=== PATIENT | male | born 1945 | race Caucasian/White ===

== ENCOUNTER 2022-11-26 12:19 | Emergency (ER) | payer MEDICARE, SELFPAY ==
[2022-11-26] VITALS (8 sets, daily range): BP systolic 113–168; BP diastolic 56–79; PULSE 54–74; RESP 15–18; TEMP 36.4; O2SAT 97–100
--- NOTE | ~2022-11-26 | XR_ITS ---
EXAMINATION: XR chest 2V DATE: 11/26/2022 12:47 INDICATION: Weakness TECHNIQUE: AP and lateral views of the chest are obtained. COMPARISON: None available FINDINGS: The lungs are free of acute opacities. No pleural effusion or pneumothorax. The cardiomedia stinal silhouette is normal. There are bridging osteophytes at multiple levels in the spine, consiste nt with diffuse idiopathic skeletal hyperostosis (DISH). IMPRESSION: 1. No acute cardiopulmonary abnormality. Reviewed, dictated and finalized at location A.
--- NOTE | 2022-11-26 12:32 | ECG_ITS ---
Measurements Intervals [place] Rate: 53 P: 3 NM: 163 QRS: -2 QRSD: 106 T: 22 QT: 448 QTc: 424 Interpretive Statements SINUS BRADYCARDIA NO PREVIOUS ECG AVAILABLE FOR COMPARISON Electronically Signed On 11-26-2022 19:21:57 CDT by Irene Aviles M.D.
--- NOTE | 2022-11-26 12:39 | ED.WEAKNESS ---
HPI - Weakness General Chief complaint: Weakness Stated complaint: weakness Time Seen by Provider: 11/26/22 12:22 History of Present Illness HPI Narrative: Patient is a 77-year-old male with a history of hypertension, HFpEF (EF 70%), diabetes presenting with lightheadedness. Patient and his family report that he was recently admitted to [place] for CHF exacerbation. They state that he was started on double the dose of Lasix and he has since lost approximately 40 pounds in the last month. Patient states that he continues to urinate a lot. For the last day and a half he has noticed lightheadedness whenever he stands. States that today he felt so lightheaded when he stood that he had to sit down for fear of passing out. EMS was called and he was noted to have some soft pressures in the 90s over 50s. He denies any chest pain, shortness of breath, palpitations, leg swelling. Denies headache, vision changes, speech changes, numbness or weakness. Denies abdominal pain, vomiting, diarrhea, dysuria. Related Data Home Medications Medication Instructions Recorded Confirmed chlorthalidone 25 mg tablet 25 mg PO DAILY 10/21/20 11/27/22 carvedilol 12.5 mg tablet (Coreg) 25 mg PO Q12HR 11/27/22 11/27/22 furosemide 40 mg tablet 40 mg PO DAILY 11/27/22 11/27/22 gabapentin 100 mg capsule 100 mg PO BID 11/27/22 11/27/22 spironolactone 25 mg tablet 12.5 mg PO BID 11/27/22 11/27/22 Allergies Allergy/AdvReac Type Severity Reaction Status Date / Time LAUREN Inhibitors Allergy Cough Verified 11/27/22 10:53 enalapril Allergy Cough Verified 11/27/22 10:53 lisinopril Allergy Cough Verified 11/27/22 10:53 quinapril Allergy Cough Verified 11/27/22 10:53 Review of Systems Review of Systems: All systems reviewed & are unremarkable except as noted in HPI and below PMFSH Past Medical History Medical History Arthritis CHF (congestive heart failure), NYHA class I COPD (chronic obstructive pulmonary disease) Depression Diabetes Surgical History Surgical History H/O foot surgery History of total knee replacement (TKR) Hx of cholecystectomy S/P insertion of penile implant Family History Family History Father Cancer Diabetes mellitus Mother Hyperlipidemia Hypertension Heart attack Sibling Hx of CABG Colon cancer Social History Social History (Updated 11/27/22 @ 20:30 by Courtney Talamantes NP) Social History: The patient lives with his . He is retired from [employer]. 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 Code status full code Smoking packs per day: 2 Smoking cigarettes per day: 40.0 Smoking status: Former smoker Tobacco type: cigarettes Second hand tobacco smoke exposure: No Alcohol intake: former Alcohol use details: wine every now and then Substance use: never Substance use type: does not use Lack of Transportation: No Lack of Food: Never True Current Housing: I Have Housing Concerned About Future Housing: No Difficulty Paying Gas/Electric Bills: No Difficulty Paying for Meds: No Currently Unemployed: No Education: High School Diploma/GED Difficulty w/ Childcare or Family Care: No Living arrangements: with family Additional living arrangements comments: - bro 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 HEAD: Normocephalic, atraumatic. EYES: PERRLA and EOMI. ENT: Nares clear, no rhinorrhea or epistaxis. Mucous membranes dry and tacky. NECK: Supple. CHEST: Clear to auscultation. No res
[2022-11-26 12:42] LABS: Basophils Absolute Auto 0.2 K/mm3 (0.0-0.1); Basophils Percent Auto 1.3 % (0.2-1.2); Eosinophils Absolute Auto 0.6 K/mm3 (0-0.3); Eosinophils Percent Auto 4.1 % (0-4.4); Hematocrit 34.4 % (42.0-52.0); Hemoglobin 11.1 g/dL (14.0-18.0); Immature Granulocyte Absolute 0.06 K/mm3 (0.00-0.031); Immature Granulocyte Percent A 0.4 % (0-0.5); Lymphocytes Absolute Auto 1.53 K/mm3 (0.9-3.2); Lymphocytes Percent Auto 10.8 % (18.3-44.2); Mean Corpuscular HGB Conc 32.3 g/dl (32-36); Mean Corpuscular Hemoglobin 33.5 pg (26-34); Mean Corpuscular Volume 103.9 fl (80-100); Mean Platelet Volume 9.9 fl (7.4-10.4); Monocytes Absolute Auto 0.7 K/mm3 (0.1-0.6); Neutrophils Absolute Auto 11.2 K/mm3 (1.3-6.7); Neutrophils Percent Auto 78.4 % (45.5-73.1); Platelet Count Result 631 k/mm3 (150-375); Red Blood Count 3.31 M/mm3 (4.6-6.20); White Blood Count 14.2 K/mm3 (4.5-10.0)
[2022-11-26 13:02] LABS: Alanine Aminotransferase 49 U/L (6-50); Albumin Level 4.4 g/dL (3.5-5.1); Alkaline Phosphatase 133 U/L (38-126); Anion Gap 10 mmol/L (8-16); Aspartate Amino Transferase 43 U/L (17-59); Bilirubin,Total 0.7 mg/dL (0.2-1.3); Blood Urea Nitrogen 92 mg/dL (9-20); Calcium 9.4 mg/dL (8.4-10.2); Carbon Dioxide 26 mmol/L (22-30); Chloride 102 mmol/L (98-107); Estimated CRCL calculation 24 ml/min; Estimated Glomerular Filt Rate 22; Glucose 211 mg/dL (65-110); Potassium 5.1 mmol/L (3.4-5.0); Sodium 138 mmol/L (137-145)
[2022-11-26] MEDS: LACTATED RINGERS 1,000 ML 999 ML IV CONT (13:40)
[2022-11-26 14:25] LABS: INR 1.1; Prothrombin Time 14.1 Seconds (11.1-14.7)
[2022-11-26 14:26] LABS: Partial Thromboplastin Time 29.2 SECONDS (22.3-36.8)
[2022-11-26 14:45] LABS: NT Pro B Type Natriuretic Pept 822 pg/mL (19.9-100); Troponin I < 0.012 ng/mL (0.000-0.034)
[2022-11-26 16:52] LABS: Appearance Urine Cloudy (Clear); Bacteria Urine Rare /hpf; Bilirubin Urine Negative (Negative); Blood Urine 3+ (Negative); Color Urine Yellow (Yellow); Glucose Urine UA Negative (Negative); Ketones Urine Negative (Negative); Leukocyte Esterase Ur 2+ LEU/UL (Negative); Need Manual Microscopic Reviewed; Nitrate Urine Negative (Negative); Protein Urine 2+ mg/dL (Negative); RBC Urine >100 /hpf (0-2); Specific Grav Ur 1.014 (1.001-1.035); Squamous Epithelial Cell Urine Moderate /hpf (Few); Urobilinogen Urine 0.2 mg/dL (<2.0); WBC Urine 51-100 /hpf
[2022-11-26 17:00] LABS: Add Urine Microscopic? YES
[2022-11-26] MEDS: CEPHALEXIN 500 MG CAPSULE PO (17:48)
[2022-11-26 18:01] LABS: Troponin I < 0.012 ng/mL (0.000-0.034)
== END 2022-11-26 19:00 | disposition home or self-care (01) ==
PROVIDERS: Emergency Medicine; Emergency Provider Emergency Medicine; PCP Hospitalist
DX: I50.9 Heart failure, unspecified (principal); N39.0 Urinary tract infection, site not specified; E86.0 Dehydration; M19.90 Unspecified osteoarthritis, unspecified site; J44.9 Chronic obstructive pulmonary disease, unspecified; F32.A Depression, unspecified; E11.9 Type 2 diabetes mellitus without complications
CPT/HCPCS: 36415; 71046; 80053; 81001; 83605; 83880; 84484; 85025; 85610; 85730; 87086; 87147; 87181; 87186; 93005; 96360; 96361; 99284; A9270; J7120

== ENCOUNTER 2022-11-27 10:33 | Inpatient (IN) | payer MEDICARE, SELFPAY ==
[2022-11-27] VITALS (47 sets, daily range): BP systolic 85–166; BP diastolic 43–75; PULSE 57–86; RESP 12–23; TEMP 36.4–36.9; O2SAT 90–99; BMI 32.3
--- NOTE | ~2022-11-27 | CT_ITS ---
EXAMINATION: CT brain wo con DATE: 11/27/2022 15:19 INDICATION: Dizziness. TECHNIQUE: Computed tomography (CT) of the head was performed without intravenous contrast. The dose- length product was 605.33 mGy-cm. Automated exposure control and iterative reconstruction technique w ere employed. COMPARISON: None FINDINGS: Generalized atrophy. There are scattered mild periventricular and subcortical white matter changes, most likely related to small vessel ischemic disease (microangiopathy). No acute intracrania l hemorrhage, infarction, mass or mass effect. No ventriculomegaly or midline shift. Basilar cisterns are patent. There is intracranial atherosclerosis. Paranasal sinuses and mastoids are pneumatized. N o depressed skull fractures. IMPRESSION: 1. No acute intracranial abnormality. 2: Chronic age-related findings. Reviewed, dictated and finalized at location A.
--- NOTE | ~2022-11-27 | XR_ITS ---
Clinical Indication: Weakness AP and lateral views of the chest: Comparison: 11/26/2022 Findings: The lungs are clear, without evidence of focal consolidation or pleural effusion. Cardiome diastinal silhouette is within normal limits. Bones and soft tissues are unremarkable. Impression: Normal chest. Reviewed, dictated and finalized at location . Impression: Normal chest.
--- NOTE | 2022-11-27 10:46 | ECG_ITS ---
Measurements Intervals [place] Rate: 60 P: 21 [place]: 168 QRS: -16 QRSD: 102 T: 40 QT: 412 QTc: 413 Interpretive Statements SINUS RHYTHM NORMAL ELECTROCARDIOGRAM COMPARED TO ECG 11/26/2022 12:36:53 SINUS RHYTHM NOW PRESENT Electronically Signed On 11-28-2022 6:51:58 CDT by Ahmet Diaz M.D.
[2022-11-27 11:00] LABS: Basophils Absolute Auto 0.1 K/mm3 (0.0-0.1); Basophils Percent Auto 1.1 % (0.2-1.2); Eosinophils Absolute Auto 0.1 K/mm3 (0-0.3); Hematocrit 30.7 % (42.0-52.0); Immature Granulocyte Absolute 0.05 K/mm3 (0.00-0.031); Immature Granulocyte Percent A 0.4 % (0-0.5); Lymphocytes Absolute Auto 0.36 K/mm3 (0.9-3.2); Lymphocytes Percent Auto 2.9 % (18.3-44.2); Mean Corpuscular HGB Conc 32.6 g/dl (32-36); Mean Corpuscular Volume 101.3 fl (80-100); Mean Platelet Volume 9.8 fl (7.4-10.4); Monocytes Absolute Auto 0.6 K/mm3 (0.1-0.6); Neutrophils Percent Auto 89.6 % (45.5-73.1); Platelet Count Result 569 k/mm3 (150-375); Red Blood Count 3.03 M/mm3 (4.6-6.20); White Blood Count 12.2 K/mm3 (4.5-10.0)
[2022-11-27 11:11] LABS: Alanine Aminotransferase 41 U/L (6-50); Albumin Level 4.1 g/dL (3.5-5.1); Alkaline Phosphatase 117 U/L (38-126); Anion Gap 9 mmol/L (8-16); Aspartate Amino Transferase 30 U/L (17-59); Bilirubin,Total 0.6 mg/dL (0.2-1.3); Blood Urea Nitrogen 79 mg/dL (9-20); Calcium 8.8 mg/dL (8.4-10.2); Carbon Dioxide 26 mmol/L (22-30); Chloride 101 mmol/L (98-107); Estimated CRCL calculation 27 ml/min; Estimated Glomerular Filt Rate 25; Glucose 285 mg/dL (65-110); Potassium 4.9 mmol/L (3.4-5.0); Sodium 136 mmol/L (137-145)
[2022-11-27] MEDS: SODIUM CHLORIDE 0.9% IV 1,000 ML 999 ML IV CONT (11:58)
--- NOTE | 2022-11-27 13:41 | ED.GENADULT ---
HPI - General Adult General Chief complaint: Dizziness Stated complaint: fall/ dizzy/ uti Time Seen by Provider: 11/27/22 10:34 History of Present Illness HPI narrative: Patient is a 77-year-old male who presents ER with dizziness and fall. Patient was seen in the ER yesterday for orthostasis and a UTI. He recovered well after fluids. He had been suffering likely due to overdiuresis with Lasix and spironolactone as well as losartan. Patient reports he got up and was walking and became very lightheaded when he fell onto his buttock. He did not strike his head or lose consciousness. He has no injury to his extremities. He reports he did not fill his antibiotic yesterday. Denies fevers or chills or sweats. Related Data Home Medications Medication Instructions Recorded Confirmed chlorthalidone 25 mg tablet 25 mg PO DAILY 10/21/20 11/27/22 carvedilol 12.5 mg tablet (Coreg) 25 mg PO Q12HR 11/27/22 11/27/22 furosemide 40 mg tablet 40 mg PO DAILY 11/27/22 11/27/22 gabapentin 100 mg capsule 100 mg PO BID 11/27/22 11/27/22 spironolactone 25 mg tablet 12.5 mg PO BID 11/27/22 11/27/22 Allergies Allergy/AdvReac Type Severity Reaction Status Date / Time LAUREN Inhibitors Allergy Cough Verified 11/27/22 10:53 enalapril Allergy Cough Verified 11/27/22 10:53 lisinopril Allergy Cough Verified 11/27/22 10:53 quinapril Allergy Cough Verified 11/27/22 10:53 Review of Systems Review of Systems: All systems reviewed & are unremarkable except as noted in HPI and below Constitutional: Constitutional: Denies chills, Denies fatigue and Denies fever(s) ENT: Denies nasal congestion and Denies sore throat Cardiovascular: Cardiovascular: Denies chest pain, Denies rapid heart rate and Denies radiating jaw, neck or arm pain Respiratory: Respiratory: Denies cough and Denies dyspnea Gastrointestinal: Gastrointestinal: Denies abdominal pain, Denies nausea and Denies vomiting Neurologic: Reports dizziness, Denies syncope, Denies headache(s), Denies focal weakness and Denies numbness PMFSH Past Medical History Medical History Arthritis CHF (congestive heart failure), NYHA class I Depression Diabetes Surgical History Surgical History History of total knee replacement (TKR) Family History Family History Father Cancer Diabetes mellitus Mother Hyperlipidemia Hypertension Heart attack Sibling Hx of CABG Colon cancer Social History Social History Smoking packs per day: 2 Smoking cigarettes per day: 40.0 Smoking status: Former smoker Tobacco type: cigarettes Second hand tobacco smoke exposure: No Alcohol intake: former Alcohol use details: wine every now and then Substance use: never Substance use type: does not use Lack of Transportation: No Lack of Food: Never True Current Housing: I Have Housing Concerned About Future Housing: No Difficulty Paying Gas/Electric Bills: No Difficulty Paying for Meds: No Currently Unemployed: No Education: High School Diploma/GED Difficulty w/ Childcare or Family Care: No Living arrangements: with family Additional living arrangements comments: - bro 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 HEAD: Normocephalic, atraumatic. EYES: PERRL and EOMI. ENT: Mucous membranes moist. CHEST: Clear to auscultation. No respiratory distress. HEART: Regular rate and rhythm. Normal peripheral pulses. ABDOMEN: Soft, nontender, nondistended.
--- NOTE | 2022-11-27 16:18 | PM.IMHP ---
H&P: HPI History of Present Illness Date/Time: 11/27/22 16:18 Chief Complaint: Dizziness Narrative: This is a 77-year-old male patient who had been in the emergency room at yesterday. He had been complaining of weakness and dizziness and lightheadedness yesterday. The patient reported that he was recently admitted to [facility] for congestive heart failure. The patient stated that he had a double dose of Lasix and since then he has lost approximately 40 lb in the last month according to the patient. The patient continues to urinate quite frequently. The patient noticed that he has more lightheaded when he stands. The patient had to immediately sit down after standing up yesterday as he felt like he was going to pass out. His blood pressures and noted to be soft yesterday. His workup was concerning for urinary tract infection. Antibiotics had already been prescribed. He was instructed to increase his fluid intake over the next several days. Is recommended for the patient to drink Gatorade or Powerade. The patient had been discharged home and has been on Keflex. The patient returns today with dizziness and falling. His white count is noted to be 12.2. H&H is 10.0 and 30.7. Sodium is 136. BUN is 79 creatinine 2.5. This is his baseline. Blood sugars 285 and then 264. His urine from yesterday was cloudy and had 2+ protein and 3+ blood patient had 2+ leukocyte esterase and WBCs 51-100. The patient has been on Keflex. Urine cultures pending. The patient was found have orthostatic blood pressures in the emergency room. Blood pressure is 121/65 and then 101/43 standing. The patient was given IV fluids and Rocephin. Patient is being admitted to observation status on the date of service of 11/27/2022. Review of Systems Review of Systems: All systems reviewed & are unremarkable except as noted in HPI and below Constitutional: Constitutional: Reports as per HPI and Reports no additional constitutional complaints Eyes: Eyes: Reports as per HPI and Reports no additional eye complaints ENT: Reports system reviewed and no additional complaints, except as documented and Reports Normal hearing present Cardiovascular: Cardiovascular: Reports no additional cardiovascular complaints Respiratory: Respiratory: Reports no additional respiratory complaints and Reports no additional respiratory complaints Gastrointestinal: Gastrointestinal: Reports as per HPI and Reports no additional gastrointestinal complaints Musculoskeletal: Musculoskeletal: Reports no additional musculoskeletal complaints Integumentary/Breasts: Skin/Breast: Reports system reviewed and no additional complaints, except as docu and Reports as per HPI Neurologic: Reports system reviewed and no additional complaints, except as documented, Reports as per HPI and Reports Normal hearing present Psychiatric: Psychiatric: Reports no additional psychiatric complaints and Reports as per HPI Endocrine: Endocrine: Reports no additional endocrine complaints Hematologic/Lymphatic: Hematologic/Lymphatic: Reports no additional hematologic/lymphatic complaints Allergic/Immunologic: Allergic/Immunologic: Reports no additional allergic/immunologic complaints FOR[facility]LY [facility], [facility] Past Medical History Medical History Arthritis CHF (congestive heart failure), NYHA class I COPD (chronic obstructive pulmonary disease) Depression Diabetes Surgical History Surgical History H/O foot surgery History of total knee replacement (TKR) Hx of cholecystectomy S/P insertion of penile implant Family History Family History Father Cancer Diabetes mellitus Mother Hyperlipidemia Hypertension Heart attack Sibling Hx of CABG Colon cancer Social History Social History (Updated 11/27/22 @ 20:30 by Courtney Talamantes NP) Social History:
[2022-11-27 17:11] LABS: Glucose Point of Care 264 mg/dl (65-105)
[2022-11-27] MEDS: INSULIN ASPART (*BKC) 100 UNITS/ML SUB-Q (18:24)
[2022-11-27 20:25] LABS: Glucose Point of Care 344 mg/dl (65-105)
[2022-11-27] MEDS: INSULIN ASPART (*BKC) 100 UNITS/ML 6 UNITS SUB-Q (20:48)
[2022-11-27] MEDS: INSULIN GLARGINE (*BKC) 100 UNITS/ML 24 UNITS SUB-Q (21:41)
[2022-11-27] MEDS: GABAPENTIN 100 MG CAPSULE PO (22:01)
[2022-11-27 22:08] LABS: Hematocrit 30.8 % (42.0-52.0); Hemoglobin 10.1 g/dL (14.0-18.0)
[2022-11-28] VITALS (21 sets, daily range): BP systolic 106–156; BP diastolic 51–74; PULSE 64–86; RESP 15–20; TEMP 36.1–37; O2SAT 95–98
[2022-11-28] MEDS: LEVALBUTEROL NEB 1.25 MG/3 ML 0.63 MG INHALATION ×4 (03:10→19:36)
[2022-11-28 05:25] LABS: Basophils Absolute Auto 0.2 K/mm3 (0.0-0.1); Basophils Percent Auto 1.9 % (0.2-1.2); Eosinophils Absolute Auto 0.7 K/mm3 (0-0.3); Eosinophils Percent Auto 7.2 % (0-4.4); Hematocrit 31.6 % (42.0-52.0); Hemoglobin 10.3 g/dL (14.0-18.0); Immature Granulocyte Absolute 0.04 K/mm3 (0.00-0.031); Immature Granulocyte Percent A 0.4 % (0-0.5); Lymphocytes Absolute Auto 1.26 K/mm3 (0.9-3.2); Lymphocytes Percent Auto 12.9 % (18.3-44.2); Mean Corpuscular HGB Conc 32.6 g/dl (32-36); Mean Corpuscular Hemoglobin 33.4 pg (26-34); Mean Corpuscular Volume 102.6 fl (80-100); Mean Platelet Volume 9.9 fl (7.4-10.4); Monocytes Percent Auto 10.2 % (2.6-8.5); Neutrophils Absolute Auto 6.6 K/mm3 (1.3-6.7); Neutrophils Percent Auto 67.4 % (45.5-73.1); Platelet Count Result 498 k/mm3 (150-375); Red Blood Count 3.08 M/mm3 (4.6-6.20); Red Cell Distribution Width 18.2 % (11.5-14.5); White Blood Count 9.8 K/mm3 (4.5-10.0)
[2022-11-28 05:26] LABS: Lactic Acid Reflex 0.7 mmol/L (0.7-2.0)
[2022-11-28 05:28] LABS: Magnesium 1.8 mg/dL (1.6-2.3)
[2022-11-28 06:02] LABS: Hemoglobin A1C 5.1 % (<5.7)
[2022-11-28 08:09] LABS: Glucose Point of Care 212 mg/dl (65-105)
[2022-11-28 08:13] LABS: Hematocrit 31.7 % (42.0-52.0); Hemoglobin 10.4 g/dL (14.0-18.0)
[2022-11-28 08:16] LABS: Alanine Aminotransferase 40 U/L (6-50); Albumin Level 3.7 g/dL (3.5-5.1); Alkaline Phosphatase 109 U/L (38-126); Anion Gap 6 mmol/L (8-16); Aspartate Amino Transferase 34 U/L (17-59); Bilirubin,Total 0.4 mg/dL (0.2-1.3); Blood Urea Nitrogen 72 mg/dL (9-20); Calcium 8.7 mg/dL (8.4-10.2); Carbon Dioxide 28 mmol/L (22-30); Chloride 102 mmol/L (98-107); Estimated CRCL calculation 28 ml/min; Estimated Glomerular Filt Rate 26; Glucose 243 mg/dL (65-110); Potassium 4.8 mmol/L (3.4-5.0); Sodium 136 mmol/L (137-145)
[2022-11-28] MEDS: GABAPENTIN 100 MG CAPSULE PO ×2 (08:28→17:46)
[2022-11-28] MEDS: buPROPion HCL 75 MG TABLET PO ×2 (08:28→20:50)
[2022-11-28] MEDS: ASPIRIN 81 MG CHEWABLE TABLET PO (08:28)
[2022-11-28] MEDS: PANTOPRAZOLE 40 MG TABLET PO (08:28)
[2022-11-28] MEDS: SERTRALINE HCL 25 MG TABLET PO (08:28)
[2022-11-28] MEDS: INSULIN ASPART (*BKC) 100 UNITS/ML SUB-Q ×3 (08:45→18:12)
[2022-11-28 12:14] LABS: Glucose Point of Care 393 mg/dl (65-105)
--- NOTE | 2022-11-28 13:16 | PM.IMPN ---
Progress Note: A&P Assessment and Plan (1) Orthostatic hypotension: Code(s): I95.1 - Orthostatic hypotension Status: Acute Assessment and Plan: He has been complaining of dizziness. Especially when he stands up. Patient has orthostatic hypotension. patient recently diagnosed with CHF and started on spironolactone, furosemide and chlorthalidone. The patient has been on diuretics. Diuretics put on hold. I did order CT of the head which shows no acute intracranial abnormality. Chronic age-related findings. Orthostatics Q shift Check stool for occult blood. H&H every 6 hours. Patient denies any dark stools or any active bleeding. He is on an aspirin but not any anticoagulations. (2) Acute UTI: Code(s): N39.0 - Urinary tract infection, site not specified Status: Acute Assessment and Plan: The patient had been on Keflex outpatient Urine and blood cultures are pending Continue with Rocephin Patient did also feel dizzy due to his infectious process. Tailor antibiotic therapy to culture results (3) Chronic anemia: Code(s): D64.9 - Anemia, unspecified Status: Acute Assessment and Plan: Check stool for occult blood H&H every 6 hours. (4) Chronic kidney disease: Code(s): N18.9 - Chronic kidney disease, unspecified Status: Acute Assessment and Plan: His BUN is 79 creatinine 2.5 the patient is at his baseline. His GFR is 25. (5) COPD (chronic obstructive pulmonary disease): Code(s): J44.9 - Chronic obstructive pulmonary disease, unspecified Status: Acute Assessment and Plan: There is a nationwide shortage on albuterol so will continue with Xopenex instead. (6) Diabetes mellitus: Code(s): E11.9 - Type 2 diabetes mellitus without complications Status: Acute Assessment and Plan: Accu-Cheks AC and HS with sliding scale insulin. Check A1c. Continue with Lantus\ (7) Diastolic congestive heart failure: Code(s): I50.30 - Unspecified diastolic (congestive) heart failure Status: Acute Assessment and Plan: The patient has orthostatic hypotension. No previous echo was noted here. The patient did not appear to be having exacerbation of congestive heart failure at this time. Continue Coreg and losartan (8) Hypertension: Code(s): I10 - Essential (primary) hypertension Status: Acute Assessment and Plan: patient's diuretics on hold Continue Coreg and losartan. (9) Neuropathy: Code(s): G62.9 - Polyneuropathy, unspecified Status: Acute Assessment and Plan: Continue with gabapentin. Continue with Wellbutrin Continue Zoloft Subjective Date/time seen: 11/28/22 13:16 Interval history: Patient doing well today and states that his dizziness has resolved. He is able to get up walk around without feeling dizzy or lightheaded. He denies urinary symptoms and states he never had urinary symptoms although his UA was positive for UTI. Patient denies pedal edema, chest pain, shortness a breath nausea and vomiting Review of Systems Review of Systems: All systems reviewed & are unremarkable except as noted in HPI and below Exam Narrative: GENERAL: Comfortable, no acute distress HENMT: moist mucous membranes EYES: EOM intact b/l NECK: no lymphadenopathy RESPIRATORY: clear to auscultation CARDIO: RRR GI: soft, nontender, bowel sounds present SKIN: no rashes EXTREMITIES: no edema, redness or tenderness Objective Data Vital Signs Vital Signs: Vital Signs - 24 hr 11/27/22 13:45 11/27/22 14:03 11/27/22 14:04 Temperature Pulse Rate 67 65 71 Respiratory Rate 20 Blood Pressure 138/68 121/65 Pulse Oximetry 98 Oxygen Delivery 11/27/22 14:07 11/27/22 13:57 11/27/22 14:00 Temperature Pulse Rate 69 68 67 Respiratory Rate 13 13 Bloo
[2022-11-28 15:49] LABS: Hematocrit 30.5 % (42.0-52.0); Hemoglobin 10.2 g/dL (14.0-18.0)
[2022-11-28] MEDS: INSULIN GLARGINE (*BKC) 100 UNITS/ML 24 UNITS SUB-Q (17:47)
[2022-11-28 17:58] LABS: Glucose Point of Care 272 mg/dl (65-105)
[2022-11-28] MEDS: rOPINIRole HCL 0.5 MG TABLET PO (20:50)
[2022-11-28] MEDS: carvediloL 25 MG TABLET PO (20:50)
[2022-11-28 21:27] LABS: Glucose Point of Care 252 mg/dl (65-105)
[2022-11-29] VITALS (25 sets, daily range): BP systolic 94–162; BP diastolic 39–73; PULSE 56–83; RESP 16–20; TEMP 36.3–36.9; O2SAT 94–98
[2022-11-29] MEDS: LEVALBUTEROL NEB 1.25 MG/3 ML 0.63 MG INHALATION ×4 (01:32→21:19)
[2022-11-29 05:39] LABS: Hemoglobin A1C 9.1 % (<5.7)
[2022-11-29 05:41] LABS: Basophils Absolute Auto 0.2 K/mm3 (0.0-0.1); Basophils Percent Auto 1.6 % (0.2-1.2); Eosinophils Absolute Auto 1.1 K/mm3 (0-0.3); Eosinophils Percent Auto 9.9 % (0-4.4); Hematocrit 31.3 % (42.0-52.0); Hemoglobin 10.2 g/dL (14.0-18.0); Immature Granulocyte Absolute 0.04 K/mm3 (0.00-0.031); Immature Granulocyte Percent A 0.4 % (0-0.5); Lymphocytes Absolute Auto 1.64 K/mm3 (0.9-3.2); Lymphocytes Percent Auto 14.4 % (18.3-44.2); Mean Corpuscular HGB Conc 32.6 g/dl (32-36); Mean Corpuscular Hemoglobin 33.7 pg (26-34); Mean Corpuscular Volume 103.3 fl (80-100); Mean Platelet Volume 10.2 fl (7.4-10.4); Monocytes Percent Auto 9.1 % (2.6-8.5); Neutrophils Absolute Auto 7.4 K/mm3 (1.3-6.7); Neutrophils Percent Auto 64.6 % (45.5-73.1); Platelet Count Result 473 k/mm3 (150-375); Red Blood Count 3.03 M/mm3 (4.6-6.20); Red Cell Distribution Width 18.2 % (11.5-14.5); White Blood Count 11.4 K/mm3 (4.5-10.0)
[2022-11-29 05:45] LABS: Alanine Aminotransferase 39 U/L (6-50); Albumin Level 3.7 g/dL (3.5-5.1); Alkaline Phosphatase 102 U/L (38-126); Anion Gap 7 mmol/L (8-16); Aspartate Amino Transferase 35 U/L (17-59); Bilirubin,Total 0.5 mg/dL (0.2-1.3); Blood Urea Nitrogen 59 mg/dL (9-20); Calcium 8.4 mg/dL (8.4-10.2); Carbon Dioxide 25 mmol/L (22-30); Chloride 103 mmol/L (98-107); Estimated CRCL calculation 33 ml/min; Estimated Glomerular Filt Rate 33; Glucose 224 mg/dL (65-110); Potassium 4.6 mmol/L (3.4-5.0); Sodium 135 mmol/L (137-145)
[2022-11-29 08:20] LABS: Glucose Point of Care 218 mg/dl (65-105)
[2022-11-29] MEDS: ASPIRIN 81 MG CHEWABLE TABLET PO (08:33)
[2022-11-29] MEDS: buPROPion HCL 75 MG TABLET PO ×2 (08:34→20:06)
[2022-11-29] MEDS: carvediloL 25 MG TABLET PO (08:34)
[2022-11-29] MEDS: SERTRALINE HCL 25 MG TABLET PO (08:35)
[2022-11-29] MEDS: PANTOPRAZOLE 40 MG TABLET PO (08:35)
[2022-11-29] MEDS: GABAPENTIN 100 MG CAPSULE PO ×2 (08:35→17:51)
[2022-11-29] MEDS: INSULIN ASPART (*BKC) 100 UNITS/ML SUB-Q ×2 (08:36→12:18)
[2022-11-29 12:09] LABS: Glucose Point of Care 360 mg/dl (65-105)
[2022-11-29] MEDS: INSULIN ASPART (*BKC) 100 UNITS/ML 8 UNITS SUB-Q ×2 (12:18→17:52)
[2022-11-29] MEDS: AMOXICILLIN 500 MG CAPSULE PO ×2 (14:26→21:08)
[2022-11-29] MEDS: SODIUM CHLORIDE 0.9% IV 250 ML 75 ML IV CONT (16:12)
--- NOTE | 2022-11-29 16:58 | P.PNIM_ITS ---
Progress Note: A&P Assessment and Plan (1) Orthostatic hypotension: Code(s): I95.1 - Orthostatic hypotension Status: Acute Assessment and Plan: He has been complaining of dizziness. Especially when he stands up. Patient has orthostatic hypotension. patient recently diagnosed with CHF and started on spironolactone, furosemide and chlorthalidone. * The patient has been on multiple diuretics. Continue to hold diuretics. * CT of the head which shows no acute intracranial abnormality. Chronic age- related findings. * Orthostatics Q shift * 11/29 Orthostatic vitals still positive- BP 140/60 HR 61 lying, BP 94/47 HR 70 sitting, and BP 97/49 HR 71 sitting. Give slow 250 mL bolus x1 and repeat orthostatic vitals.?bilateral knee RODRÍGUEZ hose.? * Check stool for occult blood which is pending. H&H stable- unlikely secondary to acute blood loss. Patient denies any dark stools or any active bleeding. He is on an aspirin but not any anticoagulations. * Likely secondary to dehydration. (2) Acute UTI: Code(s): N39.0 - Urinary tract infection, site not specified Status: Acute Assessment and Plan: The patient had been on Keflex outpatient, prescribed 11/27 outpatient. * Urine culture with enterococcus species pansensitive. * blood cultures negative to date. * 11/29 Stop Rocephin d/t urine culture results. No antibiotic allergies noted. Avoid macrobid d/t CKD. Start amoxicillin 500 mg PO Q8 hours x 7 days. * WBC 11.4 today 11/29. Repeat CBC tomorrow. (3) Chronic anemia: Code(s): D64.9 - Anemia, unspecified Status: Acute Assessment and Plan: H/H 10/31%. MCV elevated. * Check stool for occult blood * Hgb stable 10 since 11/27. * Check B12, folate, iron panel, transferrin, and reticulocyte count. * Ferritin 498 and elevated but may be elevated secondary to inflammation given it is and acute phase reactant. (4) Chronic kidney disease: Code(s): N18.9 - Chronic kidney disease, unspecified Status: Chronic Assessment and Plan: Likely acute on chronic exacerbation. BUN 97, creatinine 2.8 and GFR 22. Unknown baseline. * Hold diuretics. * Trend BMP. Slowly trending down. * Given 250 mL NS bolus x1 on 11/29 * No overt hypervolemia and +orthostatics suggests hypovolemia and some component of prerenal azotemia * Monitor I/O. (5) COPD (chronic obstructive pulmonary disease): Code(s): J44.9 - Chronic obstructive pulmonary disease, unspecified Status: Chronic Assessment and Plan: Not in acute exacerbation. Continue Xopenex nebs. 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 * A1c 9.1% on 11/29. 11/28 A1c 5.1% but I suspect this is a lab error as he reports blood sugars run in the low 200s and current blood sugars 250-300s. * Continue Accu-Cheks AC and HS with sliding scale insulin. * Fasting glucose >200 for the past 48 hours. Increase lantus 30 units at HS. Given HS snack to prevent overnight hypoglycemia. * Resume aspart 8 units TID with meals plus aspart low sliding scale with meals. * Adjust insulin as needed with goal glucose 140-180s and A1c 7%. * He was counseled t
--- NOTE | 2022-11-29 16:58 | PM.IMPN ---
Progress Note: A&P Assessment and Plan (1) Orthostatic hypotension: Code(s): I95.1 - Orthostatic hypotension Status: Acute Assessment and Plan: He has been complaining of dizziness. Especially when he stands up. Patient has orthostatic hypotension. patient recently diagnosed with CHF and started on spironolactone, furosemide and chlorthalidone. The patient has been on multiple diuretics. Continue to hold diuretics. CT of the head which shows no acute intracranial abnormality. Chronic age-related findings. Orthostatics Q shift 11/29 Orthostatic vitals still positive- BP 140/60 HR 61 lying, BP 94/47 HR 70 sitting, and BP 97/49 HR 71 sitting. Give slow 250 mL bolus x1 and repeat orthostatic vitals.?bilateral knee RODRÍGUEZ hose.? Check stool for occult blood which is pending. H&H stable- unlikely secondary to acute blood loss. Patient denies any dark stools or any active bleeding. He is on an aspirin but not any anticoagulations. Likely secondary to dehydration. (2) Acute UTI: Code(s): N39.0 - Urinary tract infection, site not specified Status: Acute Assessment and Plan: The patient had been on Keflex outpatient, prescribed 11/27 outpatient. Urine culture with enterococcus species pansensitive. blood cultures negative to date. 11/29 Stop Rocephin d/t urine culture results. No antibiotic allergies noted. Avoid macrobid d/t CKD. Start amoxicillin 500 mg PO Q8 hours x 7 days. WBC 11.4 today 11/29. Repeat CBC tomorrow. (3) Chronic anemia: Code(s): D64.9 - Anemia, unspecified Status: Acute Assessment and Plan: H/H 10/31%. MCV elevated. Check stool for occult blood Hgb stable 10 since 11/27. Check B12, folate, iron panel, transferrin, and reticulocyte count. Ferritin 498 and elevated but may be elevated secondary to inflammation given it is and acute phase reactant. (4) Chronic kidney disease: Code(s): N18.9 - Chronic kidney disease, unspecified Status: Chronic Assessment and Plan: Likely acute on chronic exacerbation. BUN 97, creatinine 2.8 and GFR 22. Unknown baseline. Hold diuretics. Trend BMP. Slowly trending down. Given 250 mL NS bolus x1 on 11/29 No overt hypervolemia and +orthostatics suggests hypovolemia and some component of prerenal azotemia Monitor I/O. (5) COPD (chronic obstructive pulmonary disease): Code(s): J44.9 - Chronic obstructive pulmonary disease, unspecified Status: Chronic Assessment and Plan: Not in acute exacerbation. Continue Xopenex nebs. 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 A1c 9.1% on 11/29. 11/28 A1c 5.1% but I suspect this is a lab error as he reports blood sugars run in the low 200s and current blood sugars 250-300s. Continue Accu-Cheks AC and HS with sliding scale insulin. Fasting glucose >200 for the past 48 hours. Increase lantus 30 units at HS. Given HS snack to prevent overnight hypoglycemia. Resume aspart 8 units TID with meals plus aspart low sliding scale with meals. Adjust insulin as needed with goal glucose 140-180s and A1c 7%. He was counseled to check his feet daily Chronic neuropathy noted continue gabapentin 100 mg BID. Check B12. Continue consistent carb diet. (7) Neuropathy: Code(s): G62.9 - Polyneuropathy, unspecified Status: Chronic Assessment and Plan: Chronic, bilateral feet. continue management as above. (8) Diastolic congestive heart failure: Code(s): I50.30 - Unspecified
[2022-11-29 17:22] LABS: Glucose Point of Care 128 mg/dl (65-105)
[2022-11-29] MEDS: INSULIN GLARGINE (*BKC) 100 UNITS/ML 30 UNITS SUB-Q (17:53)
[2022-11-29] MEDS: rOPINIRole HCL 0.5 MG TABLET PO (20:05)
[2022-11-29] MEDS: carvediloL 12.5 MG TABLET PO (20:06)
[2022-11-29 20:15] LABS: Glucose Point of Care 153 mg/dl (65-105)
[2022-11-30] VITALS (18 sets, daily range): BP systolic 103–185; BP diastolic 47–68; PULSE 57–72; RESP 18; TEMP 36.2–36.9; O2SAT 94–99
[2022-11-30 05:53] LABS: Hematocrit 29.7 % (42.0-52.0); Hemoglobin 9.5 g/dL (14.0-18.0); Mean Corpuscular Hemoglobin 32.9 pg (26-34); Mean Corpuscular Volume 102.8 fl (80-100); Mean Platelet Volume 10.3 fl (7.4-10.4); Platelet Count Result 415 k/mm3 (150-375); Red Blood Count 2.89 M/mm3 (4.6-6.20); White Blood Count 13.2 K/mm3 (4.5-10.0)
[2022-11-30 05:55] LABS: Immature Reticulocyte Fraction 21.7 % (3.0-15.9); Reticulocyte Hemoglobin Conten 38.6 pg (28.2-35.7); Reticulocyte Percent 1.92 % (0.7-4.3); Reticulocytes Absolute 0.05 B/L (32.2-175.7)
[2022-11-30 06:04] LABS: Anion Gap 7 mmol/L (8-16); Blood Urea Nitrogen 54 mg/dL (9-20); Carbon Dioxide 24 mmol/L (22-30); Chloride 103 mmol/L (98-107); Estimated CRCL calculation 33 ml/min; Estimated Glomerular Filt Rate 33; Glucose 164 mg/dL (65-110); Magnesium 1.8 mg/dL (1.6-2.3); Phosphorus 3.2 mg/dL (2.5-4.5); Potassium 4.7 mmol/L (3.4-5.0); Sodium 134 mmol/L (137-145)
[2022-11-30 06:07] LABS: Transferrin 177 mg/dL (206-381)
[2022-11-30 06:11] LABS: Iron 36 ug/dL (49-181)
[2022-11-30] MEDS: AMOXICILLIN 500 MG CAPSULE PO ×3 (06:21→20:24)
[2022-11-30 06:23] LABS: Percent Iron Saturation 14 % (20-50)
[2022-11-30] MEDS: ACETAMINOPHEN 325 MG TABLET 650 MG PO (06:47)
[2022-11-30 07:10] LABS: Folic Acid 11.8 ng/mL (2.76->20)
[2022-11-30 08:49] LABS: Glucose Point of Care 164 mg/dl (65-105)
[2022-11-30] MEDS: LEVALBUTEROL NEB 1.25 MG/3 ML 0.63 MG INHALATION ×2 (08:56→14:10)
[2022-11-30] MEDS: INSULIN ASPART (*BKC) 100 UNITS/ML 8 UNITS SUB-Q ×3 (09:12→17:50)
[2022-11-30] MEDS: carvediloL 12.5 MG TABLET PO ×2 (09:13→20:24)
[2022-11-30] MEDS: buPROPion HCL 75 MG TABLET PO ×2 (09:13→20:23)
[2022-11-30] MEDS: GABAPENTIN 100 MG CAPSULE PO ×2 (09:14→17:49)
[2022-11-30] MEDS: SERTRALINE HCL 25 MG TABLET PO (09:14)
[2022-11-30] MEDS: ASPIRIN 81 MG CHEWABLE TABLET PO (09:15)
[2022-11-30] MEDS: PANTOPRAZOLE 40 MG TABLET PO (09:15)
[2022-11-30] MEDS: MAGNESIUM SULF 1 GM/D5W 100 ML 1 GM/100 ML BAG IVPB (11:39)
[2022-11-30 11:55] LABS: Glucose Point of Care 243 mg/dl (65-105)
[2022-11-30] MEDS: SODIUM CHLORIDE 0.9% IV 1,000 ML 70 ML IV CONT (12:23)
[2022-11-30] MEDS: INSULIN ASPART (*BKC) 100 UNITS/ML SUB-Q (12:24)
--- NOTE | 2022-11-30 16:04 | P.PNIM_ITS ---
Progress Note: A&P Assessment and Plan (1) Orthostatic hypotension: Code(s): I95.1 - Orthostatic hypotension Status: Acute Assessment and Plan: He has been complaining of dizziness. Especially when he stands up. Patient has orthostatic hypotension. patient recently diagnosed with CHF and started on spironolactone, furosemide and chlorthalidone. * The patient has been on multiple diuretics. Continue to hold diuretics. * CT of the head which shows no acute intracranial abnormality. Chronic age- related findings. * Orthostatics Q shift * 11/29 Orthostatic vitals still positive- BP 140/60 HR 61 lying, BP 94/47 HR 70 sitting, and BP 97/49 HR 71 sitting. Give slow 250 mL bolus x1 and repeat orthostatic vitals.?bilateral knee RODRÍGUEZ hose.? * Check stool for occult blood which is pending. H&H stable- unlikely secondary to acute blood loss. Patient denies any dark stools or any active bleeding. He is on an aspirin but not any anticoagulations. * Likely secondary to dehydration. * 11/30 Orthostatic vitals- 170/61 HR 68 lying, 113/68 HR 72 sitting, 103/47 HR 71 standing. Give 1L NS fluids x1 @70 mL/hour. Continue to hold diuretics. (2) Acute UTI: Code(s): N39.0 - Urinary tract infection, site not specified Status: Acute Assessment and Plan: The patient had been on Keflex outpatient, prescribed 11/27 outpatient. * Urine culture with enterococcus species pansensitive. * blood cultures negative to date. * 11/29 Stop Rocephin d/t urine culture results. No antibiotic allergies noted. Avoid macrobid d/t CKD. Start amoxicillin 500 mg PO Q8 hours x 7 days. * WBC 11.4 today 11/29. * WBC 13, clinically feels improved and afebrile. Monitor for now. (3) Chronic anemia: Code(s): D64.9 - Anemia, unspecified Status: Acute Assessment and Plan: H/H 10/31%. MCV elevated. * Check stool for occult blood * Hgb stable 10 since 11/27. Hgb 9.6 on 11/30 * B12 747 and normal, folate 11.8 and normal * serum iron low 36, saturation 14%, TIBC low 258, transferrin 177. * Reticulocyte count 0.05 low, immature retic 21.7% * Ferritin 498 and elevated but may be elevated secondary to inflammation given it is and acute phase reactant. * Likely anemia of chronic disease from CKD and multiple medical comorbidities. (4) Chronic kidney disease: Code(s): N18.9 - Chronic kidney disease, unspecified Status: Chronic Assessment and Plan: Likely acute on chronic exacerbation. BUN 97, creatinine 2.8 and GFR 22. Unknown baseline. * Hold diuretics. * Trend BMP. Slowly trending down. * Given 250 mL NS bolus x1 on 11/29 * No overt hypervolemia and +orthostatics suggests hypovolemia and some component of prerenal azotemia * Monitor I/O. * 11/30 renal function unchanged from 11/29 (5) COPD (chronic obstructive pulmonary disease): Qualifiers: COPD type: unspecified COPD Qualified Code(s): J44.9 - Chronic obstructive pulmonary disease, unspecified Code(s): J44.9 - Chronic obstructive pulmonary disease, unspecified Status: Chronic Assessment and Plan: Not in acute exacerbation. 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
--- NOTE | 2022-11-30 16:04 | PM.IMPN ---
Progress Note: A&P Assessment and Plan (1) Orthostatic hypotension: Code(s): I95.1 - Orthostatic hypotension Status: Acute Assessment and Plan: He has been complaining of dizziness. Especially when he stands up. Patient has orthostatic hypotension. patient recently diagnosed with CHF and started on spironolactone, furosemide and chlorthalidone. The patient has been on multiple diuretics. Continue to hold diuretics. CT of the head which shows no acute intracranial abnormality. Chronic age-related findings. Orthostatics Q shift 11/29 Orthostatic vitals still positive- BP 140/60 HR 61 lying, BP 94/47 HR 70 sitting, and BP 97/49 HR 71 sitting. Give slow 250 mL bolus x1 and repeat orthostatic vitals.?bilateral knee RODRÍGUEZ hose.? Check stool for occult blood which is pending. H&H stable- unlikely secondary to acute blood loss. Patient denies any dark stools or any active bleeding. He is on an aspirin but not any anticoagulations. Likely secondary to dehydration. 11/30 Orthostatic vitals- 170/61 HR 68 lying, 113/68 HR 72 sitting, 103/47 HR 71 standing. Give 1L NS fluids x1 @70 mL/hour. Continue to hold diuretics. (2) Acute UTI: Code(s): N39.0 - Urinary tract infection, site not specified Status: Acute Assessment and Plan: The patient had been on Keflex outpatient, prescribed 11/27 outpatient. Urine culture with enterococcus species pansensitive. blood cultures negative to date. 11/29 Stop Rocephin d/t urine culture results. No antibiotic allergies noted. Avoid macrobid d/t CKD. Start amoxicillin 500 mg PO Q8 hours x 7 days. WBC 11.4 today 11/29. WBC 13, clinically feels improved and afebrile. Monitor for now. (3) Chronic anemia: Code(s): D64.9 - Anemia, unspecified Status: Acute Assessment and Plan: H/H 10/31%. MCV elevated. Check stool for occult blood Hgb stable 10 since 11/27. Hgb 9.6 on 11/30 B12 747 and normal, folate 11.8 and normal serum iron low 36, saturation 14%, TIBC low 258, transferrin 177. Reticulocyte count 0.05 low, immature retic 21.7% Ferritin 498 and elevated but may be elevated secondary to inflammation given it is and acute phase reactant. Likely anemia of chronic disease from CKD and multiple medical comorbidities. (4) Chronic kidney disease: Code(s): N18.9 - Chronic kidney disease, unspecified Status: Chronic Assessment and Plan: Likely acute on chronic exacerbation. BUN 97, creatinine 2.8 and GFR 22. Unknown baseline. Hold diuretics. Trend BMP. Slowly trending down. Given 250 mL NS bolus x1 on 11/29 No overt hypervolemia and +orthostatics suggests hypovolemia and some component of prerenal azotemia Monitor I/O. 11/30 renal function unchanged from 11/29 (5) COPD (chronic obstructive pulmonary disease): Qualifiers: COPD type: unspecified COPD Qualified Code(s): J44.9 - Chronic obstructive pulmonary disease, unspecified Code(s): J44.9 - Chronic obstructive pulmonary disease, unspecified Status: Chronic Assessment and Plan: Not in acute exacerbation. 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 A1c 9.1% on 11/29. 11/28 A1c 5.1% but I suspect this is a lab error as he reports blood sugars run in the low 200s and current blood sugars 250-300s. Continue Accu-Cheks AC and HS with sliding scale insulin. Fasting glucose >200 for the past 48 hours. Increase lantus 30 units at HS. Given HS snack to prevent overnight hypoglycemia.
[2022-11-30 17:18] LABS: Glucose Point of Care 149 mg/dl (65-105)
[2022-11-30] MEDS: INSULIN GLARGINE (*BKC) 100 UNITS/ML 30 UNITS SUB-Q (17:50)
[2022-11-30] MEDS: rOPINIRole HCL 0.5 MG TABLET PO (20:24)
[2022-11-30 20:30] LABS: Glucose Point of Care 153 mg/dl (65-105)
[2022-11-30 21:10] LABS: Glucose Point of Care 139 mg/dl (65-105)
[2022-12-01] VITALS (9 sets, daily range): BP systolic 93–184; BP diastolic 47–69; PULSE 59–72; RESP 18; TEMP 36.4–36.6; O2SAT 94–96
[2022-12-01] MEDS: MELATONIN 5 MG TABLET PO (00:22)
[2022-12-01] MEDS: AMOXICILLIN 500 MG CAPSULE PO ×2 (05:51→14:27)
[2022-12-01 06:42] LABS: Basophils Absolute Auto 0.1 K/mm3 (0.0-0.1); Basophils Percent Auto 1.3 % (0.2-1.2); Eosinophils Absolute Auto 1.3 K/mm3 (0-0.3); Eosinophils Percent Auto 13.3 % (0-4.4); Hematocrit 28.5 % (42.0-52.0); Hemoglobin 9.5 g/dL (14.0-18.0); Immature Granulocyte Absolute 0.03 K/mm3 (0.00-0.031); Immature Granulocyte Percent A 0.3 % (0-0.5); Lymphocytes Absolute Auto 1.46 K/mm3 (0.9-3.2); Lymphocytes Percent Auto 14.8 % (18.3-44.2); Mean Corpuscular HGB Conc 33.3 g/dl (32-36); Mean Corpuscular Hemoglobin 33.3 pg (26-34); Mean Platelet Volume 10.2 fl (7.4-10.4); Monocytes Absolute Auto 0.8 K/mm3 (0.1-0.6); Monocytes Percent Auto 8.1 % (2.6-8.5); Neutrophils Absolute Auto 6.1 K/mm3 (1.3-6.7); Neutrophils Percent Auto 62.2 % (45.5-73.1); Platelet Count Result 396 k/mm3 (150-375); Red Blood Count 2.85 M/mm3 (4.6-6.20); Red Cell Distribution Width 17.7 % (11.5-14.5); White Blood Count 9.9 K/mm3 (4.5-10.0)
[2022-12-01 06:56] LABS: Alanine Aminotransferase 32 U/L (6-50); Albumin Level 3.5 g/dL (3.5-5.1); Alkaline Phosphatase 90 U/L (38-126); Anion Gap 4 mmol/L (8-16); Aspartate Amino Transferase 35 U/L (17-59); Bilirubin,Total 0.6 mg/dL (0.2-1.3); Blood Urea Nitrogen 44 mg/dL (9-20); Calcium 8.3 mg/dL (8.4-10.2); Carbon Dioxide 24 mmol/L (22-30); Chloride 107 mmol/L (98-107); Estimated CRCL calculation 41 ml/min; Estimated Glomerular Filt Rate 42; Glucose 163 mg/dL (65-110); Potassium 4.7 mmol/L (3.4-5.0); Sodium 135 mmol/L (137-145)
[2022-12-01 08:32] LABS: Glucose Point of Care 169 mg/dl (65-105)
[2022-12-01] MEDS: ASPIRIN 81 MG CHEWABLE TABLET PO (08:43)
[2022-12-01] MEDS: GABAPENTIN 100 MG CAPSULE PO ×2 (08:44→17:14)
[2022-12-01] MEDS: PANTOPRAZOLE 40 MG TABLET PO (08:44)
[2022-12-01] MEDS: buPROPion HCL 75 MG TABLET PO (08:44)
[2022-12-01] MEDS: SERTRALINE HCL 25 MG TABLET PO (08:44)
[2022-12-01] MEDS: INSULIN ASPART (*BKC) 100 UNITS/ML 8 UNITS SUB-Q ×3 (08:46→17:15)
[2022-12-01] MEDS: LOSARTAN POTASSIUM 50 MG TABLET PO (09:47)
[2022-12-01] MEDS: carvediloL 25 MG TABLET PO (09:50)
[2022-12-01 12:18] LABS: Glucose Point of Care 178 mg/dl (65-105)
--- NOTE | 2022-12-01 14:21 | P.DS_ITS ---
DS: Admitting Diagnosis Discharge Date 12/01/2022 Admitting Diagnosis Orthostatic hypotension Acute UTI Chronic anemia Chronic kidney disease COPD (chronic obstructive pulmonary disease) Type 2 diabetes mellitus without complications Diastolic congestive heart failure Hypertension Obstructive sleep apnea Polyneuropathy, unspecified DS: Discharge Diagnosis Discharge Diagnosis (1) Orthostatic hypotension: Code(s): I95.1 - Orthostatic hypotension Status: Acute Assessment and Plan: Patient presented with c/o dizziness, especially when he stands up. +orthostatic hypotension. patient recently diagnosed with CHF and started on spironolactone, furosemide and chlorthalidone. * Held diuretics. * CT of the head which shows no acute intracranial abnormality. Chronic age- related findings. * Othostatic vitals positive. Initially conservative with fluids due to recent CHF diagnosis. * 11/29 Orthostatic vitals still positive- BP 140/60 HR 61 lying, BP 94/47 HR 70 sitting, and BP 97/49 HR 71 sitting. Given slow 250 mL bolus x1 and repeat orthostatic vitals improved.? * bilateral knee RODRÍGUEZ hose added. * H&H monitored and stable stable- unlikely secondary to acute blood loss. Patient denies any dark stools or any active bleeding. He is on an aspirin but not any anticoagulations. * Likely secondary to dehydration. * 11/30 Orthostatic vitals- 170/61 HR 68 lying, 113/68 HR 72 sitting, 103/47 HR 71 standing. Give 1L NS fluids x1 @70 mL/hour. Continue to hold diuretics. * 12/01 SBP 168-170s. resumed losartan at half dose. Afternoon orthostatics positive- SBP 160s to 93 standing. Dizziness improved however. resumed coreg 25 mg PO BID. Stop diuretics. Check BP at home and take readings to cardiology and PCP follow up. (2) Acute UTI: Code(s): N39.0 - Urinary tract infection, site not specified Status: Acute Assessment and Plan: The patient had been on Keflex outpatient, prescribed 11/27 outpatient. * Urine culture with enterococcus species pansensitive. * blood cultures negative to date. * 11/29 Stopped Rocephin d/t urine culture results. No antibiotic allergies noted. Avoid macrobid d/t CKD. Pt able to take PO, started amoxicillin 500 mg PO Q8 hours x 7 days (11/29-12/05). * WBC 11.4 today 11/29. * WBC 13, clinically feels improved and afebrile. Monitor for now. No urinary symptoms. (3) Chronic anemia: Code(s): D64.9 - Anemia, unspecified Status: Acute Assessment and Plan: H/H 10/31%. MCV elevated. * Check stool for occult blood * Hgb stable 10 since 11/27. Hgb 9.6 on 11/30 * B12 747 and normal, folate 11.8 and normal * serum iron low 36, saturation 14%, TIBC low 258, transferrin 177. * Reticulocyte count 0.05 low, immature retic 21.7% * Ferritin 498 and elevated but may be elevated secondary to inflammation given it is and acute phase reactant. * Likely anemia of chronic disease from CKD and multiple medical comorbidities. (4) Chronic kidney disease: Qualifiers: Chronic kidney disease stage: stage 3 (moderate) Chronic kidney disease stage 3 subtype: stage 3b (GFR 30-44) Qualified Code(s): N18.32 - Chronic kidney disease, stage 3b Code(s): N18.9 - Chronic kidney disease, unspecified Status: Chronic Assessment and Plan: Likely acute on chronic exacerbation. BUN 97, creatinine 2.8 and GFR 22. Unknown baseline. * Hold diuretics. * Trend BMP. Slowly trending down. * Given 250 mL NS bolus x1 on 11/29 * No overt hypervolemia and +orthostatics suggests hypovolemia and some
--- NOTE | 2022-12-01 14:21 | PM.DS ---
DS: Admitting Diagnosis Discharge Date 12/01/2022 Admitting Diagnosis Orthostatic hypotension Acute UTI Chronic anemia Chronic kidney disease COPD (chronic obstructive pulmonary disease) Type 2 diabetes mellitus without complications Diastolic congestive heart failure Hypertension Obstructive sleep apnea Polyneuropathy, unspecified DS: Discharge Diagnosis Discharge Diagnosis (1) Orthostatic hypotension: Code(s): I95.1 - Orthostatic hypotension Status: Acute Assessment and Plan: Patient presented with c/o dizziness, especially when he stands up. +orthostatic hypotension. patient recently diagnosed with CHF and started on spironolactone, furosemide and chlorthalidone. Held diuretics. CT of the head which shows no acute intracranial abnormality. Chronic age-related findings. Othostatic vitals positive. Initially conservative with fluids due to recent CHF diagnosis. 11/29 Orthostatic vitals still positive- BP 140/60 HR 61 lying, BP 94/47 HR 70 sitting, and BP 97/49 HR 71 sitting. Given slow 250 mL bolus x1 and repeat orthostatic vitals improved.? bilateral knee RODRÍGUEZ hose added. H&H monitored and stable stable- unlikely secondary to acute blood loss. Patient denies any dark stools or any active bleeding. He is on an aspirin but not any anticoagulations. Likely secondary to dehydration. 11/30 Orthostatic vitals- 170/61 HR 68 lying, 113/68 HR 72 sitting, 103/47 HR 71 standing. Give 1L NS fluids x1 @70 mL/hour. Continue to hold diuretics. 12/01 SBP 168-170s. resumed losartan at half dose. Afternoon orthostatics positive- SBP 160s to 93 standing. Dizziness improved however. resumed coreg 25 mg PO BID. Stop diuretics. Check BP at home and take readings to cardiology and PCP follow up. (2) Acute UTI: Code(s): N39.0 - Urinary tract infection, site not specified Status: Acute Assessment and Plan: The patient had been on Keflex outpatient, prescribed 11/27 outpatient. Urine culture with enterococcus species pansensitive. blood cultures negative to date. 11/29 Stopped Rocephin d/t urine culture results. No antibiotic allergies noted. Avoid macrobid d/t CKD. Pt able to take PO, started amoxicillin 500 mg PO Q8 hours x 7 days (11/29-12/05). WBC 11.4 today 11/29. WBC 13, clinically feels improved and afebrile. Monitor for now. No urinary symptoms. (3) Chronic anemia: Code(s): D64.9 - Anemia, unspecified Status: Acute Assessment and Plan: H/H 10/31%. MCV elevated. Check stool for occult blood Hgb stable 10 since 11/27. Hgb 9.6 on 11/30 B12 747 and normal, folate 11.8 and normal serum iron low 36, saturation 14%, TIBC low 258, transferrin 177. Reticulocyte count 0.05 low, immature retic 21.7% Ferritin 498 and elevated but may be elevated secondary to inflammation given it is and acute phase reactant. Likely anemia of chronic disease from CKD and multiple medical comorbidities. (4) Chronic kidney disease: Qualifiers: Chronic kidney disease stage: stage 3 (moderate) Chronic kidney disease stage 3 subtype: stage 3b (GFR 30-44) Qualified Code(s): N18.32 - Chronic kidney disease, stage 3b Code(s): N18.9 - Chronic kidney disease, unspecified Status: Chronic Assessment and Plan: Likely acute on chronic exacerbation. BUN 97, creatinine 2.8 and GFR 22. Unknown baseline. Hold diuretics. Trend BMP. Slowly trending down. Given 250 mL NS bolus x1 on 11/29 No overt hypervolemia and +orthostatics suggests hypovolemia and some component of prerenal azotemia Monitor I/O. 11/30 renal function unchanged from 11/29 (5) COPD (chronic obstructive pulmonary disease): Qualifiers: COPD type: unspecified COPD Qualified Code(s): J44.9 - Chronic obstructive pulmonary disease, unspecified Code(s): J44.9 - Chronic obstructive pulmonary disease, unspecified Status: Chronic Assessment and Plan: Not in acute ex
[2022-12-01] MEDS: INSULIN GLARGINE (*BKC) 100 UNITS/ML 30 UNITS SUB-Q (17:15)
[2022-12-01 17:38] LABS: Glucose Point of Care 141 mg/dl (65-105)
== END 2022-12-01 18:15 | disposition home health service (06) | DRG 312 ==
LOC: ANHED 11:23 → ANH2MED 15:50
PROVIDERS: Internal Medicine Critical Care Medicine; Nurse Practitioner; Admitting Provider Internal Medicine; Emergency Provider Emergency Medicine; PCP Hospitalist; Visit Provider Nurse Practitioner Family
DX: I95.1 Orthostatic hypotension (principal); I13.0 Hypertensive heart and chronic kidney disease with heart failure and stage 1 through stage 4 chronic kidney disease, or unspecified chronic kidney disease; I50.32 Chronic diastolic (congestive) heart failure; D63.1 Anemia in chronic kidney disease; N18.9 Chronic kidney disease, unspecified; J44.9 Chronic obstructive pulmonary disease, unspecified; E11.65 Type 2 diabetes mellitus with hyperglycemia; E11.22 Type 2 diabetes mellitus with diabetic chronic kidney disease; E11.42 Type 2 diabetes mellitus with diabetic polyneuropathy; F32.A Depression, unspecified; W18.30XA Fall on same level, unspecified, initial encounter; M19.90 Unspecified osteoarthritis, unspecified site; G47.33 Obstructive sleep apnea (adult) (pediatric); Z96.659 Presence of unspecified artificial knee joint; Z87.891 Personal history of nicotine dependence; Z90.49 Acquired absence of other specified parts of digestive tract
CPT/HCPCS: 36415; 70450; 71046; 80048; 80053; 81001; 82607; 82728; 82746; 82948; 83036; 83540; 83550; 83605; 83735; 83880; 84100; 84443; 84466; 84484; 85014; 85018; 85025; 85027; 85046; 85610; 85730; 87086; 87147; 87181; 87186; 93005; 94640; 96360; 96361; 96365; 97161; 97165; 97530; 99284; 99285; A9270; G0378; J0696; J1815; J3475; J7030; J7040; J7120

== ENCOUNTER 2022-12-28 14:15 | Emergency (ER) | payer MEDICARE, SELFPAY ==
[2022-12-28 14:16] VITALS: BP 185/59; PULSE 58; RESP 18; TEMP 36.4; O2SAT 98
--- NOTE | 2022-12-28 14:31 | ECG_ITS ---
Measurements Intervals [place] Rate: 56 P: 81 LA: 162 QRS: -1 QRSD: 93 T: 25 QT: 419 QTc: 407 Interpretive Statements SINUS BRADYCARDIA BASELINE ARTIFACT- I, II, III, AVR, AVL, AVF BORDERLINE ECG COMPARED TO ECG 11/27/2022 10:41:32 SINUS BRADYCARDIA NOW PRESENT Electronically Signed On 12-28-2022 14:44:48 CDT by Niko Reilly D.O.
--- NOTE | 2022-12-28 14:34 | ED.FALL ---
HPI - Fall General Chief Complaint: Fall Stated Complaint: fall/dizzy Time Seen by Provider: 12/28/22 14:18 History of Present Illness HPI Narrative: 77-year-old male here for evaluation of lightheadedness today. Patient states he went from seated to standing and he felt lightheaded and his knees buckled. No head injury or LOC. Patient has a history of orthostatic hypotension and that it was thought to be due to overdiuresis. He states he has not been eating or drinking his normal amount. Related Data Home Medications Medication Instructions Recorded Confirmed carvedilol 12.5 mg tablet (Coreg) 25 mg PO Q12HR 11/27/22 11/27/22 gabapentin 100 mg capsule 100 mg PO BID 11/27/22 11/27/22 Allergies Allergy/AdvReac Type Severity Reaction Status Date / Time LAUREN Inhibitors Allergy Cough Verified 11/27/22 10:53 enalapril Allergy Cough Verified 11/27/22 10:53 lisinopril Allergy Cough Verified 11/27/22 10:53 quinapril Allergy Cough Verified 11/27/22 10:53 Review of Systems Review of Systems: Gen.: Reports lightheadedness Eyes: Denies eye pain or visual change ENT: Denies congestion Respiratory: Denies shortness of breath or cough CV: Denies chest pain or palpitations GI: Denies abdominal pain nausea, emesis or diarrhea denies burning, urgency, frequency or hematuria Musculoskeletal: Denies back pain or muscle pain Neuro: Denies numbness, tingling, weakness or focal weakness Skin: Denies rash Except as documented, all other systems reviewed and negative [facility] Past Medical History Medical History Arthritis CHF (congestive heart failure), NYHA class I COPD (chronic obstructive pulmonary disease) Depression Diabetes Surgical History Surgical History H/O foot surgery History of total knee replacement (TKR) Hx of cholecystectomy S/P insertion of penile implant Family History Family History Father Cancer Diabetes mellitus Mother Hyperlipidemia Hypertension Heart attack Sibling Hx of CABG Colon cancer Social History Social History (Updated 11/27/22 @ 20:30 by DARYL Shaw Social History: The patient lives with his . He is retired from [employer]. 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 Code status full code Smoking packs per day: 2 Smoking cigarettes per day: 40.0 Smoking status: Former smoker Tobacco type: cigarettes Second hand tobacco smoke exposure: No Alcohol intake: former Alcohol use details: wine every now and then Substance use: never Substance use type: does not use Lack of Transportation: No Lack of Food: Never True Current Housing: I Have Housing Concerned About Future Housing: No Difficulty Paying Gas/Electric Bills: No Difficulty Paying for Meds: No Currently Unemployed: No Education: High School Diploma/GED Difficulty w/ Childcare or Family Care: No Living arrangements: with family Additional living arrangements comments: - lottie Occupation/Education: retired 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 Head: Normocephalic and atraumatic. EYES: PERRLA/EOMI, conjunctivae clear NOSE: No nasal drainage EARS: External ear normal in appearance THROAT: Oropharynx is clear. Mucous membranes are moist. NECK: Supple. No adenopathy, no masses. RESPIRATORY: Airway patent, respirations nonlabored. Clear to auscultation bilaterally, no rales, rhonchi, wheezing. CARDIOVASCULAR: Regular rate and rhythm without murmurs, rubs, or gallops. ABDOMINAL: Normoactive malcolm
[2022-12-28 14:53] LABS: Basophils Absolute Auto 0.1 K/mm3 (0.0-0.1); Basophils Percent Auto 1.4 % (0.2-1.2); Eosinophils Absolute Auto 0.4 K/mm3 (0-0.3); Eosinophils Percent Auto 5.7 % (0-4.4); Hemoglobin 9.5 g/dL (14.0-18.0); Immature Granulocyte Absolute 0.03 K/mm3 (0.00-0.031); Immature Granulocyte Percent A 0.4 % (0-0.5); Lymphocytes Absolute Auto 1.08 K/mm3 (0.9-3.2); Lymphocytes Percent Auto 14.6 % (18.3-44.2); Mean Corpuscular HGB Conc 32.8 g/dl (32-36); Mean Corpuscular Hemoglobin 35.2 pg (26-34); Mean Corpuscular Volume 107.4 fl (80-100); Mean Platelet Volume 9.8 fl (7.4-10.4); Monocytes Absolute Auto 0.6 K/mm3 (0.1-0.6); Monocytes Percent Auto 7.8 % (2.6-8.5); Neutrophils Absolute Auto 5.2 K/mm3 (1.3-6.7); Neutrophils Percent Auto 70.1 % (45.5-73.1); Platelet Count Result 379 k/mm3 (150-375); Red Cell Distribution Width 17.5 % (11.5-14.5); White Blood Count 7.4 K/mm3 (4.5-10.0)
[2022-12-28 15:02] LABS: Alanine Aminotransferase 28 U/L (6-50); Albumin Level 3.3 g/dL (3.5-5.1); Alkaline Phosphatase 78 U/L (38-126); Anion Gap 5 mmol/L (8-16); Aspartate Amino Transferase 27 U/L (17-59); Bilirubin,Total 0.3 mg/dL (0.2-1.3); Blood Urea Nitrogen 43 mg/dL (9-20); Calcium 8.1 mg/dL (8.4-10.2); Carbon Dioxide 28 mmol/L (22-30); Chloride 109 mmol/L (98-107); Estimated CRCL calculation 29 ml/min; Estimated Glomerular Filt Rate 33; Glucose 107 mg/dL (65-110); Potassium 4.6 mmol/L (3.4-5.0); Sodium 142 mmol/L (137-145)
[2022-12-28 15:29] VITALS: BP 192/72; PULSE 65
[2022-12-28 15:31] VITALS: BP 186/134; PULSE 66
[2022-12-28 15:33] VITALS: BP 133/100; PULSE 65
[2022-12-28] MEDS: SODIUM CHLORIDE 0.9% IV 500 ML 999 ML IV CONT (15:45)
[2022-12-28] MEDS: ACETAMINOPHEN 325 MG TABLET 650 MG PO (15:53)
[2022-12-28 16:30] VITALS: BP 190/97; PULSE 65; RESP 16; O2SAT 98
[2022-12-28 17:45] VITALS: BP 180/99; PULSE 69; RESP 16; O2SAT 98
== END 2022-12-28 17:45 | disposition home or self-care (01) ==
PROVIDERS: Emergency Provider Physician Assistant; PCP Hospitalist
DX: I95.1 Orthostatic hypotension (principal); I50.9 Heart failure, unspecified; J44.9 Chronic obstructive pulmonary disease, unspecified; E11.9 Type 2 diabetes mellitus without complications; M19.90 Unspecified osteoarthritis, unspecified site; Z96.659 Presence of unspecified artificial knee joint; Z90.49 Acquired absence of other specified parts of digestive tract; Z87.891 Personal history of nicotine dependence; Z79.82 Long term (current) use of aspirin; Z79.4 Long term (current) use of insulin; R00.1 Bradycardia, unspecified
CPT/HCPCS: 36415; 80053; 85025; 93005; 96360; 99283; A9270; J7040

== ENCOUNTER 2023-01-13 04:07 | Emergency (ER) | payer MEDICARE, SELFPAY ==
[2023-01-13] VITALS (7 sets, daily range): BP systolic 157–206; BP diastolic 71–88; PULSE 62–72; RESP 15–20; TEMP 37; O2SAT 94–100
--- NOTE | ~2023-01-13 | CT_ITS ---
EXAMINATION: CT brain wo con DATE: 01/13/2023 05:22 INDICATION: Head injury. TECHNIQUE: Computed tomography (CT) of the head was performed without intravenous contrast. The mA wa s adjusted according to patient size. Iterative reconstruction technique was employed. The dose-lengt h product was 681.00 mGy-cm. COMPARISON: Head CT 11/27/2022 FINDINGS: There is diffuse brain volume loss. There are scattered areas of low attenuation in the cer ebral white matter, which is within normal limits for the patient's age. There is no intracranial hem orrhage, acute infarction, or abnormal intracranial mass lesion. The ventricles are normal in size. T here are likely changes of ocular lens replacement surgeries. There is mild mucosal thickening in the ethmoid sinuses. There is an old fracture deformity of left nasal bone. The mastoid air cells are no rmal. There is mild right frontal scalp soft tissue swelling. IMPRESSION: 1. Normal aging brain. Reviewed, dictated and finalized at location E. IMPRESSION: 1. Normal aging brain.
--- NOTE | ~2023-01-13 | XR_ITS ---
XR chest 1V portable DATE: 01/13/2023 06:12 INDICATION: Weakness. Frequent falls. TECHNIQUE: Portable upright AP chest on 01/13/2023 at 0602 hours COMPARISON: November 27, 2022 AP chest FINDINGS: Normal heart size. No hilar or mediastinal enlargement. No pulmonary infiltrate or consolid ation, pleural effusion or pulmonary vascular congestion or pneumothorax. Dextroscoliosis and degenerative spurring of the thoracic spine. IMPRESSION: No active cardiopulmonary disease Reviewed, dictated and finalized at location A.
--- NOTE | ~2023-01-13 | CT_ITS ---
EXAMINATION: CT cervical spine wo con DATE: 01/13/2023 05:26 INDICATION: Head injury. TECHNIQUE: Computed tomography (CT) of the cervical spine was performed without intravenous contrast. Automated exposure control and iterative reconstruction technique were employed. The dose-length pro duct was 515.73 mGy-cm. COMPARISON: None FINDINGS: Bone alignment is normal. Vertebral body heights are normal. There is moderately decreased disc height at C5-C6 and mildly decreased disc height at C6-C7. The following disc levels are specifi brenda discussed: C2-C3: There is no uncovertebral joint osteoarthritis. There is severe bilateral facet joint osteoart hritis. There is no neural foraminal stenosis. There is no central canal stenosis. C3-C4: There is severe right and mild left uncovertebral joint osteoarthritis. There is severe right and moderate left facet joint osteoarthritis. There is moderate right and mild left neural foraminal stenosis. There is mild central canal stenosis. C4-C5: There is mild left uncovertebral joint osteoarthritis. There is moderate right and severe left facet joint osteoarthritis. There is mild left neural foraminal stenosis. There is mild central steven l stenosis. C5-C6: There is mild bilateral uncovertebral joint osteoarthritis. There is mild bilateral facet join t osteoarthritis. There is no neural foraminal stenosis. There is mild central canal stenosis. C6-C7: There is moderate left uncovertebral joint osteoarthritis. There is mild bilateral facet joint osteoarthritis. There is mild left neural foraminal stenosis. There is mild central canal stenosis. C7-T1: There is mild right uncovertebral joint osteoarthritis. There is mild bilateral facet joint os teoarthritis. There is no neural foraminal stenosis. There is no central canal stenosis. IMPRESSION: 1. No fracture. 2. Moderate cervical spondylosis. Reviewed, dictated and finalized at location E.
--- NOTE | ~2023-01-13 | XR_ITS ---
XR hip RT min 3V w AP pelvis DATE: 01/13/2023 06:12 INDICATION: Right hip pain following fall TECHNIQUE: AP pelvis. AP and lateral views of right hip COMPARISON: None FINDINGS: An extremely subtle nondisplaced right subcapital femoral neck fracture is strongly suggest ed. CT of the right hip is recommended. Dr. Regalado telephoned Dr. Bruner, emergency room physician, [facility] h the findings and 0848 hours on . Normal alignment at the pubic symphysis and sacroiliac joints. No pelvic bone fracture is noted. There is mild left and moderate right hip osteoarthritis. Bilateral penile or pleural implants are noted. IMPRESSION: Very subtle nondisplaced right subcapital femoral neck fracture is strongly suggested; CT right hip is recommended to confirm. The emergency room physician was notified. Reviewed, dictated and finalized at location A.
--- NOTE | 2023-01-13 05:00 | ECG_ITS ---
Measurements Intervals [place] Rate: 64 P: 44 DE: 174 QRS: -3 QRSD: 100 T: 22 QT: 424 QTc: 438 Interpretive Statements SINUS RHYTHM WITH OCCASIONAL SUPRAVENTRICULAR PREMATURE COMPLEXES COMPARED TO ECG 12/28/2022 14:21:29 SINUS RHYTHM NOW PRESENT Electronically Signed On 01-13-2023 9:42:07 CDT by Clarisa Reese M.D.
[2023-01-13] MEDS: SODIUM CHLORIDE 0.9% IV 500 ML 999 ML IV CONT (05:41)
[2023-01-13] MEDS: ONDANSETRON INJ 4 MG/2 ML VIAL IV PUSH (05:45)
[2023-01-13] MEDS: TETANUS,DIPHTHERIA,AC PERTUSSIS ADULT (0.5 ML) BOOSTRIX IM (05:45)
[2023-01-13 05:51] LABS: Basophils Absolute Auto 0.1 K/mm3 (0.0-0.1); Basophils Percent Auto 1.2 % (0.2-1.2); Eosinophils Absolute Auto 0.6 K/mm3 (0-0.3); Eosinophils Percent Auto 6.1 % (0-4.4); Hematocrit 29.2 % (42.0-52.0); Hemoglobin 9.5 g/dL (14.0-18.0); Immature Granulocyte Absolute 0.04 K/mm3 (0.00-0.031); Immature Granulocyte Percent A 0.4 % (0-0.5); Lymphocytes Absolute Auto 1.51 K/mm3 (0.9-3.2); Lymphocytes Percent Auto 15.7 % (18.3-44.2); Mean Corpuscular HGB Conc 32.5 g/dl (32-36); Mean Corpuscular Hemoglobin 34.7 pg (26-34); Mean Corpuscular Volume 106.6 fl (80-100); Mean Platelet Volume 9.9 fl (7.4-10.4); Monocytes Absolute Auto 0.6 K/mm3 (0.1-0.6); Monocytes Percent Auto 6.5 % (2.6-8.5); Neutrophils Absolute Auto 6.7 K/mm3 (1.3-6.7); Neutrophils Percent Auto 70.1 % (45.5-73.1); Platelet Count Result 365 k/mm3 (150-375); Red Blood Count 2.74 M/mm3 (4.6-6.20); Red Cell Distribution Width 15.7 % (11.5-14.5); White Blood Count 9.6 K/mm3 (4.5-10.0)
[2023-01-13 06:03] LABS: Alanine Aminotransferase 25 U/L (6-50); Albumin Level 3.3 g/dL (3.5-5.1); Alkaline Phosphatase 82 U/L (38-126); Anion Gap 5 mmol/L (8-16); Aspartate Amino Transferase 28 U/L (17-59); Bilirubin,Total 0.4 mg/dL (0.2-1.3); Blood Urea Nitrogen 39 mg/dL (9-20); Calcium 7.7 mg/dL (8.4-10.2); Carbon Dioxide 29 mmol/L (22-30); Chloride 105 mmol/L (98-107); Estimated CRCL calculation 31 ml/min; Estimated Glomerular Filt Rate 31; Glucose 94 mg/dL (65-110); Magnesium 1.6 mg/dL (1.6-2.3); Potassium 4.1 mmol/L (3.4-5.0); Sodium 139 mmol/L (137-145)
[2023-01-13 06:09] LABS: Add Urine Microscopic? YES; Appearance Urine Clear (Clear); Bacteria Urine None Seen /hpf; Bilirubin Urine Negative (Negative); Blood Urine 1+ (Negative); Color Urine Yellow (Yellow); Glucose Urine UA 1+ mg/dL (Negative); Ketones Urine Negative (Negative); Leukocyte Esterase Ur Negative LEU/UL (Negative); Need Manual Microscopic Reviewed; Nitrate Urine Negative (Negative); Protein Urine 4+ mg/dL (Negative); RBC Urine 0-2 /hpf (0-2); Specific Grav Ur 1.016 (1.001-1.035); Squamous Epithelial Cell Urine None seen /hpf (Few); Urobilinogen Urine 0.2 mg/dL (<2.0); WBC Urine 0-5 /hpf; pH Urine 5.5 (5.0-9.0)
[2023-01-13 06:11] LABS: NT Pro B Type Natriuretic Pept 5830 pg/mL (19.9-100)
[2023-01-13 06:14] LABS: Troponin I 0.019 ng/mL (0.000-0.034)
--- NOTE | 2023-01-13 06:17 | ED.GENADULT ---
HPI - General Adult General Chief complaint: Fall Stated complaint: fall Time Seen by Provider: 01/13/23 04:53 History of Present Illness HPI narrative: Patient 77-year-old gentleman presents emergency department with chief complaint of falls patient reports that he has had several falls today reports that he lost his balance and fell to the ground. The patient reports he struck the right side of his head and has an abrasion on his forehead patient states that he also has pain in his right hip area the patient reports no loss of consciousness reports that he is not on any blood thinners the patient reports he has a prior history of congestive heart failure but denies chest pain or shortness of breath patient did report that after hitting his head he started to have nausea and vomiting and generally lays flat he starts to vomit. Related Data Home Medications Medication Instructions Recorded Confirmed carvedilol 12.5 mg tablet (Coreg) 25 mg PO Q12HR 11/27/22 11/27/22 gabapentin 100 mg capsule 100 mg PO BID 11/27/22 11/27/22 Allergies Allergy/AdvReac Type Severity Reaction Status Date / Time LAUREN Inhibitors Allergy Cough Verified 11/27/22 10:53 enalapril Allergy Cough Verified 11/27/22 10:53 lisinopril Allergy Cough Verified 11/27/22 10:53 quinapril Allergy Cough Verified 11/27/22 10:53 Review of Systems Review of Systems: A 10 system review of systems was completed on the patient and is negative except for what is stated in the HPI. Nursing and ancillary documentation was reviewed. [facility] Past Medical History Medical History Arthritis CHF (congestive heart failure), NYHA class I COPD (chronic obstructive pulmonary disease) Depression Diabetes Surgical History Surgical History H/O foot surgery History of total knee replacement (TKR) Hx of cholecystectomy S/P insertion of penile implant Family History Family History Father Cancer Diabetes mellitus Mother Hyperlipidemia Hypertension Heart attack Sibling Hx of CABG Colon cancer Social History Social History Social History: The patient lives with his . He is retired from [employer]. His Bro is a durable power bankruptcy attorney for healthcare. Code status full code Smoking packs per day: 2 Smoking cigarettes per day: 40.0 Smoking status: Former smoker Tobacco type: cigarettes Second hand tobacco smoke exposure: No Alcohol intake: former Alcohol use details: wine every now and then Substance use: never Substance use type: does not use Lack of Transportation: No Lack of Food: Never True Current Housing: I Have Housing Concerned About Future Housing: No Difficulty Paying Gas/Electric Bills: No Difficulty Paying for Meds: No Currently Unemployed: No Education: High School Diploma/GED Difficulty w/ Childcare or Family Care: No Living arrangements: with family Additional living arrangements comments: - bro 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 HEAD: Normocephalic, small abrasion present to the right forehead.. EYES: PERRLA and EOMI. ENT: Nares clear, no rhinorrhea or epistaxis. Mucous membranes moist. NECK: Supple. CHEST: Clear to auscultation. No respiratory distress. HEART: Regular rate and rhythm. No murmur heard. Normal peripheral pulses. ABDOMEN: Soft, nontender, nondistended, normal active bowel sounds. EXTREMITIES: Normal range of m
[2023-01-13] MEDS: MAGNESIUM SULF 1 GM/D5W 100 ML 1 GM/100 ML BAG IVPB (06:40)
[2023-01-13 06:48] LABS: Anisocytosis 1+ (NORMAL); Poikilocytosis 1+ (NORMAL); Schistocytes Rare (NORMAL)
== END 2023-01-13 08:05 | disposition home or self-care (01) ==
PROVIDERS: Emergency Provider Emergency Medicine; PCP Hospitalist
DX: S00.81XA Abrasion of other part of head, initial encounter (principal); S70.01XA Contusion of right hip, initial encounter; Z23 Encounter for immunization; R29.6 Repeated falls; I50.9 Heart failure, unspecified; J44.9 Chronic obstructive pulmonary disease, unspecified; E11.9 Type 2 diabetes mellitus without complications; Z96.659 Presence of unspecified artificial knee joint; Z87.891 Personal history of nicotine dependence; Z90.49 Acquired absence of other specified parts of digestive tract; Z79.82 Long term (current) use of aspirin; Z79.4 Long term (current) use of insulin; W18.39XA Other fall on same level, initial encounter
CPT/HCPCS: 36415; 70450; 71045; 72125; 73502; 80053; 81001; 83605; 83735; 83880; 84484; 85025; 90471; 90715; 93005; 96361; 96365; 96375; 99284; J2405; J3475; J7040

== ENCOUNTER 2023-01-13 09:26 | Inpatient (IN) | payer MEDICARE, SELFPAY ==
[2023-01-13] VITALS (10 sets, daily range): BP systolic 160–221; BP diastolic 64–88; PULSE 60–77; RESP 18–20; TEMP 36.4–36.9; O2SAT 95–97
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
--- NOTE | ~2023-01-13 | CT_ITS ---
EXAMINATION: CT brain wo con INDICATION: Headache COMPARISON: 01/13/2023 TECHNIQUE: Standard unenhanced head CT. The dose-length product (DLP) was 681.00 mGy-cm. The mA was a djusted according to patient size. Iterative reconstruction technique was employed. FINDINGS: There is no acute intraparenchymal hemorrhage. No evidence of mass lesion. No evidence of a cute infarction. There is moderate periventricular and subcortical hypodensity probably related to sm all vessel ischemic disease. There is moderate prominence of the sulci and ventricles related to cere bral atrophy. Intracranial calcified cerebral atherosclerosis is noted. There are no extra-axial jabier ections. There is no mass effect or midline shift. Changes in the globes are likely from ocular lens surgery. There is mild mucosal thickening of the paranasal sinuses. Right frontal scalp soft tissue swelling is again noted. IMPRESSION: 1. No acute intracranial abnormality. 2. Age related findings. Reviewed, dictated and finalized at location F.
--- NOTE | ~2023-01-13 | CT_ITS ---
EXAMINATION: CT cervical spine wo con DATE: 01/15/2023 17:55 INDICATION: Head injury TECHNIQUE: Computed tomography (CT) of the cervical spine was performed without intravenous contrast. The dose-length product (DLP) was 508.47 mGy-cm. Automated exposure control and iterative reconstruc tion technique were employed. COMPARISON: 01/13/2023 FINDINGS: Bone alignment is normal. The vertebral body heights are maintained. There is moderate loss of intervertebral disc space height at C5-6. The odontoid process is intact. Atlantoaxial osteoarthr itis is noted. There is multilevel moderate to severe facet joint osteoarthritis. The prevertebral so ft tissues are normal. There is multilevel mild to moderate uncovertebral joint osteoarthritis. IMPRESSION: 1. Moderate cervical spondylosis without acute findings. Reviewed, dictated and finalized at location F.
--- NOTE | 2023-01-13 10:15 | ED.FALL ---
HPI - Fall General Chief Complaint: Fall Stated Complaint: CALL BACK FOR CT Time Seen by Provider: 01/13/23 09:31 Source: patient and family Mode of arrival: wheelchair History of Present Illness HPI Narrative: This is a 77 year old male who presents for evaluation of an abnormal right hip xray. PAtient was evaluated in ER early this morning for frequent falls. He has right hip xray done to assess for right thigh pain. Patient was ambulated prior to discharge and did well. His family at bedside said patient has not had any additional issues. Patient denies having right hip pain. He has old scar to his right lateral thigh that he reports was painful. His family reports his right lateral thigh is chronically swollen so no acute issues. He also had CT Brain that was unremarkable earlier today. Radiology reviewed his hip xray this morning. Radiologist called me stating patient possibly has subtle right subcapital femoral neck fracture and they recommended patient return for CT right hip. Patient was called by ER staff and his family brought patient back in. Related Data Home Medications Medication Instructions Recorded Confirmed carvedilol 12.5 mg tablet (Coreg) 25 mg PO Q12HR 11/27/22 01/13/23 gabapentin 100 mg capsule 100 mg PO BID 11/27/22 01/13/23 insulin glargine 100 unit/mL (3 22 unit subcut QPM 01/13/23 01/13/23 mL) subcutaneous pen (Lantus Solostar U-100 Insulin) insulin lispro 100 unit/mL 10 unit subcut TIDWM 01/13/23 01/13/23 subcutaneous solution (Humalog U-100 Insulin) losartan 100 mg tablet 100 mg PO DAILY 01/13/23 01/13/23 pantoprazole 40 mg tablet,delayed 40 mg PO WEEKLY 01/13/23 01/13/23 release Allergies Allergy/AdvReac Type Severity Reaction Status Date / Time LAUREN Inhibitors Allergy Cough Verified 11/27/22 10:53 enalapril Allergy Cough Verified 11/27/22 10:53 lisinopril Allergy Cough Verified 11/27/22 10:53 quinapril Allergy Cough Verified 11/27/22 10:53 Review of Systems Constitutional: Constitutional: Denies weakness Cardiovascular: Cardiovascular: Denies syncope, Denies rapid heart rate, Denies irregular heart rhythm, Denies leg edema and Denies dyspnea Respiratory: Respiratory: Denies chest congestion, Denies hemoptysis, Denies excessive phlegm production and Denies dyspnea Gastrointestinal: Gastrointestinal: Denies abdominal pain, Denies hematochezia, Denies diarrhea and Denies vomiting Genitourinary: Genitourinary: Denies hematuria, Denies dysuria, Denies penile discharge and Denies testicular pain Musculoskeletal: Musculoskeletal: Denies joint swelling, Denies loss of height and Denies muscle weakness Neurologic: Denies syncope, Denies focal weakness and Denies weakness [facility] Past Medical History Medical History (Updated 01/13/23 @ 18:20 by Guera Bruner MD) Arthritis Chronic anemia Chronic kidney disease Chronic obstructive pulmonary disease Depression Diabetic peripheral neuropathy Diastolic congestive heart failure Hypertension Insulin dependent diabetes mellitus Obstructive sleep apnea Surgical History Surgical History (Updated 01/13/23 @ 13:53 by Ileana Campuzano PA-C) History of cholecystectomy History of foot surgery History of penile implant Family History Family History Father Cancer Diabetes mellitus Mother Hyperlipidemia Hypertension Heart attack Sibling Hx of CABG Colon cancer Social History Social History (Updated 01/13/23 @ 14:25 by Ileana Campuzano PA-C) Social History: Surrogate medical decision maker: Palmira Worthington, granddaughter. Code status: Full code. Smoking packs per day: 1 Smoking cigarettes per day: 20.0 Smoking status: Former smoker Tobacco type: cigarettes Second hand tobacco smoke exposure: No Alcohol intake: current Drinks per week: 1 Alcohol use details: Occasional glass a wine though rare. Substance use: unknown Substa
[2023-01-13 11:46] LABS: Basophils Absolute Auto 0.1 K/mm3 (0.0-0.1); Basophils Percent Auto 1.4 % (0.2-1.2); Eosinophils Absolute Auto 0.4 K/mm3 (0-0.3); Eosinophils Percent Auto 4.1 % (0-4.4); Hematocrit 28.1 % (42.0-52.0); Hemoglobin 9.2 g/dL (14.0-18.0); Immature Granulocyte Absolute 0.02 K/mm3 (0.00-0.031); Immature Granulocyte Percent A 0.2 % (0-0.5); Lymphocytes Absolute Auto 1.68 K/mm3 (0.9-3.2); Lymphocytes Percent Auto 19.3 % (18.3-44.2); Mean Corpuscular HGB Conc 32.7 g/dl (32-36); Mean Corpuscular Hemoglobin 35.2 pg (26-34); Mean Corpuscular Volume 107.7 fl (80-100); Mean Platelet Volume 9.9 fl (7.4-10.4); Monocytes Absolute Auto 0.6 K/mm3 (0.1-0.6); Monocytes Percent Auto 7.4 % (2.6-8.5); Neutrophils Absolute Auto 5.9 K/mm3 (1.3-6.7); Neutrophils Percent Auto 67.6 % (45.5-73.1); Platelet Count Result 346 k/mm3 (150-375); Red Blood Count 2.61 M/mm3 (4.6-6.20); Red Cell Distribution Width 15.9 % (11.5-14.5); White Blood Count 8.7 K/mm3 (4.5-10.0)
[2023-01-13 11:58] LABS: Alanine Aminotransferase 23 U/L (6-50); Alkaline Phosphatase 70 U/L (38-126); Anion Gap 4 mmol/L (8-16); Aspartate Amino Transferase 26 U/L (17-59); Bilirubin,Total 0.4 mg/dL (0.2-1.3); Blood Urea Nitrogen 37 mg/dL (9-20); Calcium 7.3 mg/dL (8.4-10.2); Carbon Dioxide 27 mmol/L (22-30); Chloride 106 mmol/L (98-107); Estimated CRCL calculation 31 ml/min; Estimated Glomerular Filt Rate 35; Glucose 177 mg/dL (65-110); Potassium 4.3 mmol/L (3.4-5.0); Sodium 137 mmol/L (137-145)
[2023-01-13 12:12] LABS: Anisocytosis 1+ (NORMAL); Hypochromasia 1+ (NORMAL); Platelet Estimate Adequate (Adequate); Schistocytes Rare (NORMAL)
--- NOTE | 2023-01-13 13:44 | PM.IMHP ---
H&P: HPI History of Present Illness Date/Time: 01/13/23 13:45 Chief Complaint: Fall, needs further imaging. Narrative: This is a 77-year-old male with hypertension, insulin-dependent diabetes, diastolic congestive heart failure, chronic anemia, chronic kidney disease, and other comorbidities who presented to the emergency department via private vehicle from home for further imaging after sustaining several falls yesterday. Patient provides the following history. He had several falls yesterday which he attributes to losing his balance (he has a history of orthostatic hypotension though it does not look like he had positive orthostatic vital signs in the ED yesterday). In one of the falls he landed on his right side and struck his head on the ground. CT of the head and cervical spine showed no acute findings. Hip x-ray did not show obvious evidence of fracture however on radiologist over read this morning there were concerns for possible fracture and he was asked to return for further imaging. CT of the right hip showed subtle findings which may be due to a nondisplaced acute versus chronic subcapital femoral neck fracture. MRI was recommended for definitive diagnosis and he is being admitted in this setting. At the time my evaluation he has no specific complaints aside for a mild discomfort along the right lateral thigh near where he had surgery while in the [employer]. He denies syncope, near syncope, fever, chills, sweats, chest pain, shortness of breath, nausea, vomiting, diarrhea, and dysuria. Review of Systems Review of Systems: Twelve systems were reviewed and are negative except for as per HPI. [facility] Past Medical History Medical History Arthritis Chronic anemia Chronic kidney disease Chronic obstructive pulmonary disease Depression Diabetic peripheral neuropathy Diastolic congestive heart failure Hypertension Insulin dependent diabetes mellitus Obstructive sleep apnea Surgical History Surgical History History of cholecystectomy History of foot surgery History of penile implant Family History Family History Father Cancer Diabetes mellitus Mother Hyperlipidemia Hypertension Heart attack Sibling Hx of CABG Colon cancer Social History Social History Social History: Surrogate medical decision maker: Palmira Flau, granddaughter. Code status: Full code. Smoking packs per day: 1 Smoking cigarettes per day: 20.0 Smoking status: Former smoker Tobacco type: cigarettes Second hand tobacco smoke exposure: No Alcohol intake: current Drinks per week: 1 Alcohol use details: Occasional glass a wine though rare. Substance use: unknown Substance use type: does not use Lack of Transportation: No Lack of Food: Never True Current Housing: I Have Housing Concerned About Future Housing: No Difficulty Paying Gas/Electric Bills: No Difficulty Paying for Meds: No Currently Unemployed: No Education: High School Diploma/GED Difficulty w/ Childcare or Family Care: No Living arrangements: with family Occupation/Education: retired Additional occupation/education comments: Retired from [employer]. Spiritual care concerns: No Meds Home Medications and Allergies Home Medications Medication Instructions Recorded Confirmed Type aspirin 81 mg chewable tablet 81 mg PO DAILY@0800 #30 tabs 11/22/22 01/13/23 Rx (Children's Aspirin) bupropion HCl 75 mg tablet 75 mg PO Q12HR #60 tabs 11/22/22 01/13/23 Rx calcium carbonate 500 mg-vitamin 1 tablet PO DAILY@0800 #30 tabs 11/22/22 01/13/23 Rx D3 5 mcg (200 unit) tablet (Oyster Shell Calcium-Vitamin D3) ropinirole 0.5 mg tablet 0.5 mg PO HS #30 tabs 11/22/22 01/13/23 Rx sertraline 50 mg tablet (Z
--- NOTE | 2023-01-13 14:14 | ADMGEN ---
This patient, Kenneth Powers, was admitted to Medical Room 341-01. Patient/family oriented to hospital policies and general routines including ID bracelet, bed and alarms, visiting hours, pain management, procedures, bathroom and other care routines, personal items, smoking policy, room service/diet, and visiting hours. Information on how to activate the Rapid Response Team has been discussed. Patient/Family are encouraged to report perceived risks to care and to ask questions if they do not understand what they are told or what they should do.
[2023-01-13 17:45] LABS: Glucose Point of Care 212 mg/dl (65-105)
[2023-01-13] MEDS: INSULIN ASPART (*BKC) 100 UNITS/ML SUB-Q ×2 (17:50→21:21)
[2023-01-13] MEDS: ACETAMINOPHEN 325 MG TABLET 650 MG PO (20:49)
[2023-01-13 20:58] LABS: Glucose Point of Care 230 mg/dl (65-105)
[2023-01-13] MEDS: LOSARTAN POTASSIUM 50 MG TABLET PO (21:21)
[2023-01-13] MEDS: rOPINIRole HCL 0.5 MG TABLET PO (21:21)
[2023-01-13] MEDS: INSULIN GLARGINE (*BKC) 100 UNITS/ML 22 UNITS SUB-Q (21:21)
[2023-01-13] MEDS: buPROPion HCL 75 MG TABLET PO (21:21)
[2023-01-13] MEDS: carvediloL 25 MG TABLET PO (21:21)
[2023-01-13] MEDS: hydrALAZINE HCL 20 MG/ML VIAL 5 MG IV PUSH (23:53)
[2023-01-14] VITALS (13 sets, daily range): BP systolic 101–190; BP diastolic 57–77; PULSE 51–76; RESP 16–18; TEMP 36.4–36.8; O2SAT 95–100
[2023-01-14 05:34] LABS: Basophils Absolute Auto 0.1 K/mm3 (0.0-0.1); Basophils Percent Auto 1.4 % (0.2-1.2); Eosinophils Absolute Auto 0.6 K/mm3 (0-0.3); Eosinophils Percent Auto 8.2 % (0-4.4); Hematocrit 26.3 % (42.0-52.0); Hemoglobin 8.8 g/dL (14.0-18.0); Immature Granulocyte Absolute 0.01 K/mm3 (0.00-0.031); Immature Granulocyte Percent A 0.1 % (0-0.5); Lymphocytes Absolute Auto 1.57 K/mm3 (0.9-3.2); Lymphocytes Percent Auto 20.5 % (18.3-44.2); Mean Corpuscular HGB Conc 33.5 g/dl (32-36); Mean Corpuscular Hemoglobin 36.1 pg (26-34); Mean Corpuscular Volume 107.8 fl (80-100); Mean Platelet Volume 9.8 fl (7.4-10.4); Monocytes Absolute Auto 0.7 K/mm3 (0.1-0.6); Neutrophils Absolute Auto 4.6 K/mm3 (1.3-6.7); Neutrophils Percent Auto 60.8 % (45.5-73.1); Platelet Count Result 335 k/mm3 (150-375); Red Blood Count 2.44 M/mm3 (4.6-6.20); Red Cell Distribution Width 15.8 % (11.5-14.5); White Blood Count 7.6 K/mm3 (4.5-10.0)
[2023-01-14 05:38] LABS: Alanine Aminotransferase 19 U/L (6-50); Albumin Level 2.6 g/dL (3.5-5.1); Alkaline Phosphatase 61 U/L (38-126); Anion Gap 0 mmol/L (8-16); Aspartate Amino Transferase 24 U/L (17-59); Bilirubin,Total 0.4 mg/dL (0.2-1.3); Blood Urea Nitrogen 35 mg/dL (9-20); Calcium 7.3 mg/dL (8.4-10.2); Carbon Dioxide 32 mmol/L (22-30); Chloride 106 mmol/L (98-107); Estimated CRCL calculation 28 ml/min; Estimated Glomerular Filt Rate 31; Glucose 115 mg/dL (65-110); Magnesium 1.8 mg/dL (1.6-2.3); Potassium 4.1 mmol/L (3.4-5.0); Sodium 138 mmol/L (137-145)
[2023-01-14 06:22] LABS: Hemoglobin A1C 7.9 % (<5.7)
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
--- NOTE | 2023-01-14 08:24 | PCOTNOTE ---
Awaiting further medical testing, MRI, to ensure safety and clarity of pt. injury and decision to pursue non-operative treatment. Following.
[2023-01-14 08:36] LABS: Glucose Point of Care 96 mg/dl (65-105)
[2023-01-14] MEDS: carvediloL 25 MG TABLET PO ×2 (09:03→20:20)
[2023-01-14] MEDS: GABAPENTIN 100 MG CAPSULE PO ×2 (09:03→18:32)
[2023-01-14] MEDS: SERTRALINE HCL 25 MG TABLET PO (09:03)
[2023-01-14] MEDS: ASPIRIN 81 MG CHEWABLE TABLET PO (09:03)
[2023-01-14] MEDS: buPROPion HCL 75 MG TABLET PO ×2 (09:03→20:21)
[2023-01-14] MEDS: LOSARTAN POTASSIUM 100 MG TABLET PO (09:05)
--- NOTE | 2023-01-14 10:25 | PM.IMPN ---
Progress Note: A&P Assessment and Plan (1) Recurrent falls: Code(s): R29.6 - Repeated falls Status: Acute (2) Abnormal finding on CT scan: Code(s): R93.89 - Abnormal findings on diagnostic imaging of other specified body structures Status: Acute Assessment and Plan: X-ray and CT of hip show possible fracture. Awaiting MRI. Then awaiting orthopedic plan. (3) Hypertension: Qualifiers: Hypertension type: primary hypertension Qualified Code(s): I10 - Essential (primary) hypertension Code(s): I10 - Essential (primary) hypertension Status: Chronic (4) Insulin dependent diabetes mellitus: Status: Acute (5) Chronic kidney disease: Qualifiers: Chronic kidney disease stage: stage 3 (moderate) Chronic kidney disease stage 3 subtype: stage 3b (GFR 30-44) Qualified Code(s): N18.32 - Chronic kidney disease, stage 3b Code(s): N18.9 - Chronic kidney disease, unspecified Status: Chronic (6) Chronic anemia: Code(s): D64.9 - Anemia, unspecified Status: Acute (7) Diastolic congestive heart failure: Qualifiers: Heart failure chronicity: chronic Qualified Code(s): I50.32 - Chronic diastolic (congestive) heart failure Code(s): I50.30 - Unspecified diastolic (congestive) heart failure Status: Chronic (8) Obstructive sleep apnea: Code(s): G47.33 - Obstructive sleep apnea (adult) (pediatric) Status: Acute (9) Chronic obstructive pulmonary disease: Code(s): J44.9 - Chronic obstructive pulmonary disease, unspecified Status: Acute Subjective Date/time seen: 01/14/23 10:25 Interval history: No new complaints. Exam Narrative: General: Well-developed gentleman sitting at the side of the bed in no distress. Weight: 88.7 kg. BMI: 20.1. HEENT: PERRL, EOMI. Small abrasion on the right lateral forehead from previous fall. Sclera anicteric. Oral mucosa moist. Oropharynx clear. Neck: Supple. Respiratory: Lungs are clear to auscultation bilaterally. Cardiovascular: Regular rate and rhythm with S1-S2. Gastrointestinal: Abdomen is soft, nontender, and nondistended with positive bowel sounds. Skin: Warm and dry. No rash or lesions on limited exam. Extremities: No cyanosis, clubbing, or edema. Radial and pedal pulses intact. Neurological: Alert. Cranial nerves 2-12 are grossly intact. No gross focal deficits to casual conversation. Psychiatric: Pleasant and cooperative with normal mood and affect. Judgment and insight intact. Objective Data Vital Signs Vital Signs: Vital Signs - 24 hr 01/13/23 13:06 01/13/23 14:00 01/13/23 14:29 Temperature 97.6 F Pulse Rate 64 62 63 Respiratory Rate 20 19 Blood Pressure 196/85 H 201/80 H 221/84 H Pulse Oximetry 97 97 Oxygen Delivery 01/13/23 14:33 01/13/23 14:39 01/13/23 21:21 Temperature Pulse Rate 60 67 68 Respiratory Rate Blood Pressure 178/88 H 183/68 H Pulse Oximetry Oxygen Delivery 01/13/23 20:00 01/13/23 22:00 01/14/23 01:27 Temperature 98.5 F Pulse Rate 65 Respiratory Rate 18 Blood Pressure 206/80 H 172/64 H Pulse Oximetry 97 Oxygen Delivery Room Air 01/14/23 05:37 01/13/23 20:00 01/14/23 06:10 Temperature 97.8 F Pulse Rate 58 L Respiratory Rate 18 Blood Pressure 160/64 H 160/64 H 101/71 Pulse Oximetry 96 Oxygen Delivery 01/14/23 06:10 01/14/23 07:50 01/14/23 09:03 Temperature Pulse Rate 54 L Respiratory Rate Blood Pressure 164/62 H Pulse Oximetry 95 Oxygen Delivery Room Air 01/13/23 14:35 Temperature 97.6 F Pulse Rate 62 Respiratory Rate 19 Blood Pressure 201/80 H Pulse Oximetry Oxygen Delivery Intake/Output Intake/Output: Intake & Output 01/11/23 01/12/23 01/13/23 01/14/23 23:59 23:59 23:59 23:59 Intake Total 240 240 Output Total 400 300 Balance -160 -60 Meds/Results Medications: Active Medications G
[2023-01-14 12:16] LABS: Glucose Point of Care 163 mg/dl (65-105)
[2023-01-14] MEDS: INSULIN ASPART (*BKC) 100 UNITS/ML 10 UNITS SUB-Q (12:33)
[2023-01-14 17:32] LABS: Glucose Point of Care 101 mg/dl (65-105)
[2023-01-14] MEDS: INSULIN GLARGINE (*BKC) 100 UNITS/ML 22 UNITS SUB-Q (18:32)
[2023-01-14] MEDS: rOPINIRole HCL 0.5 MG TABLET PO (20:20)
[2023-01-14 20:28] LABS: Glucose Point of Care 143 mg/dl (65-105)
[2023-01-15] VITALS (10 sets, daily range): BP systolic 132–203; BP diastolic 54–77; PULSE 56–68; RESP 14–18; TEMP 36.2–36.9; O2SAT 97–100
[2023-01-15] MEDS: hydrALAZINE HCL 20 MG/ML VIAL 10 MG IV PUSH ×2 (06:38→20:40)
[2023-01-15 08:23] LABS: Glucose Point of Care 111 mg/dl (65-105)
--- NOTE | 2023-01-15 09:16 | PC.NURSE ---
Network Specialist called pharmacy. All morning medications for patient are not on the unit at this time. Waiting for pharmacy to tube medications up.
--- NOTE | 2023-01-15 09:44 | PM.PNORT ---
Progress Note: A&P Assessment and Plan (1) Closed subcapital fracture of femur: Qualifiers: Encounter type: initial encounter Laterality: right Qualified Code(s): S72.011A - Unspecified intracapsular fracture of right femur, initial encounter for closed fracture Code(s): S72.019A - Unspecified intracapsular fracture of unspecified femur, initial encounter for closed fracture Status: Acute Assessment and Plan: Right hip pain after fall. History, physical exam and radiographs reviewed with the patient. Questionable fracture femoral neck on radiographs. CT scan equivocal. Discussed the condition, nature, etiology and course of natural history with the patient. Treatment options including surgical and nonoperative treatment were reviewed. Risks and benefits of each as well as alternatives reviewed. The patient's questions were answered. Conservative treatment ice, pain control. Awaiting MRI to evaluate right hip for fracture. WBAT, pain control, ice in the interim. Will await MRI results. Subjective Subjective Date/Time Seen: 01/15/23 09:44 Interval history: Patient doing well. Laying in bed. Awaiting MRI today. No new concerns. Review of Systems Constitutional: Constitutional: Denies fever(s) Eyes: Eyes: Denies blurry vision ENT: Reports Normal hearing present Cardiovascular: Cardiovascular: Denies chest pain and Denies dyspnea Respiratory: Respiratory: Denies dyspnea and Denies wheezing Gastrointestinal: Gastrointestinal: Denies abdominal pain Genitourinary: Genitourinary: Denies urinary urgency Musculoskeletal: Musculoskeletal: Reports as per HPI and Denies numbness Integumentary/Breasts: Skin/Breast: Denies changing lesions and Denies sores Neurologic: Reports Normal hearing present, Denies behavioral changes, Denies confusion, Denies numbness and Denies convulsions Psychiatric: Psychiatric: Denies behavioral changes, Denies confusion and Denies hallucinations Endocrine: Endocrine: Denies heat intolerance Hematologic/Lymphatic: Hematologic/Lymphatic: Denies easy bleeding Allergic/Immunologic: Allergic/Immunologic: Denies wheezing Exam Const: General: healthy appearing; No in distress or confusion Orientation/consciousness: oriented to person, oriented to place, oriented to time and No confusion HENMT: Head: normal to inspection, normocephalic and atraumatic Eyes: Conjunctivae: conjunctivae normal Sclera: sclerae normal Neck: Neck: supple and nontender Resp: Effort & Inspection: normal respiratory effort and no audible wheezes Cardio: Rate: regular rate Rhythm: regular rhythm Skin: General skin exam: no rashes or lesions noted Neuro: General: oriented to person, oriented to place, oriented to time and No confusion Extrem: Right upper extremity: normal to inspection Left upper extremity: normal to inspection Right lower extremity: hip/thigh Details: tenderness Location: of the hip Location: anteriorly, swelling ( Mild) Location: at the hip, abnormal ROM Details: pain with active ROM during Details: with ABduction and with flexion, pain with resistance to Details: to ABduction and to flexion and with range as follows ( flexion 90, external rotation 30, internal rotation 20, abduction 40) and crepitus Location: at the hip; no deformity and no unusual warmth and foot Details: normal capillary refill, toes with normal ROM, vascular exam Details: dorsalis pedis pulse present and motor-sensory exam Details: light-touch normal; no tenderness; no edema Left lower extremity: normal to inspection Other: Lateral mid right thigh previous surgical incision well healed. Fluctuance beneath incision, possible a seroma. Bruising noted at the more distal aspect of the incision. No erythema or warmth. Mild tenderness to palpation. Able to flex and extend hip. Nontender to log roll and heel strike. Able to flex and extend knee without tenderness. Psych: Affect: normal affec
[2023-01-15] MEDS: LOSARTAN POTASSIUM 100 MG TABLET PO (10:04)
[2023-01-15] MEDS: GABAPENTIN 100 MG CAPSULE PO ×2 (10:04→17:35)
[2023-01-15] MEDS: ASPIRIN 81 MG CHEWABLE TABLET PO (10:04)
[2023-01-15] MEDS: SERTRALINE HCL 25 MG TABLET PO (10:04)
[2023-01-15] MEDS: carvediloL 25 MG TABLET PO ×2 (10:06→20:34)
[2023-01-15] MEDS: buPROPion HCL 75 MG TABLET PO ×2 (10:28→20:34)
--- NOTE | 2023-01-15 10:56 | PM.IMPN ---
Progress Note: A&P Assessment and Plan (1) Recurrent falls: Code(s): R29.6 - Repeated falls Status: Acute (2) Abnormal finding on CT scan: Code(s): R93.89 - Abnormal findings on diagnostic imaging of other specified body structures Status: Acute Assessment and Plan: X-ray and CT of hip show possible fracture. Awaiting MRI. Then awaiting orthopedic plan. (3) Hypertension: Qualifiers: Hypertension type: primary hypertension Qualified Code(s): I10 - Essential (primary) hypertension Code(s): I10 - Essential (primary) hypertension Status: Chronic (4) Insulin dependent diabetes mellitus: Status: Acute (5) Chronic kidney disease: Qualifiers: Chronic kidney disease stage: stage 3 (moderate) Chronic kidney disease stage 3 subtype: stage 3b (GFR 30-44) Qualified Code(s): N18.32 - Chronic kidney disease, stage 3b Code(s): N18.9 - Chronic kidney disease, unspecified Status: Chronic (6) Chronic anemia: Code(s): D64.9 - Anemia, unspecified Status: Acute (7) Diastolic congestive heart failure: Qualifiers: Heart failure chronicity: chronic Qualified Code(s): I50.32 - Chronic diastolic (congestive) heart failure Code(s): I50.30 - Unspecified diastolic (congestive) heart failure Status: Chronic (8) Obstructive sleep apnea: Code(s): G47.33 - Obstructive sleep apnea (adult) (pediatric) Status: Acute (9) Chronic obstructive pulmonary disease: Code(s): J44.9 - Chronic obstructive pulmonary disease, unspecified Status: Acute Subjective Date/time seen: 01/15/23 10:56 Interval history: No new complaints. Exam Narrative: General: Well-developed gentleman sitting at the side of the bed in no distress. Weight: 88.7 kg. BMI: 20.1. HEENT: PERRL, EOMI. Small abrasion on the right lateral forehead from previous fall. Sclera anicteric. Oral mucosa moist. Oropharynx clear. Neck: Supple. Respiratory: Lungs are clear to auscultation bilaterally. Cardiovascular: Regular rate and rhythm with S1-S2. Gastrointestinal: Abdomen is soft, nontender, and nondistended with positive bowel sounds. Skin: Warm and dry. No rash or lesions on limited exam. Extremities: No cyanosis, clubbing, or edema. Radial and pedal pulses intact. Neurological: Alert. Cranial nerves 2-12 are grossly intact. No gross focal deficits to casual conversation. Psychiatric: Pleasant and cooperative with normal mood and affect. Judgment and insight intact. Objective Data Vital Signs Vital Signs: Vital Signs - 24 hr 01/14/23 13:52 01/14/23 14:00 01/14/23 13:56 Temperature 97.6 F Pulse Rate 56 L 57 L 51 L Respiratory Rate 18 Blood Pressure 184/58 H 127/57 L 148/60 H Pulse Oximetry 100 Oxygen Delivery 01/14/23 14:00 01/14/23 20:20 01/14/23 20:00 Temperature Pulse Rate 57 L 64 67 Respiratory Rate Blood Pressure 127/57 L 190/74 H Pulse Oximetry Oxygen Delivery 01/14/23 20:01 01/14/23 20:02 01/14/23 21:31 Temperature 98.3 F Pulse Rate 76 71 64 Respiratory Rate 16 Blood Pressure 158/67 H 147/64 H 160/77 H Pulse Oximetry 96 Oxygen Delivery 01/15/23 06:00 01/15/23 08:15 01/15/23 09:15 Temperature 98.4 F Pulse Rate 56 L Respiratory Rate 16 Blood Pressure 203/77 H 164/60 H Pulse Oximetry 97 Oxygen Delivery Room Air 01/15/23 09:16 01/15/23 09:16 01/15/23 10:06 Temperature Pulse Rate 57 L Respiratory Rate Blood Pressure 147/54 H 132/58 L Pulse Oximetry Oxygen Delivery Intake/Output Intake/Output: Intake & Output 01/12/23 01/13/23 01/14/23 01/15/23 23:59 23:59 23:59 23:59 Intake Total 240 1370 360 Output Total 400 1200 350 Balance -160 170 10 Meds/Results Medications: Active Medications Generic Name Dose Route Start Last Admin Trade Name Freq PRN Reason Stop Dose Admin Acetaminophen 650 mg
[2023-01-15 11:57] LABS: Glucose Point of Care 187 mg/dl (65-105)
[2023-01-15] MEDS: INSULIN ASPART (*BKC) 100 UNITS/ML 10 UNITS SUB-Q (12:22)
[2023-01-15] MEDS: GLUCOSE ORAL GEL 15 GM OF GLUCSE IN 37.5 GM TUBE PO (17:35)
[2023-01-15 17:46] LABS: Glucose Point of Care 61 mg/dl (65-105)
--- NOTE | 2023-01-15 18:01 | P.PNCROSS_ITS ---
Event Note Event Note Event Note: ANALYTICAL STRATEGIST called for a fall. patient lying on the floor. alert and oriented. initially not able ot move his right arm, but spoontaneously able to move. he staes he was trying to get up from the commode but got shaky and lost his balance. per rn he was not responsive when initially seen with some shaking of his upper extermities. he was moed to the chair,vitals with eleated systolic bp. blood sugar checked was 61. given glucose. back to alert and oriened, both extremities equal. will get ct head and cervicac spine. monitor accuchecks. suspect vasovagal syncope. place on telemetry.
[2023-01-15 20:03] LABS: Glucose Point of Care 164 mg/dl (65-105)
[2023-01-15] MEDS: rOPINIRole HCL 0.5 MG TABLET PO (20:34)
[2023-01-15] MEDS: ACETAMINOPHEN 325 MG TABLET 650 MG PO (20:37)
[2023-01-16] VITALS (9 sets, daily range): BP systolic 131–187; BP diastolic 60–99; PULSE 56–78; RESP 18; TEMP 36.4–36.8; O2SAT 98
[2023-01-16 06:43] LABS: Basophils Absolute Auto 0.1 K/mm3 (0.0-0.1); Eosinophils Absolute Auto 0.5 K/mm3 (0-0.3); Eosinophils Percent Auto 6.1 % (0-4.4); Hematocrit 28.3 % (42.0-52.0); Hemoglobin 9.4 g/dL (14.0-18.0); Immature Granulocyte Absolute 0.03 K/mm3 (0.00-0.031); Immature Granulocyte Percent A 0.4 % (0-0.5); Mean Corpuscular HGB Conc 33.2 g/dl (32-36); Mean Corpuscular Hemoglobin 35.1 pg (26-34); Mean Corpuscular Volume 105.6 fl (80-100); Mean Platelet Volume 10.2 fl (7.4-10.4); Monocytes Absolute Auto 0.7 K/mm3 (0.1-0.6); Monocytes Percent Auto 8.4 % (2.6-8.5); Neutrophils Absolute Auto 5.5 K/mm3 (1.3-6.7); Neutrophils Percent Auto 67.1 % (45.5-73.1); Platelet Count Result 398 k/mm3 (150-375); Red Blood Count 2.68 M/mm3 (4.6-6.20); Red Cell Distribution Width 15.6 % (11.5-14.5); White Blood Count 8.2 K/mm3 (4.5-10.0)
[2023-01-16 07:02] LABS: Anion Gap 0 mmol/L (8-16); Blood Urea Nitrogen 38 mg/dL (9-20); Calcium 7.6 mg/dL (8.4-10.2); Carbon Dioxide 32 mmol/L (22-30); Chloride 105 mmol/L (98-107); Estimated CRCL calculation 28 ml/min; Estimated Glomerular Filt Rate 31; Glucose 179 mg/dL (65-110); Potassium 4.3 mmol/L (3.4-5.0); Sodium 137 mmol/L (137-145)
[2023-01-16 08:22] LABS: Glucose Point of Care 145 mg/dl (65-105)
[2023-01-16] MEDS: buPROPion HCL 75 MG TABLET PO (08:44)
[2023-01-16] MEDS: SERTRALINE HCL 25 MG TABLET PO (08:44)
[2023-01-16] MEDS: ASPIRIN 81 MG CHEWABLE TABLET PO (08:44)
[2023-01-16] MEDS: GABAPENTIN 100 MG CAPSULE PO (08:44)
[2023-01-16] MEDS: LOSARTAN POTASSIUM 100 MG TABLET PO (08:44)
[2023-01-16] MEDS: carvediloL 25 MG TABLET PO (08:46)
--- NOTE | 2023-01-16 10:54 | PM.IMPN ---
Progress Note: A&P Assessment and Plan (1) Recurrent falls: Code(s): R29.6 - Repeated falls Status: Acute (2) Abnormal finding on CT scan: Code(s): R93.89 - Abnormal findings on diagnostic imaging of other specified body structures Status: Acute Assessment and Plan: X-ray and CT of hip show possible fracture. Awaiting MRI. Then awaiting orthopedic plan. (3) Hypertension: Qualifiers: Hypertension type: primary hypertension Qualified Code(s): I10 - Essential (primary) hypertension Code(s): I10 - Essential (primary) hypertension Status: Chronic Assessment and Plan: Monitor (4) Insulin dependent diabetes mellitus: Status: Acute Assessment and Plan: Blood sugars are okay. Patient did have episode of hypoglycemia yesterday. Resolved. (5) Chronic kidney disease: Qualifiers: Chronic kidney disease stage: stage 3 (moderate) Chronic kidney disease stage 3 subtype: stage 3b (GFR 30-44) Qualified Code(s): N18.32 - Chronic kidney disease, stage 3b Code(s): N18.9 - Chronic kidney disease, unspecified Status: Chronic Assessment and Plan: Monitor (6) Chronic anemia: Code(s): D64.9 - Anemia, unspecified Status: Acute Assessment and Plan: No bleeding, monitor (7) Diastolic congestive heart failure: Qualifiers: Heart failure chronicity: chronic Qualified Code(s): I50.32 - Chronic diastolic (congestive) heart failure Code(s): I50.30 - Unspecified diastolic (congestive) heart failure Status: Chronic Assessment and Plan: Stable (8) Obstructive sleep apnea: Code(s): G47.33 - Obstructive sleep apnea (adult) (pediatric) Status: Acute (9) Chronic obstructive pulmonary disease: Code(s): J44.9 - Chronic obstructive pulmonary disease, unspecified Status: Acute Assessment and Plan: Stable Subjective Date/time seen: 01/16/23 10:54 Exam Narrative: General: Well-developed gentleman sitting at the side of the bed in no distress. Weight: 88.7 kg. BMI: 20.1. HEENT: PERRL, EOMI. Small abrasion on the right lateral forehead from previous fall. Sclera anicteric. Oral mucosa moist. Oropharynx clear. Neck: Supple. Respiratory: Lungs are clear to auscultation bilaterally. Cardiovascular: Regular rate and rhythm with S1-S2. Gastrointestinal: Abdomen is soft, nontender, and nondistended with positive bowel sounds. Skin: Warm and dry. No rash or lesions on limited exam. Extremities: No cyanosis, clubbing, or edema. Radial and pedal pulses intact. Neurological: Alert. Cranial nerves 2-12 are grossly intact. No gross focal deficits to casual conversation. Psychiatric: Pleasant and cooperative with normal mood and affect. Judgment and insight intact. Objective Data Vital Signs Vital Signs: Vital Signs - 24 hr 01/15/23 14:00 01/15/23 17:40 01/15/23 20:34 Temperature 97.1 F L 98.1 F Pulse Rate 57 L 60 67 Respiratory Rate 18 14 Blood Pressure 132/58 L 191/76 H Pulse Oximetry 100 100 01/15/23 20:38 01/15/23 20:30 01/15/23 20:00 Temperature 97.6 F 97.6 F Pulse Rate 68 68 65 Respiratory Rate 18 18 Blood Pressure 189/68 H 189/68 H Pulse Oximetry 97 97 01/16/23 00:00 01/16/23 04:00 01/16/23 06:00 Temperature 98.3 F Pulse Rate 78 70 70 Respiratory Rate 18 Blood Pressure 185/77 H Pulse Oximetry 98 01/16/23 08:46 01/16/23 08:40 01/16/23 08:00 Temperature Pulse Rate 67 67 Respiratory Rate Blood Pressure 172/60 H 187/65 H Pulse Oximetry 01/16/23 09:35 Temperature Pulse Rate Respiratory Rate Blood Pressure 131/62 Pulse Oximetry Intake/Output Intake/Output: Intake & Output 01/13/23 01/14/23 01/15/23 01/16/23 23:59 23:59 23:59 23:59 Intake Total 240 1370 1320 730 Output Total 400 1200 550 700 Balance -160 170 770 30 Meds/Results Medications: Active Medications G
[2023-01-16 12:14] LABS: Glucose Point of Care 241 mg/dl (65-105)
--- NOTE | 2023-01-16 12:24 | PM.PNORT ---
Progress Note: A&P Assessment and Plan (1) Closed subcapital fracture of femur: Qualifiers: Encounter type: initial encounter Laterality: right Qualified Code(s): S72.011A - Unspecified intracapsular fracture of right femur, initial encounter for closed fracture Code(s): S72.019A - Unspecified intracapsular fracture of unspecified femur, initial encounter for closed fracture Status: Acute Assessment and Plan: Right hip pain after initial fall. History, physical exam and radiographs reviewed with the patient. Questionable fracture femoral neck on radiographs. CT scan equivocal. Discussed the condition, nature, etiology and course of natural history with the patient. Treatment options including surgical and nonoperative treatment were reviewed. Risks and benefits of each as well as alternatives reviewed. The patient's questions were answered. Patient was scheduled to have a MRI but due to penile implant and inability to obtain records, [facility] radiology unable to proceed with MRI at this time. Patient is ambulating with PT/OT without pain. No pain with AROM/PROM of the hip. No pain with flexion/extension. New fall last night not resulting in increase of pain. Will continue to treat conservatively at this time with PT/OT and fall precautions. Patient will go home with home health once cleared by the medicine team. He will follow up in the outpatient orthopedic clinic in 2 weeks at which point we will perform repeat radiographs. (2) Falls frequently: Code(s): R29.6 - Repeated falls Status: Acute (3) Obstructive sleep apnea: Code(s): G47.33 - Obstructive sleep apnea (adult) (pediatric) Status: Acute (4) Diastolic congestive heart failure: Qualifiers: Heart failure chronicity: chronic Qualified Code(s): I50.32 - Chronic diastolic (congestive) heart failure Code(s): I50.30 - Unspecified diastolic (congestive) heart failure Status: Chronic Plan Reviewed radiographs, physical exam, inability to obtain MRI, PT notes and fall events with attending MD, Dr. Shanks. No further recommendations at this time. Agrees with current plan as indicated above. Subjective Subjective Date/Time Seen: 01/16/23 12:24 Interval history: Patient doing well. Laying in bed. Events of fall last night reviewed. No new complaints of pain s/p fall. Patient continues to deny pain of the right hip/thigh today. Eager to be discharged. Review of Systems Constitutional: Constitutional: Denies fever(s) Eyes: Eyes: Denies blurry vision ENT: Reports Normal hearing present Cardiovascular: Cardiovascular: Denies chest pain and Denies dyspnea Respiratory: Respiratory: Denies dyspnea and Denies wheezing Gastrointestinal: Gastrointestinal: Denies abdominal pain Genitourinary: Genitourinary: Denies urinary urgency Musculoskeletal: Musculoskeletal: Reports as per HPI and Denies numbness Integumentary/Breasts: Skin/Breast: Denies changing lesions and Denies sores Neurologic: Reports Normal hearing present, Denies behavioral changes, Denies confusion, Denies numbness and Denies convulsions Psychiatric: Psychiatric: Denies behavioral changes, Denies confusion and Denies hallucinations Endocrine: Endocrine: Denies heat intolerance Hematologic/Lymphatic: Hematologic/Lymphatic: Denies easy bleeding Allergic/Immunologic: Allergic/Immunologic: Denies wheezing Exam Const: General: healthy appearing; No in distress or confusion Orientation/consciousness: oriented to person, oriented to place, oriented to time and No confusion HENMT: Head: normal to inspection, normocephalic and atraumatic Eyes: Conjunctivae: conjunctivae normal Sclera: sclerae normal Neck: Neck: supple and nontender Resp: Effort & Inspection: normal respiratory effort and no audible wheezes Cardio: Rate: regular rate Rhythm: regular rhythm Skin: General skin exam: no rashes or lesions noted Neuro: General:
[2023-01-16] MEDS: INSULIN ASPART (*BKC) 100 UNITS/ML 10 UNITS SUB-Q (13:13)
[2023-01-16] MEDS: INSULIN ASPART (*BKC) 100 UNITS/ML SUB-Q (13:13)
--- NOTE | 2023-01-16 13:18 | PM.DS ---
DS: Admitting Diagnosis Discharge Date 01/16/23 Admitting Diagnosis hip pain DS: Discharge Diagnosis Discharge Diagnosis (1) Closed subcapital fracture of femur: Qualifiers: Encounter type: initial encounter Laterality: right Qualified Code(s): S72.011A - Unspecified intracapsular fracture of right femur, initial encounter for closed fracture Code(s): S72.019A - Unspecified intracapsular fracture of unspecified femur, initial encounter for closed fracture Status: Acute Assessment and Plan: Right hip pain after initial fall. History, physical exam and radiographs reviewed with the patient. Questionable fracture femoral neck on radiographs. CT scan equivocal. Discussed the condition, nature, etiology and course of natural history with the patient. Treatment options including surgical and nonoperative treatment were reviewed. Risks and benefits of each as well as alternatives reviewed. The patient's questions were answered. Patient was scheduled to have a MRI but due to penile implant and inability to obtain records, [facility] radiology unable to proceed with MRI at this time. Patient is ambulating with PT/OT without pain. No pain with AROM/PROM of the hip. No pain with flexion/extension. New fall last night not resulting in increase of pain. Will continue to treat conservatively at this time with PT/OT and fall precautions. Patient will go home with home health once cleared by the medicine team. He will follow up in the outpatient orthopedic clinic in 2 weeks at which point we will perform repeat radiographs. (2) Falls frequently: Code(s): R29.6 - Repeated falls Status: Acute (3) Obstructive sleep apnea: Code(s): G47.33 - Obstructive sleep apnea (adult) (pediatric) Status: Acute (4) Diastolic congestive heart failure: Qualifiers: Heart failure chronicity: chronic Qualified Code(s): I50.32 - Chronic diastolic (congestive) heart failure Code(s): I50.30 - Unspecified diastolic (congestive) heart failure Status: Chronic Plan Reviewed radiographs, physical exam, inability to obtain MRI, PT notes and fall events with attending MD, Dr. Shanks. No further recommendations at this time. Agrees with current plan as indicated above. DS: Summary Hospital Course Hospital Course: Admitted for hip pain after fall, Ct scan show possible fracutre, PT OT working with patient and unable to get MRI. Orthopedics recommended fu as outpatient and continue HH after discharge. Patient is working with PT with minimal to no pain. Time Spent with Patient Time attestation: Total time spent providing and/or coordinating discharge services: Exam Narrative: General: Well-developed gentleman sitting at the side of the bed in no distress. Weight: 88.7 kg. BMI: 20.1. HEENT: PERRL, EOMI. Small abrasion on the right lateral forehead from previous fall. Sclera anicteric. Oral mucosa moist. Oropharynx clear. Neck: Supple. Respiratory: Lungs are clear to auscultation bilaterally. Cardiovascular: Regular rate and rhythm with S1-S2. Gastrointestinal: Abdomen is soft, nontender, and nondistended with positive bowel sounds. Skin: Warm and dry. No rash or lesions on limited exam. Extremities: No cyanosis, clubbing, or edema. Radial and pedal pulses intact. Neurological: Alert. Cranial nerves 2-12 are grossly intact. No gross focal deficits to casual conversation. Psychiatric: Pleasant and cooperative with normal mood and affect. Judgment and insight intact. DS: Data Data Completed and Pending Labs on day of discharge: Labs from last 24 hours 01/16/23 01/16/23 01/16/23 12:12 08:19 06:13 WBC 8.2 RBC 2.68 L Hgb 9.4 L Hct 28.3 L MCV 105.6 H MCH 35.1 H MCHC 33.2 RDW 15.6 H Plt Count 398 H MPV 10.2 Immature Gran % (Auto) 0.4 Neut % (Auto) 67.1 Lymph % (Auto) 17.0 L [place] % (Auto) 8.4 Eos % (Auto) 6.1 H Baso % (Auto) 1.0 L
== END 2023-01-16 14:09 | disposition home health service (06) | DRG 536 ==
LOC: ANHED 09:37 → ANH3MED 12:55
PROVIDERS: Physician Assistant; Admitting Provider Chiropractor; Emergency Provider General Practice; PCP Hospitalist; Visit Provider Chiropractor
DX: S72.011A Unspecified intracapsular fracture of right femur, initial encounter for closed fracture (principal); I13.0 Hypertensive heart and chronic kidney disease with heart failure and stage 1 through stage 4 chronic kidney disease, or unspecified chronic kidney disease; I50.32 Chronic diastolic (congestive) heart failure; W18.11XA Fall from or off toilet without subsequent striking against object, initial encounter; W19.XXXA Unspecified fall, initial encounter; D63.1 Anemia in chronic kidney disease; E11.22 Type 2 diabetes mellitus with diabetic chronic kidney disease; F32.A Depression, unspecified; G47.33 Obstructive sleep apnea (adult) (pediatric); J44.9 Chronic obstructive pulmonary disease, unspecified; M19.90 Unspecified osteoarthritis, unspecified site; N18.32 Chronic kidney disease, stage 3b; R29.6 Repeated falls; Z90.49 Acquired absence of other specified parts of digestive tract; Z87.891 Personal history of nicotine dependence; Z79.4 Long term (current) use of insulin
CPT/HCPCS: 36415; 70450; 71045; 72125; 73502; 73700; 80048; 80053; 81001; 82948; 83036; 83605; 83735; 83880; 84443; 84484; 85025; 90471; 90715; 93005; 96361; 96365; 96374; 96375; 96376; 97110; 97116; 97161; 97165; 99284; 99285; A9270; G0378; J0360; J1815; J2405; J3475; J7040

== ENCOUNTER 2023-01-19 18:45 | Emergency (ER) | payer MEDICARE, SELFPAY ==
[2023-01-19] VITALS (22 sets, daily range): BP systolic 101–184; BP diastolic 65–90; PULSE 60–72; RESP 14–19; TEMP 36.8; O2SAT 93–97
--- NOTE | ~2023-01-19 | CT_ITS ---
EXAMINATION: CT abdomen pelvis wo con DATE: 01/19/2023 21:17 INDICATION: Elbow pain after fall TECHNIQUE: Computed tomography (CT) of the abdomen and pelvis was performed without intravenous contr ast. The dose-length product (DLP) was 1034.04 mGy-cm. Automated exposure control and iterative recon struction technique were employed. COMPARISON: None FINDINGS: Evaluation for solid organ injury is limited by the absence of intravenous contrast. Minima l dependent atelectasis is present in the lung bases. The heart size is normal. Within the limitation s of noncontrast examination, the liver, spleen, pancreas, gallbladder, and adrenal glands are normal . There are soft tissue attenuation lesions of the kidneys measuring 1.8 cm on the left and 7 mm on t he right. There is a 3.5 cm exophytic cyst of the right kidney. No pathologically enlarged abdominal or pelvic lymph nodes are identified. There is no free intraperitoneal gas or evidence of bowel obstr uction. There is mild wall thickening of the urinary bladder with mild adjacent fat stranding. Prosta tomegaly is noted. There is moderate lumbar spondylosis. Recommend a penile implant is noted. IMPRESSION: 1. Bladder wall thickening with surrounding fat stranding which could reflect cystitis or chronic out let obstruction. 2. No solid organ injury identified although sensitivity is limited by absence of intravenous contras t. 3. Indeterminate soft tissue attenuation masses of the kidneys. Follow-up by nonemergent CT or MRI wi thout and with contrast is recommended. Reviewed, dictated and finalized at location F. IMPRESSION: 1. Bladder wall thickening with surrounding fat stranding which could reflect c ystitis or chronic outlet obstruction. 2. No solid organ injury identified although sensitivity is limited by absence of intravenous contrast. 3. Indeterminate soft tissue attenuation masses of the kidneys. Follow-up by no nemergent CT or MRI without and with contrast is recommended.
--- NOTE | ~2023-01-19 | CT_ITS ---
EXAMINATION: CT cervical spine wo con DATE: 01/19/2023 21:17 INDICATION: Head injury TECHNIQUE: Computed tomography (CT) of the cervical spine was performed without intravenous contrast. The dose-length product (DLP) was 505.61 mGy-cm. Automated exposure control and iterative reconstruc tion technique were employed. COMPARISON: 01/15/2023 FINDINGS: Again noted is moderate loss of intervertebral disc space height at C5-6. The odontoid proc ess is intact. The vertebral body heights and alignment are normal. There is no fracture. Multilevel mild to moderate facet and uncovertebral joint osteoarthritis is seen. 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 IMPRESSION: 1. Moderate cervical spondylosis without acute findings or significant interval change. Reviewed, dictated and finalized at location F.
--- NOTE | ~2023-01-19 | XR_ITS ---
EXAMINATION: XR thoracic spine 2V DATE: 01/19/2023 21:27 INDICATION: Thoracic back pain TECHNIQUE: AP, lateral and lateral swimmer's views of the thoracic spine were obtained. COMPARISON: None. FINDINGS: Bone alignment is normal. There is no fracture. The vertebral body heights are maintained. There is mild loss of intervertebral disc space height at multiple levels of the thoracic spine. Ther e are bridging osteophytes at multiple levels in the spine, consistent with diffuse idiopathic skelet al hyperostosis (DISH). IMPRESSION: 1. Moderate thoracic spondylosis and diffuse idiopathic skeletal hyperostosis without acute osseous a bnormality. Reviewed, dictated and finalized at location F. IMPRESSION: 1. Moderate thoracic spondylosis and diffuse idiopathic skeletal hyperostosis w ithout acute osseous abnormality.
--- NOTE | ~2023-01-19 | CT_ITS ---
EXAMINATION: CT brain wo con INDICATION: Head injury COMPARISON: 01/15/2023 TECHNIQUE: Standard unenhanced head CT. The dose-length product (DLP) was 605.33 mGy-cm. The mA was a djusted according to patient size. Iterative reconstruction technique was employed. FINDINGS: There is no acute intraparenchymal hemorrhage. No evidence of mass lesion. No evidence of a cute infarction. There is moderate periventricular and subcortical hypodensity probably related to sm all vessel ischemic disease. There is moderate prominence of the sulci and ventricles related to cere bral atrophy. Intracranial calcified cerebral atherosclerosis is noted. There are no extra-axial jabier ections. There is no mass effect or midline shift. Changes in the globes are likely from ocular lens surgery. The visualized sinuses and mastoid air cells are well aerated. IMPRESSION: 1. No acute intracranial abnormality. 2. Age related findings. Reviewed, dictated and finalized at location F.
--- NOTE | 2023-01-19 20:10 | ECG_ITS ---
Measurements Intervals [place] Rate: 67 P: 92 TX: 157 QRS: -5 QRSD: 97 T: 15 QT: 401 QTc: 425 Interpretive Statements SINUS RHYTHM COMPARED TO ECG 01/13/2023 05:53:52 NO SIGNIFICANT CHANGES Electronically Signed On 01-20-2023 8:59:50 CDT by Irene Aviles M.D.
[2023-01-19 20:41] LABS: Basophils Absolute Auto 0.1 K/mm3 (0.0-0.1); Basophils Percent Auto 0.6 % (0.2-1.2); Eosinophils Absolute Auto 0.3 K/mm3 (0-0.3); Eosinophils Percent Auto 1.8 % (0-4.4); Hemoglobin 8.1 g/dL (14.0-18.0); Immature Granulocyte Absolute 0.14 K/mm3 (0.00-0.031); Immature Granulocyte Percent A 0.9 % (0-0.5); Lymphocytes Absolute Auto 1.11 K/mm3 (0.9-3.2); Lymphocytes Percent Auto 7.2 % (18.3-44.2); Mean Corpuscular HGB Conc 32.4 g/dl (32-36); Mean Corpuscular Hemoglobin 35.4 pg (26-34); Mean Corpuscular Volume 109.2 fl (80-100); Monocytes Absolute Auto 1.2 K/mm3 (0.1-0.6); Monocytes Percent Auto 7.8 % (2.6-8.5); Neutrophils Absolute Auto 12.6 K/mm3 (1.3-6.7); Neutrophils Percent Auto 81.7 % (45.5-73.1); Platelet Count Result 382 k/mm3 (150-375); Red Blood Count 2.29 M/mm3 (4.6-6.20); Red Cell Distribution Width 15.4 % (11.5-14.5); White Blood Count 15.4 K/mm3 (4.5-10.0)
[2023-01-19 20:52] LABS: Alanine Aminotransferase 26 U/L (6-50); Alkaline Phosphatase 84 U/L (38-126); Anion Gap 3 mmol/L (8-16); Aspartate Amino Transferase 25 U/L (17-59); Bilirubin,Total 0.5 mg/dL (0.2-1.3); Blood Urea Nitrogen 52 mg/dL (9-20); Calcium 7.7 mg/dL (8.4-10.2); Carbon Dioxide 32 mmol/L (22-30); Chloride 103 mmol/L (98-107); Estimated CRCL calculation 26 ml/min; Estimated Glomerular Filt Rate 25; Glucose 195 mg/dL (65-110); Lipase 24 U/L (23-300); Magnesium 1.9 mg/dL (1.6-2.3); Potassium 4.2 mmol/L (3.4-5.0); Sodium 138 mmol/L (137-145)
[2023-01-19 20:53] LABS: Lactic Acid Reflex 0.9 mmol/L (0.7-2.0)
[2023-01-19 21:04] LABS: Troponin I 0.026 ng/mL (0.000-0.034)
[2023-01-19] MEDS: SODIUM CHLORIDE 0.9% IV 1,000 ML 500 ML IV CONT (21:35)
--- NOTE | 2023-01-19 22:41 | ED.GENADULT ---
HPI - General Adult General Chief complaint: Fall Stated complaint: fall Time Seen by Provider: 01/19/23 20:01 History of Present Illness HPI narrative: Patient 77-year-old gentleman who presents emerged from with chief complaint of tailbone pain back pain status post fall. The patient reports he was trying to sit down in a chair missed the chair fell backwards and landed on the ground. The patient recently was in the hospital after being evaluated for possible hip fracture that they wanted to do a MRI but were unable to due to a penile implant. The patient reports that he has over the last 24 hours had some episodes of nausea and vomiting Related Data Home Medications Medication Instructions Recorded Confirmed carvedilol 12.5 mg tablet (Coreg) 25 mg PO Q12HR 11/27/22 01/13/23 gabapentin 100 mg capsule 100 mg PO BID 11/27/22 01/13/23 insulin glargine 100 unit/mL (3 22 unit subcut QPM 01/13/23 01/13/23 mL) subcutaneous pen (Lantus Solostar U-100 Insulin) insulin lispro 100 unit/mL 10 unit subcut TIDWM 01/13/23 01/13/23 subcutaneous solution (Humalog U-100 Insulin) losartan 100 mg tablet 100 mg PO DAILY 01/13/23 01/13/23 pantoprazole 40 mg tablet,delayed 40 mg PO WEEKLY 01/13/23 01/13/23 release Allergies Allergy/AdvReac Type Severity Reaction Status Date / Time LAUREN Inhibitors Allergy Cough Verified 11/27/22 10:53 enalapril Allergy Cough Verified 11/27/22 10:53 lisinopril Allergy Cough Verified 11/27/22 10:53 quinapril Allergy Cough Verified 11/27/22 10:53 Review of Systems Review of Systems: A 10 system review of systems was completed on the patient and is negative except for what is stated in the HPI. Nursing and ancillary documentation was reviewed. [facility] Past Medical History Medical History Arthritis Chronic anemia Chronic kidney disease Chronic obstructive pulmonary disease Depression Diabetic peripheral neuropathy Diastolic congestive heart failure Hypertension Insulin dependent diabetes mellitus Obstructive sleep apnea Surgical History Surgical History History of cholecystectomy History of foot surgery History of penile implant Family History Family History Father Cancer Diabetes mellitus Mother Hyperlipidemia Hypertension Heart attack Sibling Hx of CABG Colon cancer Social History Social History Social History: Surrogate medical decision maker: Palmira Worthington, granddaughter. Code status: Full code. Smoking packs per day: 1 Smoking cigarettes per day: 20.0 Smoking status: Former smoker Tobacco type: cigarettes Second hand tobacco smoke exposure: No Alcohol intake: current Drinks per week: 1 Alcohol use details: Occasional glass a wine though rare. Substance use: unknown Substance use type: does not use Lack of Transportation: No Lack of Food: Never True Current Housing: I Have Housing Concerned About Future Housing: No Difficulty Paying Gas/Electric Bills: No Difficulty Paying for Meds: No Currently Unemployed: No Education: High School Diploma/GED Difficulty w/ Childcare or Family Care: No Living arrangements: with family Occupation/Education: retired Additional occupation/education comments: Retired from [employer]. Spiritual care concerns: No Exam Narrative: GENERAL: Well-appearing, well-nourished, and in no acute distress. HEAD: Normocephalic, atraumatic. EYES: PERRLA and EOMI. ENT: Nares clear, no rhinorrhea or epistaxis. Mucous membranes moist. NECK: Supple. CHEST: Clear to auscultation. No respiratory distress. HEART: Regular rate and rhythm. No murmur heard. Normal peripheral pulses. ABDOMEN: Soft, nontender, nondistended, normal active bow
[2023-01-19 23:02] LABS: Appearance Urine Cloudy (Clear); Bacteria Urine 4+ /hpf; Bilirubin Urine Negative (Negative); Blood Urine 1+ (Negative); Color Urine Yellow (Yellow); Glucose Urine UA 1+ mg/dL (Negative); Ketones Urine Negative (Negative); Leukocyte Esterase Ur 2+ LEU/UL (Negative); Mucus Urine Present /lpf; Nitrate Urine Positive (Negative); Protein Urine 4+ mg/dL (Negative); RBC Urine 0-2 /hpf (0-2); Specific Grav Ur 1.019 (1.001-1.035); Squamous Epithelial Cell Urine None seen /hpf (Few); Urobilinogen Urine 0.2 mg/dL (<2.0); WBC Urine >100 /hpf; pH Urine 7.5 (5.0-9.0)
[2023-01-19 23:08] LABS: Add Urine Microscopic? YES
--- NOTE | 2023-01-19 23:15 | PC.NURSE ---
This RN assumed care of pt.
== END 2023-01-20 00:27 | disposition home or self-care (01) ==
PROVIDERS: Emergency Provider Emergency Medicine; PCP Hospitalist
DX: S20.224A Contusion of middle back wall of thorax, initial encounter (principal); N39.0 Urinary tract infection, site not specified; E11.22 Type 2 diabetes mellitus with diabetic chronic kidney disease; I13.0 Hypertensive heart and chronic kidney disease with heart failure and stage 1 through stage 4 chronic kidney disease, or unspecified chronic kidney disease; N18.9 Chronic kidney disease, unspecified; I50.30 Unspecified diastolic (congestive) heart failure; E11.42 Type 2 diabetes mellitus with diabetic polyneuropathy; D64.9 Anemia, unspecified; G47.33 Obstructive sleep apnea (adult) (pediatric); M19.90 Unspecified osteoarthritis, unspecified site; Z87.891 Personal history of nicotine dependence; Z90.49 Acquired absence of other specified parts of digestive tract; Z79.4 Long term (current) use of insulin; W07.XXXA Fall from chair, initial encounter
CPT/HCPCS: 36415; 70450; 72070; 72125; 74176; 80053; 81001; 83605; 83690; 83735; 84484; 85025; 87077; 87086; 87186; 93005; 96361; 96365; 99284; J0696; J7030

== ENCOUNTER 2023-02-12 11:49 | Emergency (ER) | payer MEDICARE, SELFPAY ==
[2023-02-12] VITALS (7 sets, daily range): BP systolic 148–184; BP diastolic 60–81; PULSE 57–68; RESP 16–20; TEMP 36.6–36.8; O2SAT 95–97
--- NOTE | 2023-02-12 12:07 | ECG_ITS ---
Measurements Intervals [place] Rate: 63 P: 18 GA: 168 QRS: -5 QRSD: 104 T: 30 QT: 444 QTc: 455 Interpretive Statements SINUS RHYTHM BASELINE ARTIFACT- II, III NORMAL ECG COMPARED TO ECG 01/19/2023 20:53:20 NO SIGNIFICANT CHANGES Electronically Signed On 02-12-2023 13:55:30 CDT by Niko Reilly D.O.
[2023-02-12 12:22] LABS: Basophils Absolute Auto 0.1 K/mm3 (0.0-0.1); Eosinophils Absolute Auto 0.3 K/mm3 (0-0.3); Eosinophils Percent Auto 3.9 % (0-4.4); Hematocrit 25.4 % (42.0-52.0); Hemoglobin 8.2 g/dL (14.0-18.0); Immature Granulocyte Absolute 0.03 K/mm3 (0.00-0.031); Immature Granulocyte Percent A 0.4 % (0-0.5); Lymphocytes Absolute Auto 1.19 K/mm3 (0.9-3.2); Lymphocytes Percent Auto 16.5 % (18.3-44.2); Mean Corpuscular HGB Conc 32.3 g/dl (32-36); Mean Corpuscular Hemoglobin 35.5 pg (26-34); Mean Platelet Volume 9.8 fl (7.4-10.4); Monocytes Absolute Auto 0.4 K/mm3 (0.1-0.6); Monocytes Percent Auto 4.9 % (2.6-8.5); Neutrophils Absolute Auto 5.3 K/mm3 (1.3-6.7); Neutrophils Percent Auto 73.3 % (45.5-73.1); Platelet Count Result 383 k/mm3 (150-375); Red Blood Count 2.31 M/mm3 (4.6-6.20); Red Cell Distribution Width 15.9 % (11.5-14.5); White Blood Count 7.2 K/mm3 (4.5-10.0)
[2023-02-12 12:33] LABS: Alanine Aminotransferase 16 U/L (6-50); Albumin Level 3.1 g/dL (3.5-5.1); Alkaline Phosphatase 69 U/L (38-126); Anion Gap 4 mmol/L (8-16); Aspartate Amino Transferase 25 U/L (17-59); Bilirubin,Total 0.5 mg/dL (0.2-1.3); Blood Urea Nitrogen 36 mg/dL (9-20); Calcium 7.9 mg/dL (8.4-10.2); Carbon Dioxide 29 mmol/L (22-30); Chloride 107 mmol/L (98-107); Estimated CRCL calculation 22 ml/min; Estimated Glomerular Filt Rate 21; Glucose 137 mg/dL (65-110); Potassium 4.3 mmol/L (3.4-5.0); Sodium 140 mmol/L (137-145)
[2023-02-12 12:52] LABS: Anisocytosis 1+ (NORMAL); Macrocytosis 1+ (NORMAL)
[2023-02-12 12:53] LABS: Platelet Estimate Adequate (Adequate)
[2023-02-12] MEDS: MECLIZINE HCL 25 MG TABLET PO (12:53)
[2023-02-12] MEDS: SODIUM CHLORIDE 0.9% IV 500 ML 999 ML IV CONT (12:53)
[2023-02-12 13:53] LABS: Schistocytes None Seen (NORMAL)
--- NOTE | 2023-02-12 14:39 | ED.DIZZY ---
HPI - Dizziness General Chief Complaint: Dizziness Stated Complaint: dizziness Time Seen by Provider: 02/12/23 12:32 History of Present Illness HPI Narrative: Patient is a 77-year-old male who presents ER with dizziness. Spinning in nature. Worse with turning his head and standing up. Associate with some mild nausea. Patient has had this previously. Patient reports chronic tinnitus in the ears. No focal numbness or weakness in arm or leg. No slurred speech. Denies fevers or chills or sweats. Symptoms better with rest. Related Data Home Medications Medication Instructions Recorded Confirmed carvedilol 12.5 mg tablet (Coreg) 25 mg PO Q12HR 11/27/22 01/30/23 gabapentin 100 mg capsule 100 mg PO BID 11/27/22 01/30/23 insulin glargine 100 unit/mL (3 22 unit subcut QPM 01/13/23 01/30/23 mL) subcutaneous pen (Lantus Solostar U-100 Insulin) insulin lispro 100 unit/mL 10 unit subcut TIDWM 01/13/23 01/30/23 subcutaneous solution (Humalog U-100 Insulin) losartan 100 mg tablet 100 mg PO DAILY 01/13/23 01/30/23 pantoprazole 40 mg tablet,delayed 40 mg PO WEEKLY 01/13/23 01/30/23 release Allergies Allergy/AdvReac Type Severity Reaction Status Date / Time LAUREN Inhibitors Allergy Cough Verified 01/30/23 10:45 enalapril Allergy Cough Verified 01/30/23 10:45 lisinopril Allergy Cough Verified 01/30/23 10:45 quinapril Allergy Cough Verified 01/30/23 10:45 Review of Systems Review of Systems: All systems reviewed & are unremarkable except as noted in HPI and below Constitutional: Constitutional: Denies chills, Denies fatigue and Denies fever(s) ENT: Reports vertigo, Reports dizziness, Denies nasal congestion and Denies sore throat Cardiovascular: Cardiovascular: Denies chest pain, Denies rapid heart rate and Denies radiating jaw, neck or arm pain Respiratory: Respiratory: Denies cough and Denies dyspnea Gastrointestinal: Gastrointestinal: Denies abdominal pain, Denies nausea and Denies vomiting Neurologic: Reports dizziness, Denies syncope, Denies headache(s), Denies focal weakness and Denies numbness [facility] Past Medical History Medical History (Updated 02/12/23 @ 14:43 by Marcio Pierce MD) Arthritis Chronic anemia Chronic kidney disease Chronic obstructive pulmonary disease Depression Diabetic peripheral neuropathy Diastolic congestive heart failure Hypertension Insulin dependent diabetes mellitus Obstructive sleep apnea Strain of right hip and thigh Surgical History Surgical History History of cholecystectomy History of foot surgery History of penile implant Family History Family History Father Cancer Diabetes mellitus Mother Hyperlipidemia Hypertension Heart attack Sibling Hx of CABG Colon cancer Social History Social History Social History: Surrogate medical decision maker: Palmira Worthington, granddaughter. Code status: Full code. Smoking packs per day: 1 Smoking cigarettes per day: 20.0 Smoking status: Former smoker Tobacco type: cigarettes Second hand tobacco smoke exposure: No Alcohol intake: current Drinks per week: 1 Alcohol use details: Occasional glass a wine though rare. Substance use: unknown Substance use type: does not use Lack of Transportation: No Lack of Food: Never True Current Housing: I Have Housing Concerned About Future Housing: No Difficulty Paying Gas/Electric Bills: No Difficulty Paying for Meds: No Currently Unemployed: No Education: High School Diploma/GED Difficulty w/ Childcare or Family Care: No Living arrangements: with family Occupation/Education: retired Additional occupation/education comments: Retired from [employer]. Spiritual care concerns: No Exam Narrative: GENERAL: Well-appearing, well-nourished, and in no acute d
== END 2023-02-12 15:15 | disposition home or self-care (01) ==
PROVIDERS: Emergency Provider Emergency Medicine; PCP Hospitalist
DX: R42 Dizziness and giddiness (principal); E86.0 Dehydration; E11.22 Type 2 diabetes mellitus with diabetic chronic kidney disease; I13.0 Hypertensive heart and chronic kidney disease with heart failure and stage 1 through stage 4 chronic kidney disease, or unspecified chronic kidney disease; N18.9 Chronic kidney disease, unspecified; I50.30 Unspecified diastolic (congestive) heart failure; E11.42 Type 2 diabetes mellitus with diabetic polyneuropathy; J44.9 Chronic obstructive pulmonary disease, unspecified; D64.9 Anemia, unspecified; G47.33 Obstructive sleep apnea (adult) (pediatric); F32.A Depression, unspecified; Z87.891 Personal history of nicotine dependence; Z90.49 Acquired absence of other specified parts of digestive tract; Z79.4 Long term (current) use of insulin; Z79.82 Long term (current) use of aspirin
CPT/HCPCS: 36415; 80053; 85025; 93005; 96360; 99284; A9270; J7040

== ENCOUNTER 2023-02-18 15:19 | Inpatient (IN) | payer MEDICARE, SELFPAY ==
[2023-02-18] VITALS (28 sets, daily range): BP systolic 179–218; BP diastolic 67–126; PULSE 64–74; RESP 14–33; TEMP 36.4–36.7; O2SAT 87–99; BMI 29.6
--- NOTE | ~2023-02-18 | US_ITS ---
EXAMINATION: US venous doppler LE RT DATE: 02/19/2023 11:00 INDICATION: Right lower limb swelling TECHNIQUE: Schmitt scale images without and with compression and Doppler images of the right lower extre mity veins were obtained. COMPARISON: None FINDINGS: The right common femoral vein, profunda femoral vein, femoral vein, popliteal vein, peronea l trunk, posterior tibial veins, and greater saphenous vein are patent. IMPRESSION: 1. Patent right lower extremity veins. No evidence of deep venous thrombosis. Reviewed, dictated and finalized at location B.
--- NOTE | ~2023-02-18 | XR_ITS ---
EXAMINATION: XR chest 1V portable Exam Date/Time: 02/18/2023 15:45 CDT HISTORY: dyspnea Comparison: 01/13/2023. RESULT: Lines, tubes, and devices: None. Lungs and pleura: Rightward rotation. Mild diffuse reticular opacities. No focal consolidation, large pleural effusion, or pneumothorax. Cardiomediastinal silhouette: Stable. Other: No acute osseous or upper abdominal finding. IMPRESSION: Mild interstitial edema. Reviewed, dictated and finalized at location K. IMPRESSION: Mild interstitial edema.
--- NOTE | ~2023-02-18 | NM_ITS ---
EXAMINATION: NM pulmonary perfusion DATE: 02/19/2023 11:31 INDICATION: Dyspnea TECHNIQUE: 5.5 mCi Tc-99m MAA by intravenous route. Scintigraphic images of the chest were obtained. COMPARISON: Radiograph dated 02/28/2023 FINDINGS: Large perfusion defect involving the superior segment of the right lower lobe. Moderate-sized perfusi on defect involving the lateral segment of the right middle lobe. Flat contour to the posterior lungs on the lateral projection suggesting bilateral posterior layering pleural effusions. IMPRESSION: 1. Nondiagnostic low or intermediate probability for pulmonary embolism. 2. Suggestion of small bilateral posterior layering pleural effusions. Reviewed, dictated and finalized at location A.
[2023-02-18 15:30] LABS: Glucose Point of Care 268 mg/dl (65-105)
--- NOTE | 2023-02-18 15:40 | ECG_ITS ---
Measurements Intervals [place] Rate: 64 P: 23 NE: 166 QRS: 11 QRSD: 104 T: 38 QT: 449 QTc: 465 Interpretive Statements SINUS RHYTHM ATRIAL PREMATURE COMPLEX BASELINE WANDER- V6 BORDERLINE ECG COMPARED TO ECG 02/12/2023 12:15:24 NO SIGNIFICANT CHANGES Electronically Signed On 02-18-2023 18:47:41 CDT by Niko Reilly D.O.
--- NOTE | 2023-02-18 15:54 | ED.RECABL ---
HPI - Recheck/Abnormal Lab/Rx General Chief Complaint: Recheck/Abnormal Lab/Rx <Ramila Armenta PA-C - Last Filed: 02/18/23 19:15> Stated Complaint: hyperglycemia <Ramila Armenta PA-C - Last Filed: 02/18/23 19:15> Time Seen by Provider: 02/18/23 15:32 <Ramila Armenta PA-C - Last Filed: 02/18/23 19:15> History of Present Illness HPI narrative: 77-year-old male with a history of diastolic CHF, CKD, COPD, insulin-dependent diabetes reports with his for evaluation for hyperglycemia. Patient states his freestyle fabiola stopped working 2 days ago and he has not been checking his sugar. When asked if the patient has been taking his insulin he reports sometimes . I asked if this is due to his freestyle fabiola being broken versus noncompliance and he said both. Patient's states she saw the patient sitting in his recliner using his CPAP during the day. States she tried to talk to him but he would not take his CPAP off, therefore she checked his blood glucose with a fingerstick and the glucometer read greater than 500, therefore they came to the ED. Patient states he put on his CPAP because he was feeling more short of breath than normal since yesterday. He normally does not wear oxygen, only wears CPAP at night. States the dyspnea is worse when laying flat and with exertion. He denies cough or congestion, chest pain, abdominal pain, nausea or vomiting, fever, urinary complaints. He was diagnosed with diastolic CHF 2 months ago. 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 States he does not take a diuretic due to history of recurrent dehydration. He was hospitalized on 01/13 to 01/19 with a acute versus chronic subcapital femoral neck fracture of the right hip. He was evaluated by orthopedics with anticipation to obtain an MRI, however MRI not able to obtain due to penile implant. No history of VTE, he is not anticoagulated, no recent surgeries, no calf pain. Patient and his states the patient gets weekly infusions for CKD, however they are unsure what the infusions are for or what they are called. <Ramila Armenta PA-C - Last Filed: 02/18/23 19:15> Related Data Home Medications: Home Medications Medication Instructions Recorded Confirmed carvedilol 12.5 mg tablet (Coreg) 25 mg PO Q12HR 11/27/22 02/18/23 gabapentin 100 mg capsule 100 mg PO BID 11/27/22 02/18/23 pantoprazole 40 mg tablet,delayed 40 mg PO .THREE TIMES WEEKLY 01/13/23 02/18/23 release amlodipine 10 mg tablet 10 mg PO DAILY 02/18/23 02/18/23 <Ramila Armenta PA-C - Last Filed: 02/18/23 19:15> Allergies/Adverse Reactions: Allergies Allergy/AdvReac Type Severity Reaction Status Date / Time LAUREN Inhibitors Allergy Cough Verified 02/18/23 20:49 enalapril Allergy Cough Verified 02/18/23 20:49 lisinopril Allergy Cough Verified 02/18/23 20:49 quinapril Allergy Cough Verified 02/18/23 20:49 <Ramila Armenta PA-C - Last Filed: 02/18/23 19:15> Review of Systems Review of Systems: CONSTITUTIONAL: Denies fever, chills EYES: Denies visual changes, redness, or discharge. ENT: Denies rhinorrhea, congestion, sore throat, or otalgia. CARDIOVASCULAR: Denies chest pain, palpitations, or edema. RESPIRATORY: See HPI GASTROINTESTINAL: Denies abdominal pain, nausea, vomiting, or diarrhea. GENITOURINARY: Denies dysuria or hematuria. SKIN: Denies rash or itching. MUSCULOSKELETAL: Denies back pain, joint pain, or myalgia. NEUROLOGIC: Denies headache, numbness, dizziness, or weakness. PSYCHIATRIC: Denies anxiety or depression. <Ramila Armenta PA-C - Last Filed: 02/18/23 19:15> [facility] Past Medical History Medical History: Medical History (Updated 02/18/23 @ 19:15 by Ramila Armenta PA-C) Arthritis Chronic anemia Chronic kidney disease Chronic obstructive pulmonary disease Depression Diabetic peripheral neuropathy Diastolic congestive heart failure Hypertension Insulin dependent diabet
[2023-02-18 15:56] LABS: Basophils Absolute Auto 0.1 K/mm3 (0.0-0.1); Basophils Percent Auto 1.1 % (0.2-1.2); Eosinophils Absolute Auto 0.2 K/mm3 (0-0.3); Eosinophils Percent Auto 2.4 % (0-4.4); Hematocrit 23.3 % (42.0-52.0); Hemoglobin 7.6 g/dL (14.0-18.0); Immature Granulocyte Absolute 0.02 K/mm3 (0.00-0.031); Immature Granulocyte Percent A 0.3 % (0-0.5); Lymphocytes Absolute Auto 0.97 K/mm3 (0.9-3.2); Lymphocytes Percent Auto 13.1 % (18.3-44.2); Mean Corpuscular HGB Conc 32.6 g/dl (32-36); Mean Corpuscular Hemoglobin 36.7 pg (26-34); Mean Corpuscular Volume 112.6 fl (80-100); Mean Platelet Volume 10.5 fl (7.4-10.4); Monocytes Absolute Auto 0.4 K/mm3 (0.1-0.6); Monocytes Percent Auto 5.6 % (2.6-8.5); Neutrophils Absolute Auto 5.7 K/mm3 (1.3-6.7); Neutrophils Percent Auto 77.5 % (45.5-73.1); Platelet Count Result 367 k/mm3 (150-375); Red Blood Count 2.07 M/mm3 (4.6-6.20); Red Cell Distribution Width 16.2 % (11.5-14.5); White Blood Count 7.4 K/mm3 (4.5-10.0)
[2023-02-18 16:07] LABS: Alanine Aminotransferase 18 U/L (6-50); Albumin Level 3.2 g/dL (3.5-5.1); Alkaline Phosphatase 77 U/L (38-126); Anion Gap 8 mmol/L (8-16); Aspartate Amino Transferase 32 U/L (17-59); Bilirubin,Total 0.6 mg/dL (0.2-1.3); Blood Urea Nitrogen 48 mg/dL (9-20); Calcium 7.7 mg/dL (8.4-10.2); Carbon Dioxide 23 mmol/L (22-30); Chloride 107 mmol/L (98-107); Estimated CRCL calculation 18 ml/min; Estimated Glomerular Filt Rate 18; Glucose 282 mg/dL (65-110); Magnesium 1.8 mg/dL (1.6-2.3); Phosphorus 4.3 mg/dL (2.5-4.5); Potassium 5.1 mmol/L (3.4-5.0); Sodium 138 mmol/L (137-145)
[2023-02-18 16:11] LABS: Beta-Hydroxybutyrate/Acetoacetate 0.52 mmol/L (0.02-0.27)
[2023-02-18 16:16] LABS: Appearance Urine Cloudy (Clear); Bacteria Urine None Seen /hpf; Bilirubin Urine Negative (Negative); Blood Urine Trace (Negative); Color Urine Yellow (Yellow); Glucose Urine UA 2+ mg/dL (Negative); Granular Casts Urine Present /lpf; Ketones Urine Negative (Negative); Leukocyte Esterase Ur Negative LEU/UL (Negative); Nitrate Urine Negative (Negative); Non Pathogenic Casts >20; Protein Urine 4+ mg/dL (Negative); RBC Urine 0-2 /hpf (0-2); Specific Grav Ur 1.019 (1.001-1.035); Squamous Epithelial Cell Urine Few /hpf (Few); WBC Urine 0-5 /hpf; pH Urine 5.5 (5.0-9.0)
[2023-02-18 16:20] LABS: Add Urine Microscopic? YES
[2023-02-18 16:31] LABS: Platelet Estimate Adequate (Adequate); Poikilocytosis 1+ (NORMAL); Polychromasia 1+ (NORMAL)
[2023-02-18 16:32] LABS: Anisocytosis 1+ (NORMAL); Basophilic Stippling 1+ (NORMAL); Schistocytes Rare (NORMAL)
[2023-02-18 16:38] LABS: NT Pro B Type Natriuretic Pept 26600 pg/mL (19.9-100)
[2023-02-18 18:09] LABS: Troponin I 0.015 ng/mL (0.000-0.034)
--- NOTE | 2023-02-18 18:10 | PM.IMHP ---
H&P: HPI History of Present Illness Date/Time: 02/18/23 18:10 Chief Complaint: Short of breath Narrative: 77-year-old gentleman with history of type 2 diabetes on insulin, disorder heart failure, CKD, COPD, TELMA on CPAP, presented ED with a chief complaint of short of breath. Patient had a fall on the right hip, sustained right hip pain. Patient has restrictive move on the right hip because of pain. Repeated the x-rays has rule out fracture per patient and patient's statement. In today patient has worsening short breast, patient tried to use CPAP during the day to have with short of breath, but it did not work. Therefore patient came to ED for evaluation in the ED, patient was found to have red leg swelling. Patient states he noticed right leg swelling about a week ago. Patient denied chest pain, cough, fever, chills, abdominal pain, black emesis, black stool, red blood per rectum. Last bowel movement was 4 days ago. In the ED, patient was found have elevated BUN creatinine above baseline, anemia hemoglobin 7.6 close to baseline. Suspecting DVT and PE, V/Q scan was ordered, a patient also received Lovenox 1 milligram/kilos x1 in the ED. we admit patient for further evaluation and management. . [facility] Past Medical History Medical History (Updated 02/18/23 @ 18:26 by Luis Enrique Patel MD) Arthritis Chronic anemia Chronic kidney disease Chronic obstructive pulmonary disease Depression Diabetic peripheral neuropathy Diastolic congestive heart failure Hypertension Insulin dependent diabetes mellitus Obstructive sleep apnea Strain of right hip and thigh Surgical History Surgical History History of cholecystectomy History of foot surgery History of penile implant Family History Family History Father Cancer Diabetes mellitus Mother Hyperlipidemia Hypertension Heart attack Sibling Hx of CABG Colon cancer Social History Social History Social History: Surrogate medical decision maker: Palmira Worthington, granddaughter. Code status: Full code. Smoking packs per day: 1 Smoking cigarettes per day: 20.0 Smoking status: Former smoker Tobacco type: cigarettes Second hand tobacco smoke exposure: No Alcohol intake: current Drinks per week: 1 Alcohol use details: Occasional glass a wine though rare. Substance use: unknown Substance use type: does not use Lack of Transportation: No Lack of Food: Never True Current Housing: I Have Housing Concerned About Future Housing: No Difficulty Paying Gas/Electric Bills: No Difficulty Paying for Meds: No Currently Unemployed: No Education: High School Diploma/GED Difficulty w/ Childcare or Family Care: No Living arrangements: with family Occupation/Education: retired Additional occupation/education comments: Retired from [employer]. Spiritual care concerns: No Meds Home Medications and Allergies Home Medications Medication Instructions Recorded Confirmed Type aspirin 81 mg chewable tablet 81 mg PO DAILY@0800 #30 tabs 11/22/22 01/30/23 Rx (Children's Aspirin) bupropion HCl 75 mg tablet 75 mg PO Q12HR #60 tabs 11/22/22 01/30/23 Rx calcium carbonate 500 mg-vitamin 1 tablet PO DAILY@0800 #30 tabs 11/22/22 01/30/23 Rx D3 5 mcg (200 unit) tablet (Oyster Shell Calcium-Vitamin D3) ropinirole 0.5 mg tablet 0.5 mg PO HS #30 tabs 11/22/22 01/30/23 Rx sertraline 50 mg tablet (Zoloft) 25 mg PO QAM #30 tabs 11/22/22 01/30/23 Rx carvedilol 12.5 mg tablet (Coreg) 25 mg PO Q12HR 11/27/22 01/30/23 History gabapentin 100 mg capsule 100 mg PO BID 11/27/22 01/30/23 History insulin glargine 100 unit/mL (3 22 unit subcut QPM 01/13/23 01/30/23 History mL) subcutaneous pen (Lantus Solostar U-100 Insulin) insulin lispro 100 unit/mL 10 unit subcut TIDWM 01/13/2301/12
[2023-02-18] MEDS: ENOXAPARIN 100 MG/ML SYRINGE 95 MG SUB-Q (18:54)
[2023-02-18 20:27] LABS: Glucose Point of Care 248 mg/dl (65-105)
--- NOTE | 2023-02-18 20:38 | ADMGEN ---
This patient, Kenneth Powers, was admitted to IMU Room 203-01 on 02/18/23 at 1999. Patient/family oriented to hospital policies and general routines including ID bracelet, bed and alarms, visiting hours, pain management, procedures, bathroom and other care routines, personal items, smoking policy, room service/diet, and visiting hours. Information on how to activate the Rapid Response Team has been discussed. Patient/Family are encouraged to report perceived risks to care and to ask questions if they do not understand what they are told or what they should do.
[2023-02-18] MEDS: hydrALAZINE HCL 20 MG/ML VIAL 10 MG IV PUSH (22:32)
[2023-02-18] MEDS: INSULIN ASPART (*BKC) 100 UNITS/ML SUB-Q (22:36)
[2023-02-19] VITALS (17 sets, daily range): BP systolic 135–178; BP diastolic 55–78; PULSE 59–80; RESP 16–22; TEMP 35.9–36.6; O2SAT 89–98
--- NOTE | 2023-02-19 | ECHO_ITS ---
Patient Info Name: Kenneth Powers Age: 77 years : 1945 Gender: Male Ht: 71 in Wt: 206 lbs BSA: 2.18 m2 HR: 59 bpm BP: 156 / 62 mmHg Heart Rhythm: Sinus Rhythm Technical Quality: Fair Exam Date: 02/19/2023 9:28 AM Exam Location: [facility] Patient Status: Inpatient Admit Date: 02/18/2023 Staff Ordering Physician: Luis Enrique Patel MD Nutrition Professor: Montserrat Hilario RDCS Attending Provider: Luis Enrique Patel MD Exam Type: CA echo dop color flow w con Study Info Indications - DIZZINESS Complete two-dimensional, color flow and Doppler transthoracic echocardiogram is performed with contrast to opacify the left ventricle and to improve the deliniation of the left ventricle endocardial borders. Contrast/Agitated Saline Contrast/Ag. Saline: Definity Amount: 3.00 ml Administered By: Montserrat Hilario RDCS Existing IV Access: Yes IV Access Condition: patent with no signs of infiltration Summary 1. Definity contrast injected to improve visualization. 2. Normal left ventricular systolic function with grade 2 diastolic noncompliance. 3. Enlarged left atrium. 4. Trivial MR. Left Ventricle Left ventricular chamber dimension is normal. Left ventricular systolic function is normal, estimated at 50-55%. The left ventricular diastolic function is grade II diastolic dysfunction. Right Ventricle Right ventricular chamber dimension is normal. Left Atria Left atrial chamber dimension is moderately enlarged. Right Atria Right atrial chamber dimension is normal. Aortic Valve The aortic valve is trileaflet. There is mild aortic valve sclerosis. Pulmonic Valve The pulmonic valve is not well visualized. Mitral Valve The mitral valve has normal leaflets. There is trace mitral valve regurgitation. Tricuspid Valve The tricuspid valve leaflets are normal. Pericardium/Pleural The pericardium appears normal. Aorta The aortic root size at the sinus of Valsalva is normal. Left Ventricular Outflow Tract Name Value Normal LVOT 2D LVOT Diameter 2.03 cm LVOT Doppler LVOT Peak Gradient 2 mmHg LVOT Mean Gradient 1 mmHg LVOT VTI 18.08 cm LVOT VTI/AV VTI Ratio 0.50 LVOT Stroke Volume 58.74 ml LVOT CO 3.82 l/min LVOT CI 1.75 L/min/m2 Pulmonic Valve Name Value Normal RVOT Doppler RVOT Peak Gradient 1 mmHg PV Doppler PV Peak Gradient 4 mmHg Mitral Valve Name Value Normal MV Doppler
[2023-02-19] MEDS: GABAPENTIN 100 MG CAPSULE PO ×3 (03:08→18:11)
[2023-02-19] MEDS: carvediloL 25 MG TABLET PO ×3 (03:09→20:42)
[2023-02-19] MEDS: INSULIN GLARGINE (*BKC) 100 UNITS/ML 22 UNITS SUB-Q ×2 (03:09→18:11)
--- NOTE | 2023-02-19 08:07 | PM.IMPN ---
Progress Note: A&P Assessment and Plan (1) Hypertensive urgency: Code(s): I16.0 - Hypertensive urgency Status: Acute (2) Leg swelling: Code(s): M79.89 - Other specified soft tissue disorders Status: Acute (3) Acute on chronic renal failure: Code(s): N17.9 - Acute kidney failure, unspecified; N18.9 - Chronic kidney disease, unspecified Status: Acute (4) Obstructive sleep apnea: Code(s): G47.33 - Obstructive sleep apnea (adult) (pediatric) Status: Acute (5) Chronic kidney disease: Qualifiers: Chronic kidney disease stage: stage 3 (moderate) Chronic kidney disease stage 3 subtype: stage 3b (GFR 30-44) Qualified Code(s): N18.32 - Chronic kidney disease, stage 3b Code(s): N18.9 - Chronic kidney disease, unspecified Status: Chronic (6) Diastolic congestive heart failure: Qualifiers: Heart failure chronicity: chronic Qualified Code(s): I50.32 - Chronic diastolic (congestive) heart failure Code(s): I50.30 - Unspecified diastolic (congestive) heart failure Status: Chronic (7) Chronic anemia: Code(s): D64.9 - Anemia, unspecified Status: Acute (8) COPD (chronic obstructive pulmonary disease): Qualifiers: COPD type: unspecified COPD Qualified Code(s): J44.9 - Chronic obstructive pulmonary disease, unspecified Code(s): J44.9 - Chronic obstructive pulmonary disease, unspecified Status: Chronic (9) Uncontrolled type 2 diabetes circulatory disorder erectile dysfunction: Status: Acute Plan Shortness of breath High risk of PE, and DVT, given recent fall and right leg swelling Receive Lovenox 1 milligram/kilos x1 in the ED, follow-up venous Doppler right lower extremity, V/Q scan V/Q scan suggests low to intermediate risk, well-nourished over shows no DVT Shortness breath is improving Consult PT OT for evaluation History of CHF Lungs clear, pending echocardiogram report Hypertension urgency Start amlodipine 10 mg daily p.o., hydrochlorothiazide 25 mg daily p.o. Start hydralazine 10 mg IV push q.4 hours as needed if systolic above 160 or diastolic above 100 Because of worsening kidney function, hold lisinopril VISHNU on CKD Likely secondary to uncontrolled hypertension and uncontrolled diabetes Follow urinalysis Avoid nephrotoxic medication Follow-up BMP Type 2 diabetes on insulin Uncontrolled type 2 diabetes due to noncompliance with medication Started ISS q.a.c. q.h.s. c. q.h.s. Glucose is better controlled today, OPTIMIZE MEDICATION FOR BETTER GLUCOSE CONTROL Current Continue Protonix 40 mg daily p.o. TELMA Continue CPAP Patient may stay more than 2 minute in hospital Subjective Date/time seen: 02/19/23 08:07 Interval history: Patient feels better today, denies dyspnea, no new issue even overnight Exam Narrative: GENERAL: Pleasant, in no acute distress. Well-nourished. - EYES: EOMI. Anicteric. - HENT: Moist mucous membranes. - LUNGS: Clear to auscultation bilaterally, no wheezing, rhonchi, or rales. - CARDIOVASCULAR: Regular rate and rhythm. No murmur. No JVD. - ABDOMEN: Soft, non-tender and non-distended. No palpable masses. - EXTREMITIES: 2+ rt lower extremity edema. Peripheral pulses 2+. Non-tender. - NEUROLOGIC: No focal neurological deficits. CN II-XII grossly intact. - PSYCHIATRIC: Awake, Alert and oriented x 3. Appropriate mood and affect. - SKIN: No rashes or lesions. Warm. - LYMPH: No cervical lymphadenopathy. Objective Data Vital Signs Vital Signs: Vital Signs - 24 hr 02/18/23 15:20 02/18/23 16:07 02/18/23 16:07 Temperature 98.0 F Pulse Rate 64 Respiratory Rate 20 Blood Pressure 185/68 H Pulse Oximetry 97 95 87 L Oxygen Delivery Room Air Nasal Cannula Room Air Oxygen Flow Rate 2 02/18/23 16:35 02/18/23 16:52 02/18/23 17:00 Temperature Pulse Rate 67 Respiratory Rate 17 Blood Pressure Pulse Oximetry
[2023-02-19 08:49] LABS: Glucose Point of Care 139 mg/dl (65-105)
[2023-02-19] MEDS: PANTOPRAZOLE 40 MG TABLET PO (08:55)
[2023-02-19] MEDS: ASPIRIN 81 MG CHEWABLE TABLET PO (08:55)
[2023-02-19] MEDS: hydroCHLOROthiazide 25 MG TABLET PO (08:56)
[2023-02-19] MEDS: amLODIPine BESYLATE 5 MG TABLET 10 MG PO (08:56)
[2023-02-19] MEDS: buPROPion HCL 75 MG TABLET PO ×2 (08:56→20:42)
[2023-02-19] MEDS: SERTRALINE HCL 25 MG TABLET PO (08:56)
[2023-02-19] MEDS: PERFLUTREN LIPID MICROSPHERES 1.5 ML VIAL DILUTED TO 10 ML TOTAL VOLUME IV PUSH (10:00)
[2023-02-19 12:52] LABS: Glucose Point of Care 136 mg/dl (65-105)
--- NOTE | 2023-02-19 13:13 | IVDEFINITY ---
Prior to administration of IV Definity the patient was educated on the risks and benefits of the imaging enhancing agent including potential adverse side effects. The patient verbalized understanding. Allergies were verified. No exclusion criteria were identified and at least one of the following inclusion criteria were met: 1) physician request, 2) patient technically difficult to image (per the [place] [employer] guidelines of two or more segments not discernable within the apical view), or 3) questionable left ventricular function. ?
[2023-02-19] MEDS: hydrALAZINE HCL 20 MG/ML VIAL 10 MG IV PUSH ×2 (13:30→18:16)
--- NOTE | 2023-02-19 13:31 | PCCCNOTE ---
On 02/19/23, the student, [Sangita Elliott], provided care and completed [facility] on this patient. I have reviewed the student's documentation and agree with the findings.
[2023-02-19 17:11] LABS: Glucose Point of Care 152 mg/dl (65-105)
[2023-02-19 20:32] LABS: Glucose Point of Care 179 mg/dl (65-105)
[2023-02-19] MEDS: rOPINIRole HCL 0.5 MG TABLET PO (20:42)
[2023-02-20] VITALS (25 sets, daily range): BP systolic 138–161; BP diastolic 51–93; PULSE 55–80; RESP 16–24; TEMP 35.6–36.6; O2SAT 88–100
[2023-02-20 05:03] LABS: Basophils Absolute Auto 0.1 K/mm3 (0.0-0.1); Basophils Percent Auto 0.9 % (0.2-1.2); Eosinophils Absolute Auto 0.5 K/mm3 (0-0.3); Hematocrit 22.1 % (42.0-52.0); Immature Granulocyte Absolute 0.06 K/mm3 (0.00-0.031); Immature Granulocyte Percent A 0.8 % (0-0.5); Lymphocytes Absolute Auto 0.97 K/mm3 (0.9-3.2); Lymphocytes Percent Auto 12.8 % (18.3-44.2); Mean Corpuscular HGB Conc 31.2 g/dl (32-36); Mean Corpuscular Hemoglobin 35.4 pg (26-34); Mean Corpuscular Volume 113.3 fl (80-100); Mean Platelet Volume 10.6 fl (7.4-10.4); Monocytes Absolute Auto 0.7 K/mm3 (0.1-0.6); Monocytes Percent Auto 8.7 % (2.6-8.5); Neutrophils Absolute Auto 5.3 K/mm3 (1.3-6.7); Neutrophils Percent Auto 69.8 % (45.5-73.1); Platelet Count Result 356 k/mm3 (150-375); Red Blood Count 1.95 M/mm3 (4.6-6.20); Red Cell Distribution Width 16.3 % (11.5-14.5); White Blood Count 7.6 K/mm3 (4.5-10.0)
[2023-02-20 05:07] LABS: Hemoglobin 6.9 g/dL (14.0-18.0)
[2023-02-20 05:12] LABS: Anion Gap 0 mmol/L (8-16); Blood Urea Nitrogen 48 mg/dL (9-20); Calcium 7.4 mg/dL (8.4-10.2); Carbon Dioxide 29 mmol/L (22-30); Chloride 109 mmol/L (98-107); Estimated CRCL calculation 17 ml/min; Estimated Glomerular Filt Rate 17; Glucose 113 mg/dL (65-110); Potassium 4.5 mmol/L (3.4-5.0); Sodium 138 mmol/L (137-145)
[2023-02-20 05:41] LABS: Macrocytosis 1+ (NORMAL); Platelet Estimate Adequate (Adequate)
[2023-02-20 05:42] LABS: Anisocytosis 1+ (NORMAL); Schistocytes None Seen (NORMAL)
[2023-02-20 07:57] LABS: Glucose Point of Care 67 mg/dl (65-105)
[2023-02-20] MEDS: MECLIZINE HCL 12.5 MG TABLET PO (08:35)
[2023-02-20] MEDS: GABAPENTIN 100 MG CAPSULE PO ×2 (08:35→17:02)
[2023-02-20] MEDS: amLODIPine BESYLATE 5 MG TABLET 10 MG PO (08:35)
[2023-02-20] MEDS: buPROPion HCL 75 MG TABLET PO ×2 (08:35→20:47)
[2023-02-20] MEDS: ASPIRIN 81 MG CHEWABLE TABLET PO (08:35)
[2023-02-20] MEDS: carvediloL 25 MG TABLET PO ×2 (08:35→20:46)
[2023-02-20] MEDS: hydroCHLOROthiazide 25 MG TABLET PO (08:35)
[2023-02-20] MEDS: SERTRALINE HCL 25 MG TABLET PO (08:36)
[2023-02-20] MEDS: SODIUM CHLORIDE 0.9% IV 250 ML 30 ML IV CONT (09:50)
--- NOTE | 2023-02-20 10:06 | PCOTNOTE ---
Per. nursing, request to evaluate pt. at later time, as pt. is about to receive unit of blood and hemoglobin is low at this time. Following.
[2023-02-20] MEDS: TUBING, BLOOD PLUM PUMP TUBING 1 EACH XX (10:33)
[2023-02-20] MEDS: INSULIN ASPART (*BKC) 100 UNITS/ML 10 UNITS SUB-Q (12:05)
[2023-02-20 12:14] LABS: Glucose Point of Care 157 mg/dl (65-105)
--- NOTE | 2023-02-20 13:36 | PC.NURSE ---
This patient, Kenneth Powers, was transferred to [[facility] ] on 02/20/23 at 1330. Personal belongings sent with patient. Report given to [ Francheska]. Appropriate documentation sent with patient.
--- NOTE | 2023-02-20 13:36 | PM.IMPN ---
Progress Note: A&P Assessment and Plan (1) Acute respiratory failure with hypoxia: Code(s): J96.01 - Acute respiratory failure with hypoxia Status: Acute (2) CHF exacerbation: Qualifiers: Heart failure type: unspecified Qualified Code(s): I50.9 - Heart failure, unspecified Code(s): I50.9 - Heart failure, unspecified Status: Acute (3) Anemia, macrocytic: Code(s): D53.9 - Nutritional anemia, unspecified Status: Acute (4) Hypokalemia: Code(s): E87.6 - Hypokalemia Status: Acute (5) Uncontrolled type 2 diabetes circulatory disorder erectile dysfunction: Status: Acute (6) Acute on chronic renal failure: Code(s): N17.9 - Acute kidney failure, unspecified; N18.9 - Chronic kidney disease, unspecified Status: Acute Plan Shortness of breath High risk of PE, and DVT, given recent fall and right leg swelling Receive Lovenox 1 milligram/kilos x1 in the ED, follow-up venous Doppler right lower extremity, V/Q scan V/Q scan suggests low to intermediate risk, well-nourished over shows no DVT Shortness breath is improving maybe related to anemia pt receiving blood today Consult PT OT for evaluation Can transfer to medical floor today History of CHF Lungs clear, pending echocardiogram report Hypertension urgency Start amlodipine 10 mg daily p.o., hydrochlorothiazide 25 mg daily p.o. Start hydralazine 10 mg IV push q.4 hours as needed if systolic above 160 or diastolic above 100 Because of worsening kidney function, hold lisinopril Bp is stable today VISHNU on CKD Likely secondary to uncontrolled hypertension and uncontrolled diabetes Follow urinalysis and BMP Type 2 diabetes on insulin Uncontrolled type 2 diabetes due to noncompliance with medication Started ISS q.a.c. q.h.s. c. q.h.s. Current Continue Protonix 40 mg daily p.o. TELAM Continue CPAP Subjective Date/time seen: 02/20/23 13:36 Interval history: 77-year-old gentleman with history of type 2 diabetes on insulin, disorder heart failure, CKD, COPD, TELMA on CPAP, presented ED with a chief complaint of short of breath.? Patient had a fall on the right hip,? sustained right hip pain.? Pt having hb of 6.9 today tranfuse blood and start therapy today Review of Systems Review of Systems: SOB, weakness and fall Objective Data Vital Signs Vital Signs: Vital Signs - 24 hr 02/19/23 14:00 02/19/23 16:00 02/19/23 16:00 Temperature Pulse Rate 80 59 L Respiratory Rate Blood Pressure Pulse Oximetry Oxygen Delivery Room Air Oxygen Flow Rate Fraction of Inspired Oxygen 02/19/23 16:00 02/19/23 18:00 02/19/23 20:00 Temperature 36.5 C 36.6 C Pulse Rate 76 67 80 Respiratory Rate 20 20 Blood Pressure 164/66 H 135/55 L Pulse Oximetry 91 93 Oxygen Delivery Oxygen Flow Rate Fraction of Inspired Oxygen 02/19/23 20:00 02/19/23 20:42 02/19/23 20:00 Temperature Pulse Rate 80 79 79 Respiratory Rate 20 Blood Pressure Pulse Oximetry 93 Oxygen Delivery Room Air Oxygen Flow Rate Fraction of Inspired Oxygen 02/19/23 23:33 02/19/23 22:00 02/20/23 00:00 Temperature 36.3 C L Pulse Rate 59 L 60 59 L Respiratory Rate 20 20 Blood Pressure 144/55 H Pulse Oximetry 89 L 95 Oxygen Delivery Nasal Cannula Oxygen Flow Rate 2 Fraction of Inspired Oxygen 02/20/23 00:00 02/20/23 02:00 02/20/23 04:07 Temperature 36.3 C L Pulse Rate 76 57 L 76 Respiratory Rate 18 Blood Pressure 155/93 H Pulse Oximetry 93 Oxygen Delivery Oxygen Flow Rate Fraction of Inspired Oxygen 02/20/23 04:00 02/20/23 04:00 02/20/23 06:00 Temperature Pulse Rate 76 76 76 Respiratory Rate 18 Blood Pressure Pulse Oximetry 93 Oxygen Delivery Nasal Cannula Oxygen Flow Rate 2 Fraction of Inspired Oxygen 02/20/23 07:58 02/20/23 08:09 02/20/23 08:35 Temperature 35.9 C L Pulse Rate 56 L 76
--- NOTE | 2023-02-20 13:39 | PC.NURSE ---
This patient, Kenneth Powers, was received from [imu] on 02/20/23 at 1330. Patient/family oriented to unit policies and routines. Report from Jayne
--- NOTE | 2023-02-20 14:51 | PCOTNOTE ---
Attempted to see for OT evaluation. Patient receiving another unit of blood. Will continue to attempt.
[2023-02-20 16:27] LABS: Glucose Point of Care 103 mg/dl (65-105)
--- NOTE | 2023-02-20 16:45 | PM.CNNEP ---
Assessment and Plan Assessment and plan (1) VISHNU (acute kidney injury): Code(s): N17.9 - Acute kidney failure, unspecified Status: Acute Assessment and Plan: as noted by trend of labs since admission several issues: relative anemia HTN urgency poor glycemic control prerenal factors CKD progression (?) ATN (granular casts noted on admission UA) check renal ultrasound and urine studies follow trend of repeat labs and UOP (2) Chronic kidney disease, stage IV (severe): Code(s): N18.4 - Chronic kidney disease, stage 4 (severe) Status: Acute Assessment and Plan: creatinine ~ 1.9 - 2.5mg/dl on last hospitalization however, unclear what it is running as an outpatient will try to obtain records from Dr. Ny office suspect due to HTN, DM, vascular disease, and age-related change (3) Anemia: Code(s): D64.9 - Anemia, unspecified Status: Chronic Assessment and Plan: appears to be a chronic issue suspect related to underlying CKD PRBC transfusion per protocol likely benefit from SALLY follow trend of H/H (4) Hypertension: Qualifiers: Hypertension type: primary hypertension Qualified Code(s): I10 - Essential (primary) hypertension Code(s): I10 - Essential (primary) hypertension Status: Chronic Assessment and Plan: better control at this time continue current medications LAUREN-I on hold due to #1 follow trend of hemodynamics (5) Diabetes mellitus with chronic kidney disease: Code(s): E11.22 - Type 2 diabetes mellitus with diabetic chronic kidney disease Status: Chronic Assessment and Plan: recent poor control prior to admission follow accu-cheks glycemic control per hospitalisits I will continue follow patient with you while remains hospitalized to make further recommendations as needed. Thank you for allowing me to participate in the care of this patient. History of Present Illness Reason for Consult Consult date: 02/20/23 Reason for consult: acute renal failure (on chronic kidney disease) Chief Complaint Chief complaint: Acute hypoxic respiratory failure History of Present Illness Narrative: The patient is a 77-year-old male with a past medical history as outlined below who presented to [facility] Emergency room for further evaluation of hyperglycemia. His apparently checked his blood sugar when he was sitting in the chair using PEEP Pap as he did not seem to be as responsive as he should be. The glucometer reading was apparently greater than 500. Apparently, his glucometer had not been working right for last few days so he has not been checking his blood sugar. Was not realize how high his blood sugar was until his checked it and she subsequently brought him into the ER for further evaluation. Upon further questioning to the patient, he also reports that this bite being on CPAP, he has been feeling more short of breath than usual. He thinks this is going on for last 1-2 days as well. He reports shortness of breath is worse with laying flat and with exertional activities. He denied any cough or congestion, chest pain, abdominal pain, nausea vomiting, or any other subjective symptoms. Workup and evaluation in the emergency room demonstrated the patient to be in no acute distress but clearly with evidence of shortness of breath. He was quite hypertensive and apparently hypoxic but his hypoxia improved with application of 2 L of supplemental oxygen. Routine blood test demonstrated relative anemia and what appeared to be acute kidney injury on top of his baseline chronic kidney disease. Furthermore, his exam was significant for a right lower extremity more swollen than left with concern for possible DVT. He was given medications for his blood pressure and started on anticoagulation on the concern for possible DVT and possible PE as an etiology for his shortness of br
[2023-02-20] MEDS: INSULIN GLARGINE (*BKC) 100 UNITS/ML 22 UNITS SUB-Q (17:08)
[2023-02-20 19:28] LABS: Hematocrit 27.6 % (42.0-52.0); Hemoglobin 8.9 g/dL (14.0-18.0)
--- NOTE | 2023-02-20 19:47 | PC.NURSE ---
hemoglobin up to 8.9 after transfusion
[2023-02-20] MEDS: MELATONIN 3 MG TABLET PO (20:46)
[2023-02-20] MEDS: rOPINIRole HCL 0.5 MG TABLET PO (20:47)
[2023-02-20 20:54] LABS: Glucose Point of Care 149 mg/dl (65-105)
[2023-02-21] VITALS (7 sets, daily range): BP systolic 134–150; BP diastolic 55–68; PULSE 51–77; RESP 16; TEMP 36.1–36.7; O2SAT 90–97
[2023-02-21 06:46] LABS: Hematocrit 27.9 % (42.0-52.0); Hemoglobin 8.9 g/dL (14.0-18.0); Mean Corpuscular HGB Conc 31.9 g/dl (32-36); Mean Corpuscular Hemoglobin 33.7 pg (26-34); Mean Corpuscular Volume 105.7 fl (80-100); Mean Platelet Volume 10.3 fl (7.4-10.4); Platelet Count Result 370 k/mm3 (150-375); Red Blood Count 2.64 M/mm3 (4.6-6.20); Red Cell Distribution Width 21.1 % (11.5-14.5); White Blood Count 8.4 K/mm3 (4.5-10.0)
[2023-02-21 06:51] LABS: Carbon Dioxide 27 mmol/L (22-30); Chloride 109 mmol/L (98-107); Potassium 4.8 mmol/L (3.4-5.0); Sodium 139 mmol/L (137-145)
[2023-02-21 06:52] LABS: Anion Gap 3 mmol/L (8-16); Blood Urea Nitrogen 48 mg/dL (9-20); Calcium 7.4 mg/dL (8.4-10.2); Estimated CRCL calculation 18 ml/min; Estimated Glomerular Filt Rate 18; Glucose 49 mg/dL (65-110)
--- NOTE | 2023-02-21 06:55 | PC.NURSE ---
juice x2 given start hypoglycemic protocol
[2023-02-21 07:03] LABS: Glucose Point of Care 78 mg/dl (65-105)
[2023-02-21 07:31] LABS: Glucose Point of Care 76 mg/dl (65-105)
[2023-02-21] MEDS: hydroCHLOROthiazide 25 MG TABLET PO (08:16)
[2023-02-21] MEDS: GABAPENTIN 100 MG CAPSULE PO ×2 (08:16→17:39)
[2023-02-21] MEDS: carvediloL 25 MG TABLET PO ×2 (08:16→20:30)
[2023-02-21] MEDS: ASPIRIN 81 MG CHEWABLE TABLET PO (08:17)
[2023-02-21] MEDS: amLODIPine BESYLATE 5 MG TABLET 10 MG PO (08:17)
[2023-02-21] MEDS: PANTOPRAZOLE 40 MG TABLET PO (08:17)
[2023-02-21] MEDS: buPROPion HCL 75 MG TABLET PO ×2 (08:17→20:30)
[2023-02-21] MEDS: SERTRALINE HCL 25 MG TABLET PO (08:17)
--- NOTE | 2023-02-21 11:05 | PM.IMPN ---
Progress Note: A&P Assessment and Plan (1) Acute respiratory failure with hypoxia: Code(s): J96.01 - Acute respiratory failure with hypoxia Status: Acute (2) CHF exacerbation: Qualifiers: Heart failure type: unspecified Qualified Code(s): I50.9 - Heart failure, unspecified Code(s): I50.9 - Heart failure, unspecified Status: Acute (3) Anemia, macrocytic: Code(s): D53.9 - Nutritional anemia, unspecified Status: Acute (4) Hypokalemia: Code(s): E87.6 - Hypokalemia Status: Acute (5) Uncontrolled type 2 diabetes circulatory disorder erectile dysfunction: Status: Acute (6) Acute on chronic renal failure: Code(s): N17.9 - Acute kidney failure, unspecified; N18.9 - Chronic kidney disease, unspecified Status: Acute Plan Shortness of breath High risk of PE, and DVT, given recent fall and right leg swelling Receive Lovenox 1 milligram/kilos x1 in the ED, follow-up venous Doppler right lower extremity, V/Q scan V/Q scan suggests low to intermediate risk, well-nourished over shows no DVT Shortness breath is improving maybe related to anemia pt receiving blood today Consult PT OT for evaluation Can transfer to medical floor today History of CHF Lungs clear, pending echocardiogram report Hypertension urgency Start amlodipine 10 mg daily p.o., hydrochlorothiazide 25 mg daily p.o. Start hydralazine 10 mg IV push q.4 hours as needed if systolic above 160 or diastolic above 100 Because of worsening kidney function, hold lisinopril Bp is stable today VISHNU on CKD Likely secondary to uncontrolled hypertension and uncontrolled diabetes Follow urinalysis and BMP Type 2 diabetes on insulin Uncontrolled type 2 diabetes due to noncompliance with medication Started ISS q.a.c. q.h.s. c. q.h.s. Current Continue Protonix 40 mg daily p.o. TELMA Continue CPAP Subjective Date/time seen: 02/21/23 11:05 Interval history: No new complaints. Exam Narrative: GENERAL: Pleasant, in no acute distress. Well-nourished. - EYES: EOMI. Anicteric. - HENT: Moist mucous membranes. - LUNGS: Clear to auscultation bilaterally, no wheezing, rhonchi, or rales. - CARDIOVASCULAR: Regular rate and rhythm. No murmur. No JVD. - ABDOMEN: Soft, non-tender and non-distended. No palpable masses. - EXTREMITIES: 2+ rt lower extremity edema. Peripheral pulses 2+. Non-tender. - NEUROLOGIC: No focal neurological deficits. CN II-XII grossly intact. - PSYCHIATRIC: Awake, Alert and oriented x 3. Appropriate mood and affect. - SKIN: No rashes or lesions. Warm. - LYMPH: No cervical lymphadenopathy. Objective Data Vital Signs Vital Signs: Vital Signs - 24 hr 02/20/23 11:59 02/20/23 12:00 02/20/23 12:42 Temperature 96.3 F L 96.7 F L 96.3 F L Pulse Rate 74 75 58 L Respiratory Rate 24 H 20 16 Blood Pressure 146/76 H 145/65 H 144/57 H Pulse Oximetry 93 91 90 Oxygen Delivery 02/20/23 14:15 02/20/23 14:30 02/20/23 14:00 Temperature 97.2 F L 97.5 F L 97.2 F L Pulse Rate 78 60 78 Respiratory Rate 18 16 18 Blood Pressure 147/75 H 151/64 H 147/75 H Pulse Oximetry 92 92 92 Oxygen Delivery 02/20/23 15:30 02/20/23 15:45 02/20/23 16:30 Temperature 97.7 F 97.6 F Pulse Rate 55 L 60 Respiratory Rate 18 16 Blood Pressure 146/63 H 154/81 H Pulse Oximetry 91 91 95 Oxygen Delivery Room Air 02/20/23 20:46 02/20/23 20:40 02/20/23 23:37 Temperature 97.8 F Pulse Rate 77 80 Respiratory Rate 16 Blood Pressure 161/70 H 155/68 H Pulse Oximetry 95 Oxygen Delivery 02/21/23 05:01 02/21/23 08:16 02/21/23 09:20 Temperature 97.0 F L Pulse Rate 51 L 58 L Respiratory Rate 16 Blood Pressure 134/55 L Pulse Oximetry 95 Oxygen Delivery Room Air 02/21/23 08:00 Temperature Pulse Rate Respiratory Rate Blood Pressure Pulse Oximetry 90 Oxygen Delivery Room Air Intake/Output Intake/Output: Intake & Output 02/18/23 07
[2023-02-21 11:36] LABS: Glucose Point of Care 212 mg/dl (65-105)
[2023-02-21] MEDS: INSULIN ASPART (*BKC) 100 UNITS/ML SUB-Q ×2 (12:02→17:04)
[2023-02-21] MEDS: INSULIN ASPART (*BKC) 100 UNITS/ML 10 UNITS SUB-Q ×2 (12:03→17:05)
--- NOTE | 2023-02-21 12:44 | PCPTNOTE ---
On 02/21/23, the student, ADRIAN Mon, provided care and completed [facility] documentation on this patient. I have reviewed the student's documentation and agree with the findings.
--- NOTE | 2023-02-21 13:44 | P.PNNP_ITS ---
Progress Note: A&P Assessment and Plan (1) VISHNU (acute kidney injury): Code(s): N17.9 - Acute kidney failure, unspecified Status: Acute Assessment and Plan: * some improvement noted * several issues: * relative anemia * HTN urgency * poor glycemic control * prerenal factors * CKD progression (?) * ATN (granular casts noted on admission UA) * follow-up on urine testing * renal ultrasound (if not already done) * follow trend of repeat labs and UOP (2) Chronic kidney disease, stage IV (severe): Code(s): N18.4 - Chronic kidney disease, stage 4 (severe) Status: Acute Assessment and Plan: * creatinine ~ 1.9 - 2.5mg/dl on last hospitalization * reviewed records from Dr. Lane's office * creatinine has fluctuated to extremes in the last several months * has ranged from 1.8 - 2.7mg/dl * hence, he fluctuates between CKD stage 3 (A and B) and CKD stage 4 * due to HTN, DM, vascular disease, and age-related change (3) Anemia: Code(s): D64.9 - Anemia, unspecified Status: Chronic Assessment and Plan: * appears to be a chronic issue * suspect related to underlying CKD * PRBC transfusion per protocol * likely benefit from SALLY * follow trend of H/H (4) Hypertension: Qualifiers: Hypertension type: primary hypertension Qualified Code(s): I10 - Essential (primary) hypertension Code(s): I10 - Essential (primary) hypertension Status: Chronic Assessment and Plan: * better control at this time * continue current medications * follow trend of hemodynamics (5) Diabetes mellitus with chronic kidney disease: Code(s): E11.22 - Type 2 diabetes mellitus with diabetic chronic kidney disease Status: Chronic Assessment and Plan: * recent poor control prior to admission * follow accu-cheks * glycemic control per hospitalisits Will continue to follow. Subjective Date/time seen: 02/21/23 13:44 Interval history: Follow-up for acute kidney injury/acute renal failure on top of chronic kidney disease. Appears to be doing reasonably well at the time of my visit; renal function/creatinine seems to be a bit better by recent testing; H/H better s/p PRBC transfusion; no apparent distress noted. Exam Narrative: General: elderly but WD/WN male in NAD Heart: normal S1 and S2; no rub Lungs: clear to auscultation Abdomen: soft, nontender, nondistended, positive bowel sounds Extremities: no cyanosis or clubbing; trace edema Skin: warm and dry Objective Data Vital Signs Vital Signs: Vital Signs Temp Pulse Resp BP Pulse Ox O2 Del Method 02/21/23 13:00 97.6 F 71 16 149/67 H 97 02/21/23 08:00 90 Room Air 02/21/23 09:20 Room Air 02/21/23 08:16 58 L 02/21/23 05:01 97.0 F L 51 L 16 134/55 L 95 02/20/23 23:37 155/68 H 02/20/23 20:40 97.8 F 80 16 161/70 H 95 02/20/23 20:46 77 02/20/23 16:30 97.6 F 60 16 154/81 H 95 02/20/23 15:45 91 Room Air Intake/Output Intake/Output: Intake & Output 02/18/23 02/19/23 02/20/23 02/21/23 23:59 23:59 23:59 23:59 Intake Total 2350 2847 1100 Output Total 710 1200 600 Balance 1640 1647 260
--- NOTE | 2023-02-21 13:44 | PM.PNNEP ---
Progress Note: A&P Assessment and Plan (1) VISHNU (acute kidney injury): Code(s): N17.9 - Acute kidney failure, unspecified Status: Acute Assessment and Plan: some improvement noted several issues: relative anemia HTN urgency poor glycemic control prerenal factors CKD progression (?) ATN (granular casts noted on admission UA) follow-up on urine testing renal ultrasound (if not already done) follow trend of repeat labs and UOP (2) Chronic kidney disease, stage IV (severe): Code(s): N18.4 - Chronic kidney disease, stage 4 (severe) Status: Acute Assessment and Plan: creatinine ~ 1.9 - 2.5mg/dl on last hospitalization reviewed records from Dr. Lane's office creatinine has fluctuated to extremes in the last several months has ranged from 1.8 - 2.7mg/dl hence, he fluctuates between CKD stage 3 (A and B) and CKD stage 4 due to HTN, DM, vascular disease, and age-related change (3) Anemia: Code(s): D64.9 - Anemia, unspecified Status: Chronic Assessment and Plan: appears to be a chronic issue suspect related to underlying CKD PRBC transfusion per protocol likely benefit from SALLY follow trend of H/H (4) Hypertension: Qualifiers: Hypertension type: primary hypertension Qualified Code(s): I10 - Essential (primary) hypertension Code(s): I10 - Essential (primary) hypertension Status: Chronic Assessment and Plan: better control at this time continue current medications follow trend of hemodynamics (5) Diabetes mellitus with chronic kidney disease: Code(s): E11.22 - Type 2 diabetes mellitus with diabetic chronic kidney disease Status: Chronic Assessment and Plan: recent poor control prior to admission follow accu-cheks glycemic control per hospitalisits Will continue to follow. Subjective Date/time seen: 02/21/23 13:44 Interval history: Follow-up for acute kidney injury/acute renal failure on top of chronic kidney disease. Appears to be doing reasonably well at the time of my visit; renal function/creatinine seems to be a bit better by recent testing; H/H better s/p PRBC transfusion; no apparent distress noted. Exam Narrative: General: elderly but WD/WN male in NAD Heart: normal S1 and S2; no rub Lungs: clear to auscultation Abdomen: soft, nontender, nondistended, positive bowel sounds Extremities: no cyanosis or clubbing; trace edema Skin: warm and dry Objective Data Vital Signs Vital Signs: Vital Signs Temp Pulse Resp BP Pulse Ox O2 Del Method 02/21/23 13:00 97.6 F 71 16 149/67 H 97 02/21/23 08:00 90 Room Air 02/21/23 09:20 Room Air 02/21/23 08:16 58 L 02/21/23 05:01 97.0 F L 51 L 16 134/55 L 95 02/20/23 23:37 155/68 H 02/20/23 20:40 97.8 F 80 16 161/70 H 95 02/20/23 20:46 77 02/20/23 16:30 97.6 F 60 16 154/81 H 95 02/20/23 15:45 91 Room Air Intake/Output Intake/Output: Intake & Output 02/18/23 02/19/23 02/20/23 02/21/23 23:59 23:59 23:59 23:59 Intake Total 2350 2847 1100 Output Total 710 1200 600 Balance 1640 1647 500 Meds/Results Medications: Active Medications Generic Name Dose Route Start Last Admin Trade Name Freq PRN Reason Stop Dose Admin Acetaminophen 650 mg 02/18/23 18:23 Acetaminophen 325 Mg Tablet PO Q4H PRN Mild Pain (1-3) or Fever Amlodipine Besylate 10 mg 02/19/23 09:00 02/21/23 08:17 Amlodipine Besylate 5 Mg Tablet PO 10 mg QAM LUX Administration Aspirin 81 mg 02/19/23 08:00 02/21/23 08:17 Aspirin 81 Mg Chewable Tablet PO 81 mg DAILY@0800 LUX Administration Bupropion HCl 75 mg 02/19/23 09:00 02/21/23 08:17 Bupropion Hcl 75 Mg Tablet PO 75 mg Q12HR LUX Administration Calcium Carbonate 500 mg 02/19/23 08:00 02/21/23 08:18 Calcium/Vitamin D 500 Mg Tablet PO 500 mg STEFANI
[2023-02-21 16:43] LABS: Glucose Point of Care 226 mg/dl (65-105)
[2023-02-21] MEDS: INSULIN GLARGINE (*BKC) 100 UNITS/ML 22 UNITS SUB-Q (17:31)
[2023-02-21 20:22] LABS: Glucose Point of Care 108 mg/dl (65-105)
[2023-02-21] MEDS: MELATONIN 3 MG TABLET PO (21:33)
[2023-02-21] MEDS: rOPINIRole HCL 0.5 MG TABLET PO (21:33)
[2023-02-22 04:35] VITALS: BP 159/75; PULSE 75; RESP 18; TEMP 36.8; O2SAT 93
--- NOTE | 2023-02-22 06:09 | PC.NURSE ---
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
[2023-02-22 07:38] LABS: Glucose Point of Care 36 mg/dl (65-105)
[2023-02-22 08:00] LABS: Glucose Point of Care 69 mg/dl (65-105)
[2023-02-22 08:18] VITALS: PULSE 75
[2023-02-22] MEDS: GABAPENTIN 100 MG CAPSULE PO (08:18)
[2023-02-22] MEDS: SERTRALINE HCL 25 MG TABLET PO (08:18)
[2023-02-22] MEDS: buPROPion HCL 75 MG TABLET PO (08:18)
[2023-02-22] MEDS: carvediloL 25 MG TABLET PO (08:18)
[2023-02-22] MEDS: ASPIRIN 81 MG CHEWABLE TABLET PO (08:18)
[2023-02-22] MEDS: hydroCHLOROthiazide 25 MG TABLET PO (08:19)
[2023-02-22] MEDS: amLODIPine BESYLATE 5 MG TABLET 10 MG PO (08:19)
[2023-02-22 09:01] LABS: Anion Gap 3 mmol/L (8-16); Blood Urea Nitrogen 51 mg/dL (9-20); Calcium 7.3 mg/dL (8.4-10.2); Carbon Dioxide 29 mmol/L (22-30); Chloride 105 mmol/L (98-107); Estimated CRCL calculation 21 ml/min; Estimated Glomerular Filt Rate 18; Glucose 85 mg/dL (65-110); Potassium 5.2 mmol/L (3.4-5.0); Sodium 137 mmol/L (137-145)
[2023-02-22 11:25] LABS: Glucose Point of Care 225 mg/dl (65-105)
--- NOTE | 2023-02-22 11:50 | PM.DS ---
DS: Admitting Diagnosis Discharge Date February 22, 2023 Admitting Diagnosis Acute kidney injury on kidney disease. Hypoxia DS: Discharge Diagnosis Discharge Diagnosis (1) Acute respiratory failure with hypoxia: Code(s): J96.01 - Acute respiratory failure with hypoxia Status: Acute (2) CHF exacerbation: Qualifiers: Heart failure type: unspecified Qualified Code(s): I50.9 - Heart failure, unspecified Code(s): I50.9 - Heart failure, unspecified Status: Acute (3) Anemia, macrocytic: Code(s): D53.9 - Nutritional anemia, unspecified Status: Acute (4) Hypokalemia: Code(s): E87.6 - Hypokalemia Status: Acute (5) Uncontrolled type 2 diabetes circulatory disorder erectile dysfunction: Status: Acute (6) Acute on chronic renal failure: Code(s): N17.9 - Acute kidney failure, unspecified; N18.9 - Chronic kidney disease, unspecified Status: Acute DS: Summary Hospital Course Hospital Course: Patient was admitted for shortness of breath and hypoxia. By time I had seen the patient he had improved significantly he was back to his baseline. He did have worsening of his kidney function while on the hospital. His ARB has been held and kidney function is slowly improving. He will need to follow up with Nephrology as an outpatient. Otherwise patient is back to his baseline wants to be discharged. He is going to be discharged to acute rehab. Time Spent with Patient Time attestation: Total time spent providing and/or coordinating discharge services: Exam Narrative: GENERAL: Pleasant, in no acute distress. Well-nourished. - EYES: EOMI. Anicteric. - HENT: Moist mucous membranes. - LUNGS: Clear to auscultation bilaterally, no wheezing, rhonchi, or rales. - CARDIOVASCULAR: Regular rate and rhythm. No murmur. No JVD. - ABDOMEN: Soft, non-tender and non-distended. No palpable masses. - EXTREMITIES: 2+ rt lower extremity edema. Peripheral pulses 2+. Non-tender. - NEUROLOGIC: No focal neurological deficits. CN II-XII grossly intact. - PSYCHIATRIC: Awake, Alert and oriented x 3. Appropriate mood and affect. - SKIN: No rashes or lesions. Warm. - LYMPH: No cervical lymphadenopathy. DS: Data Data Completed and Pending Labs on day of discharge: Labs from last 24 hours 02/22/23 02/22/23 02/22/23 11:22 08:42 07:57 Sodium 137 Potassium 5.2 H Chloride 105 Carbon Dioxide 29 Anion Gap 3 L BUN 51 H Creatinine 3.30 H Estim Creat Clear Calc 21 Estimated GFR 18 L Glucose 85 POC Capillary Glucose 225 H 69 Calcium 7.3 L 02/22/23 02/21/23 02/21/23 07:34 20:15 16:40 Sodium Potassium Chloride Carbon Dioxide Anion Gap BUN Creatinine Estim Creat Clear Calc Estimated GFR Glucose POC Capillary Glucose 36 L* 108 H 226 H Calcium Discharge Plan Discharge Attending physician on discharge: Ahmet Manzo Consulting providers: Ferdinand Alvarez Discharging Clinician: Ahmet Manzo Patient Disposition: Inpatient Rehab Facility Activity: as tolerated Diet: as tolerated Patient Instructions: Antibiotic Form, Heart Failure (DC) Stand Alone Forms: General Discharge Information Follow-up/Referrals: Gambino,MD Domingo [Primary Care Provider] - Ferdinand Alvarez MD [Physician] - Discharge Medications: Continued pantoprazole 40 mg tablet,delayed release (DR/EC) 40 mg PO .THREE TIMES WEEKLY Rx Instructions: Pt takes this three times per week on Sunday, Sunday and Sunday. meclizine 12.5 mg tablet 12.5 mg PO TID PRN (Reason: dizziness) Qty: 14 0RF carvedilol [Coreg] 12.5 mg tablet 25 mg PO Q12HR gabapentin 100 mg capsule 100 mg PO BID amlodipine 10 mg tablet 10 mg PO DAILY bupropion HCl 75 mg Tablet 75 mg PO Q12HR Qty: 60 0RF aspirin [Children's Aspirin] 81 mg Tablet,Chewable 81 mg PO DAILY@0800
[2023-02-22] MEDS: INSULIN ASPART (*BKC) 100 UNITS/ML 8 UNITS SUB-Q (11:55)
[2023-02-22] MEDS: INSULIN ASPART (*BKC) 100 UNITS/ML SUB-Q (11:56)
--- NOTE | 2023-02-22 13:25 | PC.NURSE ---
1325 - RN called to give report to [facility]. Stated they will call RN back in 15 - 20 minutes.
== END 2023-02-22 14:30 | DRG 291 ==
LOC: ANHED 16:05 → ANHIMU 19:13 → ANH3MEDSUR 02-20 13:28
PROVIDERS: Family Medicine; Admitting Provider Hospitalist; Emergency Provider Physician Assistant; PCP Hospitalist; Visit Provider Chiropractor
DX: I13.0 Hypertensive heart and chronic kidney disease with heart failure and stage 1 through stage 4 chronic kidney disease, or unspecified chronic kidney disease (principal); I50.33 Acute on chronic diastolic (congestive) heart failure; J96.01 Acute respiratory failure with hypoxia; N17.9 Acute kidney failure, unspecified; N18.4 Chronic kidney disease, stage 4 (severe); E11.65 Type 2 diabetes mellitus with hyperglycemia; E11.22 Type 2 diabetes mellitus with diabetic chronic kidney disease; E11.42 Type 2 diabetes mellitus with diabetic polyneuropathy; E87.6 Hypokalemia; D63.1 Anemia in chronic kidney disease; D53.9 Nutritional anemia, unspecified; I16.0 Hypertensive urgency; J44.9 Chronic obstructive pulmonary disease, unspecified; M19.90 Unspecified osteoarthritis, unspecified site; F32.A Depression, unspecified; G47.33 Obstructive sleep apnea (adult) (pediatric); Z87.891 Personal history of nicotine dependence; Z79.4 Long term (current) use of insulin; Z79.82 Long term (current) use of aspirin
CPT/HCPCS: 36415; 36430; 71045; 78580; 80048; 80053; 81001; 82010; 82948; 83735; 83880; 84100; 84484; 85014; 85018; 85025; 85027; 86850; 86900; 86901; 86923; 93005; 93306; 93971; 94002; 96372; 96374; 96375; 96376; 97110; 97116; 97162; 97165; 97530; 97535; 99285; A9270; A9540; C8929; G0378; J0360; J1650; J1815; J7050; P9016; Q9957

== ENCOUNTER 2023-03-06 16:46 | Inpatient (IN) | payer MEDICARE, SELFPAY ==
--- NOTE | ~2023-03-06 | US_ITS ---
Renal-Bladder ultrasound Clinical History: Acute kidney insufficiency, hyperkalemia Technique: Real-time sonographic imaging of the kidneys and urinary bladder was performed. Findings: The right kidney measures 12.6 cm in length and the left kidney measures 12.2 cm. There is no hydronephrosis or renal calculus identified. Renal cortical echogenicity is within normal limits. No solid renal mass lesion is identified. The urinary bladder is partially distended at the time of this exam. No intraluminal echoes are ident ified. No abnormal wall thickening is seen. Impression: No significant abnormality seen. Reviewed, dictated and finalized at location . Impression: No significant abnormality seen.
--- NOTE | ~2023-03-06 | US_ITS ---
EXAMINATION: US venous doppler UE RT DATE: 03/13/2023 19:13 INDICATION: MB swelling TECHNIQUE: Grayscale ultrasound images without and with compression and Doppler ultrasound images of the right upper extremity veins were obtained. COMPARISON: None. FINDINGS: The visualized portions of the right internal jugular vein, subclavian vein, axillary vein, brachial veins, basilic vein, cephalic vein, radial vein, and ulnar vein are patent. Pitting edema. IMPRESSION: 1. No deep venous thrombosis. Reviewed, dictated and finalized at location K.
--- NOTE | ~2023-03-06 | XR_ITS ---
XR chest 1V portable DATE: 03/11/2023 05:37 INDICATION: Shortness of breath TECHNIQUE: Portable AP chest on 03/11/2023 at 0530 hours COMPARISON: 03/06/2023 portable AP chest at 7 1839 hours FINDINGS: Cardiomegaly. There is pulmonary vascular congestion and redistribution. There is prominenc e of minor fissure consistent with subpleural edema. There are bilateral central and lower lung zone infiltrates in a distribution consistent with pulmonary edema. Small right pleural effusion. No pneumothorax. No tubes or central lines. Diffuse idiopathic skeletal hyperostosis of the thoracic spine. Osteopenia. IMPRESSION: Congestive heart failure and pulmonary edema, increased since 03/06/2023 Reviewed, dictated and finalized at location A. IMPRESSION: Congestive heart failure and pulmonary edema, increased since 2022
--- NOTE | ~2023-03-06 | XR_ITS ---
EXAMINATION: XR chest 2V DATE: 03/06/2023 17:47 INDICATION: Weakness TECHNIQUE: frontal and lateral views of the chest were obtained. COMPARISON: 02/28/2023 FINDINGS: Bilateral perihilar opacities, left greater than right and mild opacities in the left lower lung zone . Small bilateral pleural effusions. No pneumothorax. Heart size is normal. There are bridging osteop hytes at multiple levels in the spine, consistent with diffuse idiopathic skeletal hyperostosis (DISH ). IMPRESSION: 1. Mild opacities in the left lower lung zone and bilateral perihilar regions, left greater than righ t which could represent asymmetric pulmonary edema, pneumonia, atelectasis or some combination thereo f. 2. Small bilateral pleural effusions. Reviewed, dictated and finalized at location A. IMPRESSION: 1. Mild opacities in the left lower lung zone and bilateral perihilar regions, left greater than right which could represent asymmetric pulmonary edema, pneum onia, atelectasis or some combination thereof. 2. Small bilateral pleural effusions.
--- NOTE | ~2023-03-06 | XR_ITS ---
EXAMINATION: XR chest 1V portable DATE: 03/15/2023 08:38 INDICATION: Shortness of breath. TECHNIQUE: A single frontal view of the chest was obtained. COMPARISON: Chest single view 03/11/2023 FINDINGS: There are airspace opacities in all lung zones bilaterally. There is a small right pleural effusion. No pneumothorax. Cardiomegaly is noted. IMPRESSION: 1. Stable diffuse lung disease, consistent with pulmonary edema versus pneumonia. 2. Worsened small right pleural effusion. 3. Cardiomegaly. Reviewed, dictated and finalized at location L. IMPRESSION: 1. Stable diffuse lung disease, consistent with pulmonary edema versus pneumoni a. 2. Worsened small right pleural effusion. 3. Cardiomegaly.
--- NOTE | ~2023-03-06 | XR_ITS ---
XR knee LT min 4V 03/06/2023 19:12 INDICATION: Left knee pain PROCEDURE: 4 views left knee COMPARISON: No prior studies for comparison. FINDINGS: Fracture, dislocation or subluxation is not identified. No significant joint effusion. Ther e is a left knee arthroplasty which is well seated. The soft tissues appear within normal limits. No foreign bodies are identified. IMPRESSION: 1: NO ACUTE BONE OR JOINT ABNORMALITY IDENTIFIED. Reviewed, dictated and finalized at location A.
--- NOTE | ~2023-03-06 | NM_ITS ---
EXAMINATION: NM renal flow and function DATE: 03/15/2023 12:57 INDICATION: Acute on chronic kidney disease. TECHNIQUE: 8.7 mCi Tc-99m MAG3 was administered IV. The patient was scanned in the supine position. A posterior abdominal radionuclide angiogram was obtained. A subsequent time course of static images of the kidneys, ureters, and bladder was obtained. COMPARISON: Ultrasound kidneys 03/15/2023 FINDINGS: The posterior abdominal radionuclide angiogram and sequential static images show normal siz e, position, and morphology of the kidneys. Peak renal parenchymal uptake was 7 min in right kidney a nd 11 min in left kidney (normal peak 3-5 minutes). The relative early renal uptake was 59% on the r ight and 41% on the left (<40% is abnormal). No abnormalities of the ureters or bladder are seen. T1/2 for clearance of activity from the right kidney and proximal collecting system was 27 minutes. T1/2 for clearance of activity from the left kidney and proximal collecting system was 43 minutes. IMPRESSION: 1. Symmetric kidney function. 2. Delayed contrast clearance from both kidneys, consistent with decreased renal function. Reviewed, dictated and finalized at location L. IMPRESSION: 1. Symmetric kidney function. 2. Delayed contrast clearance from both kidneys, consistent with decreased timmy al function.
--- NOTE | ~2023-03-06 | CT_ITS ---
EXAMINATION: CT brain wo con DATE: 03/06/2023 18:50 INDICATION: Weakness. Fall. TECHNIQUE: Computed tomography (CT) of the head was performed without intravenous contrast. The dose- length product was 1210.67 mGy-cm. Automated exposure control and iterative reconstruction technique were employed. COMPARISON: CT dated 01/19/2023 FINDINGS: Generalized atrophy. Persistent prominence of the lateral ventricles, likely due to atrophy . Normal pressure hydrocephalus is less favored. There are scattered mild periventricular and subcort ical white matter changes, most likely related to small vessel ischemic disease (microangiopathy). No acute intracranial hemorrhage, infarction, mass or mass effect. No midline shift. IMPRESSION: 1. No acute intracranial abnormality. 2: Chronic age-related findings. Mild ventricular prominence likely relates to brain parenchymal atro phy. Normal pressure hydrocephalus less favored. Reviewed, dictated and finalized at location A. IMPRESSION: 1. No acute intracranial abnormality. 2: Chronic age-related findings. Mild ventricular prominence likely relates to brain parenchymal atrophy. Normal pressure hydrocephalus less favored.
--- NOTE | ~2023-03-06 | XR_ITS ---
XR hip LT 2V w AP pelvis 03/06/2023 19:12 INDICATION: Left hip pain PROCEDURE: 3 views left hip COMPARISON: 01/13/2023 FINDINGS: Fracture, dislocation or subluxation is not identified. There is mild osteoarthritis of the hips. Pelvic rings are intact. Sacral foramen are symmetric. The soft tissues appear within normal l imits. No foreign bodies are identified. IMPRESSION: 1: NO ACUTE BONE OR JOINT ABNORMALITY IDENTIFIED. Reviewed, dictated and finalized at location A.
--- NOTE | ~2023-03-06 | US_ITS ---
EXAMINATION: US venous doppler [facility] DATE: 03/09/2023 14:49 INDICATION: Lower limb pain and swelling TECHNIQUE: Grayscale ultrasound images without and with compression and Doppler ultrasound images of the bilateral lower extremity veins were obtained. COMPARISON: None. FINDINGS: The visualized portions of right common femoral vein, profunda (deep) femoral vein, femoral vein, pop liteal vein, posterior tibial veins, peroneal veins, gastrocnemius vein and greater saphenous vein ou tflow are patent. The visualized portions of left common femoral vein, profunda femoral vein, femoral vein, popliteal v ein, posterior tibial veins, peroneal veins, gastrocnemius vein and greater saphenous vein outflow ar e patent. Shotty bilateral inguinal lymph nodes with central fatty essie, the largest on the left measuring 2.3 x 1.7 cm IMPRESSION: 1. No deep venous thrombosis in either lower limb. Reviewed, dictated and finalized at location A.
--- NOTE | ~2023-03-06 | XR_ITS ---
EXAMINATION: XR chest 2V DATE: 03/16/2023 19:22 INDICATION: Shortness of breath TECHNIQUE: AP and lateral views of the chest are obtained. COMPARISON: 03/15/2023 FINDINGS: Cardiomegaly is noted. There is diffuse lung disease with slight interval improvement. Ther e are small pleural effusions. No pneumothorax is identified. IMPRESSION: 1. Diffuse lung disease with slight improvement, consistent with pneumonia and/or pulmonary edema. 2. Recommended. 3. Small pleural effusions. Reviewed, dictated and finalized at location F. IMPRESSION: 1. Diffuse lung disease with slight improvement, consistent with pneumonia and/ or pulmonary edema. 2. Recommended. 3. Small pleural effusions.
[2023-03-06 16:47] VITALS: BP 149/63; PULSE 73; RESP 16; TEMP 36.6; O2SAT 93
--- NOTE | 2023-03-06 16:54 | ECG_ITS ---
Measurements Intervals [place] Rate: 70 P: -4 CO: 152 QRS: -3 QRSD: 107 T: 31 QT: 414 QTc: 447 Interpretive Statements SINUS RHYTHM BORDERLINE R WAVE PROGRESSION, ANTERIOR LEADS BASELINE ARTIFACT- I, II, III, AVR, AVL, V1-V4 BORDERLINE ECG COMPARED TO ECG 02/18/2023 15:44:29 NO SIGNIFICANT CHANGES Electronically Signed On 03-06-2023 20:07:51 CDT by Niko Reilly D.O.
[2023-03-06 17:04] LABS: Basophils Absolute Auto 0.1 K/mm3 (0.0-0.1); Basophils Percent Auto 1.1 % (0.2-1.2); Eosinophils Absolute Auto 0.1 K/mm3 (0-0.3); Eosinophils Percent Auto 1.9 % (0-4.4); Hematocrit 23.4 % (42.0-52.0); Hemoglobin 7.2 g/dL (14.0-18.0); Immature Granulocyte Absolute 0.06 K/mm3 (0.00-0.031); Immature Granulocyte Percent A 0.8 % (0-0.5); Lymphocytes Absolute Auto 0.65 K/mm3 (0.9-3.2); Lymphocytes Percent Auto 8.8 % (18.3-44.2); Mean Corpuscular HGB Conc 30.8 g/dl (32-36); Mean Corpuscular Hemoglobin 33.6 pg (26-34); Mean Corpuscular Volume 109.3 fl (80-100); Mean Platelet Volume 10.3 fl (7.4-10.4); Monocytes Absolute Auto 0.5 K/mm3 (0.1-0.6); Monocytes Percent Auto 6.4 % (2.6-8.5); Platelet Count Result 352 k/mm3 (150-375); Red Blood Count 2.14 M/mm3 (4.6-6.20); Red Cell Distribution Width 18.7 % (11.5-14.5); White Blood Count 7.4 K/mm3 (4.5-10.0)
[2023-03-06 17:16] LABS: Alanine Aminotransferase 30 U/L (6-50); Albumin Level 3.1 g/dL (3.5-5.1); Alkaline Phosphatase 126 U/L (38-126); Anion Gap 9 mmol/L (8-16); Aspartate Amino Transferase 31 U/L (17-59); Bilirubin,Total 0.5 mg/dL (0.2-1.3); Blood Urea Nitrogen 81 mg/dL (9-20); Calcium 7.6 mg/dL (8.4-10.2); Carbon Dioxide 22 mmol/L (22-30); Chloride 108 mmol/L (98-107); Estimated CRCL calculation 19 ml/min; Estimated Glomerular Filt Rate 15; Glucose 253 mg/dL (65-110); Sodium 139 mmol/L (137-145)
[2023-03-06 17:32] LABS: Appearance Urine Cloudy (Clear); Bacteria Urine None Seen /hpf; Bilirubin Urine Negative (Negative); Blood Urine Negative (Negative); Color Urine Yellow (Yellow); Glucose Urine UA 1+ mg/dL (Negative); Hyaline Casts Urine Present /lpf; Ketones Urine Negative (Negative); Leukocyte Esterase Ur 1+ LEU/UL (Negative); Need Manual Microscopic Reviewed; Nitrate Urine Negative (Negative); Non Pathogenic Casts >20; Protein Urine 3+ mg/dL (Negative); RBC Urine 0-2 /hpf (0-2); Specific Grav Ur 1.015 (1.001-1.035); Squamous Epithelial Cell Urine Occasional /hpf (Few); WBC Urine 0-5 /hpf
[2023-03-06 17:36] LABS: Add Urine Microscopic? YES
--- NOTE | 2023-03-06 18:35 | ED.WEAKNESS ---
HPI - Weakness General Chief complaint: Weakness <Meenu Kidd PA-C - Last Filed: 03/06/23 21:28> Stated complaint: WEAKNESS <ANA LUISA Perez Last Filed: 03/06/23 21:28> Time Seen by Provider: 03/06/23 17:20 <Meenu Kidd PA-C - Last Filed: 03/06/23 21:28> Source: patient and family <ANA LUISA Perez Last Filed: 03/06/23 21:28> Mode of arrival: EMS <ANA LUISA Perez Last Filed: 03/06/23 21:28> Limitations: no limitations <Meenu Kidd PA-C - Last Filed: 03/06/23 21:28> History of Present Illness HPI Narrative: This is a 77-year-old male that presents to the emergency department for generalized weakness. Reports he was recently discharged from our rehab facility. He was feeling good and functioning well upon discharge. Since he has been home he has progressively gone downhill again. Reports being weak in his legs and then giving out on him. Reports this caused him to fall onto his bottom twice today. He does not report hitting his head or loss of consciousness. He denies any other focal symptoms. Denies fever, cough, visual changes, chest pain, worsening shortness of breath, abdominal pain, vomiting, or dysuria. <Meenu Kidd PA-C - Last Filed: 03/06/23 21:28> Related Data Home medications: Home Medications Medication Instructions Recorded Confirmed carvedilol 12.5 mg tablet (Coreg) 25 mg PO Q12HR 11/27/22 02/22/23 gabapentin 100 mg capsule 100 mg PO BID 11/27/22 02/22/23 pantoprazole 40 mg tablet,delayed 40 mg PO .THREE TIMES WEEKLY 01/13/23 02/22/23 release amlodipine 10 mg tablet 10 mg PO DAILY 02/18/23 02/22/23 <ANA LUISA Perez Last Filed: 03/06/23 21:28> Allergies/Adverse reactions: Allergies Allergy/AdvReac Type Severity Reaction Status Date / Time LAUREN Inhibitors Allergy Cough Verified 02/18/23 20:49 enalapril Allergy Cough Verified 02/18/23 20:49 lisinopril Allergy Cough Verified 02/18/23 20:49 quinapril Allergy Cough Verified 02/18/23 20:49 <Meenu Kidd PA-C - Last Filed: 03/06/23 21:28> Review of Systems Review of Systems: CONSTITUTIONAL: Denies fever EYES: Denies visual changes CARDIOVASCULAR: Reports edema. Denies chest pain RESPIRATORY: Denies cough or dyspnea. GASTROINTESTINAL: Denies abdominal pain, nausea, vomiting GENITOURINARY: Denies dysuria or hematuria. MUSCULOSKELETAL: Reports joint pain and myalgia. Denies back pain NEUROLOGIC: Reports generalized weakness. Denies headache, numbness <Meenu Kidd PA-C - Last Filed: 03/06/23 21:28> All systems reviewed & are unremarkable except as noted in HPI and below <Meenu Kidd PA-C - Last Filed: 03/06/23 21:28> [facility] Past Medical History Medical History: Medical History Arthritis Chronic anemia Chronic kidney disease Chronic obstructive pulmonary disease Depression Diabetic peripheral neuropathy Diastolic congestive heart failure Hypertension Insulin dependent diabetes mellitus Obstructive sleep apnea Strain of right hip and thigh <Meenu Kidd PA-C - Last Filed: 03/06/23 21:28> Surgical History Surgical History: Surgical History History of cholecystectomy History of foot surgery History of penile implant <Meenu Kidd PA-C - Last Filed: 03/06/23 21:28> Family History Family History: Family History Father Cancer Diabetes mellitus Mother Hyperlipidemia Hypertension Heart attack Sibling Hx of CABG Colon cancer <Meenu Kidd PA-C - Last Filed: 03/06/23 21:28> Social History Social History: Social History Social History: Surrogate medical decision maker: Palmira Worthington, granddaughter. Code status: Full code. Smoking packs per day: 1 Smoking cigar
--- NOTE | 2023-03-06 20:03 | PM.IMHP ---
H&P: HPI History of Present Illness Date/Time: 03/06/23 20:03 Chief Complaint: generalized weakness Narrative: 77-year-old male with past medical history significant for type 2 diabetes mellitus, COPD, obstructive sleep apnea on CPAP at nighttime, patient just recently discharged from rehabilitation due to generalized weakness however at home has been very weak and falling unable to take care for himself has been providing most of the care was brought to the emergency room for evaluation. Patient is not really a good historian and can not really give much meaningful history preliminary workup was significant for chest x-ray with infiltrates EXAMINATION: XR chest 2V DATE: 03/06/2023 17:47 INDICATION: Weakness TECHNIQUE: frontal and lateral views of the chest were obtained. COMPARISON: 02/28/2023 FINDINGS: Bilateral perihilar opacities, left greater than right and mild opacities in the left lower lung zone. Small bilateral pleural effusions. No pneumothorax. Heart size is normal. There are bridging osteophytes at multiple levels in the spine, consistent with diffuse idiopathic skeletal hyperostosis (DISH). IMPRESSION: 1. Mild opacities in the left lower lung zone and bilateral perihilar regions, left greater than right which could represent asymmetric pulmonary edema, pneumonia, atelectasis or some combination thereof. 2. Small bilateral pleural effusions. Rate 70 NV 152 QRSd 107 QT 414 QTc 447 --[place]-- P -4 QRS -3 T 31 SINUS RHYTHM BORDERLINE R WAVE PROGRESSION, ANTERIOR LEADS BASELINE ARTIFACT- I, II, III, AVR, AVL, V1-V4 BORDERLINE ECG COMPARED TO ECG 02/18/2023 15:44:29 NO SIGNIFICANT CHANGES Electronically Signed On 03-06-2023 20:07:51 CDT by Niko Reilly D.O. Review of Systems Review of Systems: generalized weakness, shortness of breath. [facility] Past Medical History Medical History Arthritis Chronic anemia Chronic kidney disease Chronic obstructive pulmonary disease Depression Diabetic peripheral neuropathy Diastolic congestive heart failure Hypertension Insulin dependent diabetes mellitus Obstructive sleep apnea Strain of right hip and thigh Surgical History Surgical History History of cholecystectomy History of foot surgery History of penile implant Family History Family History Father Cancer Diabetes mellitus Mother Hyperlipidemia Hypertension Heart attack Sibling Hx of CABG Colon cancer Social History Social History Social History: Surrogate medical decision maker: Palmira Worthington, granddaughter. Code status: Full code. Smoking packs per day: 1 Smoking cigarettes per day: 20.0 Years smoked: 2 Smoking pack-years: 2.00 Smoking status: Former smoker Tobacco type: cigarettes Second hand tobacco smoke exposure: Yes Smoking end date: 08/13/1967 Alcohol intake: former Drinks per week: 1 Alcohol use details: Occasional glass a wine though rare. Substance use: never Substance use type: does not use Lack of Transportation: No Lack of Food: Never True Current Housing: I Have Housing Concerned About Future Housing: No Difficulty Paying Gas/Electric Bills: No Difficulty Paying for Meds: No Currently Unemployed: No Education: High School Diploma/GED Difficulty w/ Childcare or Family Care: No Living arrangements: with family Occupation/Education: retired Additional occupation/education comments: Retired from [employer]. Spiritual care concerns: No Meds Home Medications and Allergies Home Medications Medication Instructions Recorded Confirmed Type aspirin 81 mg chewable tablet 81 mg PO DAILY@0800 #30 tabs 11/22/22 03/06/23 Rx (Children's Aspirin) bupropion HCl 75 mg tablet 75 mg PO Q12HR #60 tabs
[2023-03-06] MEDS: cefTRIAXone 2 GM/NS 100 ML 2 GM/100 ML BAG IVPB (20:30)
[2023-03-06 20:47] VITALS: BP 159/68; PULSE 68; RESP 19; O2SAT 95
[2023-03-06] MEDS: AZITHROMYCIN 500 MG/NS 250 ML 500 MG/250 ML BAG 250 MG IVPB (21:05)
[2023-03-06 21:48] VITALS: BMI 33.5
--- NOTE | 2023-03-06 21:56 | ADMGEN ---
This patient, Kenneth Powers, was admitted to Medical Room 245-. Patient/family oriented to hospital policies and general routines including ID bracelet, bed and alarms, visiting hours, pain management, procedures, bathroom and other care routines, personal items, smoking policy, room service/diet, and visiting hours. Information on how to activate the Rapid Response Team has been discussed. Patient/Family are encouraged to report perceived risks to care and to ask questions if they do not understand what they are told or what they should do.
[2023-03-06 22:00] VITALS: BP 116/59; PULSE 71; RESP 16; TEMP 36.5; O2SAT 91
[2023-03-06 22:08] LABS: Glucose Point of Care 197 mg/dl (65-105)
[2023-03-06 22:33] VITALS: O2SAT 91
[2023-03-07] VITALS (20 sets, daily range): BP systolic 109–159; BP diastolic 43–70; PULSE 48–75; RESP 13–28; TEMP 36.4–36.6; O2SAT 91–100
--- NOTE | 2023-03-07 00:15 | ECG_ITS ---
Measurements Intervals [place] Rate: 75 P: 35 KS: 177 QRS: 0 QRSD: 83 T: 27 QT: 382 QTc: 428 Interpretive Statements SINUS RHYTHM BASELINE ARTIFACT- I, II, III, AVR, AVL, AVF, V1-V6 NORMAL ECG COMPARED TO ECG 03/06/2023 17:23:37 NO SIGNIFICANT CHANGES Electronically Signed On 03-07-2023 7:01:22 CDT by Niko Reilly D.O.
[2023-03-07] MEDS: MELATONIN 5 MG TABLET PO ×2 (00:50→20:22)
[2023-03-07] MEDS: ALBUTEROL SULFATE NEB 2.5 MG/3 ML INH INHALATION (00:59)
[2023-03-07] MEDS: IPRATROPIUM BR 0.02% INH SOLN 0.5 MG/2.5 ML VIAL INHALATION (00:59)
[2023-03-07 01:04] LABS: Alveolar/Arterial O2 Gradient 154.5 mmHg; Base Excess ABG -3.8 mEq/l (+/-2.0); Fractional Inspired Oxygen 36 %; HCO3 ABG 22.2 mEq/l (22.0-26.0); Oxygen Content ABG 9.8 %vol (16.0-22.0); PCO2 ABG 44.4 mmHg (35.0-45.0); PO2 ABG 50.7 mmHg (80.0-100.0); PO2 FiO2 Ratio Arterial Blood 1.41 %; Total Hemoglobin 8.6 g/dL (12.0-18.0); pH ABG 7.316 (7.350-7.450)
[2023-03-07 01:06] LABS: Oxygen Saturation ABG 82.7 % (95.0-100.0)
[2023-03-07 01:07] LABS: Device NASAL CANNULA; Oxyhemoglobin 80.5 % THb (90.0-100.0); Site Drawn RIGHT BRACHIAL
[2023-03-07 05:38] LABS: Basophils Absolute Auto 0.1 K/mm3 (0.0-0.1); Basophils Percent Auto 0.7 % (0.2-1.2); Eosinophils Absolute Auto 0.1 K/mm3 (0-0.3); Eosinophils Percent Auto 1.2 % (0-4.4); Hematocrit 23.2 % (42.0-52.0); Hemoglobin 7.1 g/dL (14.0-18.0); Immature Granulocyte Absolute 0.08 K/mm3 (0.00-0.031); Immature Granulocyte Percent A 0.8 % (0-0.5); Lymphocytes Absolute Auto 0.22 K/mm3 (0.9-3.2); Lymphocytes Percent Auto 2.1 % (18.3-44.2); Mean Corpuscular HGB Conc 30.6 g/dl (32-36); Mean Corpuscular Hemoglobin 33.8 pg (26-34); Mean Corpuscular Volume 110.5 fl (80-100); Mean Platelet Volume 10.2 fl (7.4-10.4); Monocytes Absolute Auto 0.5 K/mm3 (0.1-0.6); Monocytes Percent Auto 4.7 % (2.6-8.5); Neutrophils Absolute Auto 9.5 K/mm3 (1.3-6.7); Neutrophils Percent Auto 90.5 % (45.5-73.1); Platelet Count Result 342 k/mm3 (150-375); Red Cell Distribution Width 18.8 % (11.5-14.5); White Blood Count 10.5 K/mm3 (4.5-10.0)
[2023-03-07 05:54] LABS: Anion Gap 9 mmol/L (8-16); Blood Urea Nitrogen 79 mg/dL (9-20); Calcium 7.6 mg/dL (8.4-10.2); Carbon Dioxide 23 mmol/L (22-30); Chloride 108 mmol/L (98-107); Estimated CRCL calculation 17 ml/min; Estimated Glomerular Filt Rate 15; Glucose 211 mg/dL (65-110); Potassium 4.9 mmol/L (3.4-5.0); Sodium 140 mmol/L (137-145)
[2023-03-07 06:02] LABS: Schistocytes None Seen (NORMAL)
[2023-03-07 06:03] LABS: Platelet Estimate Adequate (Adequate); Poikilocytosis 1+ (NORMAL)
[2023-03-07 06:04] LABS: Anisocytosis 2+ (NORMAL)
--- NOTE | 2023-03-07 07:36 | PM.IMPN ---
Progress Note: A&P Assessment and Plan (1) Nosocomial pneumonia: Code(s): J18.9 - Pneumonia, unspecified organism; Y95 - Nosocomial condition Status: Acute Assessment and Plan: Started on vancomycin, cefepime azithromycin 03/06 (2) Weakness generalized: Code(s): R53.1 - Weakness Status: Acute Assessment and Plan: Multifactorial, complicated by acute illness PT/OT (3) Chronic kidney disease, stage IV (severe): Code(s): N18.4 - Chronic kidney disease, stage 4 (severe) Status: Acute Assessment and Plan: Creatinine appears to be around 3.5-3.9, currently 4, monitor (4) Type 2 diabetes mellitus with hyperglycemia, with long-term current use of insulin: Code(s): E11.65 - Type 2 diabetes mellitus with hyperglycemia; Z79.4 - assisted (current) use of insulin Status: Acute Assessment and Plan: Continue home insulin, Accu-Cheks, sliding scale insulin Check A1c Blood glucose reviewed 03/07 (5) Diastolic congestive heart failure: Qualifiers: Heart failure chronicity: chronic Qualified Code(s): I50.32 - Chronic diastolic (congestive) heart failure Code(s): I50.30 - Unspecified diastolic (congestive) heart failure Status: Chronic Assessment and Plan: Slightly hypervolemic, monitor (6) Obstructive sleep apnea: Code(s): G47.33 - Obstructive sleep apnea (adult) (pediatric) Status: Acute Assessment and Plan: CPAP at nighttime (7) Chronic anemia: Code(s): D64.9 - Anemia, unspecified Status: Acute Assessment and Plan: likely secondary to renal failure, monitor (8) Neurogenic bladder: Code(s): N31.9 - Neuromuscular dysfunction of bladder, unspecified Status: Acute (9) Chronic obstructive pulmonary disease: Code(s): J44.9 - Chronic obstructive pulmonary disease, unspecified Status: Acute Assessment and Plan: Nebulizers as needed, does not appear in exacerbation Plan DVT prophylaxis with SCDs GI prophylaxis not indicated Code status full code Subjective Date/time seen: 03/07/23 07:36 Interval history: 77-year-old male with history of diabetes, COPD, sleep apnea is presenting with generalized weakness and currently being treated for possible pneumonia. No overnight events noted. No chest pain or shortness of breath. No nausea, vomiting or diarrhea. No fevers or chills. Review of Systems Review of Systems: 12 point review of systems was assessed and was negative except as noted in the HPI Exam Narrative: General: No acute distress, alert and oriented per baseline HEENT: Atraumatic, normocephalic, mucous membranes moist CV: Regular rate and rhythm, S1, S2 Lungs: Clear to auscultation bilaterally, no rales or crackles noted, no wheezes Abdomen: Soft, nontender, nondistended Extremities: Normal to inspection Skin: No rashes noted, no lesions or wounds seen Psych: Euthymic, normal affect Objective Data Vital Signs Vital Signs: Vital Signs - 24 hr 03/06/23 16:47 03/06/23 20:47 03/06/23 22:00 Temperature 97.8 F 97.7 F Pulse Rate 73 68 71 Respiratory Rate 16 19 16 Blood Pressure 149/63 H 159/68 H 116/59 L Pulse Oximetry 93 95 91 Oxygen Delivery Nasal Cannula Oxygen Flow Rate 3 Fraction of Inspired Oxygen 03/06/23 22:33 03/07/23 00:07 03/07/23 00:18 Temperature 97.6 F Pulse Rate 74 73 Respiratory Rate 16 25 H Blood Pressure 145/58 H 154/70 H Pulse Oximetry 91 93 95 Oxygen Delivery Nasal Cannula Oxygen Flow Rate 3 Fraction of Inspired Oxygen 03/07/23 00:30 03/07/23 00:47 03/07/23 01:00 Temperature 97.6 F 97.7 F Pulse Rate 73 73 Respiratory Rate 28 H 25 H 24 H Blood Pressure 142/55 H 159/53 H Pulse Oximetry 92 91 Oxygen Delivery Oxygen Flow Rate Fraction of Inspired Oxygen 03/07/23 01:19 03/07/23 01:20 03/07/23 01:21 Temperature
[2023-03-07 08:28] LABS: Glucose Point of Care 203 mg/dl (65-105)
[2023-03-07 08:42] LABS: CRP 6.6 mg/dL (<1.0)
[2023-03-07] MEDS: GABAPENTIN 100 MG CAPSULE PO ×2 (08:44→17:36)
[2023-03-07] MEDS: PANTOPRAZOLE 40 MG TABLET PO (08:44)
[2023-03-07] MEDS: hydroCHLOROthiazide 25 MG TABLET PO (08:45)
[2023-03-07] MEDS: amLODIPine BESYLATE 5 MG TABLET 10 MG PO (08:45)
[2023-03-07] MEDS: carvediloL 25 MG TABLET PO ×2 (08:45→20:21)
[2023-03-07] MEDS: SERTRALINE HCL 25 MG TABLET PO (08:45)
[2023-03-07] MEDS: INSULIN GLARGINE (*BKC) 100 UNITS/ML 15 UNITS SUB-Q (08:45)
[2023-03-07] MEDS: ASPIRIN 81 MG CHEWABLE TABLET PO (08:45)
[2023-03-07] MEDS: hydrALAZINE HCL 25 MG TABLET PO ×2 (08:45→12:31)
[2023-03-07] MEDS: INSULIN ASPART (*BKC) 100 UNITS/ML 8 UNITS SUB-Q ×2 (08:46→12:31)
[2023-03-07 08:49] LABS: NT Pro B Type Natriuretic Pept 17300 pg/mL (19.9-100)
[2023-03-07 09:44] LABS: Procalcitonin 0.4 ng/mL
[2023-03-07 12:08] LABS: Glucose Point of Care 166 mg/dl (65-105)
[2023-03-07] MEDS: buPROPion HCL 75 MG TABLET PO ×2 (12:31→20:22)
--- NOTE | 2023-03-07 16:55 | PCPTNOTE ---
On 03/07/23, the student, FRACISCO Lai, provided care and completed [facility] documentation on this patient. I have reviewed the student's documentation and agree with the findings.
[2023-03-07 17:21] LABS: Glucose Point of Care 67 mg/dl (65-105)
[2023-03-07 18:04] LABS: Glucose Point of Care 108 mg/dl (65-105)
[2023-03-07] MEDS: rOPINIRole HCL 0.5 MG TABLET PO (20:22)
[2023-03-07 22:11] LABS: Glucose Point of Care 121 mg/dl (65-105)
[2023-03-08] VITALS (26 sets, daily range): BP systolic 120–137; BP diastolic 47–67; PULSE 53–72; RESP 14–22; TEMP 36.1–36.5; O2SAT 93–97
[2023-03-08] MEDS: AZITHROMYCIN 500 MG/NS 250 ML 500 MG/250 ML BAG 250 MG IVPB (00:11)
[2023-03-08] MEDS: CEFEPIME 2 GM/NS 50 ML 2 GM/50 ML BAG IVPB (00:12)
[2023-03-08 05:59] LABS: Basophils Absolute Auto 0.1 K/mm3 (0.0-0.1); Basophils Percent Auto 0.9 % (0.2-1.2); Eosinophils Absolute Auto 0.6 K/mm3 (0-0.3); Eosinophils Percent Auto 9.6 % (0-4.4); Hematocrit 21.6 % (42.0-52.0); Immature Granulocyte Absolute 0.05 K/mm3 (0.00-0.031); Immature Granulocyte Percent A 0.8 % (0-0.5); Lymphocytes Absolute Auto 0.54 K/mm3 (0.9-3.2); Lymphocytes Percent Auto 8.4 % (18.3-44.2); Mean Corpuscular HGB Conc 30.1 g/dl (32-36); Mean Corpuscular Hemoglobin 33.7 pg (26-34); Mean Corpuscular Volume 111.9 fl (80-100); Mean Platelet Volume 10.2 fl (7.4-10.4); Monocytes Absolute Auto 0.4 K/mm3 (0.1-0.6); Monocytes Percent Auto 6.8 % (2.6-8.5); Neutrophils Absolute Auto 4.7 K/mm3 (1.3-6.7); Neutrophils Percent Auto 73.5 % (45.5-73.1); Platelet Count Result 303 k/mm3 (150-375); Red Blood Count 1.93 M/mm3 (4.6-6.20); Red Cell Distribution Width 19.2 % (11.5-14.5); White Blood Count 6.5 K/mm3 (4.5-10.0)
[2023-03-08 06:12] LABS: Hemoglobin 6.5 g/dL (14.0-18.0)
[2023-03-08 06:18] LABS: Alanine Aminotransferase 30 U/L (6-50); Albumin Level 2.8 g/dL (3.5-5.1); Alkaline Phosphatase 117 U/L (38-126); Anion Gap 9 mmol/L (8-16); Aspartate Amino Transferase 30 U/L (17-59); Bilirubin,Total 0.3 mg/dL (0.2-1.3); Blood Urea Nitrogen 86 mg/dL (9-20); Calcium 7.3 mg/dL (8.4-10.2); Carbon Dioxide 24 mmol/L (22-30); Chloride 106 mmol/L (98-107); Estimated CRCL calculation 16 ml/min; Estimated Glomerular Filt Rate 13; Glucose 130 mg/dL (65-110); Potassium 5.3 mmol/L (3.4-5.0); Sodium 139 mmol/L (137-145)
[2023-03-08 06:51] LABS: Anisocytosis 2+ (NORMAL); Macrocytosis 1+ (NORMAL); Platelet Estimate Adequate (Adequate)
[2023-03-08 06:53] LABS: Poikilocytosis 1+ (NORMAL); Schistocytes None Seen (NORMAL)
[2023-03-08 08:51] LABS: Glucose Point of Care 110 mg/dl (65-105)
[2023-03-08] MEDS: hydrALAZINE HCL 25 MG TABLET PO ×3 (09:11→16:15)
[2023-03-08] MEDS: carvediloL 25 MG TABLET PO ×2 (09:11→20:37)
[2023-03-08] MEDS: SERTRALINE HCL 25 MG TABLET PO (09:11)
[2023-03-08] MEDS: buPROPion HCL 75 MG TABLET PO ×2 (09:11→20:36)
[2023-03-08] MEDS: GABAPENTIN 100 MG CAPSULE PO ×2 (09:11→16:15)
[2023-03-08] MEDS: ASPIRIN 81 MG CHEWABLE TABLET PO (09:11)
[2023-03-08] MEDS: hydroCHLOROthiazide 25 MG TABLET PO (09:11)
[2023-03-08] MEDS: amLODIPine BESYLATE 5 MG TABLET 10 MG PO (09:12)
[2023-03-08] MEDS: SODIUM CHLORIDE 0.9% IV 250 ML 30 ML IV CONT (10:02)
[2023-03-08] MEDS: INSULIN GLARGINE (*BKC) 100 UNITS/ML 15 UNITS SUB-Q (10:08)
--- NOTE | 2023-03-08 10:46 | PCOTNOTE ---
The patient treatment was not able to be completed on 03/08 due to Patient getting blood will attempt later today. Will plan to continue treatment per plan of care.
[2023-03-08 11:51] LABS: Glucose Point of Care 166 mg/dl (65-105)
[2023-03-08] MEDS: INSULIN ASPART (*BKC) 100 UNITS/ML 8 UNITS SUB-Q ×2 (12:30→17:53)
--- NOTE | 2023-03-08 13:43 | PCOTNOTE ---
The patient treatment was not able to be completed on 03/08 at 13:43 due to patient receiving more blood. Will plan to continue treatment per plan of care tomorrow.
--- NOTE | 2023-03-08 14:45 | P.CONNP_ITS ---
Assessment and Plan Assessment and plan (1) VISHNU (acute kidney injury): Code(s): N17.9 - Acute kidney failure, unspecified Status: Acute Assessment and Plan: * as noted by trend of labs since admission (and previous admissions/hospitalizations) * likely related to several issues: * significant anemia * infection (possible pneumonia) * prerenal factors * CKD progression (?) * check urine studies * previous renal ultrasound done at rehab unremarkable * follow trend of repeat labs and UOP (2) Chronic kidney disease, stage IV (severe): Code(s): N18.4 - Chronic kidney disease, stage 4 (severe) Status: Acute Assessment and Plan: * creatinine ~ 1.8 - 2.7mg/dl by outpatient records * follows with Dr. Davis Ny for CKD managmenet * suspect due to HTN, DM, vascular disease, and age-related change * HOWEVER, since last hospitalization, creatinine running higher...closer to 3.3 - 3.6mg/dl (new baseline?) (3) Anemia: Code(s): D64.9 - Anemia, unspecified Status: Chronic Assessment and Plan: * as noted on admission * acute on chronic * suspect partly related to underlying CKD * PRBC transfusion per protocol * likely benefit from SALLY * follow trend of H/H (4) Hypertension: Qualifiers: Hypertension type: primary hypertension Qualified Code(s): I10 - Essential (primary) hypertension Code(s): I10 - Essential (primary) hypertension Status: Chronic Assessment and Plan: * reasonable control at this time * possible :overcontrol since recent issues with HTN urgency (?) * continue current medications * follow trend of hemodynamics (5) Diabetes mellitus with chronic kidney disease: Code(s): E11.22 - Type 2 diabetes mellitus with diabetic chronic kidney disease Status: Chronic Assessment and Plan: * follow accu-cheks * glycemic control per hospitalisits I will continue follow patient with you while remains hospitalized to make further recommendations as needed. Thank you for allowing me to participate in the care of this patient. History of Present Illness Reason for Consult Consult date: 03/08/23 Reason for consult: acute renal failure (on chronic kidney disease) Chief Complaint Chief complaint: Generlized Weakness/Anemia History of Present Illness Narrative: The patient is a 77-year-old male with a past medical history as outlined below who presented to [facility] Emergency room for further evaluation of generalized weakness. It should be noted the patient was just recently hospitalized here at [facility] earlier this month for hypertensive urgency, anemia, and acute kidney injury on top of his baseline kidney disease. His condition stabilized with re linus to his blood pressure and anemia but his kidney function was still not back to baseline by time of his discharge. He was discharged to the [facility] where his kidney function remained elevated but stable. It was felt that his creatinine at that time may be a new baseline. He was subsequently discharged home after his stay at [facility]. When he was discharged home, he was feeling close to baseline and functioning reasonably well. However, since his discharge, he has progressively declined once again. He reports generalized weakness in his lower extremities in association with his legs giving out on him resulting in falls x2 on the day of presentation. He denies any head trauma or loss of consciousness. He denies any other sub
--- NOTE | 2023-03-08 14:45 | PM.CNNEP ---
Assessment and Plan Assessment and plan (1) VISHNU (acute kidney injury): Code(s): N17.9 - Acute kidney failure, unspecified Status: Acute Assessment and Plan: as noted by trend of labs since admission (and previous admissions/hospitalizations) likely related to several issues: significant anemia infection (possible pneumonia) prerenal factors CKD progression (?) check urine studies previous renal ultrasound done at rehab unremarkable follow trend of repeat labs and UOP (2) Chronic kidney disease, stage IV (severe): Code(s): N18.4 - Chronic kidney disease, stage 4 (severe) Status: Acute Assessment and Plan: creatinine ~ 1.8 - 2.7mg/dl by outpatient records follows with Dr. Davis Ny for CKD managmenet suspect due to HTN, DM, vascular disease, and age-related change HOWEVER, since last hospitalization, creatinine running higher...closer to 3.3 - 3.6mg/dl (new baseline?) (3) Anemia: Code(s): D64.9 - Anemia, unspecified Status: Chronic Assessment and Plan: as noted on admission acute on chronic suspect partly related to underlying CKD PRBC transfusion per protocol likely benefit from SALLY follow trend of H/H (4) Hypertension: Qualifiers: Hypertension type: primary hypertension Qualified Code(s): I10 - Essential (primary) hypertension Code(s): I10 - Essential (primary) hypertension Status: Chronic Assessment and Plan: reasonable control at this time possible :overcontrol since recent issues with HTN urgency (?) continue current medications follow trend of hemodynamics (5) Diabetes mellitus with chronic kidney disease: Code(s): E11.22 - Type 2 diabetes mellitus with diabetic chronic kidney disease Status: Chronic Assessment and Plan: follow accu-cheks glycemic control per hospitalisits I will continue follow patient with you while remains hospitalized to make further recommendations as needed. Thank you for allowing me to participate in the care of this patient. History of Present Illness Reason for Consult Consult date: 03/08/23 Reason for consult: acute renal failure (on chronic kidney disease) Chief Complaint Chief complaint: Generlized Weakness/Anemia History of Present Illness Narrative: The patient is a 77-year-old male with a past medical history as outlined below who presented to [facility] Emergency room for further evaluation of generalized weakness. It should be noted the patient was just recently hospitalized here at [facility] earlier this month for hypertensive urgency, anemia, and acute kidney injury on top of his baseline kidney disease. His condition stabilized with regard to his blood pressure and anemia but his kidney function was still not back to baseline by time of his discharge. He was discharged to the [facility] where his kidney function remained elevated but stable. It was felt that his creatinine at that time may be a new baseline. He was subsequently discharged home after his stay at [facility]. When he was discharged home, he was feeling close to baseline and functioning reasonably well. However, since his discharge, he has progressively declined once again. He reports generalized weakness in his lower extremities in association with his legs giving out on him resulting in falls x2 on the day of presentation. He denies any head trauma or loss of consciousness. He denies any other subjective symptoms with regard to fevers, chills, cough, visual changes, chest pain, shortness of breath, abdominal pain, nausea, vomiting, or dysuria. Given his progressive decline since his discharge from rehab, he presented to the ER for further assessment. Workup and evaluation emergency room demonstrated the patient be hemodynamically stable but routine blood test demonstrated worsening of his b
--- NOTE | 2023-03-08 14:48 | PCPTNOTE ---
Attempted to see patient for PT, however patient declined due to feeling too tired today. Patient's hemoglobins 6.5 this morning, patient will be getting second unit of blood later.
[2023-03-08] MEDS: SODIUM CHLORIDE 0.9% IV 250 ML 65 ML (16:14)
--- NOTE | 2023-03-08 16:44 | PM.IMPN ---
Progress Note: A&P Assessment and Plan (1) Nosocomial pneumonia: Code(s): J18.9 - Pneumonia, unspecified organism; Y95 - Nosocomial condition Status: Acute Assessment and Plan: Started on vancomycin, cefepime, azithromycin 03/06 (2) Weakness generalized: Code(s): R53.1 - Weakness Status: Acute Assessment and Plan: Multifactorial, complicated by acute illness, worsened by anemia PT/OT (3) Chronic kidney disease, stage IV (severe): Code(s): N18.4 - Chronic kidney disease, stage 4 (severe) Status: Acute Assessment and Plan: Creatinine appears to be around 3.5-3.9, currently 4, monitor nephrology consult pending (4) Type 2 diabetes mellitus with hyperglycemia, with long-term current use of insulin: Code(s): E11.65 - Type 2 diabetes mellitus with hyperglycemia; Z79.4 - tank terminal gauger (current) use of insulin Status: Acute Assessment and Plan: Continue home insulin, Accu-Cheks, sliding scale insulin Check A1c Blood glucose reviewed 03/08 (5) Diastolic congestive heart failure: Qualifiers: Heart failure chronicity: chronic Qualified Code(s): I50.32 - Chronic diastolic (congestive) heart failure Code(s): I50.30 - Unspecified diastolic (congestive) heart failure Status: Chronic Assessment and Plan: Slightly hypervolemic, monitor (6) Obstructive sleep apnea: Code(s): G47.33 - Obstructive sleep apnea (adult) (pediatric) Status: Acute Assessment and Plan: CPAP at nighttime (7) Chronic anemia: Code(s): D64.9 - Anemia, unspecified Status: Acute Assessment and Plan: likely secondary to renal failure, monitor (8) Neurogenic bladder: Code(s): N31.9 - Neuromuscular dysfunction of bladder, unspecified Status: Acute (9) Chronic obstructive pulmonary disease: Code(s): J44.9 - Chronic obstructive pulmonary disease, unspecified Status: Acute Assessment and Plan: Nebulizers as needed, does not appear in exacerbation (10) Acute anemia: Code(s): D64.9 - Anemia, unspecified Status: Acute Assessment and Plan: Check stool occult, iron studies not done prior to transfusion, monitor Plan DVT prophylaxis with SCDs GI prophylaxis not indicated Code status full code Subjective Date/time seen: 03/08/23 16:44 Interval history: 77-year-old male with history of diabetes, COPD, sleep apnea is presenting with generalized weakness and currently being treated for possible pneumonia. No overnight events noted. No chest pain or shortness of breath. No nausea, vomiting or diarrhea. No fevers or chills. Hgb dropped, receiving transfusion. Review of Systems Review of Systems: 12 point review of systems was assessed and was negative except as noted in the HPI Exam Narrative: General: No acute distress, alert and oriented per baseline HEENT: Atraumatic, normocephalic, mucous membranes moist CV: Regular rate and rhythm, S1, S2 Lungs: Clear to auscultation bilaterally, no rales or crackles noted, no wheezes Abdomen: Soft, nontender, nondistended Extremities: Normal to inspection Skin: No rashes noted, no lesions or wounds seen Psych: Euthymic, normal affect Objective Data Vital Signs Vital Signs: Vital Signs - 24 hr 03/07/23 20:21 03/07/23 20:24 03/07/23 20:00 Temperature 97.6 F Pulse Rate 58 L 59 L 57 L Respiratory Rate 16 Blood Pressure 131/61 Pulse Oximetry 100 Oxygen Delivery Oxygen Flow Rate Fraction of Inspired Oxygen 03/07/23 20:00 03/07/23 23:26 03/08/23 00:00 Temperature Pulse Rate 72 Respiratory Rate 13 Blood Pressure Pulse Oximetry 98 Oxygen Delivery Nasal Cannula Autopap Oxygen Flow Rate 4 Fraction of Inspired Oxygen 32 03/08/23 04:00 03/08/23 06:27 03/08/23 09:11 Temperature 97.7 F Pulse Rate 53 L 60 61 Respiratory Rate
[2023-03-08 17:10] LABS: Glucose Point of Care 152 mg/dl (65-105)
[2023-03-08 17:51] LABS: Hematocrit 26.9 % (42.0-52.0); Hemoglobin 8.2 g/dL (14.0-18.0)
[2023-03-08] MEDS: PANTOPRAZOLE SODIUM IV 40 MG VIAL IV PUSH (17:55)
[2023-03-08] MEDS: ALBUTEROL SULFATE NEB 2.5 MG/3 ML INH INHALATION (18:05)
[2023-03-08] MEDS: IPRATROPIUM BR 0.02% INH SOLN 0.5 MG/2.5 ML VIAL INHALATION (18:05)
[2023-03-08] MEDS: rOPINIRole HCL 0.5 MG TABLET PO (20:36)
[2023-03-08 21:16] LABS: Glucose Point of Care 112 mg/dl (65-105)
[2023-03-09] VITALS (13 sets, daily range): BP systolic 117–136; BP diastolic 54–65; PULSE 50–72; RESP 16–20; TEMP 35.7–36.3; O2SAT 94–98
[2023-03-09] MEDS: CEFEPIME 2 GM/NS 50 ML 2 GM/50 ML BAG IVPB ×2 (00:07→23:49)
[2023-03-09] MEDS: AZITHROMYCIN 500 MG/NS 250 ML 500 MG/250 ML BAG 250 MG IVPB ×2 (00:38→22:02)
[2023-03-09 06:12] LABS: Creatinine Urine 81.8 mg/dL; Total Protein Urine Random 200 mg/dL; Ur Ttl Prot Creatinine Ratio 2.44 mg/mg (0-0.20); Urea Random Urine 544 MG/DL
[2023-03-09 06:15] LABS: Sodium Urine Random 41 meq/L
[2023-03-09 06:25] LABS: Basophils Absolute Auto 0.1 K/mm3 (0.0-0.1); Basophils Percent Auto 1.5 % (0.2-1.2); Eosinophils Absolute Auto 0.8 K/mm3 (0-0.3); Eosinophils Percent Auto 11.2 % (0-4.4); Hematocrit 28.4 % (42.0-52.0); Immature Granulocyte Absolute 0.08 K/mm3 (0.00-0.031); Immature Granulocyte Percent A 1.1 % (0-0.5); Lymphocytes Absolute Auto 0.69 K/mm3 (0.9-3.2); Lymphocytes Percent Auto 9.3 % (18.3-44.2); Mean Corpuscular HGB Conc 31.7 g/dl (32-36); Mean Corpuscular Hemoglobin 33.5 pg (26-34); Mean Corpuscular Volume 105.6 fl (80-100); Mean Platelet Volume 10.6 fl (7.4-10.4); Monocytes Absolute Auto 0.5 K/mm3 (0.1-0.6); Monocytes Percent Auto 6.5 % (2.6-8.5); Neutrophils Absolute Auto 5.2 K/mm3 (1.3-6.7); Neutrophils Percent Auto 70.4 % (45.5-73.1); Platelet Count Result 339 k/mm3 (150-375); Red Blood Count 2.69 M/mm3 (4.6-6.20); Red Cell Distribution Width 21.2 % (11.5-14.5); White Blood Count 7.4 K/mm3 (4.5-10.0)
[2023-03-09 06:39] LABS: Alanine Aminotransferase 32 U/L (6-50); Alkaline Phosphatase 134 U/L (38-126); Anion Gap 10 mmol/L (8-16); Aspartate Amino Transferase 30 U/L (17-59); Bilirubin,Total 0.4 mg/dL (0.2-1.3); Blood Urea Nitrogen 84 mg/dL (9-20); Calcium 7.6 mg/dL (8.4-10.2); Carbon Dioxide 21 mmol/L (22-30); Chloride 109 mmol/L (98-107); Creatine Kinase 31 U/L (55-170); Estimated CRCL calculation 16 ml/min; Estimated Glomerular Filt Rate 13; Glucose 99 mg/dL (65-110); Potassium 5.1 mmol/L (3.4-5.0); Sodium 140 mmol/L (137-145)
[2023-03-09 07:00] LABS: Anisocytosis 1+ (NORMAL); Burr Cells 1+ (NORMAL); Platelet Clumps Present; Platelet Estimate Adequate (Adequate); Schistocytes 1+ (NORMAL)
[2023-03-09 08:31] LABS: Glucose Point of Care 97 mg/dl (65-105)
--- NOTE | 2023-03-09 09:26 | PM.IMPN ---
Progress Note: A&P Assessment and Plan (1) Acute anemia: Code(s): D64.9 - Anemia, unspecified Status: Acute Assessment and Plan: Check stool occult, iron studies not done prior to transfusion, monitor s/p 2 units pRBCs, likely acute worsening of anemia of chronic disease 2/2 CKD 03/09: resolved, cont to monitor (2) Nosocomial pneumonia: Code(s): J18.9 - Pneumonia, unspecified organism; Y95 - Nosocomial condition Status: Acute Assessment and Plan: Started on vancomycin, cefepime, azithromycin 03/06 Improving (3) Weakness generalized: Code(s): R53.1 - Weakness Status: Acute Assessment and Plan: Multifactorial, complicated by acute illness, worsened by anemia PT/OT (4) Chronic kidney disease, stage IV (severe): Code(s): N18.4 - Chronic kidney disease, stage 4 (severe) Status: Acute Assessment and Plan: Creatinine appears to be around 3.5-3.9, currently 4, monitor nephrology consult pending (5) Type 2 diabetes mellitus with hyperglycemia, with long-term current use of insulin: Code(s): E11.65 - Type 2 diabetes mellitus with hyperglycemia; Z79.4 - exterminator (current) use of insulin Status: Acute Assessment and Plan: Continue home insulin, Accu-Cheks, sliding scale insulin Check A1c Blood glucose reviewed 03/09 (6) Diastolic congestive heart failure: Qualifiers: Heart failure chronicity: chronic Qualified Code(s): I50.32 - Chronic diastolic (congestive) heart failure Code(s): I50.30 - Unspecified diastolic (congestive) heart failure Status: Chronic Assessment and Plan: Slightly hypervolemic, monitor Lasix IV given 03/09 (7) Obstructive sleep apnea: Code(s): G47.33 - Obstructive sleep apnea (adult) (pediatric) Status: Acute Assessment and Plan: CPAP at nighttime (8) Chronic anemia: Code(s): D64.9 - Anemia, unspecified Status: Acute Assessment and Plan: likely secondary to renal failure, monitor defer management to outpatient nephro and hematology, likely need epogen regularly (9) Neurogenic bladder: Code(s): N31.9 - Neuromuscular dysfunction of bladder, unspecified Status: Acute (10) Chronic obstructive pulmonary disease: Code(s): J44.9 - Chronic obstructive pulmonary disease, unspecified Status: Acute Assessment and Plan: Nebulizers as needed, does not appear in exacerbation Plan Left knee tenderness: check LE dopplers, r/o DVT DVT prophylaxis with SCDs GI prophylaxis not indicated Code status full code Subjective Date/time seen: 03/09/23 09:26 Interval history: 77-year-old male with history of diabetes, COPD, sleep apnea is presenting with generalized weakness and currently being treated for possible pneumonia. No overnight events noted. No chest pain or shortness of breath. No nausea, vomiting or diarrhea. No fevers or chills. Hgb dropped, received transfusion. Stable now. Some LE edema, pain behind left knee noted. Review of Systems Review of Systems: 12 point review of systems was assessed and was negative except as noted in the HPI Exam Narrative: General: No acute distress, alert and oriented per baseline HEENT: Atraumatic, normocephalic, mucous membranes moist CV: Regular rate and rhythm, S1, S2 Lungs: Clear to auscultation bilaterally, no rales or crackles noted, no wheezes Abdomen: Soft, nontender, nondistended Extremities: Normal to inspection, 2+ pitting edema noted, TTP behind left knee Skin: No rashes noted, no lesions or wounds seen Psych: Euthymic, normal affect Objective Data Vital Signs Vital Signs: Vital Signs - 24 hr 03/08/23 10:02 03/08/23 10:18 03/08/23 11:18 Temperature 97.5 F L 97.4 F L 97.5 F L Pulse Rate 60 59 L 60 Respiratory Rate 20 18 18 Blood Pressure 129/57 L 124/47 L 128/53 L Pulse Oximetry 96 95 97 Oxygen
[2023-03-09] MEDS: ASPIRIN 81 MG CHEWABLE TABLET PO (09:27)
[2023-03-09] MEDS: GABAPENTIN 100 MG CAPSULE PO ×2 (09:28→17:45)
[2023-03-09] MEDS: carvediloL 25 MG TABLET PO (09:28)
[2023-03-09] MEDS: buPROPion HCL 75 MG TABLET PO ×2 (09:28→21:23)
[2023-03-09] MEDS: hydrALAZINE HCL 25 MG TABLET PO ×3 (09:28→18:34)
[2023-03-09] MEDS: hydroCHLOROthiazide 25 MG TABLET PO (09:29)
[2023-03-09] MEDS: SERTRALINE HCL 25 MG TABLET PO (09:29)
[2023-03-09] MEDS: PANTOPRAZOLE 40 MG TABLET PO (09:29)
[2023-03-09] MEDS: amLODIPine BESYLATE 5 MG TABLET 10 MG PO (09:31)
[2023-03-09] MEDS: INSULIN GLARGINE (*BKC) 100 UNITS/ML 15 UNITS SUB-Q (09:31)
[2023-03-09 10:15] LABS: Eosinophil Urine None Seen % (None Seen); Urine Eos QC 2nd Tech Confirmed
[2023-03-09 12:03] LABS: Glucose Point of Care 167 mg/dl (65-105)
[2023-03-09] MEDS: INSULIN ASPART (*BKC) 100 UNITS/ML 8 UNITS SUB-Q ×2 (12:12→17:46)
[2023-03-09 13:02] LABS: IFOB Positive Control Positive
[2023-03-09 13:12] LABS: Immunochemical Fecal Occult Bl Positive (N)
--- NOTE | 2023-03-09 14:31 | PM.PNNEP ---
Progress Note: A&P Assessment and Plan (1) VISHNU (acute kidney injury): Code(s): N17.9 - Acute kidney failure, unspecified Status: Acute Assessment and Plan: as noted by trend of labs since admission (and previous admissions/hospitalizations) likely related to several issues: significant anemia infection (possible pneumonia) prerenal factors CKD progression (?) evaluation to date: urine eosinophils negative some suggestion of prerenal azotemia by urine electrolytes protienuria noted renal ultrasound (done in rehab) unremarkable follow trend of repeat labs and UOP (2) Chronic kidney disease, stage IV (severe): Code(s): N18.4 - Chronic kidney disease, stage 4 (severe) Status: Acute Assessment and Plan: creatinine ~ 1.8 - 2.7mg/dl by outpatient records follows with Dr. Davis Ny for CKD managmenet suspect due to HTN, DM, vascular disease, and age-related change HOWEVER, since last hospitalization, creatinine running higher...closer to 3.3 - 3.6mg/dl (new baseline?) (3) Pneumonia: Qualifiers: Laterality: left Lung location: lower lobe of lung Pneumonia type: due to unspecified organism Qualified Code(s): J18.9 - Pneumonia, unspecified organism Code(s): J18.9 - Pneumonia, unspecified organism Status: Chronic Assessment and Plan: as suggested by admission imaging given recent/recurrent hospitalizations, being treated as nosocomial follow culture data on antibiotics (4) Anemia: Code(s): D64.9 - Anemia, unspecified Status: Chronic Assessment and Plan: as noted on admission acute on chronic suspect partly related to underlying CKD PRBC transfusion per protocol start empiric SALLY while hospitalized follow trend of H/H (5) Hypertension: Qualifiers: Hypertension type: primary hypertension Qualified Code(s): I10 - Essential (primary) hypertension Code(s): I10 - Essential (primary) hypertension Status: Chronic Assessment and Plan: reasonable control at this time possible :overcontrol since recent issues with HTN urgency (?) will d/c hydralazine for now continue current medications follow trend of hemodynamics (6) Diabetes mellitus with chronic kidney disease: Code(s): E11.22 - Type 2 diabetes mellitus with diabetic chronic kidney disease Status: Chronic Assessment and Plan: follow accu-cheks glycemic control per hospitalisits Will continue to follow. Subjective Date/time seen: 03/09/23 14:31 Interval history: Follow-up for acute kidney injury/acute renal failure on chronic kidney disease. Tolerated PRBC transfusion yesterday with appropriate incrementation of H/H; no significant change in renal function by trend of labs; no acute distress voiced aside from some left knee discomfort; no other issues/events overnight or earlier this morning. Exam Narrative: General: elderly but WD/WN male in NAD Heart: normal S1 and S2; no rub Lungs: clear anteriorly but decreased at bases Abdomen: soft, nontender, nondistended, positive bowel sounds Extremities: no cyanosis or clubbing; 2+ edema Skin: warm and dry Objective Data Vital Signs Vital Signs: Vital Signs Temp Pulse Resp BP Pulse Ox O2 Del Method O2 Flow Rate 03/09/23 14:00 96.3 F L 65 16 127/60 98 03/09/23 09:25 95 Nasal Cannula 3 03/09/23 12:00 58 L 03/09/23 09:25 95 Nasal Cannula 3 03/09/23 08:00 72 03/09/23 09:28 68 03/09/23 06:00 97.3 F L 70 20 136/65 95 03/09/23 04:00 66 03/09/23 00:00 65 03/08/23 20:00 65 03/08/23 20:30 95 Nasal Cannula 3 03/08/23 22:40 64 14 96 Autopap 03/08/23 22:00 97.4 F L 63 19 122/67 95 03/08/23 20:37 63 03/08/23 19:46 97.7 F 63 20 128/59 L 95 Intake/Output Intake/Output: Intake & Output 07
--- NOTE | 2023-03-09 14:31 | P.PNNP_ITS ---
Progress Note: A&P Assessment and Plan (1) VISHNU (acute kidney injury): Code(s): N17.9 - Acute kidney failure, unspecified Status: Acute Assessment and Plan: * as noted by trend of labs since admission (and previous admissions/hospitalizations) * likely related to several issues: * significant anemia * infection (possible pneumonia) * prerenal factors * CKD progression (?) * evaluation to date: * urine eosinophils negative * some suggestion of prerenal azotemia by urine electrolytes * protienuria noted * renal ultrasound (done in rehab) unremarkable * follow trend of repeat labs and UOP (2) Chronic kidney disease, stage IV (severe): Code(s): N18.4 - Chronic kidney disease, stage 4 (severe) Status: Acute Assessment and Plan: * creatinine ~ 1.8 - 2.7mg/dl by outpatient records * follows with Dr. Davis Ny for CKD managmenet * suspect due to HTN, DM, vascular disease, and age-related change * HOWEVER, since last hospitalization, creatinine running higher...closer to 3.3 - 3.6mg/dl (new baseline?) (3) Pneumonia: Qualifiers: Laterality: left Lung location: lower lobe of lung Pneumonia type: due to unspecified organism Qualified Code(s): J18.9 - Pneumonia, unspecified [facility] Code(s): J18.9 - Pneumonia, unspecified organism Status: Chronic Assessment and Plan: * as suggested by admission imaging * given recent/recurrent hospitalizations, being treated as nosocomial * follow culture data * on antibiotics (4) Anemia: Code(s): D64.9 - Anemia, unspecified Status: Chronic Assessment and Plan: * as noted on admission * acute on chronic * suspect partly related to underlying CKD * PRBC transfusion per protocol * start empiric SALLY while hospitalized * follow trend of H/H (5) Hypertension: Qualifiers: Hypertension type: primary hypertension Qualified Code(s): I10 - Essential (primary) hypertension Code(s): I10 - Essential (primary) hypertension Status: Chronic Assessment and Plan: * reasonable control at this time * possible :overcontrol since recent issues with HTN urgency (?) * will d/c hydralazine for now * continue current medications * follow trend of hemodynamics (6) Diabetes mellitus with chronic kidney disease: Code(s): E11.22 - Type 2 diabetes mellitus with diabetic chronic kidney disease Status: Chronic Assessment and Plan: * follow accu-cheks * glycemic control per hospitalisits Will continue to follow. Subjective Date/time seen: 03/09/23 14:31 Interval history: Follow-up for acute kidney injury/acute renal failure on chronic kidney disease. Tolerated PRBC transfusion yesterday with appropriate incrementation of H/H; no significant change in renal function by trend of labs; no acute distress voiced aside from some left knee discomfort; no other issues/events overnight or earlier this morning. Exam Narrative: General: elderly but WD/WN male in NAD Heart: normal S1 and S2; no rub Lungs: clear anteriorly but decreased at bases Abdomen: soft, nontender, nondistended, positive bowel sounds Extremities: no cyanosis or clubbing; 2+ edema Skin: warm and dry Objective Data Vital Signs Vital Signs: Vital Signs Temp Pulse Resp BP Pulse Ox O2 Del Method O2 Flow Rate
[2023-03-09 17:03] LABS: Glucose Point of Care 130 mg/dl (65-105)
[2023-03-09] MEDS: FUROSEMIDE INJ 40 MG/4 ML VIAL IV PUSH (17:46)
[2023-03-09 21:11] LABS: Glucose Point of Care 127 mg/dl (65-105)
[2023-03-09] MEDS: rOPINIRole HCL 0.5 MG TABLET PO (21:23)
[2023-03-09] MEDS: MELATONIN 5 MG TABLET PO (21:57)
[2023-03-10] VITALS (11 sets, daily range): BP systolic 121–148; BP diastolic 56–59; PULSE 56–92; RESP 16–22; TEMP 35.8–36.4; O2SAT 95–99
[2023-03-10 05:59] LABS: Basophils Absolute Auto 0.1 K/mm3 (0.0-0.1); Basophils Percent Auto 1.2 % (0.2-1.2); Eosinophils Absolute Auto 0.8 K/mm3 (0-0.3); Eosinophils Percent Auto 12.5 % (0-4.4); Hematocrit 28.1 % (42.0-52.0); Hemoglobin 8.9 g/dL (14.0-18.0); Immature Granulocyte Absolute 0.06 K/mm3 (0.00-0.031); Immature Granulocyte Percent A 0.9 % (0-0.5); Lymphocytes Percent Auto 9.2 % (18.3-44.2); Mean Corpuscular HGB Conc 31.7 g/dl (32-36); Mean Corpuscular Hemoglobin 33.1 pg (26-34); Mean Corpuscular Volume 104.5 fl (80-100); Mean Platelet Volume 10.7 fl (7.4-10.4); Monocytes Absolute Auto 0.5 K/mm3 (0.1-0.6); Monocytes Percent Auto 7.9 % (2.6-8.5); Neutrophils Absolute Auto 4.4 K/mm3 (1.3-6.7); Neutrophils Percent Auto 68.3 % (45.5-73.1); Platelet Count Result 346 k/mm3 (150-375); Red Blood Count 2.69 M/mm3 (4.6-6.20); Red Cell Distribution Width 20.5 % (11.5-14.5); White Blood Count 6.5 K/mm3 (4.5-10.0)
[2023-03-10 06:27] LABS: Alanine Aminotransferase 36 U/L (6-50); Albumin Level 2.9 g/dL (3.5-5.1); Alkaline Phosphatase 139 U/L (38-126); Anion Gap 7 mmol/L (8-16); Aspartate Amino Transferase 46 U/L (17-59); Bilirubin,Total 0.3 mg/dL (0.2-1.3); Blood Urea Nitrogen 88 mg/dL (9-20); Calcium 7.6 mg/dL (8.4-10.2); Carbon Dioxide 21 mmol/L (22-30); Chloride 107 mmol/L (98-107); Estimated CRCL calculation 16 ml/min; Estimated Glomerular Filt Rate 13; Glucose 43 mg/dL (65-110); Potassium 5.1 mmol/L (3.4-5.0); Sodium 135 mmol/L (137-145)
[2023-03-10 06:35] LABS: Vancomycin Random 8.6 ug/mL (10-20)
[2023-03-10 08:26] LABS: Glucose Point of Care 94 mg/dl (65-105)
--- NOTE | 2023-03-10 09:13 | PM.IMPN ---
Progress Note: A&P Assessment and Plan (1) Acute anemia: Code(s): D64.9 - Anemia, unspecified Status: Acute Assessment and Plan: Check stool occult, iron studies not done prior to transfusion, monitor s/p 2 units pRBCs, likely acute worsening of anemia of chronic disease 2/2 CKD 03/09: resolved, cont to monitor (2) Nosocomial pneumonia: Code(s): J18.9 - Pneumonia, unspecified organism; Y95 - Nosocomial condition Status: Acute Assessment and Plan: Started on vancomycin, cefepime, azithromycin 03/06 Improving 03/10: MRSA swab came back positive, de-escalated to doxycycline to complete 10 day course of abx (3) Weakness generalized: Code(s): R53.1 - Weakness Status: Acute Assessment and Plan: Multifactorial, complicated by acute illness, worsened by anemia PT/OT (4) Chronic kidney disease, stage IV (severe): Code(s): N18.4 - Chronic kidney disease, stage 4 (severe) Status: Acute Assessment and Plan: Creatinine appears to be around 3.5-3.9, currently 4, monitor nephrology consult pending 03/10: vanc, lasix and HCTZ d/c today, assess response tomorrow (5) Type 2 diabetes mellitus with hyperglycemia, with long-term current use of insulin: Code(s): E11.65 - Type 2 diabetes mellitus with hyperglycemia; Z79.4 - [facility] terminal (current) use of insulin Status: Acute Assessment and Plan: Continue home insulin, Accu-Cheks, sliding scale insulin A1c 7.9 Blood glucose reviewed 03/10, insulin decreased, FBG 94 (6) Diastolic congestive heart failure: Qualifiers: Heart failure chronicity: chronic Qualified Code(s): I50.32 - Chronic diastolic (congestive) heart failure Code(s): I50.30 - Unspecified diastolic (congestive) heart failure Status: Chronic Assessment and Plan: Slightly hypervolemic, monitor Lasix IV given 03/09 03/10: d/c lasix and HCTZ, assess edema tomorrow (7) Obstructive sleep apnea: Code(s): G47.33 - Obstructive sleep apnea (adult) (pediatric) Status: Acute Assessment and Plan: CPAP at nighttime (8) Chronic anemia: Code(s): D64.9 - Anemia, unspecified Status: Acute Assessment and Plan: likely secondary to renal failure, monitor defer management to outpatient nephro and hematology, likely need epogen regularly (9) Neurogenic bladder: Code(s): N31.9 - Neuromuscular dysfunction of bladder, unspecified Status: Acute (10) Chronic obstructive pulmonary disease: Code(s): J44.9 - Chronic obstructive pulmonary disease, unspecified Status: Acute Assessment and Plan: Nebulizers as needed, does not appear in exacerbation Plan Left knee tenderness: check LE dopplers, r/o DVT--dopplers negative DVT prophylaxis with SCDs GI prophylaxis not indicated Code status full code Subjective Date/time seen: 03/10/23 09:13 Interval history: 77-year-old male with history of diabetes, COPD, sleep apnea is presenting with generalized weakness and currently being treated for possible pneumonia. No overnight events noted. No chest pain or shortness of breath. No nausea, vomiting or diarrhea. No fevers or chills. Still with leg swelling. No pain. Review of Systems Review of Systems: 12 point review of systems was assessed and was negative except as noted in the HPI Exam Narrative: General: No acute distress, alert and oriented per baseline HEENT: Atraumatic, normocephalic, mucous membranes moist CV: Regular rate and rhythm, S1, S2 Lungs: Clear to auscultation bilaterally, no rales or crackles noted, no wheezes Abdomen: Soft, nontender, nondistended Extremities: Normal to inspection, 1+ pitting edema noted Skin: No rashes noted, no lesions or wounds seen Psych: Euthymic, normal affect Objective Data Vital Signs Vital Signs: Vital Signs - 24 hr 03/09/23 09:28 03/09/23 09:25
[2023-03-10] MEDS: ASPIRIN 81 MG CHEWABLE TABLET PO (09:47)
[2023-03-10] MEDS: amLODIPine BESYLATE 5 MG TABLET 10 MG PO (09:47)
[2023-03-10] MEDS: hydrALAZINE HCL 25 MG TABLET PO ×2 (09:48→12:28)
[2023-03-10] MEDS: SERTRALINE HCL 25 MG TABLET PO (09:48)
[2023-03-10] MEDS: buPROPion HCL 75 MG TABLET PO ×2 (09:48→20:17)
[2023-03-10] MEDS: GABAPENTIN 100 MG CAPSULE PO ×2 (09:48→17:18)
[2023-03-10 10:50] LABS: Glucose Point of Care 42 mg/dl (65-105)
[2023-03-10 10:50] LABS: Glucose Point of Care 65 mg/dl (65-105)
[2023-03-10] MEDS: DOXYCYCLINE HYCLATE 100 MG TABLET PO ×2 (11:46→20:16)
[2023-03-10] MEDS: carvediloL 12.5 MG TABLET PO ×2 (11:46→20:17)
[2023-03-10 12:11] LABS: Glucose Point of Care 209 mg/dl (65-105)
[2023-03-10] MEDS: INSULIN ASPART (*BKC) 100 UNITS/ML 7 UNITS SUB-Q ×2 (12:28→17:17)
--- NOTE | 2023-03-10 12:35 | P.PNNP_ITS ---
Progress Note: A&P Assessment and Plan (1) VISHNU (acute kidney injury): Code(s): N17.9 - Acute kidney failure, unspecified Status: Acute Assessment and Plan: * as noted by trend of labs since admission (and previous admissions/hospitalizations in the last couple of months) * likely related to several issues: * significant anemia * infection (possible pneumonia) * prerenal factors * CKD progression (?) * evaluation to date: * urine eosinophils negative * some suggestion of prerenal azotemia by urine electrolytes * proteinuria noted * renal ultrasound (done in rehab) unremarkable * PRN diuretics to maintain volume status * follow trend of repeat labs and UOP (2) Chronic kidney disease, stage IV (severe): Code(s): N18.4 - Chronic kidney disease, stage 4 (severe) Status: Acute Assessment and Plan: * creatinine ~ 1.8 - 2.7mg/dl by outpatient records * follows with Dr. Davis Ny for CKD managmenet * suspect due to HTN, DM, vascular disease, and age-related change * HOWEVER, since last hospitalization, creatinine running higher...closer to 3.3 - 3.6mg/dl (new baseline?) (3) Pneumonia: Qualifiers: Laterality: left Lung location: lower lobe of lung Pneumonia type: due to unspecified organism Qualified Code(s): J18.9 - Pneumonia, unspecified organism Code(s): J18.9 - Pneumonia, unspecified organism Status: Chronic Assessment and Plan: * as suggested by admission imaging * given recent/recurrent hospitalizations, being treated as nosocomial * follow culture data * on antibiotics (4) Anemia: Code(s): D64.9 - Anemia, unspecified Status: Chronic Assessment and Plan: * as noted on admission * acute on chronic * suspect partly related to underlying CKD * PRBC transfusion per protocol * on SALLY while hospitalized * follow trend of H/H (5) Hypertension: Qualifiers: Hypertension type: primary hypertension Qualified Code(s): I10 - Essential (primary) hypertension Code(s): I10 - Essential (primary) hypertension Status: Chronic Assessment and Plan: * reasonable control at this time * possible :overcontrol since recent issues with HTN urgency (?) * off hydralazine * consider backing off on amlodipine as well * follow trend of hemodynamics (6) Diabetes mellitus with chronic kidney disease: Code(s): E11.22 - Type 2 diabetes mellitus with diabetic chronic kidney disease Status: Chronic Assessment and Plan: * follow accu-cheks * glycemic control per hospitalisits Will continue to follow. Subjective Date/time seen: 03/10/23 12:35 Interval history: Follow-up for acute kidney injury/acute renal failure on chronic kidney disease. Sitting up in chair in no apparent distress on my visit; requiring supplemental oxygen currently; given IV diuretics yesterday due to concerns of hypervolemia in the context of PRBC transfusion; renal function about the same (no worse but no better); reasonable urine output noted; no apparent distress. Exam Narrative: General: elderly but WD/WN male in NAD Heart: normal S1 and S2; no rub Lungs: clear anteriorly but decreased at bases Abdomen: soft, nontender, nondistended, positive bowel sounds Extremities: no cyanosis or clubbing; 1 - 2+ edema Skin: warm and intact Objective Data Vital Signs Vital Signs:
--- NOTE | 2023-03-10 12:35 | PM.PNNEP ---
Progress Note: A&P Assessment and Plan (1) VISHNU (acute kidney injury): Code(s): N17.9 - Acute kidney failure, unspecified Status: Acute Assessment and Plan: as noted by trend of labs since admission (and previous admissions/hospitalizations in the last couple of months) likely related to several issues: significant anemia infection (possible pneumonia) prerenal factors CKD progression (?) evaluation to date: urine eosinophils negative some suggestion of prerenal azotemia by urine electrolytes proteinuria noted renal ultrasound (done in rehab) unremarkable PRN diuretics to maintain volume status follow trend of repeat labs and UOP (2) Chronic kidney disease, stage IV (severe): Code(s): N18.4 - Chronic kidney disease, stage 4 (severe) Status: Acute Assessment and Plan: creatinine ~ 1.8 - 2.7mg/dl by outpatient records follows with Dr. Davis Ny for CKD managmenet suspect due to HTN, DM, vascular disease, and age-related change HOWEVER, since last hospitalization, creatinine running higher...closer to 3.3 - 3.6mg/dl (new baseline?) (3) Pneumonia: Qualifiers: Laterality: left Lung location: lower lobe of lung Pneumonia type: due to unspecified organism Qualified Code(s): J18.9 - Pneumonia, unspecified organism Code(s): J18.9 - Pneumonia, unspecified organism Status: Chronic Assessment and Plan: as suggested by admission imaging given recent/recurrent hospitalizations, being treated as nosocomial follow culture data on antibiotics (4) Anemia: Code(s): D64.9 - Anemia, unspecified Status: Chronic Assessment and Plan: as noted on admission acute on chronic suspect partly related to underlying CKD PRBC transfusion per protocol on SALLY while hospitalized follow trend of H/H (5) Hypertension: Qualifiers: Hypertension type: primary hypertension Qualified Code(s): I10 - Essential (primary) hypertension Code(s): I10 - Essential (primary) hypertension Status: Chronic Assessment and Plan: reasonable control at this time possible :overcontrol since recent issues with HTN urgency (?) off hydralazine consider backing off on amlodipine as well follow trend of hemodynamics (6) Diabetes mellitus with chronic kidney disease: Code(s): E11.22 - Type 2 diabetes mellitus with diabetic chronic kidney disease Status: Chronic Assessment and Plan: follow accu-cheks glycemic control per hospitalisits Will continue to follow. Subjective Date/time seen: 03/10/23 12:35 Interval history: Follow-up for acute kidney injury/acute renal failure on chronic kidney disease. Sitting up in chair in no apparent distress on my visit; requiring supplemental oxygen currently; given IV diuretics yesterday due to concerns of hypervolemia in the context of PRBC transfusion; renal function about the same (no worse but no better); reasonable urine output noted; no apparent distress. Exam Narrative: General: elderly but WD/WN male in NAD Heart: normal S1 and S2; no rub Lungs: clear anteriorly but decreased at bases Abdomen: soft, nontender, nondistended, positive bowel sounds Extremities: no cyanosis or clubbing; 1 - 2+ edema Skin: warm and intact Objective Data Vital Signs Vital Signs: Vital Signs Temp Pulse Resp BP Pulse Ox O2 Del Method O2 Flow Rate 03/10/23 12:00 66 03/10/23 11:46 65 03/10/23 08:00 56 L 03/10/23 09:42 95 Nasal Cannula 3 03/10/23 06:00 96.7 F L 56 L 22 H 121/56 L 95 03/10/23 04:00 62 03/10/23 00:00 59 L 03/09/23 21:40 20 94 Nasal Cannula 3 03/09/23 21:37 96.5 F L 51 L 19 117/54 L 98 03/09/23 20:00 50 L 03/09/23 20:00 50 L 16 98 Nasal Cannula 3 03/09/23 21:24 50 L 03/09/23 16:00 53 L Intake/Output Intake
[2023-03-10 17:47] LABS: Glucose Point of Care 221 mg/dl (65-105)
[2023-03-10] MEDS: EPOETIN ALFA 20,000 UNITS/ML VIAL 20000 UNITS SUB-Q (18:30)
[2023-03-10 19:51] LABS: Glucose Point of Care 155 mg/dl (65-105)
[2023-03-10] MEDS: MELATONIN 5 MG TABLET PO (20:17)
[2023-03-10] MEDS: rOPINIRole HCL 0.5 MG TABLET PO (20:17)
[2023-03-11] VITALS (14 sets, daily range): BP systolic 118–153; BP diastolic 53–64; PULSE 52–85; RESP 16–20; TEMP 35.8–36.4; O2SAT 95–97
[2023-03-11] MEDS: CALCIUM CARBONATE (TUMS) 500 MG (200 MG ELEMENTAL) PO (05:14)
[2023-03-11 05:26] LABS: Basophils Absolute Auto 0.1 K/mm3 (0.0-0.1); Basophils Percent Auto 1.4 % (0.2-1.2); Eosinophils Absolute Auto 0.8 K/mm3 (0-0.3); Eosinophils Percent Auto 11.5 % (0-4.4); Hematocrit 28.8 % (42.0-52.0); Hemoglobin 8.9 g/dL (14.0-18.0); Immature Granulocyte Absolute 0.18 K/mm3 (0.00-0.031); Immature Granulocyte Percent A 2.5 % (0-0.5); Lymphocytes Absolute Auto 0.66 K/mm3 (0.9-3.2); Lymphocytes Percent Auto 9.2 % (18.3-44.2); Mean Corpuscular HGB Conc 30.9 g/dl (32-36); Mean Corpuscular Hemoglobin 32.6 pg (26-34); Mean Corpuscular Volume 105.5 fl (80-100); Mean Platelet Volume 10.9 fl (7.4-10.4); Monocytes Absolute Auto 0.6 K/mm3 (0.1-0.6); Monocytes Percent Auto 8.4 % (2.6-8.5); Neutrophils Absolute Auto 4.8 K/mm3 (1.3-6.7); Platelet Count Result 330 k/mm3 (150-375); Red Blood Count 2.73 M/mm3 (4.6-6.20); Red Cell Distribution Width 19.9 % (11.5-14.5); White Blood Count 7.2 K/mm3 (4.5-10.0)
[2023-03-11 05:45] LABS: Alanine Aminotransferase 31 U/L (6-50); Albumin Level 2.9 g/dL (3.5-5.1); Alkaline Phosphatase 139 U/L (38-126); Anion Gap 7 mmol/L (8-16); Aspartate Amino Transferase 27 U/L (17-59); Bilirubin,Total 0.3 mg/dL (0.2-1.3); Blood Urea Nitrogen 87 mg/dL (9-20); Calcium 7.6 mg/dL (8.4-10.2); Carbon Dioxide 20 mmol/L (22-30); Chloride 106 mmol/L (98-107); Estimated CRCL calculation 16 ml/min; Estimated Glomerular Filt Rate 13; Glucose 112 mg/dL (65-110); Potassium 5.4 mmol/L (3.4-5.0); Sodium 133 mmol/L (137-145)
[2023-03-11 07:04] LABS: Glucose Point of Care 113 mg/dl (65-105)
[2023-03-11 08:37] LABS: Glucose Point of Care 123 mg/dl (65-105)
[2023-03-11] MEDS: ASPIRIN 81 MG CHEWABLE TABLET PO (09:02)
[2023-03-11] MEDS: buPROPion HCL 75 MG TABLET PO ×2 (09:03→20:06)
[2023-03-11] MEDS: DOXYCYCLINE HYCLATE 100 MG TABLET PO ×2 (09:03→20:06)
[2023-03-11] MEDS: carvediloL 12.5 MG TABLET PO ×2 (09:03→20:05)
[2023-03-11] MEDS: amLODIPine BESYLATE 5 MG TABLET 10 MG PO (09:03)
[2023-03-11] MEDS: GABAPENTIN 100 MG CAPSULE PO ×2 (09:03→17:35)
[2023-03-11] MEDS: SERTRALINE HCL 25 MG TABLET PO (09:03)
[2023-03-11] MEDS: INSULIN GLARGINE (*BKC) 100 UNITS/ML 12 UNITS SUB-Q (09:05)
[2023-03-11] MEDS: INSULIN ASPART (*BKC) 100 UNITS/ML 7 UNITS SUB-Q ×3 (09:06→17:35)
[2023-03-11] MEDS: BUMETANIDE INJ 1 MG/4 ML VIAL 1.5 MG IV PUSH (09:10)
--- NOTE | 2023-03-11 10:34 | PM.IMPN ---
Progress Note: A&P Assessment and Plan (1) Chronic kidney disease, stage IV (severe): Code(s): N18.4 - Chronic kidney disease, stage 4 (severe) Status: Acute Assessment and Plan: Creatinine appears to be around 3.5-3.9, currently 4, monitor nephrology consult pending 03/10: vanc, lasix and HCTZ d/c today, assess response tomorrow 03/11: unchanged, appreciate nephrology (2) Nosocomial pneumonia: Code(s): J18.9 - Pneumonia, unspecified organism; Y95 - Nosocomial condition Status: Acute Assessment and Plan: Started on vancomycin, cefepime, azithromycin 03/06 Improving 03/10: MRSA swab came back positive, de-escalated to doxycycline to complete 10 day course of abx (3) Acute anemia: Code(s): D64.9 - Anemia, unspecified Status: Acute Assessment and Plan: Check stool occult, iron studies not done prior to transfusion, monitor s/p 2 units pRBCs, likely acute worsening of anemia of chronic disease 2/2 CKD 03/09: resolved, cont to monitor (4) Weakness generalized: Code(s): R53.1 - Weakness Status: Acute Assessment and Plan: Multifactorial, complicated by acute illness, worsened by anemia PT/OT (5) Type 2 diabetes mellitus with hyperglycemia, with long-term current use of insulin: Code(s): E11.65 - Type 2 diabetes mellitus with hyperglycemia; Z79.4 - [facility] (current) use of insulin Status: Acute Assessment and Plan: Continue home insulin, Accu-Cheks, sliding scale insulin A1c 7.9 Blood glucose reviewed 03/11, improved on lower dose of insulin (6) Diastolic congestive heart failure: Qualifiers: Heart failure chronicity: chronic Qualified Code(s): I50.32 - Chronic diastolic (congestive) heart failure Code(s): I50.30 - Unspecified diastolic (congestive) heart failure Status: Chronic Assessment and Plan: Slightly hypervolemic, monitor Lasix IV given 03/09 03/10: d/c lasix and HCTZ, assess edema tomorrow 03/11: worsened swelling today, bumex given x 1 (7) Obstructive sleep apnea: Code(s): G47.33 - Obstructive sleep apnea (adult) (pediatric) Status: Acute Assessment and Plan: CPAP at nighttime (8) Chronic anemia: Code(s): D64.9 - Anemia, unspecified Status: Acute Assessment and Plan: likely secondary to renal failure, monitor defer management to outpatient nephro and hematology, likely need epogen regularly (9) Neurogenic bladder: Code(s): N31.9 - Neuromuscular dysfunction of bladder, unspecified Status: Acute (10) Chronic obstructive pulmonary disease: Code(s): J44.9 - Chronic obstructive pulmonary disease, unspecified Status: Acute Assessment and Plan: Nebulizers as needed, does not appear in exacerbation Plan Left knee tenderness: check LE dopplers, r/o DVT--dopplers negative DVT prophylaxis with SCDs GI prophylaxis not indicated Code status full code Subjective Date/time seen: 03/11/23 10:34 Interval history: 77-year-old male with history of diabetes, COPD, sleep apnea is presenting with generalized weakness and currently being treated for possible pneumonia. No overnight events noted. No chest pain or shortness of breath. No nausea, vomiting or diarrhea. No fevers or chills. Still with leg swelling. No pain. Review of Systems Review of Systems: 12 point review of systems was assessed and was negative except as noted in the HPI Exam Narrative: General: No acute distress, alert and oriented per baseline HEENT: Atraumatic, normocephalic, mucous membranes moist CV: Regular rate and rhythm, S1, S2 Lungs: Clear to auscultation bilaterally, no rales or crackles noted, no wheezes Abdomen: Soft, nontender, nondistended Extremities: Normal to inspection, 2+ pitting edema noted Skin: No rashes noted, no lesions or wounds seen Psych: Euthymic, normal affect Obj
--- NOTE | 2023-03-11 11:44 | PM.PNNEP ---
Progress Note: A&P Assessment and Plan (1) VISHNU (acute kidney injury): Code(s): N17.9 - Acute kidney failure, unspecified Status: Acute Assessment and Plan: as noted by trend of labs since admission (and previous admissions/hospitalizations in the last couple of months) likely related to several issues: significant anemia infection (possible pneumonia) prerenal factors CKD progression (?) evaluation to date: urine eosinophils negative some suggestion of prerenal azotemia by urine electrolytes proteinuria noted renal ultrasound (done in rehab) unremarkable PRN diuretics to maintain volume status - will give a dose IV bumex today follow trend of repeat labs and UOP (2) Chronic kidney disease, stage IV (severe): Code(s): N18.4 - Chronic kidney disease, stage 4 (severe) Status: Acute Assessment and Plan: creatinine ~ 1.8 - 2.7mg/dl by outpatient records follows with Dr. Davis Ny for CKD managmenet suspect due to HTN, DM, vascular disease, and age-related change HOWEVER, since last hospitalization, creatinine running higher...closer to 3.3 - 3.6mg/dl (new baseline?) (3) Pneumonia: Qualifiers: Laterality: left Lung location: lower lobe of lung Pneumonia type: due to unspecified organism Qualified Code(s): J18.9 - Pneumonia, unspecified organism Code(s): J18.9 - Pneumonia, unspecified organism Status: Chronic Assessment and Plan: as suggested by admission imaging given recent/recurrent hospitalizations, being treated as nosocomial follow culture data on antibiotics (4) Anemia: Code(s): D64.9 - Anemia, unspecified Status: Chronic Assessment and Plan: as noted on admission acute on chronic suspect partly related to underlying CKD PRBC transfusion per protocol on [facility] while hospitalized follow trend of H/H (5) Hypertension: Qualifiers: Hypertension type: primary hypertension Qualified Code(s): I10 - Essential (primary) hypertension Code(s): I10 - Essential (primary) hypertension Status: Chronic Assessment and Plan: reasonable control at this time possible :overcontrol since recent issues with HTN urgency (?) off hydralazine consider backing off on amlodipine as well follow trend of hemodynamics (6) Diabetes mellitus with chronic kidney disease: Code(s): E11.22 - Type 2 diabetes mellitus with diabetic chronic kidney disease Status: Chronic Assessment and Plan: follow accu-cheks glycemic control per hospitalisits Will continue to follow. Subjective Date/time seen: 03/11/23 11:44 Interval history: Follow-up for acute kidney injury/acute renal failure on chronic kidney disease. Renal function remains unchanged however CXR this AM notable for congestion/pulmonary edema although patient does not report any worsening shortness of breath; no new issues/events overnight or earlier this morning; no apparent distress noted. Exam Narrative: General: elderly but WD/WN male in NAD Heart: normal S1 and S2; no rub Lungs: clear anteriorly but decreased at bases Abdomen: soft, nontender, nondistended, positive bowel sounds Extremities: no cyanosis or clubbing; 1 - 2+ edema Skin: no rash Objective Data Vital Signs Vital Signs: Vital Signs Temp Pulse Resp BP Pulse Ox O2 Del Method O2 Flow Rate 03/11/23 09:10 95 Nasal Cannula 3 03/11/23 09:10 66 03/11/23 09:03 67 03/11/23 06:00 97.6 F 66 18 153/64 H 97 03/11/23 04:00 61 03/11/23 00:00 61 03/10/23 20:00 58 L 16 98 Nasal Cannula 3 03/10/23 20:00 58 L 03/10/23 19:58 97.6 F 59 L 18 148/56 H 99 03/10/23 16:00 59 L 03/10/23 14:00 96.5 F L 92 18 129/59 L 99 Intake/Output Intake/Output: Intake & Output 03/08/23 03/09/23 03/10/23 03/11/23 23:59 23:59 23:59 23:59 Intak
--- NOTE | 2023-03-11 11:44 | P.PNNP_ITS ---
Progress Note: A&P Assessment and Plan (1) VISHNU (acute kidney injury): Code(s): N17.9 - Acute kidney failure, unspecified Status: Acute Assessment and Plan: * as noted by trend of labs since admission (and previous admissions/hospitalizations in the last couple of months) * likely related to several issues: * significant anemia * infection (possible pneumonia) * prerenal factors * CKD progression (?) * evaluation to date: * urine eosinophils negative * some suggestion of prerenal azotemia by urine electrolytes * proteinuria noted * renal ultrasound (done in rehab) unremarkable * PRN diuretics to maintain volume status - will give a dose IV bumex today * follow trend of repeat labs and UOP (2) Chronic kidney disease, stage IV (severe): Code(s): N18.4 - Chronic kidney disease, stage 4 (severe) Status: Acute Assessment and Plan: * creatinine ~ 1.8 - 2.7mg/dl by outpatient records * follows with Dr. Davis Ny for CKD managmenet * suspect due to HTN, DM, vascular disease, and age-related change * HOWEVER, since last hospitalization, creatinine running higher...closer to 3.3 - 3.6mg/dl (new baseline?) (3) Pneumonia: Qualifiers: Laterality: left Lung location: lower lobe of lung Pneumonia type: due to unspecified organism Qualified Code(s): J18.9 - Pneumonia, unspecified organism Code(s): J18.9 - Pneumonia, unspecified organism Status: Chronic Assessment and Plan: * as suggested by admission imaging * given recent/recurrent hospitalizations, being treated as nosocomial * follow culture data * on antibiotics (4) Anemia: Code(s): D64.9 - Anemia, unspecified Status: Chronic Assessment and Plan: * as noted on admission * acute on chronic * suspect partly related to underlying CKD * PRBC transfusion per protocol * on SALLY while hospitalized * follow trend of H/H (5) Hypertension: Qualifiers: Hypertension type: primary hypertension Qualified Code(s): I10 - Essential (primary) hypertension Code(s): I10 - Essential (primary) hypertension Status: Chronic Assessment and Plan: * reasonable control at this time * possible :overcontrol since recent issues with HTN urgency (?) * off hydralazine * consider backing off on amlodipine as well * follow trend of hemodynamics (6) Diabetes mellitus with chronic kidney disease: Code(s): E11.22 - Type 2 diabetes mellitus with diabetic chronic kidney disease Status: Chronic Assessment and Plan: * follow accu-cheks * glycemic control per hospitalisits Will continue to follow. Subjective Date/time seen: 03/11/23 11:44 Interval history: Follow-up for acute kidney injury/acute renal failure on chronic kidney disease. Renal function remains unchanged however CXR this AM notable for congestion/pul monary edema although patient does not report any worsening shortness of breath; no new issues/events overnight or earlier this morning; no apparent distress noted. Exam Narrative: General: elderly but WD/WN male in NAD Heart: normal S1 and S2; no rub Lungs: clear anteriorly but decreased at bases Abdomen: soft, nontender, nondistended, positive bowel sounds Extremities: no cyanosis or clubbing; 1 - 2+ edema Skin: no rash Objective Data Vital Signs Vital Signs: Vital Sign
[2023-03-11 11:59] LABS: Glucose Point of Care 138 mg/dl (65-105)
[2023-03-11 16:35] LABS: Glucose Point of Care 95 mg/dl (65-105)
[2023-03-11] MEDS: MELATONIN 5 MG TABLET PO (20:05)
[2023-03-11] MEDS: rOPINIRole HCL 0.5 MG TABLET PO (20:06)
[2023-03-11 22:06] LABS: Glucose Point of Care 96 mg/dl (65-105)
[2023-03-12] VITALS (12 sets, daily range): BP systolic 117–141; BP diastolic 55–69; PULSE 48–68; RESP 18; TEMP 35.8–36.8; O2SAT 94–98
[2023-03-12 06:01] LABS: Basophils Absolute Auto 0.1 K/mm3 (0.0-0.1); Basophils Percent Auto 1.5 % (0.2-1.2); Eosinophils Absolute Auto 0.6 K/mm3 (0-0.3); Eosinophils Percent Auto 9.3 % (0-4.4); Hematocrit 28.9 % (42.0-52.0); Immature Granulocyte Absolute 0.12 K/mm3 (0.00-0.031); Immature Granulocyte Percent A 1.8 % (0-0.5); Lymphocytes Absolute Auto 0.77 K/mm3 (0.9-3.2); Lymphocytes Percent Auto 11.7 % (18.3-44.2); Mean Corpuscular HGB Conc 31.1 g/dl (32-36); Mean Corpuscular Hemoglobin 32.7 pg (26-34); Mean Corpuscular Volume 105.1 fl (80-100); Mean Platelet Volume 10.7 fl (7.4-10.4); Monocytes Absolute Auto 0.6 K/mm3 (0.1-0.6); Monocytes Percent Auto 9.1 % (2.6-8.5); Neutrophils Absolute Auto 4.4 K/mm3 (1.3-6.7); Neutrophils Percent Auto 66.6 % (45.5-73.1); Nucleated Red Blood Cells Perc 0.3 % (0.0-0.2); Platelet Count Result 303 k/mm3 (150-375); Red Blood Count 2.75 M/mm3 (4.6-6.20); Red Cell Distribution Width 19.5 % (11.5-14.5); White Blood Count 6.6 K/mm3 (4.5-10.0)
[2023-03-12 06:11] LABS: Alanine Aminotransferase 28 U/L (6-50); Albumin Level 2.8 g/dL (3.5-5.1); Alkaline Phosphatase 123 U/L (38-126); Anion Gap 6 mmol/L (8-16); Aspartate Amino Transferase 33 U/L (17-59); Bilirubin,Total 0.3 mg/dL (0.2-1.3); Blood Urea Nitrogen 89 mg/dL (9-20); Calcium 7.7 mg/dL (8.4-10.2); Carbon Dioxide 21 mmol/L (22-30); Chloride 107 mmol/L (98-107); Estimated CRCL calculation 15 ml/min; Estimated Glomerular Filt Rate 13; Glucose 63 mg/dL (65-110); Potassium 5.1 mmol/L (3.4-5.0); Sodium 134 mmol/L (137-145)
[2023-03-12 07:23] LABS: Platelet Estimate Adequate (Adequate)
[2023-03-12 07:24] LABS: Anisocytosis 1+ (NORMAL); Burr Cells 1+ (NORMAL); Schistocytes 1+ (NORMAL)
[2023-03-12] MEDS: GLUCOSE ORAL GEL 15 GM OF GLUCSE IN 37.5 GM TUBE PO (08:28)
[2023-03-12] MEDS: amLODIPine BESYLATE 5 MG TABLET 10 MG PO (08:33)
[2023-03-12] MEDS: DOXYCYCLINE HYCLATE 100 MG TABLET PO ×2 (08:33→20:27)
[2023-03-12] MEDS: ASPIRIN 81 MG CHEWABLE TABLET PO (08:33)
[2023-03-12] MEDS: carvediloL 12.5 MG TABLET PO ×2 (08:33→20:27)
[2023-03-12] MEDS: buPROPion HCL 75 MG TABLET PO ×2 (08:33→20:27)
[2023-03-12] MEDS: GABAPENTIN 100 MG CAPSULE PO ×2 (08:33→17:15)
[2023-03-12] MEDS: SERTRALINE HCL 25 MG TABLET PO (08:33)
[2023-03-12] MEDS: EPOETIN ALFA 10,000 UNITS/ML VIAL 10000 UNITS SUB-Q (08:38)
[2023-03-12] MEDS: PANTOPRAZOLE 40 MG TABLET PO (08:38)
[2023-03-12 08:49] LABS: Glucose Point of Care 87 mg/dl (65-105)
[2023-03-12 08:49] LABS: Glucose Point of Care 60 mg/dl (65-105)
[2023-03-12 08:49] LABS: Glucose Point of Care 60 mg/dl (65-105)
--- NOTE | 2023-03-12 08:49 | PM.IMPN ---
Progress Note: A&P Assessment and Plan (1) Chronic kidney disease, stage IV (severe): Code(s): N18.4 - Chronic kidney disease, stage 4 (severe) Status: Acute Assessment and Plan: Creatinine appears to be around 3.5-3.9, currently 4, monitor nephrology consult pending 03/10: vanc, lasix and HCTZ d/c today, assess response tomorrow 03/11: unchanged, appreciate nephrology 03/12: worsened, 4.5 today (2) Nosocomial pneumonia: Code(s): J18.9 - Pneumonia, unspecified organism; Y95 - Nosocomial condition Status: Acute Assessment and Plan: Started on vancomycin, cefepime, azithromycin 03/06 Improving 03/10: MRSA swab came back positive, de-escalated to doxycycline to complete 10 day course of abx, end date Mar 15 (3) Acute anemia: Code(s): D64.9 - Anemia, unspecified Status: Acute Assessment and Plan: Check stool occult, iron studies not done prior to transfusion, monitor s/p 2 units pRBCs, likely acute worsening of anemia of chronic disease 2/2 CKD 03/09: resolved, cont to monitor (4) Weakness generalized: Code(s): R53.1 - Weakness Status: Acute Assessment and Plan: Multifactorial, complicated by acute illness, worsened by anemia PT/OT (5) Type 2 diabetes mellitus with hyperglycemia, with long-term current use of insulin: Code(s): E11.65 - Type 2 diabetes mellitus with hyperglycemia; Z79.4 - retirement (current) use of insulin Status: Acute Assessment and Plan: Continue home insulin, Accu-Cheks, sliding scale insulin A1c 7.9 Blood glucose reviewed 03/12, continues to need less insulin, d/c mealtime coverage and decrease lantus to 10 units (6) Diastolic congestive heart failure: Qualifiers: Heart failure chronicity: chronic Qualified Code(s): I50.32 - Chronic diastolic (congestive) heart failure Code(s): I50.30 - Unspecified diastolic (congestive) heart failure Status: Chronic Assessment and Plan: Slightly hypervolemic, monitor Lasix IV given 03/09 03/10: d/c lasix and HCTZ, assess edema tomorrow 03/11: worsened swelling today, bumex given x 1 03/12: (7) Obstructive sleep apnea: Code(s): G47.33 - Obstructive sleep apnea (adult) (pediatric) Status: Acute Assessment and Plan: CPAP at nighttime (8) Chronic anemia: Code(s): D64.9 - Anemia, unspecified Status: Acute Assessment and Plan: likely secondary to renal failure, monitor defer management to outpatient nephro and hematology, likely need epogen regularly (9) Neurogenic bladder: Code(s): N31.9 - Neuromuscular dysfunction of bladder, unspecified Status: Acute (10) Chronic obstructive pulmonary disease: Code(s): J44.9 - Chronic obstructive pulmonary disease, unspecified Status: Acute Assessment and Plan: Nebulizers as needed, does not appear in exacerbation Plan Left knee tenderness: check LE dopplers, r/o DVT--dopplers negative DVT prophylaxis with SCDs GI prophylaxis not indicated Code status full code Subjective Date/time seen: 03/12/23 08:49 Interval history: 77-year-old male with history of diabetes, COPD, sleep apnea is presenting with generalized weakness and currently being treated for possible pneumonia. No overnight events noted. No chest pain or shortness of breath. No nausea, vomiting or diarrhea. No fevers or chills. Much less edema. Review of Systems Review of Systems: 12 point review of systems was assessed and was negative except as noted in the HPI Exam Narrative: General: No acute distress, alert and oriented per baseline HEENT: Atraumatic, normocephalic, mucous membranes moist CV: Regular rate and rhythm, S1, S2 Lungs: Clear to auscultation bilaterally, no rales or crackles noted, no wheezes Abdomen: Soft, nontender, nondistended Extremities: Normal to inspection, trace pitting edema noted Skin:
--- NOTE | 2023-03-12 10:00 | P.PNNP_ITS ---
Progress Note: A&P Assessment and Plan (1) VISHNU (acute kidney injury): Code(s): N17.9 - Acute kidney failure, unspecified Status: Acute Assessment and Plan: * as noted by trend of labs since admission (and previous admissions/hospitalizations in the last couple of months) * likely related to several issues: * significant anemia * infection (possible pneumonia) * prerenal factors * CKD progression (?) * evaluation to date: * urine eosinophils negative * some suggestion of prerenal azotemia by urine electrolytes * proteinuria noted * renal ultrasound (done in rehab) unremarkable * PRN diuretics to maintain volume status * follow trend of repeat labs and UOP (2) Chronic kidney disease, stage IV (severe): Code(s): N18.4 - Chronic kidney disease, stage 4 (severe) Status: Acute Assessment and Plan: * creatinine ~ 1.8 - 2.7mg/dl by outpatient records * follows with Dr. Davis Ny for CKD managmenet * suspect due to HTN, DM, vascular disease, and age-related change * HOWEVER, since last hospitalization, creatinine running higher...closer to 3.3 - 3.6mg/dl (new baseline?) (3) Pneumonia: Qualifiers: Laterality: left Lung location: lower lobe of lung Pneumonia type: due to unspecified organism Qualified Code(s): J18.9 - Pneumonia, unspecified organism Code(s): J18.9 - Pneumonia, unspecified organism Status: Chronic Assessment and Plan: * as suggested by admission imaging * given recent/recurrent hospitalizations, being treated as nosocomial * follow culture data * on antibiotics (4) Anemia: Code(s): D64.9 - Anemia, unspecified Status: Chronic Assessment and Plan: * as noted on admission * acute on chronic * suspect partly related to underlying CKD * PRBC transfusion per protocol * on [facility] while hospitalized * follow trend of H/H (5) Hypertension: Qualifiers: Hypertension type: primary hypertension Qualified Code(s): I10 - Essential (primary) hypertension Code(s): I10 - Essential (primary) hypertension Status: Chronic Assessment and Plan: * reasonable control at this time * possible :overcontrol since recent issues with HTN urgency (?) * off hydralazine * follow trend of hemodynamics (6) Diabetes mellitus with chronic kidney disease: Code(s): E11.22 - Type 2 diabetes mellitus with diabetic chronic kidney disease Status: Chronic Assessment and Plan: * follow accu-cheks * glycemic control per hospitalisits Will continue to follow. Subjective Date/time seen: 03/12/23 10:00 Interval history: Follow-up for acute kidney injury/acute renal failure on chronic kidney disease. Renal function a little worse by AM labs but he did receive IV diuretics yesterday due to concerns of volume overload; sitting up in chair at the time of my visit; denies any acute complaints at this time; no other issues/events overnight or earlier this morning. Exam Narrative: General: elderly but WD/WN male in NAD Heart: normal S1 and S2; no rub Lungs: clear anteriorly but decreased at bases Abdomen: soft, nontender, nondistended, positive bowel sounds Extremities: no cyanosis or clubbing; 1 - 2+ edema Skin: no nodules Objective Data Vital Signs Vital Signs: Vital Signs Temp Pulse Resp BP Pulse Ox O2 Del Me
--- NOTE | 2023-03-12 10:00 | PM.PNNEP ---
Progress Note: A&P Assessment and Plan (1) VISHNU (acute kidney injury): Code(s): N17.9 - Acute kidney failure, unspecified Status: Acute Assessment and Plan: as noted by trend of labs since admission (and previous admissions/hospitalizations in the last couple of months) likely related to several issues: significant anemia infection (possible pneumonia) prerenal factors CKD progression (?) evaluation to date: urine eosinophils negative some suggestion of prerenal azotemia by urine electrolytes proteinuria noted renal ultrasound (done in rehab) unremarkable PRN diuretics to maintain volume status follow trend of repeat labs and UOP (2) Chronic kidney disease, stage IV (severe): Code(s): N18.4 - Chronic kidney disease, stage 4 (severe) Status: Acute Assessment and Plan: creatinine ~ 1.8 - 2.7mg/dl by outpatient records follows with Dr. Davis Ny for CKD managmenet suspect due to HTN, DM, vascular disease, and age-related change HOWEVER, since last hospitalization, creatinine running higher...closer to 3.3 - 3.6mg/dl (new baseline?) (3) Pneumonia: Qualifiers: Laterality: left Lung location: lower lobe of lung Pneumonia type: due to unspecified organism Qualified Code(s): J18.9 - Pneumonia, unspecified organism Code(s): J18.9 - Pneumonia, unspecified organism Status: Chronic Assessment and Plan: as suggested by admission imaging given recent/recurrent hospitalizations, being treated as nosocomial follow culture data on antibiotics (4) Anemia: Code(s): D64.9 - Anemia, unspecified Status: Chronic Assessment and Plan: as noted on admission acute on chronic suspect partly related to underlying CKD PRBC transfusion per protocol on [facility] while hospitalized follow trend of H/H (5) Hypertension: Qualifiers: Hypertension type: primary hypertension Qualified Code(s): I10 - Essential (primary) hypertension Code(s): I10 - Essential (primary) hypertension Status: Chronic Assessment and Plan: reasonable control at this time possible :overcontrol since recent issues with HTN urgency (?) off hydralazine follow trend of hemodynamics (6) Diabetes mellitus with chronic kidney disease: Code(s): E11.22 - Type 2 diabetes mellitus with diabetic chronic kidney disease Status: Chronic Assessment and Plan: follow accu-cheks glycemic control per hospitalisits Will continue to follow. Subjective Date/time seen: 03/12/23 10:00 Interval history: Follow-up for acute kidney injury/acute renal failure on chronic kidney disease. Renal function a little worse by AM labs but he did receive IV diuretics yesterday due to concerns of volume overload; sitting up in chair at the time of my visit; denies any acute complaints at this time; no other issues/events overnight or earlier this morning. Exam Narrative: General: elderly but WD/WN male in NAD Heart: normal S1 and S2; no rub Lungs: clear anteriorly but decreased at bases Abdomen: soft, nontender, nondistended, positive bowel sounds Extremities: no cyanosis or clubbing; 1 - 2+ edema Skin: no nodules Objective Data Vital Signs Vital Signs: Vital Signs Temp Pulse Resp BP Pulse Ox O2 Del Method O2 Flow Rate 03/12/23 08:46 94 Nasal Cannula 3 03/12/23 06:00 97.5 F L 63 18 141/55 H 94 03/12/23 04:00 66 03/12/23 00:00 58 L 03/11/23 20:00 52 L 03/11/23 23:07 20 97 Nasal Cannula 3 03/11/23 21:00 68 16 95 Autopap 03/11/23 20:00 97 Nasal Cannula 3 03/11/23 20:05 53 L 03/11/23 19:48 53 L 18 144/53 H 97 03/11/23 13:39 95 Nasal Cannula 3 03/11/23 16:00 85 03/11/23 14:00 96.5 F L 85 18 118/64 97 Intake/Output Intake/Output: Intake & Output 03/09/23 03/10/23 03/11/23
[2023-03-12] MEDS: INSULIN GLARGINE (*BKC) 100 UNITS/ML 10 UNITS SUB-Q (10:12)
[2023-03-12] MEDS: polyethylene glycoL 3350 17 GM POWD.PACK PO (11:39)
[2023-03-12 12:23] LABS: Glucose Point of Care 176 mg/dl (65-105)
--- NOTE | 2023-03-12 15:26 | PCCCNOTE ---
On 03/12/23, the student, Sangita Elliott, provided care and completed [facility] documentation on this patient. I have reviewed the student's documentation and agree with the findings.
[2023-03-12 17:39] LABS: Glucose Point of Care 178 mg/dl (65-105)
[2023-03-12 20:21] LABS: Glucose Point of Care 179 mg/dl (65-105)
[2023-03-12] MEDS: rOPINIRole HCL 0.5 MG TABLET PO (20:27)
[2023-03-12] MEDS: MELATONIN 5 MG TABLET PO (20:27)
[2023-03-13] VITALS (15 sets, daily range): BP systolic 124–149; BP diastolic 57–69; PULSE 51–62; RESP 18; TEMP 36.4–36.8; O2SAT 94–96
[2023-03-13 05:34] LABS: Basophils Absolute Auto 0.1 K/mm3 (0.0-0.1); Basophils Percent Auto 1.5 % (0.2-1.2); Eosinophils Absolute Auto 0.5 K/mm3 (0-0.3); Hematocrit 28.7 % (42.0-52.0); Hemoglobin 8.9 g/dL (14.0-18.0); Immature Granulocyte Absolute 0.12 K/mm3 (0.00-0.031); Lymphocytes Absolute Auto 0.73 K/mm3 (0.9-3.2); Lymphocytes Percent Auto 12.4 % (18.3-44.2); Mean Corpuscular Hemoglobin 32.6 pg (26-34); Mean Corpuscular Volume 105.1 fl (80-100); Mean Platelet Volume 10.9 fl (7.4-10.4); Monocytes Absolute Auto 0.7 K/mm3 (0.1-0.6); Monocytes Percent Auto 11.5 % (2.6-8.5); Neutrophils Absolute Auto 3.8 K/mm3 (1.3-6.7); Neutrophils Percent Auto 63.6 % (45.5-73.1); Platelet Count Result 314 k/mm3 (150-375); Red Blood Count 2.73 M/mm3 (4.6-6.20); White Blood Count 5.9 K/mm3 (4.5-10.0)
[2023-03-13 05:49] LABS: Alanine Aminotransferase 29 U/L (6-50); Albumin Level 3.1 g/dL (3.5-5.1); Alkaline Phosphatase 134 U/L (38-126); Anion Gap 7 mmol/L (8-16); Aspartate Amino Transferase 26 U/L (17-59); Bilirubin,Total 0.3 mg/dL (0.2-1.3); Blood Urea Nitrogen 92 mg/dL (9-20); Calcium 7.7 mg/dL (8.4-10.2); Carbon Dioxide 22 mmol/L (22-30); Chloride 106 mmol/L (98-107); Estimated CRCL calculation 15 ml/min; Estimated Glomerular Filt Rate 12; Glucose 131 mg/dL (65-110); Potassium 6.1 mmol/L (3.4-5.0); Sodium 135 mmol/L (137-145)
[2023-03-13 06:25] LABS: Crenated RBC 1+ (NORMAL); Platelet Estimate Adequate (Adequate)
[2023-03-13 06:26] LABS: Anisocytosis 1+ (NORMAL); Schistocytes Rare (NORMAL)
[2023-03-13] MEDS: SODIUM ZIRCONIUM CYCLOSILICATE 10 GM POWD.PACK PO (06:30)
[2023-03-13] MEDS: amLODIPine BESYLATE 5 MG TABLET 10 MG PO (08:12)
[2023-03-13] MEDS: buPROPion HCL 75 MG TABLET PO ×2 (08:12→20:45)
[2023-03-13] MEDS: carvediloL 12.5 MG TABLET PO ×2 (08:12→20:45)
[2023-03-13] MEDS: ASPIRIN 81 MG CHEWABLE TABLET PO (08:12)
[2023-03-13] MEDS: GABAPENTIN 100 MG CAPSULE PO ×2 (08:13→17:16)
[2023-03-13] MEDS: SERTRALINE HCL 25 MG TABLET PO (08:13)
[2023-03-13] MEDS: DOXYCYCLINE HYCLATE 100 MG TABLET PO ×2 (08:13→20:45)
[2023-03-13] MEDS: INSULIN GLARGINE (*BKC) 100 UNITS/ML 10 UNITS SUB-Q (08:18)
[2023-03-13 08:32] LABS: Glucose Point of Care 118 mg/dl (65-105)
--- NOTE | 2023-03-13 08:46 | PM.IMPN ---
Progress Note: A&P Assessment and Plan (1) Chronic kidney disease, stage IV (severe): Code(s): N18.4 - Chronic kidney disease, stage 4 (severe) Status: Acute Assessment and Plan: Creatinine appears to be around 3.5-3.9, currently 4, monitor nephrology consult appreciated, likely multifactorial etiology 03/10: vanc, lasix and HCTZ d/c today, assess response tomorrow 03/11: unchanged, appreciate nephrology 03/12: worsened, 4.5 today 03/13: continues to worsen with increasing potassium, defer management to nephrology (2) Nosocomial pneumonia: Code(s): J18.9 - Pneumonia, unspecified organism; Y95 - Nosocomial condition Status: Acute Assessment and Plan: Started on vancomycin, cefepime, azithromycin 03/06 Improving 03/10: MRSA swab came back positive, de-escalated to doxycycline to complete 10 day course of abx, end date Mar 15 (3) Acute anemia: Code(s): D64.9 - Anemia, unspecified Status: Acute Assessment and Plan: Check stool occult, iron studies not done prior to transfusion, monitor s/p 2 units pRBCs, likely acute worsening of anemia of chronic disease 2/2 CKD 03/09: resolved, cont to monitor (4) Weakness generalized: Code(s): R53.1 - Weakness Status: Acute Assessment and Plan: Multifactorial, complicated by acute illness, worsened by anemia PT/OT (5) Type 2 diabetes mellitus with hyperglycemia, with long-term current use of insulin: Code(s): E11.65 - Type 2 diabetes mellitus with hyperglycemia; Z79.4 - terminologist (current) use of insulin Status: Acute Assessment and Plan: Continue home insulin, Accu-Cheks, sliding scale insulin A1c 7.9 Blood glucose reviewed 03/13, continues to need less insulin, d/c mealtime coverage and decrease lantus to 10 units, stable (6) Diastolic congestive heart failure: Qualifiers: Heart failure chronicity: chronic Qualified Code(s): I50.32 - Chronic diastolic (congestive) heart failure Code(s): I50.30 - Unspecified diastolic (congestive) heart failure Status: Chronic Assessment and Plan: Diuretics given prn, slightly hypervolemic, monitor (7) Obstructive sleep apnea: Code(s): G47.33 - Obstructive sleep apnea (adult) (pediatric) Status: Acute Assessment and Plan: CPAP at nighttime (8) Chronic anemia: Code(s): D64.9 - Anemia, unspecified Status: Acute Assessment and Plan: likely secondary to renal failure, monitor defer management to outpatient nephro and hematology, likely need epogen regularly (9) Neurogenic bladder: Code(s): N31.9 - Neuromuscular dysfunction of bladder, unspecified Status: Acute (10) Chronic obstructive pulmonary disease: Code(s): J44.9 - Chronic obstructive pulmonary disease, unspecified Status: Acute Assessment and Plan: Nebulizers as needed, does not appear in exacerbation Plan Left knee tenderness: check LE dopplers, r/o DVT--dopplers negative DVT prophylaxis with SCDs GI prophylaxis not indicated Code status full code Subjective Date/time seen: 03/13/23 08:46 Interval history: 77-year-old male with history of diabetes, COPD, sleep apnea is presenting with generalized weakness and currently being treated for possible pneumonia. No overnight events noted. No chest pain or shortness of breath. No nausea, vomiting or diarrhea. No fevers or chills. No edema. Review of Systems Review of Systems: 12 point review of systems was assessed and was negative except as noted in the HPI Exam Narrative: General: No acute distress, alert and oriented per baseline HEENT: Atraumatic, normocephalic, mucous membranes moist CV: Regular rate and rhythm, S1, S2 Lungs: Clear to auscultation bilaterally, no rales or crackles noted, no wheezes Abdomen: Soft, nontender, nondistended Extremities: Normal to inspection, no edema, suman hose o
[2023-03-13 09:36] LABS: Anion Gap 6 mmol/L (8-16); Blood Urea Nitrogen 95 mg/dL (9-20); Calcium 7.9 mg/dL (8.4-10.2); Carbon Dioxide 21 mmol/L (22-30); Chloride 105 mmol/L (98-107); Estimated CRCL calculation 16 ml/min; Estimated Glomerular Filt Rate 14; Glucose 142 mg/dL (65-110); Potassium 5.6 mmol/L (3.4-5.0); Sodium 132 mmol/L (137-145)
--- NOTE | 2023-03-13 10:10 | P.PNNP_ITS ---
Progress Note: A&P Assessment and Plan (1) VISHNU (acute kidney injury): Code(s): N17.9 - Acute kidney failure, unspecified Status: Acute Assessment and Plan: * as noted by trend of labs since admission (and previous admissions/hospitalizations in the last couple of months) * likely related to several issues: * significant anemia * infection (pneumonia) -- progression to ATN?? * prerenal factors * CKD progression (?) * evaluation to date: * urine eosinophils negative * some suggestion of prerenal azotemia by urine electrolytes * proteinuria noted * renal ultrasound (done in rehab) unremarkable * PRN diuretics to maintain volume status * follow trend of repeat labs and UOP (2) Chronic kidney disease, stage IV (severe): Code(s): N18.4 - Chronic kidney disease, stage 4 (severe) Status: Acute Assessment and Plan: * creatinine ~ 1.8 - 2.7mg/dl by outpatient records * follows with Dr. Davis Ny for CKD managmenet * suspect due to HTN, DM, vascular disease, and age-related change * HOWEVER, since last hospitalization, creatinine running higher...closer to 3.3 - 3.6mg/dl (new baseline?) (3) Hyperkalemia: Code(s): E87.5 - Hyperkalemia Status: Acute Assessment and Plan: * as noted by recent labs * s/p medical management * start low K+ diet * presumably secondary to #1 * follow repeat K+ levels (4) Pneumonia: Qualifiers: Laterality: left Lung location: lower lobe of lung Pneumonia type: due to unspecified organism Qualified Code(s): J18.9 - Pneumonia, unspecified organism Code(s): J18.9 - Pneumonia, unspecified organism Status: Chronic Assessment and Plan: * as suggested by admission imaging * given recent/recurrent hospitalizations, being treated as nosocomial * follow culture data * on antibiotics (5) Anemia: Code(s): D64.9 - Anemia, unspecified Status: Chronic Assessment and Plan: * as noted on admission * acute on chronic * suspect partly related to underlying CKD * PRBC transfusion per protocol * on SALLY while hospitalized * follow trend of H/H (6) Hypertension: Qualifiers: Hypertension type: primary hypertension Qualified Code(s): I10 - Essential (primary) hypertension Code(s): I10 - Essential (primary) hypertension Status: Chronic Assessment and Plan: * reasonable control at this time * possible overcontrol since recent issues with HTN urgency (?) * off hydralazine * follow trend of hemodynamics (7) Diabetes mellitus with chronic kidney disease: Code(s): E11.22 - Type 2 diabetes mellitus with diabetic chronic kidney disease Status: Chronic Assessment and Plan: * follow accu-cheks * glycemic control per hospitalisits Will continue to follow. Subjective Date/time seen: 03/13/23 10:10 Interval history: Follow-up for acute kidney injury/acute renal failure on chronic kidney disease. Worsening creatinine in association with hyperkalemia this morning requiring medical management (insulin, D50, lokelma...etc) with improvement in potassium level; no other acute issues/events overnight or earlier this AM. Exam Narrative: General: elderly but WD/WN male in NAD Heart: normal S1 and S2; no rub Lungs: clear anteriorly but decreased at bases Abdomen: soft, nontender, nondistended, positive bowel sounds Extremities: no cyanosis or clubbing; 1 - 2+ edema Skin:
--- NOTE | 2023-03-13 10:10 | PM.PNNEP ---
Progress Note: A&P Assessment and Plan (1) VISHNU (acute kidney injury): Code(s): N17.9 - Acute kidney failure, unspecified Status: Acute Assessment and Plan: as noted by trend of labs since admission (and previous admissions/hospitalizations in the last couple of months) likely related to several issues: significant anemia infection (pneumonia) -- progression to ATN?? prerenal factors CKD progression (?) evaluation to date: urine eosinophils negative some suggestion of prerenal azotemia by urine electrolytes proteinuria noted renal ultrasound (done in rehab) unremarkable PRN diuretics to maintain volume status follow trend of repeat labs and UOP (2) Chronic kidney disease, stage IV (severe): Code(s): N18.4 - Chronic kidney disease, stage 4 (severe) Status: Acute Assessment and Plan: creatinine ~ 1.8 - 2.7mg/dl by outpatient records follows with Dr. Davis Ny for CKD managmenet suspect due to HTN, DM, vascular disease, and age-related change HOWEVER, since last hospitalization, creatinine running higher...closer to 3.3 - 3.6mg/dl (new baseline?) (3) Hyperkalemia: Code(s): E87.5 - Hyperkalemia Status: Acute Assessment and Plan: as noted by recent labs s/p medical management start low K+ diet presumably secondary to #1 follow repeat K+ levels (4) Pneumonia: Qualifiers: Laterality: left Lung location: lower lobe of lung Pneumonia type: due to unspecified organism Qualified Code(s): J18.9 - Pneumonia, unspecified organism Code(s): J18.9 - Pneumonia, unspecified organism Status: Chronic Assessment and Plan: as suggested by admission imaging given recent/recurrent hospitalizations, being treated as nosocomial follow culture data on antibiotics (5) Anemia: Code(s): D64.9 - Anemia, unspecified Status: Chronic Assessment and Plan: as noted on admission acute on chronic suspect partly related to underlying CKD PRBC transfusion per protocol on SALLY while hospitalized follow trend of H/H (6) Hypertension: Qualifiers: Hypertension type: primary hypertension Qualified Code(s): I10 - Essential (primary) hypertension Code(s): I10 - Essential (primary) hypertension Status: Chronic Assessment and Plan: reasonable control at this time possible overcontrol since recent issues with HTN urgency (?) off hydralazine follow trend of hemodynamics (7) Diabetes mellitus with chronic kidney disease: Code(s): E11.22 - Type 2 diabetes mellitus with diabetic chronic kidney disease Status: Chronic Assessment and Plan: follow accu-cheks glycemic control per hospitalisits Will continue to follow. Subjective Date/time seen: 03/13/23 10:10 Interval history: Follow-up for acute kidney injury/acute renal failure on chronic kidney disease. Worsening creatinine in association with hyperkalemia this morning requiring medical management (insulin, D50, lokelma...etc) with improvement in potassium level; no other acute issues/events overnight or earlier this AM. Exam Narrative: General: elderly but WD/WN male in NAD Heart: normal S1 and S2; no rub Lungs: clear anteriorly but decreased at bases Abdomen: soft, nontender, nondistended, positive bowel sounds Extremities: no cyanosis or clubbing; 1 - 2+ edema Skin: warm and dry Objective Data Vital Signs Vital Signs: Vital Signs Temp Pulse Resp BP Pulse Ox O2 Del Method O2 Flow Rate 03/13/23 10:08 55 L 03/13/23 08:00 57 L 03/13/23 08:00 94 Nasal Cannula 3 03/13/23 08:43 94 Nasal Cannula 3 03/13/23 08:12 58 L 03/13/23 05:35 98.0 F 58 L 18 124/59 L 95 03/13/23 04:00 57 L 03/12/23 23:00 95 Nasal Cannula 3 03/13/23 00:00 56 L 03/12/23 20:00 96 Nasal Cannula 3 03/12/23 20:
--- NOTE | 2023-03-13 10:21 | PC.NURSE ---
Dr Zhu notified of repeat potassium 5.6.
[2023-03-13] MEDS: SODIUM BICARBONATE 8.4% 50 MEQ/50 ML SYRINGE IV PUSH (10:37)
[2023-03-13] MEDS: CALCIUM GLUC 1,000 MG/NS 100ML 1,000 MG/100 ML BAG 200 MG IVPB (10:41)
[2023-03-13 12:20] LABS: Glucose Point of Care 168 mg/dl (65-105)
[2023-03-13 17:25] LABS: Glucose Point of Care 168 mg/dl (65-105)
[2023-03-13 20:11] LABS: Glucose Point of Care 209 mg/dl (65-105)
[2023-03-13] MEDS: rOPINIRole HCL 0.5 MG TABLET PO (20:45)
[2023-03-13] MEDS: MELATONIN 5 MG TABLET PO (20:48)
[2023-03-14] VITALS (15 sets, daily range): BP systolic 131–143; BP diastolic 50–71; PULSE 52–106; RESP 17–18; TEMP 36.3–36.7; O2SAT 88–97
[2023-03-14 05:38] LABS: Basophils Absolute Auto 0.1 K/mm3 (0.0-0.1); Basophils Percent Auto 1.9 % (0.2-1.2); Eosinophils Absolute Auto 0.4 K/mm3 (0-0.3); Eosinophils Percent Auto 6.3 % (0-4.4); Hematocrit 28.6 % (42.0-52.0); Hemoglobin 8.8 g/dL (14.0-18.0); Immature Granulocyte Absolute 0.13 K/mm3 (0.00-0.031); Immature Granulocyte Percent A 1.9 % (0-0.5); Lymphocytes Absolute Auto 0.62 K/mm3 (0.9-3.2); Lymphocytes Percent Auto 9.3 % (18.3-44.2); Mean Corpuscular HGB Conc 30.8 g/dl (32-36); Mean Corpuscular Hemoglobin 32.7 pg (26-34); Mean Corpuscular Volume 106.3 fl (80-100); Mean Platelet Volume 11.1 fl (7.4-10.4); Monocytes Absolute Auto 0.8 K/mm3 (0.1-0.6); Monocytes Percent Auto 11.2 % (2.6-8.5); Neutrophils Absolute Auto 4.7 K/mm3 (1.3-6.7); Neutrophils Percent Auto 69.4 % (45.5-73.1); Nucleated Red Blood Cells Perc 0.4 % (0.0-0.2); Platelet Count Result 309 k/mm3 (150-375); Red Blood Count 2.69 M/mm3 (4.6-6.20); Red Cell Distribution Width 19.2 % (11.5-14.5); White Blood Count 6.7 K/mm3 (4.5-10.0)
[2023-03-14 05:48] LABS: Alanine Aminotransferase 28 U/L (6-50); Alkaline Phosphatase 118 U/L (38-126); Anion Gap 5 mmol/L (8-16); Aspartate Amino Transferase 29 U/L (17-59); Bilirubin,Total 0.3 mg/dL (0.2-1.3); Blood Urea Nitrogen 94 mg/dL (9-20); Calcium 7.8 mg/dL (8.4-10.2); Carbon Dioxide 22 mmol/L (22-30); Chloride 105 mmol/L (98-107); Estimated CRCL calculation 16 ml/min; Estimated Glomerular Filt Rate 13; Glucose 134 mg/dL (65-110); Potassium 5.7 mmol/L (3.4-5.0); Sodium 132 mmol/L (137-145)
[2023-03-14 06:33] LABS: Anisocytosis 1+ (NORMAL); Crenated RBC 1+ (NORMAL); Platelet Estimate Adequate (Adequate); Schistocytes None Seen (NORMAL)
[2023-03-14] MEDS: SODIUM ZIRCONIUM CYCLOSILICATE 10 GM POWD.PACK PO (06:34)
[2023-03-14] MEDS: amLODIPine BESYLATE 5 MG TABLET 10 MG PO (07:33)
[2023-03-14] MEDS: buPROPion HCL 75 MG TABLET PO ×2 (07:33→20:20)
[2023-03-14] MEDS: ASPIRIN 81 MG CHEWABLE TABLET PO (07:33)
[2023-03-14] MEDS: carvediloL 12.5 MG TABLET PO (07:33)
[2023-03-14] MEDS: GABAPENTIN 100 MG CAPSULE PO ×2 (07:34→17:09)
[2023-03-14] MEDS: SERTRALINE HCL 25 MG TABLET PO (07:34)
[2023-03-14] MEDS: DOXYCYCLINE HYCLATE 100 MG TABLET PO ×2 (07:34→20:20)
[2023-03-14] MEDS: PANTOPRAZOLE 40 MG TABLET PO (07:34)
[2023-03-14] MEDS: INSULIN GLARGINE (*BKC) 100 UNITS/ML 10 UNITS SUB-Q (07:36)
[2023-03-14 08:26] LABS: Glucose Point of Care 101 mg/dl (65-105)
[2023-03-14] MEDS: EPOETIN ALFA 10,000 UNITS/ML VIAL 10000 UNITS SUB-Q (10:22)
--- NOTE | 2023-03-14 10:42 | PCNWS ---
Weekly nutritional screen. Patient is tolerating current diet with adequate intake. No weight loss reported. No nutritional needs at this time.
--- NOTE | 2023-03-14 11:19 | PM.IMPN ---
Progress Note: A&P Assessment and Plan (1) VISHNU (acute kidney injury): Code(s): N17.9 - Acute kidney failure, unspecified Status: Acute (2) Chronic kidney disease, stage IV (severe): Code(s): N18.4 - Chronic kidney disease, stage 4 (severe) Status: Acute (3) Pneumonia: Qualifiers: Laterality: left Lung location: lower lobe of lung Pneumonia type: due to unspecified organism Qualified Code(s): J18.9 - Pneumonia, unspecified organism Code(s): J18.9 - Pneumonia, unspecified organism Status: Chronic (4) Anemia: Code(s): D64.9 - Anemia, unspecified Status: Chronic (5) Hypertension: Qualifiers: Hypertension type: primary hypertension Qualified Code(s): I10 - Essential (primary) hypertension Code(s): I10 - Essential (primary) hypertension Status: Chronic (6) Diabetes mellitus with chronic kidney disease: Code(s): E11.22 - Type 2 diabetes mellitus with diabetic chronic kidney disease Status: Chronic Plan 77-year-old male with history of diabetes, COPD, sleep apnea is presenting with generalized weakness and currently being treated for possible pneumonia 1)Nosocomial Pna: c/w Doxycycline Last day Mar 15 2)Acute on Chronic Kidney Disease with hyperkalemia: Monitor kidney function Worsening Renal Following Avoid nephrotoxins Recheck BMP in AM Kayexalate and Calcium gluconate for hyperkalemia 3)Anemia: acute on Chronic 2/2 Anemia of Chronic disease Monitor H/H s/p 2 units of PRBC this admission 4)Mild Bradycardia: Decrease the dose corge 5)Diabetes mellitus: BG check TID AC and HS c/w lantus Adjust insulin as needed 6)DVT ppx:SCD, has anemia 7)Code:Full 8)Dispo:pending improvement Time Spent With Patient Time with patient: 25 - 35 minutes Subjective Date/time seen: 03/14/23 11:19 Interval history: worsening creatinine, hyperkalemia eager to go home Review of Systems Review of Systems: 12 point review of systems was assessed and was negative except as noted in the HPI Exam Narrative: General: No acute distress, alert and oriented per baseline HEENT: Atraumatic, normocephalic, mucous membranes moist CV: Regular rate and rhythm, S1, S2 Lungs: Clear to auscultation bilaterally, no rales or crackles noted, no wheezes Abdomen: Soft, nontender, nondistended Extremities: Normal to inspection, edema+, suman hose on Skin: No rashes noted, no lesions or wounds seen Psych: Euthymic, normal affect Objective Data Vital Signs Vital Signs: Vital Signs - 24 hr 03/13/23 12:00 03/13/23 16:00 03/13/23 14:00 Temperature 97.6 F Pulse Rate 56 L 51 L 61 Respiratory Rate 18 Blood Pressure 145/69 H Pulse Oximetry 96 Oxygen Delivery Oxygen Flow Rate 03/13/23 18:00 03/13/23 20:41 03/13/23 20:45 Temperature 98.3 F Pulse Rate 55 L 57 L 62 Respiratory Rate 18 Blood Pressure 149/57 H Pulse Oximetry 95 Oxygen Delivery Oxygen Flow Rate 03/13/23 20:00 03/13/23 20:00 03/14/23 00:00 Temperature Pulse Rate 60 61 Respiratory Rate Blood Pressure Pulse Oximetry 95 Oxygen Delivery Nasal Cannula Oxygen Flow Rate 3 03/14/23 02:00 03/13/23 21:18 03/14/23 04:07 Temperature Pulse Rate 61 Respiratory Rate Blood Pressure Pulse Oximetry 95 Oxygen Delivery Nasal Cannula Autopap Oxygen Flow Rate 3 03/14/23 04:00 03/14/23 05:37 03/14/23 06:00 Temperature 98.1 F Pulse Rate 58 L 59 L 62 Respiratory Rate 17 Blood Pressure 133/50 L Pulse Oximetry 95 Oxygen Delivery Oxygen Flow Rate 03/14/23 07:33 Temperature Pulse Rate 61 Respiratory Rate Blood Pressure Pulse Oximetry Oxygen Delivery Oxygen Flow Rate Intake/Output Intake/Output: Intake & Output 03/11/23 03/12/23 03/13/23 03/14/23 23:59 23:59 23:59 23:59 Intake Total 462 785 8265 390 Output Total 1444 650 900 600 Balance -484 210 140
[2023-03-14] MEDS: CALCIUM GLUC 1,000 MG/NS 50 ML 1,000 MG/50 ML BAG 100 MG IVPB (11:47)
[2023-03-14 12:12] LABS: Glucose Point of Care 127 mg/dl (65-105)
--- NOTE | 2023-03-14 14:09 | P.PNNP_ITS ---
Progress Note: A&P Assessment and Plan (1) VISHNU (acute kidney injury): Code(s): N17.9 - Acute kidney failure, unspecified Status: Acute Assessment and Plan: * as noted by trend of labs since admission (and previous admissions/hospitalizations in the last couple of months) * likely related to several issues: * significant anemia * infection (pneumonia) -- progression to ATN?? * prerenal factors * CKD progression (?) * evaluation to date: * urine eosinophils negative * some suggestion of prerenal azotemia by urine electrolytes * proteinuria noted * renal ultrasound (done in rehab) unremarkable * PRN diuretics to maintain volume status * follow trend of repeat labs and UOP (2) Chronic kidney disease, stage IV (severe): Code(s): N18.4 - Chronic kidney disease, stage 4 (severe) Status: Acute Assessment and Plan: * creatinine ~ 1.8 - 2.7mg/dl by outpatient records * follows with Dr. Davis Ny for CKD managmenet * suspect due to HTN, DM, vascular disease, and age-related change * HOWEVER, since last hospitalization, creatinine running higher...closer to 3.3 - 3.6mg/dl (new baseline?) (3) Hyperkalemia: Code(s): E87.5 - Hyperkalemia Status: Acute Assessment and Plan: * as noted by recent labs * s/p medical management * started on low K+ diet * presumably secondary to #1 * follow repeat K+ levels (4) Pneumonia: Qualifiers: Laterality: left Lung location: lower lobe of lung Pneumonia type: due to unspecified organism Qualified Code(s): J18.9 - Pneumonia, unspecified organism Code(s): J18.9 - Pneumonia, unspecified organism Status: Chronic Assessment and Plan: * as suggested by admission imaging * given recent/recurrent hospitalizations, being treated as nosocomial * follow culture data * on antibiotics (5) Anemia: Code(s): D64.9 - Anemia, unspecified Status: Chronic Assessment and Plan: * as noted on admission * acute on chronic * suspect partly related to underlying CKD * PRBC transfusion per protocol * on SALLY while hospitalized * follow trend of H/H (6) Hypertension: Qualifiers: Hypertension type: primary hypertension Qualified Code(s): I10 - Essential (primary) hypertension Code(s): I10 - Essential (primary) hypertension Status: Chronic Assessment and Plan: * reasonable control at this time * possible overcontrol since recent issues with HTN urgency (?) * off hydralazine * follow trend of hemodynamics (7) Diabetes mellitus with chronic kidney disease: Code(s): E11.22 - Type 2 diabetes mellitus with diabetic chronic kidney disease Status: Chronic Assessment and Plan: * follow accu-cheks * glycemic control per hospitalisits Despite all conservative therapy, he continues to have an elevated BUN and c reatinine; more concerning is that his potassium level continues to run high as well in spite of medical therapy; however, he appears to be making reasonable urine output. 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 Will continue to follow. Subjective Date/time seen: 03/14/23 14:09 Interval history: Follow-up for acute kidney injury/acute renal failure on chronic kidney disease. Creatinine about the same and potassium continues to remain on the higher side as well;
--- NOTE | 2023-03-14 14:09 | PM.PNNEP ---
Progress Note: A&P Assessment and Plan (1) VISHNU (acute kidney injury): Code(s): N17.9 - Acute kidney failure, unspecified Status: Acute Assessment and Plan: as noted by trend of labs since admission (and previous admissions/hospitalizations in the last couple of months) likely related to several issues: significant anemia infection (pneumonia) -- progression to ATN?? prerenal factors CKD progression (?) evaluation to date: urine eosinophils negative some suggestion of prerenal azotemia by urine electrolytes proteinuria noted renal ultrasound (done in rehab) unremarkable PRN diuretics to maintain volume status follow trend of repeat labs and UOP (2) Chronic kidney disease, stage IV (severe): Code(s): N18.4 - Chronic kidney disease, stage 4 (severe) Status: Acute Assessment and Plan: creatinine ~ 1.8 - 2.7mg/dl by outpatient records follows with Dr. Davis Ny for CKD managmenet suspect due to HTN, DM, vascular disease, and age-related change HOWEVER, since last hospitalization, creatinine running higher...closer to 3.3 - 3.6mg/dl (new baseline?) (3) Hyperkalemia: Code(s): E87.5 - Hyperkalemia Status: Acute Assessment and Plan: as noted by recent labs s/p medical management started on low K+ diet presumably secondary to #1 follow repeat K+ levels (4) Pneumonia: Qualifiers: Laterality: left Lung location: lower lobe of lung Pneumonia type: due to unspecified organism Qualified Code(s): J18.9 - Pneumonia, unspecified organism Code(s): J18.9 - Pneumonia, unspecified organism Status: Chronic Assessment and Plan: as suggested by admission imaging given recent/recurrent hospitalizations, being treated as nosocomial follow culture data on antibiotics (5) Anemia: Code(s): D64.9 - Anemia, unspecified Status: Chronic Assessment and Plan: as noted on admission acute on chronic suspect partly related to underlying CKD PRBC transfusion per protocol on SALLY while hospitalized follow trend of H/H (6) Hypertension: Qualifiers: Hypertension type: primary hypertension Qualified Code(s): I10 - Essential (primary) hypertension Code(s): I10 - Essential (primary) hypertension Status: Chronic Assessment and Plan: reasonable control at this time possible overcontrol since recent issues with HTN urgency (?) off hydralazine follow trend of hemodynamics (7) Diabetes mellitus with chronic kidney disease: Code(s): E11.22 - Type 2 diabetes mellitus with diabetic chronic kidney disease Status: Chronic Assessment and Plan: follow accu-cheks glycemic control per hospitalisits Despite all conservative therapy, he continues to have an elevated BUN and creatinine; more concerning is that his potassium level continues to run high as well in spite of medical therapy; however, he appears to be making reasonable urine output. 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 Will continue to follow. Subjective Date/time seen: 03/14/23 14:09 Interval history: Follow-up for acute kidney injury/acute renal failure on chronic kidney disease. Creatinine about the same and potassium continues to remain on the higher side as well; no other acute complaints voiced at the time of my visit; no apparent distress noted; no other isssues/events overnight or earlier this morning; asking me about discharge. Exam Narrative: General: elderly but WD/WN male in NAD Heart: normal S1 and S2; no rub Lungs: clear anteriorly but decreased at bases Abdomen: soft, nontender, nondistended, positive bowel sounds Extremities: no cyanosis or clubbing; 1 - 2+ edema Skin: warm and intact Objective Data
[2023-03-14 17:24] LABS: Glucose Point of Care 134 mg/dl (65-105)
[2023-03-14 17:34] LABS: Chloride Rand Ur 36 mmol/L (32-290); Chloride/Creatinine Rand Ur 46 (23-275); Creatinine Random Urine 79 mg/dL (20-320)
[2023-03-14] MEDS: carvediloL 6.25 MG TABLET PO (20:20)
[2023-03-14] MEDS: rOPINIRole HCL 0.5 MG TABLET PO (20:20)
[2023-03-14] MEDS: MELATONIN 5 MG TABLET PO (20:23)
[2023-03-14 22:04] LABS: Glucose Point of Care 148 mg/dl (65-105)
[2023-03-15] VITALS (13 sets, daily range): BP systolic 133–158; BP diastolic 50–61; PULSE 60–66; RESP 18; TEMP 36.1–36.4; O2SAT 90–93
[2023-03-15 05:51] LABS: Alanine Aminotransferase 30 U/L (6-50); Albumin Level 3.3 g/dL (3.5-5.1); Alkaline Phosphatase 120 U/L (38-126); Anion Gap 12 mmol/L (8-16); Aspartate Amino Transferase 35 U/L (17-59); Bilirubin,Total 0.6 mg/dL (0.2-1.3); Blood Urea Nitrogen 97 mg/dL (9-20); Carbon Dioxide 18 mmol/L (22-30); Chloride 105 mmol/L (98-107); Estimated CRCL calculation 16 ml/min; Estimated Glomerular Filt Rate 13; Glucose 107 mg/dL (65-110); Sodium 135 mmol/L (137-145)
[2023-03-15 05:52] LABS: Basophils Absolute Auto 0.1 K/mm3 (0.0-0.1); Basophils Percent Auto 1.7 % (0.2-1.2); Eosinophils Absolute Auto 0.3 K/mm3 (0-0.3); Eosinophils Percent Auto 4.8 % (0-4.4); Hematocrit 30.9 % (42.0-52.0); Hemoglobin 9.7 g/dL (14.0-18.0); Immature Granulocyte Absolute 0.18 K/mm3 (0.00-0.031); Immature Granulocyte Percent A 2.6 % (0-0.5); Lymphocytes Absolute Auto 0.49 K/mm3 (0.9-3.2); Lymphocytes Percent Auto 7.1 % (18.3-44.2); Mean Corpuscular HGB Conc 31.4 g/dl (32-36); Mean Corpuscular Hemoglobin 33.1 pg (26-34); Mean Corpuscular Volume 105.5 fl (80-100); Mean Platelet Volume 11.8 fl (7.4-10.4); Monocytes Absolute Auto 0.6 K/mm3 (0.1-0.6); Monocytes Percent Auto 8.4 % (2.6-8.5); Neutrophils Absolute Auto 5.2 K/mm3 (1.3-6.7); Neutrophils Percent Auto 75.4 % (45.5-73.1); Nucleated Red Blood Cells Absolute Auto 0.1 K/mm3 (0.0-0.012); Nucleated Red Blood Cells Perc 0.7 % (0.0-0.2); Platelet Count Result 290 k/mm3 (150-375); Red Blood Count 2.93 M/mm3 (4.6-6.20); Red Cell Distribution Width 19.1 % (11.5-14.5); White Blood Count 6.9 K/mm3 (4.5-10.0)
[2023-03-15 06:22] LABS: Crenated RBC 1+ (NORMAL); Macrocytosis 1+ (NORMAL); Platelet Estimate Adequate (Adequate); Schistocytes None Seen (NORMAL)
[2023-03-15] MEDS: SODIUM ZIRCONIUM CYCLOSILICATE 10 GM POWD.PACK PO ×2 (06:36→18:28)
[2023-03-15] MEDS: amLODIPine BESYLATE 5 MG TABLET 10 MG PO (08:16)
[2023-03-15] MEDS: SODIUM BICARBONATE TAB 650 MG TABLET PO ×2 (08:16→16:22)
[2023-03-15] MEDS: carvediloL 6.25 MG TABLET PO ×2 (08:16→20:44)
[2023-03-15] MEDS: DOXYCYCLINE HYCLATE 100 MG TABLET PO (08:17)
[2023-03-15] MEDS: GABAPENTIN 100 MG CAPSULE PO ×2 (08:17→16:22)
[2023-03-15] MEDS: buPROPion HCL 75 MG TABLET PO ×2 (08:17→20:44)
[2023-03-15] MEDS: SERTRALINE HCL 25 MG TABLET PO (08:17)
[2023-03-15] MEDS: ASPIRIN 81 MG CHEWABLE TABLET PO (08:17)
--- NOTE | 2023-03-15 08:41 | PM.IMPN ---
Progress Note: A&P Assessment and Plan (1) Chronic kidney disease, stage IV (severe): Code(s): N18.4 - Chronic kidney disease, stage 4 (severe) Status: Acute Assessment and Plan: Creatinine appears to be around 3.5-3.9, currently 4, monitor nephrology consult appreciated, likely multifactorial etiology 03/15: cr unchanged, suspect new baseline? (2) Nosocomial pneumonia: Code(s): J18.9 - Pneumonia, unspecified organism; Y95 - Nosocomial condition Status: Acute Assessment and Plan: Started on vancomycin, cefepime, azithromycin 03/06 Improving 03/10: MRSA swab came back positive, de-escalated to doxycycline to complete 10 day course of abx, end date Mar 15 (3) Acute anemia: Code(s): D64.9 - Anemia, unspecified Status: Acute Assessment and Plan: Check stool occult, iron studies not done prior to transfusion, monitor s/p 2 units pRBCs, likely acute worsening of anemia of chronic disease 2/2 CKD 03/09: resolved, cont to monitor (4) Weakness generalized: Code(s): R53.1 - Weakness Status: Acute Assessment and Plan: Multifactorial, complicated by acute illness, worsened by anemia PT/OT (5) Type 2 diabetes mellitus with hyperglycemia, with long-term current use of insulin: Code(s): E11.65 - Type 2 diabetes mellitus with hyperglycemia; 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 Status: Acute Assessment and Plan: Continue home insulin, Accu-Cheks, sliding scale insulin A1c 7.9 Blood glucose reviewed 03/15, controlled, monitor (6) Diastolic congestive heart failure: Qualifiers: Heart failure chronicity: chronic Qualified Code(s): I50.32 - Chronic diastolic (congestive) heart failure Code(s): I50.30 - Unspecified diastolic (congestive) heart failure Status: Chronic Assessment and Plan: Diuretics given prn, slightly hypervolemic, monitor (7) Obstructive sleep apnea: Code(s): G47.33 - Obstructive sleep apnea (adult) (pediatric) Status: Acute Assessment and Plan: CPAP at nighttime (8) Chronic anemia: Code(s): D64.9 - Anemia, unspecified Status: Acute Assessment and Plan: likely secondary to renal failure, monitor defer management to outpatient nephro and hematology, likely need epogen regularly (9) Neurogenic bladder: Code(s): N31.9 - Neuromuscular dysfunction of bladder, unspecified Status: Acute (10) Chronic obstructive pulmonary disease: Code(s): J44.9 - Chronic obstructive pulmonary disease, unspecified Status: Acute Assessment and Plan: Nebulizers as needed, does not appear in exacerbation Plan Left knee tenderness: check LE dopplers, r/o DVT--dopplers negative DVT prophylaxis with SCDs GI prophylaxis not indicated Code status full code Subjective Date/time seen: 03/15/23 08:41 Interval history: 77-year-old male with history of diabetes, COPD, sleep apnea is presenting with generalized weakness and currently being treated for possible pneumonia. No overnight events noted. No chest pain or shortness of breath. No nausea, vomiting or diarrhea. No fevers or chills. No edema. Review of Systems Review of Systems: 12 point review of systems was assessed and was negative except as noted in the HPI Exam Narrative: General: No acute distress, alert and oriented per baseline HEENT: Atraumatic, normocephalic, mucous membranes moist CV: Regular rate and rhythm, S1, S2 Lungs: Clear to auscultation bilaterally, no rales or crackles noted, no wheezes Abdomen: Soft, nontender, nondistended Extremities: Normal to inspection, no edema, suman hose on Skin: No rashes noted, no lesions or wounds seen Psych: Euthymic, normal affect Objective Data Vital Signs Vital Signs: Vital Signs - 24 hr 03/14/23 14:00 03/14/23 16:00 03/14/23 12:00 Temperature 97.6 F Pulse Rate 106
[2023-03-15 08:50] LABS: Glucose Point of Care 99 mg/dl (65-105)
[2023-03-15 11:28] LABS: Glucose Point of Care 161 mg/dl (65-105)
[2023-03-15] MEDS: INSULIN GLARGINE (*BKC) 100 UNITS/ML 10 UNITS SUB-Q (11:31)
--- NOTE | 2023-03-15 14:23 | PM.PNNEP ---
Progress Note: A&P Assessment and Plan (1) VISHNU (acute kidney injury): Code(s): N17.9 - Acute kidney failure, unspecified Status: Acute Assessment and Plan: as noted by trend of labs since admission (and previous admissions/hospitalizations in the last couple of months) likely related to several issues: significant anemia infection (pneumonia) -- progression to ATN?? prerenal factors CKD progression (?) evaluation to date: urine eosinophils negative some suggestion of prerenal azotemia by urine electrolytes proteinuria noted renal ultrasound (done in rehab and here) unremarkable renal scan results noted PRN diuretics to maintain volume status follow trend of repeat labs and UOP (2) Chronic kidney disease, stage IV (severe): Code(s): N18.4 - Chronic kidney disease, stage 4 (severe) Status: Acute Assessment and Plan: creatinine ~ 1.8 - 2.7mg/dl by outpatient records follows with Dr. Davis Ny for CKD managmenet suspect due to HTN, DM, vascular disease, and age-related change HOWEVER, since last hospitalization, creatinine running higher...closer to 3.3 - 3.6mg/dl (new baseline?) (3) Hyperkalemia: Code(s): E87.5 - Hyperkalemia Status: Acute Assessment and Plan: as noted by recent labs s/p medical management started on low K+ diet presumably secondary to #1 follow repeat K+ levels (4) Pneumonia: Qualifiers: Laterality: left Lung location: lower lobe of lung Pneumonia type: due to unspecified organism Qualified Code(s): J18.9 - Pneumonia, unspecified organism Code(s): J18.9 - Pneumonia, unspecified organism Status: Chronic Assessment and Plan: as suggested by admission imaging given recent/recurrent hospitalizations, being treated as nosocomial follow culture data on antibiotics (5) Anemia: Code(s): D64.9 - Anemia, unspecified Status: Chronic Assessment and Plan: as noted on admission acute on chronic suspect partly related to underlying CKD PRBC transfusion per protocol on S[facility] while hospitalized follow trend of H/H (6) Hypertension: Qualifiers: Hypertension type: primary hypertension Qualified Code(s): I10 - Essential (primary) hypertension Code(s): I10 - Essential (primary) hypertension Status: Chronic Assessment and Plan: reasonable control at this time possible overcontrol since recent issues with HTN urgency (?) off hydralazine follow trend of hemodynamics (7) Diabetes mellitus with chronic kidney disease: Code(s): E11.22 - Type 2 diabetes mellitus with diabetic chronic kidney disease Status: Chronic Assessment and Plan: follow accu-cheks glycemic control per hospitalists Will continue to follow. Subjective Date/time seen: 03/15/23 14:23 Interval history: Follow-up for acute kidney injury/acute renal failure on chronic kidney disease. Renal function/creatinine about the same but once again, hyperkalemia noted by AM labs today necessitating medical management interventions; no apparent distress noted this AM; discussed my concerns with him regarding his renal dysfunction and the likelihood that he may need dialysis in the future -- he reports his primary fixer supervisor had discussed this with him before. Exam Narrative: General: elderly but WD/WN male in NAD Heart: normal S1 and S2; no rub Lungs: clear anteriorly but decreased at bases Abdomen: soft, nontender, nondistended, positive bowel sounds Extremities: no cyanosis or clubbing; 1 - 2+ edema Skin: no rash Objective Data Vital Signs Vital Signs: Vital Signs Temp Pulse Resp BP Pulse Ox O2 Del Method O2 Flow Rate 03/15/23 14:10 93 Nasal Cannula 3 03/15/23 14:18 97.5 F L 62 18 133/61 93 03/15/23 12:01 64 03/15/23 07:30 65 18 92 Nasal Cannula 3 03/15/23 08:03 66
--- NOTE | 2023-03-15 14:23 | P.PNNP_ITS ---
Progress Note: A&P Assessment and Plan (1) VISHNU (acute kidney injury): Code(s): N17.9 - Acute kidney failure, unspecified Status: Acute Assessment and Plan: * as noted by trend of labs since admission (and previous admissions/hospitalizations in the last couple of months) * likely related to several issues: * significant anemia * infection (pneumonia) -- progression to ATN?? * prerenal factors * CKD progression (?) * evaluation to date: * urine eosinophils negative * some suggestion of prerenal azotemia by urine electrolytes * proteinuria noted * renal ultrasound (done in rehab and here) unremarkable * renal scan results noted * PRN diuretics to maintain volume status * follow trend of repeat labs and UOP (2) Chronic kidney disease, stage IV (severe): Code(s): N18.4 - Chronic kidney disease, stage 4 (severe) Status: Acute Assessment and Plan: * creatinine ~ 1.8 - 2.7mg/dl by outpatient records * follows with Dr. Davis Ny for CKD managmenet * suspect due to HTN, DM, vascular disease, and age-related change * HOWEVER, since last hospitalization, creatinine running higher...closer to 3.3 - 3.6mg/dl (new baseline?) (3) Hyperkalemia: Code(s): E87.5 - Hyperkalemia Status: Acute Assessment and Plan: * as noted by recent labs * s/p medical management * started on low K+ diet * presumably secondary to #1 * follow repeat K+ levels (4) Pneumonia: Qualifiers: Laterality: left Lung location: lower lobe of lung Pneumonia type: due to unspecified organism Qualified Code(s): J18.9 - Pneumonia, unspecified organism Code(s): J18.9 - Pneumonia, unspecified organism Status: Chronic Assessment and Plan: * as suggested by admission imaging * given recent/recurrent hospitalizations, being treated as nosocomial * follow culture data * on antibiotics (5) Anemia: Code(s): D64.9 - Anemia, unspecified Status: Chronic Assessment and Plan: * as noted on admission * acute on chronic * suspect partly related to underlying CKD * PRBC transfusion per protocol * on SALLY while hospitalized * follow trend of H/H (6) Hypertension: Qualifiers: Hypertension type: primary hypertension Qualified Code(s): I10 - Essential (primary) hypertension Code(s): I10 - Essential (primary) hypertension Status: Chronic Assessment and Plan: * reasonable control at this time * possible overcontrol since recent issues with HTN urgency (?) * off hydralazine * follow trend of hemodynamics (7) Diabetes mellitus with chronic kidney disease: Code(s): E11.22 - Type 2 diabetes mellitus with diabetic chronic kidney disease Status: Chronic Assessment and Plan: * follow accu-cheks * glycemic control per hospitalists Will continue to follow. Subjective Date/time seen: 03/15/23 14:23 Interval history: Follow-up for acute kidney injury/acute renal failure on chronic kidney disease. Renal function/creatinine about the same but once again, hyperkalemia noted by AM labs today necessitating medical management interventions; no apparent distress noted this AM; discussed my concerns with him regarding his renal dysfunction and the likelihood that he may need dialysis in the future -- he reports his primary marketing developer had discussed this with him before. Exam Narrative: General: elderly but WD/WN male in NAD Heart: nor
[2023-03-15 17:09] LABS: Glucose Point of Care 173 mg/dl (65-105)
[2023-03-15] MEDS: MELATONIN 5 MG TABLET PO (20:44)
[2023-03-15] MEDS: rOPINIRole HCL 0.5 MG TABLET PO (20:44)
[2023-03-15 20:48] LABS: Glucose Point of Care 184 mg/dl (65-105)
[2023-03-15 20:54] LABS: Glucose Point of Care 187 mg/dl (65-105)
[2023-03-16] VITALS (13 sets, daily range): BP systolic 134–154; BP diastolic 57–59; PULSE 58–75; RESP 18–20; TEMP 36.2–36.9; O2SAT 92–95
--- NOTE | 2023-03-16 00:35 | PCRCNOTE ---
Pt refused to wear CPAP tonight
[2023-03-16 07:07] LABS: Basophils Absolute Auto 0.2 K/mm3 (0.0-0.1); Basophils Percent Auto 2.1 % (0.2-1.2); Eosinophils Absolute Auto 0.3 K/mm3 (0-0.3); Eosinophils Percent Auto 4.5 % (0-4.4); Hematocrit 28.4 % (42.0-52.0); Hemoglobin 8.8 g/dL (14.0-18.0); Immature Granulocyte Absolute 0.19 K/mm3 (0.00-0.031); Immature Granulocyte Percent A 2.7 % (0-0.5); Lymphocytes Absolute Auto 0.66 K/mm3 (0.9-3.2); Lymphocytes Percent Auto 9.2 % (18.3-44.2); Mean Corpuscular Hemoglobin 33.1 pg (26-34); Mean Corpuscular Volume 106.8 fl (80-100); Mean Platelet Volume 11.1 fl (7.4-10.4); Monocytes Absolute Auto 0.9 K/mm3 (0.1-0.6); Monocytes Percent Auto 12.3 % (2.6-8.5); Neutrophils Percent Auto 69.2 % (45.5-73.1); Nucleated Red Blood Cells Absolute Auto 0.1 K/mm3 (0.0-0.012); Nucleated Red Blood Cells Perc 0.7 % (0.0-0.2); Platelet Count Result 322 k/mm3 (150-375); Red Blood Count 2.66 M/mm3 (4.6-6.20); Red Cell Distribution Width 19.4 % (11.5-14.5); White Blood Count 7.2 K/mm3 (4.5-10.0)
[2023-03-16 07:25] LABS: Alanine Aminotransferase 27 U/L (6-50); Alkaline Phosphatase 126 U/L (38-126); Anion Gap 7 mmol/L (8-16); Aspartate Amino Transferase 26 U/L (17-59); Bilirubin,Total 0.3 mg/dL (0.2-1.3); Blood Urea Nitrogen 93 mg/dL (9-20); Calcium 7.8 mg/dL (8.4-10.2); Carbon Dioxide 22 mmol/L (22-30); Chloride 106 mmol/L (98-107); Estimated CRCL calculation 15 ml/min; Estimated Glomerular Filt Rate 13; Glucose 121 mg/dL (65-110); Potassium 4.8 mmol/L (3.4-5.0); Sodium 135 mmol/L (137-145)
[2023-03-16 07:58] LABS: Anisocytosis 2+ (NORMAL); Macrocytosis 2+ (NORMAL); Platelet Estimate Adequate (Adequate); Schistocytes None Seen (NORMAL)
[2023-03-16] MEDS: amLODIPine BESYLATE 5 MG TABLET 10 MG PO (08:59)
[2023-03-16] MEDS: SODIUM BICARBONATE TAB 650 MG TABLET PO ×2 (08:59→17:26)
[2023-03-16] MEDS: buPROPion HCL 75 MG TABLET PO ×2 (08:59→20:30)
[2023-03-16] MEDS: carvediloL 6.25 MG TABLET PO ×2 (09:00→20:29)
[2023-03-16] MEDS: SERTRALINE HCL 25 MG TABLET PO (09:00)
[2023-03-16] MEDS: PANTOPRAZOLE 40 MG TABLET PO (09:00)
[2023-03-16] MEDS: SODIUM ZIRCONIUM CYCLOSILICATE 10 GM POWD.PACK PO ×2 (09:00→17:26)
[2023-03-16] MEDS: ASPIRIN 81 MG CHEWABLE TABLET PO (09:00)
[2023-03-16] MEDS: GABAPENTIN 100 MG CAPSULE PO ×2 (09:00→17:26)
[2023-03-16] MEDS: INSULIN GLARGINE (*BKC) 100 UNITS/ML 10 UNITS SUB-Q (09:00)
[2023-03-16 09:03] LABS: Glucose Point of Care 112 mg/dl (65-105)
--- NOTE | 2023-03-16 10:11 | PM.IMPN ---
Progress Note: A&P Assessment and Plan (1) VISHNU (acute kidney injury): Code(s): N17.9 - Acute kidney failure, unspecified Status: Acute (2) Chronic kidney disease, stage IV (severe): Code(s): N18.4 - Chronic kidney disease, stage 4 (severe) Status: Acute (3) Pneumonia: Qualifiers: Laterality: left Lung location: lower lobe of lung Pneumonia type: due to unspecified organism Qualified Code(s): J18.9 - Pneumonia, unspecified organism Code(s): J18.9 - Pneumonia, unspecified organism Status: Chronic (4) Anemia: Code(s): D64.9 - Anemia, unspecified Status: Chronic (5) Hypertension: Qualifiers: Hypertension type: primary hypertension Qualified Code(s): I10 - Essential (primary) hypertension Code(s): I10 - Essential (primary) hypertension Status: Chronic (6) Diabetes mellitus with chronic kidney disease: Code(s): E11.22 - Type 2 diabetes mellitus with diabetic chronic kidney disease Status: Chronic Plan 77-year-old male with history of diabetes, COPD, sleep apnea is presenting with generalized weakness and currently being treated for possible pneumonia 1)Nosocomial Pna: completed 10 day course of doxycycline on mar 15 2)Acute on Chronic Kidney Disease with hyperkalemia: Monitor kidney function Worsening Renal Following Avoid nephrotoxins Recheck BMP in AM ?need for dialysis in near future, will leave that discussion with nephrology 3)Anemia: acute on Chronic 2/2 Anemia of Chronic disease Monitor H/H s/p 2 units of PRBC this admission c/w epogen 4)Mild Bradycardia: resolved with decreased dose of coreg 5)Diabetes mellitus: BG check TID AC and HS c/w lantus Adjust insulin as needed 6)DVT ppx:SCD, has anemia 7)Code:Full 8)Dispo:pending improvement complexity:moderate Time Spent With Patient Time with patient: 25 - 35 minutes Subjective Date/time seen: 03/16/23 10:11 Interval history: ? confused/drowsy overnight Seems to be doing good this morning, sitting in chair, eating breakfast Review of Systems Review of Systems: 12 point review of systems was assessed and was negative except as noted in the HPI Exam Narrative: General: No acute distress, alert and oriented per baseline HEENT: Atraumatic, normocephalic, mucous membranes moist CV: Regular rate and rhythm, S1, S2 Lungs: Clear to auscultation bilaterally, no rales or crackles noted, no wheezes Abdomen: Soft, nontender, nondistended Extremities: Normal to inspection, edema+, suman hose on Skin: No rashes noted, no lesions or wounds seen Psych: Euthymic, normal affect Objective Data Vital Signs Vital Signs: Vital Signs - 24 hr 03/15/23 12:01 03/15/23 14:18 03/15/23 14:10 Temperature 97.5 F L Pulse Rate 64 62 Respiratory Rate 18 Blood Pressure 133/61 Pulse Oximetry 93 93 Oxygen Delivery Nasal Cannula Oxygen Flow Rate 3 03/15/23 16:05 03/15/23 20:13 03/15/23 20:44 Temperature 97 F L Pulse Rate 60 63 60 Respiratory Rate 18 Blood Pressure 146/56 H Pulse Oximetry 93 Oxygen Delivery Oxygen Flow Rate 03/15/23 20:45 03/16/23 00:36 03/16/23 00:37 Temperature Pulse Rate Respiratory Rate Blood Pressure Pulse Oximetry 94 Oxygen Delivery Nasal Cannula Autopap Nasal Cannula Oxygen Flow Rate 3 3 03/15/23 20:00 03/16/23 00:00 03/16/23 04:00 Temperature Pulse Rate 64 61 63 Respiratory Rate Blood Pressure Pulse Oximetry Oxygen Delivery Oxygen Flow Rate 03/16/23 04:48 03/16/23 09:00 03/16/23 08:00 Temperature 97.1 F L Pulse Rate 65 68 Respiratory Rate 19 Blood Pressure 143/57 H Pulse Oximetry 92 93 Oxygen Delivery Nasal Cannula Oxygen Flow Rate 3 03/16/23 08:00 Temperature Pulse Rate 68 Respiratory Rate Blood Pressure Pulse Oximetry Oxygen Delivery Oxygen Flow Rate Intake/Output Intake/Output: Intake &
[2023-03-16] MEDS: EPOETIN ALFA 10,000 UNITS/ML VIAL 10000 UNITS SUB-Q (10:26)
[2023-03-16 12:12] LABS: Glucose Point of Care 116 mg/dl (65-105)
--- NOTE | 2023-03-16 13:23 | PM.PNNEP ---
Progress Note: A&P Assessment and Plan (1) VISHNU (acute kidney injury): Code(s): N17.9 - Acute kidney failure, unspecified Status: Acute Assessment and Plan: as noted by trend of labs since admission (and previous admissions/hospitalizations in the last couple of months) creatinine relatively unchanged since admission likely related to several issues: significant anemia infection (pneumonia) -- progression to ATN?? prerenal factors likely an element of CKD progression as well evaluation to date: urine eosinophils negative some suggestion of prerenal azotemia by urine electrolytes proteinuria noted renal ultrasound (done in rehab and here) unremarkable renal scan results noted PRN diuretics to maintain volume status follow trend of repeat labs and UOP (2) Chronic kidney disease, stage IV (severe): Code(s): N18.4 - Chronic kidney disease, stage 4 (severe) Status: Acute Assessment and Plan: creatinine ~ 1.8 - 2.7mg/dl by outpatient records follows with Dr. Davis Ny for CKD managmenet suspect due to HTN, DM, vascular disease, and age-related change HOWEVER, since last hospitalization, creatinine running higher...closer to 3.3 - 3.6mg/dl (new baseline?) now his creatinine is in the mid 4s for the last several days.... (3) Hyperkalemia: Code(s): E87.5 - Hyperkalemia Status: Acute Assessment and Plan: as noted by recent labs s/p medical management started on low K+ diet and lokelma presumably secondary to #1 follow repeat K+ levels (4) Pneumonia: Qualifiers: Laterality: left Lung location: lower lobe of lung Pneumonia type: due to unspecified organism Qualified Code(s): J18.9 - Pneumonia, unspecified organism Code(s): J18.9 - Pneumonia, unspecified organism Status: Chronic Assessment and Plan: as suggested by admission imaging given recent/recurrent hospitalizations, being treated as nosocomial culture data noted completed course on antibiotics still requiring supplemental oxygen - recheck CXR does he need chronic diuretic therapy (?) - this may help keep his K+ stable as well (5) Anemia: Code(s): D64.9 - Anemia, unspecified Status: Chronic Assessment and Plan: as noted on admission acute on chronic suspect partly related to underlying CKD PRBC transfusion per protocol on [facility] while hospitalized follow trend of H/H (6) Hypertension: Qualifiers: Hypertension type: primary hypertension Qualified Code(s): I10 - Essential (primary) hypertension Code(s): I10 - Essential (primary) hypertension Status: Chronic Assessment and Plan: reasonable control at this time possible overcontrol since recent issues with HTN urgency (?) off hydralazine follow trend of hemodynamics (7) Diabetes mellitus with chronic kidney disease: Code(s): E11.22 - Type 2 diabetes mellitus with diabetic chronic kidney disease Status: Chronic Assessment and Plan: follow accu-cheks glycemic control per hospitalists Would not necessarily be opposed to discharge from renal perspective if otherwise medically stable; he will need close follow-up with regard to his tenuous kidney function; long and extensive discussion (> 20 minutes) with patient as well as his by phone regarding this issue and my recommendations to see his primary furniture shampooer, Dr. Davis Ny, fairly soon after discharge for ongoing management of his advanced CKD - they both voiced understanding to this. Will continue to follow. Subjective Date/time seen: 03/16/23 13:23 Interval history: Follow-up for acute kidney injury/acute renal failure on chronic kidney disease. No real significant change noted with regard to his renal function; K+ seems better controlled with scheduled lokelma; no apparent distress voiced at the time of my visit; eating and drinking ok
--- NOTE | 2023-03-16 13:23 | P.PNNP_ITS ---
Progress Note: A&P Assessment and Plan (1) VISHNU (acute kidney injury): Code(s): N17.9 - Acute kidney failure, unspecified Status: Acute Assessment and Plan: * as noted by trend of labs since admission (and previous admissions/hospitalizations in the last couple of months) * creatinine relatively unchanged since admission * likely related to several issues: * significant anemia * infection (pneumonia) -- progression to ATN?? * prerenal factors * likely an element of CKD progression as well * evaluation to date: * urine eosinophils negative * some suggestion of prerenal azotemia by urine electrolytes * proteinuria noted * renal ultrasound (done in rehab and here) unremarkable * renal scan results noted * PRN diuretics to maintain volume status * follow trend of repeat labs and UOP (2) Chronic kidney disease, stage IV (severe): Code(s): N18.4 - Chronic kidney disease, stage 4 (severe) Status: Acute Assessment and Plan: * creatinine ~ 1.8 - 2.7mg/dl by outpatient records * follows with Dr. Davis Ny for CKD managmenet * suspect due to HTN, DM, vascular disease, and age-related change * HOWEVER, since last hospitalization, creatinine running higher...closer to 3.3 - 3.6mg/dl (new baseline?) * now his creatinine is in the mid 4s for the last several days.... (3) Hyperkalemia: Code(s): E87.5 - Hyperkalemia Status: Acute Assessment and Plan: * as noted by recent labs * s/p medical management * started on low K+ diet and lokelma * presumably secondary to #1 * follow repeat K+ levels (4) Pneumonia: Qualifiers: Laterality: left Lung location: lower lobe of lung Pneumonia type: due to unspecified organism Qualified Code(s): J18.9 - Pneumonia, unspecified organism Code(s): J18.9 - Pneumonia, unspecified organism Status: Chronic Assessment and Plan: * as suggested by admission imaging * given recent/recurrent hospitalizations, being treated as nosocomial * culture data noted * completed course on antibiotics * still requiring supplemental oxygen - recheck CXR * does he need chronic diuretic therapy (?) - this may help keep his K+ stable as well (5) Anemia: Code(s): D64.9 - Anemia, unspecified Status: Chronic Assessment and Plan: * as noted on admission * acute on chronic * suspect partly related to underlying CKD * PRBC transfusion per protocol * on SALLY while hospitalized * follow trend of H/H (6) Hypertension: Qualifiers: Hypertension type: primary hypertension Qualified Code(s): I10 - Essential (primary) hypertension Code(s): I10 - Essential (primary) hypertension Status: Chronic Assessment and Plan: * reasonable control at this time * possible overcontrol since recent issues with HTN urgency (?) * off hydralazine * follow trend of hemodynamics (7) Diabetes mellitus with chronic kidney disease: Code(s): E11.22 - Type 2 diabetes mellitus with diabetic chronic kidney disease Status: Chronic Assessment and Plan: * follow accu-cheks * glycemic control per hospitalists Would not necessarily be opposed to discharge from renal perspective if otherwise medically stable; he will need close follow-up with regard to his tenuous kidney function; long and extensive discussion (> 20 minutes) with patient as well as his by phone regarding this issue and my recommendations to see his primary spinning room worker, Dr. Davis Ny, fairly soon after di
[2023-03-16 17:37] LABS: Glucose Point of Care 109 mg/dl (65-105)
[2023-03-16 19:48] LABS: Glucose Point of Care 150 mg/dl (65-105)
[2023-03-16] MEDS: rOPINIRole HCL 0.5 MG TABLET PO (20:30)
[2023-03-17] VITALS (8 sets, daily range): BP systolic 134–159; BP diastolic 62–64; PULSE 64–88; RESP 17–18; TEMP 35.9–36.6; O2SAT 91–94
[2023-03-17 06:21] LABS: Basophils Absolute Auto 0.2 K/mm3 (0.0-0.1); Basophils Percent Auto 2.2 % (0.2-1.2); Eosinophils Absolute Auto 0.3 K/mm3 (0-0.3); Eosinophils Percent Auto 5.1 % (0-4.4); Hematocrit 28.3 % (42.0-52.0); Hemoglobin 8.8 g/dL (14.0-18.0); Immature Granulocyte Absolute 0.18 K/mm3 (0.00-0.031); Immature Granulocyte Percent A 2.7 % (0-0.5); Mean Corpuscular HGB Conc 31.1 g/dl (32-36); Mean Corpuscular Hemoglobin 32.7 pg (26-34); Mean Corpuscular Volume 105.2 fl (80-100); Mean Platelet Volume 11.1 fl (7.4-10.4); Monocytes Absolute Auto 0.9 K/mm3 (0.1-0.6); Monocytes Percent Auto 13.3 % (2.6-8.5); Neutrophils Absolute Auto 4.3 K/mm3 (1.3-6.7); Neutrophils Percent Auto 64.7 % (45.5-73.1); Nucleated Red Blood Cells Absolute Auto 0.1 K/mm3 (0.0-0.012); Nucleated Red Blood Cells Perc 1.3 % (0.0-0.2); Platelet Count Result 312 k/mm3 (150-375); Red Blood Count 2.69 M/mm3 (4.6-6.20); Red Cell Distribution Width 19.6 % (11.5-14.5); White Blood Count 6.7 K/mm3 (4.5-10.0)
[2023-03-17 06:34] LABS: Alanine Aminotransferase 24 U/L (6-50); Albumin Level 2.9 g/dL (3.5-5.1); Alkaline Phosphatase 121 U/L (38-126); Anion Gap 9 mmol/L (8-16); Aspartate Amino Transferase 23 U/L (17-59); Bilirubin,Total 0.3 mg/dL (0.2-1.3); Blood Urea Nitrogen 91 mg/dL (9-20); Calcium 7.7 mg/dL (8.4-10.2); Carbon Dioxide 23 mmol/L (22-30); Chloride 108 mmol/L (98-107); Estimated CRCL calculation 16 ml/min; Estimated Glomerular Filt Rate 13; Glucose 123 mg/dL (65-110); Potassium 4.3 mmol/L (3.4-5.0); Sodium 140 mmol/L (137-145)
[2023-03-17 07:01] LABS: Anisocytosis 1+ (NORMAL); Burr Cells 1+ (NORMAL); Macrocytosis 2+ (NORMAL); Platelet Estimate Adequate (Adequate); Schistocytes None Seen (NORMAL)
[2023-03-17 08:40] LABS: Glucose Point of Care 120 mg/dl (65-105)
[2023-03-17] MEDS: ASPIRIN 81 MG CHEWABLE TABLET PO (08:54)
[2023-03-17] MEDS: GABAPENTIN 100 MG CAPSULE PO ×2 (08:54→17:34)
[2023-03-17] MEDS: SODIUM BICARBONATE TAB 650 MG TABLET PO (08:55)
[2023-03-17] MEDS: SERTRALINE HCL 25 MG TABLET PO (08:56)
[2023-03-17] MEDS: amLODIPine BESYLATE 5 MG TABLET 10 MG PO (08:56)
[2023-03-17] MEDS: carvediloL 6.25 MG TABLET PO (08:56)
[2023-03-17] MEDS: buPROPion HCL 75 MG TABLET PO (08:56)
[2023-03-17] MEDS: SODIUM ZIRCONIUM CYCLOSILICATE 10 GM POWD.PACK PO ×2 (08:57→17:34)
[2023-03-17] MEDS: INSULIN GLARGINE (*BKC) 100 UNITS/ML 10 UNITS SUB-Q (08:57)
--- NOTE | 2023-03-17 11:16 | PM.DS ---
DS: Admitting Diagnosis Discharge Date 03/17/2023 Admitting Diagnosis Acute on chronic renal failure Pneumonia DS: Discharge Diagnosis Discharge Diagnosis (1) Hyperkalemia: Code(s): E87.5 - Hyperkalemia Status: Acute (2) Anemia: Qualifiers: Anemia type: unspecified type Qualified Code(s): D64.9 - Anemia, unspecified Code(s): D64.9 - Anemia, unspecified Status: Acute (3) Nosocomial pneumonia: Code(s): J18.9 - Pneumonia, unspecified organism; [id number] - Nosocomial condition Status: Acute (4) Diabetes mellitus with chronic kidney disease: Code(s): E11.22 - Type 2 diabetes mellitus with diabetic chronic kidney disease Status: Chronic (5) Chronic kidney disease, stage IV (severe): Code(s): N18.4 - Chronic kidney disease, stage 4 (severe) Status: Acute DS: Summary Hospital Course Hospital Course: Patient was admitted with nosocomial pneumonia, hyperkalemia and VISHNU (acute kidney injury). He was started on antibiotics and has finished a course of antibiotics. Nephrology was consulted for his acute kidney injury on chronic kidney disease. Nephrology recommendations: VISHNU on CKD likely related to several issues: significant anemia infection (pneumonia) -- progression to ATN?? prerenal factors likely an element of CKD progression as well urine eosinophils negative some suggestion of prerenal azotemia by urine electrolytes proteinuria noted renal ultrasound (done in rehab and here) unremarkable renal scan results noted creatinine ~ 1.8 - 2.7mg/dl by outpatient records follows with Dr. Davis Ny for CKD managmenet suspect due to HTN, DM, vascular disease, and age-related change HOWEVER, since last hospitalization, creatinine running higher...closer to 3.3 - 3.6mg/dl (new baseline?). now his creatinine is in the mid 4s for the last several days. Per nephrology he is okay to be discharged home. Patient to follow-up with his sr community manager Dr. Ny for outpatient management. Patient is back to his baseline. He is on home CPAP with oxygen Time Spent with Patient Time attestation: Total time spent providing and/or coordinating discharge services: DS: Data Data Completed and Pending Labs on day of discharge: Labs from last 24 hours 03/17/23 03/17/23 03/16/23 08:36 05:59 19:43 WBC 6.7 RBC 2.69 L Hgb 8.8 L Hct 28.3 L MCV 105.2 H MCH 32.7 MCHC 31.1 L RDW 19.6 H Plt Count 312 MPV 11.1 H Immature Gran % (Auto) 2.7 H Neut % (Auto) 64.7 Lymph % (Auto) 12.0 L [place] % (Auto) 13.3 H Eos % (Auto) 5.1 H Baso % (Auto) 2.2 H Lymph # (Auto) 0.80 L [place] # (Auto) 0.9 H Eos # (Auto) 0.3 Baso # (Auto) 0.2 H Abs Immat Gran (auto) 0.18 H Absolute Neuts (auto) 4.3 Absolute Nucleated RBC 0.1 H Nucleated RBC % 1.3 H Platelet Estimate Adequate Anisocytosis 1+ Macrocytosis 2+ Angela Cells 1+ Schistocytes None seen Sodium 140 Potassium 4.3 Chloride 108 H Carbon Dioxide 23 Anion Gap 9 BUN 91 H Creatinine 4.40 H Estim Creat Clear Calc 16 Estimated GFR 13 L Glucose 123 H POC Capillary Glucose 120 H 150 H Calcium 7.7 L Total Bilirubin 0.3 AST 23 ALT 24 Alkaline Phosphatase 121 Total Protein 6.0 L Albumin 2.9 L 03/16/23 03/16/23 17:33 12:09 WBC RBC Hgb Hct MCV MCH MCHC RDW Plt Count MPV Immature Gran % (Auto) Neut % (Auto) Lymph % (Auto) [place] % (Auto) Eos % (Auto) Baso % (Auto) Lymph # (Auto) [place] # (Auto) Eos # (Auto) Baso # (Auto) Abs Immat Gran (auto) Absolute Neuts (auto) Absolute Nucleated RBC Nucleated RBC % Platelet Estimate Anisocytosis Macrocytosis Angela Cells Schistocytes Sodium Potassium Chloride Carbon Dioxide Anion Gap BUN Creatinine Estim Creat Clear Calc Estimated GFR Glucose P
--- NOTE | 2023-03-17 11:45 | P.PNNP_ITS ---
Progress Note: A&P Assessment and Plan (1) VISHNU (acute kidney injury): Code(s): N17.9 - Acute kidney failure, unspecified Status: Acute Assessment and Plan: * as noted by trend of labs since admission (and previous admissions/hospitalizations in the last couple of months) * creatinine relatively unchanged since admission * likely related to several issues: * significant anemia * infection (pneumonia) -- progression to ATN?? * prerenal factors * likely an element of CKD progression as well * evaluation to date: * urine eosinophils negative * some suggestion of prerenal azotemia by urine electrolytes * proteinuria noted * renal ultrasound (done in rehab and here) unremarkable * renal scan results noted * It looks like the acute portion of his kidney disease is resolved and he is left with a chronic new baseline. (2) Chronic kidney disease, stage IV (severe): Code(s): N18.4 - Chronic kidney disease, stage 4 (severe) Status: Acute Assessment and Plan: * creatinine ~ 1.8 - 2.7mg/dl by outpatient records * follows with Dr. Davis Ny for CKD managmenet * suspect due to HTN, DM, vascular disease, and age-related change * The patient has a new baseline in the mid 4s. His GFR is 13. * He does not have any symptoms of uremia. volume status looks okay. * I think he is okay without dialysis now. However he should call Dr. Ny as soon as he gets home to make an appointment with him. He will need education about the type of dialysis and possibly fistula placement soon if he decides on in center hemo or home hemodialysis. If he chooses peritoneal dialysis placement would be closer to when he starts the treatments. * His bicarb is up to 23 now. Stop bicarb since it has sodium load. (3) Hyperkalemia: Code(s): E87.5 - Hyperkalemia Status: Acute Assessment and Plan: * as noted by recent labs * currently on low K+ diet and lokelma * Potassium is normal today (4) Pneumonia: Qualifiers: Laterality: left Lung location: lower lobe of lung Pneumonia type: due to unspecified organism Qualified Code(s): J18.9 - Pneumonia, unspecified organism Code(s): J18.9 - Pneumonia, unspecified organism Status: Chronic Assessment and Plan: * as suggested by admission imaging * given recent/recurrent hospitalizations, being treated as nosocomial * culture data noted * completed course on antibiotics * still requiring supplemental oxygen he has been on home oxygen before all this. * Chest x-ray still shows some fluid but it is improved. * Will start a low-dose of loop diuretic. (5) Anemia: Code(s): D64.9 - Anemia, unspecified Status: Chronic Assessment and Plan: * as noted on admission * Hemoglobin 8.8. * He is on Epogen (6) Hypertension: Qualifiers: Hypertension type: primary hypertension Qualified Code(s): I10 - Essential (primary) hypertension Code(s): I10 - Essential (primary) hypertension Status: Chronic Assessment and Plan: * Systolic is running 130s to 150s. * Mild diuresis may help his blood pressure. (7) Diabetes mellitus with chronic kidney disease: Code(s): E11.22 - Type 2 diabetes mellitus with diabetic chronic kidney disease Status: Chronic Assessment and Plan: * follow accu-cheks * glycemic control per hospitalists Plan Long discussion with the patient and his daughter and the outpatient case manager. He may be too weak to go home. He had previously insisted on going
--- NOTE | 2023-03-17 11:45 | PM.PNNEP ---
Progress Note: A&P Assessment and Plan (1) VISHNU (acute kidney injury): Code(s): N17.9 - Acute kidney failure, unspecified Status: Acute Assessment and Plan: as noted by trend of labs since admission (and previous admissions/hospitalizations in the last couple of months) creatinine relatively unchanged since admission likely related to several issues: significant anemia infection (pneumonia) -- progression to ATN?? prerenal factors likely an element of CKD progression as well evaluation to date: urine eosinophils negative some suggestion of prerenal azotemia by urine electrolytes proteinuria noted renal ultrasound (done in rehab and here) unremarkable renal scan results noted It looks like the acute portion of his kidney disease is resolved and he is left with a chronic new baseline. (2) Chronic kidney disease, stage IV (severe): Code(s): N18.4 - Chronic kidney disease, stage 4 (severe) Status: Acute Assessment and Plan: creatinine ~ 1.8 - 2.7mg/dl by outpatient records follows with Dr. Davis Ny for CKD managmenet suspect due to HTN, DM, vascular disease, and age-related change The patient has a new baseline in the mid 4s. His GFR is 13. He does not have any symptoms of uremia. volume status looks okay. I think he is okay without dialysis now. However he should call Dr. Ny as soon as he gets home to make an appointment with him. He will need education about the type of dialysis and possibly fistula placement soon if he decides on in center hemo or home hemodialysis. If he chooses peritoneal dialysis placement would be closer to when he starts the treatments. His bicarb is up to 23 now. Stop bicarb since it has sodium load. (3) Hyperkalemia: Code(s): E87.5 - Hyperkalemia Status: Acute Assessment and Plan: as noted by recent labs currently on low K+ diet and lokelma Potassium is normal today (4) Pneumonia: Qualifiers: Laterality: left Lung location: lower lobe of lung Pneumonia type: due to unspecified organism Qualified Code(s): J18.9 - Pneumonia, unspecified organism Code(s): J18.9 - Pneumonia, unspecified organism Status: Chronic Assessment and Plan: as suggested by admission imaging given recent/recurrent hospitalizations, being treated as nosocomial culture data noted completed course on antibiotics still requiring supplemental oxygen he has been on home oxygen before all this. Chest x-ray still shows some fluid but it is improved. Will start a low-dose of loop diuretic. (5) Anemia: Code(s): D64.9 - Anemia, unspecified Status: Chronic Assessment and Plan: as noted on admission Hemoglobin 8.8. He is on Epogen (6) Hypertension: Qualifiers: Hypertension type: primary hypertension Qualified Code(s): I10 - Essential (primary) hypertension Code(s): I10 - Essential (primary) hypertension Status: Chronic Assessment and Plan: Systolic is running 130s to 150s. Mild diuresis may help his blood pressure. (7) Diabetes mellitus with chronic kidney disease: Code(s): E11.22 - Type 2 diabetes mellitus with diabetic chronic kidney disease Status: Chronic Assessment and Plan: follow accu-cheks glycemic control per hospitalists Plan Long discussion with the patient and his daughter and the rn case management. He may be too weak to go home. He had previously insisted on going home but now has changed his mind and wants to go to outpatient rehab. Subjective Date/time seen: 03/17/23 11:45 Interval history: Kenneth feels okay today. His daughter is in the room. No chest pain or shortness of breath. Apparently case Management was just in the room and was talking to him about going to rehab. The patient wanted to go home at the time of the conversation. However now he has changed his mind and may want to go to
[2023-03-17 12:03] LABS: Glucose Point of Care 210 mg/dl (65-105)
[2023-03-17] MEDS: FUROSEMIDE 40 MG TABLET PO (12:23)
[2023-03-17 16:03] LABS: SARS-CoV-2 RNA PCR Negative (Negative)
[2023-03-17 17:14] LABS: Glucose Point of Care 235 mg/dl (65-105)
[2023-03-21 05:09] LABS: Potassium 6.1 mmol/L (3.4-5.0)
== END 2023-03-17 18:05 | DRG 682 ==
LOC: ANHED 20:16 → ANH2MED 21:08
PROVIDERS: Emergency Medicine; Internal Medicine Nephrology; Student in an Organized Health Care Education/Training Program; Admitting Provider Internal Medicine; Emergency Provider Physician Assistant; PCP Hospitalist; Visit Provider Hospitalist
DX: N17.9 Acute kidney failure, unspecified (principal); J18.9 Pneumonia, unspecified organism; I13.0 Hypertensive heart and chronic kidney disease with heart failure and stage 1 through stage 4 chronic kidney disease, or unspecified chronic kidney disease; I50.32 Chronic diastolic (congestive) heart failure; N18.4 Chronic kidney disease, stage 4 (severe); E11.22 Type 2 diabetes mellitus with diabetic chronic kidney disease; E87.71 Transfusion associated circulatory overload; E87.5 Hyperkalemia; E11.42 Type 2 diabetes mellitus with diabetic polyneuropathy; J44.9 Chronic obstructive pulmonary disease, unspecified; D63.8 Anemia in other chronic diseases classified elsewhere; N31.9 Neuromuscular dysfunction of bladder, unspecified; Y95 Nosocomial condition; B95.62 Methicillin resistant Staphylococcus aureus infection as the cause of diseases classified elsewhere; M19.90 Unspecified osteoarthritis, unspecified site; G47.33 Obstructive sleep apnea (adult) (pediatric); R29.6 Repeated falls; F32.A Depression, unspecified; Z20.822 Contact with and (suspected) exposure to COVID-19; Z87.891 Personal history of nicotine dependence; Z79.82 Long term (current) use of aspirin; Z79.4 Long term (current) use of insulin
CPT/HCPCS: 36415; 36430; 36600; 70450; 71045; 71046; 73502; 73564; 76775; 78707; 80048; 80053; 80202; 81001; 81050; 82274; 82436; 82550; 82570; 82805; 82948; 83880; 84145; 84156; 84300; 84540; 85014; 85018; 85025; 85999; 86140; 86850; 86900; 86901; 86923; 87040; 87081; 87635; 93005; 93970; 93971; 94640; 96365; 96367; 97110; 97161; 97165; 97530; 97535; 99285; A9270; A9562; C9113; G0378; J0456; J0612; J0692; J0696; J1815; J1940; J3370; J7050; P9016; Q4081

== ENCOUNTER 2023-03-27 13:47 | Inpatient (IN) | payer MEDICARE, SELFPAY ==
[2023-03-27] VITALS (11 sets, daily range): BP systolic 91–142; BP diastolic 44–66; PULSE 43–56; RESP 12–22; TEMP 32.9–35.2; O2SAT 95–97; BMI 39.1
--- NOTE | ~2023-03-27 | XR_ITS ---
EXAMINATION: XR fl guide central line place DATE: 03/29/2023 13:30 CDT INDICATION: TUNNELED DIALYSIS CATH PLACEMENT . TECHNIQUE: 1 fluoroscopic image of the upper chest were obtained during tunneled dialysis catheter pl acement performed by the surgeon. I was not present in the operating room. Fluoroscopy exposure time was 12.7 seconds. Air Kerma 4.8429 mGy. DAP 0.0960 mGym2. COMPARISON: X-ray chest 03/27/2023 FINDINGS: A single image demonstrates a central line terminating in the distal SVC. IMPRESSION: Fluoroscopic documentation of tunneled dialysis catheter placement. Please refer to the operative not e for complete procedural details . Reviewed, dictated and finalized at location K. IMPRESSION: Fluoroscopic documentation of tunneled dialysis catheter placement. Please refe r to the operative note for complete procedural details .
--- NOTE | ~2023-03-27 | XR_ITS ---
EXAMINATION: XR chest port-a-cath/central DATE: 04/04/2023 14:50 INDICATION: Central line placement. TECHNIQUE: A single frontal view of the chest was obtained. COMPARISON: Chest single view 04/03/2023 FINDINGS: There are airspace opacities in all lung zones bilaterally. There are small pleural effusio ns. No pneumothorax. Cardiomegaly is noted. There is a right internal jugular central venous catheter with tip in right atrium. IMPRESSION: 1. Central line tip in right atrium. 2. Worsened diffuse lung disease, consistent with pulmonary edema versus pneumonia. 3. Small pleural effusions with worsening on the left. 4. Cardiomegaly. Reviewed, dictated and finalized at location A. IMPRESSION: 1. Central line tip in right atrium. 2. Worsened diffuse lung disease, consistent with pulmonary edema versus pneumo rubi. 3. Small pleural effusions with worsening on the left. 4. Cardiomegaly.
--- NOTE | ~2023-03-27 | XR_ITS ---
EXAMINATION: XR chest 1V portable DATE: 04/01/2023 01:21 INDICATION: Hypoxia. TECHNIQUE: A single frontal view of the chest was obtained. COMPARISON: Chest view 03/29/2023, CT abdomen and pelvis 03/27/2023 FINDINGS: There is a small right pleural effusion. There are airspace opacities in all right lung zon es and in left perihilar region. No pneumothorax. Cardiomegaly is noted. There is a right subclavian central venous catheter with tip in superior vena cava. IMPRESSION: 1. Small right pleural effusion with interval improvement. 2. Airspace opacities in right lung and left perihilar region with slight improvement on the right, c onsistent with atelectasis versus pneumonia versus pulmonary edema. 3. Cardiomegaly. Reviewed, dictated and finalized at location A. IMPRESSION: 1. Small right pleural effusion with interval improvement. 2. Airspace opacities in right lung and left perihilar region with slight impro vement on the right, consistent with atelectasis versus pneumonia versus pulmon crissy edema. 3. Cardiomegaly.
--- NOTE | ~2023-03-27 | CT_ITS ---
EXAMINATION: CT brain wo con DATE: 03/27/2023 15:12 INDICATION: ams . TECHNIQUE: Computed tomography (CT) of the head was performed without intravenous contrast. The mA wa s adjusted according to patient size. Iterative reconstruction technique was employed. The dose-lengt h product was 756.67 mGy-cm. COMPARISON: 03/06/2023. FINDINGS: Mild motion artifact. No acute intracranial hemorrhage or extra-axial fluid collection. No hydrocephalus, mass, or herniation. No acute ischemic infarct. Unremarkable dural venous sinus attenuation. No acute osseous abnormality. Mild mucosal thickening in the ethmoid air cells, the remaining aerated spaces are clear. Moderate atrophy and chronic white matter change. Atherosclerotic intracranial calcification. Bilater al lens replacements. IMPRESSION: No acute intracranial process. Reviewed, dictated and finalized at location K.
--- NOTE | ~2023-03-27 | XR_ITS ---
EXAMINATION: XR chest 1V portable DATE: 04/08/2023 16:13 INDICATION: Hypoxia TECHNIQUE: frontal view of the chest was obtained. COMPARISON: Chest radiograph dated 04/04/2023 FINDINGS: Large-bore dual-lumen right internal jugular central venous catheter with distal tip in the right atr ium. Interval decrease in diffuse airspace opacities throughout both lungs. No new airspace opacities or pneumothorax. Blunting at the right costophrenic angle and left cardiophrenic angle suggesting sm all bilateral pleural effusions. Cardiomegaly. There are bridging osteophytes at multiple levels in t he spine, consistent with diffuse idiopathic skeletal hyperostosis (DISH). IMPRESSION: 1. Decreasing diffuse bilateral lung disease consistent with improving pulmonary edema versus pneumon ia. 2. Likely small bilateral pleural effusions, decreased on the left. 3. Cardiomegaly. Reviewed, dictated and finalized at location A. IMPRESSION: 1. Decreasing diffuse bilateral lung disease consistent with improving pulmonar y edema versus pneumonia. 2. Likely small bilateral pleural effusions, decreased on the left. 3. Cardiomegaly.
--- NOTE | ~2023-03-27 | XR_ITS ---
EXAMINATION: XR chest 1V portable Exam Date/Time: 03/27/2023 14:50 CDT HISTORY: ams/ SWELLING Comparison: 03/16/2023. RESULT: Lines, tubes, and devices: None. Lungs and pleura: Low volumes with crowding. Persistent diffuse bilateral reticular opacities and sc attered patchy subsegmental airspace opacities. Increased right basilar airspace disease. Increased r ight costophrenic angle blunting. Cardiomediastinal silhouette: Stable. Other: No acute osseous or upper abdominal finding. IMPRESSION: Pulmonary opacities likely represent pulmonary edema with increasing right basilar atelectasis and in creasing but still small right pleural effusion. Infection is not excluded. Reviewed, dictated and finalized at location K. IMPRESSION: Pulmonary opacities likely represent pulmonary edema with increasing right basi lar atelectasis and increasing but still small right pleural effusion. Infectio n is not excluded.
--- NOTE | ~2023-03-27 | XR_ITS ---
XR fl guide central line place 04/04/2023 14:43 Indication: Central venous catheter placement Procedure: 3 fluoroscopic images of the chest. 22 seconds of fluoroscopy. Comparison: Chest dated 04/03/2023 Findings: Central venous catheter tip in the caudal aspect of the SVC. Otherwise, the study is limite d for evaluation of lung parenchyma. Impression: 1: Status post interval placement of right internal jugular central venous catheter, tip in the SVC. Reviewed, dictated and finalized at location B. Impression: 1: Status post interval placement of right internal jugular central venous cath eter, tip in the SVC.
--- NOTE | ~2023-03-27 | XR_ITS ---
EXAMINATION: XR chest port-a-cath/central DATE: 03/29/2023 14:37 INDICATION: Tunneled dialysis catheter placement TECHNIQUE: frontal view of the chest was obtained. COMPARISON: Chest radiograph dated 03/27/2023 FINDINGS: Interval placement of a dual-lumen right subclavian central venous catheter with distal tip near the superior cavoatrial junction. Extensive airspace opacity throughout the right hemithorax likely moder ate-sized right pleural effusion. Scattered less dense opacities in the left hemithorax with perihila r and lower lung predominance. No pneumothorax or definitive left pleural effusion. Cardiomegaly. IMPRESSION: 1. Right subclavian central venous catheter tip at the superior cavoatrial junction. 2. Bilateral airspace opacities, right greater than left which could represent atelectasis or pneumon ia with moderate-sized right pleural effusion. 3. Cardiomegaly. Reviewed, dictated and finalized at location A. IMPRESSION: 1. Right subclavian central venous catheter tip at the superior cavoatrial junc tion. 2. Bilateral airspace opacities, right greater than left which could represent atelectasis or pneumonia with moderate-sized right pleural effusion. 3. Cardiomegaly.
--- NOTE | ~2023-03-27 | XR_ITS ---
EXAMINATION: XR chest 1V portable INDICATION: Congestive heart failure TECHNIQUE: Portable AP chest at 1032 hours COMPARISON: 04/01/2023 FINDINGS: Cardiomegaly is noted. Diffuse opacities persist throughout all lung zones without signific ant change. There is a small right pleural effusion with interval decrease in size. No pneumothorax i s identified. IMPRESSION: 1. Diffuse lung disease, consistent with pulmonary edema and/or pneumonia and/or atelectasis. 2. Cardiomegaly. 3. Small right pleural effusion with decrease in size. Reviewed, dictated and finalized at location A. IMPRESSION: 1. Diffuse lung disease, consistent with pulmonary edema and/or pneumonia and/o r atelectasis. 2. Cardiomegaly. 3. Small right pleural effusion with decrease in size.
--- NOTE | ~2023-03-27 | CT_ITS ---
EXAMINATION: CT abdomen pelvis wo con DATE: 03/27/2023 15:13 INDICATION: Abdominal distention. Constipation. Decreased urination. TECHNIQUE: Computed tomography (CT) of the abdomen and pelvis was performed without intravenous contr ast. Automated exposure control and iterative reconstruction technique were employed. The dose-length product was 1581.20 mGy-cm. COMPARISON: 01/29/2023 FINDINGS: Incompletely visualized small to moderate left and moderate right pleural effusions with complete col lapse of the right lower lobe and dependent compressive atelectasis in the left lower and right middl e lobes. Bilateral small calcified pulmonary nodules along with calcified bilateral hilar and mediast inal lymph nodes consistent with old granulomatous disease. Mild cardiomegaly. No pericardial effusio n. There is diffuse body wall edema at the lower thorax, abdomen and pelvis extending into the visual ized proximal thighs. Small to moderate amount of ascites scattered throughout the abdomen and pelvis . Gallbladder is not visualized and likely surgically absent. Liver, spleen, pancreas, bilateral adre nal glands are normal. Mild bilateral renal atrophy. 3.5 cm exophytic cyst arising from the lower agustina e of the right kidney. There are few scattered colonic diverticula without adjacent from trace strand ing to suggest diverticulitis. No bowel obstruction. Bladder is normal. There is retroperitoneal and mesenteric edema throughout the abdomen and pelvis. Again seen are multiple mildly prominent lymph no karl in the pelvis and bilateral inguinal regions which are comprised primarily of central fatty essie. Partially visualized penile implant. There are bridging osteophytes at multiple levels in the spine, consistent with diffuse idiopathic skeletal hyperostosis (DISH). IMPRESSION: 1. Anasarca with moderate right and [id number] left pleural effusions, small to moderate amoun t of ascites and extensive body wall, retroperitoneal and mesenteric edema. 2. Mild cardiomegaly and mild bilateral renal atrophy. Reviewed, dictated and finalized at location A. IMPRESSION: 1. Anasarca with moderate right and [id number] left pleural effusions, s mall to moderate amount of ascites and extensive body wall, retroperitoneal and mesenteric edema. 2. Mild cardiomegaly and mild bilateral renal atrophy.
--- NOTE | 2023-03-27 14:03 | ECG_ITS ---
Measurements Intervals [place] Rate: 44 P: SD: 0 QRS: 0 QRSD: 87 T: 5 QT: 491 QTc: 421 Interpretive Statements LIKELY SINUS BRADYCARDIA LOW QRS VOLTAGE [QRS DEFLECTION < 0.5/1.0 mV IN LIMB/CHEST LEADS] ANTEROSEPTAL MYOCARDIAL INFARCTION , PROBABLY OLD [40+ ms Q WAVE IN V1-V4] COMPARED TO ECG 03/07/2023 00:45:39 BRADYCARDIA NOW PRESENT Electronically Signed On 03-27-2023 14:43:06 CDT by Clarisa Reese M.D.
--- NOTE | 2023-03-27 14:40 | ED.GENADULT ---
HPI - General Adult General Chief complaint: Unspecified Stated complaint: decreased urination, ams, dizziness Time Seen by Provider: 03/27/23 13:59 History of Present Illness HPI narrative: Patient is a 77-year-old male with a history of CHF, CKD, COPD, hypertension, hyperlipidemia, diabetes presenting with decreased urination and altered mental status. Patient resides in a nursing facility. He has reportedly not urinated or had a bowel movement in several days. He states that he is still eating and drinking normally. He complains of chest pain as well as scrotal pain. States that he feels very swollen. States that the chest pain feels like tightness. Also complaining of lightheadedness. No fevers or chills, headache, numbness or weakness, cough, vomiting, dysuria, hematuria. Complains of diffuse abdominal pain. Related Data Home Medications Medication Instructions Recorded Confirmed carvedilol 12.5 mg tablet (Coreg) 25 mg PO Q12HR 11/27/22 03/27/23 gabapentin 100 mg capsule 100 mg PO BID 11/27/22 03/27/23 pantoprazole 40 mg tablet,delayed 40 mg PO .THREE TIMES WEEKLY 01/13/23 03/27/23 release amlodipine 10 mg tablet 10 mg PO DAILY 02/18/23 03/27/23 insulin glargine 100 unit/mL (3 15 unit subcut DAILY 03/23/23 03/27/23 mL) subcutaneous pen (Lantus Solostar U-100 Insulin) Allergies Allergy/AdvReac Type Severity Reaction Status Date / Time LAUREN Inhibitors Allergy Cough Verified 02/18/23 20:49 enalapril Allergy Cough Verified 02/18/23 20:49 lisinopril Allergy Cough Verified 02/18/23 20:49 quinapril Allergy Cough Verified 02/18/23 20:49 Review of Systems Review of Systems: All systems reviewed & are unremarkable except as noted in HPI and below PMFSH Past Medical History Medical History (Updated 03/27/23 @ 22:41 by Ileana Campuzano PA-C) Arthritis Chronic anemia Chronic kidney disease Chronic obstructive pulmonary disease Depression Diabetic peripheral neuropathy Diastolic congestive heart failure Hypertension Insulin dependent diabetes mellitus Obstructive sleep apnea Surgical History Surgical History History of cholecystectomy History of foot surgery History of penile implant Family History Family History Father Cancer Diabetes mellitus Mother Hyperlipidemia Hypertension Heart attack Sibling Hx of CABG Colon cancer Social History Social History Social History: Surrogate medical decision maker: Palmira Worthington, granddaughter. Code status: Full code. Smoking packs per day: 1 Smoking cigarettes per day: 20.0 Years smoked: 2 Smoking pack-years: 2.00 Smoking status: Former smoker Tobacco type: cigarettes Second hand tobacco smoke exposure: Yes Smoking end date: 08/13/1967 Alcohol intake: former Drinks per week: 1 Alcohol use details: Occasional glass a wine though rare. Substance use: never Substance use type: does not use Lack of Transportation: No Lack of Food: Never True Current Housing: I Have Housing Concerned About Future Housing: No Difficulty Paying Gas/Electric Bills: No Difficulty Paying for Meds: No Currently Unemployed: No Education: High School Diploma/GED Difficulty w/ Childcare or Family Care: No Living arrangements: with family Occupation/Education: retired Additional occupation/education comments: Retired from [employer]. Spiritual care concerns: No Exam Narrative: GENERAL: Chronically ill-appearing man laying in bed in no acute distress, pleasant and cooperative HEAD: Normocephalic, atraumatic. EYES: PERRLA and EOMI. ENT: Nares clear, no rhinorrhea or epistaxis. Mucous membranes moist. NECK: Supple. CHEST: Coarse sounds posteriorly, on baseline 3 L nasal cannula saturating well, no respiratory distress HEART: Regular rat
[2023-03-27] MEDS: MORPHINE SULFATE (*CRX) 2 MG/ML INJ IV PUSH (15:19)
[2023-03-27 16:03] LABS: Basophils Absolute Auto 0.1 K/mm3 (0.0-0.1); Basophils Percent Auto 1.1 % (0.2-1.2); Eosinophils Absolute Auto 0.2 K/mm3 (0-0.3); Hematocrit 27.9 % (42.0-52.0); Hemoglobin 8.5 g/dL (14.0-18.0); Immature Granulocyte Absolute 0.05 K/mm3 (0.00-0.031); Immature Granulocyte Percent A 0.9 % (0-0.5); Lymphocytes Percent Auto 7.5 % (18.3-44.2); Mean Corpuscular HGB Conc 30.5 g/dl (32-36); Mean Corpuscular Hemoglobin 33.5 pg (26-34); Mean Corpuscular Volume 109.8 fl (80-100); Monocytes Absolute Auto 0.4 K/mm3 (0.1-0.6); Monocytes Percent Auto 7.9 % (2.6-8.5); Neutrophils Absolute Auto 4.2 K/mm3 (1.3-6.7); Neutrophils Percent Auto 79.6 % (45.5-73.1); Platelet Count Result 177 k/mm3 (150-375); Red Blood Count 2.54 M/mm3 (4.6-6.20); Red Cell Distribution Width 21.1 % (11.5-14.5); White Blood Count 5.3 K/mm3 (4.5-10.0)
[2023-03-27 16:13] LABS: Appearance Urine Clear (Clear); Bacteria Urine None Seen /hpf; Bilirubin Urine Negative (Negative); Blood Urine Negative (Negative); Color Urine Dark Yellow (Yellow); Glucose Urine UA Negative (Negative); Hyaline Casts Urine Present /lpf; Ketones Urine Negative (Negative); Leukocyte Esterase Ur 1+ LEU/UL (Negative); Nitrate Urine Negative (Negative); Protein Urine 3+ mg/dL (Negative); RBC Urine 0-2 /hpf (0-2); Specific Grav Ur 1.019 (1.001-1.035); Squamous Epithelial Cell Urine Occasional /hpf (Few); Urobilinogen Urine 0.2 mg/dL (<2.0)
[2023-03-27 16:14] LABS: Add Urine Microscopic? YES; INR 1.5; Prothrombin Time 18.5 Seconds (11.1-14.7)
[2023-03-27 16:15] LABS: Lactic Acid Reflex 0.8 mmol/L (0.7-2.0); Partial Thromboplastin Time 40.4 SECONDS (22.3-36.8)
[2023-03-27 16:16] LABS: Alanine Aminotransferase 20 U/L (6-50); Albumin Level 2.8 g/dL (3.5-5.1); Alkaline Phosphatase 96 U/L (38-126); Anion Gap 8 mmol/L (8-16); Aspartate Amino Transferase 22 U/L (17-59); Bilirubin,Total 0.3 mg/dL (0.2-1.3); Blood Urea Nitrogen 97 mg/dL (9-20); Calcium 6.6 mg/dL (8.4-10.2); Carbon Dioxide 20 mmol/L (22-30); Chloride 107 mmol/L (98-107); Estimated CRCL calculation 13 ml/min; Estimated Glomerular Filt Rate 10; Glucose 157 mg/dL (65-110); Lipase 15 U/L (23-300); Magnesium 1.8 mg/dL (1.6-2.3); Potassium 4.8 mmol/L (3.4-5.0); Sodium 135 mmol/L (137-145)
[2023-03-27 16:22] LABS: Platelet Estimate Adequate (Adequate)
[2023-03-27 16:23] LABS: Schistocytes Rare (NORMAL)
[2023-03-27 16:24] LABS: Anisocytosis 3+ (NORMAL); Hypochromasia 1+ (NORMAL); Macrocytosis 1+ (NORMAL)
[2023-03-27 16:25] LABS: Microcytosis 1+ (NORMAL); NT Pro B Type Natriuretic Pept 8090 pg/mL (19.9-100)
[2023-03-27 16:28] LABS: Troponin I < 0.012 ng/mL (0.000-0.034)
[2023-03-27 17:04] LABS: Influenza A QL RT-PCR Negative (Negative); Influenza B QL RT-PCR Negative (Negative); SARS-CoV-2 RNA PCR Negative (Negative)
[2023-03-27] MEDS: MORPHINE SULFATE (*CRX) 2 MG/ML INJ (17:33)
--- NOTE | 2023-03-27 18:32 | PM.IMHP ---
H&P: HPI History of Present Illness Date/Time: 03/27/23 17:30 Chief Complaint: Swelling. Narrative: This is a very pleasant 77-year-old male with hypertension, insulin-dependent diabetes, diastolic congestive heart failure, chronic anemia, chronic kidney disease, and other comorbidities who presented to the emergency department via EMS from [facility] for evaluation of swelling. The patient provides the following history. He is known to myself and the hospitalist service from a recent admission in which he was treated for pneumonia, hyperkalemia, and in acute on chronic kidney injury. He received antibiotics and was seen by a Nephrology for his worsening renal failure. He had significant proteinuria with greater than 4 g out in 24 hours. He is followed by Dr. Chris Ny who according to the patient's felt that the patient's renal function was stable enough that he did not need to see him until June. Unfortunately since his most recent hospitalization he has continued to gain weight and his swelling is now up to his chest. He is having difficulties participating in rehab due to the swelling. He notes a decrease in urine output. He also reports confusion and seeing things in his room that are not there, for instance he saw a basket of tomatoes in his room which were not there. He has been feeling lightheaded and a bit dizzy. On occasion he has mid chest discomfort though he goes on to say that is not necessarily unusual for him. He reports chills but denies fever and sweats. No headache or neck ache. No cold or flu symptoms. He denies cough. Appetite has been okay. No nausea, vomiting, or diarrhea. He has had some abnormal vital signs since arrival including a temperature down to 91?, bradycardia into the 40s, and blood pressures as low as 91/44. Labs were significant for a stable hemoglobin and hematocrit, BUN 97, creatinine 5.70 (baseline creatinine has historically run between 2.0 and 3.0 but has gradually increased over the past 1 month with a discharge creatinine 10 days ago 4.40), proBNP 8090, total protein 6.0, albumin 2.8. 3+ protein was noted in the urine with multiple casts. 300 mL of urine was obtained in the ED on catheterization. CT of the abdomen and pelvis showed anasarca with bilateral pleural effusions, small to moderate amount of ascites, extensive body wall, retroperitoneal, and mesenteric edema with mild cardiomegaly and mild bilateral renal atrophy. He was given 1500 mL LR in the ED as well as 25 g of albumin. He is being admitted in this setting for further treatment and evaluation. On review of his EMR, it looks like he has gained 30 kg in the last 1 month. Review of Systems Review of Systems: Twelve systems were reviewed and are negative except for as per HPI. [facility] Past Medical History Medical History Arthritis Chronic anemia Chronic kidney disease Chronic obstructive pulmonary disease Depression Diabetic peripheral neuropathy Diastolic congestive heart failure Hypertension Insulin dependent diabetes mellitus Obstructive sleep apnea Surgical History Surgical History History of cholecystectomy History of foot surgery History of penile implant Family History Family History Father Cancer Diabetes mellitus Mother Hyperlipidemia Hypertension Heart attack Sibling Hx of CABG Colon cancer Social History Social History Social History: Surrogate medical decision maker: Palmira Worthington, granddaughter. Code status: Full code. Smoking packs per day: 1 Smoking cigarettes per day: 20.0 Years smoked: 2 Smoking pack-years: 2.00 Smoking status: Former smoker Tobacco type: cigarettes Second hand tobacco smoke exposure: Yes Smoking end date: 08/13/1967 Alcohol in
[2023-03-27 19:56] LABS: Troponin I < 0.012 ng/mL (0.000-0.034)
--- NOTE | 2023-03-27 20:24 | ADMGEN ---
This patient, Kenneth Powers, was admitted to IMU Room 231-01. Patient/family oriented to hospital policies and general routines including ID bracelet, bed and alarms, visiting hours, pain management, procedures, bathroom and other care routines, personal items, smoking policy, room service/diet, and visiting hours. Information on how to activate the Rapid Response Team has been discussed. Patient/Family are encouraged to report perceived risks to care and to ask questions if they do not understand what they are told or what they should do.
[2023-03-27] MEDS: ALBUMIN HUMAN 25% 25 GM/100 ML 100 ML IVPB (20:32)
[2023-03-27 23:01] LABS: Troponin I < 0.012 ng/mL (0.000-0.034)
[2023-03-27 23:02] LABS: Glucose Point of Care 156 mg/dl (65-105)
[2023-03-28] VITALS (17 sets, daily range): BP systolic 105–124; BP diastolic 42–86; PULSE 52–57; RESP 12–22; TEMP 35.4–36.4; O2SAT 94–97; BMI 39.0
[2023-03-28 00:56] LABS: Erythrocyte Sedimentation Rate 89 mm/hr (0-20)
[2023-03-28 02:10] LABS: Free T4 Free Thyroxine Reflex 0.93 ng/dL (0.78-2.19)
[2023-03-28 03:04] LABS: Total Triiodothyronine (T3) 0.52 NG/ML (0.97-1.69)
[2023-03-28 04:08] LABS: Hematocrit 28.5 % (42.0-52.0); Hemoglobin 8.8 g/dL (14.0-18.0); Mean Corpuscular HGB Conc 30.9 g/dl (32-36); Mean Corpuscular Hemoglobin 33.3 pg (26-34); Mean Platelet Volume 11.8 fl (7.4-10.4); Platelet Count Result 204 k/mm3 (150-375); Red Blood Count 2.64 M/mm3 (4.6-6.20); Red Cell Distribution Width 20.7 % (11.5-14.5); White Blood Count 5.5 K/mm3 (4.5-10.0)
[2023-03-28 04:24] LABS: Alanine Aminotransferase 19 U/L (6-50); Alkaline Phosphatase 93 U/L (38-126); Anion Gap 8 mmol/L (8-16); Aspartate Amino Transferase 22 U/L (17-59); Bilirubin,Total 0.3 mg/dL (0.2-1.3); Blood Urea Nitrogen 95 mg/dL (9-20); CRP 3.3 mg/dL (<1.0); Calcium 6.8 mg/dL (8.4-10.2); Carbon Dioxide 21 mmol/L (22-30); Chloride 107 mmol/L (98-107); Estimated CRCL calculation 12 ml/min; Estimated Glomerular Filt Rate 9; Glucose 135 mg/dL (65-110); Magnesium 1.7 mg/dL (1.6-2.3); Phosphorus 7.6 mg/dL (2.5-4.5); Sodium 136 mmol/L (137-145)
[2023-03-28 07:38] LABS: Glucose Point of Care 120 mg/dl (65-105)
[2023-03-28] MEDS: SERTRALINE HCL 25 MG TABLET PO (10:16)
[2023-03-28] MEDS: buPROPion HCL 75 MG TABLET PO ×2 (10:16→22:50)
[2023-03-28] MEDS: INSULIN GLARGINE (*BKC) 100 UNITS/ML 15 UNITS SUB-Q (10:16)
--- NOTE | 2023-03-28 10:43 | PM.IMPN ---
Progress Note: A&P Assessment and Plan (1) Acute on chronic kidney failure: Code(s): N17.9 - Acute kidney failure, unspecified; N18.9 - Chronic kidney disease, unspecified Status: Acute Assessment and Plan: Baseline creatinine seems to range between 2.0 and 3.0 however has been worsening over the past 1 month. POA, the creatinine 5.70 compared to a creatinine of 4.40 just 10 days ago. Creatinine level is trending up His urine output has dropped off. Current patient is confused, staring, possible secondary to uremia And patient also has fluid overload Nephrology consulted. Apodaca catheter inserted for strict I/O. Patient needs dialysis, management per weigh box tender (2) Volume overload: Code(s): E87.70 - Fluid overload, unspecified Status: Acute Assessment and Plan: The patient has significant volume overload. He has gained 30 kg in a month. He has severe pitting edema up to the mid chest. CT scan shows anasarca with moderate right and small to moderate left pleural effusions, a small to moderate amount of ascites, and extensive body wall, retroperitoneal, and mesenteric edema. receiving albumin, renal function is worsening Nephrology consulted. (3) Intravascular volume depletion: Code(s): E86.1 - Hypovolemia Status: Acute Assessment and Plan: Blood pressures have been a bit soft and he is likely intravascularly depleted due to all the 3rd spacing. He received 1.5 L of lactated Ringer's in the ED and is getting 25 g IV albumin. No further fluids for now given his extensive edema. (4) Bradycardia: Code(s): R00.1 - Bradycardia, unspecified Status: Acute Assessment and Plan: May very well be due to hypothermia. Currently under a Bettye Hugger. Hold carvedilol. Check TSH though that was normal 2 months ago. Continue to monitor closely on telemetry in IMU. (5) Hypothermia: Code(s): T68.XXXA - Hypothermia, initial encounter Status: Acute Assessment and Plan: He gives no history to suggest underlying infection and not appear septic. May be related to worsening renal function. Currently under a Bettye Hugger. Blood cultures ordered to rule out bacteremia which seems unlikely. Check TSH though that was normal 2 months ago. (6) Diastolic congestive heart failure: Code(s): I50.30 - Unspecified diastolic (congestive) heart failure Status: Acute Assessment and Plan: Echocardiogram last month showed a normal LV systolic function with grade 2 diastolic noncompliance. He has significant volume overload as detailed above which is due to his worsening renal function and some part due to congestive heart failure as well. (7) Chronic anemia: Code(s): D64.9 - Anemia, unspecified Status: Acute Assessment and Plan: Stable on review of previous labs. (8) Hypertension: Qualifiers: Hypertension type: primary hypertension Qualified Code(s): I10 - Essential (primary) hypertension Code(s): I10 - Essential (primary) hypertension Status: Chronic Assessment and Plan: Blood pressures have been intermittently soft and his antihypertensives are currently on hold. (9) Obstructive sleep apnea: Code(s): G47.33 - Obstructive sleep apnea (adult) (pediatric) Status: Acute Assessment and Plan: CPAP will be provided for the patient to use while hospitalized. (10) Insulin dependent diabetes mellitus: Status: Acute Assessment and Plan: Continue basal insulin. Initiate sliding scale insulin, Accu-Cheks, and hypoglycemic protocol. (11) Acute metabolic encephalopathy: Code(s): G93.41 - Metabolic encephalopathy Status: Acute Assessment and Plan: Patient mental status deteriorates quickly, has visual hallucination Likely secondary to uremia Neuro check Urgent dialysis per weigh box tender Subjective Date/time seen:
[2023-03-28 11:37] LABS: Glucose Point of Care 136 mg/dl (65-105)
--- NOTE | 2023-03-28 12:21 | PM.CNNEP ---
Assessment and Plan Assessment and plan (1) VISHNU (acute kidney injury): Code(s): N17.9 - Acute kidney failure, unspecified Status: Acute Assessment and Plan: as noted by trend of labs since admission (and previous admissions/hospitalizations) rather than VISHNU, I suspect this is just progression of his known CKD now complicated by fluid overload/anasarca I suspect he need AUTO REPAIR TECHNICIAN/dialysis at this time I worry that with his advanced CKD at baseline, he may now be dialysis dependent (2) Chronic kidney disease, stage IV (severe): Code(s): N18.4 - Chronic kidney disease, stage 4 (severe) Status: Acute Assessment and Plan: creatinine ~ 4.0 - 4.5mg/dl during last hospitalization -- assumption was this was his new baseline follows with Dr. Davis Ny for CKD management suspect due to HTN, DM, vascular disease, and age-related change (3) Volume overload: Code(s): E87.70 - Fluid overload, unspecified Status: Acute Assessment and Plan: as evidenced by physical exam and imaging studies he has gained almost 60+ pounds since last hospitalization -- presumably all fluid... will start IV albumin chased by IV bumex however, I suspect he will need AUTO REPAIR TECHNICIAN/dialysis for more aggressive fluid removal (4) Diastolic congestive heart failure: Code(s): I50.30 - Unspecified diastolic (congestive) heart failure Status: Acute Assessment and Plan: fluid status worse at this time more so due to renal dysfunction fluid removal (diuretics + dialysis) as tolerated follow cardiac status (5) Anemia: Code(s): D64.9 - Anemia, unspecified Status: Chronic Assessment and Plan: as noted on admission acute on chronic suspect partly related to underlying CKD PRBC transfusion per protocol EPogen with HD when started follow trend of H/H (6) Diabetes mellitus with chronic kidney disease: Code(s): E11.22 - Type 2 diabetes mellitus with diabetic chronic kidney disease Status: Chronic Assessment and Plan: follow accu-cheks glycemic control per hospitalisits Long and lengthy discussion (greater than 20 minutes) with the patient, his , and multiple family members at bedside with regard to his worsening renal dysfunction in association with anasarca/volume overload. Unfortunately, given the severity of his kidney disease, I am not sure if medications alone will be able to optimize his fluid status. Furthermore, along with his significant anasarca/swelling, he has some signs/symptoms that are concerning for possible uremia as noted by his altered mentation and hallucinations at this time. Hence, I think that renal replacement therapy/dialysis is indicated at this time which the patient as well as his family are in agreement with. I discussed with him the nature of renal replacement therapy/dialysis, necessity of placement of a dialysis catheter for dialysis, and ongoing monitoring of his electrolytes, volume status, and clearance in the hopes that this intervention will optimize his overall clinical status. They all appeared to voice understanding and are willing to proceed. I will consult surgery for placement of a tunneled dialysis catheter as I suspect he will need to continue dialysis even on discharge from the hospital. I will continue follow patient with you while remains hospitalized to make further recommendations as needed. Thank you for allowing me to participate in the care of this patient. History of Present Illness Reason for Consult Consult date: 03/28/23 Reason for consult: acute renal failure (on chronic kidney disease versus progression of CKD) Chief Complaint Chief complaint: VISHNU/Volume Overload History of Present Illness Narrative: Most of the information I have obtained is review of the electronic medical record as well as discussion with his family at bedside as well as the physician/nurses involved in the patient's c
--- NOTE | 2023-03-28 12:21 | P.CONNP_ITS ---
Assessment and Plan Assessment and plan (1) VISHNU (acute kidney injury): Code(s): N17.9 - Acute kidney failure, unspecified Status: Acute Assessment and Plan: * as noted by trend of labs since admission (and previous admissions/hospitalizations) * rather than VISHNU, I suspect this is just progression of his known CKD * now complicated by fluid overload/anasarca * I suspect he need ORGAN PIPE MAKER METAL/dialysis at this time * I worry that with his advanced CKD at baseline, he may now be dialysis dependent (2) Chronic kidney disease, stage IV (severe): Code(s): N18.4 - Chronic kidney disease, stage 4 (severe) Status: Acute Assessment and Plan: * creatinine ~ 4.0 - 4.5mg/dl during last hospitalization -- assumption was this was his new baseline * follows with Dr. Davis Ny for CKD management * suspect due to HTN, DM, vascular disease, and age-related change (3) Volume overload: Code(s): E87.70 - Fluid overload, unspecified Status: Acute Assessment and Plan: * as evidenced by physical exam and imaging studies * he has gained almost 60+ pounds since last hospitalization -- presumably all fluid... * will start IV albumin chased by IV bumex * however, I suspect he will need ORGAN PIPE MAKER METAL/dialysis for more aggressive fluid removal (4) Diastolic congestive heart failure: Code(s): I50.30 - Unspecified diastolic (congestive) heart failure Status: Acute Assessment and Plan: * fluid status worse at this time more so due to renal dysfunction * fluid removal (diuretics + dialysis) as tolerated * follow cardiac status (5) Anemia: Code(s): D64.9 - Anemia, unspecified Status: Chronic Assessment and Plan: * as noted on admission * acute on chronic * suspect partly related to underlying CKD * PRBC transfusion per protocol * EPogen with HD when started * follow trend of H/H (6) Diabetes mellitus with chronic kidney disease: Code(s): E11.22 - Type 2 diabetes mellitus with diabetic chronic kidney disease Status: Chronic Assessment and Plan: * follow accu-cheks * glycemic control per hospitalisits Long and lengthy discussion (greater than 20 minutes) with the patient, his , and multiple family members at bedside with regard to his worsening renal dysfunction in association with anasarca/volume overload. Unfortunately, given the severity of his kidney disease, I am not sure if medications alone will be able to optimize his fluid status. Furthermore, along with his significant anasarca/swelling, he has some signs/symptoms that are concerning for possible uremia as noted by his altered mentation and hallucinations at this time. Hence, I think that renal replacement therapy/dialysis is indicated at this time which the patient as well as his family are in agreement with. I discussed with him the nature of renal replacement therapy/dialysis, necessity of placement of a dialysis catheter for dialysis, and ongoing monitoring of his electrolytes, volume status, and clearance in the hopes that this intervention will optimize his overall clinical status. They all appeared to voice understanding and are willing to proceed. I will consult surgery for placement of a tunneled dialysis catheter as I suspect he will need to continue dialysis even on discharge from [facility]. I will continue follow patient with you while remains hospitalized to make further recommendations as needed. Thank you for allowing me to participate in the care of this patient. History of Present Illness Reason for Consult Consult date: 03/28/23
[2023-03-28] MEDS: ALBUMIN HUMAN 25% 12.5 GM/50ML 50 ML IVPB ×2 (14:53→22:51)
[2023-03-28 16:37] LABS: Glucose Point of Care 137 mg/dl (65-105)
[2023-03-28] MEDS: BUMETANIDE INJ 2.5 MG/10 ML VIAL 2 MG IV PUSH ×2 (16:37→22:51)
[2023-03-28 19:49] LABS: Glucose Point of Care 100 mg/dl (65-105)
[2023-03-28] MEDS: rOPINIRole HCL 0.5 MG TABLET PO (22:51)
[2023-03-29] VITALS (28 sets, daily range): BP systolic 104–172; BP diastolic 43–87; PULSE 50–56; RESP 12–22; TEMP 35.8–36.7; O2SAT 92–98
[2023-03-29 04:54] LABS: Basophils Absolute Auto 0.1 K/mm3 (0.0-0.1); Basophils Percent Auto 0.6 % (0.2-1.2); Eosinophils Absolute Auto 0.1 K/mm3 (0-0.3); Eosinophils Percent Auto 0.7 % (0-4.4); Hematocrit 29.5 % (42.0-52.0); Hemoglobin 9.1 g/dL (14.0-18.0); Immature Granulocyte Absolute 0.12 K/mm3 (0.00-0.031); Immature Granulocyte Percent A 0.7 % (0-0.5); Lymphocytes Absolute Auto 0.55 K/mm3 (0.9-3.2); Lymphocytes Percent Auto 3.1 % (18.3-44.2); Mean Corpuscular HGB Conc 30.8 g/dl (32-36); Mean Corpuscular Hemoglobin 33.6 pg (26-34); Mean Corpuscular Volume 108.9 fl (80-100); Mean Platelet Volume 11.6 fl (7.4-10.4); Monocytes Absolute Auto 1.5 K/mm3 (0.1-0.6); Monocytes Percent Auto 8.3 % (2.6-8.5); Neutrophils Absolute Auto 15.1 K/mm3 (1.3-6.7); Neutrophils Percent Auto 86.6 % (45.5-73.1); Nucleated Red Blood Cells Perc 0.1 % (0.0-0.2); Platelet Count Result 230 k/mm3 (150-375); Red Blood Count 2.71 M/mm3 (4.6-6.20); Red Cell Distribution Width 20.9 % (11.5-14.5); White Blood Count 17.5 K/mm3 (4.5-10.0)
[2023-03-29 05:11] LABS: Alanine Aminotransferase 20 U/L (6-50); Albumin Level 3.5 g/dL (3.5-5.1); Alkaline Phosphatase 86 U/L (38-126); Anion Gap 13 mmol/L (8-16); Aspartate Amino Transferase 20 U/L (17-59); Bilirubin,Total 0.3 mg/dL (0.2-1.3); Blood Urea Nitrogen 102 mg/dL (9-20); Calcium 6.6 mg/dL (8.4-10.2); Carbon Dioxide 20 mmol/L (22-30); Chloride 105 mmol/L (98-107); Estimated CRCL calculation 11 ml/min; Estimated Glomerular Filt Rate 8; Glucose 31 mg/dL (65-110); Potassium 5.3 mmol/L (3.4-5.0); Sodium 138 mmol/L (137-145)
[2023-03-29] MEDS: DEXTROSE 50% 25 GM/50 ML SYRINGE IV PUSH ×4 (05:15→08:03)
[2023-03-29 05:27] LABS: Glucose Point of Care 139 mg/dl (65-105)
[2023-03-29 05:42] LABS: Macrocytosis 2+ (NORMAL); Platelet Estimate Adequate (Adequate)
[2023-03-29 05:43] LABS: Anisocytosis 1+ (NORMAL); Burr Cells 1+ (NORMAL); Hepatitis B Surface Antigen Negative (Negative); Schistocytes Rare (NORMAL)
[2023-03-29 05:49] LABS: HAV RESULT Negative (Negative); Hepatitis B Core IgM Result Negative (Negative)
[2023-03-29 06:00] LABS: Hepatitis B Surface Anti Res Negative; Hepatitis C Virus Antibody Negative (Negative)
[2023-03-29 06:05] LABS: Glucose Point of Care 67 mg/dl (65-105)
[2023-03-29 06:25] LABS: Glucose Point of Care 98 mg/dl (65-105)
--- NOTE | 2023-03-29 06:45 | PM.IMPN ---
Subjective Date/time seen: 03/29/23 06:45 Interval history: 03/29: Pt had 2 episodes of hypoglycemia. The first one was 31. D50 was given. Then glucose > 130. Then dropped to 67. Insulin should be held in this pt who cannot excrete insulin due to dialysis dependence. Bumex 2mg iv push does not produce any urine. 4 mg IV push bumex needs to be given. Ca Gluconate needs to be given for hypocalcemia. The pt has not had any dialysis yet. Objective Data Vital Signs Vital Signs: Vital Signs - 24 hr 03/28/23 08:11 03/28/23 08:00 03/28/23 08:00 Temperature 97.5 F L Pulse Rate 56 L 55 L Respiratory Rate 20 Blood Pressure 117/67 Pulse Oximetry 96 96 Oxygen Delivery Nasal Cannula Oxygen Flow Rate 3 03/28/23 10:00 03/28/23 11:42 03/28/23 12:00 Temperature 97.4 F L Pulse Rate 56 L 54 L Respiratory Rate 20 Blood Pressure 119/51 L Pulse Oximetry 97 97 Oxygen Delivery Nasal Cannula Oxygen Flow Rate 3 03/28/23 12:00 03/28/23 15:58 03/28/23 14:00 Temperature 96.4 F L Pulse Rate 55 L 55 L 55 L Respiratory Rate 18 Blood Pressure 105/50 L Pulse Oximetry 94 Oxygen Delivery Oxygen Flow Rate 03/28/23 16:00 03/28/23 18:00 03/28/23 16:00 Temperature Pulse Rate 53 L 52 L Respiratory Rate Blood Pressure Pulse Oximetry 96 Oxygen Delivery Nasal Cannula Oxygen Flow Rate 3 03/28/23 20:00 03/28/23 23:21 03/28/23 20:00 Temperature 96.8 F L 97.5 F L Pulse Rate 52 L 53 L 53 L Respiratory Rate 20 20 20 Blood Pressure 110/42 L 105/86 Pulse Oximetry 97 96 96 Oxygen Delivery Nasal Cannula Oxygen Flow Rate 3 03/29/23 00:00 03/28/23 20:00 03/28/23 22:00 Temperature Pulse Rate 53 L 52 L 53 L Respiratory Rate 20 Blood Pressure Pulse Oximetry 96 Oxygen Delivery Nasal Cannula Oxygen Flow Rate 3 03/29/23 00:00 03/29/23 02:00 03/29/23 04:00 Temperature 96.7 F L Pulse Rate 54 L 55 L 52 L Respiratory Rate 20 Blood Pressure 119/64 Pulse Oximetry 97 Oxygen Delivery Oxygen Flow Rate 03/29/23 04:00 03/29/23 04:00 03/29/23 06:00 Temperature Pulse Rate 52 L 52 L 51 L Respiratory Rate 20 Blood Pressure Pulse Oximetry 97 Oxygen Delivery Nasal Cannula Oxygen Flow Rate 3 Intake/Output Intake/Output: Intake & Output 03/26/23 03/27/23 03/28/23 03/29/23 23:59 23:59 23:59 23:59 Intake Total 100 900 100 Output Total 450 50 Balance 100 450 50 Meds/Results Medications: Active Medications Generic Name Dose Route Start Last Admin Trade Name Freq PRN Reason Stop Dose Admin Bumetanide 2 mg 03/28/23 15:30 03/28/23 22:51 Bumetanide Inj 2.5 Mg/10 Ml Vial IV PUSH 2 mg Q8H LUX Administration Bupropion HCl 75 mg 03/27/23 23:05 03/28/23 22:50 Bupropion Hcl 75 Mg Tablet PO 75 mg Q12HR LUX Administration Dextrose 12.5 gm 03/27/23 22:55 03/29/23 05:47 Dextrose 50% 25 Gm/50 Ml Syringe IV PUSH 12.5 gm PRN PRN Administration Hypoglycemia Protocol Glucagon 1 mg 03/27/23 22:55 Glucagon For Inj 1 Mg Vial IM PRN PRN Hypoglycemia Protocol Glucose 15 gm 03/27/23 22:55 Glucose Oral Gel 15 Gm Of Glucse In 37.5 Gm Tube PO PRN PRN Hypoglycemia Protocol Dextrose 1,000 mls @ 100 mls/hr 03/27/23 22:55 Dextrose 5% 1,000 Ml IVPB PRN PRN Hypoglycemia Protocol Albumin Human 50 mls @ 50 mls/hr 03/28/23 14:00 03/28/23 23:50 Albutein IVPB Infused Q8HR LUX Infusion Insulin Aspart 1 - 3 units 03/28/23 21:00 03/28/23 22:49 Insulin Aspart (*Bkc) 100 Units/Ml SUB-Q Not Given HS [facility] Protocol Insulin Aspart 3 - 6 units 03/28/23 08:00 03/28/23 20:23 Insulin Aspart (*Bkc) 100 Units/Ml SUB-Q Not Given TIDWM [facility] Protocol Ropinirole HCl 0.5 mg 03/27/23 23:05 03/28/23 22:51 Ropinirole Hcl 0.5 Mg Tablet PO 0.5 mg HS LUX Administration Sertraline HCl 25 mg 03/28/23 09:00 03/28
[2023-03-29 07:29] LABS: INR 1.5
[2023-03-29 07:34] LABS: Glucose Point of Care 79 mg/dl (65-105)
[2023-03-29] MEDS: ALBUMIN HUMAN 25% 12.5 GM/50ML 50 ML IVPB (07:45)
[2023-03-29 07:53] LABS: Glucose Point of Care 68 mg/dl (65-105)
[2023-03-29 08:23] LABS: Glucose Point of Care 95 mg/dl (65-105)
--- NOTE | 2023-03-29 09:15 | PM.IMPN ---
Progress Note: A&P Assessment and Plan (1) Acute on chronic kidney failure: Code(s): N17.9 - Acute kidney failure, unspecified; N18.9 - Chronic kidney disease, unspecified Status: Acute Assessment and Plan: Baseline creatinine seems to range between 2.0 and 3.0 however has been worsening over the past 1 month. Creatinine today is 5.70 compared to a creatinine of 4.40 just 10 days ago. His urine output has dropped off. He had 4 g of protein out on 24 hour urine done during his most recent hospitalization. As above, he may be heading towards dialysis to remove this fluid. Nephrology consulted. Apodaca catheter inserted for strict I/O. (2) Volume overload: Code(s): E87.70 - Fluid overload, unspecified Status: Acute Assessment and Plan: The patient has significant volume overload. He has gained 30 kg in a month. He has severe pitting edema up to the mid chest. CT scan shows anasarca with moderate right and small to moderate left pleural effusions, a small to moderate amount of ascites, and extensive body wall, retroperitoneal, and mesenteric edema. Blood pressures were stable on arrival but are now soft and he is unable to be diuresed. Received albumin with Lasix. His renal function is worsening Patient ends up needing dialysis to remove this fluid. Nephrology consulted, appreciate gang leader's consultation (3) Intravascular volume depletion: Code(s): E86.1 - Hypovolemia Status: Acute Assessment and Plan: Blood pressures have been a bit soft and he is likely intravascularly depleted due to all the 3rd spacing. received 1.5 L of lactated Ringer's in the ED and is getting 25 g IV albumin. Hold IV fluid because of fluid overload (4) Bradycardia: Code(s): R00.1 - Bradycardia, unspecified Status: Acute Assessment and Plan: May very well be due to hypothermia and uremia. Hold carvedilol. Check TSH though that was normal 2 months ago. (5) Hypothermia: Code(s): T68.XXXA - Hypothermia, initial encounter Status: Acute Assessment and Plan: need to rule out sepsis Blood culture and urine culture no growth so far (6) Diastolic congestive heart failure: Code(s): I50.30 - Unspecified diastolic (congestive) heart failure Status: Acute Assessment and Plan: Echocardiogram last month showed a normal LV systolic function with grade 2 diastolic noncompliance. He has significant volume overload as detailed above which is due to his worsening renal function and some part due to congestive heart failure as well. (7) Chronic anemia: Code(s): D64.9 - Anemia, unspecified Status: Acute Assessment and Plan: Stable on review of previous labs. (8) Hypertension: Qualifiers: Hypertension type: primary hypertension Qualified Code(s): I10 - Essential (primary) hypertension Code(s): I10 - Essential (primary) hypertension Status: Chronic Assessment and Plan: Blood pressures have been intermittently soft and his antihypertensives are currently on hold. (9) Obstructive sleep apnea: Code(s): G47.33 - Obstructive sleep apnea (adult) (pediatric) Status: Acute Assessment and Plan: CPAP will be provided for the patient to use while hospitalized. (10) Insulin dependent diabetes mellitus: Status: Acute Assessment and Plan: Discontinue basal insulin because of hypoglycemia. Continue sliding scale insulin, Accu-Cheks, and hypoglycemic protocol. (11) Community acquired pneumonia due to Haemophilus influenzae: Code(s): J14 - Pneumonia due to Hemophilus influenzae Status: Acute Assessment and Plan: Chest x-ray and CT scan revealed bilateral reticular opacity and scattered patchy airspace opacity Positive for multifocal pneumonia Patient has a leukocytosis 17,000 Started vancomycin cefepime IV Consult pharmacist for dosing Nasop
[2023-03-29] MEDS: BUMETANIDE INJ 1 MG/4 ML VIAL 4 MG IV PUSH (09:42)
[2023-03-29] MEDS: CALCIUM GLUC 1,000 MG/NS 50 ML 1,000 MG/50 ML BAG 100 MG IVPB (09:43)
[2023-03-29] MEDS: SERTRALINE HCL 25 MG TABLET PO (09:43)
[2023-03-29] MEDS: buPROPion HCL 75 MG TABLET PO ×2 (09:43→21:50)
[2023-03-29] MEDS: CEFEPIME 1 GM/NS 50 ML 1 GM/50 ML BAG IVPB (10:30)
[2023-03-29 10:40] LABS: Glucose Point of Care 81 mg/dl (65-105)
--- NOTE | 2023-03-29 11:07 | WPDCN ---
Assessment and Plan Assessment and plan (1) Acute on chronic kidney failure: Code(s): N17.9 - Acute kidney failure, unspecified; N18.9 - Chronic kidney disease, unspecified Status: Acute Assessment and Plan: Have been asked by the patient's fleet coordinator here [facility] to place a hemodialysis catheter. Initially a request for a tunneled hemodialysis catheter was placed. However on today's labs the patient has a significant up trend in his white blood cell count from 5500 to 52426. With this significant increase in his white blood cell count I am concerned that he may have an undiagnosed or inadequately treated focus of infection. For this reason I would not place a tunneled hemodialysis catheter today but would rather place a non tunneled temporary hemodialysis catheter. I did discuss with the patient risks benefits indications and expected outcomes to include bleeding needing a blood transfusion and iatrogenic pneumothorax yesterday he is agreeable to proceeding with the procedure. (2) Volume overload: Code(s): E87.70 - Fluid overload, unspecified Status: Acute Assessment and Plan: Patient definitely has fluid overload. He would benefit from hemodialysis. We will plan on placing hemodialysis catheter later today. (3) Leukocytosis: Code(s): D72.829 - Elevated white blood cell count, unspecified Status: Acute Assessment and Plan: White blood cell [place] 5500 [place] [address] today. No fever noted. Will need workup to see if he has a focus of untreated infection. [facility] Data of Consult Date/Time: 03/29/23 11:07 Requesting Physician: Nevin Castillo DO Primary Care Provider: Domingo GambinoMD Consult Narrative Reason for consult: Need for hemodialysis access Narrative: Kenneth Powers is a 77 year old male who has had multiple recent admissions here to [facility] for acute on chronic renal injury with volume overload and treatment for pneumonia. His most recent admission was 2 days ago when he was readmitted again for excessive swelling and fluid overload. He has a history of diastolic congestive heart failure as well as hypertension and diabetes. He has a regular fleet coordinator who does not come here to [facility] and he has been seen by Dr. Alvarez who feels that his renal function is worsening and he is starting to have azotemia and is becoming uremic. He has asked me to place a tunneled hemodialysis catheter for long-term hemodialysis access. Yesterday's white blood cell count was normal at 5500 but today is increased to 17,500. His INR which was 1.1 at the beginning when he was admitted has also increased to 1.5 today. He is not on any systemic anticoagulation. Review of Systems Review of Systems: The remainder of the review of systems to include constitutional, HEENT, cardiovascular, respiratory, GI, , integumentary, musculoskeletal, endocrine, immunologic, hematologic, psychiatric, and neurologic are all negative except for which is mentioned above in the HPI. [facility] Past Medical History Medical History Arthritis Chronic anemia Chronic kidney disease Chronic obstructive pulmonary disease Depression Diabetic peripheral neuropathy Diastolic congestive heart failure Hypertension Insulin dependent diabetes mellitus Obstructive sleep apnea Surgical History Surgical History History of cholecystectomy History of foot surgery History of penile implant Family History Family History Father Cancer Diabetes mellitus Mother Hyperlipidemia Hypertension Heart attack Sibling Hx of CABG Colon cancer Social History Social History Social History: Surrogate medical decision maker: Palmira Worthington,
[2023-03-29 11:16] LABS: Glucose Point of Care 76 mg/dl (65-105)
[2023-03-29 12:04] LABS: Iron 68 ug/dL (49-181)
[2023-03-29 12:08] LABS: Glucose Point of Care 83 mg/dl (65-105)
[2023-03-29 12:09] LABS: Vitamin D 25 Hydroxy 24.8 ng/mL
[2023-03-29 12:18] LABS: Percent Iron Saturation 28 % (20-50)
--- NOTE | 2023-03-29 12:28 | WPDHPUPDATE1 ---
History and Physical Update Update Date/Time: 03/29/23 12:28 History and Physical has been reviewed, including an updated exam of the patient. There are NO changes in the patient's condition. Risks, benefits, and alternatives have been discussed and questions answered. Patient agrees to proceed with procedure.
[2023-03-29] MEDS: SODIUM CHLORIDE 0.9% IV 500 ML 30 ML IV CONT (12:30)
--- NOTE | 2023-03-29 12:46 | WPDANESEPPF ---
Anes - Initial Pre Proc Eval Procedure: Operation Date: 03/29/23 13:00 Proposed Procedures p Insertion Иван Catheter - Tono Blanca MD Date/Time: 03/29/23 12:46 Surgeon: Nevin Castillo DO Pre Op Diagnosis: VISHNU/Volume Overload Patient Data Age: 77 Gender: M Height: 1.75 m Weight: 121 kg Last Vital Signs Temp 96.4 F L 03/29/23 12:00 Pulse 51 L 03/29/23 12:00 Resp 16 03/29/23 12:00 BP 135/87 03/29/23 12:00 Pulse Ox 92 03/29/23 12:00 O2 Del Method Nasal Cannula 03/29/23 04:00 O2 Flow Rate 3 03/29/23 04:00 Allergies Allergy/AdvReac Type Severity Reaction Status Date / Time LAUREN Inhibitors Allergy Cough Verified 02/18/23 20:49 enalapril Allergy Cough Verified 02/18/23 20:49 lisinopril Allergy Cough Verified 02/18/23 20:49 quinapril Allergy Cough Verified 02/18/23 20:49 Home Medications Medication Instructions Recorded Confirmed Type aspirin 81 mg chewable tablet 81 mg PO DAILY@0800 #30 tabs 11/22/22 03/27/23 Rx (Children's Aspirin) bupropion HCl 75 mg tablet 75 mg PO Q12HR #60 tabs 11/22/22 03/27/23 Rx calcium carbonate 500 mg-vitamin 1 tablet PO DAILY@0800 #30 tabs 11/22/22 03/27/23 Rx D3 5 mcg (200 unit) tablet (Oyster Shell Calcium-Vitamin D3) ropinirole 0.5 mg tablet 0.5 mg PO HS #30 tabs 11/22/22 03/27/23 Rx sertraline 50 mg tablet (Zoloft) 25 mg PO QAM #30 tabs 11/22/22 03/27/23 Rx carvedilol 12.5 mg tablet (Coreg) 25 mg PO Q12HR 11/27/22 03/27/23 History gabapentin 100 mg capsule 100 mg PO BID 11/27/22 03/27/23 History pantoprazole 40 mg tablet,delayed 40 mg PO .THREE TIMES WEEKLY 01/13/23 03/27/23 History release meclizine 12.5 mg tablet 12.5 mg PO TID PRN dizziness #14 02/12/23 03/27/23 Rx tabs amlodipine 10 mg tablet 10 mg PO DAILY 02/18/23 03/27/23 History insulin lispro 100 unit/mL 8 unit (0.08 mL) subcut TIDWM #10 02/22/23 03/27/23 Rx subcutaneous solution (Humalog mL U-100 Insulin) hydralazine 25 mg tablet 25 mg PO TID #90 tabs 03/04/23 03/27/23 Rx hydrochlorothiazide 25 mg tablet 25 mg PO QAM #30 tabs 03/04/23 03/27/23 Rx insulin glargine 100 unit/mL (3 15 unit subcut DAILY 03/23/23 03/27/23 History mL) subcutaneous pen (Lantus Solostar U-100 Insulin) Laboratory Tests 03/28/23 03/28/23 03/29/23 16:30 19:41 04:48 WBC 17.5 H K/mm3 (4.5-10.0) RBC 2.71 L M/mm3 (4.6-6.20) Hgb 9.1 L g/dL (14.0-18.0) Hct 29.5 L % (42.0-52.0) MCV 108.9 H fl (80-100) MCH 33.6 pg (26-34) MCHC 30.8 L g/dl (32-36) RDW 20.9 H % (11.5-14.5) Plt Count 230 k/mm3 (150-375) MPV 11.6 H fl (7.4-10.4) Immature Gran % (Auto) 0.7 H % (0-0.5) Neut % (Auto) 86.6 H % (45.5-73.1) Lymph % (Auto) 3.1 L % (18.3-44.2) [place] % (Auto) 8.3 % (2.6-8.5) Eos % (Auto) 0.7 % (0-4.4) Baso % (Auto) 0.6 % (0.2-1.2) Lymph # (Auto) 0.55 L K/mm3 (0.9-3.2) [place] # (Auto) 1.5 H K/mm3 (0.1-0.6) Eos # (Auto) 0.1 K/mm3 (0-0.3) Baso # (Auto) 0.1 K/mm3 (0.0-0.1) Abs Immat Gran (auto) 0.12 H K/mm3 (0.00-0.031) Absolute Neuts (auto) 15.1 H K/mm3 (1.3-6.7) Absolute Nucleated RBC 0.0 K/mm3 (0.0-0.012) Nucleated RBC % 0.1 % (0.0-0.2) Platelet Estimate Adequate (Adequate) Anisocytosis 1+ (NORMAL) Macrocytosis 2+ (NORMAL) Angela Cells 1+ (NORMAL) Schistocytes Rare (NORMAL) PT INR Sodium 138 mmol/L (137-145) Potassium 5.3 H mmol/L (3.4-5.0) Chloride 105 mmol/L (98-107) Carbon Dioxide 20 L mmol/L (22-30) Anion Gap 13 mmol/L (8-16) BUN 102 H mg/dL (9-20) Creatinine 6.70 H mg/dL (0.7-1.3) Estim Creat Clear Calc 11 ml/min Estimated G
--- NOTE | 2023-03-29 13:26 | PCOTNOTE ---
Attempted to see pt for OT evaluation however pt is off the floor for a hemodialysis catheter placement. Will continue to follow.
[2023-03-29] MEDS: SODIUM CHLORIDE 0.9% IV 1,000 ML 999 ML IV CONT (13:50)
[2023-03-29 14:27] LABS: Glucose Point of Care 69 mg/dl (65-105)
--- NOTE | 2023-03-29 14:35 | W.PM.PROC2 ---
Procedure Note - Detailed Date of Procedure 03/29/23 Pre-op Diagnosis VISHNU/Volume Overload, Acute on chronic renal failure Post-op Diagnosis Same Procedure Performed Placement of right subclavian vein non tunneled Иван hemodialysis catheter with intraoperative fluoroscopy. Surgeon Tono Blanca MD Functional Tester Type[employer] [facility] Anesthesia MAC Indications Patient is a 77-year-old white male who has acute on chronic renal failure. He has diastolic congestive heart failure and volume overload. He presents now for placement of a non tunneled Иван hemodialysis catheter for urgent dialysis treatment. Findings None significant Description of Procedure After informed consent was obtained patient was brought to the operating room was placed in the supine position and then IV sedation with LMA was administered. The bilateral anterior neck and chest was then prepped and draped in usual sterile fashion. Time-out was then performed correctly identifying the patient as well as procedure to be performed. He was already getting scheduled IV antibiotics. I then placed the patient in the head-down Trendelenburg position. I used 1% lidocaine mixed with 0.5% Marcaine in a 50 50 mixture with some epinephrine injected in around the medial 3rd of the right clavicle. I then proceeded to percutaneously cannulate the right subclavian vein with a long 18gauge needle. I was able to access the vein the 1st pass without any difficulty and there was prompt return of dark venous appearing blood. A guidewire was advanced through the needle into the right subclavian vein subsequently down into the superior vena cava. Intraoperative fluoroscopy was then used to identify the guidewire and its proper position. I then proceeded to enlarge the skin incision at the insertion site of the wire and advanced dilators over the guidewire to enlarge to be not any. Lastly a 16cm non tunneled Иван hemodialysis catheter with an additional 3rd port pigtail catheter was advanced over the guidewire and subsequently into the left subclavian vein and down into the superior vena cava. The guidewire was then removed. Catheter was then secured in place to the skin with 3-0 nylon sutures. I then aspirated all 3 ports in the andrea back blood easily and were flushed easily with easy high flows. Lastly I flushed the port with 5000units of IV heparin. There is then cleaned and then a sterile dressing was applied. The patient tolerated the procedure well no complications. All sponges, needles, and instrument counts were correct at the end procedure. EBL was _30__cc. The patient was awakened and taken to recovery in stable and satisfactory condition. Postprocedure chest x-ray has been performed and the reading is pending at the time this dictation. Implants 16cm non tunneled Иван hemodialysis catheter. Estimated Blood Loss 30 Drains No Packing No Pathology None sent Complications No immediate complications Condition Stable Disposition PACU [facility] Billing Surgery - Charge Forward: Surgery Billing
[2023-03-29 15:25] LABS: Glucose Point of Care 73 mg/dl (65-105)
--- NOTE | 2023-03-29 15:44 | P.PNNP_ITS ---
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 Davis Ny for CKD management * suspect due to HTN, DM, vascular disease, and age-related change (3) Volume overload: Code(s): E87.70 - Fluid overload, unspecified Status: Acute Assessment and Plan: * as evidenced by physical exam and imaging studies * he has gained almost 60+ pounds since last hospitalization -- presumably all fluid... * started IV albumin chased by IV bumex with poor response so will discontinue * push fluid removal with dialysis/ultrafiltration as tolerated by hemodynamics * consider thoracentesis if no improvement in pleural effusions with dialysis (4) Diastolic congestive heart failure: Code(s): I50.30 - Unspecified diastolic (congestive) heart failure Status: Acute Assessment and Plan: * fluid status worse at this time more so due to renal dysfunction * fluid removal with dialysis as tolerated * follow cardiac status (5) Anemia: Code(s): D64.9 - Anemia, unspecified Status: Chronic Assessment and Plan: * as noted on admission * acute on chronic * suspect partly related to underlying CKD * PRBC transfusion per protocol * EPogen with HD when started * follow trend of H/H (6) Diabetes mellitus with chronic kidney disease: Code(s): E11.22 - Type 2 diabetes mellitus with diabetic chronic kidney disease Status: Chronic Assessment and Plan: * follow accu-cheks * glycemic control per hospitalisits Will continue to follow. Subjective Date/time seen: 03/29/23 15:44 Interval history: Follow-up for acute kidney injury on chronic kidney disease versus progression of chronic kidney disease. S/P temporary HD catheter placement earlier this afternoon (had planned tunneled HD catheter but elevated WBC concerning for possible infection) and tolerating dialysis treatment at the time of my visit (seen on HD at 3:38PM); issues with hypoglycemic earlier today as well; seems a bit lethargic currently but is responsive to questions. Exam Narrative: General: ill appearing and elderly male in NAD Heart: normal S1 and S2; no rub Lungs: coarse and decreased at bases Abdomen: soft, nontender, nondistended, positive bowel sounds Extremities: no cyanosis or clubbing; 2 - 3+ edema (feet to mid chest) Skin: warm and dry Objective Data Vital Signs Vital Signs: Vital Signs Temp Pulse Resp BP Pulse Ox O2 Del Method O2 Flow Rate 03/29/23 14:55 50 L 18 127/63 94 Nasal Cannula 4 03/29/23 14:35 55 L 14 127/63 94 Nasal Cannula 4 03/29/23 14:21 97.2 F L 51 L 12 117
--- NOTE | 2023-03-29 15:44 | PM.PNNEP ---
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 Davis Ny for CKD management suspect due to HTN, DM, vascular disease, and age-related change (3) Volume overload: Code(s): E87.70 - Fluid overload, unspecified Status: Acute Assessment and Plan: as evidenced by physical exam and imaging studies he has gained almost 60+ pounds since last hospitalization -- presumably all fluid... started IV albumin chased by IV bumex with poor response so will discontinue push fluid removal with dialysis/ultrafiltration as tolerated by hemodynamics consider thoracentesis if no improvement in pleural effusions with dialysis (4) Diastolic congestive heart failure: Code(s): I50.30 - Unspecified diastolic (congestive) heart failure Status: Acute Assessment and Plan: fluid status worse at this time more so due to renal dysfunction fluid removal with dialysis as tolerated follow cardiac status (5) Anemia: Code(s): D64.9 - Anemia, unspecified Status: Chronic Assessment and Plan: as noted on admission acute on chronic suspect partly related to underlying CKD PRBC transfusion per protocol EPogen with HD when started follow trend of H/H (6) Diabetes mellitus with chronic kidney disease: Code(s): E11.22 - Type 2 diabetes mellitus with diabetic chronic kidney disease Status: Chronic Assessment and Plan: follow accu-cheks glycemic control per hospitalisits Will continue to follow. Subjective Date/time seen: 03/29/23 15:44 Interval history: Follow-up for acute kidney injury on chronic kidney disease versus progression of chronic kidney disease. S/P temporary HD catheter placement earlier this afternoon (had planned tunneled HD catheter but elevated WBC concerning for possible infection) and tolerating dialysis treatment at the time of my visit (seen on HD at 3:38PM); issues with hypoglycemic earlier today as well; seems a bit lethargic currently but is responsive to questions. Exam Narrative: General: ill appearing and elderly male in NAD Heart: normal S1 and S2; no rub Lungs: coarse and decreased at bases Abdomen: soft, nontender, nondistended, positive bowel sounds Extremities: no cyanosis or clubbing; 2 - 3+ edema (feet to mid chest) Skin: warm and dry Objective Data Vital Signs Vital Signs: Vital Signs Temp Pulse Resp BP Pulse Ox O2 Del Method O2 Flow Rate 03/29/23 14:55 50 L 18 127/63 94 Nasal Cannula 4 03/29/23 14:35 55 L 14 127/63 94 Nasal Cannula 4 03/29/23 14:21 97.2 F L 51 L 12 117/60 94 Simple Face Mask 8 03/29/23 13:15 97.0 F L 53 L 20 104/43 L 93 Nasal Cannula 3 03/29/23 08:00 97 Nasal Cannula 3 03/29/23 12:00 96.4 F L 51 L 16 135/87 92 03/29/23 08:00 97.0 F L 50 L 16 105/49 L 93 03/29/23 06:00 51 L 03/29/23 04:00 52 L 20 97 Nasal Cannula 3 03/29/23 04:00 52 L 03/29/23 04:00 96.7 F L 52 L 20 119/64 97 03/29/23 02:00 55 L 03/29/23 00:00 54 L 03/28/23 22:00 53 L 03/28/23 20:00 52 L 03/29/23 00:00 53 L 20 96 Nasal Cannula 3
[2023-03-29] MEDS: EPOETIN ALFA 10,000 UNITS/ML VIAL 10000 UNITS IV PUSH (16:01)
[2023-03-29 17:34] LABS: Glucose Point of Care 88 mg/dl (65-105)
[2023-03-29 18:43] LABS: Glucose Point of Care 86 mg/dl (65-105)
[2023-03-29 20:07] LABS: Glucose Point of Care 136 mg/dl (65-105)
[2023-03-29] MEDS: rOPINIRole HCL 0.5 MG TABLET PO (21:50)
[2023-03-30] VITALS (26 sets, daily range): BP systolic 118–154; BP diastolic 47–81; PULSE 53–78; RESP 16–25; TEMP 35.5–36.7; O2SAT 91–98
[2023-03-30 06:17] LABS: Vancomycin Random 16.6 ug/mL (10-20)
[2023-03-30 06:55] LABS: Albumin Level 2.9 g/dL (3.5-5.1); Anion Gap 10 mmol/L (8-16); Blood Urea Nitrogen 81 mg/dL (9-20); Calcium 6.9 mg/dL (8.4-10.2); Carbon Dioxide 22 mmol/L (22-30); Chloride 103 mmol/L (98-107); Estimated CRCL calculation 13 ml/min; Estimated Glomerular Filt Rate 10; Glucose 117 mg/dL (65-110); Potassium 4.9 mmol/L (3.4-5.0); Sodium 135 mmol/L (137-145)
[2023-03-30 08:08] LABS: Glucose Point of Care 115 mg/dl (65-105)
--- NOTE | 2023-03-30 08:20 | WPDANESPN ---
Anes - Prog Note Post-Op Date/Time: 03/30/23 08:20 Vital Signs: Last Vital Signs Temp 36.3 C L 03/30/23 08:00 Pulse 59 L 03/30/23 08:00 Resp 16 03/30/23 08:00 BP 122/52 L 03/30/23 08:00 Pulse Ox 92 03/30/23 08:00 O2 Del Method Autopap 03/30/23 04:00 O2 Flow Rate 3 03/30/23 00:00 Pain Score (VAS): 0 I/O: Intake & Output 03/29/23 03/30/23 03/30/23 23:59 07:59 15:59 Intake Total 360 Output Total 2120 250 Balance -1760 -250 Laboratory Tests 03/29/23 04:48 03/30/23 05:11 03/29/23 03/29/23 03/29/23 04:48 08:21 09:38 Sodium Potassium Chloride Carbon Dioxide Anion Gap BUN Creatinine Estim Creat Clear Calc Estimated GFR Glucose POC Capillary Glucose 95 81 Calcium Phosphorus Iron 68 TIBC 241 L % Saturation 28 Ferritin 238.00 Albumin Vitamin D 25-Hydroxy 24.8 Random Vancomycin 03/29/23 03/29/23 03/29/23 11:02 12:02 14:25 Sodium Potassium Chloride Carbon Dioxide Anion Gap BUN Creatinine Estim Creat Clear Calc Estimated GFR Glucose POC Capillary Glucose 76 83 69 Calcium Phosphorus Iron TIBC % Saturation Ferritin Albumin Vitamin D 25-Hydroxy Random Vancomycin 03/29/23 03/29/23 03/29/23 15:14 17:12 18:38 Sodium Potassium Chloride Carbon Dioxide Anion Gap BUN Creatinine Estim Creat Clear Calc Estimated GFR Glucose POC Capillary Glucose 73 88 86 Calcium Phosphorus Iron TIBC % Saturation Ferritin Albumin Vitamin D 25-Hydroxy Random Vancomycin 03/29/23 03/30/23 03/30/23 20:00 05:11 05:30 Sodium 135 L Potassium 4.9 Chloride 103 Carbon Dioxide 22 Anion Gap 10 BUN 81 H D Creatinine 5.70 H Estim Creat Clear Calc 13 Estimated GFR 10 L Glucose 117 H POC Capillary Glucose 136 H Calcium 6.9 L Phosphorus 7.0 H Iron TIBC % Saturation Ferritin Albumin 2.9 L Vitamin D 25-Hydroxy Random Vancomycin 16.6 03/30/23 08:04 Sodium Potassium Chloride Carbon Dioxide Anion Gap BUN Creatinine Estim Creat Clear Calc Estimated GFR Glucose POC Capillary Glucose 115 H Calcium Phosphorus Iron TIBC % Saturation Ferritin Albumin Vitamin D 25-Hydroxy Random Vancomycin Patient Feedback: Patient satisfied with anesthetic care.
[2023-03-30] MEDS: EPOETIN ALFA 10,000 UNITS/ML VIAL 10000 UNITS IV PUSH (11:26)
[2023-03-30 11:27] LABS: Glucose Point of Care 119 mg/dl (65-105)
--- NOTE | 2023-03-30 11:40 | PCOTNOTE ---
Attempted to see pt. for occupational therapy evaluation. Pt. is currently away from room for dialysis. Nursing aware. Following.
--- NOTE | 2023-03-30 11:48 | PCPTNOTE ---
Patient off floor at dialysis, will attempt PT eval at later time/date.
--- NOTE | 2023-03-30 12:13 | P.PNNP_ITS ---
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 Davis Ny for CKD management * suspect due to HTN, DM, vascular disease, and age-related change (3) Volume overload: Code(s): E87.70 - Fluid overload, unspecified Status: Acute Assessment and Plan: * as evidenced by physical exam and imaging studies * he has gained almost 60+ pounds since last hospitalization -- presumably all fluid... * started IV albumin chased by IV bumex but with poor response so discontinued * push fluid removal with dialysis/ultrafiltration as tolerated by hemodynamics * consider thoracentesis if no improvement in right pleural effusion with dialysis * check CXR in AM (4) Diastolic congestive heart failure: Code(s): I50.30 - Unspecified diastolic (congestive) heart failure Status: Acute Assessment and Plan: * fluid status worse at this time more so due to renal dysfunction * fluid removal with dialysis as tolerated * follow cardiac status (5) Anemia: Code(s): D64.9 - Anemia, unspecified Status: Chronic Assessment and Plan: * as noted on admission * acute on chronic * suspect partly related to underlying CKD * adequate iron stores by anemia studies * PRBC transfusion per protocol * EPogen with HD * follow trend of H/H (6) Diabetes mellitus with chronic kidney disease: Code(s): E11.22 - Type 2 diabetes mellitus with diabetic chronic kidney disease Status: Chronic Assessment and Plan: * follow accu-cheks * glycemic control per hospitalisits Will continue to follow. Subjective Date/time seen: 03/30/23 12:13 Interval history: Follow-up for acute kidney injury on chronic kidney disease versus progression of chronic kidney disease. Tolerated hemodialysis treatment yesterday afternoon and tolerating dialysis pooja atment at the the time of my visit (seen on HD at ~ 12:00PM); still a bit confused but able to answer questions; respiratory status seems better as well as fluid status/edema; no apparent distress noted. Exam Narrative: General: ill appearing and elderly male in NAD Heart: normal S1 and S2; no rub Lungs: coarse and decreased at bases Abdomen: soft, nontender, nondistended, positive bowel sounds Extremities: no cyanosis or clubbing; 2 - 3+ edema (feet to mid chest) Skin: warm and intact Objective Data Vital Signs Vital Signs: Vital Signs Temp Pulse Resp BP Pulse Ox O2 Del Method O2 Flow Rate 03/30/23 09:20 97.5 F L 60 18 120/59 L 03/30/23 09:20 3 03/30/23 08:00 61 03/30/23 08:00 97.4 F L
--- NOTE | 2023-03-30 12:13 | PM.PNNEP ---
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 Davis Ny for CKD management suspect due to HTN, DM, vascular disease, and age-related change (3) Volume overload: Code(s): E87.70 - Fluid overload, unspecified Status: Acute Assessment and Plan: as evidenced by physical exam and imaging studies he has gained almost 60+ pounds since last hospitalization -- presumably all fluid... started IV albumin chased by IV bumex but with poor response so discontinued push fluid removal with dialysis/ultrafiltration as tolerated by hemodynamics consider thoracentesis if no improvement in right pleural effusion with dialysis check CXR in AM (4) Diastolic congestive heart failure: Code(s): I50.30 - Unspecified diastolic (congestive) heart failure Status: Acute Assessment and Plan: fluid status worse at this time more so due to renal dysfunction fluid removal with dialysis as tolerated follow cardiac status (5) Anemia: Code(s): D64.9 - Anemia, unspecified Status: Chronic Assessment and Plan: as noted on admission acute on chronic suspect partly related to underlying CKD adequate iron stores by anemia studies PRBC transfusion per protocol EPogen with HD follow trend of H/H (6) Diabetes mellitus with chronic kidney disease: Code(s): E11.22 - Type 2 diabetes mellitus with diabetic chronic kidney disease Status: Chronic Assessment and Plan: follow accu-cheks glycemic control per hospitalisits Will continue to follow. Subjective Date/time seen: 03/30/23 12:13 Interval history: Follow-up for acute kidney injury on chronic kidney disease versus progression of chronic kidney disease. Tolerated hemodialysis treatment yesterday afternoon and tolerating dialysis treatment at the the time of my visit (seen on HD at ~ 12:00PM); still a bit confused but able to answer questions; respiratory status seems better as well as fluid status/edema; no apparent distress noted. Exam Narrative: General: ill appearing and elderly male in NAD Heart: normal S1 and S2; no rub Lungs: coarse and decreased at bases Abdomen: soft, nontender, nondistended, positive bowel sounds Extremities: no cyanosis or clubbing; 2 - 3+ edema (feet to mid chest) Skin: warm and intact Objective Data Vital Signs Vital Signs: Vital Signs Temp Pulse Resp BP Pulse Ox O2 Del Method O2 Flow Rate 03/30/23 09:20 97.5 F L 60 18 120/59 L 03/30/23 09:20 3 03/30/23 08:00 61 03/30/23 08:00 97.4 F L 59 L 16 122/52 L 92 03/30/23 06:00 55 L 03/30/23 04:00 55 L 22 H 96 Autopap 03/30/23 04:00 55 L 03/30/23 02:00 57 L 03/30/23 04:00 97.7 F 55 L 22 H 125/48 L 96 03/30/23 00:54 56 L 16 95 Autopap 03/29/23 20:00 56 L 03/30/23 00:00 55 L 03/30/23 00:00 53 L 22 H 98 Nasal Cannula 3 03/29/23 23:38 97.7 F 53 L 22 H 131/51 L 98 03/29/23 22:00 55 L 03/29/23 20:00 56 L 20 98 Nasal Cannula 3 03/29/23 21:14 97.8 F 56 L 20 122/48 L 98 03/29/23 18:46 96.8 F L 55 L 20 120/45 L 95
--- NOTE | 2023-03-30 14:09 | PM.IMPN ---
Progress Note: A&P Assessment and Plan (1) Acute on chronic kidney failure: Code(s): N17.9 - Acute kidney failure, unspecified; N18.9 - Chronic kidney disease, unspecified Status: Acute Assessment and Plan: Baseline creatinine seems to range between 2.0 and 3.0 however has been worsening over the past 1 month. Creatinine today is 5.70 compared to a creatinine of 4.40 just 10 days ago. His urine output has dropped off. He had 4 g of protein out on 24 hour urine done during his most recent hospitalization. As above, he may be heading towards dialysis to remove this fluid. Nephrology consulted. Ap[place]aca catheter inserted for strict I/O. (2) Volume overload: Code(s): E87.70 - Fluid overload, unspecified Status: Acute Assessment and Plan: The patient has significant volume overload. He has gained 30 kg in a month. He has severe pitting edema up to the mid chest. CT scan shows anasarca with moderate right and small to moderate left pleural effusions, a small to moderate amount of ascites, and extensive body wall, retroperitoneal, and mesenteric edema. Blood pressures were stable on arrival but are now soft and he is unable to be diuresed. Received albumin with Lasix. His renal function is worsening Patient ends up needing dialysis to remove this fluid. Nephrology consulted, appreciate janitorial account manager's consultation Patient underwent status is yesterday, 2 L fluid was removed. Today patient is on dialysis again (3) Bradycardia: Code(s): R00.1 - Bradycardia, unspecified Status: Acute Assessment and Plan: May very well be due to hypothermia and uremia. Hold carvedilol. Check TSH though that was normal 2 months ago. (4) Hypothermia: Code(s): T68.XXXA - Hypothermia, initial encounter Status: Acute Assessment and Plan: need to rule out sepsis Blood culture and urine culture no growth so far (5) Diastolic congestive heart failure: Code(s): I50.30 - Unspecified diastolic (congestive) heart failure Status: Acute Assessment and Plan: Echocardiogram last month showed a normal LV systolic function with grade 2 diastolic noncompliance. He has significant volume overload as detailed above which is due to his worsening renal function and some part due to congestive heart failure as well. (6) Chronic anemia: Code(s): D64.9 - Anemia, unspecified Status: Acute Assessment and Plan: Stable on review of previous labs. (7) Hypertension: Qualifiers: Hypertension type: primary hypertension Qualified Code(s): I10 - Essential (primary) hypertension Code(s): I10 - Essential (primary) hypertension Status: Chronic Assessment and Plan: Blood pressures have been intermittently soft and his antihypertensives are currently on hold. (8) Obstructive sleep apnea: Code(s): G47.33 - Obstructive sleep apnea (adult) (pediatric) Status: Acute Assessment and Plan: CPAP will be provided for the patient to use while hospitalized. (9) Insulin dependent diabetes mellitus: Status: Acute Assessment and Plan: Discontinue basal insulin because of hypoglycemia. Continue sliding scale insulin, Accu-Cheks, and hypoglycemic protocol. (10) Community acquired pneumonia due to Haemophilus influenzae: Code(s): J14 - Pneumonia due to Hemophilus influenzae Status: Acute Assessment and Plan: Chest x-ray and CT scan revealed bilateral reticular opacity and scattered patchy airspace opacity Positive for multifocal pneumonia Patient has a leukocytosis 17,000 Started vancomycin cefepime IV Consult pharmacist for dosing Nasopharynx positive of MRSA March 08, 2023 fu CBC and procalcitonin (11) Complicated UTI (urinary tract infection): Code(s): N39.0 - Urinary tract infection, site not specified Status: Acute Assessment and Plan: Urinalysis shows white blood
[2023-03-30 15:54] LABS: Basophils Absolute Auto 0.1 K/mm3 (0.0-0.1); Basophils Percent Auto 1.5 % (0.2-1.2); Eosinophils Absolute Auto 0.3 K/mm3 (0-0.3); Hematocrit 29.4 % (42.0-52.0); Hemoglobin 9.1 g/dL (14.0-18.0); Immature Granulocyte Absolute 0.06 K/mm3 (0.00-0.031); Immature Granulocyte Percent A 0.8 % (0-0.5); Lymphocytes Absolute Auto 0.36 K/mm3 (0.9-3.2); Lymphocytes Percent Auto 4.6 % (18.3-44.2); Mean Corpuscular Hemoglobin 33.6 pg (26-34); Mean Corpuscular Volume 108.5 fl (80-100); Monocytes Absolute Auto 0.6 K/mm3 (0.1-0.6); Monocytes Percent Auto 7.9 % (2.6-8.5); Neutrophils Absolute Auto 6.3 K/mm3 (1.3-6.7); Neutrophils Percent Auto 81.2 % (45.5-73.1); Nucleated Red Blood Cells Perc 0.4 % (0.0-0.2); Platelet Count Result 207 k/mm3 (150-375); Red Blood Count 2.71 M/mm3 (4.6-6.20); White Blood Count 7.8 K/mm3 (4.5-10.0)
[2023-03-30] MEDS: CEFEPIME 1 GM/NS 50 ML 1 GM/50 ML BAG IVPB (16:00)
[2023-03-30 16:30] LABS: Anisocytosis 2+ (NORMAL); Hypochromasia 1+ (NORMAL); Macrocytosis 1+ (NORMAL); Platelet Estimate Adequate (Adequate)
[2023-03-30 16:31] LABS: Burr Cells 1+ (NORMAL); Schistocytes None Seen (NORMAL)
[2023-03-30] MEDS: VANCOMYCIN 1,000 MG/NS 250 ML BAG 250 MG IVPB (16:55)
[2023-03-30 17:04] LABS: Glucose Point of Care 144 mg/dl (65-105)
[2023-03-30] MEDS: buPROPion HCL 75 MG TABLET PO (20:44)
[2023-03-30] MEDS: rOPINIRole HCL 0.5 MG TABLET PO (20:45)
[2023-03-30 20:58] LABS: Glucose Point of Care 169 mg/dl (65-105)
[2023-03-31] VITALS (24 sets, daily range): BP systolic 136–181; BP diastolic 66–85; PULSE 73–89; RESP 17–24; TEMP 36–37.6; O2SAT 94–96; BMI 10.0
[2023-03-31 05:10] LABS: Basophils Absolute Auto 0.1 K/mm3 (0.0-0.1); Basophils Percent Auto 1.2 % (0.2-1.2); Eosinophils Absolute Auto 0.3 K/mm3 (0-0.3); Eosinophils Percent Auto 3.7 % (0-4.4); Hematocrit 28.7 % (42.0-52.0); Immature Granulocyte Absolute 0.07 K/mm3 (0.00-0.031); Immature Granulocyte Percent A 0.9 % (0-0.5); Lymphocytes Absolute Auto 0.65 K/mm3 (0.9-3.2); Mean Corpuscular HGB Conc 31.4 g/dl (32-36); Mean Corpuscular Hemoglobin 33.3 pg (26-34); Mean Corpuscular Volume 106.3 fl (80-100); Mean Platelet Volume 11.3 fl (7.4-10.4); Monocytes Absolute Auto 0.9 K/mm3 (0.1-0.6); Monocytes Percent Auto 11.1 % (2.6-8.5); Neutrophils Absolute Auto 6.1 K/mm3 (1.3-6.7); Neutrophils Percent Auto 75.1 % (45.5-73.1); Nucleated Red Blood Cells Perc 0.5 % (0.0-0.2); Platelet Count Result 198 k/mm3 (150-375); Red Cell Distribution Width 20.7 % (11.5-14.5); White Blood Count 8.1 K/mm3 (4.5-10.0)
[2023-03-31 05:23] LABS: Alanine Aminotransferase 20 U/L (6-50); Albumin Level 3.2 g/dL (3.5-5.1); Alkaline Phosphatase 108 U/L (38-126); Anion Gap 11 mmol/L (8-16); Aspartate Amino Transferase 25 U/L (17-59); Bilirubin,Total 0.6 mg/dL (0.2-1.3); Blood Urea Nitrogen 60 mg/dL (9-20); Calcium 7.4 mg/dL (8.4-10.2); Carbon Dioxide 25 mmol/L (22-30); Chloride 102 mmol/L (98-107); Estimated CRCL calculation 17 ml/min; Estimated Glomerular Filt Rate 13; Glucose 165 mg/dL (65-110); Phosphorus 5.3 mg/dL (2.5-4.5); Potassium 4.5 mmol/L (3.4-5.0); Sodium 138 mmol/L (137-145)
[2023-03-31 05:43] LABS: Anisocytosis 1+ (NORMAL); Platelet Estimate Adequate (Adequate); Schistocytes Rare (NORMAL)
[2023-03-31] MEDS: buPROPion HCL 75 MG TABLET PO ×2 (09:16→22:10)
[2023-03-31] MEDS: SERTRALINE HCL 25 MG TABLET PO (09:17)
[2023-03-31] MEDS: CEFEPIME 1 GM/NS 50 ML 1 GM/50 ML BAG IVPB (09:17)
--- NOTE | 2023-03-31 11:03 | PCPTNOTE ---
Patient out of room at 1100 will attempt to evaluate the patient later.
[2023-03-31] MEDS: EPOETIN ALFA 10,000 UNITS/ML VIAL 10000 UNITS IV PUSH (13:27)
--- NOTE | 2023-03-31 13:57 | P.PNNP_ITS ---
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 * Will continue to remove fluid as tolerated. * plan HD again on Sunday. (2) Chronic kidney disease, stage IV (severe): Code(s): N18.4 - Chronic kidney disease, stage 4 (severe) Status: Acute Assessment and Plan: * creatinine ~ 4.0 - 4.5mg/dl during last hospitalization -- assumption was this was his new baseline * follows with Dr. Davis Ny for CKD management * suspect due to HTN, DM, vascular disease, and age-related change (3) Volume overload: Code(s): E87.70 - Fluid overload, unspecified Status: Acute Assessment and Plan: * as evidenced by physical exam and imaging studies * he has gained almost 60+ pounds since last hospitalization -- presumably all fluid... * started IV albumin chased by IV bumex but with poor response so discontinued * Going for more fluid removal on dialysis today. * Chest x-ray from 2 days ago still shows some volume overload. (4) Diastolic congestive heart failure: Code(s): I50.30 - Unspecified diastolic (congestive) heart failure Status: Acute Assessment and Plan: * fluid status worse at this time more so due to renal dysfunction * fluid removal with dialysis as tolerated * No chest pain. Still some swelling and shortness of breath (5) Anemia: Code(s): D64.9 - Anemia, unspecified Status: Chronic Assessment and Plan: * as noted on admission * acute on chronic * suspect partly related to underlying CKD * adequate iron stores by anemia studies * On antibiotics so we could not use iron at this point anyway. * PRBC transfusion per protocol * EPogen with HD * Hemoglobin stable in the 9s. (6) Diabetes mellitus with chronic kidney disease: Code(s): E11.22 - Type 2 diabetes mellitus with diabetic chronic kidney disease Status: Chronic Assessment and Plan: * follow accu-cheks * glycemic control per hospitalisits Subjective Date/time seen: 03/31/23 13:57 Interval history: Patient is confused. He is on dialysis and tolerating it well. Blood pressure is doing well. We are removing some fluid. He was seen at 12:45 p.m. Exam Narrative: General: ill appearing and elderly male in NAD Heart: normal S1 and S2; no rub or gallop Lungs: coarse and decreased at bases Abdomen: soft, nontender, nondistended, positive bowel sounds Extremities: no cyanosis or clubbing; 2 - 3+ edema (feet to mid chest) Skin: No rash Objective Data Vital Signs Vital Signs: Vital Signs - 24 hr 03/30/23 16:00 03/30/23 16:00 03/30/23 14:00 Temperature 97.4 F L Pulse Rate 78 74 72 Respiratory Rate 20 Blood Pressure 139/63 Pulse Oximetry 94 Oxygen Delivery Oxygen Flow Rate Fraction of Inspired Oxygen 03/30/23 18:00 03/30/23 16:00 03/30/23 20:00 Temperature 97.6 F Pulse Rate 75 73 Respiratory Rate 20 Blood Pressure 149/50 H Pulse Oximetr
--- NOTE | 2023-03-31 13:57 | PM.PNNEP ---
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 Will continue to remove fluid as tolerated. plan HD again on Sunday. (2) Chronic kidney disease, stage IV (severe): Code(s): N18.4 - Chronic kidney disease, stage 4 (severe) Status: Acute Assessment and Plan: creatinine ~ 4.0 - 4.5mg/dl during last hospitalization -- assumption was this was his new baseline follows with Dr. Davis Ny for CKD management suspect due to HTN, DM, vascular disease, and age-related change (3) Volume overload: Code(s): E87.70 - Fluid overload, unspecified Status: Acute Assessment and Plan: as evidenced by physical exam and imaging studies he has gained almost 60+ pounds since last hospitalization -- presumably all fluid... started IV albumin chased by IV bumex but with poor response so discontinued Going for more fluid removal on dialysis today. Chest x-ray from 2 days ago still shows some volume overload. (4) Diastolic congestive heart failure: Code(s): I50.30 - Unspecified diastolic (congestive) heart failure Status: Acute Assessment and Plan: fluid status worse at this time more so due to renal dysfunction fluid removal with dialysis as tolerated No chest pain. Still some swelling and shortness of breath (5) Anemia: Code(s): D64.9 - Anemia, unspecified Status: Chronic Assessment and Plan: as noted on admission acute on chronic suspect partly related to underlying CKD adequate iron stores by anemia studies On antibiotics so we could not use iron at this point anyway. PRBC transfusion per protocol EPogen with HD Hemoglobin stable in the 9s. (6) Diabetes mellitus with chronic kidney disease: Code(s): E11.22 - Type 2 diabetes mellitus with diabetic chronic kidney disease Status: Chronic Assessment and Plan: follow accu-cheks glycemic control per hospitalisits Subjective Date/time seen: 03/31/23 13:57 Interval history: Patient is confused. He is on dialysis and tolerating it well. Blood pressure is doing well. We are removing some fluid. He was seen at 12:45 p.m. Exam Narrative: General: ill appearing and elderly male in NAD Heart: normal S1 and S2; no rub or gallop Lungs: coarse and decreased at bases Abdomen: soft, nontender, nondistended, positive bowel sounds Extremities: no cyanosis or clubbing; 2 - 3+ edema (feet to mid chest) Skin: No rash Objective Data Vital Signs Vital Signs: Vital Signs - 24 hr 03/30/23 16:00 03/30/23 16:00 03/30/23 14:00 Temperature 97.4 F L Pulse Rate 78 74 72 Respiratory Rate 20 Blood Pressure 139/63 Pulse Oximetry 94 Oxygen Delivery Oxygen Flow Rate Fraction of Inspired Oxygen 03/30/23 18:00 03/30/23 16:00 03/30/23 20:00 Temperature 97.6 F Pulse Rate 75 73 Respiratory Rate 20 Blood Pressure 149/50 H Pulse Oximetry 96 Oxygen Delivery Room Air Oxygen Flow Rate Fraction of Inspired Oxygen 03/30/23 22:39 03/30/23 22:00 03/30/23 23:31 Temperature 98.1 F Pulse Rate 77 77 77 Respiratory Rate 25 H 17 22 H Blood Pressure 146/81 H Pulse Oximetry 95 91 93 Oxygen Delivery CPAP Nasal Cannula Oxygen Flow Rate 5 Fraction of Inspired Oxygen 40 03/30/23 20:00 03/30/23 20:00 03/30/23 22:00 Temperature Pulse Rate 75 75 77 Respiratory Rate 22 H Blood Pressure Pulse Oximetry 93 Oxygen Delivery Room Air Oxygen Flow Rate Fraction of Inspired Oxygen 03/31/23 00:00 03/31/23 00:00 03/31/23 02:00 Temperature Pulse Rate 77 77
--- NOTE | 2023-03-31 14:24 | PCPTNOTE ---
Patient still out of room at 1400. Will attempt evaluation tomorrow.
--- NOTE | 2023-03-31 16:05 | PM.IMHP ---
H&P: HPI History of Present Illness Date/Time: 03/31/23 16:05 Review of Systems Review of Systems: Twelve systems were reviewed and are negative except for as per HPI. [facility] Past Medical History Medical History Arthritis Chronic anemia Chronic kidney disease Chronic obstructive pulmonary disease Depression Diabetic peripheral neuropathy Diastolic congestive heart failure Hypertension Insulin dependent diabetes mellitus Obstructive sleep apnea Surgical History Surgical History History of cholecystectomy History of foot surgery History of penile implant Family History Family History Father Cancer Diabetes mellitus Mother Hyperlipidemia Hypertension Heart attack Sibling Hx of CABG Colon cancer Social History Social History Social History: Surrogate medical decision maker: Palmira Worthington, granddaughter. Code status: Full code. Smoking packs per day: 1 Smoking cigarettes per day: 20.0 Years smoked: 2 Smoking pack-years: 2.00 Smoking status: Former smoker Tobacco type: cigarettes Second hand tobacco smoke exposure: Yes Smoking end date: 08/13/1967 Alcohol intake: former Drinks per week: 1 Alcohol use details: Occasional glass a wine though rare. Substance use: never Substance use type: does not use Lack of Transportation: No Lack of Food: Never True Current Housing: I Have Housing Concerned About Future Housing: No Difficulty Paying Gas/Electric Bills: No Difficulty Paying for Meds: No Currently Unemployed: No Education: High School Diploma/GED Difficulty w/ Childcare or Family Care: No Living arrangements: with family Occupation/Education: retired Additional occupation/education comments: Retired from [employer]. Spiritual care concerns: No Meds Home Medications and Allergies Home Medications Medication Instructions Recorded Confirmed Type aspirin 81 mg chewable tablet 81 mg PO DAILY@0800 #30 tabs 11/22/22 03/29/23 Rx (Children's Aspirin) bupropion HCl 75 mg tablet 75 mg PO Q12HR #60 tabs 11/22/22 03/29/23 Rx calcium carbonate 500 mg-vitamin 1 tablet PO DAILY@0800 #30 tabs 11/22/22 03/29/23 Rx D3 5 mcg (200 unit) tablet (Oyster Shell Calcium-Vitamin D3) ropinirole 0.5 mg tablet 0.5 mg PO HS #30 tabs 11/22/22 03/29/23 Rx sertraline 50 mg tablet (Zoloft) 25 mg PO QAM #30 tabs 11/22/22 03/29/23 Rx carvedilol 12.5 mg tablet (Coreg) 25 mg PO Q12HR 11/27/22 03/29/23 History gabapentin 100 mg capsule 100 mg PO BID 11/27/22 03/29/23 History pantoprazole 40 mg tablet,delayed 40 mg PO .THREE TIMES WEEKLY 01/13/23 03/29/23 History release meclizine 12.5 mg tablet 12.5 mg PO TID PRN dizziness #14 02/12/23 03/29/23 Rx tabs amlodipine 10 mg tablet 10 mg PO DAILY 02/18/23 03/29/23 History insulin lispro 100 unit/mL 8 unit (0.08 mL) subcut TIDWM #10 02/22/23 03/29/23 Rx subcutaneous solution (Humalog mL U-100 Insulin) hydralazine 25 mg tablet 25 mg PO TID #90 tabs 03/04/23 03/29/23 Rx hydrochlorothiazide 25 mg tablet 25 mg PO QAM #30 tabs 03/04/23 03/29/23 Rx insulin glargine 100 unit/mL (3 15 unit subcut DAILY 03/23/23 03/29/23 History mL) subcutaneous pen (Lantus Solostar U-100 Insulin) Allergies Allergy/AdvReac Type Severity Reaction Status Date / Time LAUREN Inhibitors Allergy Cough Verified 02/18/23 20:49 enalapril Allergy Cough Verified 02/18/23 20:49 lisinopril Allergy Cough Verified 02/18/23 20:49 quinapril Allergy Cough Verified 02/18/23 20:49 Vital Signs Vital Signs - 24 hr 03/30/23 18:00 03/30/23 20:00 03/30/23 22:39 Temperature 97.6 F Pulse Rate 75 73 77 Respiratory Rate 20 25 H Blood Pressure 149/50 H Pulse Oximetry 96 95 Oxygen Delivery CPAP Oxygen Flow Rate
--- NOTE | 2023-03-31 16:07 | PM.IMPN ---
Progress Note: A&P Assessment and Plan (1) Acute on chronic kidney failure: Code(s): N17.9 - Acute kidney failure, unspecified; N18.9 - Chronic kidney disease, unspecified Status: Acute (2) Volume overload: Code(s): E87.70 - Fluid overload, unspecified Status: Acute (3) Bradycardia: Code(s): R00.1 - Bradycardia, unspecified Status: Acute (4) Hypothermia: Code(s): T68.XXXA - Hypothermia, initial encounter Status: Acute (5) Diastolic congestive heart failure: Code(s): I50.30 - Unspecified diastolic (congestive) heart failure Status: Acute (6) Chronic anemia: Code(s): D64.9 - Anemia, unspecified Status: Acute (7) Hypertension: Qualifiers: Hypertension type: primary hypertension Qualified Code(s): I10 - Essential (primary) hypertension Code(s): I10 - Essential (primary) hypertension Status: Chronic (8) Obstructive sleep apnea: Code(s): G47.33 - Obstructive sleep apnea (adult) (pediatric) Status: Acute (9) Insulin dependent diabetes mellitus: Status: Acute (10) Community acquired pneumonia due to Haemophilus influenzae: Code(s): J14 - Pneumonia due to Hemophilus influenzae Status: Acute (11) Complicated UTI (urinary tract infection): Code(s): N39.0 - Urinary tract infection, site not specified Status: Acute Plan (1) Acute on chronic kidney failure: ?Code(s): N17.9 - Acute kidney failure, unspecified; N18.9 - Chronic kidney disease, unspecified ?Status:?Acute ?Assessment and Plan: Baseline creatinine seems to range between 2.0 and 3.0 however has been worsening over the past 1 month. Creatinine today is 5.70 compared to a creatinine of 4.40 just 10 days ago. His urine output has dropped off. He had 4 g of protein out on 24 hour urine done during his most recent hospitalization. As above, he may be heading towards dialysis to remove this fluid. Nephrology consulted. Apodaca catheter inserted for strict I/O. Food Service Attendant considers progression of CKD (2) Volume overload: ?Code(s): E87.70 - Fluid overload, unspecified ?Status:?Acute ?Assessment and Plan: The patient has significant volume overload.?He has gained 30 kg in a month.?He has severe pitting edema up to the mid chest. CT scan shows anasarca with moderate right and small to moderate left pleural effusions, a small to moderate amount of ascites, and extensive body wall, retroperitoneal, and mesenteric edema. Blood pressures were stable on arrival but are now soft and he is unable to be diuresed. Received albumin with Lasix. His renal function is worsening Patient ends up needing dialysis to remove this fluid. Nephrology consulted, appreciate validation software facilitator's consultation Patient underwent hemodialysis in past 2 days, 2>2.5 L fluid was removed.? Today patient is on dialysis again pass removed 3.5 Approach to euvolemia Edema is improving (3) Bradycardia: ?Code(s): R00.1 - Bradycardia, unspecified ?Status:?Acute ?Assessment and Plan: May very well be due to hypothermia and uremia. Hold carvedilol. Check TSH though that was normal 2 months ago. (4) Hypothermia: ?Code(s): T68.XXXA - Hypothermia, initial encounter ?Status:?Acute ?Assessment and Plan: need to rule out sepsis Blood culture and urine culture no growth so far (5) Diastolic congestive heart failure: ?Code(s): I50.30 - Unspecified diastolic (congestive) heart failure ?Status:?Acute ?Assessment and Plan: Echocardiogram last month showed a normal LV systolic function with grade 2 diastolic noncompliance. He has significant volume overload as detailed above which is due to his worsening renal function and some part due to congestive heart failure as well. (6) Chronic anemia: ?Code(s): D64.9 - Anemia, unspecified ?Status:?Acute ?Assessment and Plan: Stable on review of previous
[2023-03-31 18:06] LABS: Basophils Absolute Auto 0.1 K/mm3 (0.0-0.1); Basophils Percent Auto 1.3 % (0.2-1.2); Eosinophils Absolute Auto 0.3 K/mm3 (0-0.3); Eosinophils Percent Auto 3.2 % (0-4.4); Hematocrit 29.6 % (42.0-52.0); Immature Granulocyte Absolute 0.11 K/mm3 (0.00-0.031); Immature Granulocyte Percent A 1.1 % (0-0.5); Lymphocytes Absolute Auto 0.57 K/mm3 (0.9-3.2); Lymphocytes Percent Auto 5.8 % (18.3-44.2); Mean Corpuscular HGB Conc 30.4 g/dl (32-36); Mean Corpuscular Hemoglobin 33.3 pg (26-34); Mean Corpuscular Volume 109.6 fl (80-100); Mean Platelet Volume 11.4 fl (7.4-10.4); Monocytes Absolute Auto 0.9 K/mm3 (0.1-0.6); Monocytes Percent Auto 9.4 % (2.6-8.5); Neutrophils Absolute Auto 7.8 K/mm3 (1.3-6.7); Neutrophils Percent Auto 79.2 % (45.5-73.1); Nucleated Red Blood Cells Absolute Auto 0.1 K/mm3 (0.0-0.012); Nucleated Red Blood Cells Perc 0.6 % (0.0-0.2); Platelet Count Result 201 k/mm3 (150-375); Red Cell Distribution Width 21.3 % (11.5-14.5); White Blood Count 9.8 K/mm3 (4.5-10.0)
--- NOTE | 2023-03-31 18:17 | ECG_ITS ---
Measurements Intervals [place] Rate: 78 P: 24 [place]: 168 QRS: 6 QRSD: 112 T: 48 QT: 402 QTc: 459 Interpretive Statements SINUS RHYTHM WITH OCCASIONAL ECTOPIC PREMATURE COMPLEXES LOW QRS VOLTAGE IN EXTREMITY LEADS [QRS DEFLECTION < 0.5 mV IN LIMB LEADS] POOR R-WAVE PROGRESSION/CANNOT EXCLUDE PREVIOUS ANTEROSEPTAL DE. ABNORMAL ECG COMPARED TO ECG 03/27/2023 14:05:34 NO SIGNIFICANT CHANGE Electronically Signed On 04-01-2023 7:13:55 CDT by Ahmte Diaz M.D.
--- NOTE | 2023-03-31 18:20 | PC.NURSE ---
Spoke with Dr. Patel regarding new onset of chest pain. Per MD stat EKG and 30mL of Maalox and continue to monitor.
[2023-03-31 18:36] LABS: Procalcitonin 1.4 ng/mL
[2023-03-31] MEDS: ONDANSETRON INJ 4 MG/2 ML VIAL IV PUSH (18:50)
[2023-03-31 19:20] LABS: Hypochromasia 1+ (NORMAL); Platelet Estimate Adequate (Adequate); Schistocytes None Seen (NORMAL)
[2023-03-31 19:21] LABS: Anisocytosis 3+ (NORMAL)
[2023-03-31 19:22] LABS: Macrocytosis 2+ (NORMAL); Polychromasia 1+ (NORMAL)
[2023-03-31] MEDS: MAG HYDROX/AL HYDROX/SIMETH 30 ML UDC PO (19:23)
[2023-03-31 20:50] LABS: Glucose Point of Care 169 mg/dl (65-105)
[2023-03-31] MEDS: VANCOMYCIN 750 MG/NS 250 ML BAG 250 MG IVPB (21:45)
[2023-03-31] MEDS: rOPINIRole HCL 0.5 MG TABLET PO (22:10)
[2023-03-31] MEDS: ACETAMINOPHEN 325 MG TABLET 650 MG PO (23:21)
[2023-04-01] VITALS (12 sets, daily range): BP systolic 136–167; BP diastolic 53–63; PULSE 72–82; RESP 16–20; TEMP 36.3–37.2; O2SAT 90–96
--- NOTE | 2023-04-01 00:12 | ECG_ITS ---
Measurements Intervals [place] Rate: 81 P: 9 [place]: 168 QRS: 1 QRSD: 105 T: 34 QT: 367 QTc: 428 Interpretive Statements SINUS RHYTHM SEPTAL MYOCARDIAL INFARCTION [40+ ms Q WAVE IN V1/V2], PROBABLY OLD INFERIOR MYOCARDIAL INFARCTION [40+ ms Q WAVE AND/OR ST/T ABNORMALITY IN II/aVF], PROBABLY OLD WARNING: DATA QUALITY MAY AFFECT INTERPRETATION COMPARED TO ECG 03/31/2023 18:46:13 NO SIGNIFICANT CHANGES Electronically Signed On 04-03-2023 11:06:19 CDT by Clarisa Reese M.D.
[2023-04-01] MEDS: NITROGLYCERIN SL 0.4 MG TABLET SUBLINGUAL (00:48)
[2023-04-01] MEDS: FUROSEMIDE INJ 40 MG/4 ML VIAL IV PUSH (02:00)
[2023-04-01 06:17] LABS: Basophils Absolute Auto 0.1 K/mm3 (0.0-0.1); Basophils Percent Auto 1.2 % (0.2-1.2); Eosinophils Absolute Auto 0.1 K/mm3 (0-0.3); Eosinophils Percent Auto 1.3 % (0-4.4); Hemoglobin 9.1 g/dL (14.0-18.0); Immature Granulocyte Absolute 0.15 K/mm3 (0.00-0.031); Immature Granulocyte Percent A 1.4 % (0-0.5); Lymphocytes Absolute Auto 0.74 K/mm3 (0.9-3.2); Lymphocytes Percent Auto 7.1 % (18.3-44.2); Mean Corpuscular HGB Conc 30.3 g/dl (32-36); Mean Corpuscular Hemoglobin 33.3 pg (26-34); Mean Corpuscular Volume 109.9 fl (80-100); Mean Platelet Volume 11.5 fl (7.4-10.4); Monocytes Absolute Auto 1.1 K/mm3 (0.1-0.6); Monocytes Percent Auto 10.4 % (2.6-8.5); Neutrophils Absolute Auto 8.2 K/mm3 (1.3-6.7); Neutrophils Percent Auto 78.6 % (45.5-73.1); Nucleated Red Blood Cells Absolute Auto 0.1 K/mm3 (0.0-0.012); Nucleated Red Blood Cells Perc 0.6 % (0.0-0.2); Platelet Count Result 207 k/mm3 (150-375); Red Blood Count 2.73 M/mm3 (4.6-6.20); Red Cell Distribution Width 21.2 % (11.5-14.5); White Blood Count 10.4 K/mm3 (4.5-10.0)
[2023-04-01 06:40] LABS: Alanine Aminotransferase 20 U/L (6-50); Albumin Level 3.5 g/dL (3.5-5.1); Alkaline Phosphatase 107 U/L (38-126); Anion Gap 10 mmol/L (8-16); Aspartate Amino Transferase 24 U/L (17-59); Bilirubin,Total 0.7 mg/dL (0.2-1.3); Blood Urea Nitrogen 42 mg/dL (9-20); Calcium 7.9 mg/dL (8.4-10.2); Carbon Dioxide 27 mmol/L (22-30); Chloride 104 mmol/L (98-107); Estimated CRCL calculation 21 ml/min; Estimated Glomerular Filt Rate 17; Glucose 160 mg/dL (65-110); Phosphorus 4.4 mg/dL (2.5-4.5); Potassium 4.5 mmol/L (3.4-5.0); Sodium 141 mmol/L (137-145)
[2023-04-01 08:38] LABS: Glucose Point of Care 148 mg/dl (65-105)
[2023-04-01] MEDS: SERTRALINE HCL 25 MG TABLET PO (09:35)
[2023-04-01] MEDS: buPROPion HCL 75 MG TABLET PO ×2 (09:36→20:05)
[2023-04-01] MEDS: CEFEPIME 1 GM/NS 50 ML 1 GM/50 ML BAG IVPB (09:36)
--- NOTE | 2023-04-01 09:47 | PM.IMPN ---
Progress Note: A&P Assessment and Plan (1) Acute on chronic kidney failure: Code(s): N17.9 - Acute kidney failure, unspecified; N18.9 - Chronic kidney disease, unspecified Status: Acute (2) Volume overload: Code(s): E87.70 - Fluid overload, unspecified Status: Acute (3) Bradycardia: Code(s): R00.1 - Bradycardia, unspecified Status: Acute (4) Hypothermia: Code(s): T68.XXXA - Hypothermia, initial encounter Status: Acute (5) Diastolic congestive heart failure: Code(s): I50.30 - Unspecified diastolic (congestive) heart failure Status: Acute (6) Chronic anemia: Code(s): D64.9 - Anemia, unspecified Status: Acute (7) Hypertension: Qualifiers: Hypertension type: primary hypertension Qualified Code(s): I10 - Essential (primary) hypertension Code(s): I10 - Essential (primary) hypertension Status: Chronic (8) Obstructive sleep apnea: Code(s): G47.33 - Obstructive sleep apnea (adult) (pediatric) Status: Acute (9) Insulin dependent diabetes mellitus: Status: Acute (10) Community acquired pneumonia due to Haemophilus influenzae: Code(s): J14 - Pneumonia due to Hemophilus influenzae Status: Acute (11) Complicated UTI (urinary tract infection): Code(s): N39.0 - Urinary tract infection, site not specified Status: Acute Plan (1) Acute on chronic kidney failure: ?Code(s): N17.9 - Acute kidney failure, unspecified; N18.9 - Chronic kidney disease, unspecified ?Status:?Acute ?Assessment and Plan: Baseline creatinine seems to range between 2.0 and 3.0 however has been worsening over the past 1 month. Creatinine today is 5.70 compared to a creatinine of 4.40 just 10 days ago. His urine output has dropped off. He had 4 g of protein out on 24 hour urine done during his most recent hospitalization. As above, he may be heading towards dialysis to remove this fluid. Nephrology consulted. Apodaca catheter inserted for strict I/O. Core Oven Tender considers progression of CKD (2) Volume overload: ?Code(s): E87.70 - Fluid overload, unspecified ?Status:?Acute ?Assessment and Plan: The patient has significant volume overload.?He has gained 30 kg in a month.?He has severe pitting edema up to the mid chest. CT scan shows anasarca with moderate right and small to moderate left pleural effusions, a small to moderate amount of ascites, and extensive body wall, retroperitoneal, and mesenteric edema. Blood pressures were stable on arrival but are now soft and he is unable to be diuresed. Received albumin with Lasix. His renal function is worsening Patient ends up needing dialysis to remove this fluid. Nephrology consulted, appreciate founding partner's consultation Patient underwent hemodialysis in past 2 days, 2>2.5 L fluid was removed.? 03/31 patient is on dialysis again pass removed 3.5 Approach to euvolemia Edema is improving Pending dialysis on Sunday (3) Bradycardia: ?Code(s): R00.1 - Bradycardia, unspecified ?Status:?Acute ?Assessment and Plan: May very well be due to hypothermia and uremia. Hold carvedilol. Check TSH though that was normal 2 months ago. (4) Hypothermia: ?Code(s): T68.XXXA - Hypothermia, initial encounter ?Status:?Acute ?Assessment and Plan: need to rule out sepsis Blood culture and urine culture no growth so far Resolves (5) Diastolic congestive heart failure: ?Code(s): I50.30 - Unspecified diastolic (congestive) heart failure ?Status:?Acute ?Assessment and Plan: Echocardiogram last month showed a normal LV systolic function with grade 2 diastolic noncompliance. He has significant volume overload as detailed above which is due to his worsening renal function and some part due to congestive heart failure as well. Pulmonary congestion is improving on hemodialysis (6) Chronic anemia: ?Code(s): D64.9 - Anemia, unsp
[2023-04-01 11:36] LABS: Hepatitis B Core Ab Total Nonreactive (Nonreactive)
[2023-04-01 12:14] LABS: Glucose Point of Care 144 mg/dl (65-105)
--- NOTE | 2023-04-01 14:10 | P.PNNP_ITS ---
Progress Note: A&P Assessment and Plan (1) VISHNU (acute kidney injury): Code(s): N17.9 - Acute kidney failure, unspecified Status: Acute Assessment and Plan: * as noted by trend of labs since admission (and previous admissions/hospitalizations) * rather than VISHNU, I suspect this is just progression of his known CKD * inititated on PROSTHETIST/dialysis * He had dialysis Sunday and Sunday. * Will order dialysis for tomorrow (2) Chronic kidney disease, stage IV (severe): Code(s): N18.4 - Chronic kidney disease, stage 4 (severe) Status: Acute Assessment and Plan: * creatinine ~ 4.0 - 4.5mg/dl during last hospitalization -- assumption was this was his new baseline * follows with Dr. Davis Ny for CKD management * suspect due to HTN, DM, vascular disease, and age-related change (3) Volume overload: Code(s): E87.70 - Fluid overload, unspecified Status: Acute Assessment and Plan: * as evidenced by physical exam and imaging studies * he has gained almost 60+ pounds since last hospitalization * Working on getting rid of the fluid with dialysis. * Will get another treatment tomorrow (4) Diastolic congestive heart failure: Code(s): I50.30 - Unspecified diastolic (congestive) heart failure Status: Acute Assessment and Plan: * fluid status worse at this time more so due to renal dysfunction * fluid removal with dialysis as tolerated * No chest pain. Still some swelling and shortness of breath (5) Anemia: Code(s): D64.9 - Anemia, unspecified Status: Chronic Assessment and Plan: * adequate iron stores by anemia studies * On antibiotics so we could not use iron at this point anyway. * Getting Epogen. * Hemoglobin 9.1 today. (6) Diabetes mellitus with chronic kidney disease: Code(s): E11.22 - Type 2 diabetes mellitus with diabetic chronic kidney disease Status: Chronic Assessment and Plan: * follow accu-cheks * glycemic control per hospitalisits Subjective Date/time seen: 04/01/23 14:10 Interval history: Patient is confused. A bit sleepy today. Did well for the rest of his dialysis yesterday. Nursing says he has been doing well. Exam Narrative: General: ill appearing and elderly male in NAD Heart: normal S1 and S2; no rub or gallop Lungs: Decreased breath sounds at the bases. Abdomen: soft, nontender, nondistended, positive bowel sounds Extremities: Still has 2 to3+ bilateral edema Skin: No rash or subQ nodules Objective Data Vital Signs Vital Signs: Vital Signs - 24 hr 03/31/23 16:00 03/31/23 16:00 03/31/23 16:00 Temperature 97.1 F L Pulse Rate 76 89 82 Respiratory Rate 17 24 H Blood Pressure 158/66 H Pulse Oximetry 95 95 Oxygen Delivery Nasal Cannula Oxygen Flow Rate 3 Fraction of Inspired Oxygen 40 03/31/23 18:00 03/31/23 14:30 03/31/23 14:50 Temperature 97.5 F L Pulse Rate 79 81 84 Respiratory Rate 18 Blood Pressure 152/77 H 181/81 H Pulse Oximetry Oxygen Delivery Oxygen Flow Rate Fraction of Inspired Oxygen 03/31/23 20:00 04/01/23 00:00 04/01/23 04:00 Temperature 99.7 F H 98.7 F 98.9 F Pulse Rate 86 80 80 Respiratory Rate 20
--- NOTE | 2023-04-01 14:10 | PM.PNNEP ---
Progress Note: A&P Assessment and Plan (1) VISHNU (acute kidney injury): Code(s): N17.9 - Acute kidney failure, unspecified Status: Acute Assessment and Plan: as noted by trend of labs since admission (and previous admissions/hospitalizations) rather than VISHNU, I suspect this is just progression of his known CKD inititated on BARREL CHARRER/dialysis He had dialysis Sunday and Sunday. Will order dialysis for tomorrow (2) Chronic kidney disease, stage IV (severe): Code(s): N18.4 - Chronic kidney disease, stage 4 (severe) Status: Acute Assessment and Plan: creatinine ~ 4.0 - 4.5mg/dl during last hospitalization -- assumption was this was his new baseline follows with Dr. Davis yN for CKD management suspect due to HTN, DM, vascular disease, and age-related change (3) Volume overload: Code(s): E87.70 - Fluid overload, unspecified Status: Acute Assessment and Plan: as evidenced by physical exam and imaging studies he has gained almost 60+ pounds since last hospitalization Working on getting rid of the fluid with dialysis. Will get another treatment tomorrow (4) Diastolic congestive heart failure: Code(s): I50.30 - Unspecified diastolic (congestive) heart failure Status: Acute Assessment and Plan: fluid status worse at this time more so due to renal dysfunction fluid removal with dialysis as tolerated No chest pain. Still some swelling and shortness of breath (5) Anemia: Code(s): D64.9 - Anemia, unspecified Status: Chronic Assessment and Plan: adequate iron stores by anemia studies On antibiotics so we could not use iron at this point anyway. Getting Epogen. Hemoglobin 9.1 today. (6) Diabetes mellitus with chronic kidney disease: Code(s): E11.22 - Type 2 diabetes mellitus with diabetic chronic kidney disease Status: Chronic Assessment and Plan: follow accu-cheks glycemic control per hospitalisits Subjective Date/time seen: 04/01/23 14:10 Interval history: Patient is confused. A bit sleepy today. Did well for the rest of his dialysis yesterday. Nursing says he has been doing well. Exam Narrative: General: ill appearing and elderly male in NAD Heart: normal S1 and S2; no rub or gallop Lungs: Decreased breath sounds at the bases. Abdomen: soft, nontender, nondistended, positive bowel sounds Extremities: Still has 2 to3+ bilateral edema Skin: No rash or subQ nodules Objective Data Vital Signs Vital Signs: Vital Signs - 24 hr 03/31/23 16:00 03/31/23 16:00 03/31/23 16:00 Temperature 97.1 F L Pulse Rate 76 89 82 Respiratory Rate 17 24 H Blood Pressure 158/66 H Pulse Oximetry 95 95 Oxygen Delivery Nasal Cannula Oxygen Flow Rate 3 Fraction of Inspired Oxygen 40 03/31/23 18:00 03/31/23 14:30 03/31/23 14:50 Temperature 97.5 F L Pulse Rate 79 81 84 Respiratory Rate 18 Blood Pressure 152/77 H 181/81 H Pulse Oximetry Oxygen Delivery Oxygen Flow Rate Fraction of Inspired Oxygen 03/31/23 20:00 04/01/23 00:00 04/01/23 04:00 Temperature 99.7 F H 98.7 F 98.9 F Pulse Rate 86 80 80 Respiratory Rate 20 20 20 Blood Pressure 164/67 H 152/57 H 167/53 H Pulse Oximetry 95 90 93 Oxygen Delivery Oxygen Flow Rate Fraction of Inspired Oxygen 03/31/23 20:00 03/31/23 22:00 04/01/23 00:00 Temperature Pulse Rate 84 80 81 Respiratory Rate Blood Pressure Pulse Oximetry Oxygen Delivery Oxygen Flow Rate Fraction of Inspired Oxygen 04/01/23 02:00 04/01/23 04:00 04/01/23 06:00 Temperature Pulse Rate 80 80 78 Respiratory Rate Blood Pressure Pulse Oximetry Oxygen Delivery Oxygen Flow Rate Fraction of Inspired Oxygen 03/31/23 20:00 04/01/23 00:00 04/01/23 04:00 Temperature Pulse Rate 84 81 80 Respiratory Rate Blood Pressure Pulse Oximetry 94 93
[2023-04-01 15:40] LABS: Basophils Absolute Auto 0.1 K/mm3 (0.0-0.1); Basophils Percent Auto 0.7 % (0.2-1.2); Eosinophils Absolute Auto 0.2 K/mm3 (0-0.3); Eosinophils Percent Auto 1.8 % (0-4.4); Hematocrit 28.7 % (42.0-52.0); Hemoglobin 8.5 g/dL (14.0-18.0); Immature Granulocyte Absolute 0.15 K/mm3 (0.00-0.031); Immature Granulocyte Percent A 1.5 % (0-0.5); Lymphocytes Absolute Auto 0.62 K/mm3 (0.9-3.2); Lymphocytes Percent Auto 6.3 % (18.3-44.2); Mean Corpuscular HGB Conc 29.6 g/dl (32-36); Mean Corpuscular Hemoglobin 32.8 pg (26-34); Mean Corpuscular Volume 110.8 fl (80-100); Mean Platelet Volume 11.4 fl (7.4-10.4); Monocytes Absolute Auto 0.9 K/mm3 (0.1-0.6); Monocytes Percent Auto 8.7 % (2.6-8.5); Nucleated Red Blood Cells Absolute Auto 0.1 K/mm3 (0.0-0.012); Nucleated Red Blood Cells Perc 0.7 % (0.0-0.2); Platelet Count Result 185 k/mm3 (150-375); Red Blood Count 2.59 M/mm3 (4.6-6.20); Red Cell Distribution Width 21.2 % (11.5-14.5); White Blood Count 9.9 K/mm3 (4.5-10.0)
[2023-04-01 16:12] LABS: Anisocytosis 2+ (NORMAL); Hypochromasia 1+ (NORMAL); Platelet Estimate Adequate (Adequate); Schistocytes None Seen (NORMAL)
[2023-04-01 16:13] LABS: Burr Cells 1+ (NORMAL); Macrocytosis 2+ (NORMAL)
[2023-04-01 17:15] LABS: Glucose Point of Care 168 mg/dl (65-105)
[2023-04-01] MEDS: rOPINIRole HCL 0.5 MG TABLET PO (20:05)
[2023-04-01 21:26] LABS: Glucose Point of Care 189 mg/dl (65-105)
[2023-04-02] VITALS (28 sets, daily range): BP systolic 146–165; BP diastolic 49–77; PULSE 67–96; RESP 11–22; TEMP 35.6–37.6; O2SAT 92–97
--- NOTE | 2023-04-02 00:55 | PM.EVENT ---
Event Note Event Note Event Note: Nursing staff contacted me as the patient was having significant increasing oxygen requirements. When I arrived to evaluate the patient he was delirious but this was unchanged from his recent exams. He is hallucinating in mumbling random statements. He had accessory muscle use. He was not diaphoretic. He did have generalized pallor. He was on cooperative with exam. He had decreased breath sounds bilaterally. I had reviewed his chest x-ray from the previous day that had improved in parents and pleural effusions and edema. The patient had evidently received hemodialysis Sunday and Sunday but dialysis was skipped on Sunday. He has a new dialysis patient. He does have a history of COPD listed but was not actively wheezing. I did obtain an ABG and give the patient a nebulizer treatment to see if this would improve his respiratory symptoms. The breathing treatment did not seem to help his respiratory symptoms. The ABG was relatively unremarkable. I suspect that the patient's symptoms most likely are due to recurrent fluid overload since he did not receive dialysis on Sunday. According to notes the patient is supposed to get dialysis this morning. There is no note of whether not the Lasix I had given the patient in the corporate legal secretary hours of the was of any benefit. I instructed the nursing staff to call me if the patient had continued increasing oxygen requirements as would try given the patient another dose of Lasix but otherwise we will wait to the patient had hemodialysis and morning. 30 minutes was spent in critical care activities. Due to a high probability of clinically significant, life threatening deterioration, the patient required my highest level of preparedness to intervene emergently and I personally spent this critical care time directly and personally managing the patient. This critical care time included obtaining a history; examining the patient; pulse oximetry; ordering and review of studies; arranging urgent treatment with development of a management plan; evaluation of patient's response to treatment; frequent reassessment; and discussions with other providers. It was exclusive of separately billable procedures and treating other patients and teaching time. Please see Assessment and Plan section and the rest of the note for further information on patient assessment and treatment.
[2023-04-02] MEDS: ALBUTEROL SULFATE NEB 2.5 MG/3 ML INH 5 MG INHALATION (01:34)
[2023-04-02] MEDS: IPRATROPIUM BR 0.02% INH SOLN 0.5 MG/2.5 ML VIAL INHALATION (01:34)
[2023-04-02 01:53] LABS: Alveolar/Arterial O2 Gradient 222.3 mmHg; Base Excess ABG -2.7 mEq/l (+/-2.0); Carboxyhemoglobin 0.6 % THb (0-2.0); Device HIGH FLOW NASAL CANN; Fractional Inspired Oxygen 48 %; HCO3 ABG 23.5 mEq/l (22.0-26.0); Methemoglobin ABG 0.3 %THb (0-1.5); Modified Allen's Test Pass; Oxygen Content ABG 12.5 %vol (16.0-22.0); Oxygen Saturation ABG 91.4 % (95.0-100.0); Oxyhemoglobin 91.3 % THb (90.0-100.0); PCO2 ABG 47.3 mmHg (35.0-45.0); PO2 ABG 66.5 mmHg (80.0-100.0); PO2 FiO2 Ratio Arterial Blood 1.39 %; Reduced Hemoglobin 7.8 %THb (0-5.0); Site Drawn RIGHT RADIAL; Total Hemoglobin 9.7 g/dL (12.0-18.0); pH ABG 7.314 (7.350-7.450)
[2023-04-02] MEDS: ONDANSETRON INJ 4 MG/2 ML VIAL IV PUSH ×2 (05:08→18:01)
[2023-04-02 06:38] LABS: Vancomycin Random 18.2 ug/mL (10-20)
[2023-04-02 06:47] LABS: Basophils Absolute Auto 0.1 K/mm3 (0.0-0.1); Eosinophils Absolute Auto 0.1 K/mm3 (0-0.3); Eosinophils Percent Auto 1.4 % (0-4.4); Hematocrit 29.8 % (42.0-52.0); Hemoglobin 8.9 g/dL (14.0-18.0); Immature Granulocyte Absolute 0.16 K/mm3 (0.00-0.031); Immature Granulocyte Percent A 1.6 % (0-0.5); Lymphocytes Absolute Auto 0.88 K/mm3 (0.9-3.2); Lymphocytes Percent Auto 8.6 % (18.3-44.2); Mean Corpuscular HGB Conc 29.9 g/dl (32-36); Mean Corpuscular Hemoglobin 33.1 pg (26-34); Mean Corpuscular Volume 110.8 fl (80-100); Mean Platelet Volume 11.5 fl (7.4-10.4); Monocytes Absolute Auto 1.1 K/mm3 (0.1-0.6); Neutrophils Absolute Auto 7.8 K/mm3 (1.3-6.7); Neutrophils Percent Auto 76.4 % (45.5-73.1); Nucleated Red Blood Cells Absolute Auto 0.1 K/mm3 (0.0-0.012); Nucleated Red Blood Cells Perc 0.5 % (0.0-0.2); Platelet Count Result 181 k/mm3 (150-375); Red Blood Count 2.69 M/mm3 (4.6-6.20); White Blood Count 10.2 K/mm3 (4.5-10.0)
[2023-04-02 07:08] LABS: Alanine Aminotransferase 18 U/L (6-50); Albumin Level 3.2 g/dL (3.5-5.1); Alkaline Phosphatase 91 U/L (38-126); Anion Gap 8 mmol/L (8-16); Aspartate Amino Transferase 22 U/L (17-59); Bilirubin,Total 0.8 mg/dL (0.2-1.3); Blood Urea Nitrogen 50 mg/dL (9-20); Calcium 7.9 mg/dL (8.4-10.2); Carbon Dioxide 25 mmol/L (22-30); Chloride 105 mmol/L (98-107); Estimated CRCL calculation 18 ml/min; Estimated Glomerular Filt Rate 15; Glucose 183 mg/dL (65-110); Phosphorus 4.2 mg/dL (2.5-4.5); Potassium 4.5 mmol/L (3.4-5.0); Sodium 138 mmol/L (137-145)
[2023-04-02 08:11] LABS: Anisocytosis 2+ (NORMAL); Macrocytosis 1+ (NORMAL); Platelet Estimate Adequate (Adequate); Schistocytes Rare (NORMAL)
[2023-04-02 08:12] LABS: Crenated RBC 1+ (NORMAL)
[2023-04-02] MEDS: buPROPion HCL 75 MG TABLET PO ×2 (09:00→21:06)
[2023-04-02] MEDS: SERTRALINE HCL 25 MG TABLET PO (09:00)
--- NOTE | 2023-04-02 10:00 | PM.PNNEP ---
Progress Note: A&P Assessment and Plan (1) VISHNU (acute kidney injury): Code(s): N17.9 - Acute kidney failure, unspecified Status: Acute Assessment and Plan: as noted by trend of labs since admission (and previous admissions/hospitalizations) rather than VISHNU, I suspect this is just progression of his known CKD inititated on PUBLIC WORKS DIRECTOR/dialysis HD today consider DUF tomorrow for further fluid removal (2) Chronic kidney disease, stage IV (severe): Code(s): N18.4 - Chronic kidney disease, stage 4 (severe) Status: Acute Assessment and Plan: creatinine ~ 4.0 - 4.5mg/dl during last hospitalization -- assumption was this was his new baseline follows with Dr. Davis Ny for CKD management suspect due to HTN, DM, vascular disease, and age-related change (3) Volume overload: Code(s): E87.70 - Fluid overload, unspecified Status: Acute Assessment and Plan: as evidenced by physical exam and imaging studies he has gained almost 60+ pounds since last hospitalization working on getting rid of the fluid with dialysis HD today and possible DUF tomorrow (4) Diastolic congestive heart failure: Code(s): I50.30 - Unspecified diastolic (congestive) heart failure Status: Acute Assessment and Plan: fluid status worse at this time more so due to renal dysfunction fluid removal with dialysis as tolerated still with swelling and shortness of breath (5) Anemia: Code(s): D64.9 - Anemia, unspecified Status: Chronic Assessment and Plan: adequate iron stores by anemia studies getting Epogen with dialysis follow trend of H/H (6) Diabetes mellitus with chronic kidney disease: Code(s): E11.22 - Type 2 diabetes mellitus with diabetic chronic kidney disease Status: Chronic Assessment and Plan: follow accu-cheks glycemic control per hospitalists Will continue to follow. Subjective Date/time seen: 04/02/23 10:00 Interval history: Follow-up for acute kidney injury on chronic kidney disease versus progression of chronic kidney disease. Tolerating hemodialysis treatment at the time of my visit (seen on HD at 9:50AM); issues noted overnight with regard to hypoxia; no apparent distress when seen but quite sleepy/lethargic currently. Exam Narrative: General: ill appearing and elderly male in NAD Heart: normal S1 and S2; no rub or gallop Lungs: decreased breath sounds at the bases. Abdomen: soft, nontender, nondistended, positive bowel sounds Extremities: no cyanosis or clubbing, 2 -3+ bilateral edema Skin: warm and dry Objective Data Vital Signs Vital Signs: Vital Signs Temp Pulse Resp BP Pulse Ox O2 Del Method O2 Flow Rate 04/02/23 09:20 3 04/02/23 07:00 99.6 F 87 22 H 153/59 H 96 04/02/23 04:00 98.0 F 84 20 158/59 H 94 04/02/23 04:00 90 04/02/23 02:01 83 18 04/02/23 02:00 86 92 Nasal Cannula 6 04/02/23 01:40 86 18 04/02/23 01:32 93 High Flow Nasal Cannula 6 04/02/23 00:00 96 04/02/23 00:56 97 High Flow Nasal Cannula 8 04/02/23 00:34 98.3 F 88 20 146/57 H 97 04/02/23 00:00 98.3 F 88 20 146/57 H 97 04/01/23 20:00 82 04/01/23 20:00 92 Nasal Cannula 3 04/01/23 19:57 98.5 F 81 20 152/55 H 92 04/01/23 16:00 79 04/01/23 14:43 96 Nasal Cannula 3 04/01/23 14:00 79 04/01/23 12:00 75 04/01/23 12:00 79 16 96 Nasal Cannula 3 04/01/23 12:00 97.7 F 79 16 136/59 L 96 Intake/Output Intake/Output: Intake & Output 03/30/23 03/31/23 04/01/23 04/02/23 23:59 23:59 23:59 23:59 Intake Total 660 420 50 478 Output Total 3950 4150 300 068 [facility] [phone] Meds/Results Medications: Active Medications Generic Name Dose Route Start Last Admin Trade Name Freq PRN Reason Stop Dose Admin Bupropion HCl 75 mg 03/27/23 23:0
--- NOTE | 2023-04-02 10:00 | P.PNNP_ITS ---
Progress Note: A&P Assessment and Plan (1) VISHNU (acute kidney injury): Code(s): N17.9 - Acute kidney failure, unspecified Status: Acute Assessment and Plan: * as noted by trend of labs since admission (and previous admissions/hospitalizations) * rather than VISHNU, I suspect this is just progression of his known CKD * inititated on PRINTER SLOTTER HELPER/dialysis * HD today * consider DUF tomorrow for further fluid removal (2) Chronic kidney disease, stage IV (severe): Code(s): N18.4 - Chronic kidney disease, stage 4 (severe) Status: Acute Assessment and Plan: * creatinine ~ 4.0 - 4.5mg/dl during last hospitalization -- assumption was this was his new baseline * follows with Dr. Davis Ny for CKD management * suspect due to HTN, DM, vascular disease, and age-related change (3) Volume overload: Code(s): E87.70 - Fluid overload, unspecified Status: Acute Assessment and Plan: * as evidenced by physical exam and imaging studies * he has gained almost 60+ pounds since last hospitalization * working on getting rid of the fluid with dialysis * HD today and possible DUF tomorrow (4) Diastolic congestive heart failure: Code(s): I50.30 - Unspecified diastolic (congestive) heart failure Status: Acute Assessment and Plan: * fluid status worse at this time more so due to renal dysfunction * fluid removal with dialysis as tolerated * still with swelling and shortness of breath (5) Anemia: Code(s): D64.9 - Anemia, unspecified Status: Chronic Assessment and Plan: * adequate iron stores by anemia studies * getting Epogen with dialysis * follow trend of H/H (6) Diabetes mellitus with chronic kidney disease: Code(s): E11.22 - Type 2 diabetes mellitus with diabetic chronic kidney disease Status: Chronic Assessment and Plan: * follow accu-cheks * glycemic control per hospitalists Will continue to follow. Subjective Date/time seen: 04/02/23 10:00 Interval history: Follow-up for acute kidney injury on chronic kidney disease versus progression of chronic kidney disease. Tolerating hemodialysis treatment at the time of my visit (seen on HD at 9: 50AM); issues noted overnight with regard to hypoxia; no apparent distress when seen but quite sleepy/lethargic currently. Exam Narrative: General: ill appearing and elderly male in NAD Heart: normal S1 and S2; no rub or gallop Lungs: decreased breath sounds at the bases. Abdomen: soft, nontender, nondistended, positive bowel sounds Extremities: no cyanosis or clubbing, 2 -3+ bilateral edema Skin: warm and dry Objective Data Vital Signs Vital Signs: Vital Signs Temp Pulse Resp BP Pulse Ox O2 Del Method O2 Flow Rate 04/02/23 09:20 3 04/02/23 07:00 99.6 F 87 22 H 153/59 H 96 04/02/23 04:00 98.0 F 84 20 158/59 H 94 04/02/23 04:00 90 04/02/23 02:01 83 18 04/02/23 02:00 86 92 Nasal Cannula 6 04/02/23 01:40 86 18 04/02/23 01:32 93 High Flow Nasal Cannula 6 04/02/23 00:00 96 04/02/23 00:56 97 High Flow Nasal Cannula 8 04/02/23 00:34 98.3 F 88 20 146/57 H 97 04/02/23 00:00 98.3 F 88 20 146/57 H 97 04/01/23 20:00 82 04/01/23 20:00 92 Nasal Cannula 3
[2023-04-02] MEDS: EPOETIN ALFA 10,000 UNITS/ML VIAL 10000 UNITS IV PUSH (11:10)
--- NOTE | 2023-04-02 11:58 | PM.IMPN ---
Progress Note: A&P Assessment and Plan (1) Acute on chronic kidney failure: Code(s): N17.9 - Acute kidney failure, unspecified; N18.9 - Chronic kidney disease, unspecified Status: Acute (2) Volume overload: Code(s): E87.70 - Fluid overload, unspecified Status: Acute (3) Bradycardia: Code(s): R00.1 - Bradycardia, unspecified Status: Acute (4) Hypothermia: Code(s): T68.XXXA - Hypothermia, initial encounter Status: Acute (5) Diastolic congestive heart failure: Code(s): I50.30 - Unspecified diastolic (congestive) heart failure Status: Acute (6) Chronic anemia: Code(s): D64.9 - Anemia, unspecified Status: Acute (7) Hypertension: Qualifiers: Hypertension type: primary hypertension Qualified Code(s): I10 - Essential (primary) hypertension Code(s): I10 - Essential (primary) hypertension Status: Chronic (8) Obstructive sleep apnea: Code(s): G47.33 - Obstructive sleep apnea (adult) (pediatric) Status: Acute (9) Insulin dependent diabetes mellitus: Status: Acute (10) Community acquired pneumonia due to Haemophilus influenzae: Code(s): J14 - Pneumonia due to Hemophilus influenzae Status: Acute (11) Complicated UTI (urinary tract infection): Code(s): N39.0 - Urinary tract infection, site not specified Status: Acute Plan (1) Acute on chronic kidney failure: ?Code(s): N17.9 - Acute kidney failure, unspecified; N18.9 - Chronic kidney disease, unspecified ?Status:?Acute ?Assessment and Plan: Baseline creatinine seems to range between 2.0 and 3.0 however has been worsening over the past 1 month. Creatinine today is 5.70 compared to a creatinine of 4.40 just 10 days ago. His urine output has dropped off. He had 4 g of protein out on 24 hour urine done during his most recent hospitalization. As above, he may be heading towards dialysis to remove this fluid. Nephrology consulted. Apodaca catheter inserted for strict I/O. Mending Carrier considers progression of CKD (2) Volume overload: ?Code(s): E87.70 - Fluid overload, unspecified ?Status:?Acute ?Assessment and Plan: The patient has significant volume overload.?He has gained 30 kg in a month.?He has severe pitting edema up to the mid chest. CT scan shows anasarca with moderate right and small to moderate left pleural effusions, a small to moderate amount of ascites, and extensive body wall, retroperitoneal, and mesenteric edema. Blood pressures were stable on arrival but are now soft and he is unable to be diuresed. Received albumin with Lasix. His renal function is worsening Patient ends up needing dialysis to remove this fluid. Nephrology consulted, appreciate order entry specialist's consultation Patient underwent hemodialysis in past 2 days, 2>2.5 L fluid was removed.? 03/31 patient is on dialysis again pass removed 3.5 Approach to euvolemia Edema is improving on dialysis today, plan to remove 4 liter today (3) Bradycardia: ?Code(s): R00.1 - Bradycardia, unspecified ?Status:?Acute ?Assessment and Plan: May very well be due to hypothermia and uremia. Hold carvedilol. resolves (4) Hypothermia: ?Code(s): T68.XXXA - Hypothermia, initial encounter ?Status:?Acute ?Assessment and Plan: need to rule out sepsis Blood culture and urine culture no growth so far Resolves (5) Diastolic congestive heart failure: ?Code(s): I50.30 - Unspecified diastolic (congestive) heart failure ?Status:?Acute ?Assessment and Plan: Echocardiogram last month showed a normal LV systolic function with grade 2 diastolic noncompliance. significant volume overload as detailed above which is due to his worsening renal function and some part due to congestive heart failure as well. Pulmonary congestion is improving on hemodialysis (6) Chronic anemia: ?Code(s): D64.9 - Anemia, unspecified ?St
[2023-04-02] MEDS: CEFEPIME 1 GM/NS 50 ML 1 GM/50 ML BAG IVPB (13:21)
[2023-04-02] MEDS: oxyCODONE HCL (*CRX) 5 MG TAB IR PO ×2 (14:56→21:05)
--- NOTE | 2023-04-02 15:03 | PC.NURSE ---
Reviewed assessment of patient by Aleshia Davis film sorter of [facility]. Agree with assessment. Student has passed medications and will report to RN at end of shift.
[2023-04-02 16:51] LABS: Glucose Point of Care 161 mg/dl (65-105)
--- NOTE | 2023-04-02 17:09 | PC.NURSE ---
Patients blood glucose is not transmitting to the lab records at 0757 the patient blood glucose was 190 1320 the patient blood glucose was 161 1657 the patients blood glucose was 162
--- NOTE | 2023-04-02 20:14 | PC.NURSE ---
This patient, Kenneth Powers, was transferred to [facility] from [facility] on 04/02/23 at 2013. Personal belongings brought to new room. Family updated on room change to be closer to nursing station.
[2023-04-02] MEDS: rOPINIRole HCL 0.5 MG TABLET PO (21:06)
[2023-04-02 21:17] LABS: Glucose Point of Care 164 mg/dl (65-105)
[2023-04-03] VITALS (16 sets, daily range): BP systolic 145–175; BP diastolic 57–84; PULSE 66–93; RESP 12–18; TEMP 36–36.6; O2SAT 90–100
[2023-04-03 05:30] LABS: Basophils Absolute Auto 0.1 K/mm3 (0.0-0.1); Basophils Percent Auto 1.2 % (0.2-1.2); Eosinophils Absolute Auto 0.2 K/mm3 (0-0.3); Eosinophils Percent Auto 2.3 % (0-4.4); Hematocrit 29.7 % (42.0-52.0); Hemoglobin 8.9 g/dL (14.0-18.0); Immature Granulocyte Absolute 0.24 K/mm3 (0.00-0.031); Immature Granulocyte Percent A 2.6 % (0-0.5); Lymphocytes Percent Auto 8.7 % (18.3-44.2); Mean Corpuscular Hemoglobin 33.6 pg (26-34); Mean Corpuscular Volume 112.1 fl (80-100); Mean Platelet Volume 11.6 fl (7.4-10.4); Monocytes Absolute Auto 0.9 K/mm3 (0.1-0.6); Monocytes Percent Auto 9.3 % (2.6-8.5); Neutrophils Percent Auto 75.9 % (45.5-73.1); Nucleated Red Blood Cells Absolute Auto 0.1 K/mm3 (0.0-0.012); Nucleated Red Blood Cells Perc 0.5 % (0.0-0.2); Platelet Count Result 165 k/mm3 (150-375); Red Blood Count 2.65 M/mm3 (4.6-6.20); White Blood Count 9.2 K/mm3 (4.5-10.0)
[2023-04-03 05:38] LABS: Alanine Aminotransferase 17 U/L (6-50); Albumin Level 3.3 g/dL (3.5-5.1); Alkaline Phosphatase 91 U/L (38-126); Anion Gap 8 mmol/L (8-16); Aspartate Amino Transferase 22 U/L (17-59); Bilirubin,Total 0.8 mg/dL (0.2-1.3); Blood Urea Nitrogen 37 mg/dL (9-20); Carbon Dioxide 24 mmol/L (22-30); Chloride 105 mmol/L (98-107); Estimated CRCL calculation 21 ml/min; Estimated Glomerular Filt Rate 18; Glucose 178 mg/dL (65-110); Phosphorus 4.1 mg/dL (2.5-4.5); Potassium 4.5 mmol/L (3.4-5.0); Sodium 137 mmol/L (137-145)
[2023-04-03 05:58] LABS: Platelet Estimate Adequate (Adequate)
[2023-04-03 06:01] LABS: Anisocytosis 2+ (NORMAL); Macrocytosis 1+ (NORMAL); Microcytosis 1+ (NORMAL); Poikilocytosis 1+ (NORMAL); Schistocytes Rare (NORMAL)
[2023-04-03 08:23] LABS: Glucose Point of Care 180 mg/dl (65-105)
[2023-04-03] MEDS: buPROPion HCL 75 MG TABLET PO ×2 (08:53→20:39)
[2023-04-03] MEDS: SERTRALINE HCL 25 MG TABLET PO (08:53)
[2023-04-03] MEDS: CEFEPIME 1 GM/NS 50 ML 1 GM/50 ML BAG IVPB (09:13)
--- NOTE | 2023-04-03 11:05 | P.PNNP_ITS ---
Progress Note: A&P Assessment and Plan (1) VISHNU (acute kidney injury): Code(s): N17.9 - Acute kidney failure, unspecified Status: Acute Assessment and Plan: * as noted by trend of labs since admission (and previous admissions/hospitalizations) * rather than VISHNU, I suspect this is just progression of his known CKD * inititated on PIPELINE CONTROLLER/dialysis * unable to do DUF/HD due to lack of access * given the likelihood he will need to continue PIPELINE CONTROLLER/dialysis after discharge, will consult Surgery to place tunneled HD catheter * resume dialysis once HD catheter in place (2) Chronic kidney disease, stage IV (severe): Code(s): N18.4 - Chronic kidney disease, stage 4 (severe) Status: Acute Assessment and Plan: * creatinine ~ 4.0 - 4.5mg/dl during last hospitalization -- assumption was this was his new baseline * follows with Dr. Davis Ny for CKD management * suspect due to HTN, DM, vascular disease, and age-related change (3) Volume overload: Code(s): E87.70 - Fluid overload, unspecified Status: Acute Assessment and Plan: * as evidenced by physical exam and imaging studies * he has gained almost 60+ pounds since last hospitalization * about 11L negative with HD/DUF * continue getting rid of the fluid with dialysis (4) Diastolic congestive heart failure: Code(s): I50.30 - Unspecified diastolic (congestive) heart failure Status: Acute Assessment and Plan: * fluid status worse at this time more so due to renal dysfunction * fluid removal with dialysis as tolerated * still with swelling and some shortness of breath (5) Anemia: Code(s): D64.9 - Anemia, unspecified Status: Chronic Assessment and Plan: * adequate iron stores by anemia studies * getting Epogen with dialysis * follow trend of H/H (6) Diabetes mellitus with chronic kidney disease: Code(s): E11.22 - Type 2 diabetes mellitus with diabetic chronic kidney disease Status: Chronic Assessment and Plan: * follow accu-cheks * glycemic control per hospitalists Will continue to follow. Subjective Date/time seen: 04/03/23 11:05 Interval history: Follow-up for acute kidney injury on chronic kidney disease versus progression of chronic kidney disease. Tolerated dialysis yesterday without any issue or problems; signifcant agitation last night and accidently pulled out his temporary dialysis catheter; bleeding controlled; responsive to questions but then quickly falls back to sleep. Exam Narrative: General: ill appearing and elderly male in NAD Heart: normal S1 and S2; no rub or gallop Lungs: decreased breath sounds at the bases. Abdomen: soft, nontender, nondistended, positive bowel sounds Extremities: no cyanosis or clubbing, 2+ bilateral edema Skin: warm and intact Objective Data Vital Signs Vital Signs: Vital Signs Temp Pulse Resp BP Pulse Ox O2 Del Method O2 Flow Rate 04/03/23 08:03 80 04/03/23 08:53 18 93 Nasal Cannula 4 04/03/23 09:01 93 Nasal Cannula 4 04/03/23 08:00 96.8 F L 85 18 154/65 H 100 04/03/23 07:00 96 Nasal Cannula 4 04/03/23 04:00 71 04/03/23 04:00 97.8 F 73 18 167/66 H 100 04/03/23 02:35 66 16 97 CPAP 04/02/23 21:53 95 Nasal Cannula 4 04/03/23 00:00 78
--- NOTE | 2023-04-03 11:05 | PM.PNNEP ---
Progress Note: A&P Assessment and Plan (1) VISHNU (acute kidney injury): Code(s): N17.9 - Acute kidney failure, unspecified Status: Acute Assessment and Plan: as noted by trend of labs since admission (and previous admissions/hospitalizations) rather than VISHNU, I suspect this is just progression of his known CKD inititated on FINANCIAL ADVOCATE/dialysis unable to do DUF/HD due to lack of access given the likelihood he will need to continue FINANCIAL ADVOCATE/dialysis after discharge, will consult Surgery to place tunneled HD catheter resume dialysis once HD catheter in place (2) Chronic kidney disease, stage IV (severe): Code(s): N18.4 - Chronic kidney disease, stage 4 (severe) Status: Acute Assessment and Plan: creatinine ~ 4.0 - 4.5mg/dl during last hospitalization -- assumption was this was his new baseline follows with Dr. Davis Ny for CKD management suspect due to HTN, DM, vascular disease, and age-related change (3) Volume overload: Code(s): E87.70 - Fluid overload, unspecified Status: Acute Assessment and Plan: as evidenced by physical exam and imaging studies he has gained almost 60+ pounds since last hospitalization about 11L negative with HD/DUF continue getting rid of the fluid with dialysis (4) Diastolic congestive heart failure: Code(s): I50.30 - Unspecified diastolic (congestive) heart failure Status: Acute Assessment and Plan: fluid status worse at this time more so due to renal dysfunction fluid removal with dialysis as tolerated still with swelling and some shortness of breath (5) Anemia: Code(s): D64.9 - Anemia, unspecified Status: Chronic Assessment and Plan: adequate iron stores by anemia studies getting Epogen with dialysis follow trend of H/H (6) Diabetes mellitus with chronic kidney disease: Code(s): E11.22 - Type 2 diabetes mellitus with diabetic chronic kidney disease Status: Chronic Assessment and Plan: follow accu-cheks glycemic control per hospitalists Will continue to follow. Subjective Date/time seen: 04/03/23 11:05 Interval history: Follow-up for acute kidney injury on chronic kidney disease versus progression of chronic kidney disease. Tolerated dialysis yesterday without any issue or problems; signifcant agitation last night and accidently pulled out his temporary dialysis catheter; bleeding controlled; responsive to questions but then quickly falls back to sleep. Exam Narrative: General: ill appearing and elderly male in NAD Heart: normal S1 and S2; no rub or gallop Lungs: decreased breath sounds at the bases. Abdomen: soft, nontender, nondistended, positive bowel sounds Extremities: no cyanosis or clubbing, 2+ bilateral edema Skin: warm and intact Objective Data Vital Signs Vital Signs: Vital Signs Temp Pulse Resp BP Pulse Ox O2 Del Method O2 Flow Rate 04/03/23 08:03 80 04/03/23 08:53 18 93 Nasal Cannula 4 04/03/23 09:01 93 Nasal Cannula 4 04/03/23 08:00 96.8 F L 85 18 154/65 H 100 04/03/23 07:00 96 Nasal Cannula 4 04/03/23 04:00 71 04/03/23 04:00 97.8 F 73 18 167/66 H 100 04/03/23 02:35 66 16 97 CPAP 04/02/23 21:53 95 Nasal Cannula 4 04/03/23 00:00 78 04/02/23 20:00 96 Nasal Cannula 6 04/02/23 20:00 78 04/02/23 22:39 67 11 L 96 CPAP 04/03/23 00:00 97.6 F 72 18 148/57 H 100 04/02/23 12:45 98.2 F 80 18 158/51 H 04/02/23 19:26 98.5 F 87 18 153/49 H 04/02/23 16:00 80 04/02/23 16:00 96.7 F L 82 12 152/64 H 95 Intake/Output Intake/Output: Intake & Output 03/31/23 04/01/23 04/02/23 04/03/23 23:59 23:59 23:59 23:59 Intake Total 420 50 528 390 Output Total 4150 300 4250 300 Balance -3010 -278 -8077 90 Meds/Results Medications: Active Medications Generic Name Dose Route Start Last Adm
--- NOTE | 2023-04-03 11:20 | PCNFU ---
Nutrition Follow-Up Complete: Suboptimal po intake related to reduced appetite as evidenced by charted intake Goal: PO intake 75% or greater for meals Patient is progressing towards goal. We will continue current goal. Pt current nutrition is Renal Dialysis. Last recorded weight is 107.9 kg. Bowel Motility:+Bm reported 03/30 Labs Reviewed:Glu 178,BUN 37, GFR 18, Cr 3.4 Meds Noted:NovoLog,Lantus Skin:WNL Additional Notes: Spoke with nursing today, patient pulled dialysis catheter last night will be replacing. Oral intake for breakfast 50% with assist. Patient consumed oatmeal, pancakes. Drinking Iced tea and Nepro shakes (420 kcals/19 gms protein). Agree with diet orders. Monitor intake, wt, labs. Follow up in 7 days.
[2023-04-03] MEDS: INSULIN ASPART (*BKC) 100 UNITS/ML SUB-Q ×3 (12:05→20:46)
[2023-04-03 12:14] LABS: Glucose Point of Care 246 mg/dl (65-105)
[2023-04-03 12:50] LABS: Glucose Point of Care 162 mg/dl (65-105)
--- NOTE | 2023-04-03 13:07 | PM.IMPN ---
Progress Note: A&P Assessment and Plan (1) Acute on chronic kidney failure: Code(s): N17.9 - Acute kidney failure, unspecified; N18.9 - Chronic kidney disease, unspecified Status: Acute (2) Volume overload: Code(s): E87.70 - Fluid overload, unspecified Status: Acute (3) Bradycardia: Code(s): R00.1 - Bradycardia, unspecified Status: Acute (4) Hypothermia: Code(s): T68.XXXA - Hypothermia, initial encounter Status: Acute (5) Diastolic congestive heart failure: Code(s): I50.30 - Unspecified diastolic (congestive) heart failure Status: Acute (6) Chronic anemia: Code(s): D64.9 - Anemia, unspecified Status: Acute (7) Hypertension: Qualifiers: Hypertension type: primary hypertension Qualified Code(s): I10 - Essential (primary) hypertension Code(s): I10 - Essential (primary) hypertension Status: Chronic (8) Obstructive sleep apnea: Code(s): G47.33 - Obstructive sleep apnea (adult) (pediatric) Status: Acute (9) Insulin dependent diabetes mellitus: Status: Acute (10) Community acquired pneumonia due to Haemophilus influenzae: Code(s): J14 - Pneumonia due to Hemophilus influenzae Status: Acute (11) Complicated UTI (urinary tract infection): Code(s): N39.0 - Urinary tract infection, site not specified Status: Acute Plan (1) Acute on chronic kidney failure: ?Code(s): N17.9 - Acute kidney failure, unspecified; N18.9 - Chronic kidney disease, unspecified ?Status:?Acute ?Assessment and Plan: Baseline creatinine seems to range between 2.0 and 3.0 however has been worsening over the past 1 month. Creatinine today is 5.70 compared to a creatinine of 4.40 just 10 days ago. His urine output has dropped off. unfortunately pt pulled out his dialysis catheter needs new dialysis line fitted nephrology MD aware (2) Volume overload: ?Code(s): E87.70 - Fluid overload, unspecified ?Status:?Acute ?Assessment and Plan: The patient has significant volume overload.?He has gained 30 kg in a month.?He has severe pitting edema up to the mid chest. CT scan shows anasarca with moderate right and small to moderate left pleural effusions, a small to moderate amount of ascites, and extensive body wall, retroperitoneal, and mesenteric edema. Blood pressures were stable on arrival but are now soft and he is unable to be diuresed. Received albumin with Lasix. His renal function is worsening Patient ends up needing dialysis to remove this fluid. Nephrology consulted, appreciate program attendant's consultation Patient underwent hemodialysis in past 2 days, 2>2.5 L fluid was removed.? 03/31 patient is on dialysis again pass removed 3.5 Approach to euvolemia Edema is improving receiving dialysis in hospital (3) Bradycardia: ?Code(s): R00.1 - Bradycardia, unspecified ?Status:?Acute ?Assessment and Plan: May very well be due to hypothermia and uremia. Hold carvedilol. resolves (4) Hypothermia: ?Code(s): T68.XXXA - Hypothermia, initial encounter ?Status:?Acute ?Assessment and Plan: need to rule out sepsis Blood culture and urine culture no growth so far Resolves (5) Diastolic congestive heart failure: ?Code(s): I50.30 - Unspecified diastolic (congestive) heart failure ?Status:?Acute ?Assessment and Plan: Echocardiogram last month showed a normal LV systolic function with grade 2 diastolic noncompliance. significant volume overload as detailed above which is due to his worsening renal function and some part due to congestive heart failure as well. Pulmonary congestion is improving on hemodialysis (6) Chronic anemia: ?Code(s): D64.9 - Anemia, unspecified ?Status:?Acute ?Assessment and Plan: Stable No iron deficiency (7) Hypertension: ?Qualifiers: ?Hypertension type:?primary hypertension? Qualified Code(s
[2023-04-03 14:16] LABS: Glucose Point of Care 190 mg/dl (65-105)
[2023-04-03 17:02] LABS: Glucose Point of Care 288 mg/dl (65-105)
[2023-04-03] MEDS: rOPINIRole HCL 0.5 MG TABLET PO (20:39)
[2023-04-03 20:45] LABS: Glucose Point of Care 288 mg/dl (65-105)
[2023-04-03] MEDS: oxyCODONE HCL (*CRX) 5 MG TAB IR PO (20:47)
[2023-04-04] VITALS (23 sets, daily range): BP systolic 148–181; BP diastolic 55–84; PULSE 64–87; RESP 11–20; TEMP 36.1–37.1; O2SAT 88–97
[2023-04-04 06:21] LABS: Basophils Absolute Auto 0.1 K/mm3 (0.0-0.1); Basophils Percent Auto 1.2 % (0.2-1.2); Eosinophils Absolute Auto 0.4 K/mm3 (0-0.3); Eosinophils Percent Auto 4.4 % (0-4.4); Hematocrit 28.4 % (42.0-52.0); Hemoglobin 8.3 g/dL (14.0-18.0); Immature Granulocyte Absolute 0.14 K/mm3 (0.00-0.031); Immature Granulocyte Percent A 1.6 % (0-0.5); Lymphocytes Absolute Auto 0.61 K/mm3 (0.9-3.2); Lymphocytes Percent Auto 7.1 % (18.3-44.2); Mean Corpuscular HGB Conc 29.2 g/dl (32-36); Mean Corpuscular Hemoglobin 33.3 pg (26-34); Mean Corpuscular Volume 114.1 fl (80-100); Mean Platelet Volume 11.3 fl (7.4-10.4); Monocytes Absolute Auto 0.9 K/mm3 (0.1-0.6); Monocytes Percent Auto 10.4 % (2.6-8.5); Neutrophils Absolute Auto 6.5 K/mm3 (1.3-6.7); Neutrophils Percent Auto 75.3 % (45.5-73.1); Nucleated Red Blood Cells Absolute Auto 0.1 K/mm3 (0.0-0.012); Nucleated Red Blood Cells Perc 0.6 % (0.0-0.2); Platelet Count Result 165 k/mm3 (150-375); Red Blood Count 2.49 M/mm3 (4.6-6.20); Red Cell Distribution Width 20.8 % (11.5-14.5); White Blood Count 8.6 K/mm3 (4.5-10.0)
[2023-04-04 06:27] LABS: INR 1.3; Prothrombin Time 16.9 Seconds (11.1-14.7)
[2023-04-04 06:29] LABS: Alanine Aminotransferase 16 U/L (6-50); Albumin Level 3.2 g/dL (3.5-5.1); Alkaline Phosphatase 82 U/L (38-126); Anion Gap 5 mmol/L (8-16); Aspartate Amino Transferase 20 U/L (17-59); Bilirubin,Total 0.6 mg/dL (0.2-1.3); Blood Urea Nitrogen 48 mg/dL (9-20); Calcium 7.8 mg/dL (8.4-10.2); Carbon Dioxide 25 mmol/L (22-30); Chloride 106 mmol/L (98-107); Estimated CRCL calculation 16 ml/min; Estimated Glomerular Filt Rate 13; Glucose 203 mg/dL (65-110); Potassium 4.6 mmol/L (3.4-5.0); Sodium 136 mmol/L (137-145)
[2023-04-04 07:22] LABS: Anisocytosis 2+ (NORMAL); Hypochromasia 1+ (NORMAL); Macrocytosis 1+ (NORMAL); Platelet Estimate Adequate (Adequate); Poikilocytosis 1+ (NORMAL); Schistocytes None Seen (NORMAL)
[2023-04-04 08:23] LABS: Glucose Point of Care 181 mg/dl (65-105)
--- NOTE | 2023-04-04 09:17 | WPDHPUPDATE1 ---
History and Physical Update Update Date/Time: 04/04/23 09:17 History and Physical has been reviewed, including an updated exam of the patient. There are NO changes in the patient's condition. Risks, benefits, and alternatives have been discussed and questions answered. Patient agrees to proceed with procedure.
--- NOTE | 2023-04-04 09:17 | PM.PNGS ---
Progress Note: A&P Assessment and Plan (1) Acute on chronic kidney failure: Code(s): N17.9 - Acute kidney failure, unspecified; N18.9 - Chronic kidney disease, unspecified Status: Acute Assessment and Plan: Patient in need of new dialysis catheter. Will plan to place tunneled dialysis catheter today. Patient NPO. (2) Acute metabolic encephalopathy: Code(s): G93.41 - Metabolic encephalopathy Status: Acute (3) Volume overload: Code(s): E87.70 - Fluid overload, unspecified Status: Acute Subjective Subjective Date/Time Seen: 04/04/23 09:17 Interval history: Patient now is in need of tunneled dialysis catheter placement for half-way hemodialysis. Exam Chest: Other: Right subclavian Иван catheter recently removed. Objective Data Vital Signs Vital Signs: Vital Signs - 24 hr 04/03/23 12:00 04/03/23 12:00 04/03/23 16:03 Temperature 36.4 C L Pulse Rate 78 83 88 Respiratory Rate 18 Blood Pressure 145/66 H Pulse Oximetry 96 Oxygen Delivery Oxygen Flow Rate 04/03/23 16:00 04/03/23 20:38 04/03/23 20:49 Temperature 36.3 C L 36.5 C Pulse Rate 82 84 Respiratory Rate 18 16 Blood Pressure 157/65 H 175/64 H Pulse Oximetry 93 92 90 Oxygen Delivery Nasal Cannula Oxygen Flow Rate 4 04/03/23 20:00 04/03/23 20:00 04/04/23 00:00 Temperature Pulse Rate 93 73 Respiratory Rate Blood Pressure Pulse Oximetry 94 Oxygen Delivery Nasal Cannula Oxygen Flow Rate 4 04/04/23 01:07 04/03/23 22:20 04/04/23 03:01 Temperature 36.5 C Pulse Rate 75 69 65 Respiratory Rate 16 12 11 L Blood Pressure 174/64 H Pulse Oximetry 92 97 Oxygen Delivery CPAP CPAP Oxygen Flow Rate 04/04/23 04:00 04/04/23 07:00 Temperature 36.6 C Pulse Rate 72 75 Respiratory Rate 16 Blood Pressure 167/63 H Pulse Oximetry 92 Oxygen Delivery Oxygen Flow Rate Intake/Output Intake/Output: Intake & Output 04/01/23 04/02/23 04/03/23 04/04/23 23:59 23:59 23:59 23:59 Intake Total 50 528 1130 100 Output Total 300 4250 600 100 Balance -250 -3722 530 0 Meds/Results Medications: Active Medications Generic Name Dose Route Start Last Admin Trade Name Freq PRN Reason Stop Dose Admin Acetaminophen 650 mg 04/03/23 22:31 Acetaminophen 325 Mg Tablet PO Q4H PRN Pain Bupropion HCl 75 mg 03/27/23 23:05 04/03/23 20:39 Bupropion Hcl 75 Mg Tablet PO 75 mg Q12HR LXU Administration Dextrose 12.5 gm 03/27/23 22:55 03/29/23 08:03 Dextrose 50% 25 Gm/50 Ml Syringe IV PUSH 12.5 gm PRN PRN Administration Hypoglycemia Protocol Glucagon 1 mg 03/27/23 22:55 Glucagon For Inj 1 Mg Vial IM PRN PRN Hypoglycemia Protocol Glucose 15 gm 03/27/23 22:55 Glucose Oral Gel 15 Gm Of Glucse In 37.5 Gm Tube PO PRN PRN Hypoglycemia Protocol Dextrose 1,000 mls @ 100 mls/hr 03/27/23 22:55 Dextrose 5% 1,000 Ml IVPB PRN PRN Hypoglycemia Protocol Cefepime HCl 1 gm in 50 mls @ 100 mls/hr 03/29/23 10:00 04/03/23 09:45 Maxipime 1 Gm/Ns 50 Ml IVPB 04/04/23 10:29 Infused Q24H LUX Infusion Albumin Human 50 mls @ 999 mls/hr 03/29/23 11:56 Albutein IVPB 04/28/23 11:55 Q10M PRN HYPOTENSION Cefazolin Sodium 2 gm in 50 mls @ 100 mls/hr 04/04/23 11:00 Ancef 2 Gm/D5w 50 Ml IVPB 04/04/23 11:29 ONCE ONE Insulin Aspart 1 - 3 units 03/28/23 21:00 04/03/23 20:46 Insulin Aspart (*Bkc) 100 Units/Ml SUB-Q 2 units HS LUX Administration Protocol Insulin Aspart 3 - 6 units 03/28/23 08:00 04/04/23 08:28 Insulin Aspart (*Bkc) 100 Units/Ml SUB-Q Not Given TIDWM LUX Protocol Miconazole Nitrate 1 applic 04/03/23 11:00 04/03/23 20:39 Miconazole 2% Antifungal Ointment 56 Gm TOPICAL 1 applic Q12HR LUX Administration Ondansetron HCl 4 mg 03/29/23 12:53 Ondansetron Inj 4 Mg/2 Ml Vial IV PUSH
[2023-04-04] MEDS: CEFEPIME 1 GM/NS 50 ML 1 GM/50 ML BAG IVPB (09:38)
[2023-04-04] MEDS: SERTRALINE HCL 25 MG TABLET PO (09:38)
[2023-04-04] MEDS: buPROPion HCL 75 MG TABLET PO ×2 (09:38→21:35)
--- NOTE | 2023-04-04 11:48 | PM.PNNEP ---
Progress Note: A&P Assessment and Plan (1) VISHNU (acute kidney injury): Code(s): N17.9 - Acute kidney failure, unspecified Status: Acute Assessment and Plan: as noted by trend of labs since admission (and previous admissions/hospitalizations) rather than VISHNU, I suspect this is just progression of his known CKD inititated on ASTROBIOLOGIST/dialysis unable to do DUF/HD due to lack of access currently Surgery to place tunneled HD catheter today resume dialysis once HD catheter in place (2) Chronic kidney disease, stage IV (severe): Code(s): N18.4 - Chronic kidney disease, stage 4 (severe) Status: Acute Assessment and Plan: creatinine ~ 4.0 - 4.5mg/dl during last hospitalization -- assumption was this was his new baseline follows with Dr. Davis Ny for CKD management suspect due to HTN, DM, vascular disease, and age-related change (3) Volume overload: Code(s): E87.70 - Fluid overload, unspecified Status: Acute Assessment and Plan: as evidenced by physical exam and imaging studies he has gained almost 60+ pounds since last hospitalization about 11L negative with HD/DUF continue getting rid of the fluid with dialysis (4) Diastolic congestive heart failure: Code(s): I50.30 - Unspecified diastolic (congestive) heart failure Status: Acute Assessment and Plan: fluid status worse at this time more so due to renal dysfunction fluid removal with dialysis as tolerated still with swelling and some shortness of breath (5) Anemia: Code(s): D64.9 - Anemia, unspecified Status: Chronic Assessment and Plan: adequate iron stores by anemia studies getting Epogen with dialysis follow trend of H/H (6) Diabetes mellitus with chronic kidney disease: Code(s): E11.22 - Type 2 diabetes mellitus with diabetic chronic kidney disease Status: Chronic Assessment and Plan: follow accu-cheks glycemic control per hospitalists Will continue to follow. Subjective Date/time seen: 04/04/23 11:48 Interval history: Follow-up for acute kidney injury on chronic kidney disease versus progression of chronic kidney disease. Seen by Surgery and tentatively on schedule today for tunneled HD catheter placement; no apparent distress voiced at the time of my visit; no issues/evetns overnight or earlier this AM. Exam Narrative: General: ill appearing and elderly male in NAD Heart: normal S1 and S2; no rub or gallop Lungs: decreased breath sounds at the bases. Abdomen: soft, nontender, nondistended, positive bowel sounds Extremities: no cyanosis or clubbing, 2+ bilateral edema Skin: no rash Objective Data Vital Signs Vital Signs: Vital Signs Temp Pulse Resp BP Pulse Ox O2 Del Method O2 Flow Rate 04/04/23 11:39 98.7 F 74 18 149/56 H 95 04/04/23 08:00 92 Nasal Cannula 5 04/04/23 07:00 97.9 F 75 16 167/63 H 92 04/04/23 04:00 72 04/04/23 03:01 65 11 L CPAP 04/03/23 22:20 69 12 97 CPAP 04/04/23 01:07 97.7 F 75 16 174/64 H 92 04/04/23 00:00 73 04/03/23 20:00 94 Nasal Cannula 4 04/03/23 20:00 93 04/03/23 20:49 97.7 F 84 16 175/64 H 90 04/03/23 20:38 92 Nasal Cannula 4 04/03/23 16:00 97.3 F L 82 18 157/65 H 93 04/03/23 16:03 88 Intake/Output Intake/Output: Intake & Output 04/01/23 04/02/23 04/03/23 04/04/23 23:59 23:59 23:59 23:59 Intake Total 50 528 1130 100 Output Total 300 4250 600 100 Balance -250 -3722 530 0 Meds/Results Medications: Active Medications Generic Name Dose Route Start Last Admin Trade Name Mark PRN Reason Stop Dose Admin Acetaminophen 650 mg 04/03/23 22:31 Acetaminophen 325 Mg Tablet PO Q4H PRN Pain Bupropion HCl 75 mg 03/27/23 23:05 04/04/23 09:38 Bupropion Hcl 75 Mg Tablet PO 75 mg Q12HR LUX Administration Dextrose 12.5 gm 0
--- NOTE | 2023-04-04 11:48 | P.PNNP_ITS ---
Progress Note: A&P Assessment and Plan (1) VISHNU (acute kidney injury): Code(s): N17.9 - Acute kidney failure, unspecified Status: Acute Assessment and Plan: * as noted by trend of labs since admission (and previous admissions/hospitalizations) * rather than VISHNU, I suspect this is just progression of his known CKD * inititated on SEWAGE RETICULATION DRAFTING OFFICER/dialysis * unable to do DUF/HD due to lack of access currently * Surgery to place tunneled HD catheter today * resume dialysis once HD catheter in place (2) Chronic kidney disease, stage IV (severe): Code(s): N18.4 - Chronic kidney disease, stage 4 (severe) Status: Acute Assessment and Plan: * creatinine ~ 4.0 - 4.5mg/dl during last hospitalization -- assumption was this was his new baseline * follows with Dr. Davis Ny for CKD management * suspect due to HTN, DM, vascular disease, and age-related change (3) Volume overload: Code(s): E87.70 - Fluid overload, unspecified Status: Acute Assessment and Plan: * as evidenced by physical exam and imaging studies * he has gained almost 60+ pounds since last hospitalization * about 11L negative with HD/DUF * continue getting rid of the fluid with dialysis (4) Diastolic congestive heart failure: Code(s): I50.30 - Unspecified diastolic (congestive) heart failure Status: Acute Assessment and Plan: * fluid status worse at this time more so due to renal dysfunction * fluid removal with dialysis as tolerated * still with swelling and some shortness of breath (5) Anemia: Code(s): D64.9 - Anemia, unspecified Status: Chronic Assessment and Plan: * adequate iron stores by anemia studies * getting Epogen with dialysis * follow trend of H/H (6) Diabetes mellitus with chronic kidney disease: Code(s): E11.22 - Type 2 diabetes mellitus with diabetic chronic kidney disease Status: Chronic Assessment and Plan: * follow accu-cheks * glycemic control per hospitalists Will continue to follow. Subjective Date/time seen: 04/04/23 11:48 Interval history: Follow-up for acute kidney injury on chronic kidney disease versus progression of chronic kidney disease. Seen by Surgery and tentatively on schedule today for tunneled HD catheter placement; no apparent distress voiced at the time of my visit; no issues/evetns overnight or earlier this AM. Exam Narrative: General: ill appearing and elderly male in NAD Heart: normal S1 and S2; no rub or gallop Lungs: decreased breath sounds at the bases. Abdomen: soft, nontender, nondistended, positive bowel sounds Extremities: no cyanosis or clubbing, 2+ bilateral edema Skin: no rash Objective Data Vital Signs Vital Signs: Vital Signs Temp Pulse Resp BP Pulse Ox O2 Del Method O2 Flow Rate 04/04/23 11:39 98.7 F 74 18 149/56 H 95 04/04/23 08:00 92 Nasal Cannula 5 04/04/23 07:00 97.9 F 75 16 167/63 H 92 04/04/23 04:00 72 04/04/23 03:01 65 11 L CPAP 04/03/23 22:20 69 12 97 CPAP 04/04/23 01:07 97.7 F 75 16 174/64 H 92 04/04/23 00:00 73 04/03/23 20:00 94 Nasal Cannula 4 04/03/23 20:00 93 04/03/23 20:49 97.7 F 84 16 175/64 H 90 04/03/23 20:38 92 Nasal Cannula 4 04/03/23 16:00 97.3 F L
[2023-04-04 11:59] LABS: Glucose Point of Care 169 mg/dl (65-105)
[2023-04-04] MEDS: SODIUM CHLORIDE 0.9% IV 500 ML 30 ML IV CONT (12:50)
--- NOTE | 2023-04-04 12:53 | P.PNIM_ITS ---
Progress Note: A&P Assessment and Plan (1) Acute on chronic kidney failure: Code(s): N17.9 - Acute kidney failure, unspecified; N18.9 - Chronic kidney disease, unspecified Status: Acute (2) Volume overload: Code(s): E87.70 - Fluid overload, unspecified Status: Acute (3) Bradycardia: Code(s): R00.1 - Bradycardia, unspecified Status: Acute (4) Hypothermia: Code(s): T68.XXXA - Hypothermia, initial encounter Status: Acute (5) Diastolic congestive heart failure: Code(s): I50.30 - Unspecified diastolic (congestive) heart failure Status: Acute (6) Chronic anemia: Code(s): D64.9 - Anemia, unspecified Status: Acute (7) Hypertension: Qualifiers: Hypertension type: primary hypertension Qualified Code(s): I10 - Essential (primary) hypertension Code(s): I10 - Essential (primary) hypertension Status: Chronic (8) Obstructive sleep apnea: Code(s): G47.33 - Obstructive sleep apnea (adult) (pediatric) Status: Acute (9) Insulin dependent diabetes mellitus: Status: Acute (10) Community acquired pneumonia due to Haemophilus influenzae: Code(s): J14 - Pneumonia due to Hemophilus influenzae Status: Acute (11) Complicated UTI (urinary tract infection): Code(s): N39.0 - Urinary tract infection, site not specified Status: Acute Plan (1) Acute on chronic kidney failure: ?Code(s): N17.9 - Acute kidney failure, unspecified; N18.9 - Chronic kidney disease, unspecified ?Status:?Acute ?Assessment and Plan: Baseline creatinine seems to range between 2.0 and 3.0 however has been worsening over the past 1 month. Creatinine today is 5.70 compared to a creatinine of 4.40 just 10 days ago. His urine output has dropped off. unfortunately pt pulled out his dialysis catheter needs new dialysis line fitted nephrology MD aware Pt needs new dialysis line inserted today (2) Volume overload: ?Code(s): E87.70 - Fluid overload, unspecified ?Status:?Acute ?Assessment and Plan: The patient has significant volume overload.?He has gained 30 kg in a month.?He has severe pitting edema up to the mid chest. CT scan shows anasarca with moderate right and small to moderate left pleural effusions, a small to moderate amount of ascites, and extensive body wall, retroperitoneal, and mesenteric edema. Blood pressures were stable on arrival but are now soft and he is unable to be diuresed. Received albumin with Lasix. His renal function is worsening Patient ends up needing dialysis to remove this fluid. Nephrology consulted, appreciate pressroom worker's consultation Patient underwent hemodialysis in past 2 days, 2>2.5 L fluid was removed.? 03/31 patient is on dialysis again pass removed 3.5 Approach to euvolemia Edema is improving receiving dialysis in hospital (3) Bradycardia: ?Code(s): R00.1 - Bradycardia, unspecified ?Status:?Acute ?Assessment and Plan: May very well be due to hypothermia and uremia. Hold carvedilol. resolves (4) Hypothermia: ?Code(s): T68.XXXA - Hypothermia, initial encounter ?Status:?Acute ?Assessment and Plan: need to rule out sepsis Blood culture and urine culture no growth so far Resolves (5) Diastolic congestive heart failure: ?Code(s): I50.30 - Unspecified diastolic (congestive) heart failure ?Status:?Acute ?Assessment and Plan: Echocardiogram last month showed a normal LV systolic function with grade 2 d
--- NOTE | 2023-04-04 13:03 | WPDANESEPPF ---
Anes - Initial Pre Proc Eval Procedure: Operation Date: 04/04/23 12:15 Proposed Procedures p Insertion Duraflow Permacath Dialysis Tunneled Dialysis Catheter - Roman Hdz DO Date/Time: 04/04/23 13:03 Surgeon: Nevin Castillo DO Pre Op Diagnosis: VISHNU/Volume Overload Patient Data Age: 77 Gender: M Height: 1.75 m Weight: 107.7 kg Last Vital Signs Temp 37.1 C 04/04/23 11:39 Pulse 74 04/04/23 11:39 Resp 18 04/04/23 11:39 BP 149/56 H 04/04/23 11:39 Pulse Ox 95 04/04/23 11:39 O2 Del Method Nasal Cannula 04/04/23 08:00 O2 Flow Rate 5 04/04/23 08:00 FiO2 45 04/02/23 02:00 Allergies Allergy/AdvReac Type Severity Reaction Status Date / Time LAUREN Inhibitors Allergy Cough Verified 02/18/23 20:49 enalapril Allergy Cough Verified 02/18/23 20:49 lisinopril Allergy Cough Verified 02/18/23 20:49 quinapril Allergy Cough Verified 02/18/23 20:49 Home Medications Medication Instructions Recorded Confirmed Type aspirin 81 mg chewable tablet 81 mg PO DAILY@0800 #30 tabs 11/22/22 03/29/23 Rx (Children's Aspirin) bupropion HCl 75 mg tablet 75 mg PO Q12HR #60 tabs 11/22/22 03/29/23 Rx calcium carbonate 500 mg-vitamin 1 tablet PO DAILY@0800 #30 tabs 11/22/22 03/29/23 Rx D3 5 mcg (200 unit) tablet (Oyster Shell Calcium-Vitamin D3) ropinirole 0.5 mg tablet 0.5 mg PO HS #30 tabs 11/22/22 03/29/23 Rx sertraline 50 mg tablet (Zoloft) 25 mg PO QAM #30 tabs 11/22/22 03/29/23 Rx carvedilol 12.5 mg tablet (Coreg) 25 mg PO Q12HR 11/27/22 03/29/23 History gabapentin 100 mg capsule 100 mg PO BID 11/27/22 03/29/23 History pantoprazole 40 mg tablet,delayed 40 mg PO .THREE TIMES WEEKLY 01/13/23 03/29/23 History release meclizine 12.5 mg tablet 12.5 mg PO TID PRN dizziness #14 02/12/23 03/29/23 Rx tabs amlodipine 10 mg tablet 10 mg PO DAILY 02/18/23 03/29/23 History insulin lispro 100 unit/mL 8 unit (0.08 mL) subcut TIDWM #10 02/22/23 03/29/23 Rx subcutaneous solution (Humalog mL U-100 Insulin) hydralazine 25 mg tablet 25 mg PO TID #90 tabs 03/04/23 03/29/23 Rx hydrochlorothiazide 25 mg tablet 25 mg PO QAM #30 tabs 03/04/23 03/29/23 Rx insulin glargine 100 unit/mL (3 15 unit subcut DAILY 03/23/23 03/29/23 History mL) subcutaneous pen (Lantus Solostar U-100 Insulin) Laboratory Tests 04/02/23 04/03/23 04/03/23 07:57 16:57 20:42 WBC RBC Hgb Hct MCV MCH MCHC RDW Plt Count MPV Immature Gran % (Auto) Neut % (Auto) Lymph % (Auto) [place] % (Auto) Eos % (Auto) Baso % (Auto) Lymph # (Auto) [place] # (Auto) Eos # (Auto) Baso # (Auto) Abs Immat Gran (auto) Absolute Neuts (auto) Absolute Nucleated RBC Nucleated RBC % Platelet Estimate Hypochromasia Poikilocytosis Anisocytosis Macrocytosis Schistocytes PT INR Sodium Potassium Chloride Carbon Dioxide Anion Gap BUN Creatinine Estim Creat Clear Calc Estimated GFR Glucose POC Capillary Glucose 190 H mg/dl 288 H mg/dl 288 H mg/dl (65-105) (65-105) (65-105) Calcium Total Bilirubin AST ALT Alkaline Phosphatase Total Protein Albumin 04/04/23 04/04/23 04/04/23 05:55 08:19 11:51 WBC 8.6 K/mm3 (4.5-10.0) RBC 2.49 L M/mm3 (4.6-6.20) Hgb 8.3 L g/dL (14.0-18.0) Hct 28.4 L % (42.0-52.0) MCV 114.1 H fl (80-100) MCH 33.3 pg (26-34) MCHC 29.2 L g/dl
[2023-04-04 13:13] LABS: Glucose Point of Care 176 mg/dl (65-105)
[2023-04-04] MEDS: ceFAZolin 2 GM/D5W 50 ML 2 GM/50 ML BAG IVPB (13:46)
[2023-04-04] MEDS: LIDO 1%/EPINEPHRINE 1:100,000 50 ML VIAL 10 ML INFILTRATE (14:15)
[2023-04-04] MEDS: HEPARIN SODIUM, PORCINE 10,000 UNITS/10 ML VIAL 10000 UNITS XX (14:16)
--- NOTE | 2023-04-04 14:37 | P.OP_ITS ---
Procedure Note - Detailed Date of Procedure 04/04/23 Pre-op Diagnosis Acute/Chronic renal failure Post-op Diagnosis Same Procedure Performed Right internal jugular tunneled dialysis catheter placement using ultrasound and fluoroscopic guidance Surgeon Roman Hdz, DO Anesthesia MAC and Local (1% lidocaine with epinephrine) Indications Acute/chronic renal failure. Patient has been on hemodialysis through a temporary right subclavian dialysis catheter. This was just recently removed in preparation for tunneled dialysis catheter. Findings Ultrasound guidance was used to identify the right internal jugular vein. This was identified as a compressible vessel just lateral to the pulsatile carotid artery. The 18 gauge introducer needle was advanced under ultrasound guidance and then the guidewire was advanced under fluoroscopic guidance. Fluoroscopy was then used to guide advancement of the dilators followed by the sheath. The final fluoroscopic images demonstrated the catheter tip in the distal SVC and no kinks along its path. Description of Procedure Procedure as well as risks, benefits, and alternatives were discussed with patient. Written consent was obtained and placed in chart prior to procedure. Patient was brought back to surgical suite. Placed supine on operating table. Time-out was done confirm patient procedure. IV sedation was then administered by the Anesthesia Department. His chest and neck area was prepped and draped in sterile fashion using chlorhexidine prep. Patient was placed in Trendelenburg position. SonoSite ultrasound was used to identify the right internal jugular vein. It was visualized as a compressible vessel just lateral to the carotid artery. 1% lidocaine with epinephrine was infiltrated directly over the vessel under ultrasound guidance. An 18 gauge introducer needle was then advanced under ultrasound guidance directly into the right internal jugular vein. Dark nonpulsatile blood was aspirated. A 0.035 in guidewire was then advanced t hrough the needle under fluoroscopic guidance. The guidewire was visualized advancing all the way down into the superior vena cava. 1% lidocaine with epinephrine was then infiltrated on the right anterior chest and along the tract up to the guidewire insertion site. A 5 mm incision was made with a 15 blade scalpel. A small freda incision was then also made at the insertion site at the neck. The tunneler was then advanced from the chest incision up to the neck incision and the catheter tubing was brought up through this tract. The dilator and sheath were then advanced over the guidewire under fluoroscopic visualization. The dilator and guidewire were then removed leaving the sheath in place. The catheter tubing was then advanced through the sheath under fluoroscopic guidance. The sheath was unsnapped and carefully peeled away. The catheter tubing was released underneath the neck incision. Fluoroscopy was used to confirm proper placement of the catheter tubing and no kinks along its path. The catheter was then hep-locked with Hep-Lock solution. The skin of the incisions was then approximated using 4-0 Monocryl subcuticular suture. Exofin glue was then applied at the neck incision and 2x2 gauze and Tegaderm drassing applied at the chest. The patient was then awakened from anesthesia and transferred to recovery. Implants 28 cm DuraFlow2 dialysis catheter Estimated Blood Loss 50 Urine Output 150 Complications No immediate complications Condition Stable Disposition Floor [facility] - Charge Forward: [facility]
[2023-04-04 15:16] LABS: Glucose Point of Care 172 mg/dl (65-105)
--- NOTE | 2023-04-04 15:35 | PC.NURSE ---
Returned from OR per bed. Report received from Charlie.
[2023-04-04 16:40] LABS: Glucose Point of Care 186 mg/dl (65-105)
[2023-04-04] MEDS: rOPINIRole HCL 0.5 MG TABLET PO (21:35)
[2023-04-05] VITALS (27 sets, daily range): BP systolic 149–201; BP diastolic 64–88; PULSE 76–90; RESP 16–20; TEMP 35.8–36.9; O2SAT 93–98; BMI 10.0
[2023-04-05 03:12] LABS: Glucose Point of Care 199 mg/dl (65-105)
[2023-04-05 05:35] LABS: Hematocrit 28.2 % (42.0-52.0); Hemoglobin 8.2 g/dL (14.0-18.0); Mean Corpuscular HGB Conc 29.1 g/dl (32-36); Mean Corpuscular Hemoglobin 32.4 pg (26-34); Mean Corpuscular Volume 111.5 fl (80-100); Mean Platelet Volume 11.3 fl (7.4-10.4); Platelet Count Result 168 k/mm3 (150-375); Red Blood Count 2.53 M/mm3 (4.6-6.20); Red Cell Distribution Width 20.3 % (11.5-14.5); White Blood Count 8.1 K/mm3 (4.5-10.0)
[2023-04-05 05:53] LABS: Anion Gap 8 mmol/L (8-16); Blood Urea Nitrogen 57 mg/dL (9-20); Calcium 7.7 mg/dL (8.4-10.2); Carbon Dioxide 23 mmol/L (22-30); Chloride 106 mmol/L (98-107); Estimated CRCL calculation 13 ml/min; Estimated Glomerular Filt Rate 10; Glucose 191 mg/dL (65-110); Potassium 4.8 mmol/L (3.4-5.0); Sodium 137 mmol/L (137-145)
--- NOTE | 2023-04-05 08:20 | PCOTNOTE ---
The patient treatment was not able to be completed. [place] [facility] attempted to find patient recliner for his room. Upon arrival back to the room Patient to be going to HD in 10 minutes. Will attempted later this date if appropriate. Will plan to continue treatment per plan of care.
[2023-04-05 08:24] LABS: Glucose Point of Care 198 mg/dl (65-105)
[2023-04-05] MEDS: EPOETIN ALFA 10,000 UNITS/ML VIAL 10000 UNITS IV PUSH (10:35)
--- NOTE | 2023-04-05 10:45 | PM.PNNEP ---
Progress Note: A&P Assessment and Plan (1) VISHNU (acute kidney injury): Code(s): N17.9 - Acute kidney failure, unspecified Status: Acute Assessment and Plan: as noted by trend of labs since admission (and previous admissions/hospitalizations) rather than VISHNU, I suspect this is just progression of his known CKD inititated on QUANTITATIVE RESEARCHER/dialysis resume dialysis today since HD catheter in place (2) Chronic kidney disease, stage IV (severe): Code(s): N18.4 - Chronic kidney disease, stage 4 (severe) Status: Acute Assessment and Plan: creatinine ~ 4.0 - 4.5mg/dl during last hospitalization -- assumption was this was his new baseline follows with Dr. Davis Ny for CKD management suspect due to HTN, DM, vascular disease, and age-related change (3) Volume overload: Code(s): E87.70 - Fluid overload, unspecified Status: Acute Assessment and Plan: as evidenced by physical exam and imaging studies he has gained almost 60+ pounds since last hospitalization about 11L negative with HD/DUF continue getting rid of the fluid with dialysis (4) Diastolic congestive heart failure: Code(s): I50.30 - Unspecified diastolic (congestive) heart failure Status: Acute Assessment and Plan: fluid status worse at this time more so due to renal dysfunction fluid removal with dialysis as tolerated still with swelling and some shortness of breath (5) Anemia: Code(s): D64.9 - Anemia, unspecified Status: Chronic Assessment and Plan: adequate iron stores by anemia studies getting Epogen with dialysis follow trend of H/H (6) Diabetes mellitus with chronic kidney disease: Code(s): E11.22 - Type 2 diabetes mellitus with diabetic chronic kidney disease Status: Chronic Assessment and Plan: follow accu-cheks glycemic control per hospitalists Will continue to follow. Subjective Date/time seen: 04/05/23 10:45 Interval history: Follow-up for acute kidney injury on chronic kidney disease versus progression of chronic kidney disease. Tolerating hemodialysis treatment at the time of my visit (seen on HD at 10:35AM); s/p tunneled HD catheter placement yesterday afternoon and tolerated this intervention as well; still sleepy/lethargic when seen but no apparent distress; no issues/events overnight or earlier this AM. Exam Narrative: General: ill appearing and elderly male in NAD Heart: normal S1 and S2; no rub or gallop Lungs: decreased breath sounds at the bases. Abdomen: soft, nontender, nondistended, positive bowel sounds Extremities: no cyanosis or clubbing, 2+ bilateral edema Skin: no nodules Objective Data Vital Signs Vital Signs: Vital Signs Temp Pulse Resp BP Pulse Ox O2 Del Method O2 Flow Rate 04/05/23 10:20 87 199/88 H 04/05/23 10:00 87 198/85 H 04/05/23 09:40 76 192/81 H 04/05/23 09:20 88 194/86 H 04/05/23 08:59 84 193/85 H 04/05/23 08:54 98.4 F 86 18 199/87 H 04/05/23 08:54 6 04/05/23 08:00 96.5 F L 79 20 166/64 H 94 04/05/23 06:00 97.3 F L 76 16 149/73 H 94 04/05/23 04:00 84 04/05/23 00:00 81 04/04/23 23:10 66 92 High Flow Nasal Cannula 5 04/04/23 23:05 66 93 High Flow Nasal Cannula 04/04/23 20:00 86 04/04/23 20:35 97.0 F L 87 18 160/71 H 96 04/04/23 18:38 94 High Flow Therapy with Na 6 04/04/23 17:25 97.5 F L 77 18 173/72 H 94 04/04/23 16:00 76 04/04/23 12:00 71 04/04/23 16:25 97.0 F L 75 18 165/73 H 95 04/04/23 15:55 97.0 F L 79 18 164/63 H 94 04/04/23 15:40 97.0 F L 73 18 149/84 H 97 04/04/23 16:00 97.0 F L 79 18 164/63 H 94 04/04/23 15:22 74 14 181/72 H 92 High Flow Therapy with Na 6 04/04/23 15:06 73 12 172/71 H 91 High Flow Therapy with Na 6 04/04/23 14:53 72 12 155/69 H 90 High
--- NOTE | 2023-04-05 10:45 | P.PNNP_ITS ---
Progress Note: A&P Assessment and Plan (1) VISHNU (acute kidney injury): Code(s): N17.9 - Acute kidney failure, unspecified Status: Acute Assessment and Plan: * as noted by trend of labs since admission (and previous admissions/hospitalizations) * rather than VISHNU, I suspect this is just progression of his known CKD * inititated on [employer] SERVICES MANAGER/dialysis * resume dialysis today since HD catheter in place (2) Chronic kidney disease, stage IV (severe): Code(s): N18.4 - Chronic kidney disease, stage 4 (severe) Status: Acute Assessment and Plan: * creatinine ~ 4.0 - 4.5mg/dl during last hospitalization -- assumption was this was his new baseline * follows with Dr. Davis Ny for CKD management * suspect due to HTN, DM, vascular disease, and age-related change (3) Volume overload: Code(s): E87.70 - Fluid overload, unspecified Status: Acute Assessment and Plan: * as evidenced by physical exam and imaging studies * he has gained almost 60+ pounds since last hospitalization * about 11L negative with HD/DUF * continue getting rid of the fluid with dialysis (4) Diastolic congestive heart failure: Code(s): I50.30 - Unspecified diastolic (congestive) heart failure Status: Acute Assessment and Plan: * fluid status worse at this time more so due to renal dysfunction * fluid removal with dialysis as tolerated * still with swelling and some shortness of breath (5) Anemia: Code(s): D64.9 - Anemia, unspecified Status: Chronic Assessment and Plan: * adequate iron stores by anemia studies * getting Epogen with dialysis * follow trend of H/H (6) Diabetes mellitus with chronic kidney disease: Code(s): E11.22 - Type 2 diabetes mellitus with diabetic chronic kidney disease Status: Chronic Assessment and Plan: * follow accu-cheks * glycemic control per hospitalists Will continue to follow. Subjective Date/time seen: 04/05/23 10:45 Interval history: Follow-up for acute kidney injury on chronic kidney disease versus progression of chronic kidney disease. Tolerating hemodialysis treatment at the time of my visit (seen on HD at 10:35AM); s/p tunneled HD catheter placement yesterday afternoon and tolerated this intervention as well; still sleepy/lethargic when seen but no apparent distress; no issues/events overnight or earlier this AM. Exam Narrative: General: ill appearing and elderly male in NAD Heart: normal S1 and S2; no rub or gallop Lungs: decreased breath sounds at the bases. Abdomen: soft, nontender, nondistended, positive bowel sounds Extremities: no cyanosis or clubbing, 2+ bilateral edema Skin: no nodules Objective Data Vital Signs Vital Signs: Vital Signs Temp Pulse Resp BP Pulse Ox O2 Del Method O2 Flow Rate 04/05/23 10:20 87 199/88 H 04/05/23 10:00 87 198/85 H 04/05/23 09:40 76 192/81 H 04/05/23 09:20 88 194/86 H 04/05/23 08:59 84 193/85 H 04/05/23 08:54 98.4 F 86 18 199/87 H 04/05/23 08:54 6 04/05/23 08:00 96.5 F L 79 20 166/64 H 94 04/05/23 06:00 97.3 F L 76 16 149/73 H 94 04/05/23 04:00 84 04/05/23 00:00 81 04/04/23 23:10 66 92 High Flow Nasal Cannula 5 04/04/23 23:05 66 93 High Flow Na
--- NOTE | 2023-04-05 11:36 | PCPTNOTE ---
The patient treatment was not able to be completed on 04/05/2023 this morning due to patient out of room for dialysis. Will plan to continue treatment per plan of care.
--- NOTE | 2023-04-05 12:07 | PM.IMPN ---
Progress Note: A&P Assessment and Plan (1) Acute on chronic kidney failure: Code(s): N17.9 - Acute kidney failure, unspecified; N18.9 - Chronic kidney disease, unspecified Status: Acute (2) Volume overload: Code(s): E87.70 - Fluid overload, unspecified Status: Acute (3) Bradycardia: Code(s): R00.1 - Bradycardia, unspecified Status: Acute (4) Hypothermia: Code(s): T68.XXXA - Hypothermia, initial encounter Status: Acute (5) Diastolic congestive heart failure: Code(s): I50.30 - Unspecified diastolic (congestive) heart failure Status: Acute (6) Chronic anemia: Code(s): D64.9 - Anemia, unspecified Status: Acute (7) Hypertension: Qualifiers: Hypertension type: primary hypertension Qualified Code(s): I10 - Essential (primary) hypertension Code(s): I10 - Essential (primary) hypertension Status: Chronic (8) Obstructive sleep apnea: Code(s): G47.33 - Obstructive sleep apnea (adult) (pediatric) Status: Acute (9) Insulin dependent diabetes mellitus: Status: Acute (10) Community acquired pneumonia due to Haemophilus influenzae: Code(s): J14 - Pneumonia due to Hemophilus influenzae Status: Acute (11) Complicated UTI (urinary tract infection): Code(s): N39.0 - Urinary tract infection, site not specified Status: Acute Plan (1) Acute on chronic kidney failure: ?Code(s): N17.9 - Acute kidney failure, unspecified; N18.9 - Chronic kidney disease, unspecified ?Status:?Acute ?Assessment and Plan: Baseline creatinine seems to range between 2.0 and 3.0 however has been worsening over the past 1 month. Creatinine today is 5.70 compared to a creatinine of 4.40 just 10 days ago. His urine output has dropped off. Sp new dialysis catheter continue dialysis in hospital nephrology rounding (2) Volume overload: ?Code(s): E87.70 - Fluid overload, unspecified ?Status:?Acute ?Assessment and Plan: The patient has significant volume overload.?He has gained 30 kg in a month.?He has severe pitting edema up to the mid chest. CT scan shows anasarca with moderate right and small to moderate left pleural effusions, a small to moderate amount of ascites, and extensive body wall, retroperitoneal, and mesenteric edema. Blood pressures were stable on arrival but are now soft and he is unable to be diuresed. Received albumin with Lasix. His renal function is worsening Patient ends up needing dialysis to remove this fluid. Nephrology consulted, appreciate ob/gyn physician's consultation Patient underwent hemodialysis in past 2 days, 2>2.5 L fluid was removed.? 03/31 patient is on dialysis again pass removed 3.5 Approach to euvolemia Edema is improving receiving dialysis in hospital (3) Bradycardia: ?Code(s): R00.1 - Bradycardia, unspecified ?Status:?Acute ?Assessment and Plan: May very well be due to hypothermia and uremia. Hold carvedilol. resolves (4) Hypothermia: ?Code(s): T68.XXXA - Hypothermia, initial encounter ?Status:?Acute ?Assessment and Plan: need to rule out sepsis Blood culture and urine culture no growth so far Resolves (5) Diastolic congestive heart failure: ?Code(s): I50.30 - Unspecified diastolic (congestive) heart failure ?Status:?Acute ?Assessment and Plan: Echocardiogram last month showed a normal LV systolic function with grade 2 diastolic noncompliance. significant volume overload as detailed above which is due to his worsening renal function and some part due to congestive heart failure as well. Pulmonary congestion is improving on hemodialysis (6) Chronic anemia: ?Code(s): D64.9 - Anemia, unspecified ?Status:?Acute ?Assessment and Plan: Stable No iron deficiency (7) Hypertension: ?Qualifiers: ?Hypertension type:?primary hypertension? Qualified Code(s):?I10 - Essential (prima
[2023-04-05 13:15] LABS: Glucose Point of Care 129 mg/dl (65-105)
[2023-04-05] MEDS: SERTRALINE HCL 25 MG TABLET PO (13:17)
[2023-04-05] MEDS: buPROPion HCL 75 MG TABLET PO ×2 (13:17→20:29)
--- NOTE | 2023-04-05 15:01 | PC.NURSE ---
On 04/05/23, the Licence pending nurse, Orquidea Ku, provided care and completed [facility] documentation on this patient. I have reviewed the Licence pending nurse's documentation and agree with the findings.
[2023-04-05 16:50] LABS: Glucose Point of Care 179 mg/dl (65-105)
[2023-04-05] MEDS: rOPINIRole HCL 0.5 MG TABLET PO (20:29)
[2023-04-05] MEDS: amLODIPine BESYLATE 5 MG TABLET 10 MG PO (20:29)
[2023-04-05 20:40] LABS: Glucose Point of Care 174 mg/dl (65-105)
[2023-04-06] VITALS (25 sets, daily range): BP systolic 130–160; BP diastolic 56–82; PULSE 61–89; RESP 16–20; TEMP 0–36.7; O2SAT 94–97
[2023-04-06 05:30] LABS: Hematocrit 27.9 % (42.0-52.0); Hemoglobin 8.3 g/dL (14.0-18.0); Mean Corpuscular HGB Conc 29.7 g/dl (32-36); Mean Corpuscular Hemoglobin 32.4 pg (26-34); Mean Platelet Volume 11.3 fl (7.4-10.4); Platelet Count Result 187 k/mm3 (150-375); Red Blood Count 2.56 M/mm3 (4.6-6.20); Red Cell Distribution Width 20.4 % (11.5-14.5)
[2023-04-06 05:36] LABS: Anion Gap 8 mmol/L (8-16); Blood Urea Nitrogen 36 mg/dL (9-20); Calcium 7.7 mg/dL (8.4-10.2); Carbon Dioxide 24 mmol/L (22-30); Chloride 104 mmol/L (98-107); Estimated CRCL calculation 17 ml/min; Estimated Glomerular Filt Rate 15; Glucose 189 mg/dL (65-110); Potassium 4.2 mmol/L (3.4-5.0); Sodium 136 mmol/L (137-145)
--- NOTE | 2023-04-06 08:07 | PM.IMPN ---
Progress Note: A&P Assessment and Plan (1) Acute on chronic kidney failure: Qualifiers: Acute renal failure type: unspecified Code(s): N17.9 - Acute kidney failure, unspecified; N18.9 - Chronic kidney disease, unspecified Status: Acute Assessment and Plan: CKD with baseline Cr 2.0-3.0. -permcath placed for HD -has been receiving daily HD -removed trialysis catheter a couple of days ago so PermCath was placed 04/05. -Anasarca seems to be resolving. Still with pitting edema to BUE. (2) Volume overload: Code(s): E87.70 - Fluid overload, unspecified Status: Acute Assessment and Plan: see above (3) Bradycardia: Code(s): R00.1 - Bradycardia, unspecified Status: Acute Assessment and Plan: Believed to be related to hypothermia. Now normothermic and resolved SBP in the 80's -restart coreg (4) Hypothermia: Code(s): T68.XXXA - Hypothermia, initial encounter Status: Acute Assessment and Plan: resolved. sepsis negative (5) Diastolic congestive heart failure: Qualifiers: Heart failure chronicity: acute on chronic Qualified Code(s): I50.33 - Acute on chronic diastolic (congestive) heart failure Code(s): I50.30 - Unspecified diastolic (congestive) heart failure Status: Acute Assessment and Plan: Echo from 02/2023 shows EF with 50-55%. LV grade II diastolic dysfunction Restart home medications (6) Chronic anemia: Code(s): D64.9 - Anemia, unspecified Status: Acute Assessment and Plan: likely related to chronic disease MCV 109 MCHC 29.7 (7) Hypertension: Qualifiers: Hypertension type: primary hypertension Qualified Code(s): I10 - Essential (primary) hypertension Code(s): I10 - Essential (primary) hypertension Status: Chronic Assessment and Plan: Initially hypotensive on admission, now SBP 150s-190's -will restart amlodipine, hydrochlorothiazide, and hydralazine (8) Obstructive sleep apnea: Code(s): G47.33 - Obstructive sleep apnea (adult) (pediatric) Status: Acute Assessment and Plan: Cpap ordered with home settings On home o2 at 3 L NC (9) Insulin dependent diabetes mellitus: Status: Acute Assessment and Plan: HgbA1c 7.9 in 01/2023 -accu checks -sliding scale (10) Community acquired pneumonia due to Haemophilus influenzae: Code(s): J14 - Pneumonia due to Hemophilus influenzae Status: Acute Assessment and Plan: completed treatment with cefepime and vancomycin (11) Complicated UTI (urinary tract infection): Code(s): N39.0 - Urinary tract infection, site not specified Status: Acute Assessment and Plan: completed treatment with cefepime Subjective Date/time seen: 04/06/23 08:07 Interval history: This is a 77-year-old gentleman with PMH of HTN, insulin-dependent diabetes, diastolic congestive heart failure, chronic anemia, with CKD who presented to the ED on 03/27 with complaints of swelling. Patient had gained 30 Kg in the last month. He was hypothermic on admission, blood pressures were soft, and he had poor urine output. His baseline Cr was 2.0-3.0 but on admission it was elevated at 5.7. He was admitted for volume overload with a nephrology consult to be initiated on HD. 04/06: Patient is seen resting in bed watching TV, he does not appear in acute distress. His is at bedside. He is alert oriented to person, place, knows the year 2022 but he thinks the month is October. states that he has been waxing and waning with his orientation and seems to be having delirious periods at night. He appears slightly short of breath to me but he says he is breathing fine. He is on oxygen 6 liters/minute nasal cannula baseline is 3 L. he still has +2 pitting edema of the bilateral upper extremities in his lungs sounds crackles present bilaterally. He denies any co
[2023-04-06 08:48] LABS: Glucose Point of Care 184 mg/dl (65-105)
[2023-04-06] MEDS: carvediloL 25 MG TABLET PO ×2 (10:03→20:15)
[2023-04-06] MEDS: hydroCHLOROthiazide 25 MG TABLET PO (10:03)
[2023-04-06] MEDS: buPROPion HCL 75 MG TABLET PO ×2 (10:03→20:15)
[2023-04-06] MEDS: SERTRALINE HCL 25 MG TABLET PO (10:03)
[2023-04-06] MEDS: amLODIPine BESYLATE 5 MG TABLET 10 MG PO (10:03)
[2023-04-06] MEDS: hydrALAZINE HCL 25 MG TABLET PO ×3 (10:03→17:15)
[2023-04-06 12:03] LABS: Glucose Point of Care 176 mg/dl (65-105)
--- NOTE | 2023-04-06 13:55 | PM.PNNEP ---
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 Davis Ny for CKD management suspect due to HTN, DM, vascular disease, and age-related change (3) Volume overload: Code(s): E87.70 - Fluid overload, unspecified Status: Acute Assessment and Plan: as evidenced by physical exam and imaging studies he has gained almost 60+ pounds since last hospitalization about 16L negative with HD/DUF continue getting rid of the fluid with dialysis DUF today plan HD tomorrow (4) Diastolic congestive heart failure: Qualifiers: Heart failure chronicity: acute on chronic Qualified Code(s): I50.33 - Acute on chronic diastolic (congestive) heart failure Code(s): I50.30 - Unspecified diastolic (congestive) heart failure Status: Acute Assessment and Plan: fluid status worse at this time more so due to renal dysfunction fluid removal with dialysis as tolerated still with swelling and some shortness of breath (5) Anemia: Code(s): D64.9 - Anemia, unspecified Status: Chronic Assessment and Plan: adequate iron stores by anemia studies getting Epogen with dialysis follow trend of H/H (6) Diabetes mellitus with chronic kidney disease: Code(s): E11.22 - Type 2 diabetes mellitus with diabetic chronic kidney disease Status: Chronic Assessment and Plan: follow accu-cheks glycemic control per hospitalists Will continue to follow. Subjective Date/time seen: 04/06/23 13:55 Interval history: Follow-up for acute kidney injury on chronic kidney disease versus progression of chronic kidney disease. Tolerated hemodialysis treatment yesterday without any issues or problems; mentation seems to be slowly improving; still with significant edema but better in general; no apparent distress voiced at the time of my visit; due for dry ultrafiltration session today for further fluid removal. Exam Narrative: General: ill appearing and elderly male in NAD Heart: normal S1 and S2; no rub Lungs: decreased breath sounds at the bases Abdomen: soft, nontender, nondistended, positive bowel sounds Extremities: no cyanosis or clubbing, 1+ bilateral edema Skin: warm and dry Objective Data Vital Signs Vital Signs: Vital Signs Temp Pulse Resp BP Pulse Ox O2 Del Method O2 Flow Rate 04/06/23 10:05 94 High Flow Nasal Cannula 6 04/06/23 12:00 64 04/06/23 08:00 89 04/06/23 13:08 98.1 F 66 16 142/56 H 94 04/06/23 10:03 70 04/06/23 10:00 97.8 F 85 17 160/62 H 96 04/06/23 04:45 97.5 F L 89 16 153/56 H 94 04/06/23 04:00 79 04/05/23 23:10 89 96 High Flow Nasal Cannula 04/06/23 00:00 83 04/05/23 20:00 82 04/06/23 00:00 97.6 F 82 18 154/82 H 95 04/05/23 20:20 96 Nasal Cannula 6 04/05/23 20:00 97.1 F L 82 18 161/65 H 96 04/05/23 17:30 98.0 F 84 18 184/74 H 94 Intake/Output Intake/Output: Intake & Output 04/03/23 04/04/23 04/05/23 04/06/23 23:59 23:59 23:59 23:59 Intake Total 1130 110 470 420 Output Total 384 580 9758 Balance 465 -505 -2394 420 Meds/Results Medications: Active Medications Generic Name Dose Route Start Last Admin Trade Name Freq PRN Reason Stop Dose Admin Acetaminophen 650
--- NOTE | 2023-04-06 13:55 | P.PNNP_ITS ---
Progress Note: A&P Assessment and Plan (1) VISHNU (acute kidney injury): Code(s): N17.9 - Acute kidney failure, unspecified Status: Acute Assessment and Plan: * as noted by trend of labs since admission (and previous admissions/hospitalizations) * rather than VISHNU, I suspect this is just progression of his known CKD * inititated on [employer]NA[employer]/dialysis * HD yesterday and plan HD tomorrow (2) Chronic kidney disease, stage IV (severe): Code(s): N18.4 - Chronic kidney disease, stage 4 (severe) Status: Acute Assessment and Plan: * creatinine ~ 4.0 - 4.5mg/dl during last hospitalization -- assumption was this was his new baseline * follows with Dr. Davis Ny for CKD management * suspect due to HTN, DM, vascular disease, and age-related change (3) Volume overload: Code(s): E87.70 - Fluid overload, unspecified Status: Acute Assessment and Plan: * as evidenced by physical exam and imaging studies * he has gained almost 60+ pounds since last hospitalization * about 16L negative with HD/DUF * continue getting rid of the fluid with dialysis * DUF today * plan HD tomorrow (4) Diastolic congestive heart failure: Qualifiers: Heart failure chronicity: acute on chronic Qualified Code(s): I50.33 - Acute on chronic diastolic (congestive) heart failure Code(s): I50.30 - Unspecified diastolic (congestive) heart failure Status: Acute Assessment and Plan: * fluid status worse at this time more so due to renal dysfunction * fluid removal with dialysis as tolerated * still with swelling and some shortness of breath (5) Anemia: Code(s): D64.9 - Anemia, unspecified Status: Chronic Assessment and Plan: * adequate iron stores by anemia studies * getting Epogen with dialysis * follow trend of H/H (6) Diabetes mellitus with chronic kidney disease: Code(s): E11.22 - Type 2 diabetes mellitus with diabetic chronic kidney disease Status: Chronic Assessment and Plan: * follow accu-cheks * glycemic control per hospitalists Will continue to follow. Subjective Date/time seen: 04/06/23 13:55 Interval history: Follow-up for acute kidney injury on chronic kidney disease versus progression of chronic kidney disease. Tolerated hemodialysis treatment yesterday without any issues or problems; mentation seems to be slowly improving; still with significant edema but better in general; no apparent distress voiced at the time of my visit; due for dry ultrafiltration session today for further fluid removal. Exam Narrative: General: ill appearing and elderly male in NAD Heart: normal S1 and S2; no rub Lungs: decreased breath sounds at the bases Abdomen: soft, nontender, nondistended, positive bowel sounds Extremities: no cyanosis or clubbing, 1+ bilateral edema Skin: warm and dry Objective Data Vital Signs Vital Signs: Vital Signs Temp Pulse Resp BP Pulse Ox O2 Del Method O2 Flow Rate 04/06/23 10:05 94 High Flow Nasal Cannula 6 04/06/23 12:00 64 04/06/23 08:00 89 04/06/23 13:08 98.1 F 66 16 142/56 H 94 04/06/23 10:03 70 04/06/23 10:00 97.8 F 85 17 160/62 H 96 04/06/23 04:45 97.5 F L 89 16 153/56 H 94 04/06/23 04:00 79 04/05/23 23:10 89 96 High Flow Nasal Cannul
[2023-04-06 17:12] LABS: Glucose Point of Care 225 mg/dl (65-105)
[2023-04-06] MEDS: INSULIN ASPART (*BKC) 100 UNITS/ML SUB-Q (17:15)
[2023-04-06] MEDS: rOPINIRole HCL 0.5 MG TABLET PO (20:15)
[2023-04-06] MEDS: QUEtiapine FUMARATE 12.5 MG TABLET PO (20:15)
[2023-04-06] MEDS: EPOETIN ALFA 10,000 UNITS/ML VIAL 10000 UNITS IV PUSH (22:33)
[2023-04-07] VITALS (30 sets, daily range): BP systolic 118–155; BP diastolic 45–82; PULSE 59–85; RESP 16–20; TEMP 35.8–37; O2SAT 93–98
[2023-04-07 06:07] LABS: Basophils Absolute Auto 0.1 K/mm3 (0.0-0.1); Basophils Percent Auto 1.4 % (0.2-1.2); Eosinophils Absolute Auto 0.5 K/mm3 (0-0.3); Eosinophils Percent Auto 6.5 % (0-4.4); Hemoglobin 8.2 g/dL (14.0-18.0); Immature Granulocyte Absolute 0.07 K/mm3 (0.00-0.031); Immature Granulocyte Percent A 0.9 % (0-0.5); Lymphocytes Absolute Auto 0.34 K/mm3 (0.9-3.2); Lymphocytes Percent Auto 4.4 % (18.3-44.2); Mean Corpuscular HGB Conc 30.4 g/dl (32-36); Mean Corpuscular Hemoglobin 32.7 pg (26-34); Mean Corpuscular Volume 107.6 fl (80-100); Mean Platelet Volume 11.3 fl (7.4-10.4); Monocytes Absolute Auto 0.7 K/mm3 (0.1-0.6); Monocytes Percent Auto 8.4 % (2.6-8.5); Neutrophils Absolute Auto 6.1 K/mm3 (1.3-6.7); Neutrophils Percent Auto 78.4 % (45.5-73.1); Nucleated Red Blood Cells Perc 0.3 % (0.0-0.2); Platelet Count Result 201 k/mm3 (150-375); Red Blood Count 2.51 M/mm3 (4.6-6.20); Red Cell Distribution Width 20.4 % (11.5-14.5); White Blood Count 7.7 K/mm3 (4.5-10.0)
[2023-04-07 06:22] LABS: Alanine Aminotransferase 10 U/L (6-50); Albumin Level 2.9 g/dL (3.5-5.1); Alkaline Phosphatase 81 U/L (38-126); Anion Gap 6 mmol/L (8-16); Aspartate Amino Transferase 23 U/L (17-59); Bilirubin,Total 0.6 mg/dL (0.2-1.3); Blood Urea Nitrogen 44 mg/dL (9-20); Calcium 7.8 mg/dL (8.4-10.2); Carbon Dioxide 26 mmol/L (22-30); Chloride 104 mmol/L (98-107); Estimated CRCL calculation 13 ml/min; Estimated Glomerular Filt Rate 11; Glucose 160 mg/dL (65-110); Magnesium 2.2 mg/dL (1.6-2.3); Potassium 4.1 mmol/L (3.4-5.0); Sodium 136 mmol/L (137-145)
[2023-04-07 07:00] LABS: Platelet Estimate Adequate (Adequate)
[2023-04-07 07:01] LABS: Acanthocytes 1+ (NORMAL); Anisocytosis 2+ (NORMAL); Macrocytosis 1+ (NORMAL); Poikilocytosis 1+ (NORMAL); Schistocytes Rare (NORMAL)
[2023-04-07 07:12] LABS: Glucose Point of Care 181 mg/dl (65-105)
--- NOTE | 2023-04-07 08:01 | PM.IMPN ---
Progress Note: A&P Assessment and Plan (1) Acute on chronic kidney failure: Qualifiers: Acute renal failure type: unspecified Code(s): N17.9 - Acute kidney failure, unspecified; N18.9 - Chronic kidney disease, unspecified Status: Acute Assessment and Plan: CKD with baseline Cr 2.0-3.0. -removed trialysis catheter a couple of days ago so PermCath was placed 04/05. -Anasarca seems to be resolving. Edema to BUE has improved. -16 L negative with HD/DUF -Requiring 6 L NC to keep saturation > 92%. -quintanilla remains in place for accurate I&Os until euvolemia achieved. (2) Volume overload: Code(s): E87.70 - Fluid overload, unspecified Status: Acute Assessment and Plan: see above (3) Bradycardia: Code(s): R00.1 - Bradycardia, unspecified Status: Acute Assessment and Plan: Believed to be related to hypothermia. Now normothermic and resolved SBP in the 80's -restart coreg (4) Diastolic congestive heart failure: Qualifiers: Heart failure chronicity: acute on chronic Qualified Code(s): I50.33 - Acute on chronic diastolic (congestive) heart failure Code(s): I50.30 - Unspecified diastolic (congestive) heart failure Status: Acute Assessment and Plan: Echo from 02/2023 shows EF with 50-55%. LV grade II diastolic dysfunction Restart home medications (5) Chronic anemia: Code(s): D64.9 - Anemia, unspecified Status: Acute Assessment and Plan: likely related to chronic disease MCV 109 MCHC 29.7 (6) Hypertension: Qualifiers: Hypertension type: primary hypertension Qualified Code(s): I10 - Essential (primary) hypertension Code(s): I10 - Essential (primary) hypertension Status: Chronic Assessment and Plan: Initially hypotensive on admission. -will restart amlodipine, hydrochlorothiazide, and hydralazine -SBPs 130-140's/60's (7) Obstructive sleep apnea: Code(s): G47.33 - Obstructive sleep apnea (adult) (pediatric) Status: Acute Assessment and Plan: Cpap ordered with home settings On home o2 at 3 L NC (8) Insulin dependent diabetes mellitus: Status: Acute Assessment and Plan: HgbA1c 7.9 in 01/2023 -accu checks -sliding scale (9) Community acquired pneumonia due to Haemophilus influenzae: Code(s): J14 - Pneumonia due to Hemophilus influenzae Status: Acute Assessment and Plan: completed treatment with cefepime and vancomycin (10) Complicated UTI (urinary tract infection): Code(s): N39.0 - Urinary tract infection, site not specified Status: Acute Assessment and Plan: completed treatment with cefepime (11) AMS (altered mental status): Code(s): R41.82 - Altered mental status, unspecified Status: Acute Assessment and Plan: likely multifactorial with resolving uremia and now likely delirium delirium precautions recommended including keeping blinds open during the day and lights on, encouraging family at bedside, encourage routines, offer toileting ever 2 hours, and promote restful periods at night for sleep. added low dose Seroquel at HS limit sedating medications as much as possible Plan HD today Continue to wean oxygen as tolerated. Baseline is 3 L NC. Continued assessment of delirium Subjective Date/time seen: 04/07/23 08:01 Interval history: This is a 77-year-old gentleman with PMH of HTN, insulin-dependent diabetes, diastolic congestive heart failure, chronic anemia, with CKD who presented to the ED on 03/27 with complaints of swelling. Patient had gained 30 Kg in the last month. He was hypothermic on admission, blood pressures were soft, and he had poor urine output. His baseline Cr was 2.0-3.0 but on admission it was elevated at 5.7. He was admitted for volume overload with a nephrology consult to be initiated on HD. 04/06: Patient is seen resting in bed wa
[2023-04-07 08:21] LABS: Glucose Point of Care 148 mg/dl (65-105)
[2023-04-07] MEDS: buPROPion HCL 75 MG TABLET PO ×2 (08:54→20:31)
[2023-04-07] MEDS: hydroCHLOROthiazide 25 MG TABLET PO (08:54)
[2023-04-07] MEDS: hydrALAZINE HCL 25 MG TABLET PO ×3 (08:54→17:06)
[2023-04-07] MEDS: carvediloL 25 MG TABLET PO ×2 (08:54→20:32)
[2023-04-07] MEDS: amLODIPine BESYLATE 5 MG TABLET 10 MG PO (08:54)
[2023-04-07] MEDS: SERTRALINE HCL 25 MG TABLET PO (08:54)
--- NOTE | 2023-04-07 10:45 | P.PNNP_ITS ---
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 Davis Ny for CKD management * suspect due to HTN, DM, vascular disease, and age-related change (3) Volume overload: Code(s): E87.70 - Fluid overload, unspecified Status: Acute Assessment and Plan: * as evidenced by physical exam and imaging studies * he has gained almost 60+ pounds since last hospitalization * about 19L negative with HD/DUF to date * continue getting rid of the fluid with dialysis * DUF yesterday (with 4L fluid removal) * HD today for further fluid removall (4) Diastolic congestive heart failure: Qualifiers: Heart failure chronicity: acute on chronic Qualified Code(s): I50.33 - Acute on chronic diastolic (congestive) heart failure Code(s): I50.30 - Unspecified diastolic (congestive) heart failure Status: Acute Assessment and Plan: * fluid status worse at this time more so due to renal dysfunction * fluid removal with dialysis as tolerated * still with swelling and some shortness of breath * follow exam and respiratory status * check CXR in AM (5) Anemia: Code(s): D64.9 - Anemia, unspecified Status: Chronic Assessment and Plan: * adequate iron stores by anemia studies * getting Epogen with dialysis * follow trend of H/H (6) Diabetes mellitus with chronic kidney disease: Code(s): E11.22 - Type 2 diabetes mellitus with diabetic chronic kidney disease Status: Chronic Assessment and Plan: * follow accu-cheks * glycemic control per hospitalists Will continue to follow. Subjective Date/time seen: 04/07/23 10:45 Interval history: Follow-up for acute kidney injury on chronic kidney disease versus progression of chronic kidney disease. Tolerating hemodialysis treatment at the time of my visit (seen at 10:30AM); tolerated dry ultrafiltration yesterday evening with 4L fluid removal; resting comfortably currently; issues with confusion/agitation overnight and earlier this AM (reportedly pulling at quintanilla catheter as well as HD catheter); no apparent distress now. Exam Narrative: General: ill appearing and elderly male in NAD Heart: normal S1 and S2; no rub Lungs: decreased breath sounds at the bases Abdomen: soft, nontender, nondistended, positive bowel sounds Extremities: no cyanosis or clubbing, 1+ bilateral edema Skin: warm and intact Objective Data Vital Signs Vital Signs: Vital Signs Temp Pulse Resp BP Pulse Ox O2 Del Method O2 Flow Rate 04/07/23 10:40 60 145/66 H 04/07/23 10:20 63 146/70 H 04/07/23 10:00 6 04/07/23 10:00 97.4 F L 65 16
--- NOTE | 2023-04-07 10:45 | PM.PNNEP ---
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 Davis Ny for CKD management suspect due to HTN, DM, vascular disease, and age-related change (3) Volume overload: Code(s): E87.70 - Fluid overload, unspecified Status: Acute Assessment and Plan: as evidenced by physical exam and imaging studies he has gained almost 60+ pounds since last hospitalization about 19L negative with HD/DUF to date continue getting rid of the fluid with dialysis DUF yesterday (with 4L fluid removal) HD today for further fluid removall (4) Diastolic congestive heart failure: Qualifiers: Heart failure chronicity: acute on chronic Qualified Code(s): I50.33 - Acute on chronic diastolic (congestive) heart failure Code(s): I50.30 - Unspecified diastolic (congestive) heart failure Status: Acute Assessment and Plan: fluid status worse at this time more so due to renal dysfunction fluid removal with dialysis as tolerated still with swelling and some shortness of breath follow exam and respiratory status check CXR in AM (5) Anemia: Code(s): D64.9 - Anemia, unspecified Status: Chronic Assessment and Plan: adequate iron stores by anemia studies getting Epogen with dialysis follow trend of H/H (6) Diabetes mellitus with chronic kidney disease: Code(s): E11.22 - Type 2 diabetes mellitus with diabetic chronic kidney disease Status: Chronic Assessment and Plan: follow accu-cheks glycemic control per hospitalists Will continue to follow. Subjective Date/time seen: 04/07/23 10:45 Interval history: Follow-up for acute kidney injury on chronic kidney disease versus progression of chronic kidney disease. Tolerating hemodialysis treatment at the time of my visit (seen at 10:30AM); tolerated dry ultrafiltration yesterday evening with 4L fluid removal; resting comfortably currently; issues with confusion/agitation overnight and earlier this AM (reportedly pulling at quintanilla catheter as well as HD catheter); no apparent distress now. Exam Narrative: General: ill appearing and elderly male in NAD Heart: normal S1 and S2; no rub Lungs: decreased breath sounds at the bases Abdomen: soft, nontender, nondistended, positive bowel sounds Extremities: no cyanosis or clubbing, 1+ bilateral edema Skin: warm and intact Objective Data Vital Signs Vital Signs: Vital Signs Temp Pulse Resp BP Pulse Ox O2 Del Method O2 Flow Rate 04/07/23 10:40 60 145/66 H 04/07/23 10:20 63 146/70 H 04/07/23 10:00 6 04/07/23 10:00 97.4 F L 65 16 155/76 H 04/07/23 10:08 65 153/76 H 04/07/23 08:40 97 Nasal Cannula 6 04/07/23 08:40 63 04/07/23 08:54 64 04/07/23 04:16 98.3 F 61 20 139/45 L 97 04/07/23 04:00 62 04/06/23 22:30 94 Nasal Cannula 6 04/07/23 00:04 62 04/07/23 01:10 97.9 F 61 18 140/59 L 96 04/07/23 00:34 98 F 64 16 139/82 04/07/23 00:19 64 136/71 04/07/23 00:00 62 133/61 04/06/23 23:40 61 132/60 04/06/23 23:20 76 132/70 04/06/23 23:00 77 130/64 04/06/23 22:40 62 138/61
[2023-04-07] MEDS: EPOETIN ALFA 10,000 UNITS/ML VIAL 10000 UNITS IV PUSH (10:48)
[2023-04-07] MEDS: SODIUM CHLORIDE 0.9% IV 1,000 ML 999 ML IV CONT (10:49)
[2023-04-07] MEDS: MORPHINE SULFATE (*CRX) 2 MG/ML INJ IV PUSH ×2 (12:48→23:37)
[2023-04-07] MEDS: HEPARIN SODIUM 5,000 UNITS/ML VIAL 5000 UNITS SUB-Q ×2 (14:27→20:31)
[2023-04-07 17:07] LABS: Glucose Point of Care 119 mg/dl (65-105)
[2023-04-07] MEDS: QUEtiapine FUMARATE 12.5 MG TABLET PO (20:31)
[2023-04-07] MEDS: rOPINIRole HCL 0.5 MG TABLET PO (20:31)
[2023-04-07] MEDS: WATER FOR IRRIGATION, STERILE 1,000 ML BOTTLE 1000 ML (20:33)
[2023-04-07 20:41] LABS: Glucose Point of Care 165 mg/dl (65-105)
[2023-04-08] VITALS (14 sets, daily range): BP systolic 127–159; BP diastolic 42–56; PULSE 57–98; RESP 18–22; TEMP 36–36.8; O2SAT 95–98
[2023-04-08] MEDS: MORPHINE SULFATE (*CRX) 2 MG/ML INJ IV PUSH ×2 (05:25→18:55)
[2023-04-08] MEDS: HEPARIN SODIUM 5,000 UNITS/ML VIAL 5000 UNITS SUB-Q ×3 (05:31→20:14)
[2023-04-08 06:37] LABS: Basophils Absolute Auto 0.1 K/mm3 (0.0-0.1); Basophils Percent Auto 1.2 % (0.2-1.2); Eosinophils Absolute Auto 0.4 K/mm3 (0-0.3); Eosinophils Percent Auto 4.7 % (0-4.4); Hematocrit 28.1 % (42.0-52.0); Hemoglobin 8.6 g/dL (14.0-18.0); Immature Granulocyte Absolute 0.04 K/mm3 (0.00-0.031); Immature Granulocyte Percent A 0.5 % (0-0.5); Lymphocytes Absolute Auto 0.39 K/mm3 (0.9-3.2); Lymphocytes Percent Auto 5.2 % (18.3-44.2); Mean Corpuscular HGB Conc 30.6 g/dl (32-36); Mean Corpuscular Hemoglobin 33.2 pg (26-34); Mean Corpuscular Volume 108.5 fl (80-100); Mean Platelet Volume 11.5 fl (7.4-10.4); Monocytes Absolute Auto 0.6 K/mm3 (0.1-0.6); Monocytes Percent Auto 8.1 % (2.6-8.5); Neutrophils Percent Auto 80.3 % (45.5-73.1); Platelet Count Result 207 k/mm3 (150-375); Red Blood Count 2.59 M/mm3 (4.6-6.20); White Blood Count 7.5 K/mm3 (4.5-10.0)
[2023-04-08 06:42] LABS: Alanine Aminotransferase 10 U/L (6-50); Albumin Level 2.8 g/dL (3.5-5.1); Alkaline Phosphatase 82 U/L (38-126); Anion Gap 7 mmol/L (8-16); Aspartate Amino Transferase 24 U/L (17-59); Bilirubin,Total 0.7 mg/dL (0.2-1.3); Blood Urea Nitrogen 30 mg/dL (9-20); Calcium 7.5 mg/dL (8.4-10.2); Carbon Dioxide 25 mmol/L (22-30); Chloride 103 mmol/L (98-107); Estimated CRCL calculation 17 ml/min; Estimated Glomerular Filt Rate 15; Glucose 171 mg/dL (65-110); Phosphorus 3.6 mg/dL (2.5-4.5); Potassium 3.9 mmol/L (3.4-5.0); Sodium 135 mmol/L (137-145)
--- NOTE | 2023-04-08 06:46 | PM.IMPN ---
Progress Note: A&P Assessment and Plan (1) Acute on chronic kidney failure: Qualifiers: Acute renal failure type: unspecified Code(s): N17.9 - Acute kidney failure, unspecified; N18.9 - Chronic kidney disease, unspecified Status: Acute Assessment and Plan: CKD with baseline Cr 2.0-3.0. -removed trialysis catheter a couple of days ago so PermCath was placed 04/05. -Anasarca seems to be resolving. Edema to BUE has improved. -19 L negative with HD/DUF -Requiring 4 L NC to keep saturation > 92%; baseline oxygen is 3 L nc -Will d/c quintanilla (2) Volume overload: Code(s): E87.70 - Fluid overload, unspecified Status: Acute Assessment and Plan: see above (3) Bradycardia: Code(s): R00.1 - Bradycardia, unspecified Status: Acute Assessment and Plan: Believed to be related to hypothermia. Now normothermic and resolved SBP in the 80's -restart coreg (4) Diastolic congestive heart failure: Qualifiers: Heart failure chronicity: acute on chronic Qualified Code(s): I50.33 - Acute on chronic diastolic (congestive) heart failure Code(s): I50.30 - Unspecified diastolic (congestive) heart failure Status: Acute Assessment and Plan: Echo from 02/2023 shows EF with 50-55%. LV grade II diastolic dysfunction Restart home medications (5) Chronic anemia: Code(s): D64.9 - Anemia, unspecified Status: Acute Assessment and Plan: likely related to chronic disease MCV 109 MCHC 29.7 (6) Hypertension: Qualifiers: Hypertension type: primary hypertension Qualified Code(s): I10 - Essential (primary) hypertension Code(s): I10 - Essential (primary) hypertension Status: Chronic Assessment and Plan: Initially hypotensive on admission so agents were held. Now HTN. -will restart amlodipine, hydrochlorothiazide, and hydralazine -SBPs 130-140's/60's (7) Obstructive sleep apnea: Code(s): G47.33 - Obstructive sleep apnea (adult) (pediatric) Status: Acute Assessment and Plan: Cpap ordered with home settings On home o2 at 3 L NC (8) Insulin dependent diabetes mellitus: Status: Acute Assessment and Plan: HgbA1c 7.9 in 01/2023 -accu checks -sliding scale (9) Community acquired pneumonia due to Haemophilus influenzae: Code(s): J14 - Pneumonia due to Hemophilus influenzae Status: Acute Assessment and Plan: completed treatment with cefepime and vancomycin (10) Complicated UTI (urinary tract infection): Code(s): N39.0 - Urinary tract infection, site not specified Status: Acute Assessment and Plan: completed treatment with cefepime (11) AMS (altered mental status): Code(s): R41.82 - Altered mental status, unspecified Status: Acute Assessment and Plan: likely multifactorial with resolving uremia and now likely delirium delirium precautions recommended including keeping blinds open during the day and lights on, encouraging family at bedside, encourage routines, offer toileting ever 2 hours, and promote restful periods at night for sleep. added low dose Seroquel at HS limit sedating medications as much as possible Plan Continue to wean oxygen as tolerated. Baseline is 3 L NC. Continued assessment of delirium D/C quintanilla catheter Subjective Date/time seen: 04/08/23 06:46 Interval history: This is a 77-year-old gentleman with PMH of HTN, insulin-dependent diabetes, diastolic congestive heart failure, chronic anemia, with CKD who presented to the ED on 03/27 with complaints of swelling. Patient had gained 30 Kg in the last month. He was hypothermic on admission, blood pressures were soft, and he had poor urine output. His baseline Cr was 2.0-3.0 but on admission it was elevated at 5.7. He was admitted for volume overload with a nephrology consult to be initiated on HD. 04/06: Patient is seen re
[2023-04-08 08:00] LABS: Anisocytosis 1+ (NORMAL); Basophilic Stippling 1+ (NORMAL); Platelet Estimate Adequate (Adequate); Poikilocytosis 1+ (NORMAL); Schistocytes Rare (NORMAL)
[2023-04-08 08:01] LABS: Crenated RBC 1+ (NORMAL)
[2023-04-08 08:13] LABS: Glucose Point of Care 164 mg/dl (65-105)
[2023-04-08] MEDS: carvediloL 25 MG TABLET PO ×2 (08:44→20:14)
[2023-04-08] MEDS: SERTRALINE HCL 25 MG TABLET PO (08:44)
[2023-04-08] MEDS: hydrALAZINE HCL 25 MG TABLET PO ×3 (08:44→17:09)
[2023-04-08] MEDS: buPROPion HCL 75 MG TABLET PO ×2 (08:44→20:14)
[2023-04-08] MEDS: amLODIPine BESYLATE 5 MG TABLET 10 MG PO (08:44)
[2023-04-08] MEDS: hydroCHLOROthiazide 25 MG TABLET PO (08:45)
[2023-04-08 11:42] LABS: Glucose Point of Care 166 mg/dl (65-105)
--- NOTE | 2023-04-08 13:01 | PM.PNNEP ---
Progress Note: A&P Assessment and Plan (1) VISHNU (acute kidney injury): Code(s): N17.9 - Acute kidney failure, unspecified Status: Acute Assessment and Plan: as noted by trend of labs since admission (and previous admissions/hospitalizations) rather than VISHNU, I suspect this is just progression of his known CKD (but difficult to know for sure) inititated on WELDING ESTIMATOR/dialysis arrangements made of outpatient dialysis plan HD tomorrow to continue outpatient schedule of M/W/F (2) Chronic kidney disease, stage IV (severe): Code(s): N18.4 - Chronic kidney disease, stage 4 (severe) Status: Acute Assessment and Plan: creatinine ~ 4.0 - 4.5mg/dl during last hospitalization -- assumption was this was his new baseline follows with Dr. Davis Ny for CKD management suspect due to HTN, DM, vascular disease, and age-related change (3) Volume overload: Code(s): E87.70 - Fluid overload, unspecified Status: Acute Assessment and Plan: as evidenced by physical exam and imaging studies he has gained almost 60+ pounds since last hospitalization about 22L negative with HD/DUF to date fluid removal with HD as tolerated (4) Diastolic congestive heart failure: Qualifiers: Heart failure chronicity: acute on chronic Qualified Code(s): I50.33 - Acute on chronic diastolic (congestive) heart failure Code(s): I50.30 - Unspecified diastolic (congestive) heart failure Status: Acute Assessment and Plan: fluid status worse at this time more so due to renal dysfunction fluid removal with dialysis as tolerated fluid status improving follow exam and respiratory status (5) Anemia: Code(s): D64.9 - Anemia, unspecified Status: Chronic Assessment and Plan: adequate iron stores by anemia studies getting Epogen with dialysis follow trend of H/H (6) Diabetes mellitus with chronic kidney disease: Code(s): E11.22 - Type 2 diabetes mellitus with diabetic chronic kidney disease Status: Chronic Assessment and Plan: follow accu-cheks glycemic control per hospitalists Will continue to follow. Subjective Date/time seen: 04/08/23 13:01 Interval history: Follow-up for acute kidney injury on chronic kidney disease versus progression of chronic kidney disease. Tolerated hemodialysis treatment yesterday without any issue or problems; breathing/respiratory status seems stable if not better; swelling/edema has improved significantly since initiation of dialysis; mentation seems to fluctuate as yesterday during the day and evening he required a sitter as he was attempingt to pull at lines, IVs, quintanilla catheter...etc; no apparent distress noted at the time of my visit. Exam Narrative: General: ill appearing and elderly male in NAD Heart: normal S1 and S2; no rub Lungs: decreased breath sounds at the bases Abdomen: soft, nontender, nondistended, positive bowel sounds Extremities: no cyanosis or clubbing, trace bilateral edema Skin: no rash Objective Data Vital Signs Vital Signs: Vital Signs Temp Pulse Resp BP Pulse Ox O2 Del Method O2 Flow Rate 04/08/23 13:01 97.4 F L 67 22 H 159/56 H 95 04/08/23 12:00 61 04/08/23 10:00 96.8 F L 62 20 153/48 H 96 04/08/23 08:00 57 L 04/08/23 08:50 98 Nasal Cannula 6 04/08/23 08:44 98 04/08/23 04:00 62 04/08/23 03:11 97.6 F 58 L 18 128/52 L 98 04/08/23 00:00 58 L 04/07/23 23:29 97.5 F L 66 18 128/50 L 93 04/07/23 20:00 77 16 94 Nasal Cannula 6 04/07/23 20:00 77 04/07/23 21:02 94 Nasal Cannula 6 04/07/23 20:32 77 04/07/23 19:24 97.8 F 80 16 135/56 L 98 04/07/23 18:00 98.6 F 80 18 118/50 L 98 04/07/23 16:00 64 Intake/Output Intake/Output: Intake & Output 04/05/23 04/06/23 04/07/23 04/08/23 23:59 23:59 23:59 23:59 Intake
--- NOTE | 2023-04-08 13:01 | P.PNNP_ITS ---
Progress Note: A&P Assessment and Plan (1) VISHNU (acute kidney injury): Code(s): N17.9 - Acute kidney failure, unspecified Status: Acute Assessment and Plan: * as noted by trend of labs since admission (and previous admissions/hospitalizations) * rather than VISHNU, I suspect this is just progression of his known CKD (but difficult to know for sure) * inititated on APPLICATIONS SUPPORT LEAD/dialysis * arrangements made of outpatient dialysis * plan HD tomorrow to continue outpatient schedule of M/W/F (2) Chronic kidney disease, stage IV (severe): Code(s): N18.4 - Chronic kidney disease, stage 4 (severe) Status: Acute Assessment and Plan: * creatinine ~ 4.0 - 4.5mg/dl during last hospitalization -- assumption was this was his new baseline * follows with Dr. Davis Ny for CKD management * suspect due to HTN, DM, vascular disease, and age-related change (3) Volume overload: Code(s): E87.70 - Fluid overload, unspecified Status: Acute Assessment and Plan: * as evidenced by physical exam and imaging studies * he has gained almost 60+ pounds since last hospitalization * about 22L negative with HD/DUF to date * fluid removal with HD as tolerated (4) Diastolic congestive heart failure: Qualifiers: Heart failure chronicity: acute on chronic Qualified Code(s): I50.33 - Acute on chronic diastolic (congestive) heart failure Code(s): I50.30 - Unspecified diastolic (congestive) heart failure Status: Acute Assessment and Plan: * fluid status worse at this time more so due to renal dysfunction * fluid removal with dialysis as tolerated * fluid status improving * follow exam and respiratory status (5) Anemia: Code(s): D64.9 - Anemia, unspecified Status: Chronic Assessment and Plan: * adequate iron stores by anemia studies * getting Epogen with dialysis * follow trend of H/H (6) Diabetes mellitus with chronic kidney disease: Code(s): E11.22 - Type 2 diabetes mellitus with diabetic chronic kidney disease Status: Chronic Assessment and Plan: * follow accu-cheks * glycemic control per hospitalists Will continue to follow. Subjective Date/time seen: 04/08/23 13:01 Interval history: Follow-up for acute kidney injury on chronic kidney disease versus progression of chronic kidney disease. Tolerated hemodialysis treatment yesterday without any issue or problems; breathing/respiratory status seems stable if not better; swelling/edema has improved significantly since initiation of dialysis; mentation seems to fluctuate as yesterday during the day and evening he required a sitter as he was attempingt to pull at lines, IVs, quintanilla catheter...etc; no apparent distress noted at the time of my visit. Exam Narrative: General: ill appearing and elderly male in NAD Heart: normal S1 and S2; no rub Lungs: decreased breath sounds at the bases Abdomen: soft, nontender, nondistended, positive bowel sounds Extremities: no cyanosis or clubbing, trace bilateral edema Skin: no rash Objective Data Vital Signs Vital Signs: Vital Signs Temp Pulse Resp BP Pulse Ox O2 Del Method O2 Flow Rate 04/08/23 13:01 97.4 F L 67 22 H 159/56 H 95 04/08/23 12:00 61 04/08/23 10:00 96.8 F L 62 20 153/48 H 96 04/08/23 08:00 57 L 04/08/23 08:50 98 Nasal Cannu
--- NOTE | 2023-04-08 15:29 | PCPTNOTE ---
The patient treatment was not able to be completed this date due to the patient being unable to follow directions with exercises. Will continue per PT plan of care.
[2023-04-08 17:13] LABS: Glucose Point of Care 168 mg/dl (65-105)
[2023-04-08] MEDS: QUEtiapine FUMARATE 12.5 MG TABLET PO (20:14)
[2023-04-08] MEDS: rOPINIRole HCL 0.5 MG TABLET PO (20:14)
[2023-04-08] MEDS: INSULIN ASPART (*BKC) 100 UNITS/ML SUB-Q (20:19)
[2023-04-08 20:54] LABS: Glucose Point of Care 203 mg/dl (65-105)
[2023-04-09] VITALS (24 sets, daily range): BP systolic 119–146; BP diastolic 42–68; PULSE 59–84; RESP 14–20; TEMP 36–37.3; O2SAT 92–100
[2023-04-09] MEDS: HEPARIN SODIUM 5,000 UNITS/ML VIAL 5000 UNITS SUB-Q ×2 (05:12→20:16)
[2023-04-09] MEDS: MORPHINE SULFATE (*CRX) 2 MG/ML INJ IV PUSH (05:28)
[2023-04-09 06:06] LABS: Basophils Absolute Auto 0.1 K/mm3 (0.0-0.1); Basophils Percent Auto 0.8 % (0.2-1.2); Eosinophils Absolute Auto 0.4 K/mm3 (0-0.3); Eosinophils Percent Auto 5.2 % (0-4.4); Hemoglobin 8.7 g/dL (14.0-18.0); Immature Granulocyte Absolute 0.04 K/mm3 (0.00-0.031); Immature Granulocyte Percent A 0.5 % (0-0.5); Lymphocytes Absolute Auto 0.45 K/mm3 (0.9-3.2); Lymphocytes Percent Auto 5.7 % (18.3-44.2); Mean Corpuscular HGB Conc 31.1 g/dl (32-36); Mean Corpuscular Hemoglobin 32.7 pg (26-34); Mean Corpuscular Volume 105.3 fl (80-100); Mean Platelet Volume 11.5 fl (7.4-10.4); Monocytes Absolute Auto 0.6 K/mm3 (0.1-0.6); Monocytes Percent Auto 7.6 % (2.6-8.5); Neutrophils Absolute Auto 6.3 K/mm3 (1.3-6.7); Neutrophils Percent Auto 80.2 % (45.5-73.1); Platelet Count Result 240 k/mm3 (150-375); Red Blood Count 2.66 M/mm3 (4.6-6.20); Red Cell Distribution Width 19.5 % (11.5-14.5); White Blood Count 7.9 K/mm3 (4.5-10.0)
[2023-04-09 06:17] LABS: Alanine Aminotransferase 13 U/L (6-50); Albumin Level 2.9 g/dL (3.5-5.1); Alkaline Phosphatase 108 U/L (38-126); Anion Gap 7 mmol/L (8-16); Aspartate Amino Transferase 33 U/L (17-59); Bilirubin,Total 0.7 mg/dL (0.2-1.3); Blood Urea Nitrogen 42 mg/dL (9-20); Calcium 7.6 mg/dL (8.4-10.2); Carbon Dioxide 27 mmol/L (22-30); Chloride 102 mmol/L (98-107); Estimated CRCL calculation 13 ml/min; Estimated Glomerular Filt Rate 11; Glucose 174 mg/dL (65-110); Magnesium 2.1 mg/dL (1.6-2.3); Phosphorus 3.8 mg/dL (2.5-4.5); Potassium 3.9 mmol/L (3.4-5.0); Sodium 136 mmol/L (137-145)
[2023-04-09 08:22] LABS: Glucose Point of Care 168 mg/dl (65-105)
--- NOTE | 2023-04-09 08:23 | PM.IMPN ---
Progress Note: A&P Assessment and Plan (1) Acute on chronic kidney failure: Qualifiers: Acute renal failure type: unspecified Code(s): N17.9 - Acute kidney failure, unspecified; N18.9 - Chronic kidney disease, unspecified Status: Acute Assessment and Plan: CKD with baseline Cr 2.0-3.0. -removed trialysis catheter a couple of days ago so PermCath was placed 04/05. -Anasarca seems to be resolving. Edema to BUE has improved. -19 L negative with HD/DUF -Requiring 3 L NC to keep saturation > 92%; baseline oxygen is 3 L nc -Will d/c quintanilla (2) Volume overload: Code(s): E87.70 - Fluid overload, unspecified Status: Acute Assessment and Plan: see above (3) Bradycardia: Code(s): R00.1 - Bradycardia, unspecified Status: Acute Assessment and Plan: Believed to be related to hypothermia. Now normothermic and resolved SBP in the 80's -restart coreg (4) Diastolic congestive heart failure: Qualifiers: Heart failure chronicity: acute on chronic Qualified Code(s): I50.33 - Acute on chronic diastolic (congestive) heart failure Code(s): I50.30 - Unspecified diastolic (congestive) heart failure Status: Acute Assessment and Plan: Echo from 02/2023 shows EF with 50-55%. LV grade II diastolic dysfunction Restart home medications (5) Chronic anemia: Code(s): D64.9 - Anemia, unspecified Status: Acute Assessment and Plan: likely related to chronic disease MCV 109 MCHC 29.7 (6) Hypertension: Qualifiers: Hypertension type: primary hypertension Qualified Code(s): I10 - Essential (primary) hypertension Code(s): I10 - Essential (primary) hypertension Status: Chronic Assessment and Plan: Initially hypotensive on admission so agents were held. Now HTN. -will restart amlodipine, hydrochlorothiazide, and hydralazine -SBPs 130-140's/60's (7) Obstructive sleep apnea: Code(s): G47.33 - Obstructive sleep apnea (adult) (pediatric) Status: Acute Assessment and Plan: Cpap ordered with home settings On home o2 at 3 L NC (8) Insulin dependent diabetes mellitus: Status: Acute Assessment and Plan: HgbA1c 7.9 in 01/2023 -accu checks -sliding scale (9) Community acquired pneumonia due to Haemophilus influenzae: Code(s): J14 - Pneumonia due to Hemophilus influenzae Status: Acute Assessment and Plan: completed treatment with cefepime and vancomycin (10) Complicated UTI (urinary tract infection): Code(s): N39.0 - Urinary tract infection, site not specified Status: Acute Assessment and Plan: completed treatment with cefepime (11) AMS (altered mental status): Code(s): R41.82 - Altered mental status, unspecified Status: Acute Assessment and Plan: likely multifactorial with resolving uremia and now likely delirium delirium precautions recommended including keeping blinds open during the day and lights on, encouraging family at bedside, encourage routines, offer toileting ever 2 hours, and promote restful periods at night for sleep. added low dose Seroquel at HS limit sedating medications as much as possible Plan HD this afternoon Hope to d/c back to facility tomorrow with HD scheduled of // Subjective Date/time seen: 04/09/23 08:23 Interval history: This is a 77-year-old gentleman with PMH of HTN, insulin-dependent diabetes, diastolic congestive heart failure, chronic anemia, with CKD who presented to the ED on 03/27 with complaints of swelling. Patient had gained 30 Kg in the last month. He was hypothermic on admission, blood pressures were soft, and he had poor urine output. His baseline Cr was 2.0-3.0 but on admission it was elevated at 5.7. He was admitted for volume overload with a nephrology consult to be initiated on HD. 04/06: Patient is seen resting in bed watching TV, he
[2023-04-09] MEDS: carvediloL 25 MG TABLET PO ×2 (09:06→20:12)
[2023-04-09] MEDS: hydrALAZINE HCL 25 MG TABLET PO ×2 (09:06→18:36)
[2023-04-09] MEDS: hydroCHLOROthiazide 25 MG TABLET PO (09:06)
[2023-04-09] MEDS: amLODIPine BESYLATE 5 MG TABLET 10 MG PO (09:06)
[2023-04-09] MEDS: SERTRALINE HCL 25 MG TABLET PO (09:07)
[2023-04-09] MEDS: buPROPion HCL 75 MG TABLET PO ×2 (09:07→20:13)
[2023-04-09 11:01] LABS: Glucose Point of Care 258 mg/dl (65-105)
[2023-04-09] MEDS: INSULIN ASPART (*BKC) 100 UNITS/ML SUB-Q ×2 (12:05→20:24)
--- NOTE | 2023-04-09 13:50 | PCOTNOTE ---
Patient out of the room at this time. Patient went for dialysis this afternoon.
--- NOTE | 2023-04-09 15:17 | PC.NURSE ---
Nursing assessment and care provided by Mary Matias/student nurse/[facility]. Medications passed under direct supervision. Agree with assessments. Student will continue purposeful rounding and report to assigned nurse at end of clinical day.
--- NOTE | 2023-04-09 15:22 | PC.NURSE ---
Nursing assessment and care provided by Mary Matias/student nurse/[facility]. Medications passed under direct supervision. Agree with assessments. Student will continue purposeful rounding and report to assigned nurse at end of clinical day.
[2023-04-09] MEDS: EPOETIN ALFA 10,000 UNITS/ML VIAL 10000 UNITS IV PUSH (15:45)
--- NOTE | 2023-04-09 15:55 | PM.PNNEP ---
Progress Note: A&P Assessment and Plan (1) VISHNU (acute kidney injury): Code(s): N17.9 - Acute kidney failure, unspecified Status: Acute Assessment and Plan: as noted by trend of labs since admission (and previous admissions/hospitalizations) rather than VISHNU, I suspect this is just progression of his known CKD (but difficult to know for sure) inititated on INSTRUMENTATION CONTROLS ENGINEER/dialysis arrangements made of outpatient dialysis HD today to continue outpatient schedule of M/W/F (2) Chronic kidney disease, stage IV (severe): Code(s): N18.4 - Chronic kidney disease, stage 4 (severe) Status: Acute Assessment and Plan: creatinine ~ 4.0 - 4.5mg/dl during last hospitalization -- assumption was this was his new baseline follows with Dr. Davis Ny for CKD management suspect due to HTN, DM, vascular disease, and age-related change (3) Volume overload: Code(s): E87.70 - Fluid overload, unspecified Status: Acute Assessment and Plan: as evidenced by physical exam and imaging studies he has gained almost 60+ pounds since last hospitalization about 22L negative with HD/DUF to date fluid removal with HD as tolerated (4) Diastolic congestive heart failure: Qualifiers: Heart failure chronicity: acute on chronic Qualified Code(s): I50.33 - Acute on chronic diastolic (congestive) heart failure Code(s): I50.30 - Unspecified diastolic (congestive) heart failure Status: Acute Assessment and Plan: fluid status worse at this time more so due to renal dysfunction fluid removal with dialysis as tolerated fluid status improving follow exam and respiratory status (5) Anemia: Code(s): D64.9 - Anemia, unspecified Status: Chronic Assessment and Plan: adequate iron stores by anemia studies getting Epogen with dialysis follow trend of H/H (6) Diabetes mellitus with chronic kidney disease: Code(s): E11.22 - Type 2 diabetes mellitus with diabetic chronic kidney disease Status: Chronic Assessment and Plan: follow accu-cheks glycemic control per hospitalists Will continue to follow. Subjective Date/time seen: 04/09/23 15:55 Interval history: Follow-up for acute kidney injury on chronic kidney disease versus progression of chronic kidney disease. Tolerating hemodialysis treatment at the time of my visit (seen on HD treatment at 3:45PM); no apparent distress noted currently; mentation seems somewhat stable; no issues/events overnight or earlier this morning; anasarca/edema continues to improve. Exam Narrative: General: ill appearing and elderly male in NAD Heart: normal S1 and S2; no rub Lungs: decreased breath sounds at the bases Abdomen: soft, nontender, nondistended, positive bowel sounds Extremities: no cyanosis or clubbing, trace bilateral edema Skin: no nodules Objective Data Vital Signs Vital Signs: Vital Signs Temp Pulse Resp BP Pulse Ox O2 Del Method O2 Flow Rate 04/09/23 15:40 60 137/57 L 04/09/23 15:20 78 136/60 04/09/23 15:00 61 140/61 04/09/23 14:40 61 146/65 H 04/09/23 14:20 61 140/62 04/09/23 08:00 97 Nasal Cannula 3 04/09/23 14:00 63 146/68 H 04/09/23 13:54 98.0 F 64 16 141/65 H 95 04/09/23 13:54 3 04/09/23 09:06 62 04/09/23 07:35 98.2 F 62 14 140/52 L 97 04/09/23 06:00 97.3 F L 61 16 137/46 L 100 04/09/23 04:00 61 04/09/23 00:00 63 04/08/23 20:00 79 18 98 Nasal Cannula 3 04/08/23 21:42 97.9 F 79 18 145/46 H 98 04/08/23 20:14 88 04/08/23 17:55 98.3 F 81 20 127/42 L 95 Intake/Output Intake/Output: Intake & Output 04/06/23 04/07/23 04/08/23 04/09/23 23:59 23:59 23:59 23:59 Intake Total 570 240 220 Output Total 50 7525 25 Balance 520 -7525 215 220 Meds/Results Medications: Active Medications Generic Nam
--- NOTE | 2023-04-09 15:55 | P.PNNP_ITS ---
Progress Note: A&P Assessment and Plan (1) VISHNU (acute kidney injury): Code(s): N17.9 - Acute kidney failure, unspecified Status: Acute Assessment and Plan: * as noted by trend of labs since admission (and previous admissions/hospitalizations) * rather than VISHNU, I suspect this is just progression of his known CKD (but difficult to know for sure) * inititated on TRAVEL PTA/dialysis * arrangements made of outpatient dialysis * HD today to continue outpatient schedule of M/W/F (2) Chronic kidney disease, stage IV (severe): Code(s): N18.4 - Chronic kidney disease, stage 4 (severe) Status: Acute Assessment and Plan: * creatinine ~ 4.0 - 4.5mg/dl during last hospitalization -- assumption was this was his new baseline * follows with Dr. Davis Ny for CKD management * suspect due to HTN, DM, vascular disease, and age-related change (3) Volume overload: Code(s): E87.70 - Fluid overload, unspecified Status: Acute Assessment and Plan: * as evidenced by physical exam and imaging studies * he has gained almost 60+ pounds since last hospitalization * about 22L negative with HD/DUF to date * fluid removal with HD as tolerated (4) Diastolic congestive heart failure: Qualifiers: Heart failure chronicity: acute on chronic Qualified Code(s): I50.33 - Acute on chronic diastolic (congestive) heart failure Code(s): I50.30 - Unspecified diastolic (congestive) heart failure Status: Acute Assessment and Plan: * fluid status worse at this time more so due to renal dysfunction * fluid removal with dialysis as tolerated * fluid status improving * follow exam and respiratory status (5) Anemia: Code(s): D64.9 - Anemia, unspecified Status: Chronic Assessment and Plan: * adequate iron stores by anemia studies * getting Epogen with dialysis * follow trend of H/H (6) Diabetes mellitus with chronic kidney disease: Code(s): E11.22 - Type 2 diabetes mellitus with diabetic chronic kidney disease Status: Chronic Assessment and Plan: * follow accu-cheks * glycemic control per hospitalists Will continue to follow. Subjective Date/time seen: 04/09/23 15:55 Interval history: Follow-up for acute kidney injury on chronic kidney disease versus progression of chronic kidney disease. Tolerating hemodialysis treatment at the time of my visit (seen on HD treatment at 3:45PM); no apparent distress noted currently; mentation seems somewhat stable; no issues/events overnight or earlier this morning; anasarca/edema continues to improve. Exam Narrative: General: ill appearing and elderly male in NAD Heart: normal S1 and S2; no rub Lungs: decreased breath sounds at the bases Abdomen: soft, nontender, nondistended, positive bowel sounds Extremities: no cyanosis or clubbing, trace bilateral edema Skin: no nodules Objective Data Vital Signs Vital Signs: Vital Signs Temp Pulse Resp BP Pulse Ox O2 Del Method O2 Flow Rate 04/09/23 15:40 60 137/57 L 04/09/23 15:20 78 136/60 04/09/23 15:00 61 140/61 04/09/23 14:40 61 146/65 H 04/09/23 14:20 61 140/62 04/09/23 08:00 97 Nasal Cannula 3 04/09/23 14:00 63 146/68 H 04/09/23 13:54 98.0 F 64 16 141/65 H 95 04/09/23 13:54
[2023-04-09 19:06] LABS: Glucose Point of Care 167 mg/dl (65-105)
[2023-04-09] MEDS: rOPINIRole HCL 0.5 MG TABLET PO (20:12)
[2023-04-09] MEDS: QUEtiapine FUMARATE 12.5 MG TABLET PO (20:12)
[2023-04-09] MEDS: ACETAMINOPHEN 325 MG TABLET 650 MG PO (20:20)
[2023-04-09 20:59] LABS: Glucose Point of Care 234 mg/dl (65-105)
[2023-04-10] VITALS (8 sets, daily range): BP systolic 135–142; BP diastolic 55–70; PULSE 61–68; RESP 14–20; TEMP 36.7; O2SAT 92–94
[2023-04-10 05:18] LABS: Basophils Absolute Auto 0.1 K/mm3 (0.0-0.1); Basophils Percent Auto 1.1 % (0.2-1.2); Eosinophils Absolute Auto 0.3 K/mm3 (0-0.3); Eosinophils Percent Auto 3.7 % (0-4.4); Hematocrit 27.3 % (42.0-52.0); Hemoglobin 8.4 g/dL (14.0-18.0); Immature Granulocyte Absolute 0.05 K/mm3 (0.00-0.031); Immature Granulocyte Percent A 0.7 % (0-0.5); Lymphocytes Absolute Auto 0.53 K/mm3 (0.9-3.2); Lymphocytes Percent Auto 7.1 % (18.3-44.2); Mean Corpuscular HGB Conc 30.8 g/dl (32-36); Mean Corpuscular Hemoglobin 33.2 pg (26-34); Mean Corpuscular Volume 107.9 fl (80-100); Mean Platelet Volume 11.5 fl (7.4-10.4); Monocytes Absolute Auto 0.7 K/mm3 (0.1-0.6); Monocytes Percent Auto 8.9 % (2.6-8.5); Neutrophils Absolute Auto 5.9 K/mm3 (1.3-6.7); Neutrophils Percent Auto 78.5 % (45.5-73.1); Platelet Count Result 189 k/mm3 (150-375); Red Blood Count 2.53 M/mm3 (4.6-6.20); Red Cell Distribution Width 19.9 % (11.5-14.5); White Blood Count 7.5 K/mm3 (4.5-10.0)
[2023-04-10] MEDS: ACETAMINOPHEN 325 MG TABLET 650 MG PO (05:21)
[2023-04-10] MEDS: HEPARIN SODIUM 5,000 UNITS/ML VIAL 5000 UNITS SUB-Q (05:22)
--- NOTE | 2023-04-10 05:26 | PC.NURSE ---
On 04/09/23-04/10/23, the license pending RN, Gigi Lopez, provided care and completed [employer] documentation on this patient. I have reviewed the RN's documentation and agree with the findings.
[2023-04-10 05:35] LABS: Alanine Aminotransferase 19 U/L (6-50); Alkaline Phosphatase 151 U/L (38-126); Anion Gap 8 mmol/L (8-16); Aspartate Amino Transferase 47 U/L (17-59); Bilirubin,Total 0.7 mg/dL (0.2-1.3); Blood Urea Nitrogen 26 mg/dL (9-20); Calcium 7.8 mg/dL (8.4-10.2); Carbon Dioxide 26 mmol/L (22-30); Chloride 106 mmol/L (98-107); Estimated CRCL calculation 17 ml/min; Estimated Glomerular Filt Rate 16; Glucose 216 mg/dL (65-110); Phosphorus 2.6 mg/dL (2.5-4.5); Potassium 3.8 mmol/L (3.4-5.0); Sodium 140 mmol/L (137-145)
[2023-04-10 05:58] LABS: Platelet Estimate Adequate (Adequate)
[2023-04-10 05:59] LABS: Anisocytosis 2+ (NORMAL); Hypochromasia 2+ (NORMAL); Macrocytosis 2+ (NORMAL); Schistocytes None Seen (NORMAL)
--- NOTE | 2023-04-10 07:13 | PM.IMPN ---
Progress Note: A&P Assessment and Plan (1) Acute on chronic kidney failure: Qualifiers: Acute renal failure type: unspecified Code(s): N17.9 - Acute kidney failure, unspecified; N18.9 - Chronic kidney disease, unspecified Status: Acute Assessment and Plan: CKD with baseline Cr 2.0-3.0. -removed trialysis catheter a couple of days ago so PermCath was placed 04/05. -Anasarca seems to be resolving. Edema to BUE has improved. -22 L negative with HD/DUF -Requiring 3 L NC to keep saturation > 92%; baseline oxygen is 3 L nc -Will d/c quintanilla (2) Volume overload: Code(s): E87.70 - Fluid overload, unspecified Status: Acute Assessment and Plan: see above (3) Bradycardia: Code(s): R00.1 - Bradycardia, unspecified Status: Acute Assessment and Plan: Believed to be related to hypothermia. Now normothermic and resolved SBP in the 80's -restart coreg (4) Diastolic congestive heart failure: Qualifiers: Heart failure chronicity: acute on chronic Qualified Code(s): I50.33 - Acute on chronic diastolic (congestive) heart failure Code(s): I50.30 - Unspecified diastolic (congestive) heart failure Status: Acute Assessment and Plan: Echo from 02/2023 shows EF with 50-55%. LV grade II diastolic dysfunction Restart home medications (5) Chronic anemia: Code(s): D64.9 - Anemia, unspecified Status: Acute Assessment and Plan: likely related to chronic disease MCV 109 MCHC 29.7 (6) Hypertension: Qualifiers: Hypertension type: primary hypertension Qualified Code(s): I10 - Essential (primary) hypertension Code(s): I10 - Essential (primary) hypertension Status: Chronic Assessment and Plan: Initially hypotensive on admission so agents were held. Now HTN. -will restart amlodipine, hydrochlorothiazide, and hydralazine -SBPs 130-140's/60's (7) Obstructive sleep apnea: Code(s): G47.33 - Obstructive sleep apnea (adult) (pediatric) Status: Acute Assessment and Plan: Cpap ordered with home settings On home o2 at 3 L NC (8) Insulin dependent diabetes mellitus: Status: Acute Assessment and Plan: HgbA1c 7.9 in 01/2023 -accu checks -sliding scale (9) Community acquired pneumonia due to Haemophilus influenzae: Code(s): J14 - Pneumonia due to Hemophilus influenzae Status: Acute Assessment and Plan: completed treatment with cefepime and vancomycin (10) Complicated UTI (urinary tract infection): Code(s): N39.0 - Urinary tract infection, site not specified Status: Acute Assessment and Plan: completed treatment with cefepime (11) AMS (altered mental status): Code(s): R41.82 - Altered mental status, unspecified Status: Acute Assessment and Plan: likely multifactorial with resolving uremia and now likely delirium delirium precautions recommended including keeping blinds open during the day and lights on, encouraging family at bedside, encourage routines, offer toileting ever 2 hours, and promote restful periods at night for sleep. added low dose Seroquel at HS limit sedating medications as much as possible Plan D/C today HD scheduled of M/W/F Subjective Date/time seen: 04/10/23 07:13 Interval history: This is a 77-year-old gentleman with PMH of HTN, insulin-dependent diabetes, diastolic congestive heart failure, chronic anemia, with CKD who presented to the ED on 03/27 with complaints of swelling. Patient had gained 30 Kg in the last month. He was hypothermic on admission, blood pressures were soft, and he had poor urine output. His baseline Cr was 2.0-3.0 but on admission it was elevated at 5.7. He was admitted for volume overload with a nephrology consult to be initiated on HD. 04/06: Patient is seen resting in bed watching TV, he does not appear in acute distress. His is at
[2023-04-10 08:31] LABS: Glucose Point of Care 197 mg/dl (65-105)
[2023-04-10] MEDS: amLODIPine BESYLATE 5 MG TABLET 10 MG PO (10:09)
[2023-04-10] MEDS: hydroCHLOROthiazide 25 MG TABLET PO (10:09)
[2023-04-10] MEDS: carvediloL 25 MG TABLET PO (10:09)
[2023-04-10] MEDS: SERTRALINE HCL 25 MG TABLET PO (10:09)
[2023-04-10] MEDS: buPROPion HCL 75 MG TABLET PO (10:09)
[2023-04-10] MEDS: hydrALAZINE HCL 25 MG TABLET PO ×2 (10:09→12:20)
--- NOTE | 2023-04-10 10:27 | PM.DS ---
DS: Admitting Diagnosis Discharge Date April 10 Admitting Diagnosis fluid overload, acute on chronic renal failure DS: Discharge Diagnosis Discharge Diagnosis (1) Acute on chronic kidney failure: Qualifiers: Acute renal failure type: unspecified Code(s): N17.9 - Acute kidney failure, unspecified; N18.9 - Chronic kidney disease, unspecified Status: Acute Assessment and Plan: CKD with baseline Cr 2.0-3.0. -removed trialysis catheter a couple of days ago so PermCath was placed 04/05. -Anasarca seems to be resolving. Edema to BUE has improved. -22 L negative with HD/DUF -Requiring 3 L NC to keep saturation > 92%; baseline oxygen is 3 L nc -Will d/c quintanilla (2) Volume overload: Code(s): E87.70 - Fluid overload, unspecified Status: Acute Assessment and Plan: see above (3) Bradycardia: Code(s): R00.1 - Bradycardia, unspecified Status: Acute Assessment and Plan: Believed to be related to hypothermia. Now normothermic and resolved SBP in the 80's -restart coreg (4) Diastolic congestive heart failure: Qualifiers: Heart failure chronicity: acute on chronic Qualified Code(s): I50.33 - Acute on chronic diastolic (congestive) heart failure Code(s): I50.30 - Unspecified diastolic (congestive) heart failure Status: Acute Assessment and Plan: Echo from 02/2023 shows EF with 50-55%. LV grade II diastolic dysfunction Restart home medications (5) Chronic anemia: Code(s): D64.9 - Anemia, unspecified Status: Acute Assessment and Plan: likely related to chronic disease MCV 109 MCHC 29.7 (6) Hypertension: Qualifiers: Hypertension type: primary hypertension Qualified Code(s): I10 - Essential (primary) hypertension Code(s): I10 - Essential (primary) hypertension Status: Chronic Assessment and Plan: Initially hypotensive on admission so agents were held. Now HTN. -will restart amlodipine, hydrochlorothiazide, and hydralazine -SBPs 130-140's/60's (7) Obstructive sleep apnea: Code(s): G47.33 - Obstructive sleep apnea (adult) (pediatric) Status: Acute Assessment and Plan: Cpap ordered with home settings On home o2 at 3 L NC (8) Insulin dependent diabetes mellitus: Status: Acute Assessment and Plan: HgbA1c 7.9 in 01/2023 -accu checks -sliding scale (9) Community acquired pneumonia due to Haemophilus influenzae: Code(s): J14 - Pneumonia due to Hemophilus influenzae Status: Acute Assessment and Plan: completed treatment with cefepime and vancomycin (10) Complicated UTI (urinary tract infection): Code(s): N39.0 - Urinary tract infection, site not specified Status: Acute Assessment and Plan: completed treatment with cefepime (11) AMS (altered mental status): Code(s): R41.82 - Altered mental status, unspecified Status: Acute Assessment and Plan: likely multifactorial with resolving uremia and now likely delirium delirium precautions recommended including keeping blinds open during the day and lights on, encouraging family at bedside, encourage routines, offer toileting ever 2 hours, and promote restful periods at night for sleep. added low dose Seroquel at HS limit sedating medications as much as possible Plan D/C today HD scheduled of M/W/ DS: Summary Hospital Course Hospital Course: Interval history: This is a 77-year-old gentleman with PMH of HTN, insulin-dependent diabetes, diastolic congestive heart failure, chronic anemia, with CKD who presented to the ED on 03/27 with complaints of swelling. Patient had gained 30 Kg in the last month. He was hypothermic on admission, blood pressures were soft, and he had poor urine output. His baseline Cr was 2.0-3.0 but on admission it was elevated at 5.7. He was admitted for volume overload with a nephrology
[2023-04-10 11:49] LABS: SARS-CoV-2 RNA PCR Negative (Negative)
[2023-04-10 12:13] LABS: Glucose Point of Care 223 mg/dl (65-105)
[2023-04-10] MEDS: INSULIN ASPART (*BKC) 100 UNITS/ML SUB-Q (12:20)
== END 2023-04-10 13:21 | DRG 673 ==
LOC: ANHED 14:50 → ANHIMU 18:00 → ANH2MED 04-01 14:38
PROVIDERS: Family Medicine; Hospitalist; Internal Medicine; Internal Medicine Nephrology; Physician Assistant; Surgery; Admitting Provider Student in an Organized Health Care Education/Training Program; Emergency Provider Emergency Medicine; PCP Hospitalist; Visit Provider Nurse Practitioner Acute Care
PROC: 5A1D70Z Performance of Urinary Filtration, Intermittent, Less than 6 Hours Per Day (ICD-10-PCS; principal; 2023-03-29 13:00)
PROC: (CPT 36908; principal; 2023-04-04 12:15)
DX: N17.9 Acute kidney failure, unspecified (principal); G93.41 Metabolic encephalopathy; I50.33 Acute on chronic diastolic (congestive) heart failure; J18.9 Pneumonia, unspecified organism; I13.0 Hypertensive heart and chronic kidney disease with heart failure and stage 1 through stage 4 chronic kidney disease, or unspecified chronic kidney disease; R00.1 Bradycardia, unspecified; D63.8 Anemia in other chronic diseases classified elsewhere; G47.33 Obstructive sleep apnea (adult) (pediatric); Z20.822 Contact with and (suspected) exposure to COVID-19; E87.5 Hyperkalemia; E83.51 Hypocalcemia; N18.4 Chronic kidney disease, stage 4 (severe); E86.1 Hypovolemia; D72.829 Elevated white blood cell count, unspecified; R41.0 Disorientation, unspecified; M19.90 Unspecified osteoarthritis, unspecified site; D63.1 Anemia in chronic kidney disease; E11.42 Type 2 diabetes mellitus with diabetic polyneuropathy; J44.9 Chronic obstructive pulmonary disease, unspecified; R68.0 Hypothermia, not associated with low environmental temperature; Z90.49 Acquired absence of other specified parts of digestive tract; Z87.891 Personal history of nicotine dependence; E66.9 Obesity, unspecified; Z68.30 Body mass index [BMI] 30.0-30.9, adult
CPT/HCPCS: 36415; 36600; 70450; 71045; 74176; 77001; 80048; 80053; 80069; 80074; 80202; 81001; 82306; 82375; 82728; 82805; 82948; 83050; 83540; 83550; 83605; 83690; 83735; 83880; 83970; 84100; 84145; 84439; 84443; 84480; 84484; 85025; 85027; 85610; 85652; 85730; 86140; 86704; 86706; 87040; 87081; 87086; 87340; 87635; 87636; 93005; 94640; 96365; 96375; 96376; 97110; 97161; 97165; 97530; 97535; 99285; A9270; C1750; C1752; G0257; G0378; J0612; J0690; J0692; J1644; J1815; J1940; J2270; J2405; J2704; J3010; J3370; J7030; J7040; J7120; P9047; Q4081

== ENCOUNTER 2023-05-05 08:22 | Emergency (ER) | payer MEDICARE, SELFPAY ==
--- NOTE | ~2023-05-05 | CT_ITS ---
EXAMINATION: CT cervical spine wo con DATE: 05/05/2023 09:27 INDICATION: Neck pain after fall TECHNIQUE: Computed tomography (CT) of the cervical spine was performed without intravenous contrast. The dose-length product was 336 mGy-cm. Automated exposure control and iterative reconstruction tech [employer] were employed. COMPARISON: CT dated 01/19/2023 FINDINGS: Craniovertebral junction within normal limits. Odontoid process is normal. There is degener ative anterolisthesis at C4-5 measuring 2 mm. There is moderate multilevel facet hypertrophy. There i s mild multilevel uncinate hypertrophy. Mild levocurvature of the cervical spine. Lung apices are nor mal. No significant paraspinal soft tissue abnormality. Lung apices are normal. IMPRESSION: 1. No acute abnormality of the cervical spine. Reviewed, dictated and finalized at location A.
--- NOTE | ~2023-05-05 | CT_ITS ---
EXAMINATION: CT brain wo con DATE: 05/05/2023 09:27 INDICATION: Status post fall. TECHNIQUE: Computed tomography (CT) of the head was performed without intravenous contrast. The dose- length product was 605.33 mGy-cm. Automated exposure control and iterative reconstruction technique w ere employed. COMPARISON: CT dated 03/27/2023 FINDINGS: Generalized atrophy. There is chronic prominence of the ventricles, likely due to volume lo ss. There are scattered moderate periventricular and subcortical white matter changes, most likely re lated to small vessel ischemic disease (microangiopathy). No midline shift. Basilar cisterns are martinez nt. There is mild posterior parietal scalp swelling. There is intracranial atherosclerosis. No acute infarction, hemorrhage, mass or mass effect. Paranasal sinuses and mastoids are pneumatized. No depre ssed skull fractures. IMPRESSION: 1. No acute intracranial abnormality. Reviewed, dictated and finalized at location A.
--- NOTE | ~2023-05-05 | XR_ITS ---
XR hand RT min 3V 05/05/2023 09:38 Indication: Right hand pain Procedure: 3 views right hand Comparison: No prior studies for comparison. Findings: Mild-moderate polyarticular osteoarthritis. There is atherosclerosis of the wrist. No erosi ve changes.No acute fracture or traumatic malalignment. No significant soft tissue abnormality. No fo reign bodies. Impression: 1: No acute fracture. 2: Mild-moderate polyarticular osteoarthritis. Reviewed, dictated and finalized at location A. Impression: 1: No acute fracture. 2: Mild-moderate polyarticular osteoarthritis.
[2023-05-05 08:27] VITALS: BP 122/48; PULSE 64; RESP 20; TEMP 36.6; O2SAT 95
[2023-05-05 08:46] VITALS: BP 138/53; PULSE 62; RESP 15; O2SAT 96
--- NOTE | 2023-05-05 08:56 | ED.FALL ---
HPI - Fall General Chief Complaint: Fall Stated Complaint: fall Time Seen by Provider: 05/05/23 08:25 History of Present Illness HPI Narrative: 77-year-old male presented to the emergency department for evaluation after having a head injury. Patient states he was reaching for what he thought was his wheelchair but turned out to be a chair and patient had a fall due to having an unstable surface to lean on. Patient did fall back struck his head but had no loss of consciousness. Related Data Home Medications Medication Instructions Recorded Confirmed carvedilol 12.5 mg tablet (Coreg) 25 mg PO Q12HR 11/27/22 04/25/23 gabapentin 100 mg capsule 100 mg PO BID 11/27/22 04/25/23 pantoprazole 40 mg tablet,delayed 40 mg PO .THREE TIMES WEEKLY 01/13/23 04/25/23 release amlodipine 10 mg tablet 10 mg PO DAILY 02/18/23 04/25/23 insulin glargine 100 unit/mL (3 15 unit subcut DAILY 03/23/23 04/25/23 mL) subcutaneous pen (Lantus Solostar U-100 Insulin) Allergies Allergy/AdvReac Type Severity Reaction Status Date / Time LAUREN Inhibitors Allergy Cough Verified 02/18/23 20:49 enalapril Allergy Cough Verified 02/18/23 20:49 lisinopril Allergy Cough Verified 02/18/23 20:49 quinapril Allergy Cough Verified 02/18/23 20:49 Review of Systems Review of Systems: All systems reviewed & are unremarkable except as noted in HPI and below PMFSH Past Medical History Medical History Arthritis Chronic anemia Chronic kidney disease Chronic obstructive pulmonary disease Depression Diabetic peripheral neuropathy Diastolic congestive heart failure Hypertension Insulin dependent diabetes mellitus Obstructive sleep apnea Surgical History Surgical History History of cholecystectomy History of foot surgery History of penile implant Family History Family History Father Cancer Diabetes mellitus Mother Hyperlipidemia Hypertension Heart attack Sibling Hx of CABG Colon cancer Social History Social History Social History: Surrogate medical decision maker: Palmira Worthington, granddaughter. Code status: Full code. Smoking packs per day: 1 Smoking cigarettes per day: 20.0 Years smoked: 2 Smoking pack-years: 2.00 Smoking status: Former smoker Tobacco type: cigarettes Second hand tobacco smoke exposure: Yes Smoking end date: 08/13/1967 Alcohol intake: former Drinks per week: 1 Alcohol use details: Occasional glass a wine though rare. Substance use: never Substance use type: does not use Lack of Transportation: No Lack of Food: Never True Current Housing: I Have Housing Concerned About Future Housing: No Difficulty Paying Gas/Electric Bills: No Difficulty Paying for Meds: No Currently Unemployed: No Education: High School Diploma/GED Difficulty w/ Childcare or Family Care: No Living arrangements: with family Occupation/Education: retired Additional occupation/education comments: Retired from [employer]. Spiritual care concerns: No Exam Narrative: APPEARANCE: Well appearing, no pain, no distress, well-nourished. HEAD: normocephalic, hematoma. EYES: PERRLA/EOMI, conjunctivae clear. NOSE: Normal no drainage EARS:TMS clear with good light reflex. THROAT: Pharynx clear, no exudate. NECK: Supple. No adenopathy, no masses. RESPIRATORY: Airway patent, respirations nonlabored. Clear to auscultation bilaterally, no rales, rhonchi, wheezing. CARDIOVASCULAR: Regular rate and rhythm without murmurs rubs or gallops. ABDOMINAL: Soft, nontender, nondistended, normal bowel sounds MUSCULOSKELETAL: Moves all extremities. Tenderness at right snuffbox NEURO: Alert. Cranial nerves II through XII intact. Grossly intact SKIN: Hematoma to posterior scalp Course Course Bindu
[2023-05-05 10:00] VITALS: BP 136/80; PULSE 78; RESP 18; TEMP 36.7; O2SAT 96
== END 2023-05-05 10:00 ==
PROVIDERS: Emergency Provider Emergency Medicine; PCP Hospitalist
DX: S00.03XA Contusion of scalp, initial encounter (principal); S69.91XA Unspecified injury of right wrist, hand and finger(s), initial encounter; E11.22 Type 2 diabetes mellitus with diabetic chronic kidney disease; N18.9 Chronic kidney disease, unspecified; I13.0 Hypertensive heart and chronic kidney disease with heart failure and stage 1 through stage 4 chronic kidney disease, or unspecified chronic kidney disease; I50.30 Unspecified diastolic (congestive) heart failure; J44.9 Chronic obstructive pulmonary disease, unspecified; E11.42 Type 2 diabetes mellitus with diabetic polyneuropathy; D64.9 Anemia, unspecified; M19.90 Unspecified osteoarthritis, unspecified site; G47.33 Obstructive sleep apnea (adult) (pediatric); Z87.891 Personal history of nicotine dependence; Z90.49 Acquired absence of other specified parts of digestive tract; Z79.4 Long term (current) use of insulin; W18.39XA Other fall on same level, initial encounter
CPT/HCPCS: 70450; 72125; 73130; 99284

== ENCOUNTER 2023-06-02 20:53 | Inpatient (IN) | payer MEDICARE, SELFPAY ==
--- NOTE | ~2023-06-02 | CT_ITS ---
EXAMINATION: CT cervical spine wo con DATE: 06/02/2023 22:19 INDICATION: Status post fall from wheelchair. Neck pain. TECHNIQUE: Computed tomography (CT) of the cervical spine was performed without intravenous contrast. The dose-length product was 424 mGy-cm. Automated exposure control and iterative reconstruction tech Within[employer] were employed. COMPARISON: CT dated 05/05/2023 FINDINGS: There is normal cervical lordosis. There is disc narrowing at C5-6. There are bridging oste ophytes at C4-5, C5-6 and C6-7. There is ossification of the nuchal ligament. Craniovertebral junctio n is normal. Odontoid process is normal. No significant paraspinal soft tissue abnormality. There is a right-sided central venous catheter. Small left pleural effusion partially visualized. No acute fra cture or traumatic malalignment. No interval change. IMPRESSION: 1. No acute abnormality of the cervical spine. Reviewed, dictated and finalized at location A.
--- NOTE | ~2023-06-02 | CT_ITS ---
EXAMINATION: CT brain wo con DATE: 06/02/2023 22:18 INDICATION: Status post fall from wheelchair. Head injury. TECHNIQUE: Computed tomography (CT) of the head was performed without intravenous contrast. The dose- length product was 681.00 mGy-cm. Automated exposure control and iterative reconstruction technique w ere employed. COMPARISON: CT dated 05/05/2023 FINDINGS: No acute intracranial hemorrhage, infarction, mass or mass effect. There is enlargement of the ventricles due to volume loss. There are scattered mild periventricular and subcortical white mat ter changes, most likely related to small vessel ischemic disease (microangiopathy). No midline shift . There is intracranial atherosclerosis. There is a left frontal scalp hematoma. Paranasal sinuses an d mastoids are pneumatized. No depressed skull fractures. IMPRESSION: 1. No acute intracranial abnormality. Reviewed, dictated and finalized at location A.
--- NOTE | ~2023-06-02 | XR_ITS ---
EXAM: XR wrist RT min 3V DATE: 06/02/2023 21:37 HISTORY: fall from wheelchair, pain IN RIGHT WRIST . COMPARISON: 05/05/2023. FINDINGS: Decreased mineralization. No fracture or dislocation. No lytic or blastic lesion. Scattere d degenerative changes. No erosion or periosteal change. Vascular calcifications. IMPRESSION: No acute osseous finding in the right wrist. Reviewed, dictated and finalized at location K.
[2023-06-02 20:53] VITALS: BP 138/62; PULSE 68; RESP 18; TEMP 36.8; O2SAT 94
--- NOTE | 2023-06-02 21:21 | ED.FALL ---
HPI - Fall General Chief Complaint: Fall Stated Complaint: RT ARM PAIN S/P GLF Time Seen by Provider: 06/02/23 21:02 Source: patient, family and old records reviewed Mode of arrival: EMS Limitations: no limitations History of Present Illness HPI Narrative: Patient is a 77 y/o male who presents to the ED via EMS with report of a fall. Patient is a resident of [facility]. He reports his sock fell off tonight and he tried leaning forward out of his wheelchair to grab it when he fell. He hit his forehead on the ground. He did not lose consciousness. He sustained an abrasion to his forehead and small skin tears to left elbow. He c/o pain to his R wrist and jacques hands. Denies any neck or back pain, BALDWIN, dizziness, vision changes, nausea, vomiting, abdominal pain, leg pain, CP, SOB. Patient has Hx of ESRD on hemodialysis MWF. He sees Dr. Alvarez. He states he was told on Sunday he may need a blood transfusion on Sunday. He thinks he was told his Hgb was 4. Patient's family at bedside unaware of this and unsure of validity. Patient denies any recent bleeding, melena. He takes an aspirin 81 mg daily. No other blood thinners. Related Data Home Medications Medication Instructions Recorded Confirmed carvedilol 12.5 mg tablet (Coreg) 25 mg PO Q12HR 11/27/22 05/23/23 gabapentin 100 mg capsule 100 mg PO BID 11/27/22 05/23/23 pantoprazole 40 mg tablet,delayed 40 mg PO .THREE TIMES WEEKLY 01/13/23 05/23/23 release amlodipine 10 mg tablet 10 mg PO DAILY 02/18/23 05/23/23 insulin glargine 100 unit/mL (3 15 unit subcut DAILY 03/23/23 05/23/23 mL) subcutaneous pen (Lantus Solostar U-100 Insulin) Allergies Allergy/AdvReac Type Severity Reaction Status Date / Time LAUREN Inhibitors Allergy Cough Verified 02/18/23 20:49 enalapril Allergy Cough Verified 02/18/23 20:49 lisinopril Allergy Cough Verified 02/18/23 20:49 quinapril Allergy Cough Verified 02/18/23 20:49 Review of Systems Review of Systems: CONSTITUTIONAL: Denies fever, chills, or sweats. EYES: Denies visual changes. CARDIOVASCULAR: Denies chest pain. RESPIRATORY: Denies dyspnea. GASTROINTESTINAL: Denies abdominal pain, nausea, vomiting. MUSCULOSKELETAL: See HPI. SKIN: See HPI. NEUROLOGIC: See HPI. All systems reviewed & are unremarkable except as noted in HPI and below PMFSH Past Medical History Medical History Arthritis Chronic anemia Chronic kidney disease Chronic obstructive pulmonary disease Depression Diabetic peripheral neuropathy Diastolic congestive heart failure Hypertension Insulin dependent diabetes mellitus Obstructive sleep apnea Surgical History Surgical History History of cholecystectomy History of foot surgery History of penile implant Family History Family History Father Cancer Diabetes mellitus Mother Hyperlipidemia Hypertension Heart attack Sibling Hx of CABG Colon cancer Social History Social History Social History: Surrogate medical decision maker: Palmira Worthington, granddaughter. Code status: Full code. Smoking packs per day: 1 Smoking cigarettes per day: 20.0 Years smoked: 2 Smoking pack-years: 2.00 Smoking status: Former smoker Tobacco type: cigarettes Second hand tobacco smoke exposure: Yes Smoking end date: 08/13/1967 Alcohol intake: former Drinks per week: 1 Alcohol use details: Occasional glass a wine though rare. Substance use: never Substance use type: does not use Lack of Transportation: No Lack of Food: Never True Current Housing: I Have Housing Concerned About Future Housing: No Difficulty Paying Gas/Electric Bills: No Difficulty Paying for Meds: No Currently Unemployed: No Education: High School Diploma/GED Difficulty
[2023-06-02 21:45] LABS: Basophils Absolute Auto 0.1 K/mm3 (0.0-0.1); Basophils Percent Auto 1.1 % (0.2-1.2); Eosinophils Absolute Auto 0.3 K/mm3 (0-0.3); Eosinophils Percent Auto 5.5 % (0-4.4); Immature Granulocyte Absolute 0.02 K/mm3 (0.00-0.031); Immature Granulocyte Percent A 0.3 % (0-0.5); Lymphocytes Absolute Auto 1.67 K/mm3 (0.9-3.2); Lymphocytes Percent Auto 27.2 % (18.3-44.2); Mean Corpuscular HGB Conc 31.4 g/dl (32-36); Mean Corpuscular Hemoglobin 31.6 pg (26-34); Mean Corpuscular Volume 100.6 fl (80-100); Mean Platelet Volume 9.3 fl (7.4-10.4); Monocytes Absolute Auto 0.7 K/mm3 (0.1-0.6); Neutrophils Absolute Auto 3.3 K/mm3 (1.3-6.7); Neutrophils Percent Auto 53.9 % (45.5-73.1); Platelet Count Result 343 k/mm3 (150-375); Red Blood Count 1.74 M/mm3 (4.6-6.20); White Blood Count 6.2 K/mm3 (4.5-10.0)
[2023-06-02 21:55] LABS: Alanine Aminotransferase 27 U/L (6-50); Albumin Level 3.6 g/dL (3.5-5.1); Alkaline Phosphatase 118 U/L (38-126); Anion Gap 7 mmol/L (8-16); Aspartate Amino Transferase 38 U/L (17-59); Bilirubin,Total 0.4 mg/dL (0.2-1.3); Blood Urea Nitrogen 35 mg/dL (9-20); Carbon Dioxide 28 mmol/L (22-30); Chloride 103 mmol/L (98-107); Estimated CRCL calculation 23 ml/min; Estimated Glomerular Filt Rate 20; Glucose 96 mg/dL (65-110); Potassium 4.4 mmol/L (3.4-5.0); Sodium 138 mmol/L (137-145)
[2023-06-02 22:13] LABS: Hematocrit 17.5 % (42.0-52.0); Hemoglobin 5.5 g/dL (14.0-18.0)
[2023-06-03] VITALS (23 sets, daily range): BP systolic 142–161; BP diastolic 48–93; PULSE 61–80; RESP 15–20; TEMP 36.2–36.8; O2SAT 91–97; BMI 27.3
--- NOTE | 2023-06-03 00:39 | PM.IMHP ---
H&P: HPI History of Present Illness Date/Time: 06/03/23 00:39 Chief Complaint: FALL Narrative: THIS IS A 77-YEAR-OLD MALE WITH PAST MEDICAL HISTORY SIGNIFICANT FOR CHRONIC KIDNEY DISEASE CHRONIC ANEMIA DIASTOLIC HEART FAILURE DIABETIC PERIPHERAL NEUROPATHY HYPERTENSION OBSTRUCTIVE SLEEP APNEA INSULIN-DEPENDENT DIABETES MELLITUS, PATIENT USES A WHEELCHAIR. COMES TO THE EMERGENCY ROOM AFTER HE FELL FORWARD WHILE TRYING TO TAKE HIS SOCKS OFF HE WAS SITTING IN HIS WHEELCHAIR HE STRUCK HIS HEAD ON THE WAY DOWN. PRELIMINARY WORKUP WAS SIGNIFICANT FOR HEMOGLOBIN OF 5. A CT OF THE HEAD AND CERVICAL SPINE DID NOT SHOW ACUTE FRACTURES PER PRELIMINARY REPORT. Review of Systems Review of Systems: FALL Constitutional: Constitutional: Denies chills, Denies fatigue, Denies fever(s), Denies malaise, Denies night sweats, Denies poor appetite and Denies weakness Eyes: Eyes: Denies change in vision ENT: Denies dysphagia, Denies vertigo, Denies dizziness, Denies epistaxis and Denies odynophagia Cardiovascular: Cardiovascular: Denies chest pain, Denies syncope, Denies radiating jaw, neck or arm pain, Denies palpitations and Denies dyspnea Respiratory: Respiratory: Denies chest congestion, Denies cough and Denies dyspnea Gastrointestinal: Gastrointestinal: Denies abdominal pain, Denies melena, Denies hematochezia, Denies dyspepsia, Denies heartburn, Denies diarrhea, Denies nausea and Denies vomiting Genitourinary: Genitourinary: Denies dysuria and Denies flank pain Musculoskeletal: Musculoskeletal: Denies myalgias, Denies arthralgias and Denies joint swelling Integumentary/Breasts: Skin/Breast: Denies rash Neurologic: Denies vertigo, Denies dizziness, Denies focal weakness and Denies Sensory deficit (Neuro) Psychiatric: Psychiatric: Reports no additional psychiatric complaints and Reports as per HPI Endocrine: Endocrine: Denies cold intolerance, Denies flushing, Denies heat intolerance, Denies polyphagia, Denies polydipsia and Denies palpitations Hematologic/Lymphatic: Hematologic/Lymphatic: Reports no additional hematologic/lymphatic complaints and Reports as per HPI Allergic/Immunologic: Allergic/Immunologic: Reports no additional allergic/immunologic complaints and Reports as per HPI PMFSH Past Medical History Medical History Arthritis Chronic anemia Chronic kidney disease Chronic obstructive pulmonary disease Depression Diabetic peripheral neuropathy Diastolic congestive heart failure Hypertension Insulin dependent diabetes mellitus Obstructive sleep apnea Surgical History Surgical History History of cholecystectomy History of foot surgery History of penile implant Family History Family History Father Cancer Diabetes mellitus Mother Hyperlipidemia Hypertension Heart attack Sibling Hx of CABG Colon cancer Social History Social History Social History: Surrogate medical decision maker: Palmira Worthington, granddaughter. Code status: Full code. Smoking packs per day: 1 Smoking cigarettes per day: 20.0 Years smoked: 2 Smoking pack-years: 2.00 Smoking status: Former smoker Tobacco type: cigarettes Second hand tobacco smoke exposure: Yes Smoking end date: 08/13/1967 Alcohol intake: former Drinks per week: 1 Alcohol use details: Occasional glass a wine though rare. Substance use: never Substance use type: does not use Lack of Transportation: No Lack of Food: Never True Current Housing: I Have Housing Concerned About Future Housing: No Difficulty Paying Gas/Electric Bills: No Difficulty Paying for Meds: No Currently Unemployed: No Education: High School Diploma/GED Difficulty w/ Childcare or Family Care: No Living arrangements:
[2023-06-03 00:58] LABS: Iron 152 ug/dL (49-181)
[2023-06-03 01:07] LABS: Percent Iron Saturation 73 % (20-50)
[2023-06-03] MEDS: ACETAMINOPHEN 325 MG TABLET 650 MG PO ×3 (01:20→19:44)
[2023-06-03 01:45] LABS: Reticulocyte Hemoglobin Conten 35.7 pg (28.2-35.7)
[2023-06-03 01:56] LABS: Lactate Dehydrogenase 266 U/L (120-246)
--- NOTE | 2023-06-03 02:02 | ADMGEN ---
This patient, Kenneth Powers, was admitted to Medical Room 244-. Patient/family oriented to hospital policies and general routines including ID bracelet, bed and alarms, visiting hours, pain management, procedures, bathroom and other care routines, personal items, smoking policy, room service/diet, and visiting hours. Information on how to activate the Rapid Response Team has been discussed. Patient/Family are encouraged to report perceived risks to care and to ask questions if they do not understand what they are told or what they should do.
[2023-06-03 02:14] LABS: Transferrin 139 mg/dL (206-381)
[2023-06-03 03:04] LABS: Folic Acid 8.5 ng/mL (2.76->20)
[2023-06-03] MEDS: SODIUM CHLORIDE 0.9% IV 250 ML 30 ML IV CONT (03:56)
[2023-06-03 08:00] LABS: Hematocrit 20.1 % (42.0-52.0); Hemoglobin 6.4 g/dL (14.0-18.0)
[2023-06-03 08:52] LABS: Glucose Point of Care 155 mg/dl (65-105)
[2023-06-03] MEDS: GABAPENTIN 100 MG CAPSULE PO ×2 (09:45→18:05)
[2023-06-03] MEDS: SERTRALINE HCL 25 MG TABLET PO (09:45)
[2023-06-03] MEDS: buPROPion HCL 75 MG TABLET PO ×2 (09:45→19:45)
[2023-06-03] MEDS: INSULIN GLARGINE (*BKC) 100 UNITS/ML 18 UNITS SUB-Q (10:35)
[2023-06-03] MEDS: INSULIN ASPART (*BKC) 100 UNITS/ML 10 UNITS SUB-Q (10:36)
--- NOTE | 2023-06-03 11:25 | PM.CNNEP ---
Assessment and Plan Assessment and plan (1) End stage renal disease: Code(s): N18.6 - End stage renal disease Status: Chronic Assessment and Plan: HD tomorrow continue M/W/F dialysis schedule while hospitalized follow electrolytes, volume status, and clearance (2) Anemia: Code(s): D64.9 - Anemia, unspecified Status: Chronic Assessment and Plan: H/H quite low on admission related in part to ESRD; other factors involved? PRBC transfusion per protocol (2units of PRBC given so far) Epogen with HD follow stool guaiac results follow trend of H/H (3) Accidental fall from wheelchair: Qualifiers: Encounter type: initial encounter Qualified Code(s): W05.0XXA - Fall from non-moving wheelchair, initial encounter Code(s): W05.0XXA - Fall from non-moving wheelchair, initial encounter Status: Acute Assessment and Plan: no acute injury by imaging to date fall precautions PT/OT as tolerated (4) Diastolic congestive heart failure: Qualifiers: Heart failure chronicity: acute on chronic Qualified Code(s): I50.33 - Acute on chronic diastolic (congestive) heart failure Code(s): I50.30 - Unspecified diastolic (congestive) heart failure Status: Acute Assessment and Plan: compensated at this time fluid removal with dialysis to maintain euvolemia (5) Hypertension: Qualifiers: Hypertension type: primary hypertension Qualified Code(s): I10 - Essential (primary) hypertension Code(s): I10 - Essential (primary) hypertension Status: Chronic Assessment and Plan: reasonable control follow trend of hemodynamics (6) Type 2 diabetes mellitus: Code(s): E11.9 - Type 2 diabetes mellitus without complications Status: Chronic Assessment and Plan: follow accu-cheks glycemic control per hospitalists I will continue to follow the patient with you while he remains hospitalized and make further recommendations as deemed necessary. Thank you for allowing me to participate in the care of this patient. History of Present Illness Reason for Consult Consult date: 06/03/23 Reason for consult: end stage renal disease Chief Complaint Chief complaint: Anemia, ESRD on dialysis History of Present Illness Narrative: The patient is a 77-year-old male with a past medical history as outlined below who presented to [facility] Emergency room status post fall. The patient currently resides at [facility] and apparently, yesterday evening, the patient sustained a fall from his wheelchair. Apparently, 1 of his socks fell off his foot and he leaned forward trying to grab it when he fell out of his wheelchair. He apparently hit his forehead on the ground but did not lose consciousness. He sustained an abrasion to his forehead and a small skin tear to his left elbow. He also had some complaints of pain in his right wrist and bilateral hands. He reported no symptoms prior to or after the fall with regard to chest pain, shortness of breath, nausea, vomiting, dizziness, palpitations, or near syncope. His nursing facility called EMS and he was transported to the emergency room for further assessment. Workup and evaluation emergency room demonstrated the patient be hemodynamically stable and in no apparent distress. Imaging studies did not demonstrate any acute fractures or injuries. He did have routine blood work done which demonstrated labs consistent with his known history of end-stage renal disease but it was noted that his hemoglobin hematocrit were quite low. It should be noted that he had labs done at his outpatient dialysis center that showed his hemoglobin was also slightly low and attempt to compensate, his erythropoietic stimulating agents as well as IV iron were increased with the plan to repeat blood test next week to ascertain if he would require a packed red blood cell tra
[2023-06-03 12:09] LABS: Glucose Point of Care 163 mg/dl (65-105)
--- NOTE | 2023-06-03 14:07 | PC.NURSE ---
TAR vital times 1015: INITIAL; T: 97.5, HR: 77, RR: 18, O2 Sat: 92%, BP: 156/48. 1031: T: 97.5, HR: 73, RR: 20, O2 Sat: 94%, BP: 153/64. 1131: T: 97.4, HR: 64, RR: 18, O2 Sat: 97%, BP: 148/62. 1231: T: 97.6, HR: 61, RR: 16, O2 Sat: 96%, BP: 152/60. 1331: T: 97.4 , HR: 62 , RR: 16 , O2 Sat: 96% , BP: 153/62 . 1341: FINAL; T: 97.1, HR: 63, RR: 20, O2 Sat: 95%, BP: 155/67.
[2023-06-03 15:27] LABS: Hematocrit 22.9 % (42.0-52.0); Hemoglobin 7.2 g/dL (14.0-18.0)
[2023-06-03 16:51] LABS: Glucose Point of Care 78 mg/dl (65-105)
[2023-06-03 18:11] LABS: IFOB Positive Control Positive; Immunochemical Fecal Occult Bl Negative (N)
[2023-06-03] MEDS: rOPINIRole HCL 0.5 MG TABLET PO (19:45)
[2023-06-03 20:22] LABS: Glucose Point of Care 129 mg/dl (65-105)
[2023-06-04] VITALS (22 sets, daily range): BP systolic 146–167; BP diastolic 57–76; PULSE 66–90; RESP 16–20; TEMP 36.6–37.2; O2SAT 91–93
[2023-06-04 05:33] LABS: Basophils Absolute Auto 0.1 K/mm3 (0.0-0.1); Basophils Percent Auto 1.4 % (0.2-1.2); Eosinophils Absolute Auto 0.3 K/mm3 (0-0.3); Eosinophils Percent Auto 3.3 % (0-4.4); Hematocrit 22.3 % (42.0-52.0); Hemoglobin 7.2 g/dL (14.0-18.0); Immature Granulocyte Absolute 0.05 K/mm3 (0.00-0.031); Immature Granulocyte Percent A 0.6 % (0-0.5); Lymphocytes Absolute Auto 1.53 K/mm3 (0.9-3.2); Lymphocytes Percent Auto 17.2 % (18.3-44.2); Mean Corpuscular HGB Conc 32.3 g/dl (32-36); Mean Corpuscular Hemoglobin 30.5 pg (26-34); Mean Corpuscular Volume 94.5 fl (80-100); Mean Platelet Volume 9.6 fl (7.4-10.4); Monocytes Percent Auto 10.7 % (2.6-8.5); Neutrophils Absolute Auto 5.9 K/mm3 (1.3-6.7); Neutrophils Percent Auto 66.8 % (45.5-73.1); Platelet Count Result 380 k/mm3 (150-375); Red Blood Count 2.36 M/mm3 (4.6-6.20); Red Cell Distribution Width 17.4 % (11.5-14.5); White Blood Count 8.9 K/mm3 (4.5-10.0)
[2023-06-04 05:47] LABS: Anion Gap 8 mmol/L (8-16); Blood Urea Nitrogen 45 mg/dL (9-20); Calcium 8.2 mg/dL (8.4-10.2); Carbon Dioxide 25 mmol/L (22-30); Chloride 103 mmol/L (98-107); Estimated CRCL calculation 18 ml/min; Estimated Glomerular Filt Rate 19; Glucose 92 mg/dL (65-110); Potassium 4.7 mmol/L (3.4-5.0); Sodium 136 mmol/L (137-145)
[2023-06-04 06:08] LABS: Hepatitis B Surface Antigen Negative (Negative)
[2023-06-04 06:26] LABS: Hepatitis B Surface Anti Res Negative
[2023-06-04 07:54] LABS: Glucose Point of Care 91 mg/dl (65-105)
--- NOTE | 2023-06-04 10:05 | PM.PNNEP ---
Progress Note: A&P Assessment and Plan (1) End stage renal disease: Code(s): N18.6 - End stage renal disease Status: Chronic Assessment and Plan: HD today continue M/W/F dialysis schedule while hospitalized follow electrolytes, volume status, and clearance (2) Anemia: Code(s): D64.9 - Anemia, unspecified Status: Chronic Assessment and Plan: H/H quite low on admission related in part to ESRD; other factors involved? PRBC transfusion per protocol (2units of PRBC given so far) Epogen with HD guaiac negative follow trend of H/H (3) Accidental fall from wheelchair: Qualifiers: Encounter type: initial encounter Qualified Code(s): W05.0XXA - Fall from non-moving wheelchair, initial encounter Code(s): W05.0XXA - Fall from non-moving wheelchair, initial encounter Status: Acute Assessment and Plan: no acute injury by imaging to date fall precautions PT/OT as tolerated (4) Diastolic congestive heart failure: Qualifiers: Heart failure chronicity: acute on chronic Qualified Code(s): I50.33 - Acute on chronic diastolic (congestive) heart failure Code(s): I50.30 - Unspecified diastolic (congestive) heart failure Status: Acute Assessment and Plan: compensated at this time fluid removal with dialysis to maintain euvolemia (5) Hypertension: Qualifiers: Hypertension type: primary hypertension Qualified Code(s): I10 - Essential (primary) hypertension Code(s): I10 - Essential (primary) hypertension Status: Chronic Assessment and Plan: reasonable control follow trend of hemodynamics (6) Type 2 diabetes mellitus: Code(s): E11.9 - Type 2 diabetes mellitus without complications Status: Chronic Assessment and Plan: follow accu-cheks glycemic control per hospitalists Will continue to follow. Subjective Date/time seen: 06/04/23 10:05 Interval history: Follow-up for end-stage renal disease on hemodialysis. Tolerating hemodialysis treatment at the time of my visit (seen on HD at 9:55AM); no apparent distress noted; tolerated PRBC transfusion yesterday; H/H remains relatively stable; no other issues/events overnight or earlier this morning. Exam Narrative: General: elderly but WD/WN male in NAD Heart: normal S1 and S2; no rub Lungs: clear anteriorly, decreased at bases Abdomen: soft, nontender, nondistended, positive bowel sounds Extremities: no cyanosis or clubbing, trace edema Skin: warm and dry Objective Data Vital Signs Vital Signs: Vital Signs Temp Pulse Resp BP Pulse Ox O2 Del Method 06/04/23 04:58 99.0 F 81 20 164/63 H 91 06/04/23 04:00 74 06/04/23 00:00 74 06/03/23 20:00 69 06/03/23 19:54 68 20 92 Room Air 06/03/23 19:42 97.9 F 68 20 158/62 H 92 06/03/23 16:04 65 06/03/23 12:01 65 06/03/23 13:41 97.1 F L 63 20 155/67 H 95 06/03/23 11:31 97.6 F 61 16 152/60 H 96 06/03/23 13:33 97.6 F 61 16 152/60 H 96 06/03/23 11:30 97.4 F L 64 18 148/62 H 97 Intake/Output Intake/Output: Intake & Output 06/01/23 06/02/23 06/03/23 06/04/23 23:59 23:59 23:59 23:59 Intake Total 1520 480 Output Total 450 Balance 1070 480 Meds/Results Medications: Active Medications Generic Name Dose Route Start Last Admin Trade Name Freq PRN Reason Stop Dose Admin Acetaminophen 650 mg 06/03/23 09:14 06/03/23 19:44 Acetaminophen 325 Mg Tablet PO 650 mg Q6H PRN Administration Mild Pain (1-3) or Fever Bupropion HCl 75 mg 06/03/23 09:00 06/03/23 19:45 Bupropion Hcl 75 Mg Tablet PO 75 mg Q12HR LUX Administration Calcium Carbonate 500 mg 06/03/23 09:00 06/03/23 09:45 Calcium/Vitamin D 500 Mg Tablet PO 500 mg QAM LUX Administration Epoetin Jonas 20,000 units 06/04/23 20:00 Epoetin Jonas 20,000 Units/Ml
--- NOTE | 2023-06-04 10:25 | PM.IMPN ---
Progress Note: A&P Assessment and Plan (1) Accidental fall from wheelchair: Qualifiers: Encounter type: initial encounter Qualified Code(s): W05.0XXA - Fall from non-moving wheelchair, initial encounter Code(s): W05.0XXA - Fall from non-moving wheelchair, initial encounter Status: Acute Assessment and Plan: NO ACUTE FRACTURES FALL PRECAUTIONS (2) Closed head injury: Qualifiers: Encounter type: initial encounter Qualified Code(s): S09.90XA - Unspecified injury of head, initial encounter Code(s): S09.90XA - Unspecified injury of head, initial encounter Status: Acute Assessment and Plan: CONTINUE TO MONITOR (3) ESRD on hemodialysis: Code(s): N18.6 - End stage renal disease; Z99.2 - Dependence on renal dialysis Status: Acute Assessment and Plan: CONTINUE HEMODIALYSIS NEPHROLOGY CONSULT (4) Type 2 diabetes mellitus without complications: Qualifiers: Diabetes mellitus chcf insulin use: without buttermaker use Qualified Code(s): E11.9 - Type 2 diabetes mellitus without complications Code(s): E11.9 - Type 2 diabetes mellitus without complications Status: Acute Assessment and Plan: CONTINUE HOME MEDS (5) TELMA on CPAP: Code(s): G47.33 - Obstructive sleep apnea (adult) (pediatric) Status: Acute Assessment and Plan: CONTINUE CPAP (6) Acute on chronic anemia: Code(s): D64.9 - Anemia, unspecified Status: Acute Assessment and Plan: WILL TRANSFUSE as needed fobt negative LIkely chronic disease and ESRD Subjective Date/time seen: 06/04/23 10:25 Interval history: no new complaints Exam Narrative: PATIENT IS LAYING IN A STRETCHER Const: General: comfortable, no acute distress, well developed, alert, awake and average body habitus Nutritional Appearance: average body habitus Orientation/consciousness: patient oriented x3 HENMT: Head: normal to inspection, normocephalic, atraumatic and hematoma right frontal Ears: hearing grossly normal bilaterally Face/Nose/Sinus: normal facial exam Face and sinus: normal facial exam Eyes: General: appearance normal, both eyes and all related structures Pupils: Equal, round and reactive pupils present EOM: EOMs intact bilaterally Neck: Neck: full ROM, no lymphadenopathy and no JVD Thyroid: thyroid normal Lymphatic: no lymphadenopathy noted Resp: Effort & Inspection: normal respiratory effort and able to speak in complete sentences Auscultation: clear to auscultation bilaterally Cardio: Jugular venous distension: no JVD Rate: regular rate Rhythm: regular rhythm Heart sounds: S1 normal heart sound present and S2 normal heart sound present : General: Yes deferred Skin: Rashes: no rashes Wounds: no wounds Neuro: General: patient oriented x3, CN's II-XI intact bilaterally and Unable to assess gait Cranial nerves: Yes CN's II-XII intact bilaterally and Yes Equal, round and reactive pupils present Cognition (Neuro): normal cognition Speech: normal speech Gait exam (Neuro): Unable to assess gait and Other gait observations present (USES WHEELCHAIR) Motor exam (neuro): 5/5 motor strength present throughout Sensory Exam: No Sensory deficit (Neuro) Extrem: General: normal to inspection, full ROM, no joint enlargement and no pedal edema Objective Data Vital Signs Vital Signs: Vital Signs - 24 hr 06/03/23 10:31 06/03/23 11:30 06/03/23 13:33 Temperature 97.5 F L 97.4 F L 97.6 F Pulse Rate 73 64 61 Respiratory Rate 20 18 16 Blood Pressure 153/64 H 148/62 H 152/60 H Pulse Oximetry 94 97 96 Oxygen Delivery 06/03/23 11:31 06/03/23 13:41 06/03/23 12:01 Temperature 97.6 F 97.1 F L Pulse Rate 61 63 65 Respiratory Rate 16 20 Blood Pressure 152/60 H 155/67 H Pulse Oximetry 96 95 Oxygen Delivery 06/03/23 16:04 06/03/23 19:42 06/03/23 19:54 Temperature 97.9 F Pulse Rate 65 68 68 Respiratory Rate
[2023-06-04] MEDS: EPOETIN ALFA 20,000 UNITS/ML VIAL 20000 UNITS IV PUSH (11:04)
[2023-06-04] MEDS: GABAPENTIN 100 MG CAPSULE PO ×2 (13:13→17:06)
[2023-06-04] MEDS: SERTRALINE HCL 25 MG TABLET PO (13:13)
[2023-06-04] MEDS: buPROPion HCL 75 MG TABLET PO ×2 (13:13→20:13)
[2023-06-04] MEDS: INSULIN GLARGINE (*BKC) 100 UNITS/ML 18 UNITS SUB-Q (13:16)
[2023-06-04] MEDS: INSULIN ASPART (*BKC) 100 UNITS/ML 10 UNITS SUB-Q (13:17)
[2023-06-04 13:23] LABS: Glucose Point of Care 121 mg/dl (65-105)
[2023-06-04 16:43] LABS: Glucose Point of Care 85 mg/dl (65-105)
[2023-06-04] MEDS: rOPINIRole HCL 0.5 MG TABLET PO (20:13)
[2023-06-04] MEDS: ACETAMINOPHEN 325 MG TABLET 650 MG PO (20:15)
[2023-06-04 20:19] LABS: Glucose Point of Care 115 mg/dl (65-105)
[2023-06-05] VITALS (12 sets, daily range): BP systolic 152–166; BP diastolic 57–72; PULSE 65–82; RESP 14–18; TEMP 36.6–37.3; O2SAT 90–92
[2023-06-05 07:47] LABS: Glucose Point of Care 73 mg/dl (65-105)
[2023-06-05 08:04] LABS: Mean Corpuscular HGB Conc 31.7 g/dl (32-36); Mean Corpuscular Hemoglobin 30.4 pg (26-34); Mean Corpuscular Volume 95.9 fl (80-100); Mean Platelet Volume 9.9 fl (7.4-10.4); Platelet Count Result 345 k/mm3 (150-375); Red Blood Count 2.17 M/mm3 (4.6-6.20); Red Cell Distribution Width 16.9 % (11.5-14.5); White Blood Count 7.6 K/mm3 (4.5-10.0)
[2023-06-05 08:19] LABS: Hemoglobin 6.6 g/dL (14.0-18.0)
[2023-06-05 08:20] LABS: Hematocrit 20.8 % (42.0-52.0)
[2023-06-05] MEDS: SERTRALINE HCL 25 MG TABLET PO (10:04)
[2023-06-05] MEDS: GABAPENTIN 100 MG CAPSULE PO ×2 (10:05→17:12)
[2023-06-05] MEDS: buPROPion HCL 75 MG TABLET PO ×2 (10:05→20:05)
--- NOTE | 2023-06-05 10:22 | PM.PNNEP ---
Progress Note: A&P Assessment and Plan (1) End stage renal disease: Code(s): N18.6 - End stage renal disease Status: Chronic Assessment and Plan: HD tomorrow continue M/W/F dialysis schedule while hospitalized follow electrolytes, volume status, and clearance (2) Anemia: Code(s): D64.9 - Anemia, unspecified Status: Chronic Assessment and Plan: H/H quite low on admission related in part to ESRD; other factors involved? PRBC transfusion per protocol (2units of PRBC given so far and planning another 1 today) Epogen with HD guaiac negative follow trend of H/H (3) Accidental fall from wheelchair: Qualifiers: Encounter type: initial encounter Qualified Code(s): W05.0XXA - Fall from non-moving wheelchair, initial encounter Code(s): W05.0XXA - Fall from non-moving wheelchair, initial encounter Status: Acute Assessment and Plan: no acute injury by imaging to date fall precautions PT/OT as tolerated (4) Diastolic congestive heart failure: Qualifiers: Heart failure chronicity: acute on chronic Qualified Code(s): I50.33 - Acute on chronic diastolic (congestive) heart failure Code(s): I50.30 - Unspecified diastolic (congestive) heart failure Status: Acute Assessment and Plan: compensated at this time fluid removal with dialysis to maintain euvolemia (5) Hypertension: Qualifiers: Hypertension type: primary hypertension Qualified Code(s): I10 - Essential (primary) hypertension Code(s): I10 - Essential (primary) hypertension Status: Chronic Assessment and Plan: reasonable control follow trend of hemodynamics (6) Type 2 diabetes mellitus: Code(s): E11.9 - Type 2 diabetes mellitus without complications Status: Chronic Assessment and Plan: follow accu-cheks glycemic control per hospitalists Discussed case with Dr. Manzo Will continue to follow. Subjective Date/time seen: 06/05/23 10:22 Interval history: Follow-up for end-stage renal disease on hemodialysis. Tolerated hemodialysis treatment yesterday without any issues or problems; H/H low again this AM so to get another PRBC transfusion today; otherwise, feels reasonably well; no apparent distress voiced at the time of my visit. Exam Narrative: General: elderly but WD/WN male in NAD Heart: normal S1 and S2; no rub Lungs: clear anteriorly, decreased at bases Abdomen: soft, nontender, nondistended, positive bowel sounds Extremities: no cyanosis or clubbing, trace edema Skin: warm and intact Objective Data Vital Signs Vital Signs: Vital Signs Temp Pulse Resp BP Pulse Ox 06/05/23 08:00 77 06/05/23 04:43 98.2 F 78 14 158/57 H 90 06/05/23 04:00 82 06/05/23 00:00 74 06/04/23 20:00 90 06/04/23 20:01 98.2 F 80 16 160/64 H 91 06/04/23 16:00 73 06/04/23 14:33 97.8 F 74 18 161/62 H 93 06/04/23 12:00 72 06/04/23 12:43 97.9 F 78 16 154/57 H 06/04/23 12:31 75 146/59 H 06/04/23 12:20 72 160/64 H 06/04/23 12:00 70 162/76 H 06/04/23 11:40 71 167/63 H Intake/Output Intake/Output: Intake & Output 06/02/23 06/03/23 06/04/23 06/05/23 23:59 23:59 23:59 23:59 Intake Total 1520 960 600 Output Total 450 3000 Balance 1070 -2040 600 Meds/Results Medications: Active Medications Generic Name Dose Route Start Last Admin Trade Name Freq PRN Reason Stop Dose Admin Acetaminophen 650 mg 06/03/23 09:14 06/04/23 20:15 Acetaminophen 325 Mg Tablet PO 650 mg Q6H PRN Administration Mild Pain (1-3) or Fever Bupropion HCl 75 mg 06/03/23 09:00 06/05/23 10:05 Bupropion Hcl 75 Mg Tablet PO 75 mg Q12HR LUX Administration Calcium Carbonate 500 mg 06/03/23 09:00 06/05/23 10:04 Calcium/Vitamin D 500 Mg Tablet PO 500 mg QAM LUX Administration Gabapentin
[2023-06-05 10:25] LABS: Albumin Level 3.3 g/dL (3.5-5.1); Anion Gap 7 mmol/L (8-16); Blood Urea Nitrogen 35 mg/dL (9-20); Calcium 8.1 mg/dL (8.4-10.2); Carbon Dioxide 28 mmol/L (22-30); Chloride 103 mmol/L (98-107); Estimated CRCL calculation 22 ml/min; Estimated Glomerular Filt Rate 24; Glucose 73 mg/dL (65-110); Phosphorus 3.7 mg/dL (2.5-4.5); Sodium 138 mmol/L (137-145)
[2023-06-05 11:47] LABS: Glucose Point of Care 230 mg/dl (65-105)
[2023-06-05] MEDS: INSULIN ASPART (*BKC) 100 UNITS/ML 10 UNITS SUB-Q ×2 (12:01→17:12)
--- NOTE | 2023-06-05 12:26 | PM.IMPN ---
Progress Note: A&P Assessment and Plan (1) Accidental fall from wheelchair: Qualifiers: Encounter type: initial encounter Qualified Code(s): W05.0XXA - Fall from non-moving wheelchair, initial encounter Code(s): W05.0XXA - Fall from non-moving wheelchair, initial encounter Status: Acute Assessment and Plan: NO ACUTE FRACTURES FALL PRECAUTIONS (2) Closed head injury: Qualifiers: Encounter type: initial encounter Qualified Code(s): S09.90XA - Unspecified injury of head, initial encounter Code(s): S09.90XA - Unspecified injury of head, initial encounter Status: Acute Assessment and Plan: CONTINUE TO MONITOR (3) ESRD on hemodialysis: Code(s): N18.6 - End stage renal disease; Z99.2 - Dependence on renal dialysis Status: Acute Assessment and Plan: CONTINUE HEMODIALYSIS NEPHROLOGY CONSULT (4) Type 2 diabetes mellitus without complications: Qualifiers: Diabetes mellitus intermediate insulin use: without termite inspector use Qualified Code(s): E11.9 - Type 2 diabetes mellitus without complications Code(s): E11.9 - Type 2 diabetes mellitus without complications Status: Acute Assessment and Plan: CONTINUE HOME MEDS (5) TELMA on CPAP: Code(s): G47.33 - Obstructive sleep apnea (adult) (pediatric) Status: Acute Assessment and Plan: CONTINUE CPAP (6) Acute on chronic anemia: Code(s): D64.9 - Anemia, unspecified Status: Acute Assessment and Plan: WILL TRANSFUSE as needed fobt negative LIkely chronic disease and ESRD can dc home tomorrow if hgb stable Subjective Date/time seen: 06/05/23 12:26 Interval history: Denies any new complaints. Denies chest pain or shortness of breath Exam Narrative: PATIENT IS LAYING IN A STRETCHER Const: General: comfortable, no acute distress, well developed, alert, awake and average body habitus Nutritional Appearance: average body habitus Orientation/consciousness: patient oriented x3 HENMT: Head: normal to inspection, normocephalic, atraumatic and hematoma right frontal Ears: hearing grossly normal bilaterally Face/Nose/Sinus: normal facial exam Face and sinus: normal facial exam Eyes: General: appearance normal, both eyes and all related structures Pupils: Equal, round and reactive pupils present EOM: EOMs intact bilaterally Neck: Neck: full ROM, no lymphadenopathy and no JVD Thyroid: thyroid normal Lymphatic: no lymphadenopathy noted Resp: Effort & Inspection: normal respiratory effort and able to speak in complete sentences Auscultation: clear to auscultation bilaterally Cardio: Jugular venous distension: no JVD Rate: regular rate Rhythm: regular rhythm Heart sounds: S1 normal heart sound present and S2 normal heart sound present : General: Yes deferred Skin: Rashes: no rashes Wounds: no wounds Neuro: General: patient oriented x3, CN's II-XI intact bilaterally and Unable to assess gait Cranial nerves: Yes CN's II-XII intact bilaterally and Yes Equal, round and reactive pupils present Cognition (Neuro): normal cognition Speech: normal speech Gait exam (Neuro): Unable to assess gait and Other gait observations present (USES WHEELCHAIR) Motor exam (neuro): 5/5 motor strength present throughout Sensory Exam: No Sensory deficit (Neuro) Extrem: General: normal to inspection, full ROM, no joint enlargement and no pedal edema Objective Data Vital Signs Vital Signs: Vital Signs - 24 hr 06/04/23 12:31 06/04/23 12:43 06/04/23 14:33 Temperature 97.9 F 97.8 F Pulse Rate 75 78 74 Respiratory Rate 16 18 Blood Pressure 146/59 H 154/57 H 161/62 H Pulse Oximetry 93 Oxygen Delivery 06/04/23 16:00 06/04/23 20:01 06/04/23 20:00 Temperature 98.2 F Pulse Rate 73 80 90 Respiratory Rate 16 Blood Pressure 160/64 H Pulse Oximetry 91 Oxygen Delivery 06/05/23 00:00 06/05/23 04:00 06/05/23 04:43 Temperat
[2023-06-05 16:56] LABS: Glucose Point of Care 101 mg/dl (65-105)
[2023-06-05] MEDS: ACETAMINOPHEN 325 MG TABLET 650 MG PO (20:05)
[2023-06-05] MEDS: rOPINIRole HCL 0.5 MG TABLET PO (20:05)
[2023-06-05] MEDS: GLUCOSE ORAL GEL 15 GM OF GLUCSE IN 37.5 GM TUBE PO (21:10)
[2023-06-05 21:58] LABS: Glucose Point of Care 136 mg/dl (65-105)
[2023-06-05 21:58] LABS: Glucose Point of Care 32 mg/dl (65-105)
[2023-06-05 21:58] LABS: Glucose Point of Care 51 mg/dl (65-105)
[2023-06-05 21:58] LABS: Glucose Point of Care 70 mg/dl (65-105)
[2023-06-05 21:58] LABS: Glucose Point of Care 34 mg/dl (65-105)
[2023-06-06] VITALS (25 sets, daily range): BP systolic 147–180; BP diastolic 57–74; PULSE 65–78; RESP 16–18; TEMP 36.3–37; O2SAT 18–95
--- NOTE | 2023-06-06 02:19 | PC.NURSE ---
Rebecca called nurse and gave telephone order to decreased lantus from 18 units daily to 10 units daily and to change his novolog 10 units TID with meals to 8 units TID with meals.
[2023-06-06 06:04] LABS: Hematocrit 24.2 % (42.0-52.0); Hemoglobin 7.8 g/dL (14.0-18.0); Mean Corpuscular HGB Conc 32.2 g/dl (32-36); Mean Corpuscular Volume 93.1 fl (80-100); Mean Platelet Volume 9.6 fl (7.4-10.4); Platelet Count Result 326 k/mm3 (150-375); Red Cell Distribution Width 17.3 % (11.5-14.5); White Blood Count 7.6 K/mm3 (4.5-10.0)
[2023-06-06 06:19] LABS: Potassium 4.3 mmol/L (3.4-5.0)
[2023-06-06 06:25] LABS: Albumin Level 3.3 g/dL (3.5-5.1); Anion Gap 7 mmol/L (8-16); Blood Urea Nitrogen 47 mg/dL (9-20); Calcium 7.9 mg/dL (8.4-10.2); Carbon Dioxide 28 mmol/L (22-30); Chloride 98 mmol/L (98-107); Estimated CRCL calculation 19 ml/min; Estimated Glomerular Filt Rate 20; Glucose 176 mg/dL (65-110); Phosphorus 4.1 mg/dL (2.5-4.5); Sodium 133 mmol/L (137-145)
[2023-06-06] MEDS: GABAPENTIN 100 MG CAPSULE PO ×2 (08:30→17:52)
[2023-06-06] MEDS: SERTRALINE HCL 25 MG TABLET PO (08:30)
[2023-06-06] MEDS: buPROPion HCL 75 MG TABLET PO ×2 (08:30→19:35)
[2023-06-06 08:34] LABS: Glucose Point of Care 166 mg/dl (65-105)
[2023-06-06] MEDS: INSULIN ASPART (*BKC) 100 UNITS/ML 8 UNITS SUB-Q ×3 (08:41→17:52)
[2023-06-06] MEDS: INSULIN GLARGINE (*BKC) 100 UNITS/ML 10 UNITS SUB-Q (08:42)
[2023-06-06 11:18] LABS: Iron 139 ug/dL (49-181)
[2023-06-06 11:28] LABS: Percent Iron Saturation 72 % (20-50)
[2023-06-06 11:57] LABS: Glucose Point of Care 132 mg/dl (65-105)
--- NOTE | 2023-06-06 13:12 | PM.PNNEP ---
Progress Note: A&P Assessment and Plan (1) End stage renal disease: Code(s): N18.6 - End stage renal disease Status: Chronic Assessment and Plan: HD tomorrow continue M/W/F dialysis schedule while hospitalized follow electrolytes, volume status, and clearance (2) Anemia: Code(s): D64.9 - Anemia, unspecified Status: Chronic Assessment and Plan: H/H quite low on admission related in part to ESRD; other factors involved? PRBC transfusion per protocol (2units of PRBC given so far and planning another 1 today) Epogen with HD guaiac negative follow trend of H/H (3) Accidental fall from wheelchair: Qualifiers: Encounter type: initial encounter Qualified Code(s): W05.0XXA - Fall from non-moving wheelchair, initial encounter Code(s): W05.0XXA - Fall from non-moving wheelchair, initial encounter Status: Acute Assessment and Plan: no acute injury by imaging to date fall precautions PT/OT as tolerated (4) Diastolic congestive heart failure: Qualifiers: Heart failure chronicity: acute on chronic Qualified Code(s): I50.33 - Acute on chronic diastolic (congestive) heart failure Code(s): I50.30 - Unspecified diastolic (congestive) heart failure Status: Acute Assessment and Plan: compensated at this time fluid removal with dialysis to maintain euvolemia (5) Hypertension: Qualifiers: Hypertension type: primary hypertension Qualified Code(s): I10 - Essential (primary) hypertension Code(s): I10 - Essential (primary) hypertension Status: Chronic Assessment and Plan: reasonable control follow trend of hemodynamics (6) Type 2 diabetes mellitus: Code(s): E11.9 - Type 2 diabetes mellitus without complications Status: Chronic Assessment and Plan: follow accu-cheks glycemic control per hospitalists Will continue to follow. Subjective Date/time seen: 06/06/23 13:12 Interval history: Follow-up for end-stage renal disease on hemodialysis. Tolerating hemodialysis treatment at the time of my visit (seen on HD at 1:00PM); tolerated PRBC transfusion yesterday without any issues or problems; no apparent distress voiced; H/H appears stable. Exam Narrative: General: elderly but WD/WN male in NAD Heart: normal S1 and S2; no rub Lungs: clear anteriorly, decreased at bases Abdomen: soft, nontender, nondistended, positive bowel sounds Extremities: no cyanosis or clubbing, trace edema Skin: no rash Objective Data Vital Signs Vital Signs: Vital Signs Temp Pulse Resp BP Pulse Ox O2 Del Method O2 Flow Rate 06/06/23 12:34 97.4 F L 72 16 155/58 H 06/06/23 12:00 73 06/06/23 13:01 75 158/64 H 06/06/23 12:46 70 163/74 H 06/06/23 12:34 97.4 F L 72 16 155/58 H 06/06/23 08:00 76 06/06/23 08:30 Room Air 06/06/23 05:48 97.7 F 74 164/64 H 18 L 06/06/23 04:00 74 06/06/23 00:00 76 06/05/23 20:00 80 06/05/23 20:04 99.2 F 81 18 163/67 H 92 Intake/Output Intake/Output: Intake & Output 06/03/23 06/04/23 06/05/23 06/06/23 23:59 23:59 23:59 23:59 Intake Total 1852 732 3421 1210 Output Total 450 3000 400 500 Balance 1070 -2040 1112 710 Meds/Results Medications: Active Medications Generic Name Dose Route Start Last Admin Trade Name Mark PRN Reason Stop Dose Admin Acetaminophen 650 mg 06/03/23 09:14 06/05/23 20:05 Acetaminophen 325 Mg Tablet PO 650 mg Q6H PRN Administration Mild Pain (1-3) or Fever Bupropion HCl 75 mg 06/03/23 09:00 06/06/23 08:30 Bupropion Hcl 75 Mg Tablet PO 75 mg Q12HR LUX Administration Calcium Carbonate 500 mg 06/03/23 09:00 06/06/23 08:30 Calcium/Vitamin D 500 Mg Tablet PO 500 mg QAM LUX Administration Dextrose 12.5 gm 06/05/23 20:54 Dextrose 50% 25 Gm/50 Ml Syringe IV PU
--- NOTE | 2023-06-06 13:41 | PM.DS ---
DS: Admitting Diagnosis Discharge Date 06/06/23 Admitting Diagnosis fall DS: Discharge Diagnosis Discharge Diagnosis (1) Accidental fall from wheelchair: Qualifiers: Encounter type: initial encounter Qualified Code(s): W05.0XXA - Fall from non-moving wheelchair, initial encounter Code(s): W05.0XXA - Fall from non-moving wheelchair, initial encounter Status: Acute (2) Acute on chronic anemia: Code(s): D64.9 - Anemia, unspecified Status: Acute DS: Summary Hospital Course Hospital Course: Assessment and Plan (1) Accidental fall from wheelchair: ?Qualifiers: ?Encounter type:?initial encounter? Qualified Code(s):?W05.0XXA - Fall from non-moving wheelchair, initial encounter ?Code(s): W05.0XXA - Fall from non-moving wheelchair, initial encounter ?Status:?Acute ?Assessment and Plan: NO ACUTE FRACTURES FALL PRECAUTIONS (2) Closed head injury: ?Qualifiers: ?Encounter type:?initial encounter? 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 Qualified Code(s):?E11.9 - Type 2 diabetes mellitus without complications ?Code(s): E11.9 - Type 2 diabetes mellitus without complications ?Status:?Acute ?Assessment and Plan: CONTINUE HOME MEDS (5) TELMA on CPAP: ?Code(s): G47.33 - Obstructive sleep apnea (adult) (pediatric) ?Status:?Acute ?Assessment and Plan: CONTINUE CPAP (6) Acute on chronic anemia: ?Code(s): D64.9 - Anemia, unspecified ?Status:?Acute ?Assessment and Plan: s/p 1 unit pRBC LIkely chronic disease and ESRD continue Epoigen with dialysis f/u with Nephrology as instructed F/u with PCP in 3-5 days and nephrology as instructed Time Spent with Patient Time attestation: Total time spent providing and/or coordinating discharge services: DS: Data Data Completed and Pending Labs on day of discharge: Labs from last 24 hours 06/06/23 06/06/23 06/06/23 11:53 08:15 05:58 WBC 7.6 RBC 2.60 L Hgb 7.8 L Hct 24.2 L MCV 93.1 MCH 30.0 MCHC 32.2 RDW 17.3 H Plt Count 326 MPV 9.6 Sodium 133 L Potassium 4.3 Chloride 98 Carbon Dioxide 28 Anion Gap 7 L BUN 47 H D Creatinine 3.10 H Estim Creat Clear Calc 19 Estimated GFR 20 L Glucose 176 H POC Capillary Glucose 132 H 166 H Calcium 7.9 L Phosphorus 4.1 Iron TIBC % Saturation Ferritin Albumin 3.3 L Crossmatch 06/06/23 06/05/23 06/05/23 05:55 21:55 20:47 WBC RBC Hgb Hct MCV MCH MCHC RDW Plt Count MPV Sodium Potassium Chloride Carbon Dioxide Anion Gap BUN Creatinine Estim Creat Clear Calc Estimated GFR Glucose POC Capillary Glucose 136 H 70 Calcium Phosphorus Iron 139 TIBC 192 L % Saturation 72 H Ferritin 1140.00 H Albumin Crossmatch 06/05/23 06/05/23 06/05/23 20:24 20:01 19:59 WBC RBC Hgb Hct MCV MCH MCHC RDW Plt Count MPV Sodium Potassium Chloride Carbon Dioxide Anion Gap BUN Creatinine Estim Creat Clear Calc Estimated GFR Glucose POC Capillary Glucose 51 L* 32 L* 34 L* Calcium Phosphorus Iron TIBC % Saturation Ferritin Albumin Crossmatch 06/05/23 06/02/23 16:36 21:49 WBC RBC Hgb Hct MCV
[2023-06-06] MEDS: EPOETIN ALFA 20,000 UNITS/ML VIAL 20000 UNITS IV PUSH (15:40)
[2023-06-06] MEDS: SODIUM CHLORIDE 0.9% IV 1,000 ML 999 ML IV CONT (15:41)
[2023-06-06 16:10] LABS: SARS-CoV-2 RNA PCR Negative (Negative)
[2023-06-06 17:10] LABS: Glucose Point of Care 105 mg/dl (65-105)
[2023-06-06] MEDS: ACETAMINOPHEN 325 MG TABLET 650 MG PO (19:35)
[2023-06-06] MEDS: rOPINIRole HCL 0.5 MG TABLET PO (19:35)
[2023-06-06 19:55] LABS: Glucose Point of Care 82 mg/dl (65-105)
== END 2023-06-06 21:00 | DRG 291 ==
LOC: ANHED 06-03 00:51 → ANH2MED 06-03 01:19
PROVIDERS: Chiropractor; Internal Medicine Nephrology; Admitting Provider Internal Medicine; Emergency Provider Physician Assistant; PCP Hospitalist; Visit Provider Internal Medicine
DX: I13.2 Hypertensive heart and chronic kidney disease with heart failure and with stage 5 chronic kidney disease, or end stage renal disease (principal); N18.6 End stage renal disease; I50.32 Chronic diastolic (congestive) heart failure; D63.1 Anemia in chronic kidney disease; E11.22 Type 2 diabetes mellitus with diabetic chronic kidney disease; E11.42 Type 2 diabetes mellitus with diabetic polyneuropathy; J44.9 Chronic obstructive pulmonary disease, unspecified; S51.012A Laceration without foreign body of left elbow, initial encounter; S00.83XA Contusion of other part of head, initial encounter; G47.33 Obstructive sleep apnea (adult) (pediatric); F32.A Depression, unspecified; W05.0XXA Fall from non-moving wheelchair, initial encounter; Z99.2 Dependence on renal dialysis; Z79.4 Long term (current) use of insulin; Z11.52 Encounter for screening for COVID-19; Z87.891 Personal history of nicotine dependence; Z79.82 Long term (current) use of aspirin
CPT/HCPCS: 36415; 36430; 70450; 72125; 73110; 80048; 80053; 80069; 82274; 82607; 82728; 82746; 82948; 83540; 83550; 83615; 84443; 84466; 85014; 85018; 85025; 85027; 85046; 86706; 86850; 86900; 86901; 86923; 87340; 87635; 99285; A9270; G0257; G0378; J1644; J1815; J7030; J7050; P9016; Q4081

== ENCOUNTER 2023-06-29 13:33 | Inpatient (IN) | payer MEDICARE, SELFPAY ==
[2023-06-29] VITALS (18 sets, daily range): BP systolic 119–162; BP diastolic 47–100; PULSE 62–74; RESP 14–20; TEMP 36.3–37.2; O2SAT 92–98; BMI 28.8
--- NOTE | ~2023-06-29 | XR_ITS ---
EXAMINATION: XR chest 1V portable DATE: 06/30/2023 05:30 INDICATION: Anemia. End-stage renal disease. TECHNIQUE: A single frontal view of the chest was obtained. COMPARISON: Chest single view 04/08/2023, CT abdomen and pelvis 03/27/2023 FINDINGS: There is a diffuse interstitial pattern, consistent mild pulmonary edema. No pleural effusi on or pneumothorax. Cardiomegaly is noted. A right internal jugular central venous catheter is seen w ith tip in the right atrium. IMPRESSION: 1. Mild pulmonary edema. 2. Cardiomegaly. Reviewed, dictated and finalized at location E. 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
[2023-06-29 13:50] LABS: Basophils Absolute Auto 0.1 K/mm3 (0.0-0.1); Basophils Percent Auto 1.1 % (0.2-1.2); Eosinophils Absolute Auto 0.5 K/mm3 (0-0.3); Eosinophils Percent Auto 6.3 % (0-4.4); Immature Granulocyte Absolute 0.12 K/mm3 (0.00-0.031); Immature Granulocyte Percent A 1.5 % (0-0.5); Lymphocytes Absolute Auto 1.67 K/mm3 (0.9-3.2); Lymphocytes Percent Auto 20.7 % (18.3-44.2); Mean Corpuscular HGB Conc 30.9 g/dl (32-36); Mean Corpuscular Hemoglobin 29.4 pg (26-34); Mean Corpuscular Volume 95.2 fl (80-100); Mean Platelet Volume 9.3 fl (7.4-10.4); Monocytes Absolute Auto 0.8 K/mm3 (0.1-0.6); Monocytes Percent Auto 9.9 % (2.6-8.5); Neutrophils Absolute Auto 4.9 K/mm3 (1.3-6.7); Neutrophils Percent Auto 60.5 % (45.5-73.1); Nucleated Red Blood Cells Perc 0.2 % (0.0-0.2); Platelet Count Result 432 k/mm3 (150-375); Red Blood Count 1.87 M/mm3 (4.6-6.20); Red Cell Distribution Width 17.5 % (11.5-14.5); White Blood Count 8.1 K/mm3 (4.5-10.0)
[2023-06-29 14:00] LABS: Alanine Aminotransferase 17 U/L (6-50); Albumin Level 3.5 g/dL (3.5-5.1); Alkaline Phosphatase 112 U/L (38-126); Anion Gap 7 mmol/L (8-16); Aspartate Amino Transferase 22 U/L (17-59); Bilirubin,Total 0.5 mg/dL (0.2-1.3); Blood Urea Nitrogen 19 mg/dL (9-20); Calcium 7.8 mg/dL (8.4-10.2); Carbon Dioxide 32 mmol/L (22-30); Chloride 97 mmol/L (98-107); Estimated CRCL calculation 33 ml/min; Estimated Glomerular Filt Rate 39; Glucose 199 mg/dL (65-110); Potassium 3.7 mmol/L (3.4-5.0); Sodium 136 mmol/L (137-145)
[2023-06-29 14:14] LABS: Hemoglobin 5.5 g/dL (14.0-18.0)
[2023-06-29 14:15] LABS: Hematocrit 17.8 % (42.0-52.0)
--- NOTE | 2023-06-29 14:19 | ED.RECABL ---
HPI - Recheck/Abnormal Lab/Rx General Chief Complaint: Recheck/Abnormal Lab/Rx Stated Complaint: low hgb from dialysis Time Seen by Provider: 06/29/23 14:19 Source: patient Mode of arrival: ambulatory Limitations: no limitations History of Present Illness HPI narrative: Patient finished his dialysis today then referred to the ED because of low hemoglobin. Patient is asymptomatic. 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 Related Data Home Medications Medication Instructions Recorded Confirmed gabapentin 100 mg capsule 100 mg PO BID 11/27/22 06/20/23 pantoprazole 40 mg tablet,delayed 40 mg PO .THREE TIMES WEEKLY 01/13/23 06/20/23 release amlodipine 10 mg tablet 10 mg PO .SUN/E/IVY/SAT 02/18/23 06/20/23 insulin glargine 100 unit/mL (3 18 unit subcut DAILY 03/23/23 06/20/23 mL) subcutaneous pen (Lantus Solostar U-100 Insulin) calcium carbonate 500 mg-vitamin 1 ea PO DAILY 06/03/23 06/20/23 D3 5 mcg (200 unit) oral powder pack (Oyster Shell Calcium) carvedilol 25 mg tablet 25 mg PO .SUN/SUN/IVY/SAT 06/03/23 06/20/23 carvedilol 25 mg tablet 25 mg PO HS 06/03/23 06/20/23 cyanocobalamin (vitamin B-12) 1,000 mcg .Q3WKS 06/03/23 06/20/23 1,000 mcg/mL injection syringe hydralazine 25 mg tablet 25 mg PO .SUN//IVY/SAT 06/03/23 06/20/23 hydralazine 25 mg tablet 25 mg PO BID 06/03/23 06/20/23 insulin lispro 100 unit/mL 10 unit subcut TIDWM 06/03/23 06/20/23 subcutaneous solution (Humalog U-100 Insulin) Allergies Allergy/AdvReac Type Severity Reaction Status Date / Time LAUREN Inhibitors Allergy Cough Verified 06/29/23 14:17 enalapril Allergy Cough Verified 06/29/23 14:17 lisinopril Allergy Cough Verified 06/29/23 14:17 quinapril Allergy Cough Verified 06/29/23 14:17 Review of Systems Review of Systems: All systems reviewed & are unremarkable except as noted in HPI and below PMFSH Past Medical History Medical History Arthritis Chronic anemia Chronic kidney disease Chronic obstructive pulmonary disease Depression Diabetic peripheral neuropathy Diastolic congestive heart failure Hypertension Insulin dependent diabetes mellitus Obstructive sleep apnea Surgical History Surgical History History of cholecystectomy History of foot surgery History of penile implant Family History Family History Father Cancer Diabetes mellitus Mother Hyperlipidemia Hypertension Heart attack Sibling Hx of CABG Colon cancer Social History Social History Social History: Surrogate medical decision maker: Palmira Worthington, granddaughter. Code status: Full code. Smoking packs per day: 1 Smoking cigarettes per day: 20.0 Years smoked: 2 Smoking pack-years: 2.00 Smoking status: Former smoker Second hand tobacco smoke exposure: Yes Alcohol intake: former Drinks per week: 1 Alcohol use details: Occasional glass a wine though rare. Substance use: never Substance use type: does not use Lack of Transportation: No Lack of Food: Never True Current Housing: I Have Housing Concerned About Future Housing: No Difficulty Paying Gas/Electric Bills: No Difficulty Paying for Meds: No Currently Unemployed: No Education: High School Diploma/GED Difficulty w/ Childcare or Family Care: No Living arrangements: with family Occupation/Education: retired Additional occupation/education comments: Retired from [employer]. Spiritual care concerns: No Exam Narrative: General appearance: Well-developed, well-nourished Skin: Pale Head: Normocephalic, nontraumatic Eyes: Clear conjunct
[2023-06-29] MEDS: PANTOPRAZOLE SODIUM IV 40 MG VIAL IV PUSH (14:35)
[2023-06-29 15:29] LABS: Immature Reticulocyte Fraction 28.2 % (3.0-15.9); Reticulocyte Hemoglobin Conten 37.8 pg (28.2-35.7); Reticulocytes Absolute 0.02 M/mm3 (0.02-0.1)
[2023-06-29] MEDS: SODIUM CHLORIDE 0.9% IV 250 ML 30 ML IV CONT (15:33)
[2023-06-29] MEDS: TUBING, BLOOD PLUM PUMP TUBING 1 EACH XX (15:34)
--- NOTE | 2023-06-29 16:01 | PM.CNNEP ---
Assessment and Plan Assessment and plan (1) End stage renal disease: Code(s): N18.6 - End stage renal disease Status: Chronic Assessment and Plan: plan next HD treatment on Sunday continue M// dialysis schedule while hospitalized follow electrolytes, volume status, and clearance (2) Anemia: Code(s): D64.9 - Anemia, unspecified Status: Chronic Assessment and Plan: H/H quite low on admission recent hospitalization about a month ago for same issue related in part to ESRD; other factors involved? PRBC transfusion per protocol Epogen with HD consult Hem/Onc (as no evidence of GI bleed/loss) follow trend of H/H (3) Diastolic congestive heart failure: Qualifiers: Heart failure chronicity: acute on chronic Qualified Code(s): I50.33 - Acute on chronic diastolic (congestive) heart failure Code(s): I50.30 - Unspecified diastolic (congestive) heart failure Status: Acute Assessment and Plan: compensated at this time fluid removal with dialysis to maintain euvolemia (4) Hypertension: Qualifiers: Hypertension type: primary hypertension Qualified Code(s): I10 - Essential (primary) hypertension Code(s): I10 - Essential (primary) hypertension Status: Chronic Assessment and Plan: reasonable control follow trend of hemodynamics (5) Type 2 diabetes mellitus: Code(s): E11.9 - Type 2 diabetes mellitus without complications Status: Chronic Assessment and Plan: follow accu-cheks glycemic control per hospitalists I will continue to follow the patient with you while he remains hospitalized and make further recommendations as deemed necessary. Thank you for allowing me to participate in the care of this patient. History of Present Illness Reason for Consult Consult date: 06/29/23 Reason for consult: end stage renal disease Chief Complaint Chief complaint: Anemia/Chronic Renal Failure on Dialysis History of Present Illness Narrative: The patient is a 77-year-old male with a past medical history as outlined below who presented to [facility] Emergency room for severe anemia. The patient had outpatient blood work at his dialysis center earlier this week that showed a hemoglobin of 5.9. He subsequently had a stat blood test done with dialysis earlier today which confirmed his significant/ severe anemia of 5.5. due to this finding, he was sent from his dialysis center to the emergency room after he completed his dialysis treatment. Surprisingly, despite his low hemoglobin, the patient feels reasonably well and has no other acute issues or complaints voiced. He denies any hematochezia or melena and he was. It should be noted the patient was hospitalized about a month ago for an issues similar to this and responded to packed red blood cell transfusions but as he was guaiac negative, the assumption was this was related to his end-stage renal disease. Workup and evaluation emergency room demonstrated the patient be hemodynamically stable and in no acute distress. He was typed and crossed for packed red blood cell transfusion and this was initiated while he was in the emergency room. Once again, he was guaiac negative so the concern was that there may be some other cause to his anemia besides his end-stage renal disease. It was recommended that Hematology/Oncology be consulted for further evaluation. He he is going to be admitted to the hospital for further evaluation and therapy. Renal consultation was requested due to his end-stage renal disease. The patient is quite familiar to me as I take care of his outpatient dialysis needs. He was recently initiated on renal replacement therapy/dialysis approximately 3 months ago when he was admitted here at [facility] with volume overload and symptoms consistent with uremia. As his kidney function has been slowly progressing over the last sever
[2023-06-29 16:12] LABS: Iron 57 ug/dL (49-181)
[2023-06-29 16:21] LABS: Percent Iron Saturation 27 % (20-50)
[2023-06-29] MEDS: buPROPion HCL 75 MG TABLET PO (19:57)
[2023-06-29] MEDS: rOPINIRole HCL 0.5 MG TABLET PO (19:57)
[2023-06-29] MEDS: GABAPENTIN 100 MG CAPSULE PO (19:57)
[2023-06-29 20:03] LABS: Glucose Point of Care 133 mg/dl (65-105)
[2023-06-29 21:47] LABS: Hematocrit 22.7 % (42.0-52.0); Hemoglobin 7.3 g/dL (14.0-18.0)
--- NOTE | 2023-06-30 01:56 | PM.IMHP ---
H&P: HPI History of Present Illness Date/Time: 06/29/23 23:30 Chief Complaint: Low hemoglobin at dialysis Narrative: 77-year-old male with a past medical history of essential hypertension, insulin-dependent diabetes mellitus, diastolic heart failure, chronic kidney disease stage 5, chronic anemia and lung other comorbidities who presented to the ER from [facility] dialysis [place] due to low hemoglobin. The patient's hemoglobin today was 5.4. He reports that he was otherwise asymptomatic and had no complaints. He received 2 units of packed red blood cells with her repeat hemoglobin of 7.3.The patient has heart failure with preserved ejection fraction. Patient currently appears intravascularly volume depleted. Will continue gentle IV fluid hydration as discussed above. Will have a low threshold to discontinue IV fluids. The patient has had multiple hospitalizations for recurrent anemia. Patient has been treated with deep which in a. His guaiac stools have been negative in the past. He was told it was thought his anemia could be due to myeloproliferative process. He reports that he still makes urine 2 to 3 times a day. He occasionally has some dysuria but none recently. Denies any fevers or chills. Denies any respiratory symptoms. She Dialysis Sunday Review of Systems Review of Systems: 12 systems were reviewed with pertinent positives and negatives per HPI. Except as documented in the HPI, all other systems were reviewed and are negative. [facility] Past Medical History Medical History (Updated 06/30/23 @ 02:12 by Mis Santamaria DO) Arthritis Chronic anemia Chronic obstructive pulmonary disease Depression Diabetic peripheral neuropathy Diastolic congestive heart failure Hypertension Insulin dependent diabetes mellitus Obstructive sleep apnea Surgical History Surgical History (Updated 06/30/23 @ 02:17 by Mis Santamaria DO) History of cholecystectomy History of foot surgery History of penile implant Status post cataract extraction of both eyes with insertion of intraocular lens Vascular dialysis catheter in place Family History Family History Father Cancer Diabetes mellitus Mother Hyperlipidemia Hypertension Heart attack Sibling Hx of CABG Colon cancer Social History Social History Social History: Surrogate medical decision maker: Palmira Worthington, granddaughter. Code status: Full code. Smoking packs per day: 1 Smoking cigarettes per day: 20.0 Years smoked: 2 Smoking pack-years: 2.00 Smoking status: Former smoker Second hand tobacco smoke exposure: Yes Alcohol intake: former Drinks per week: 1 Alcohol use details: Occasional glass a wine though rare. Substance use: never Substance use type: does not use Lack of Transportation: No Lack of Food: Never True Current Housing: I Have Housing Concerned About Future Housing: No Difficulty Paying Gas/Electric Bills: No Difficulty Paying for Meds: No Currently Unemployed: No Education: High School Diploma/GED Difficulty w/ Childcare or Family Care: No Living arrangements: with family Occupation/Education: retired Additional occupation/education comments: Retired from [employer]. Spiritual care concerns: No Meds Home Medications and Allergies Home Medications Medication Instructions Recorded Confirmed Type aspirin 81 mg chewable tablet 81 mg PO DAILY@0800 #30 tabs 11/22/22 06/29/23 Rx (Children's Aspirin) bupropion HCl 75 mg tablet 75 mg PO Q12HR #60 tabs 11/22/22 06/29/23 Rx ropinirole 0.5 mg tablet 0.5 mg PO HS #30 tabs 11/22/22 06/29/23 Rx sertraline 50 mg tablet (Zoloft) 25 mg PO QAM #30 tabs 11/22/22 06/29/23 Rx gabapentin 100 mg capsule 100 mg PO BID 11/27/22 06/29/23 History pantoprazole 40 mg tablet,delayed 40 mg PO .THREE TIMES WEEKLY 01/13/23 06/29/23
[2023-06-30 06:00] VITALS: BP 151/59; PULSE 66; RESP 18; TEMP 36.7; O2SAT 90
[2023-06-30 06:06] LABS: Hematocrit 24.1 % (42.0-52.0); Hemoglobin 7.8 g/dL (14.0-18.0); Mean Corpuscular HGB Conc 32.4 g/dl (32-36); Mean Corpuscular Hemoglobin 29.4 pg (26-34); Mean Corpuscular Volume 90.9 fl (80-100); Mean Platelet Volume 9.4 fl (7.4-10.4); Platelet Count Result 426 k/mm3 (150-375); Red Blood Count 2.65 M/mm3 (4.6-6.20); Red Cell Distribution Width 16.8 % (11.5-14.5); White Blood Count 11.1 K/mm3 (4.5-10.0)
[2023-06-30 06:19] LABS: Albumin Level 3.4 g/dL (3.5-5.1); Anion Gap 11 mmol/L (8-16); Blood Urea Nitrogen 28 mg/dL (9-20); Calcium 8.2 mg/dL (8.4-10.2); Carbon Dioxide 28 mmol/L (22-30); Chloride 100 mmol/L (98-107); Estimated CRCL calculation 24 ml/min; Estimated Glomerular Filt Rate 26; Glucose 173 mg/dL (65-110); Magnesium 1.5 mg/dL (1.6-2.3); Phosphorus 3.8 mg/dL (2.5-4.5); Potassium 4.3 mmol/L (3.4-5.0); Sodium 139 mmol/L (137-145)
[2023-06-30 06:50] LABS: Hepatitis B Surface Antigen Negative (Negative)
[2023-06-30 07:09] LABS: Hepatitis B Surface Anti Res Positive
[2023-06-30 08:49] VITALS: PULSE 68
[2023-06-30] MEDS: buPROPion HCL 75 MG TABLET PO ×2 (08:49→20:47)
[2023-06-30] MEDS: hydrALAZINE HCL 25 MG TABLET PO (08:49)
[2023-06-30] MEDS: amLODIPine BESYLATE 5 MG TABLET 10 MG PO (08:49)
[2023-06-30] MEDS: carvediloL 25 MG TABLET PO (08:49)
[2023-06-30] MEDS: hydroCHLOROthiazide 25 MG TABLET PO (08:49)
[2023-06-30] MEDS: SERTRALINE HCL 25 MG TABLET PO (08:49)
[2023-06-30] MEDS: GABAPENTIN 100 MG CAPSULE PO ×2 (08:49→16:14)
[2023-06-30] MEDS: ASPIRIN 81 MG CHEWABLE TABLET PO (08:49)
[2023-06-30 08:50] LABS: Glucose Point of Care 180 mg/dl (65-105)
[2023-06-30] MEDS: INSULIN GLARGINE (*BKC) 100 UNITS/ML 18 UNITS SUB-Q (08:50)
[2023-06-30] MEDS: INSULIN ASPART (*BKC) 100 UNITS/ML 10 UNITS SUB-Q ×2 (08:50→12:23)
[2023-06-30 12:20] LABS: Glucose Point of Care 121 mg/dl (65-105)
--- NOTE | 2023-06-30 13:52 | P.PNNP_ITS ---
Progress Note: A&P Assessment and Plan (1) End stage renal disease: Code(s): N18.6 - End stage renal disease Status: Chronic Assessment and Plan: * Hemodialysis on Sunday. * Volume status looks okay. * Potassium looks good and bicarbonate level is okay as well. (2) Anemia: Code(s): D64.9 - Anemia, unspecified Status: Chronic Assessment and Plan: * H/H quite low on admission * recent hospitalization about a month ago for same issue * related in part to ESRD; other factors involved? * PRBC transfusion x2 yesterday. * Epogen with HD * T sat okay * B12 and folate okay * No black or bloody stools * consult in for Hem/Onc (as no evidence of GI bleed/loss) * Hemoglobin stable today (3) Diastolic congestive heart failure: Qualifiers: Heart failure chronicity: acute on chronic Qualified Code(s): I50.33 - Acute on chronic diastolic (congestive) heart failure Code(s): I50.30 - Unspecified diastolic (congestive) heart failure Status: Acute Assessment and Plan: * compensated at this time * fluid removal with dialysis to maintain euvolemia (4) Hypertension: Qualifiers: Hypertension type: primary hypertension Qualified Code(s): I10 - Essential (primary) hypertension Code(s): I10 - Essential (primary) hypertension Status: Chronic Assessment and Plan: * Systolic 130-160 * On amlodipine, carvedilol, hydralazine. * Check in a.m.. If still high can increase the dose of something. (5) Type 2 diabetes mellitus: Code(s): E11.9 - Type 2 diabetes mellitus without complications Status: Chronic Assessment and Plan: * follow accu-cheks * glycemic control per hospitalists Subjective Date/time seen: 06/30/23 13:52 Interval history: Kenneth is feeling better today. He had 2units of blood last night. He had dialysis yesterday. He denies any black or bloody stools. Review of Systems Cardiovascular: Cardiovascular: Reports no additional cardiovascular complaints Respiratory: Respiratory: Reports no additional respiratory complaints Gastrointestinal: Gastrointestinal: Reports no additional gastrointestinal complaints Genitourinary: Genitourinary: Reports no additional male genitourinary complaints Exam Narrative: WDWN in NAD skin no rash head ncat lungs clear cor reg no rub abd BS+ nontender and soft ext no edema. Objective Data Vital Signs Vital Signs: Vital Signs - 24 hr 06/29/23 14:15 06/29/23 14:38 06/29/23 15:22 Temperature Pulse Rate 67 67 69 Respiratory Rate 17 18 16 Blood Pressure 151/68 H 145/59 H 119/100 H Pulse Oximetry 96 94 92 Oxygen Delivery 06/29/23 15:31 06/29/23 15:46 06/29/23 15:46 Temperature 98.5 F 98.7 F 98.7 F Pulse Rate 74 69 69 Respiratory Rate 17 15 15 Blood Pressure 146/67 H 155/63 H 155/63 H Pulse Oximetry 98 93 93 Oxygen Delivery 06/29/23 16:46 06/29/23 16:46 06/29/23 17:11 Temperature 98.6 F 98.6 F 98.9 F Pulse Rate 70 70 69 Respiratory Rate 16 16 16 Blood Pressure 138/64 138/64 155/62 H Pulse Oximetry 95 95 96 Oxygen Delivery
--- NOTE | 2023-06-30 13:52 | PM.PNNEP ---
Progress Note: A&P Assessment and Plan (1) End stage renal disease: Code(s): N18.6 - End stage renal disease Status: Chronic Assessment and Plan: Hemodialysis on Sunday. Volume status looks okay. Potassium looks good and bicarbonate level is okay as well. (2) Anemia: Code(s): D64.9 - Anemia, unspecified Status: Chronic Assessment and Plan: H/H quite low on admission recent hospitalization about a month ago for same issue related in part to ESRD; other factors involved? PRBC transfusion x2 yesterday. Epogen with HD T sat okay B12 and folate okay No black or bloody stools consult in for Hem/Onc (as no evidence of GI bleed/loss) Hemoglobin stable today (3) Diastolic congestive heart failure: Qualifiers: Heart failure chronicity: acute on chronic Qualified Code(s): I50.33 - Acute on chronic diastolic (congestive) heart failure Code(s): I50.30 - Unspecified diastolic (congestive) heart failure Status: Acute Assessment and Plan: compensated at this time fluid removal with dialysis to maintain euvolemia (4) Hypertension: Qualifiers: Hypertension type: primary hypertension Qualified Code(s): I10 - Essential (primary) hypertension Code(s): I10 - Essential (primary) hypertension Status: Chronic Assessment and Plan: Systolic 130-160 On amlodipine, carvedilol, hydralazine. Check in a.m.. If still high can increase the dose of something. (5) Type 2 diabetes mellitus: Code(s): E11.9 - Type 2 diabetes mellitus without complications Status: Chronic Assessment and Plan: follow accu-cheks glycemic control per hospitalists Subjective Date/time seen: 06/30/23 13:52 Interval history: Kenneth is feeling better today. He had 2units of blood last night. He had dialysis yesterday. He denies any black or bloody stools. Review of Systems Cardiovascular: Cardiovascular: Reports no additional cardiovascular complaints Respiratory: Respiratory: Reports no additional respiratory complaints Gastrointestinal: Gastrointestinal: Reports no additional gastrointestinal complaints Genitourinary: Genitourinary: Reports no additional male genitourinary complaints Exam Narrative: WDWN in NAD skin no rash head ncat lungs clear cor reg no rub abd BS+ nontender and soft ext no edema. Objective Data Vital Signs Vital Signs: Vital Signs - 24 hr 06/29/23 14:15 06/29/23 14:38 06/29/23 15:22 Temperature Pulse Rate 67 67 69 Respiratory Rate 17 18 16 Blood Pressure 151/68 H 145/59 H 119/100 H Pulse Oximetry 96 94 92 Oxygen Delivery 06/29/23 15:31 06/29/23 15:46 06/29/23 15:46 Temperature 98.5 F 98.7 F 98.7 F Pulse Rate 74 69 69 Respiratory Rate 17 15 15 Blood Pressure 146/67 H 155/63 H 155/63 H Pulse Oximetry 98 93 93 Oxygen Delivery 06/29/23 16:46 06/29/23 16:46 06/29/23 17:11 Temperature 98.6 F 98.6 F 98.9 F Pulse Rate 70 70 69 Respiratory Rate 16 16 16 Blood Pressure 138/64 138/64 155/62 H Pulse Oximetry 95 95 96 Oxygen Delivery 06/29/23 14:46 06/29/23 15:01 06/29/23 15:46 Temperature Pulse Rate 66 68 70 Respiratory Rate 17 18 15 Blood Pressure 145/59 H 132/87 155/63 H Pulse Oximetry 94 98 92 Oxygen Delivery 06/29/23 16:01 06/29/23 16:16 06/29/23 16:46 Temperature Pulse Rate 71 72 71 Respiratory Rate 20 14 16 Blood Pressure 143/62 H 131/53 L 138/64 Pulse Oximetry 92 92 92 Oxygen Delivery 06/29/23 17:36 06/29/23 18:17 06/29/23 18:34 Temperature 98.1 F 98.7 F 98.4 F Pulse Rate 68 66 64 Respiratory Rate 18 14 14 Blood Pressure 154/57 H 162/59 H 160/62 H Pulse Oximetry 95 94 94 Oxygen Delivery 06/29/23 18:35 06/29/23 18:30 06/29/23 19:35 Temperature 98.4 F 97.9 F Pulse Rate 64 67 Respiratory Rate 14 18 Blood Pressure 160/62 H 155/56 H Pulse Oximetry 94 95 Oxygen Delivery Room Air
--- NOTE | 2023-06-30 13:52 | PM.IMPN ---
Progress Note: A&P Assessment and Plan (1) Acute on chronic anemia: Code(s): D64.9 - Anemia, unspecified Status: Acute Assessment and Plan: Patient has acute on chronic anemia. 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 Received 2 units packed RBCs on admission with improvement in hemoglobin to 7.8 today Recheck H&H this afternoon to ensure remaining stable Chronic anemia likely related to ESRD. Appreciate Nephrology recommendations. Will receive Epogen with hemodialysis There is no evidence of GI blood loss Iron saturation, B12 and folate in stable Will follow-up with Dr. Weir as an outpatient (2) ESRD on hemodialysis: Code(s): N18.6 - End stage renal disease; Z99.2 - Dependence on renal dialysis Status: Acute Assessment and Plan: Appreciate nephrology management Next dialysis is Sunday (3) Type 2 diabetes mellitus with hyperglycemia, with long-term current use of insulin: Code(s): E11.65 - Type 2 diabetes mellitus with hyperglycemia; Z79.4 - meterman (current) use of insulin Status: Acute Assessment and Plan: Blood sugars are reasonably controlled. Continue Accu-Cheks, sliding scale insulin, and hypoglycemic protocol Continue home Lantus 18 units daily and NovoLog 10 units scheduled with meals (4) Weakness: Code(s): R53.1 - Weakness Status: Acute Assessment and Plan: Generalized weakness, likely due to deconditioning, anemia, ESRD Appreciate PT/OT evaluation as patient reports concerns for falls Implement fall precautions Subjective Date/time seen: 06/30/23 13:52 Interval history: Date of service: 06/30/2023 Mr. Powers is feeling well today. He denies any bleeding. Denies dizziness, lightheadedness. No headache. Does endorse some mild nausea but no vomiting. Reports regular bowel movements. Denies urinary symptoms. He does complain of weakness and difficulty with ambulation. States his is concerned about his fall risk. Denies abdominal pain, shortness of breath, cough, chest pain, fever, or chills. Review of Systems Review of Systems: All systems reviewed & are unremarkable except as noted in HPI and below Exam Narrative: General: Well-nourished, well-appearing 77-year-old male, supine in bed, comfortable, NARD Neuro: awake, alert and oriented x4, speech clear, no focal neuro deficits noted HEENMT: normocephalic, atraumatic, EOMI, sclerae anicteric Respiratory: clear to auscultation bilaterally, nonlabored breathing Cardio: regular rate, regular rhythm with S1-S2 Abdomen: nondistended, normoactive bowel sounds, soft, nontender to palpation Extremities: no edema, erythema, or tenderness to palpation Skin: no rashes or lesions, warm and dry Psych: appropriate mood and affect, judgment and insight intact Objective Data Vital Signs Vital Signs: Vital Signs - 24 hr 06/29/23 14:15 06/29/23 14:38 06/29/23 15:22 Temperature Pulse Rate 67 67 69 Respiratory Rate 17 18 16 Blood Pressure 151/68 H 145/59 H 119/100 H Pulse Oximetry 96 94 92 Oxygen Delivery 06/29/23 15:31 06/29/23 15:46 06/29/23 15:46 Temperature 98.5 F 98.7 F 98.7 F Pulse Rate 74 69 69 Respiratory Rate 17 15 15 Blood Pressure 146/67 H 155/63 H 155/63 H Pulse Oximetry 98 93 93 Oxygen Delivery 06/29/23 16:46 06/29/23 16:46 06/29/23 17:11 Temperature 98.6 F 98.6 F 98.9 F Pulse Rate 70 70 69 Respiratory Rate 16 16 16 Blood Pressure 138/64 138/64 155/62 H Pulse Oximetry 95 95 96 Oxygen Delivery 06/29/23 14:46 06/29/23 15:01 06/29/23 15:46 Temperature Pulse Rate 66 68 70 Respiratory Rate 17 18 15 Blood Pressure 145/59 H 132/87 155/63 H Pulse Oximetry 94 98 92 Oxygen Delivery 06/29/23 16:01 06/29/23 16:16 06/29/23 16:46 Temperature Pulse Rate 71 72 71 Respiratory Rate 20 14 16 Blood Pressure 143/62 H 131/53 L 138/64 Pulse Oximetry 92 92 92 Oxygen Delivery 06/29/23
[2023-06-30 14:34] VITALS: BP 139/50; PULSE 64; RESP 18; TEMP 37.4; O2SAT 92
[2023-06-30 15:12] LABS: Hematocrit 22.4 % (42.0-52.0); Hemoglobin 7.2 g/dL (14.0-18.0)
[2023-06-30 16:58] LABS: Glucose Point of Care 67 mg/dl (65-105)
[2023-06-30 17:14] LABS: Glucose Point of Care 75 mg/dl (65-105)
[2023-06-30 20:16] LABS: Glucose Point of Care 128 mg/dl (65-105)
[2023-06-30] MEDS: rOPINIRole HCL 0.5 MG TABLET PO (20:47)
[2023-06-30 21:18] VITALS: BP 147/51; PULSE 66; RESP 20; TEMP 36.9; O2SAT 90
[2023-07-01 05:43] VITALS: BP 143/67; PULSE 68; RESP 20; TEMP 37.5; O2SAT 90
[2023-07-01 06:17] LABS: Hematocrit 23.2 % (42.0-52.0); Hemoglobin 7.4 g/dL (14.0-18.0); Mean Corpuscular HGB Conc 31.9 g/dl (32-36); Mean Corpuscular Hemoglobin 29.7 pg (26-34); Mean Corpuscular Volume 93.2 fl (80-100); Mean Platelet Volume 9.7 fl (7.4-10.4); Platelet Count Result 419 k/mm3 (150-375); Red Blood Count 2.49 M/mm3 (4.6-6.20); Red Cell Distribution Width 16.9 % (11.5-14.5)
[2023-07-01 06:27] LABS: Albumin Level 3.3 g/dL (3.5-5.1); Anion Gap 8 mmol/L (8-16); Blood Urea Nitrogen 41 mg/dL (9-20); Calcium 8.3 mg/dL (8.4-10.2); Carbon Dioxide 28 mmol/L (22-30); Chloride 101 mmol/L (98-107); Estimated CRCL calculation 18 ml/min; Estimated Glomerular Filt Rate 18; Glucose 103 mg/dL (65-110); Potassium 4.3 mmol/L (3.4-5.0); Sodium 137 mmol/L (137-145)
[2023-07-01 08:00] VITALS: PULSE 56; RESP 18; O2SAT 96
[2023-07-01 08:04] LABS: Glucose Point of Care 125 mg/dl (65-105)
[2023-07-01] MEDS: INSULIN ASPART (*BKC) 100 UNITS/ML 10 UNITS SUB-Q ×2 (09:00→11:57)
[2023-07-01 09:01] VITALS: PULSE 70
[2023-07-01] MEDS: hydroCHLOROthiazide 25 MG TABLET PO (09:01)
[2023-07-01] MEDS: GABAPENTIN 100 MG CAPSULE PO ×2 (09:01→16:35)
[2023-07-01] MEDS: ASPIRIN 81 MG CHEWABLE TABLET PO (09:01)
[2023-07-01] MEDS: hydrALAZINE HCL 25 MG TABLET PO (09:01)
[2023-07-01] MEDS: buPROPion HCL 75 MG TABLET PO ×2 (09:01→20:29)
[2023-07-01] MEDS: SERTRALINE HCL 25 MG TABLET PO (09:01)
[2023-07-01] MEDS: carvediloL 25 MG TABLET PO (09:01)
[2023-07-01] MEDS: INSULIN GLARGINE (*BKC) 100 UNITS/ML 18 UNITS SUB-Q (09:03)
[2023-07-01 11:42] LABS: Glucose Point of Care 147 mg/dl (65-105)
--- NOTE | 2023-07-01 11:48 | P.PNNP_ITS ---
Progress Note: A&P Assessment and Plan (1) End stage renal disease: Code(s): N18.6 - End stage renal disease Status: Chronic Assessment and Plan: * Hemodialysis tomorrow * Volume status looks okay. * Potassium is 4.3 and bicarbonate is 28. * Aleshia Cespedes is on a holiday schedule. we will dialyze the patient in the morning and he can go to dialysis on Sunday. (2) Anemia: Code(s): D64.9 - Anemia, unspecified Status: Chronic Assessment and Plan: * H/H quite low on admission * recent hospitalization about a month ago for same issue * related in part to ESRD; other factors involved? * PRBC transfusion x2 yesterday. * Epogen with HD * T sat okay * B12 and folate okay * No black or bloody stools * consult in for Hem/Onc (as no evidence of GI bleed/loss) * Hemoglobin stable today (3) Diastolic congestive heart failure: Qualifiers: Heart failure chronicity: acute on chronic Qualified Code(s): I50.33 - Acute on chronic diastolic (congestive) heart failure Code(s): I50.30 - Unspecified diastolic (congestive) heart failure Status: Acute Assessment and Plan: * compensated at this time * fluid removal with dialysis to maintain euvolemia (4) Hypertension: Qualifiers: Hypertension type: primary hypertension Qualified Code(s): I10 - Essential (primary) hypertension Code(s): I10 - Essential (primary) hypertension Status: Chronic Assessment and Plan: * Systolic 130-150 * On amlodipine, carvedilol, hydralazine. * Blood pressure doing pretty well. (5) Type 2 diabetes mellitus: Code(s): E11.9 - Type 2 diabetes mellitus without complications Status: Chronic Assessment and Plan: * follow accu-cheks * glycemic control per hospitalists Subjective Date/time seen: 07/01/23 11:48 Interval history: Kenneth is feeling better today. Eager for discharge to [facility]. Daughter is in the room. The 3 of us discussed the case. Exam Narrative: WDWN in NAD skin no rash head ncat lungs clear bilaterally cor reg no rub or gallop abd BS+ nontender and soft ext no edema. Objective Data Vital Signs Vital Signs: Vital Signs - 24 hr 06/30/23 14:34 06/30/23 15:31 06/30/23 21:18 Temperature 99.4 F 98.5 F Pulse Rate 64 66 Respiratory Rate 18 20 Blood Pressure 139/50 L 147/51 H Pulse Oximetry 92 90 Oxygen Delivery Room Air 07/01/23 05:43 07/01/23 09:01 Temperature 99.5 F Pulse Rate 68 70 Respiratory Rate 20 Blood Pressure 143/67 H Pulse Oximetry 90 Oxygen Delivery Intake/Output Intake/Output: Intake & Output 06/28/23 06/29/23 06/30/23 07/01/23 23:59 23:59 23:59 23:59 Intake Total 950 1120 290 Output Total 150 150 Balance 800 970 290 Meds/Results Medications: Active Medications Generic Name Dose Route Start Last Admin Trade Name Freq PRN Reason Stop Dose Admin Acetaminophen 650 mg 06/29/23 15:29 Acetaminophen 325 Mg Tablet PO Q4H PRN Mild Pain (1-3) or Fever Amlodipine Besylate 10 mg
--- NOTE | 2023-07-01 11:48 | PM.PNNEP ---
Progress Note: A&P Assessment and Plan (1) End stage renal disease: Code(s): N18.6 - End stage renal disease Status: Chronic Assessment and Plan: Hemodialysis tomorrow Volume status looks okay. Potassium is 4.3 and bicarbonate is 28. Aleshia Cespedes is on a holiday schedule. we will dialyze the patient in the morning and he can go to dialysis on Sunday. (2) Anemia: Code(s): D64.9 - Anemia, unspecified Status: Chronic Assessment and Plan: H/H quite low on admission recent hospitalization about a month ago for same issue related in part to ESRD; other factors involved? PRBC transfusion x2 yesterday. Epogen with HD T sat okay B12 and folate okay No black or bloody stools consult in for Hem/Onc (as no evidence of GI bleed/loss) Hemoglobin stable today (3) Diastolic congestive heart failure: Qualifiers: Heart failure chronicity: acute on chronic Qualified Code(s): I50.33 - Acute on chronic diastolic (congestive) heart failure Code(s): I50.30 - Unspecified diastolic (congestive) heart failure Status: Acute Assessment and Plan: compensated at this time fluid removal with dialysis to maintain euvolemia (4) Hypertension: Qualifiers: Hypertension type: primary hypertension Qualified Code(s): I10 - Essential (primary) hypertension Code(s): I10 - Essential (primary) hypertension Status: Chronic Assessment and Plan: Systolic 130-150 On amlodipine, carvedilol, hydralazine. Blood pressure doing pretty well. (5) Type 2 diabetes mellitus: Code(s): E11.9 - Type 2 diabetes mellitus without complications Status: Chronic Assessment and Plan: follow accu-cheks glycemic control per hospitalists Subjective Date/time seen: 07/01/23 11:48 Interval history: Kenneth is feeling better today. Eager for discharge to [facility]. Daughter is in the room. The 3 of us discussed the case. Exam Narrative: WDWN in NAD skin no rash head ncat lungs clear bilaterally cor reg no rub or gallop abd BS+ nontender and soft ext no edema. Objective Data Vital Signs Vital Signs: Vital Signs - 24 hr 06/30/23 14:34 06/30/23 15:31 06/30/23 21:18 Temperature 99.4 F 98.5 F Pulse Rate 64 66 Respiratory Rate 18 20 Blood Pressure 139/50 L 147/51 H Pulse Oximetry 92 90 Oxygen Delivery Room Air 07/01/23 05:43 07/01/23 09:01 Temperature 99.5 F Pulse Rate 68 70 Respiratory Rate 20 Blood Pressure 143/67 H Pulse Oximetry 90 Oxygen Delivery Intake/Output Intake/Output: Intake & Output 06/28/23 06/29/23 06/30/23 07/01/23 23:59 23:59 23:59 23:59 Intake Total 950 1120 290 Output Total 150 150 Balance 800 970 290 Meds/Results Medications: Active Medications Generic Name Dose Route Start Last Admin Trade Name Freq PRN Reason Stop Dose Admin Acetaminophen 650 mg 06/29/23 15:29 Acetaminophen 325 Mg Tablet PO Q4H PRN Mild Pain (1-3) or Fever Amlodipine Besylate 10 mg 06/30/23 09:00 06/30/23 08:49 Amlodipine Besylate 5 Mg Tablet PO 10 mg SuTuThSa@0900 LUX Administration Aspirin 81 mg 06/30/23 08:00 07/01/23 09:01 Aspirin 81 Mg Chewable Tablet PO 81 mg DAILY@0800 LUX Administration Bupropion HCl 75 mg 06/29/23 21:00 07/01/23 09:01 Bupropion Hcl 75 Mg Tablet PO 75 mg Q12HR LUX Administration Calcium Carbonate 500 mg 06/30/23 09:00 07/01/23 09:01 Calcium/Vitamin D 500 Mg Tablet PO 500 mg QAM LUX Administration Carvedilol 25 mg 06/30/23 09:00 07/01/23 09:01 Carvedilol 25 Mg Tablet PO 25 mg DAILY LUX Administration Dextrose 12.5 gm 06/29/23 18:57 Dextrose 50% 25 Gm/50 Ml Syringe IV PUSH PRN PRN Hypoglycemia Protocol Gabapentin 100 mg 06/29/23 19:15 07/01/23 09:01 Gabapentin 100 Mg Capsule PO 100 mg BID LUX Administration Glucagon
[2023-07-01] MEDS: amLODIPine BESYLATE 5 MG TABLET 10 MG PO (11:57)
[2023-07-01 13:46] VITALS: BP 108/42; PULSE 56; RESP 18; TEMP 36.7; O2SAT 96
[2023-07-01 16:47] LABS: Glucose Point of Care 88 mg/dl (65-105)
[2023-07-01 20:28] LABS: Glucose Point of Care 167 mg/dl (65-105)
[2023-07-01] MEDS: rOPINIRole HCL 0.5 MG TABLET PO (20:29)
[2023-07-01 20:59] VITALS: BP 134/54; PULSE 69; RESP 20; TEMP 37.4; O2SAT 90
[2023-07-02] VITALS (19 sets, daily range): BP systolic 121–156; BP diastolic 51–68; PULSE 50–67; RESP 16–21; TEMP 36.2–37; O2SAT 90–95
[2023-07-02 06:05] LABS: Potassium 4.2 mmol/L (3.4-5.0)
[2023-07-02 06:10] LABS: Albumin Level 3.4 g/dL (3.5-5.1); Anion Gap 12 mmol/L (8-16); Blood Urea Nitrogen 54 mg/dL (9-20); Calcium 8.4 mg/dL (8.4-10.2); Carbon Dioxide 25 mmol/L (22-30); Chloride 100 mmol/L (98-107); Estimated CRCL calculation 17 ml/min; Estimated Glomerular Filt Rate 18; Glucose 115 mg/dL (65-110); Phosphorus 4.9 mg/dL (2.5-4.5); Sodium 137 mmol/L (137-145)
--- NOTE | 2023-07-02 07:52 | PM.IMPN ---
Progress Note: A&P Assessment and Plan (1) Acute on chronic anemia: Code(s): D64.9 - Anemia, unspecified Status: Acute Assessment and Plan: Patient has acute on chronic anemia. 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 Received 2 units packed RBCs on admission with improvement in hemoglobin to 7.8 today Recheck H&H this afternoon to ensure remaining stable Chronic anemia likely related to ESRD. Appreciate Nephrology recommendations. Will receive Epogen with hemodialysis There is no evidence of GI blood loss Iron saturation, B12 and folate in stable Will follow-up with Dr. Weir as an outpatient 07/02:Stable. Hgb has been 7.7/Hct 23.8 (2) ESRD on hemodialysis: Code(s): N18.6 - End stage renal disease; Z99.2 - Dependence on renal dialysis Status: Acute Assessment and Plan: Appreciate nephrology management Next dialysis is Monday 07/02: HD today (3) Type 2 diabetes mellitus with hyperglycemia, with long-term current use of insulin: Code(s): E11.65 - Type 2 diabetes mellitus with hyperglycemia; Z79.4 - [facility] (current) use of insulin Status: Acute Assessment and Plan: Blood sugars are reasonably controlled. Continue Accu-Cheks, sliding scale insulin, and hypoglycemic protocol Continue home Lantus 18 units daily and NovoLog 10 units scheduled with meals 07/02: blood glucose stable and within desired limits. (4) Weakness: Code(s): R53.1 - Weakness Status: Acute Assessment and Plan: Generalized weakness, likely due to deconditioning, anemia, ESRD Appreciate PT/OT evaluation as patient reports concerns for falls Implement fall precautions Plan Dialysis today and then d/c back to his facility. He will need outpatient follow up with [facility] for anemia workup. Subjective Date/time seen: 07/02/23 07:52 Interval history: 77-year-old male with a past medical history of essential hypertension, insulin-dependent diabetes mellitus, diastolic heart failure, chronic kidney disease stage 5, chronic anemia and lung other comorbidities who presented to the ER from [facility] due to low hemoglobin.? The patient's hemoglobin today was 5.4.? He reports that he was otherwise asymptomatic and had no complaints.? He received 2 units of packed red blood cells with her repeat hemoglobin of 7.3.The patient has heart failure with preserved ejection fraction.? Patient currently appears intravascularly volume depleted.? Will continue gentle IV fluid hydration as discussed above.? Will have a low threshold to discontinue IV fluids.? The patient has had multiple hospitalizations for recurrent anemia.? Patient has been treated with deep which in a.? His guaiac stools have been negative in the past.? He was told it was thought his anemia could be due to myeloproliferative process.? He reports that he still makes urine 2 to 3 times a day.? He occasionally has some dysuria but none recently.? Denies any fevers or chills.? Denies any respiratory symptoms. 06/30: Mr. Powers is feeling well today.? He denies any bleeding.? Denies dizziness, lightheadedness.? No headache.? Does endorse some mild nausea but no vomiting.? Reports regular bowel movements.? Denies urinary symptoms.? He does complain of weakness and difficulty with ambulation.? States his is concerned about his fall risk.? Denies abdominal pain, shortness of breath, cough, chest pain, fever, or chills. 07/01: See nephrology note 07/02: Patient is doing well today. He is sitting up in the chair and looks well. He denies any complaints other than the callous on his right foot which is intact and chronic. He usually sees a road traffic controller but it has been a few months since he saw him last. He's hemoglobin has been stable. After HD today he can d/c back to his facility. Review of Systems Review of Systems: 12 systems were reviewed with pertinent positives and negatives per HPI. Except
[2023-07-02 08:05] LABS: Glucose Point of Care 111 mg/dl (65-105)
[2023-07-02 08:41] LABS: Hematocrit 23.8 % (42.0-52.0); Hemoglobin 7.5 g/dL (14.0-18.0); Mean Corpuscular HGB Conc 31.5 g/dl (32-36); Mean Corpuscular Hemoglobin 29.6 pg (26-34); Mean Corpuscular Volume 94.1 fl (80-100); Mean Platelet Volume 10.2 fl (7.4-10.4); Platelet Count Result 462 k/mm3 (150-375); Red Blood Count 2.53 M/mm3 (4.6-6.20); Red Cell Distribution Width 16.8 % (11.5-14.5); White Blood Count 9.7 K/mm3 (4.5-10.0)
[2023-07-02] MEDS: buPROPion HCL 75 MG TABLET PO ×2 (09:07→20:24)
[2023-07-02] MEDS: ASPIRIN 81 MG CHEWABLE TABLET PO (09:07)
[2023-07-02] MEDS: SERTRALINE HCL 25 MG TABLET PO (09:07)
[2023-07-02] MEDS: hydrALAZINE HCL 25 MG TABLET PO (09:08)
[2023-07-02] MEDS: carvediloL 25 MG TABLET PO (09:08)
[2023-07-02] MEDS: PANTOPRAZOLE 40 MG TABLET PO (09:08)
[2023-07-02] MEDS: hydroCHLOROthiazide 25 MG TABLET PO (09:09)
[2023-07-02] MEDS: GABAPENTIN 100 MG CAPSULE PO ×2 (09:09→18:06)
[2023-07-02] MEDS: INSULIN ASPART (*BKC) 100 UNITS/ML 10 UNITS SUB-Q ×3 (09:10→18:07)
[2023-07-02] MEDS: INSULIN GLARGINE (*BKC) 100 UNITS/ML 18 UNITS SUB-Q (09:12)
[2023-07-02 12:26] LABS: Glucose Point of Care 161 mg/dl (65-105)
[2023-07-02] MEDS: EPOETIN ALFA-EPBX 10,000 UNITS/ML VIAL 10000 UNITS IV PUSH (14:11)
[2023-07-02] MEDS: SODIUM CHLORIDE 0.9% IV 1,000 ML 999 ML IV CONT (14:11)
--- NOTE | 2023-07-02 14:30 | P.PNNP_ITS ---
Progress Note: A&P Assessment and Plan (1) End stage renal disease: Code(s): N18.6 - End stage renal disease Status: Chronic Assessment and Plan: * HD today * follow electrolytes, volume status, and clearance * in transition to new dialysis clinic [facility] (with next scheduled treatment on Sunday) (2) Anemia: Code(s): D64.9 - Anemia, unspecified Status: Chronic Assessment and Plan: * H/H quite low on admission * recent hospitalization about a month ago for same issue * related in part to ESRD; other factors involved? * s/p PRBC transfusion * Epogen with HD * T sat okay; B12 and folate okay * consult in for Hem/Onc (as no evidence of GI bleed/loss) * follow trend of H/H (3) Diastolic congestive heart failure: Qualifiers: Heart failure chronicity: acute on chronic Qualified Code(s): I50.33 - Acute on chronic diastolic (congestive) heart failure Code(s): I50.30 - Unspecified diastolic (congestive) heart failure Status: Acute Assessment and Plan: * compensated at this time * fluid removal with dialysis to maintain euvolemia (4) Hypertension: Qualifiers: Hypertension type: primary hypertension Qualified Code(s): I10 - Essential (primary) hypertension Code(s): I10 - Essential (primary) hypertension Status: Chronic Assessment and Plan: * reasonable control * on amlodipine, carvedilol, hydralazine * blood pressure doing pretty well (5) Type 2 diabetes mellitus: Code(s): E11.9 - Type 2 diabetes mellitus without complications Status: Chronic Assessment and Plan: * follow accu-cheks * glycemic control per hospitalists Will continue to follow. Subjective Date/time seen: 07/02/23 14:30 Interval history: Follow-up for end-stage renal disease on hemodialysis. Tolerating hemodialysis treatment at the time of my visit (seen on HD at 2:20PM); no reported issues or problems overnight or earlier this morning; no apparent distress voiced currently; H/H appears stable. Exam Narrative: General: elderly but WD/WN male in NAD Heart: normal S1 and S2; no rub Lungs: clear anteriorly, decreased at bases Abdomen: soft, nontender, nondistended, positive bowel sounds Extremities: no cyanosis or clubbing, trace edema Skin: warm and dry Objective Data Vital Signs Vital Signs: Vital Signs Temp Pulse Resp BP Pulse Ox O2 Del Method 07/02/23 14:20 53 L 124/58 L 07/02/23 14:00 53 L 121/57 L 07/02/23 13:40 52 L 132/55 L 07/02/23 13:22 50 L 130/64 07/02/23 13:10 97.4 F L 54 L 16 140/66 07/02/23 12:34 95 Room Air 07/02/23 09:10 Room Air 07/02/23 09:08 65 07/02/23 09:06 65 140/52 L 92 Intake/Output Intake/Output: Intake & Output 06/30/23 07/01/23 07/02/23 07/03/23 23:59 23:59 23:59 23:59 Intake Total 1120 770 820 Output Total 150 2550 250 Balance 970 770 -1730 -250 Meds/Results Medications: Active Medications Generic Name Dose Route Start Last Admin Trade Name Mark PRN Reason Stop Dose Admin Acetaminophen 650 mg 06/29/23 15:29
--- NOTE | 2023-07-02 14:30 | PM.PNNEP ---
Progress Note: A&P Assessment and Plan (1) End stage renal disease: Code(s): N18.6 - End stage renal disease Status: Chronic Assessment and Plan: HD today follow electrolytes, volume status, and clearance in transition to new dialysis clinic [facility] (with next scheduled treatment on Sunday) (2) Anemia: Code(s): D64.9 - Anemia, unspecified Status: Chronic Assessment and Plan: H/H quite low on admission recent hospitalization about a month ago for same issue related in part to ESRD; other factors involved? s/p PRBC transfusion Epogen with HD T sat okay; B12 and folate okay consult in for Hem/Onc (as no evidence of GI bleed/loss) follow trend of H/H (3) Diastolic congestive heart failure: Qualifiers: Heart failure chronicity: acute on chronic Qualified Code(s): I50.33 - Acute on chronic diastolic (congestive) heart failure Code(s): I50.30 - Unspecified diastolic (congestive) heart failure Status: Acute Assessment and Plan: compensated at this time fluid removal with dialysis to maintain euvolemia (4) Hypertension: Qualifiers: Hypertension type: primary hypertension Qualified Code(s): I10 - Essential (primary) hypertension Code(s): I10 - Essential (primary) hypertension Status: Chronic Assessment and Plan: reasonable control on amlodipine, carvedilol, hydralazine blood pressure doing pretty well (5) Type 2 diabetes mellitus: Code(s): E11.9 - Type 2 diabetes mellitus without complications Status: Chronic Assessment and Plan: follow accu-cheks glycemic control per hospitalists Will continue to follow. Subjective Date/time seen: 07/02/23 14:30 Interval history: Follow-up for end-stage renal disease on hemodialysis. Tolerating hemodialysis treatment at the time of my visit (seen on HD at 2:20PM); no reported issues or problems overnight or earlier this morning; no apparent distress voiced currently; H/H appears stable. Exam Narrative: General: elderly but WD/WN male in NAD Heart: normal S1 and S2; no rub Lungs: clear anteriorly, decreased at bases Abdomen: soft, nontender, nondistended, positive bowel sounds Extremities: no cyanosis or clubbing, trace edema Skin: warm and dry Objective Data Vital Signs Vital Signs: Vital Signs Temp Pulse Resp BP Pulse Ox O2 Del Method 07/02/23 14:20 53 L 124/58 L 07/02/23 14:00 53 L 121/57 L 07/02/23 13:40 52 L 132/55 L 07/02/23 13:22 50 L 130/64 07/02/23 13:10 97.4 F L 54 L 16 140/66 07/02/23 12:34 95 Room Air 07/02/23 09:10 Room Air 07/02/23 09:08 65 07/02/23 09:06 65 140/52 L 92 Intake/Output Intake/Output: Intake & Output 06/30/23 07/01/23 07/02/23 07/03/23 23:59 23:59 23:59 23:59 Intake Total 1120 770 820 Output Total 150 2550 250 Balance 970 770 -1730 -250 Meds/Results Medications: Active Medications Generic Name Dose Route Start Last Admin Trade Name Freq PRN Reason Stop Dose Admin Acetaminophen 650 mg 06/29/23 15:29 Acetaminophen 325 Mg Tablet PO Q4H PRN Mild Pain (1-3) or Fever Amlodipine Besylate 10 mg 06/30/23 09:00 07/01/23 11:57 Amlodipine Besylate 5 Mg Tablet PO 10 mg SuTuThSa@0900 LUX Administration Aspirin 81 mg 06/30/23 08:00 07/02/23 09:07 Aspirin 81 Mg Chewable Tablet PO 81 mg DAILY@0800 LUX Administration Bupropion HCl 75 mg 06/29/23 21:00 07/02/23 20:24 Bupropion Hcl 75 Mg Tablet PO 75 mg Q12HR LUX Administration Calcium Carbonate 500 mg 06/30/23 09:00 07/02/23 09:08 Calcium/Vitamin D 500 Mg Tablet PO 500 mg QAM LUX Administration Carvedilol 25 mg 06/30/23 09:00 07/02/23 09:08 Carvedilol 25 Mg Tablet PO 25 mg DAILY LUX Administration Dextrose 12.5 gm 06/29/23 18:57 Dextrose 50% 25 Gm/50 Ml Syringe
--- NOTE | 2023-07-02 14:52 | PM.DS ---
DS: Admitting Diagnosis Discharge Date 07/03 Admitting Diagnosis anemia DS: Discharge Diagnosis Discharge Diagnosis (1) Acute on chronic anemia: Code(s): D64.9 - Anemia, unspecified Status: Acute Assessment and Plan: Patient has acute on chronic anemia. 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 Received 2 units packed RBCs on admission with improvement in hemoglobin to 7.8 today Recheck H&H this afternoon to ensure remaining stable Chronic anemia likely related to ESRD. Appreciate Nephrology recommendations. Will receive Epogen with hemodialysis There is no evidence of GI blood loss Iron saturation, B12 and folate in stable Will follow-up with Dr. Weir as an outpatient 07/02:Stable. 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 Continue Accu-Cheks, sliding scale insulin, and hypoglycemic protocol Continue home Lantus 18 units daily and NovoLog 10 units scheduled with meals 07/02: blood glucose stable and within desired limits. (4) Weakness: Code(s): R53.1 - Weakness Status: Acute Assessment and Plan: Generalized weakness, likely due to deconditioning, anemia, ESRD Appreciate PT/OT evaluation as patient reports concerns for falls Implement fall precautions Plan Dialysis today and then d/c back to his facility. He will need outpatient follow up with Carmella for anemia workup. DS: Summary Hospital Course Hospital Course: 77-year-old male with a past medical history of essential hypertension, insulin-dependent diabetes mellitus, diastolic heart failure, chronic kidney disease stage 5, chronic anemia and lung other comorbidities who presented to the ER from [facility] due to low hemoglobin.? The patient's hemoglobin today was 5.4.? He reports that he was otherwise asymptomatic and had no complaints.? He received 2 units of packed red blood cells with her repeat hemoglobin of 7.3.The patient has heart failure with preserved ejection fraction.? Patient currently appears intravascularly volume depleted.? Will continue gentle IV fluid hydration as discussed above.? Will have a low threshold to discontinue IV fluids.? The patient has had multiple hospitalizations for recurrent anemia.? Patient has been treated with deep which in a.? His guaiac stools have been negative in the past.? He was told it was thought his anemia could be due to myeloproliferative process.? He reports that he still makes urine 2 to 3 times a day.? He occasionally has some dysuria but none recently.? Denies any fevers or chills.? Denies any respiratory symptoms. 06/30: Mr. Powers is feeling well today.? He denies any bleeding.? Denies dizziness, lightheadedness.? No headache.? Does endorse some mild nausea but no vomiting.? Reports regular bowel movements.? Denies urinary symptoms.? He does complain of weakness and difficulty with ambulation.? States his is concerned about his fall risk.? Denies abdominal pain, shortness of breath, cough, chest pain, fever, or chills. 07/01: See nephrology note 07/02: Patient is doing well today. He is sitting up in the chair and looks well. He denies any complaints other than the callous on his right foot which is intact and chronic. He usually sees a drop count associate but it has been a few months since he saw him last. He's hemoglobin has been stable. After HD today he can d/c back to his facility. Status at Discharge Cognitive/behavioral status at discharge:
--- NOTE | 2023-07-02 15:30 | PDONCCN ---
HPI - Date of Consult Date/Time: 07/02/23 18:17 <Carmella,Brenton Garrett - 07/02/23 18:19> 07/02/23 15:30 <Najma Knapp - 07/02/23 15:34> Requesting Physician: Sabrina Birch PA-C <Brenton Weir - 07/02/23 18:19> Sabrina Birch PA-C <Najma Knapp - 07/02/23 15:34> Primary Care Provider: Domingo Gambino, <Brenton Weir - 07/02/23 18:19> Domingo Gambino, <Najma Knapp - 07/02/23 15:34> - Consult Narrative Reason for consult: Anemia <Najma Knapp - 07/02/23 15:34> Narrative: Kenneth Powers is a 77 year old male <Carmella,Brenton Garrett - 07/02/23 18:19> Kenneth Powers is a 77 year old male with a past medical history of chronic anemia, COPD, depression, HTN, CKD stage 5, and TELMA. He was admitted for low hemoglobin from [facility]. His hemoglobin upon admission was 5.4. He received 2 units of PRBCS and his repeat hgb was 7.3. He has had a lot of readmissions due to chronic anemia. He denies any blood in his stool or urine. Unsure of last colonoscopy. Eats a regular diet. Denies blood donations in the past. He makes very little urine during the day. Denies dizziness, lightheadedness.? No headache. Reports regular bowel movements.? Denies urinary symptoms.? Denies abdominal pain, shortness of breath, cough, chest pain, fever, or chills. He will receive dialysis today and then be discharged <Najma Knapp - 07/02/23 15:34> Review of Systems - Review of Systems All systems reviewed & are unremarkable except as noted in HPI and bel <Najma Knapp - 07/02/23 15:34> [facility] Medical History: Medical History (Last Updated 06/30/23 @ 02:15 by Mis Santamaria DO) Arthritis Chronic anemia Chronic obstructive pulmonary disease Depression Diabetic peripheral neuropathy Diastolic congestive heart failure Hypertension Insulin dependent diabetes mellitus Obstructive sleep apnea <Brenton Weir - 07/02/23 18:19> Medical History (Last Updated 06/30/23 @ 02:15 by Mis Santamaria DO) Arthritis Chronic anemia Chronic obstructive pulmonary disease Depression Diabetic peripheral neuropathy Diastolic congestive heart failure Hypertension Insulin dependent diabetes mellitus Obstructive sleep apnea <Najma Knapp - 07/02/23 15:34> Surgical History: Surgical History (Last Updated 06/30/23 @ 02:17 by Mis Santamaria DO) History of cholecystectomy History of foot surgery History of penile implant Status post cataract extraction of both eyes with insertion of intraocular lens Vascular dialysis catheter in place <Brenton Weir - 07/02/23 18:19> Surgical History (Last Updated 06/30/23 @ 02:17 by Mis Santamaria DO) History of cholecystectomy History of foot surgery History of penile implant Status post cataract extraction of both eyes with insertion of intraocular lens Vascular dialysis catheter in place <Najma Knapp - 07/02/23 15:34> Family History: Family History (Last Reviewed 06/30/23 @ 02:13 by Mis Santamaria DO) Father Cancer Diabetes mellitus Mother Hyperlipidemia Hypertension Heart attack Sibling Hx of CABG Colon cancer <Brenton Weir - 07/02/23 18:19> Family History (Last Reviewed 06/30/23 @ 02:13 by Mis Santamaria DO) Father Cancer Diabetes mellitus Mother Hyperlipidemia Hypertension Heart attack Sibling Hx of CABG Colon cancer <Najma Knapp - 07/02/23 15:34> - Social History Social History: Social History (Last Reviewed 06/30/23 @ 02:15 by Mis Santamaria DO) Alcohol Use: Alcohol intake: former Drinks per week: 1 Alcohol use details: Occasional glass a wine though rare. Substance Use: Substance use: never Substance use type: does not use Others: Spiritual care concerns: No Living Arrangements: Living arrangements: with family
[2023-07-02 17:40] LABS: Glucose Point of Care 91 mg/dl (65-105)
[2023-07-02] MEDS: rOPINIRole HCL 0.5 MG TABLET PO (20:24)
[2023-07-02 20:52] LABS: Glucose Point of Care 71 mg/dl (65-105)
[2023-07-03 06:00] VITALS: BP 148/46; PULSE 67; RESP 18; TEMP 36.9; O2SAT 91
[2023-07-03 08:42] LABS: Glucose Point of Care 98 mg/dl (65-105)
[2023-07-03 08:51] VITALS: BP 163/61; PULSE 72; O2SAT 91
[2023-07-03] MEDS: hydroCHLOROthiazide 25 MG TABLET PO (08:53)
[2023-07-03] MEDS: FERROUS SULFATE DRIED 142 MG TABCR PO (08:53)
[2023-07-03] MEDS: hydrALAZINE HCL 25 MG TABLET PO (08:53)
[2023-07-03] MEDS: SERTRALINE HCL 25 MG TABLET PO (08:53)
[2023-07-03] MEDS: buPROPion HCL 75 MG TABLET PO (08:53)
[2023-07-03] MEDS: amLODIPine BESYLATE 5 MG TABLET 10 MG PO (08:53)
[2023-07-03] MEDS: GABAPENTIN 100 MG CAPSULE PO (08:53)
[2023-07-03] MEDS: ASPIRIN 81 MG CHEWABLE TABLET PO (08:53)
[2023-07-03 08:54] VITALS: PULSE 72
[2023-07-03] MEDS: carvediloL 25 MG TABLET PO (08:54)
[2023-07-03] MEDS: INSULIN GLARGINE (*BKC) 100 UNITS/ML 18 UNITS SUB-Q (08:55)
[2023-07-03] MEDS: INSULIN ASPART (*BKC) 100 UNITS/ML 10 UNITS SUB-Q (08:55)
--- NOTE | 2023-07-03 09:05 | PM.PNNEP ---
Progress Note: A&P Assessment and Plan (1) End stage renal disease: Code(s): N18.6 - End stage renal disease Status: Chronic Assessment and Plan: HD tomorrow follow electrolytes, volume status, and clearance in transition to new dialysis [facility] (with next scheduled treatment on Sunday) (2) Anemia: Code(s): D64.9 - Anemia, unspecified Status: Chronic Assessment and Plan: H/H quite low on admission recent hospitalization about a month ago for same issue related in part to ESRD; other factors involved? s/p PRBC transfusion Epogen with HD T sat okay; B12 and folate okay Hem/Onc recommendations noted follow trend of H/H (3) Diastolic congestive heart failure: Qualifiers: Heart failure chronicity: acute on chronic Qualified Code(s): I50.33 - Acute on chronic diastolic (congestive) heart failure Code(s): I50.30 - Unspecified diastolic (congestive) heart failure Status: Acute Assessment and Plan: compensated at this time fluid removal with dialysis to maintain euvolemia (4) Hypertension: Qualifiers: Hypertension type: primary hypertension Qualified Code(s): I10 - Essential (primary) hypertension Code(s): I10 - Essential (primary) hypertension Status: Chronic Assessment and Plan: reasonable control on amlodipine, carvedilol, hydralazine blood pressure doing pretty well (5) Type 2 diabetes mellitus: Code(s): E11.9 - Type 2 diabetes mellitus without complications Status: Chronic Assessment and Plan: follow accu-cheks glycemic control per hospitalists Will continue to follow. Subjective Date/time seen: 07/03/23 09:05 Interval history: Follow-up for end-stage renal disease on hemodialysis. Tolerated hemodialysis treatment yesterday without any issues or problems; H/H remains relatively stable; seen by Hem/Onc yesterday afternoon; no apparent distress voiced on my visit; happy about discharge today. Exam Narrative: General: elderly but WD/WN male in NAD Heart: normal S1 and S2; no rub Lungs: clear anteriorly, decreased at bases Abdomen: soft, nontender, nondistended, positive bowel sounds Extremities: no cyanosis or clubbing, trace edema Skin: warm and intact Objective Data Vital Signs Vital Signs: Vital Signs Temp Pulse Resp BP Pulse Ox O2 Del Method 07/03/23 08:55 Room Air 07/03/23 08:54 72 07/03/23 08:51 72 163/61 H 91 07/03/23 06:00 98.4 F 67 18 148/46 H 91 07/02/23 19:39 98.2 F 60 18 140/51 L 94 07/02/23 17:10 97.2 F L 54 L 16 156/62 H 07/02/23 17:02 53 L 139/68 07/02/23 16:40 53 L 149/61 H 07/02/23 16:20 55 L 140/54 L 07/02/23 16:00 53 L 141/60 H 07/02/23 15:40 55 L 145/58 H 07/02/23 15:20 57 L 148/65 H 07/02/23 15:00 52 L 132/57 L 07/02/23 14:40 54 L 131/57 L 07/02/23 14:20 53 L 124/58 L 07/02/23 14:00 53 L 121/57 L 07/02/23 13:40 52 L 132/55 L 07/02/23 13:22 50 L 130/64 07/02/23 13:10 97.4 F L 54 L 16 140/66 07/02/23 12:34 95 Room Air Intake/Output Intake/Output: Intake & Output 06/30/23 07/01/23 07/02/23 07/03/23 23:59 23:59 23:59 23:59 Intake Total 1120 770 820 240 Output Total 150 2550 450 Balance 970 770 -1730 -210 Meds/Results Medications: Active Medications Generic Name Dose Route Start Last Admin Trade Name Freq PRN Reason Stop Dose Admin Acetaminophen 650 mg 06/29/23 15:29 Acetaminophen 325 Mg Tablet PO Q4H PRN Mild Pain (1-3) or Fever Amlodipine Besylate 10 mg 06/30/23 09:00 07/03/23 08:53 Amlodipine Besylate 5 Mg Tablet PO 10 mg SuTuThSa@0900 [facility] Administration Aspirin 81 mg 06/30/23 08:00 07/03/23 08:53 Aspirin 81 Mg Chewable Tablet PO 81 mg DAILY@0800 [facility] Administration Bupropion HCl 75 mg 11
[2023-07-03 11:59] LABS: Glucose Point of Care 54 mg/dl (65-105)
[2023-07-03 12:20] LABS: Glucose Point of Care 79 mg/dl (65-105)
[2023-07-07 18:41] LABS: Soluble Transferrin Receptor 0.51 mg/L (0.76-1.76)
== END 2023-07-03 12:35 | DRG 291 ==
LOC: ANHED 16:02 → ANH2MED 16:51
PROVIDERS: Internal Medicine; Internal Medicine Hematology & Oncology; Internal Medicine Nephrology; Physician Assistant; Admitting Provider Internal Medicine; Emergency Provider Emergency Medicine; PCP Hospitalist; Visit Provider Nurse Practitioner Acute Care
DX: I13.2 Hypertensive heart and chronic kidney disease with heart failure and with stage 5 chronic kidney disease, or end stage renal disease (principal); N18.6 End stage renal disease; C94.6 Myelodysplastic disease, not elsewhere classified; D63.1 Anemia in chronic kidney disease; D63.8 Anemia in other chronic diseases classified elsewhere; E11.22 Type 2 diabetes mellitus with diabetic chronic kidney disease; I50.32 Chronic diastolic (congestive) heart failure; J44.9 Chronic obstructive pulmonary disease, unspecified; E11.42 Type 2 diabetes mellitus with diabetic polyneuropathy; G47.33 Obstructive sleep apnea (adult) (pediatric); F32.A Depression, unspecified; M19.90 Unspecified osteoarthritis, unspecified site; E11.65 Type 2 diabetes mellitus with hyperglycemia; Z99.2 Dependence on renal dialysis; Z90.49 Acquired absence of other specified parts of digestive tract; Z87.891 Personal history of nicotine dependence; Z98.42 Cataract extraction status, left eye; Z98.41 Cataract extraction status, right eye; Z96.1 Presence of intraocular lens; Z79.82 Long term (current) use of aspirin; Z79.4 Long term (current) use of insulin
CPT/HCPCS: 36415; 36430; 71045; 80053; 80069; 82607; 82668; 82728; 82746; 82948; 83540; 83550; 83735; 84238; 85014; 85018; 85025; 85027; 85046; 86706; 86850; 86900; 86901; 86923; 87340; 96361; 96374; 97161; 97165; 97530; 97535; 99285; A9270; C9113; G0257; G0378; J1644; J1815; J7030; J7050; P9016; Q5105

== ENCOUNTER 2023-08-10 15:48 | Emergency (ER) | payer MEDICARE, SELFPAY ==
[2023-08-10] VITALS (16 sets, daily range): BP systolic 158–174; BP diastolic 61–99; PULSE 68–77; RESP 16–21; TEMP 36.6–37.1; O2SAT 92–97
--- NOTE | 2023-08-10 15:54 | ED.RECABL ---
HPI - Recheck/Abnormal Lab/Rx General Chief Complaint: Recheck/Abnormal Lab/Rx Stated Complaint: low hgb Time Seen by Provider: 08/10/23 15:53 History of Present Illness HPI narrative: Patient is a 77-year-old male here with abnormal hemoglobin from dialysis. He states that he was at dialysis today, got his full run where they performed it blood test and noted that his hemoglobin was 5.9. He notes that he has been on dialysis for several months. He has had to get 4 or 5 blood transfusions in the past for low hemoglobins. He denies any dark stools, bright red blood per rectum, hematuria, vomiting any blood, no sources of bleeding that he is aware of. He denies any chest pain, shortness of breath, lightheadedness. Related Data Home Medications Medication Instructions Recorded Confirmed gabapentin 100 mg capsule 100 mg PO BID 11/27/22 06/29/23 pantoprazole 40 mg tablet,delayed 40 mg PO .THREE TIMES WEEKLY 01/13/23 06/29/23 release amlodipine 10 mg tablet 10 mg PO .SUN/TUE/IVY/SAT 02/18/23 06/29/23 insulin glargine 100 unit/mL (3 18 unit subcut DAILY 03/23/23 06/29/23 mL) subcutaneous pen (Lantus Solostar U-100 Insulin) calcium carbonate 500 mg-vitamin 1 ea PO DAILY 06/03/23 06/29/23 D3 5 mcg (200 unit) oral powder pack (Oyster Shell Calcium) carvedilol 25 mg tablet 25 mg PO DAILY 06/03/23 06/29/23 cyanocobalamin (vitamin B-12) 1,000 mcg .Q3WKS 06/03/23 06/29/23 1,000 mcg/mL injection syringe hydralazine 25 mg tablet 25 mg PO DAILY 06/03/23 06/29/23 insulin lispro 100 unit/mL 10 unit subcut TIDWM 06/03/23 06/29/23 subcutaneous solution (Humalog U-100 Insulin) Allergies Allergy/AdvReac Type Severity Reaction Status Date / Time LAUREN Inhibitors Allergy Cough Verified 08/10/23 16:01 enalapril Allergy Cough Verified 08/10/23 16:01 lisinopril Allergy Cough Verified 08/10/23 16:01 quinapril Allergy Cough Verified 08/10/23 16:01 Review of Systems Review of Systems: All systems reviewed & are unremarkable except as noted in HPI and below PMFSH Past Medical History Medical History (Updated 08/10/23 @ 19:57 by Laura Soriano MD) Arthritis Chronic anemia Chronic obstructive pulmonary disease Depression Diabetic peripheral neuropathy Diastolic congestive heart failure Hypertension Insulin dependent diabetes mellitus Obstructive sleep apnea Surgical History Surgical History (Updated 07/02/23 @ 15:35 by Najma Knapp APRN) History of cholecystectomy History of foot surgery History of penile implant Status post cataract extraction of both eyes with insertion of intraocular lens Vascular dialysis catheter in place Family History Family History Father Cancer Diabetes mellitus Mother Hyperlipidemia Hypertension Heart attack Sibling Hx of CABG Colon cancer Social History Social History Social History: Surrogate medical decision maker: Palmira Worthington, granddaughter. Code status: Full code. Smoking packs per day: 1 Smoking cigarettes per day: 20.0 Years smoked: 2 Smoking pack-years: 2.00 Smoking status: Former smoker Second hand tobacco smoke exposure: Yes Alcohol intake: former Drinks per week: 1 Alcohol use details: Occasional glass a wine though rare. Substance use: never Substance use type: does not use Lack of Transportation: No Lack of Food: Never True Current Housing: I Have Housing Concerned About Future Housing: No Difficulty Paying Gas/Electric Bills: No Difficulty Paying for Meds: No Currently Unemployed: No Education: High School Diploma/GED Difficulty w/ Childcare or Family Care: No Living arrangements: with family Occupation/Education: retired Additional occupation/education comments: Retired from [employer]. Spiritual care concerns: No Exam Narrative: GENERAL: Well-appearing, well-nourished, and
[2023-08-10 16:18] LABS: Basophils Absolute Auto 0.1 K/mm3 (0.0-0.1); Basophils Percent Auto 1.2 % (0.2-1.2); Eosinophils Absolute Auto 1.1 K/mm3 (0-0.3); Eosinophils Percent Auto 12.9 % (0-4.4); Immature Granulocyte Absolute 0.03 K/mm3 (0.00-0.031); Immature Granulocyte Percent A 0.3 % (0-0.5); Immature Platelet Fraction Pct 6.6 % (0.9-11.2); Lymphocytes Absolute Auto 1.17 K/mm3 (0.9-3.2); Lymphocytes Percent Auto 13.6 % (18.3-44.2); Mean Corpuscular HGB Conc 32.8 g/dl (32-36); Mean Corpuscular Hemoglobin 31.8 pg (26-34); Mean Corpuscular Volume 96.9 fl (80-100); Mean Platelet Volume 10.6 fl (7.4-10.4); Monocytes Absolute Auto 0.9 K/mm3 (0.1-0.6); Monocytes Percent Auto 10.1 % (2.6-8.5); Neutrophils Absolute Auto 5.3 K/mm3 (1.3-6.7); Neutrophils Percent Auto 61.9 % (45.5-73.1); Nucleated Red Blood Cells Absolute Auto 0.1 K/mm3 (0.0-0.012); Nucleated Red Blood Cells Perc 0.7 % (0.0-0.2); Platelet Count Result 351 k/mm3 (150-375); Red Blood Count 1.95 M/mm3 (4.6-6.20); Red Cell Distribution Width 18.3 % (11.5-14.5); White Blood Count 8.6 K/mm3 (4.5-10.0)
[2023-08-10 16:32] LABS: Alanine Aminotransferase 14 U/L (6-50); Albumin Level 3.6 g/dL (3.5-5.1); Alkaline Phosphatase 131 U/L (38-126); Anion Gap 7 mmol/L (8-16); Aspartate Amino Transferase 21 U/L (17-59); Bilirubin,Total 0.4 mg/dL (0.2-1.3); Blood Urea Nitrogen 19 mg/dL (9-20); Calcium 7.9 mg/dL (8.4-10.2); Carbon Dioxide 35 mmol/L (22-30); Chloride 91 mmol/L (98-107); Estimated CRCL calculation 37 ml/min; Estimated Glomerular Filt Rate 39; Glucose 266 mg/dL (65-110); Potassium 3.6 mmol/L (3.4-5.0); Sodium 133 mmol/L (137-145)
[2023-08-10 16:52] LABS: Hemoglobin 6.2 g/dL (14.0-18.0)
[2023-08-10 16:53] LABS: Hematocrit 18.9 % (42.0-52.0)
[2023-08-10 16:54] LABS: Platelet Estimate Adequate (Adequate); Poikilocytosis 1+ (NORMAL)
[2023-08-10 16:55] LABS: Anisocytosis 1+ (NORMAL); Hypochromasia 1+ (NORMAL); Schistocytes None Seen (NORMAL)
--- NOTE | 2023-08-10 17:31 | PC.NURSE ---
Pts called POC reviewed with her. Denies any questions or comments.
[2023-08-10] MEDS: SODIUM CHLORIDE 0.9% IV 250 ML 30 ML IV CONT (18:35)
--- NOTE | 2023-08-10 18:39 | PC.NURSE ---
Transfusion initiated. Pt denies any c/o at this time.
--- NOTE | 2023-08-10 19:01 | PC.NURSE ---
pt tolerating transfusion. Denies any c/o at this time
--- NOTE | 2023-08-10 19:27 | PC.NURSE ---
Report given to Dannielle NGUYEN
--- NOTE | 2023-08-10 19:35 | PC.NURSE ---
THIS RN ASSUMED CARE OF PATIENT. THIS RN TOOK PATIENT REPORT FROM WENDY HERNANDEZ.
--- NOTE | 2023-08-10 20:06 | PC.NURSE ---
THIS RN ATTEMPTED TO CALL REPORT TO [facility] ABOUT PT COMING BACK TO [facility]. THIS RN SPOKE WITH YARED IN ATTEMPT TO GIVE REPORT WHO PLACED THIS RN ON HOLD. THIS RN THEN SPOKE WITH MARYANNE AT [facility] WHO SENT THIS RN BACK ON HOLD. THIS RN WAS THEN SENT TO [facility]. THIS RN LEFT A MESSAGE FOR SOMEONE TO CALL THIS RN BACK.
== END 2023-08-10 21:53 ==
PROVIDERS: Emergency Provider Student in an Organized Health Care Education/Training Program
DX: D64.9 Anemia, unspecified (principal); E11.22 Type 2 diabetes mellitus with diabetic chronic kidney disease; I13.2 Hypertensive heart and chronic kidney disease with heart failure and with stage 5 chronic kidney disease, or end stage renal disease; N18.6 End stage renal disease; I50.30 Unspecified diastolic (congestive) heart failure; Z99.2 Dependence on renal dialysis; E11.42 Type 2 diabetes mellitus with diabetic polyneuropathy; G47.33 Obstructive sleep apnea (adult) (pediatric); J44.9 Chronic obstructive pulmonary disease, unspecified; F32.A Depression, unspecified; Z96.1 Presence of intraocular lens; Z98.42 Cataract extraction status, left eye; Z98.41 Cataract extraction status, right eye; Z87.891 Personal history of nicotine dependence; Z90.49 Acquired absence of other specified parts of digestive tract; Z79.4 Long term (current) use of insulin; Z79.82 Long term (current) use of aspirin
CPT/HCPCS: 36415; 36430; 80053; 85025; 85055; 86850; 86900; 86901; 86923; 96360; 96361; 99284; 99285; J7050; P9016

== ENCOUNTER 2024-06-27 15:02 | Emergency (ER) | payer MEDICARE, SELFPAY ==
[2024-06-27] VITALS (8 sets, daily range): BP systolic 119–151; BP diastolic 62–82; PULSE 73–83; RESP 14–21; TEMP 36.6; O2SAT 94–100
--- NOTE | ~2024-06-27 | CT_ITS ---
History: Confusion PROCEDURE: CT head without contrast. COMPARISON: 06/02/2023 TECHNIQUE: Axial imaging of the head performed from the skull base to the vertex without IV contrast. Sagittal a nd coronal reformations obtained. DLP: 681 mGy-cm FINDINGS: The ventricles are enlarged. The dilatation of the ventricles is proportional to the degree of sulcal prominence, not uncommon in the senescent brain. Decreased attenuation is identified within the periventricular white matter, likely secondary to micr ovascular ischemic disease, in a patient of this age. There is no mass, mass effect or midline shift. There is no abnormal extra-axial fluid collection or intracranial hemorrhage. Visualized paranasal sinuses are clear. The mastoid air cells are well aerated. No acute displaced fractures within the overlying cranium. Impression: No acute intracranial hemorrhage or suspicious mass effect. Reviewed, dictated and finalized at location A. ET OPERATOR Impression: No acute intracranial hemorrhage or suspicious mass effect.
[2024-06-27 15:13] LABS: Glucose Point of Care 278 mg/dl (65-105)
--- NOTE | 2024-06-27 15:45 | ED.RECABL ---
HPI - Recheck/Abnormal Lab/Rx General Chief Complaint: Recheck/Abnormal Lab/Rx <Meenu Kidd PA-C - Last Filed: 06/27/24 15:48> Stated Complaint: no medical complaints, hyperglycemia x few weeks <Meenu Kidd PA-C - Last Filed: 06/27/24 15:48> Time Seen by Provider: 06/27/24 15:46 <Meenu Kidd PA-C - Last Filed: 06/27/24 15:48> Focused HPI: This is a 78 year old male that presents to the ER for elevated blood sugar readings. Ongoing over the last couple of weeks. His grandson called 911 to have him evaluated. He has not complaints currently. He did finish his dialysis treatment today GENERAL: Elderly, well-nourished, and in no acute distress. HEAD: Normocephalic, atraumatic. CHEST: Clear to auscultation. ?No respiratory distress. HEART: Regular rate and rhythm.? NEURO: ?Alert and oriented x3. Patient screened in triage and initial orders placed.? ?Additional care and disposition to be based upon?diagnostic testing and treatment. <Meenu Kidd PA-C - Last Filed: 06/27/24 15:48> Focused HPI: This is a 78 year old male that presents to the ER for elevated blood sugar readings. Ongoing over the last couple of weeks. His grandson called 911 to have him evaluated. He has not complaints currently. He did finish his dialysis treatment today GENERAL: Elderly, well-nourished, and in no acute distress. HEAD: Normocephalic, atraumatic. CHEST: Clear to auscultation. ?No respiratory distress. HEART: Regular rate and rhythm.? NEURO: ?Alert and oriented x3. Patient screened in triage and initial orders placed.? ?Additional care and disposition to be based upon?diagnostic testing and treatment. <Tami Weber PA-C - Last Filed: 06/28/24 00:56> Source: patient <ANA LUISA Montano Last Filed: 06/28/24 00:56> Mode of arrival: ambulatory <ANA LUISA Montano Last Filed: 06/28/24 00:56> Limitations: no limitations <Tami Weber PA-C - Last Filed: 06/28/24 00:56> History of Present Illness HPI narrative: Agree with above HPI. Hx of diabetes, ESRD on dialysis, COPD, CHF. On insulin therapy. <Tami Weber PA-C - Last Filed: 06/28/24 00:56> Related Data Home Medications: Home Medications Medication Instructions Recorded Confirmed gabapentin 100 mg capsule 100 mg PO BID 11/27/22 06/29/23 pantoprazole 40 mg tablet,delayed 40 mg PO .THREE TIMES WEEKLY 01/13/23 06/29/23 release amlodipine 10 mg tablet 10 mg PO .SUN/TUE/IVY/SAT 02/18/23 06/29/23 insulin glargine 100 unit/mL (3 18 unit subcut DAILY 03/23/23 06/29/23 mL) subcutaneous pen (Lantus Solostar U-100 Insulin) calcium 500 mg (as carbonate)-vit 1 ea PO DAILY 06/03/23 06/29/23 D3 5 mcg (200 unit) oral powder pack (Oyster Shell Calcium) carvedilol 25 mg tablet 25 mg PO DAILY 06/03/23 06/29/23 cyanocobalamin (vitamin B-12) 1,000 mcg .Q3WKS 06/03/23 06/29/23 1,000 mcg/mL injection syringe hydralazine 25 mg tablet 25 mg PO DAILY 06/03/23 06/29/23 insulin lispro 100 unit/mL 10 unit subcut TIDWM 06/03/23 06/29/23 subcutaneous solution (Humalog U-100 Insulin) <Meenu Kidd PA-C - Last Filed: 06/27/24 15:48> Allergies/Adverse Reactions: Allergies Allergy/AdvReac Type Severity Reaction Status Date / Time LAUREN Inhibitors Allergy Cough Verified 08/10/23 16:01 enalapril Allergy Cough Verified 08/10/23 16:01 lisinopril Allergy Cough Verified 08/10/23 16:01 quinapril Allergy Cough Verified 08/10/23 16:01 <Meenu Kidd PA-C - Last Filed: 06/27/24 15:48> Review of Systems Review of Systems: All systems reviewed & are unremarkable except as noted in HPI. <Tami Weber PA-C - Last Filed: 06/28/24 00:56> All systems reviewed & are unremarkable except as noted in HPI and below <Tami Weber PA-C - Last Filed: 06/28/24 00:56> [facility] Past Medical History Medical History: Medical History Arthritis Chronic anemia Chronic obstructive pulmonary disease Depression Diabetic peripheral neuropathy Diastolic congestive heart failure Hypertension Insulin dependent diabetes mellitus Obstructive sleep apnea <Meenu Kidd PA-C - Last Filed: 06/27/24 15:48> Surgical History Surgical History: Surgical History History of cholecystectomy History of foot surgery History of penile implant Status post cataract extraction of both eyes with insertion of intraocular lens Vascular dialysis catheter in place <Meenu Kidd PA-C - Last Filed: 06/27/24 15:48> Family History Family History: Family History Father Cancer Diabetes mellitus Mother Hyperlipidemia Hypertension Heart attack Sibling Hx of CABG Colon cancer <Meenu Kidd PA-C - Last Filed: 06/27/24 15:48> Social History Social History: Social History Social History: Surrogate medical decision maker: Palmira Ander, granddaughter. Code status: Full code. Smoking packs per day: 1 Smoking cigarettes per day: 20.0 Years smoked: 2 Smoking pack-years: 2.00 Smoking status: Former smoker Second hand tobacco smoke exposure: Yes Alcohol intake: former Drinks per week: 1 Alcohol use details: Occasional glass a wine though rare. Substance use: never Substance use type: does not use Lack of Transportation: No Lack of Food: Never True Current Housing: I Have Housing Concerned About Future Housing: No Difficulty Paying Gas/Electric Bills: No Difficulty Paying for Meds: No Currently Unemployed: No Education: High School Diploma/GED Difficulty w/ Childcare or Family Care: No Living arrangements: with family Occupation/Education: retired Additional occupation/education comments: Retired from [employer]. Spiritual care concerns: No <ANA LUISA Perez Last Filed: 06/27/24 15:48> Exam Narrative: GENERAL: Elderly, chronically ill appearing, well-nourished, non-toxic, in no acute distress. HEAD: Normocephalic, atraumatic. RESPIRATORY: Airway patent, respirations nonlabored. Clear to auscultation bilaterally, no rales, rhonchi, wheezing. CARDIOVASCULAR: Regular rate and rhythm without murmurs, rubs, or gallops. MUSCULOSKELETAL: Moves all extremities. No gross deformities. Dialsysis catheter in R upper chest. SKIN: Warm, dry, normal color. NEURO: A&O X3. Speech clear. Cranial nerves II-XII grossly intact. No ataxic movements. PSYCHIATRIC: Appropriate mood and affect. Normal interaction. <ANA LUISA Montano Last Filed: 06/28/24 00:56> Course Vital Signs Vital signs: Vital Signs Temperature 97.9 F 06/27/24 15:06 Pulse Rate 76 06/27/24 15:06 Respiratory Rate 20 06/27/24 15:06 Blood Pressure 136/62 06/27/24 15:06 Pulse Oximetry 100 06/27/24 15:06 Oxygen Delivery Room Air 06/27/24 15:06 Temperature 97.9 F 06/27/24 15:06 Pulse Rate 73 06/27/24 21:37 Respiratory Rate 16 06/27/24 21:37 Blood Pressure 151/82 H 06/27/24 19:46 Pulse Oximetry 97 06/27/24 21:37 Oxygen Delivery Room Air 06/27/24 15:06 <ANA LUISA Perez Last Filed: 06/27/24 15:48> Vital Signs Temperature 97.9 F 06/27/24 15:06 Pulse Rate 76 06/27/24 15:06 Respiratory Rate 20 06/27/24 15:06 Blood Pressure 136/62 06/27/24 15:06 Pulse Oximetry 100 06/27/24 15:06 Oxygen Delivery Room Air 06/27/24 15:06 Temperature 97.9 F 06/27/24 15:06 Pulse Rate 73 06/27/24 21:37 Respiratory Rate 16 06/27/24 21:37 Blood Pressure 151/82 H 06/27/24 19:46 Pulse Oximetry 97 06/27/24 21:37 Oxygen Delivery Room Air 06/27/24 15:06 <Tami Weber PA-C - Last Filed: 06/28/24 00:56> MDM - Recheck/Abnormal Lab/Rx MDM Narrative Medical decision making narrative: Patient presented to ED with elevated blood sugars. Family reports they were just notified by the [facility] that his blood sugars were elevated and to the 4-500s yesterday. They are unsure when the last time it has been checked. Patient is on insulin therapy. He is asymptomatic at this time. Denies any acute complaints. He did receive his full dialysis treatment today. Laboratory studies are without evidence of DKA. Bicarb slightly elevated. No anion gap. Beta hydroxybutyrate is marginally elevated. No significant other concerning findings on blood work. Blood sugars in the 3-400s here. Hemoglobin A1c 9.4%. ED nurse did confirm with [facility] staff that patient is receiving sliding scale insulin with each meal as well as 30 units of Lantus at night. I had a long discussion with patient and family that there is no diabetic emergency at this time. Do not feel he requires admission to the hospital for medication management. 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 Likely blood sugar has been very high for some time. Family is in agreement with this plan and are comfortable with patient going back to the [facility]. Patient was given his dinnertime dose sliding scale prior to discharge. Family does report that patient has been recently confused at times over the last [address] brain negative. UA consistent with infection. Will Tx. Cx obtained. Given Rocephin in the ED, discharged on Keflex. Discussed strict return precautions with patient and family. They are in agreement with plan. Discharged in stable condition. <Tami Weber PA-C - Last Filed: 06/28/24 00:56> Medical Records Attestation: I reviewed the patient's medical records. <Tami Weber PA-C - Last Filed: 06/28/24 00:56> Lab Data Attestation: I reviewed the patient's lab results. <Tami Weber PA-C - Last Filed: 06/28/24 00:56> Result diagrams: 06/27/24 16:26 06/27/24 16:26 <Meenu Kidd PA-C - Last Filed: 06/27/24 15:48> Labs: Lab Results 06/27/24 06/27/24 06/27/24 Range/Units 15:10 16:25 16:26 WBC 8.6 (4.5-10.0) K/mm3 RBC 3.86 L (4.6-6.20) M/mm3 Hgb 13.7 L D (14.0-18.0) g/dL Hct 40.9 L (42.0-52.0) % MCV 106.0 H (80-100) fl MCH 35.5 H (26-34) pg MCHC 33.5 (32-36) g/dl RDW 14.7 H (11.5-14.5) % Plt Count 331 (150-375) k/mm3 MPV 10.0 (7.4-10.4) fl Immature Gran % (Auto) 0.3 (0-0.5) % Neut % (Auto) 63.5 (45.5-73.1) % Lymph % (Auto) 19.8 (18.3-44.2) % [place] % (Auto) 11.4 H (2.6-8.5) % Eos % (Auto) 3.8 (0-4.4) % Baso % (Auto) 1.2 (0.2-1.2) % Lymph # (Auto) 1.70 (0.9-3.2) K/mm3 [place] # (Auto) 1.0 H (0.1-0.6) K/mm3 Eos # (Auto) 0.3 (0-0.3) K/mm3 Baso # (Auto) 0.1 (0.0-0.1) K/mm3 Abs Immat Gran (auto) 0.03 (0.00-0.031) K/mm3 Absolute Neuts (auto) 5.4 (1.3-6.7) K/mm3 Absolute Nucleated RBC 0.000 (0.0-0.012) K/mm3 Nucleated RBC % 0.0 (0.0-0.2) % Platelet Estimate Adequate (Adequate) Anisocytosis 1+ Stomatocytes 1+ Schistocytes None seen Sodium 134 L (137-145) mmol/L Potassium 4.0 (3.4-5.0) mmol/L Chloride 90 L (98-107) mmol/L Carbon Dioxide 35 H (22-30) mmol/L Anion Gap 9 (4-12) mmol/L BUN 16 (9-20) mg/dL Creatinine 1.90 H (0.7-1.3) mg/dL Estim Creat Clear Calc 34 ml/min Estimated GFR 35 L (59 - ) Glucose 316 H (65-110) mg/dL POC Capillary Glucose 278 H (65-105) mg/dl Hemoglobin A1c 9.4 H (<5.7) % Calcium 8.4 (8.4-10.2) mg/dL Phosphorus 2.5 (2.5-4.5) mg/dL Magnesium 1.8 (1.6-2.3) mg/dL Total Bilirubin 0.4 (0.2-1.3) mg/dL AST 25 (17-59) U/L ALT 17 (6-50) U/L Alkaline Phosphatase 90 (38-126) U/L Total Protein 8.0 (6.3-8.2) g/dL Albumin 4.1 (3.5-5.1) g/dL Beta-Hydroxybutyrate/Acetoacetate 0.33 H (0.02-0.27) mmol/L Urine Color (Yellow) Urine Appearance (Clear) Urine pH (5.0-9.0) Ur Specific [place] (1.001-1.035) Urine Protein (Negative) mg/dL Urine Glucose (UA) (Negative) mg/dL Urine Ketones (Negative) mg/dL Ur Blood (Man) (Negative) Urine Nitrate (Negative) Urine Bilirubin (Negative) Urine Urobilinogen (<2.0) mg/dL Add Ur Microanalysis Leukocyte Esterase Rfl (Negative) ARON/UL Urine RBC (0-2) /hpf Urine WBC (0-3) /hpf Ur Squamous Epith Cells (Few) /hpf Urine Bacteria /hpf Urine Casts 06/27/24 06/27/24 Range/Units 19:14 19:20 WBC (4.5-10.0) K/mm3 RBC (4.6-6.20) M/mm3 Hgb (14.0-18.0) g/dL Hct (42.0-52.0) % MCV (80-100) fl MCH (26-34) pg MCHC (32-36) g/dl RDW (11.5-14.5) % Plt Count (150-375) k/mm3 MPV (7.4-10.4) fl Immature Gran % (Auto) (0-0.5) % Neut % (Auto) (45.5-73.1) % Lymph % (Auto) (18.3-44.2) % [place] % (Auto) (2.6-8.5) % Eos % (Auto) (0-4.4) % Baso % (Auto) (0.2-1.2) % Lymph # (Auto) (0.9-3.2) K/mm3 [place] # (Auto) (0.1-0.6) K/mm3 Eos # (Auto) (0-0.3) K/mm3 Baso # (Auto) (0.0-0.1) K/mm3 Abs Immat Gran (auto) (0.00-0.031) K/mm3 Absolute Neuts (auto) (1.3-6.7) K/mm3 Absolute Nucleated RBC (0.0-0.012) K/mm3 Nucleated RBC % (0.0-0.2) % Platelet Estimate (Adequate) Anisocytosis Stomatocytes Schistocytes Sodium (137-145) mmol/L Potassium (3.4-5.0) mmol/L Chloride (98-107) mmol/L Carbon Dioxide (22-30) mmol/L Anion Gap (4-12) mmol/L BUN (9-20) mg/dL Creatinine (0.7-1.3) mg/dL Estim Creat Clear Calc ml/min Estimated GFR (59 - ) Glucose (65-110) mg/dL POC Capillary Glucose 415 H (65-105) mg/dl Hemoglobin A1c (<5.7) % Calcium (8.4-10.2) mg/dL Phosphorus (2.5-4.5) mg/dL Magnesium (1.6-2.3) mg/dL Total Bilirubin (0.2-1.3) mg/dL AST (17-59) U/L ALT (6-50) U/L Alkaline Phosphatase (38-126) U/L Total Protein (6.3-8.2) g/dL Albumin (3.5-5.1) g/dL Beta-Hydroxybutyrate/Acetoacetate (0.02-0.27) mmol/L Urine Color Dark yellow (Yellow) Urine Appearance Turbid H (Clear) Urine pH 5.5 (5.0-9.0) Ur Specific [place] 1.014 (1.001-1.035) Urine Protein 3+ H (Negative) mg/dL Urine Glucose (UA) Negative (Negative) mg/dL Urine Ketones Trace H (Negative) mg/dL Ur Blood (Man) 2+ H (Negative) Urine Nitrate Negative (Negative) Urine Bilirubin Negative (Negative) Urine Urobilinogen 0.2 (<2.0) mg/dL Add Ur Microanalysis Reviewed Leukocyte Esterase Rfl 3+ H (Negative) ARON/UL Urine RBC 0-2 (0-2) /hpf Urine WBC >100 H (0-3) /hpf Ur Squamous Epith Cells Few (Few) /hpf Urine Bacteria 4+ /hpf Urine Casts >20 <Meenu Kidd PA-C - Last Filed: 06/27/24 15:48> Lab Results 06/27/24 06/27/24 06/27/24 Range/Units 15:10 16:25 16:26 WBC 8.6 (4.5-10.0) K/mm3 RBC 3.86 L (4.6-6.20) M/mm3 Hgb 13.7 L D (14.0-18.0) g/dL Hct 40.9 L (42.0-52.0) % MCV 106.0 H (80-100) fl MCH 35.5 H (26-34) pg MCHC 33.5 (32-36) g/dl RDW 14.7 H (11.5-14.5) % Plt Count 331 (150-375) k/mm3 MPV 10.0 (7.4-10.4) fl Immature Gran % (Auto) 0.3 (0-0.5) % Neut % (Auto) 63.5 (45.5-73.1) % Lymph % (Auto) 19.8 (18.3-44.2) % [place] % (Auto) 11.4 H (2.6-8.5) % Eos % (Auto) 3.8 (0-4.4) % Baso % (Auto) 1.2 (0.2-1.2) % Lymph # (Auto) 1.70 (0.9-3.2) K/mm3 [place] # (Auto) 1.0 H (0.1-0.6) K/mm3 Eos # (Auto) 0.3 (0-0.3) K/mm3 Baso # (Auto) 0.1 (0.0-0.1) K/mm3 Abs Immat Gran (auto) 0.03 (0.00-0.031) K/mm3 Absolute Neuts (auto) 5.4 (1.3-6.7) K/mm3 Absolute Nucleated RBC 0.000 (0.0-0.012) K/mm3 Nucleated RBC % 0.0 (0.0-0.2) % Platelet Estimate Adequate (Adequate) Anisocytosis 1+ Stomatocytes 1+ Schistocytes None seen Sodium 134 L (137-145) mmol/L Potassium 4.0 (3.4-5.0) mmol/L Chloride 90 L (98-107) mmol/L Carbon Dioxide 35 H (22-30) mmol/L Anion Gap 9 (4-12) mmol/L BUN 16 (9-20) mg/dL Creatinine 1.90 H (0.7-1.3) mg/dL Estim Creat Clear Calc 34 ml/min Estimated GFR 35 L (59 - ) Glucose 316 H (65-110) mg/dL POC Capillary Glucose 278 H (65-105) mg/dl Hemoglobin A1c 9.4 H (<5.7) % Calcium 8.4 (8.4-10.2) mg/dL Phosphorus 2.5 (2.5-4.5) mg/dL Magnesium 1.8 (1.6-2.3) mg/dL Total Bilirubin 0.4 (0.2-1.3) mg/dL AST 25 (17-59) U/L ALT 17 (6-50) U/L Alkaline Phosphatase 90 (38-126) U/L Total Protein 8.0 (6.3-8.2) g/dL Albumin 4.1 (3.5-5.1) g/dL Beta-Hydroxybutyrate/Acetoacetate 0.33 H (0.02-0.27) mmol/L Urine Color (Yellow) Urine Appearance (Clear) Urine pH (5.0-9.0) Ur Specific [place] (1.001-1.035) Urine Protein (Negative) mg/dL Urine Glucose (UA) (Negative) mg/dL Urine Ketones (Negative) mg/dL Ur Blood (Man) (Negative) Urine Nitrate (Negative) Urine Bilirubin (Negative) Urine Urobilinogen (<2.0) mg/dL Add Ur Microanalysis Leukocyte Esterase Rfl (Negative) ARON/UL Urine RBC (0-2) /hpf Urine WBC (0-3) /hpf Ur Squamous Epith Cells (Few) /hpf Urine Bacteria /hpf Urine Casts 06/27/24 06/27/24 Range/Units 19:14 19:20 WBC (4.5-10.0) K/mm3 RBC (4.6-6.20) M/mm3 Hgb (14.0-18.0) g/dL Hct (42.0-52.0) % MCV (80-100) fl MCH (26-34) pg MCHC (32-36) g/dl RDW (11.5-14.5) % Plt Count (150-375) k/mm3 MPV (7.4-10.4) fl Immature Gran % (Auto) (0-0.5) % Neut % (Auto) (45.5-73.1) % Lymph % (Auto) (18.3-44.2) % [place] % (Auto) (2.6-8.5) % Eos % (Auto) (0-4.4) % Baso % (Auto) (0.2-1.2) % Lymph # (Auto) (0.9-3.2) K/mm3 [place] # (Auto) (0.1-0.6) K/mm3 Eos # (Auto) (0-0.3) K/mm3 Baso # (Auto) (0.0-0.1) K/mm3 Abs Immat Gran (auto) (0.00-0.031) K/mm3 Absolute Neuts (auto) (1.3-6.7) K/mm3 Absolute Nucleated RBC (0.0-0.012) K/mm3 Nucleated RBC % (0.0-0.2) % Platelet Estimate (Adequate) Anisocytosis Stomatocytes Schistocytes Sodium (137-145) mmol/L Potassium (3.4-5.0) mmol/L Chloride (98-107) mmol/L Carbon Dioxide (22-30) mmol/L Anion Gap (4-12) mmol/L BUN (9-20) mg/dL Creatinine (0.7-1.3) mg/dL Estim Creat Clear Calc ml/min Estimated GFR (59 - ) Glucose (65-110) mg/dL POC Capillary Glucose 415 H (65-105) mg/dl Hemoglobin A1c (<5.7) % Calcium (8.4-10.2) mg/dL Phosphorus (2.5-4.5) mg/dL Magnesium (1.6-2.3) mg/dL Total Bilirubin (0.2-1.3) mg/dL AST (17-59) U/L ALT (6-50) U/L Alkaline Phosphatase (38-126) U/L Total Protein (6.3-8.2) g/dL Albumin (3.5-5.1) g/dL Beta-Hydroxybutyrate/Acetoacetate (0.02-0.27) mmol/L Urine Color Dark yellow (Yellow) Urine Appearance Turbid H (Clear) Urine pH 5.5 (5.0-9.0) Ur Specific [place] 1.014 (1.001-1.035) Urine Protein 3+ H (Negative) mg/dL Urine Glucose (UA) Negative (Negative) mg/dL Urine Ketones Trace H (Negative) mg/dL Ur Blood (Man) 2+ H (Negative) Urine Nitrate Negative (Negative) Urine Bilirubin Negative (Negative) Urine Urobilinogen 0.2 (<2.0) mg/dL Add Ur Microanalysis Reviewed Leukocyte Esterase Rfl 3+ H (Negative) ARON/UL Urine RBC 0-2 (0-2) /hpf Urine WBC >100 H (0-3) /hpf Ur Squamous Epith Cells Few (Few) /hpf Urine Bacteria 4+ /hpf Urine Casts >20 <Tami Weber PA-C - Last Filed: 06/28/24 00:56> Imaging Data Attestation: I personally reviewed and interpreted this imaging study as follows: <Tami Weber PA-C - Last Filed: 06/28/24 00:56> Radiologist's impression: ITS Impressions Head CT 06/27/24 20:47 Impression: No acute intracranial hemorrhage or suspicious mass effect. <Tami Weber PA-C - Last Filed: 06/28/24 00:56> Discharge Plan Discharge Clinical Impression: Uncontrolled diabetes mellitus with hyperglycemia, ESRD on hemodialysis, UTI (urinary tract infection) <ANA LUISA Perez Last Filed: 06/27/24 15:48> Patient Disposition: [facility] Living <ANA LUISA Perez Last Filed: 06/27/24 15:48> Condition: Stable <ANA LUISA Perez Last Filed: 06/27/24 15:48> Instructions: Antibiotic Form, Urinary Tract Infection in Men (ED), Diabetic Hyperglycemia (ED) <ANA LUISA Perez Last Filed: 06/27/24 15:48> Additional Instructions: Take antibiotics as prescribed for urinary tract infection. Continue insulin therapy. Recommend monitoring blood sugars and keeping recording of the numbers daily. Follow-up with primary care doctor or endocrinology for further management of diabetes/medication adjustment. Return for new or worsening concerns. <ANA LUISA Perez Last Filed: 06/27/24 15:48> Prescriptions: New cephalexin 500 mg capsule 500 mg PO Q6H 7 Days Qty: 28 0RF No Action pantoprazole 40 mg tablet,delayed release (DR/EC) 40 mg PO .THREE TIMES WEEKLY Rx Instructions: Pt takes this three times per week on Sunday, Sunday and Sunday. gabapentin 100 mg capsule 100 mg PO BID amlodipine 10 mg tablet 10 mg PO .SUN/E/IVY/SAT carvedilol 25 mg Tablet 25 mg PO DAILY cyanocobalamin (vitamin B-12) 1,000 mcg/mL Syringe 1,000 mcg .Q3WKS Rx Instructions: IM hydralazine 25 mg Tablet 25 mg PO DAILY Rx Instructions: pt takes an extra dose on these days Oyster Shell Calcium-Vit D3 500 mg-5 mcg (200 unit) Powder In Packet 1 ea PO DAILY insulin lispro [Humalog U-100 Insulin] 100 unit/mL solution 10 unit subcut TIDWM Retacrit 10,000 unit/mL Solution 10,000 unit IV PUSH MOWEFR@09 Qty: 10 0RF Rx Instructions: To be given with hemodialysis sessions every Sunday, Sunday, and Sunday. Slow Release Iron 142 mg (45 mg iron) Tablet Extended Release 142 mg PO DAILY@0800 Qty: 60 0RF insulin glargine [Lantus Solostar U-100 Insulin] 100 unit/mL (3 mL) insulin pen 18 unit subcut DAILY hydrochlorothiazide 25 mg Tablet 25 mg PO QAM Qty: 30 0RF bupropion HCl 75 mg Tablet 75 mg PO Q12HR Qty: 60 0RF aspirin [Children's Aspirin] 81 mg Tablet,Chewable 81 mg PO DAILY@0800 Qty: 30 0RF sertraline [Zoloft] 50 mg Tablet 25 mg PO QAM Qty: 30 0RF ropinirole 0.5 mg tablet 0.5 mg PO HS Qty: 30 0RF <Meenu Kidd PA-C - Last Filed: 06/27/24 15:48> Follow-up/Referrals: PHYSICIAN NOT ON STAFF,NONSTAFF [Non-Staff] - <Meenu Kidd PA-C - Last Filed: 06/27/24 15:48> Time of Disposition: 20:51 <Meenu Kidd PA-C - Last Filed: 06/27/24 15:48> 20:51 <Tami Weber PA-C - Last Filed: 06/28/24 00:56>
[2024-06-27 16:36] LABS: Basophils Absolute Auto 0.1 K/mm3 (0.0-0.1); Basophils Percent Auto 1.2 % (0.2-1.2); Eosinophils Absolute Auto 0.3 K/mm3 (0-0.3); Eosinophils Percent Auto 3.8 % (0-4.4); Hematocrit 40.9 % (42.0-52.0); Hemoglobin 13.7 g/dL (14.0-18.0); Immature Granulocyte Absolute 0.03 K/mm3 (0.00-0.031); Immature Granulocyte Percent A 0.3 % (0-0.5); Lymphocytes Percent Auto 19.8 % (18.3-44.2); Mean Corpuscular HGB Conc 33.5 g/dl (32-36); Mean Corpuscular Hemoglobin 35.5 pg (26-34); Monocytes Percent Auto 11.4 % (2.6-8.5); Neutrophils Absolute Auto 5.4 K/mm3 (1.3-6.7); Neutrophils Percent Auto 63.5 % (45.5-73.1); Platelet Count Result 331 k/mm3 (150-375); Red Blood Count 3.86 M/mm3 (4.6-6.20); Red Cell Distribution Width 14.7 % (11.5-14.5); White Blood Count 8.6 K/mm3 (4.5-10.0)
--- NOTE | 2024-06-27 16:44 | PC.NURSE ---
pt is a dialysis pt, states he makes minimal urine
[2024-06-27 16:47] LABS: Alanine Aminotransferase 17 U/L (6-50); Albumin Level 4.1 g/dL (3.5-5.1); Alkaline Phosphatase 90 U/L (38-126); Anion Gap 9 mmol/L (4-12); Aspartate Amino Transferase 25 U/L (17-59); Bilirubin,Total 0.4 mg/dL (0.2-1.3); Blood Urea Nitrogen 16 mg/dL (9-20); Calcium 8.4 mg/dL (8.4-10.2); Carbon Dioxide 35 mmol/L (22-30); Chloride 90 mmol/L (98-107); Estimated CRCL calculation 34 ml/min; Estimated Glomerular Filt Rate 35; Glucose 316 mg/dL (65-110); Magnesium 1.8 mg/dL (1.6-2.3); Phosphorus 2.5 mg/dL (2.5-4.5); Sodium 134 mmol/L (137-145)
[2024-06-27 16:50] LABS: Anisocytosis 1+; Platelet Estimate Adequate (Adequate); Stomatocytes 1+
[2024-06-27 16:51] LABS: Schistocytes None Seen
[2024-06-27 16:53] LABS: Beta-Hydroxybutyrate/Acetoacetate 0.33 mmol/L (0.02-0.27)
--- NOTE | 2024-06-27 18:35 | PC.NURSE ---
pt states that they only produce urine once a day or every other day.
--- NOTE | 2024-06-27 19:18 | PC.NURSE ---
called [facility] at 1849 to request daily insulin orders for patient. commercial finance analyst stated RN is in a residents room and unable to come to the phone. left name and call back number. called facility again at 1909 and was put on hold until 191 where the commercial finance analyst states RN is still in another room and not able to tell this RN what medication pt is prescribed.
[2024-06-27 19:19] LABS: Hemoglobin A1C 9.4 % (<5.7)
[2024-06-27 19:23] LABS: Glucose Point of Care 415 mg/dl (65-105)
[2024-06-27 19:49] LABS: Add Urine Microscopic? YES; Appearance Urine Turbid (Clear); Bacteria Urine 4+ /hpf; Bilirubin Urine Negative (Negative); Blood Urine 2+ (Negative); Color Urine Dark Yellow (Yellow); Glucose Urine UA Negative (Negative); Ketones Urine Trace mg/dL (Negative); Leukocyte Esterase Ur 3+ LEU/UL (Negative); Need Manual Microscopic Reviewed; Nitrate Urine Negative (Negative); Non Pathogenic Casts >20; Protein Urine 3+ mg/dL (Negative); RBC Urine 0-2 /hpf (0-2); Specific Grav Ur 1.014 (1.001-1.035); Squamous Epithelial Cell Urine Few /hpf (Few); Urobilinogen Urine 0.2 mg/dL (<2.0); WBC Urine >100 /hpf (0-3); pH Urine 5.5 (5.0-9.0)
[2024-06-27] MEDS: INSULIN ASPART (*BKC) 100 UNITS/ML 12 UNITS SUB-Q (21:00)
== END 2024-06-27 21:30 ==
PROVIDERS: Physician Assistant; Emergency Provider Physician Assistant
DX: E11.65 Type 2 diabetes mellitus with hyperglycemia (principal); N39.0 Urinary tract infection, site not specified; E11.22 Type 2 diabetes mellitus with diabetic chronic kidney disease; I13.2 Hypertensive heart and chronic kidney disease with heart failure and with stage 5 chronic kidney disease, or end stage renal disease; I50.30 Unspecified diastolic (congestive) heart failure; N18.6 End stage renal disease; Z99.2 Dependence on renal dialysis; E11.42 Type 2 diabetes mellitus with diabetic polyneuropathy; J44.9 Chronic obstructive pulmonary disease, unspecified; G47.33 Obstructive sleep apnea (adult) (pediatric); Z87.891 Personal history of nicotine dependence; Z90.49 Acquired absence of other specified parts of digestive tract; Z96.1 Presence of intraocular lens; Z98.42 Cataract extraction status, left eye; Z98.41 Cataract extraction status, right eye; Z79.82 Long term (current) use of aspirin; Z79.899 Other long term (current) drug therapy; Z79.4 Long term (current) use of insulin
CPT/HCPCS: 36415; 70450; 80053; 81001; 82010; 82948; 83036; 83735; 84100; 85025; 87077; 87086; 87186; 96365; 99284; J0696; J1815